=== PATIENT | female | born 2000 | race Caucasian/White ===

== ENCOUNTER 2023-03-25 15:29 | Emergency (ER) | payer OTHER, SELFPAY ==
[2023-03-25 15:32] VITALS: BP 140/92; PULSE 129; RESP 18; TEMP 37; O2SAT 98; BMI 37.8
--- NOTE | 2023-03-25 15:38 | US_ITS ---
[address] [address] Patient Name: DANIEL ARMENDARIZ MRN: [id number] date: 2000 Sex: F Assigned Patient Location: ER Current Patient Location: ER Accession/Order Number: [id number] Exam Date: 03/25/2023 15:45 Report Date: 03/25/2023 16:33 At the request of: VIOLETA SHARP Procedure: US OB transvaginal PROCEDURE: US OB transvaginal, 03/25/2023 3:45 PM EDT CLINICAL INDICATIONS: Encounter for first trimester , vaginal bleeding, passing clots for 2 hours 1 para 0 LMP 02/11/2023 Expected gestational age by LMP: 6 weeks 0 days Expected ANTONIO by LMP: 11/18/2023 COMPARISON: None TECHNIQUE: Transvaginal first trimester obstetric sonogram, grayscale and color assessment. FINDINGS: Uterus: A single intrauterine is identified of uncertain viability. Intrauterine gestational sac, normal yolk sac is evident. There is no sign of embryonic pole or cardiac activity. Mean gestational sac: 1.0 cm Sonographic gestational age: 5 weeks 0 days +/- 3 days Sonographic ANTONIO: 11/25/2023. No perigestational hemorrhage. Maternal right ovary: 3.2 x 2.9 x 2.0 cm, volume 10 mL. Normal sonographic morphology. Maternal left ovary: 3.8 x 2.5 x 2.3 cm. Volume 12 mL. 1.9 x 1.5 x 1.7 cm maternal left ovarian corpus luteal cyst is favored. Transvaginal cervical length, 4.5 cm. Closed. US/US OB transvaginal IMPRESSION: 1. Single intrauterine , uncertain viability. Intrauterine gestational sac with normal yolk sac is evident. Embryonic pole or cardiac activity could not be documented. 14 day follow-up sonography recommended. 2. Gestational sac size would be consistent with 5 week 0 day gestation +/- days 3. Sonographic ANTONIO 11/25/2023 4. No perigestational hemorrhage 5. Normal maternal right ovarian sonographic morphology 6. 1.9 cm maternal left ovarian corpus luteal cyst Electronically authenticated by: MADDISON BACK Date: 03/25/2023 16:33
--- NOTE | 2023-03-25 15:45 | ED.PREGNANC1 ---
HPI - General Chief complaint: OB/Uterine Contractions Stated complaint: MISCARRIAGE Time Seen by Provider: 03/25/23 15:32 Source: patient and family Mode of arrival: walk-in Limitations: no limitations History of Present Illness HPI Narrative: patient's here for vaginal bleeding and abdominal cramping. She believes she is approximately six weeks based on her last menstrual period. This is her 1st . She does not know her blood type or Rh. 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 She did not work last night but she still in that sleep pattern. She says around 2:30 this afternoon she woke up she had blood on her legs. Here in the Emergency Room she says she passed a clot that was approximately 3 cm in diameter but she flushed it did not seem of force. She has not seen Dr. Cha as of yet but is scheduled to do so. She has no other current medical problems. Related Data Home Medications Medication Instructions Recorded Confirmed No Known Home Medications 03/25/23 03/25/23 Allergies Allergy/AdvReac Type Severity Reaction Status Date / Time No Known Drug Allergies Allergy Verified 03/25/23 15:32 Exam Narrative Exam Narrative: awake alert somewhat apprehensive and anxious. Vital signs are stable. Color is good skin is warm and dry she's not appear to be dehydrated or ill. She's not had vomiting. No evidence of pallor or anemia on the clinical exam. She has no shortness of breath does not have any chest pain or abdominal pain at this time. She will be taken ultrasound for transvaginal ultrasonography. Constitutional Vital Signs, click to edit/add: Last Vital Signs Temp 98.6 F 03/25/23 15:32 Pulse 129 H 03/25/23 15:32 Resp 18 03/25/23 15:32 BP 140/92 H 03/25/23 15:32 Pulse Ox 98 03/25/23 15:32 O2 Del Method Room Air 03/25/23 15:32 Course Vital Signs Vital signs: Vital Signs Temperature 98.6 F 03/25/23 15:32 Pulse Rate 129 H 03/25/23 15:32 Respiratory Rate 18 03/25/23 15:32 Blood Pressure 140/92 H 03/25/23 15:32 Pulse Oximetry 98 03/25/23 15:32 Oxygen Delivery Method Room Air 03/25/23 15:32 Temperature 98.6 F 03/25/23 15:32 Pulse Rate 129 H 03/25/23 15:32 Respiratory Rate 18 03/25/23 15:32 Blood Pressure 140/92 H 03/25/23 15:32 Pulse Oximetry 98 03/25/23 15:32 Oxygen Delivery Method Room Air 03/25/23 15:32 MDM - OB/Uterine Contractions MDM Narrative Medical decision making narrative: transvaginal ultrasound does not show any evidence of an ectopic or tubal . There is evidence of gestational sac and embryonic pole but there is no cardiac activity. Her quantitative hCG is pending. This report was given to the patient and she was advised to follow up with her [employer]TER on Monday. She is Rh positive. 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 Lab Data Labs: Lab Results 03/25/23 Range/Units 15:48 WBC 11.4 H (4.0-11.0) 10^3/uL RBC 4.69 (4.20-5.40) 10^6/uL Hgb 13.9 (12.0-16.0) g/dL Hct 40.7 (36.0-48.0) % MCV 86.8 (81.0-99.0) fL MCH 29.6 (26.7-34.0) pg MCHC 34.2 (29.9-35.2) g/dL RDW 11.8 (11.0-15.0) % Plt Count 281 (150-450) 10^3/uL MPV 9.9 (9.5-13.5) fL Neut % (Auto) 68.2 (43.0-75.0) % Lymph % (Auto) 25.0 (20.5-60.0) % Pender % (Auto) 6.0 (1.7-12.0) % Eos % (Auto) 0.1 L (0.9-7.0) % Baso % (Auto) 0.4 (0.2-2.0) % Neut # (Auto) 7.8 H (1.4-6.5) 10^3/uL Lymph # (Auto) 2.9 (1.2-3.8) 10^3/uL Pender # (Auto) 0.7 (0.3-0.8) 10^3/uL Eos # (Auto) 0.0 (0.0-0.7) 10^3/uL Baso # (Auto) 0.0 (0.0-0.1) 10^3/uL Abs Immat Gran (auto) 0.03 (0.00-0.03) 10^3/uL Imm/Tot Granulo (auto) 0.3 (0.0-0.5) % Blood Type A Positive Discharge Plan Discharge Chief Complaint: OB/Uterine Contractions Clinical Impression: Miscarriage, threatened, early Patient Disposition: Home, Self-Care Time of Disposition Decision: 17:09 Prescriptions / Home Meds: No Action No Known Home Medications Additional Instructions: repeat hCG on Monday, then follow-up with Dr. Cha. Bedrest until then Stand Alone Forms: Portal Instructions Referrals: Physician,Non-Staff, [Primary Care Provider] - 1 week
[2023-03-25 15:58] LABS: Basophils Percent Auto 0.4 % (0.2-2.0); Eosinophils Percent Auto 0.1 % (0.9-7.0); Hematocrit 40.7 % (36.0-48.0); Hemoglobin 13.9 g/dL (12.0-16.0); Immature Granulocytes Abs Auto 0.03 10^3/uL (0.00-0.03); Immature Granulocytes Pct Auto 0.3 % (0.0-0.5); Lymphocytes Absolute Auto 2.9 10^3/uL (1.2-3.8); Mean Corpuscular HGB Conc 34.2 g/dL (29.9-35.2); Mean Corpuscular Hemoglobin 29.6 pg (26.7-34.0); Mean Corpuscular Volume 86.8 fL (81.0-99.0); Mean Platelet Volume 9.9 fL (9.5-13.5); Monocytes Absolute Auto 0.7 10^3/uL (0.3-0.8); Neutrophils Absolute Auto 7.8 10^3/uL (1.4-6.5); Neutrophils Percent Auto 68.2 % (43.0-75.0); Platelet Count 281 10^3/uL (150-450); Red Blood Count 4.69 10^6/uL (4.20-5.40); Red Cell Distribution Width 11.8 % (11.0-15.0); White Blood Count 11.4 10^3/uL (4.0-11.0)
[2023-03-25 17:31] LABS: HCG Quantitative 9864 mIU/mL
== END 2023-03-25 17:17 | disposition home or self-care (01) ==
PROVIDERS: Emergency Provider Emergency Medicine Emergency Medical Services
DX: O20.0 Threatened abortion (principal); Z3A.01 Less than 8 weeks gestation of pregnancy
CPT/HCPCS: 36415; 76817; 84702; 85025; 86900; 86901; 99284

== ENCOUNTER 2023-03-27 16:51 | Outpatient (OUT) | payer OTHER, SELFPAY ==
[2023-03-27 17:44] LABS: HCG Quantitative 17516 mIU/mL
== END 2023-03-27 16:52 | disposition home or self-care (01) ==
LOC: LAB 16:53
PROVIDERS: PCP Obstetrics & Gynecology; Visit Provider Emergency Medicine Emergency Medical Services
DX: O20.0 Threatened abortion (principal)
CPT/HCPCS: 36415; 84702

== ENCOUNTER 2023-03-30 10:55 | Outpatient (OUT) | payer OTHER, SELFPAY ==
--- NOTE | 2023-03-30 11:02 | US_ITS ---
[address] [address] Patient Name: DANIEL ARMENDARIZ MRN: [id number] date: 2000 Sex: F Assigned Patient Location: US Current Patient Location: Accession/Order Number: [id number] Exam Date: 03/30/2023 11:02 Report Date: 03/30/2023 15:20 At the request of: NAHED SALINAS Procedure: US OB transvaginal EXAMINATION: US OB transvaginal HISTORY: VIABILITY COMPARISON: Ultrasound OB transvaginal 03/25/2023 FINDINGS: GESTATIONAL SAC: Present and normal appearing. YOLK SAC: Present and normal appearing. POLE: Present and normal appearing. CARDIAC: Present. UTERUS: Normal size and appearance. OVARIES: Right: Normal. Left: Corpus lutein cyst. CERVIX: 4.2 cm in length and closed. CUL-DE-SAC: Normal. OTHER: None. AGE BY LMP: 6 weeks 5 days ANTONIO BY LMP: 11/18/2023 AGE BY US CRL: 5 weeks 5 days ANTONIO BY US CRL: 11/25/2023 US/US OB transvaginal IMPRESSION: 1. Single live intrauterine . Electronically authenticated by: RAMA BOWMAN Date: 03/30/2023 15:20
== END 2023-03-30 10:56 | disposition home or self-care (01) ==
LOC: US 10:56
PROVIDERS: PCP Obstetrics & Gynecology; Visit Provider Obstetrics & Gynecology
DX: Z34.91 Encounter for supervision of normal pregnancy, unspecified, first trimester (principal); N92.6 Irregular menstruation, unspecified
CPT/HCPCS: 76817

== ENCOUNTER 2023-05-02 08:04 | Outpatient (OUT) | payer OTHER, SELFPAY ==
[2023-05-02 08:29] LABS: Basophils Percent Auto 0.3 % (0.2-2.0); Eosinophils Percent Auto 0.1 % (0.9-7.0); Hemoglobin 12.6 g/dL (12.0-16.0); Immature Granulocytes Abs Auto 0.02 10^3/uL (0.00-0.03); Immature Granulocytes Pct Auto 0.2 % (0.0-0.5); Lymphocytes Absolute Auto 2.2 10^3/uL (1.2-3.8); Lymphocytes Percent Auto 24.1 % (20.5-60.0); Mean Corpuscular Hemoglobin 30.1 pg (26.7-34.0); Mean Corpuscular Volume 86.1 fL (81.0-99.0); Mean Platelet Volume 10.8 fL (9.5-13.5); Monocytes Absolute Auto 0.5 10^3/uL (0.3-0.8); Monocytes Percent Auto 5.2 % (1.7-12.0); Neutrophils Absolute Auto 6.3 10^3/uL (1.4-6.5); Neutrophils Percent Auto 70.1 % (43.0-75.0); Platelet Count 199 10^3/uL (150-450); Red Blood Count 4.18 10^6/uL (4.20-5.40); Red Cell Distribution Width 12.1 % (11.0-15.0)
[2023-05-02 08:50] LABS: Estimated Average Glucose 82 mg/dL; Glycohemoglobin A1C 4.5 % (4.5-6.2)
[2023-05-03 07:12] LABS: Rubella Antibodies, IgG 7.11 index (Immune >0.99)
[2023-05-03 08:12] LABS: HIV Ab/p24 Ag Screen Non Reactive (Non Reactive)
[2023-05-03 10:11] LABS: Rapid Plasma Reagin, Quant Non Reactive titer (NonRea<1:1)
[2023-05-03 11:11] LABS: HBsAg Screen Negative (Negative); HCV Ab Non Reactive (Non Reactive)
== END 2023-05-02 08:05 | disposition home or self-care (01) ==
PROVIDERS: Visit Provider Obstetrics & Gynecology
DX: N92.6 Irregular menstruation, unspecified (principal)
CPT/HCPCS: 36415; 83036; 84443; 85025; 86592; 86762; 86803; 86850; 86900; 86901; 87086; 87340; 87389

== ENCOUNTER 2023-06-14 21:46 | Outpatient (REF) | payer OTHER, SELFPAY ==
[2023-06-21 22:11] LABS: Age Gdln ACOG Testing Note (.); HPV Aptima Negative (Negative); IGP, rfx Aptima HPV ASCU Note (.)
== END 2023-06-14 21:47 | disposition home or self-care (01) ==
LOC: LAB 21:46
PROVIDERS: Visit Provider Obstetrics & Gynecology
DX: Z01.419 Encounter for gynecological examination (general) (routine) without abnormal findings (principal)
CPT/HCPCS: 87624; G0145

== ENCOUNTER 2023-06-20 16:20 | Outpatient (OUT) | payer OTHER, SELFPAY ==
[2023-06-20 17:15] LABS: Thyroid Stimulating Hormone 4.096 uIU/mL (0.358-3.740)
== END 2023-06-20 16:21 | disposition home or self-care (01) ==
LOC: LAB 16:22
PROVIDERS: Visit Provider Obstetrics & Gynecology
DX: R79.89 Other specified abnormal findings of blood chemistry (principal)
CPT/HCPCS: 36415; 84443

== ENCOUNTER 2023-07-12 07:54 | Outpatient (OUT) | payer BC, OTHER, SELFPAY ==
--- NOTE | 2023-07-12 07:55 | US_ITS ---
[address] [address] Patient Name: DANIEL ARMENDARIZ MRN: [id number] date: 2000 Sex: F Assigned Patient Location: US Current Patient Location: Accession/Order Number: [id number] Exam Date: 07/12/2023 07:55 Report Date: 07/12/2023 09:22 At the request of: NAHED SALINAS Procedure: US OB cervical length EXAMINATION: US OB anatomy, US OB cervical length HISTORY: ANATOMY COMPARISON: No relevant comparison available. TECHNIQUE: Transabdominal sonographic examination was performed for obstetrical and evaluation. FINDINGS: Number: 1 Heart Rate: 150.0 bpm H.B. /min Amniotic Fluid Volume: Subjectively normal position: Variable Placental Location: ANTERIOR, grade 1. Placental edge 5.1 cm from the cervical os Cervix Length: 4.3 cm , closed Normal anatomy: Lateral ventricles, cerebellum, posterior fossa, nose, lips, orbits, four-chamber heart, diaphragm, stomach, kidneys, abdominal cord insertion, bladder, umbilical arteries, three-vessel cord, spine, extremities Nonvisualized: RVOT, LVOT BIOMETRY: BPD: 5.1 cm 21 weeks 4 days , 84% HC: 18.5 cm 20 weeks 6 days, 56% AC: 16.2 cm 21 weeks 2 days, 67% FL: 3.7 cm 21 weeks 4 days , 76% EFW:418.5 grams; 15 ounces, 86% FL/AC: 22.6 FL/BPD: 71.3 HC/AC: 1.2 GESTATIONAL AGE: Age by EDC: 20 weeks 4 days Age by current US: 21 weeks 2 days ANTONIO by current US: 11/20/2023 ANTONIO by EDC: 11/25/2023 US/US OB cervical length IMPRESSION: Nonvisualization of the ventricular outflow tracts Otherwise normal anatomy scan Closed cervix measuring 4.3 cm in length *Reference: [facility] Practice Guideline for the performance of Obstetric Ultrasound Examinations, April 09, 2007. Electronically authenticated by: KENDALL KRISHNAN Date: 07/12/2023 09:22
--- NOTE | 2023-07-12 07:55 | US_ITS ---
[address] [address] Patient Name: DANIEL ARMENDARIZ MRN: [id number] date: 2000 Sex: F Assigned Patient Location: US Current Patient Location: Accession/Order Number: [id number] Exam Date: 07/12/2023 07:56 Report Date: 07/12/2023 09:22 At the request of: NAHED SALINAS Procedure: US OB anatomy EXAMINATION: US OB anatomy, US OB cervical length HISTORY: ANATOMY COMPARISON: No relevant comparison available. TECHNIQUE: Transabdominal sonographic examination was performed for obstetrical and evaluation. FINDINGS: Number: 1 Heart Rate: 150.0 bpm H.B. /min Amniotic Fluid Volume: Subjectively normal position: Variable Placental Location: ANTERIOR, grade 1. Placental edge 5.1 cm from the cervical os Cervix Length: 4.3 cm , closed Normal anatomy: Lateral ventricles, cerebellum, posterior fossa, nose, lips, orbits, four-chamber heart, diaphragm, stomach, kidneys, abdominal cord insertion, bladder, umbilical arteries, three-vessel cord, spine, extremities Nonvisualized: RVOT, LVOT BIOMETRY: BPD: 5.1 cm 21 weeks 4 days , 84% HC: 18.5 cm 20 weeks 6 days, 56% AC: 16.2 cm 21 weeks 2 days, 67% FL: 3.7 cm 21 weeks 4 days , 76% EFW:418.5 grams; 15 ounces, 86% FL/AC: 22.6 FL/BPD: 71.3 HC/AC: 1.2 GESTATIONAL AGE: Age by EDC: 20 weeks 4 days Age by current US: 21 weeks 2 days ANTONIO by current US: 11/20/2023 ANTONIO by EDC: 11/25/2023 US/US OB anatomy IMPRESSION: Nonvisualization of the ventricular outflow tracts Otherwise normal anatomy scan Closed cervix measuring 4.3 cm in length *Reference: [facility] Practice Guideline for the performance of Obstetric Ultrasound Examinations, April 09, 2007. Electronically authenticated by: KENDALL KRISHNAN Date: 07/12/2023 09:22
--- OUTSIDE RECORDS SUMMARY | 2023-07-12 07:55 | XMS_ITS | CCD ---
Author Name Unknown Address [address] [place] [address] Organization [facility] Care Team Providers Care Tenant Selector Name Role Phone 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 Primary Care Provider TERRENCE WOLF Attending Unavailable ARPIT PAREKH Primary Care Unavailable ARPIT PAREKH Primary Care Unavailable WILLIAM WHITAKER Attending Unavailable NAHED SALINAS Attending Unavailable Medications Current Medications Medication Drug Class(es) Dates Sig (Normalized) Sig (Original) omeprazole 20 mg delayed release oral capsule (1 source) Proton Pump Inhibitor Start: 12-13-2021 take 1 capsule by mouth once daily omeprazole (PRILOSEC) 20 MG delayed release capsule Take 1 capsule by mouth daily 30 capsule 0 12/13/2021 Active sertraline 25 mg oral tablet (2 sources) Serotonin Reuptake Inhibitor Start: 10-24-2018 take 1 tablet by mouth once daily sertraline (ZOLOFT) 25 MG tablet Take 1 tablet by mouth daily 30 tablet 2 10/24/2018 Active Problems Problem Classification Problem Date Documented Da te Episodic/Chronic Abdominal pain (1 source) Finding of sensation of abdomen; Translations: [Unspecified abdominal pain] Episodic Esophageal disorders (3 sources) Gastroesophageal reflux disease without esophagitis; Translations: [Gastro-esophageal reflux disease without esophagitis] Onset: 7 08-26-2016 Chronic Gastrointestinal hemorrhage (1 source) Blood-tinged feces; Translations: [Melena] Episodic Menstrual disorders (2 sources) Irregular periods; Translations: [Irregular menstruation, unspecified] 04-25-2016 Chronic Other complications of (1 source) Mild hyperemesis gravidarum; Translations: [Mild hyperemesis gravidarum] Onset: 3 Episodic Other complications of (1 source) Vomiting of , unspecified; Translations: [Vomiting of , unspecified] Onset: 3 Episodic Other gastrointestinal disorders (1 source) Diarrhea; Translations: [Diarrhea, unspecified] Episodic Residual codes; unclassified (1 source) Requires varicella vaccination; Translations: [Need for varicella vaccine] Episodic Results Test Name Value Interpretation Reference Range Facil ity CBC with Diffon 05-30-2023 Abs. Basophil 0.01 k/uL Normal 0.00-0.20 [facility] Comment on above: Performed By: #### C DP, CP #### [facility] [address] [place] [address] I O Psychologist: Mike Forde MD Abs.Imm.Granulocyte 0.01 k/uL Normal 0.00-0.30 [facility] Comment on above: Performed By: #### C DP, CP #### [facility] [address] [place] [address] I O Psychologist: Mike Forde MD Abs.Neutrophil (Seg) 6.24 k/uL Normal 2.5-7.0 [facility] Comment on above: Performed By: #### C DP, CP #### [facility] [address] [place] [address] I O Psychologist: Mike Forde MD Basophils/100 WBC (Bld) 0 % Normal 0-2 [facility] Comment on above: Performed By: #### C DP, CP #### [facility] [address] [place] [address] I O Psychologist: Mike Forde MD Eosinophils (Bld) [#/Vol] 0.00 10*3/uL Normal 0.00-0.40 [facility] Comment on above: Performed By: #### C DP, CP #### [facility] [address] [place] [address] I O Psychologist: Mike Forde MD Eosinophils/100 WBC (Bld) 0 % Normal 0-5 [facility] Comment on above: Performed By: #### C DP, CP #### [facility] [address] [place], [place] [id number] I O Psychologist: Mike Forde MD Erythrocyte distribution width (RBC) [Ratio] 11.9 % Low 12.1-15.2 [facility] Comment on above: Performed By: #### C DP, CP #### [facility] [address] [place], [place] [id number] I O Psychologist: Mike Forde MD Hematocrit (Bld) [Volume fraction] 41.1 % Normal 36.0-46.0 [facility] Comment on above: Performed By: #### C DP, CP #### [facility] [address] [place] [address] I O Psychologist: Mike Forde MD Hemoglobin (Bld) [Mass/Vol] 14.5 g/dL Normal 12.0-16.0 [facility] Comment on above: Performed By: #### C DP, CP #### [facility] [address] [place] [address] I O Psychologist: Mike Forde MD Immature granulocytes/100 WBC (Bld) 0 % Normal 0-5 [facility] Comment on above: Performed By: #### C DP, CP #### [facility] [address] [place] [address] I O Psychologist: Mike Forde MD Lymphocytes (Bld) [#/Vol] 1.74 10*3/uL Normal 1.00-4.80 [facility] Comment on above: Performed By: #### C DP, CP #### [facility] [address] [place] [address] I O Psychologist: Mike Forde MD Lymphocytes/100 WBC (Bld) 21 % Normal 15-40 [facility] Comment on above: Performed By: #### C DP, CP #### [facility] [address] [place] [id number] I O Psychologist: Mike Forde MD MCH (RBC) [Entitic mass] 29.2 pg Normal 26.0-34.0 [facility] Comment on above: Performed By: #### C DP, CP #### [facility] [address] [place] [address] I O Psychologist: Mike Forde MD MCHC (RBC) [Mass/Vol] 35.3 g/dL Normal 31.0-37.0 [facility] Comment on above: Performed By: #### C DP, CP #### [facility] [address] [place] [address] I O Psychologist: Mike Forde MD MCV (RBC) [Entitic vol] 82.9 fL Normal 80.0-100.0 [facility] Comment on above: Performed By: #### C DP, CP #### [facility] [address] [place] [address] I O Psychologist: Mike Forde MD Monocytes (Bld) [#/Vol] 0.50 10*3/uL Normal 0.00-1.00 [facility] Comment on above: Performed By: #### C DP, CP #### [facility] [address] [place] [address] I O Psychologist: Mike Forde MD Monocytes/100 WBC (Bld) 6 % Normal 4-8 [facility] Comment on above: Performed By: #### C DP, CP #### [facility] [address] [place] [address] I O Psychologist: Mike Forde MD Neutrophil (Seg) 73 % Normal 47-75 [facility] Comment on above: Performed By: #### C DP, CP #### [facility] [address] [place] [address] I O Psychologist: Mike Forde MD Platelet mean volume (Bld) [Entitic vol] 10.4 fL Normal 6.0-12.0 [facility] Comment on above: Performed By: #### C DP, CP #### [facility] [address] [place] [address] I O Psychologist: Mike Forde MD Platelets (Bld) [#/Vol] 227 10*3/uL Normal 140-450 [facility] Comment on above: Performed By: #### C DP, CP #### [facility] [address] [place] [address] I O Psychologist: Mike Forde MD RBC (Bld) [#/Vol] 4.96 10*6/uL Normal 4.00-5.20 [facility] Comment on above: Performed By: #### C DP, CP #### [facility] [address] [place] [address] I O Psychologist: Mike Forde MD WBC (Bld) [#/Vol] 8.5 10*3/uL Normal 3.5-11.0 [facility] Comment on above: Performed By: #### C DP, CP #### [facility] [address] [place] [address] I O Psychologist: Mike Forde MD Comp Metabolic Profon 2022 Albumin [Mass/Vol] 4.2 g/dL Normal 3.5-5.2 [facility] Comment on above: Performed By: #### C DP, CP #### [facility] [address] [place] [address] I O Psychologist: Mike Forde MD Alkaline Phos 48 U/L Normal 35-104 [facility] Comment on above: Performed By: #### C DP, CP #### [facility] [address] [place] [address] I O Psychologist: Mike Forde MD ALT [Catalytic activity/Vol] 12 U/L Normal 5-33 [facility] Comment on above: Performed By: #### C DP, CP #### [facility] [address] [place], [place] [id number] I O Psychologist: Mike Forde MD Anion gap [Moles/Vol] 15 mmol/L Normal 9-17 [facility] Comment on above: Performed By: #### C DP, CP #### [facility] [address] [place], [place] [id number] I O Psychologist: Mike Forde MD AST [Catalytic activity/Vol] 11 U/L Normal <32 [facility] Comment on above: Performed By: #### C DP, CP #### [facility] [address] [place], [place] [id number] I O Psychologist: Mike Forde MD Bilirubin [Mass/Vol] mg/dL Low 0.3-1.2 [facility] Comment on above: Performed By: #### C DP, CP #### [facility] [address] [place], [place] [id number] I O Psychologist: Mike Forde MD BUN/CRE Ratio 14 Normal 9-20 [facility] Comment on above: Performed By: #### C DP, CP #### [facility] [address] [place], [place] [id number] I O Psychologist: Mike Forde MD Calcium [Mass/Vol] 9.7 mg/dL Normal 8.6-10.4 [facility] Comment on above: Performed By: #### C DP, CP #### [facility] [address] [place], [place] [id number] I O Psychologist: Mike Forde MD Chloride [Moles/Vol] 101 mmol/L Normal 98-107 [facility] Comment on above: Performed By: #### C DP, CP #### [facility] [address] [place], [place] [id number] I O Psychologist: Mike Forde MD CO2 [Moles/Vol] 22 mmol/L Normal 20-31 [facility] Comment on above: Performed By: #### C DP, CP #### [facility] [address] [place], [place] [id number] I O Psychologist: Mike Forde MD Creatinine [Mass/Vol] 0.5 mg/dL Normal 0.5-0.9 [facility] Comment on above: Performed By: #### C DP, CP #### [facility] [address] [place], [place] [id number] I O Psychologist: Mike Forde MD GFR/1.73 sq M.predicted among non-blacks MDRD (S/P/Bld) [Vol rate/Area] mL/min/{1.73_m2} Normal >60 [facility] Comment on above: Result Comment: These results are not intended for use in patients <18 years of age. eGFR results are calculated without a race factor using the 2020 CKD-EPI equation. Careful clinical correlation is recommended, particularly when comparing to results calculated using previous equations. The CKD-EPI equation is less accurate in patients with extremes of muscle mass, extra-renal metabolism of creatine, excessive creatine ingestion, or following therapy that affects renal tubular secretion. Performed By: #### C DP, CP #### [facility] [address] [place] [address] I O Psychologist: Mike Forde MD Glucose [Mass/Vol] 90 mg/dL Normal 70-99 [facility] Comment on above: Performed By: #### C DP, CP #### [facility] [address] [place] [address] I O Psychologist: Mike Forde MD Potassium [Moles/Vol] 3.5 mmol/L Low 3.7-5.3 [facility] Comment on above: Performed By: #### C DP, CP #### [facility] [address] [place] [address] I O Psychologist: Mike Forde MD Protein [Mass/Vol] 7.5 g/dL Normal 6.4-8.3 [facility] Comment on above: Performed By: #### C DP, CP #### [facility] [address] [place], [place] [id number] I O Psychologist: Mike Forde MD Sodium [Moles/Vol] 138 mmol/L Normal 135-144 [facility] Comment on above: Performed By: #### C DP, CP #### [facility] [address] [place], [place] [id number] I O Psychologist: Mike Forde MD Urea nitrogen [Mass/Vol] 7 mg/dL Normal 6-20 [facility] Comment on above: Performed By: #### C DP, CP #### [facility] [address] [place], [place] [id number] I O Psychologist: Mike Forde MD Basic Metabolic Profon 04-16 Anion gap [Moles/Vol] 15 mmol/L Normal -17 [facility] Comment on above: Performed By: #### C DP, BMP #### [facility] [address] [place] [address] I O Psychologist: Mike Forde MD BUN/CRE Ratio 10 Normal - [facility] Comment on above: Performed By: #### C DP, BMP #### [facility] [address] [place], [place] [id number] I O Psychologist: Mike Forde MD Calcium [Mass/Vol] 10.2 mg/dL Normal 8.6-10.4 [facility] Comment on above: Performed By: #### C DP, BMP #### [facility] [address] [place] [address] I O Psychologist: Mike Forde MD Chloride [Moles/Vol] 98 mmol/L Normal 98-107 [facility] Comment on above: Performed By: #### C DP, BMP #### [facility] [address] [place], [place] [id number] I O Psychologist: Mike Forde MD CO2 [Moles/Vol] 22 mmol/L Normal 20-31 [facility] Comment on above: Performed By: #### C DP, BMP #### [facility] [address] [place], [place] [id number] I O Psychologist: Mike Forde MD Creatinine [Mass/Vol] 0.7 mg/dL Normal 0.5-0.9 [facility] Comment on above: Performed By: #### C DP, BMP #### [facility] [address] [place] [address] I O Psychologist: Mike Forde MD GFR/1.73 sq M.predicted among non-blacks MDRD (S/P/Bld) [Vol rate/Area] mL/min/{1.73_m2} Normal >60 [facility] Comment on above: Result Comment: These results are not intended for use in patients <18 years of age. eGFR results are calculated without a race factor using the 2020 CKD-EPI equation. Careful clinical correlation is recommended, particularly when comparing to results calculated using previous equations. The CKD-EPI equation is less accurate in patients with extremes of muscle mass, extra-renal metabolism of creatine, excessive creatine ingestion, or following therapy that affects renal tubular secretion. Performed By: #### C DP, BMP #### [facility] [address] [place] [address] I O Psychologist: Mike Forde MD Glucose [Mass/Vol] 113 mg/dL High 70-99 [facility] Comment on above: Performed By: #### C DP, BMP #### [facility] [address] [place] [address] I O Psychologist: Mike Forde MD Potassium [Moles/Vol] 3.4 mmol/L Low 3.7-5.3 [facility] Comment on above: Performed By: #### C DP, BMP #### [facility] [address] [place], [place] [id number] I O Psychologist: Mike Forde MD Sodium [Moles/Vol] 135 mmol/L Normal 135-144 [facility] Comment on above: Performed By: #### C DP, BMP #### [facility] [address] [place], [place] [id number] I O Psychologist: Mike Forde MD Urea nitrogen [Mass/Vol] 7 mg/dL Normal 6-20 [facility] Comment on above: Performed By: #### C DP, BMP #### [facility] [address] [place] [id number] I O Psychologist: Mike Forde MD CBC with Diffon 04-16-2023 Abs. Basophil 0.03 k/uL Normal 0.00-0.20 [facility] Comment on above: Performed By: #### C DP, BMP #### [facility] [address] [place] [id number] I O Psychologist: Mike Forde MD Abs.Imm.Granulocyte 0.02 k/uL Normal 0.00-0.30 [facility] Comment on above: Performed By: #### C DP, BMP #### [facility] [address] [place], [place] [id number] I O Psychologist: Mike Forde MD Abs.Neutrophil (Seg) 7.51 k/uL High 2.5-7.0 [facility] Comment on above: Performed By: #### C DP, BMP #### [facility] [address] [place], [place] [id number] I O Psychologist: Mike Forde MD Basophils/100 WBC (Bld) 0 % Normal 0-2 [facility] Comment on above: Performed By: #### C DP, BMP #### [facility] [address] [place], [place] [id number] I O Psychologist: Mike Forde MD Eosinophils (Bld) [#/Vol] 0.03 10*3/uL Normal 0.00-0.40 [facility] Comment on above: Performed By: #### C DP, BMP #### [facility] [address] [place] [address] I O Psychologist: Mike Forde MD Eosinophils/100 WBC (Bld) 0 % Normal 0-5 [facility] Comment on above: Performed By: #### C DP, BMP #### [facility] [address] [place] [address] I O Psychologist: Mike Forde MD Erythrocyte distribution width (RBC) [Ratio] 11.8 % Low 12.1-15.2 [facility] Comment on above: Performed By: #### C DP, BMP #### [facility] [address] [place] [address] I O Psychologist: Mike Forde MD Hematocrit (Bld) [Volume fraction] 43.4 % Normal 36.0-46.0 [facility] Comment on above: Performed By: #### C DP, BMP #### [facility] [address] [place] [address] I O Psychologist: Mike Forde MD Hemoglobin (Bld) [Mass/Vol] 15.5 g/dL Normal 12.0-16.0 [facility] Comment on above: Performed By: #### C DP, BMP #### [facility] [address] [place] [address] I O Psychologist: Mike Forde MD Immature granulocytes/100 WBC (Bld) 0 % Normal 0-5 [facility] Comment on above: Performed By: #### C DP, BMP #### [facility] [address] [place] [address] I O Psychologist: Mike Forde MD Lymphocytes (Bld) [#/Vol] 2.33 10*3/uL Normal 1.00-4.80 [facility] Comment on above: Performed By: #### C DP, BMP #### [facility] [address] [place] [id number] I O Psychologist: Mike Forde MD Lymphocytes/100 WBC (Bld) 22 % Normal 15-40 [facility] Comment on above: Performed By: #### C DP, BMP #### [facility] [address] [place] [id number] I O Psychologist: Mike Forde MD MCH (RBC) [Entitic mass] 28.9 pg Normal 26.0-34.0 [facility] Comment on above: Performed By: #### C DP, BMP #### [facility] [address] [place] [address] I O Psychologist: Mike Forde MD MCHC (RBC) [Mass/Vol] 35.7 g/dL Normal 31.0-37.0 [facility] Comment on above: Performed By: #### C DP, BMP #### [facility] [address] [place] [id number] I O Psychologist: Mike Forde MD MCV (RBC) [Entitic vol] 80.8 fL Normal 80.0-100.0 [facility] Comment on above: Performed By: #### C DP, BMP #### [facility] [address] [place] [address] I O Psychologist: Mike Forde MD Monocytes (Bld) [#/Vol] 0.88 10*3/uL Normal 0.00-1.00 [facility] Comment on above: Performed By: #### C DP, BMP #### [facility] [address] [place] [address] I O Psychologist: Mike Forde MD Monocytes/100 WBC (Bld) 8 % Normal 4-8 [facility] Comment on above: Performed By: #### C DP, BMP #### [facility] [address] [place] [address] I O Psychologist: Mike Forde MD Neutrophil (Seg) 70 % Normal 47-75 [facility] Comment on above: Performed By: #### C DP, BMP #### [facility] [address] [place] [address] I O Psychologist: Mike Forde MD Platelet mean volume (Bld) [Entitic vol] 10.5 fL Normal 6.0-12.0 [facility] Comment on above: Performed By: #### C DP, BMP #### [facility] [address] [place] [address] I O Psychologist: Mike Forde MD Platelets (Bld) [#/Vol] 279 10*3/uL Normal 140-450 [facility] Comment on above: Performed By: #### C DP, BMP #### [facility] [address] [place] [address] I O Psychologist: Mike Forde MD RBC (Bld) [#/Vol] 5.37 10*6/uL High 4.00-5.20 [facility] Comment on above: Performed By: #### C DP, BMP #### [facility] [address] [place] [address] I O Psychologist: Mike Forde MD WBC (Bld) [#/Vol] 10.8 10*3/uL Normal 3.5-11.0 [facility] Comment on above: Performed By: #### C DP, BMP #### [facility] [address] [place] [address] I O Psychologist: Mike Forde MD CBC with Auto Differentialon 12-13-2021 Absolute Eos # 0.00 [facility] Absolute Lymph # 1.90 [facility] Absolute Major # 0.50 [facility] Basophils (Bld) [#/Vol] 0.00 10*3/uL [facility] Basophils/100 WBC (Bld) 0 % 0 - 2 % [facility] Differential Type YES [facility] Eosinophils/100 WBC (Bld) 0 % 0 - 5 % [facility] Hematocrit (Bld) [Volume fraction] 43.5 % 36 - 46 % [facility] Hemoglobin (Bld) [Mass/Vol] 14.6 g/dL 12.0 - 16.0 g/dL [facility] Lymphocytes/100 WBC (Bld) 21 % 15 - 40 % [facility] MCH (RBC) [Entitic mass] 28.9 pg 26 - 34 pg [facility] MCHC (RBC) [Mass/Vol] 33.5 g/dL 31 - 37 g/dL [facility] MCV (RBC) [Entitic vol] 86.2 fL 80 - 100 fL [facility] Monocytes/100 WBC (Bld) 5 % 4 - 8 % [facility] Platelet distribution width (Bld) [Ratio] 12.3 % 12.1 - 15.2 % [facility] Platelets (Bld) [#/Vol] 265 10*3/uL [facility] RBC (Bld) [#/Vol] 5.05 10*6/uL 4.0 - 5.2 m/uL [facility] Segmented neutrophils/100 WBC (Bld) 74 % 47 - 75 % [facility] Segs Absolute 6.60 [facility] WBC (Bld) [#/Vol] 9.1 10*3/uL [facility] Comprehensive Metabolic Pane davi 12-13-2021 Albumin [Mass/Vol] 4.3 g/dL 3.5 - 5.2 g/dL [facility] ALP (Bld) [Catalytic activity/Vol] 77 U/L 35 - 104 U/L [facility] ALT [Catalytic activity/Vol] 23 U/L 5 - 33 U/L [facility] Anion gap [Moles/Vol] 11 mmol/L 9 - 17 mmol/L [facility] AST [Catalytic activity/Vol] 15 U/L <32 [facility] Bilirubin [Mass/Vol] 0.51 mg/dL 0.30 - 1.20 mg/dL [facility] Calcium [Mass/Vol] 9.6 mg/dL 8.6 - 10.4 mg/dL [facility] Chloride [Moles/Vol] 102 mmol/L 98 - 107 mmol/L [facility] CO2 [Moles/Vol] 25 mmol/L 20 - 31 mmol/L [facility] Creatinine [Mass/Vol] 0.77 mg/dL 0.50 - 0.90 mg/dL [facility] Free PSA/Total PSA [Mass fraction] 7.4 g/dL 6.4 - 8.3 g/dL [facility] GFR >60 >60 mL/min [facility] GFR Non- >60 >60 mL/min [facility] GFR/1.73 sq M.predicted MDRD (S/P/Bld) [Vol rate/Area] [facility] Comment on above: Average GFR for 20-2 9 years old: 116 mL/min/1.73sq m Chronic Kidney Disease: <60 mL/min/1.73sq m Kidney failure: <15 mL/min/1.73sq m eGFR calculated using average adult body mass. Additional eGFR calculator available at: http://www.[employer]/multiple_crcl_2012.htm Glucose [Mass/Vol] 93 mg/dL 70 - 99 mg/dL [facility] Potassium [Moles/Vol] 4.2 mmol/L 3.7 - 5.3 mmol /L [facility] Sodium [Moles/Vol] 138 mmol/L 135 - 144 mmol/L [facility] Urea nitrogen (BldV) [Mass/Vol] 9 mg/dL 6 - 20 mg/dL [facility] Urea nitrogen/Creatinine (Bld) [Mass ratio] 12 [facility] Encounters Encounter Date Encounter Type Care Provider Facility Start: 06-14-2023 End: 06-14-2023 ambulatory NAHED SALINAS Not Available Start: 05-30-2023 End: 05-31-2023 Emergency department patient visit TERRENCE WOLF [facility] Start: 04-16-2023 End: 04-17-2023 Emergency department patient visit ARPITESTELA BHAGATKIMINeelam [facility] Start: 12-13-2021 End: 12-13-2021 Subsequent hospital visit by physician Arpit Leblanc CNP Work Phone: [facility] Comment on above: Blood in stool, zeina k; Gastroesophageal reflux disease without esophagitis; Diarrhea, unspecified type; Abdominal cramping Start: 03-01-2019 End: 03-01-2019 Subsequent hospital visit by physician 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 [facility] Comment on above: Need for varicella v accine Procedures Date Procedure Procedure Detail Performing Clinician Start: 12-13-2021 Comprehensive metabo lic panel Arpit Leblanc CNP Work Phone: Plan of Treatment Date Care Activity Detail Author Start: 11-26-2029 DTaP/Tdap/Td vaccine (3 - Td or Tdap) DTaP/Tdap/Td vaccine (3 - Td or Tdap) [facility] Start: 12-13-2022 Depression Screen Depression Screen [facility] Start: 03-14-2022 COVID-19 Vaccine (3 - Booster for Pfizer series) COVID-19 Vaccine (3 - Booster for Pfizer series) [facility] Start: 03-10-2022 Influenza vaccination Flu vaccine (S angelo Ended) [facility] Start: 01-11-2022 End: 01-11-2022 Patient encounter procedure 01/11/2022 Office Visit Family Medicine 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 APRN - CNP [address] [place] [address] [facility] Start: 2019 Screening for malign ant neoplasm of cervix Pap smear [facility] Start: 03-10-2019 Influenza vaccination Flu vaccine (# 1) [place], [place] Start: 2017 DTaP/Tdap/Td vaccine (1 - Tdap) DTaP/Tdap/Td vaccine (1 - Tdap) [place], [place] Start: 2016 Hepatitis C screening Hepatitis C sc reen [facility] Start: 2014 Chlamydia screen Chlamydia screen [place], [place] Start: 2014 Screening for Chlamy nathalie trachomatis Chlamydia screen [facility] Start: 2013 HIV screen HIV screen [place], [place] Start: 2013 HIV screening HIV screen [facility] Start: 2013 HPV vaccine (1 - Fem dana 3-dose series) HPV vaccine (1 - Female 3-dose series) [place], [place] Start: 2011 Varicella Vaccine (1 of 2 - 13+ 2-dose series) Varicella Vaccine (1 of 2 - 13+ 2-dose series) [place], [place] Start: 2009 HPV vaccine (1 - 2-d ose series) HPV vaccine (1 - 2-dose series) [facility] Start: 1999 Varicella vaccine (1 of 2 - 2-dose childhood series) Varicella vaccine (1 of 2 - 2-dose childhood series) [facility] End: 12-13-2021 CBC W Auto Differential panel - Blood CBC with Auto Differential Lab Routine Diarrhea, unspecified type Blood in stool, gustavo 1 Occurrences starting 12/13/2021 until 12/13/2021 [facility] [employer] Phone: Comment on above: 1 Occurrences starti ng 12/13/2021 until 12/13/2021 End: 12-13-2021 Celiac Disease Panel Celiac Disease Panel Lab Routine Diarrhea, unspecified type Abdominal cramping 1 Occurrences starting 12/13/2021 until 12/13/2021 [facility]: Comment on above: 1 Occurrences starti ng 12/13/2021 until 12/13/2021 End: 12-13-2021 Celiac Plus [facility] [employer] Phone: Comment on above: Once for 1 Occurrenc es starting 12/13/2021 until 12/13/2021 End: 12-13-2021 Comprehensive metabolic 2000 panel - Serum or Plasma Comprehensive Metabolic Panel Lab Routine Blood in stool, gustavo Gastroesophageal reflux disease without esophagitis 1 Occurrences starting 12/13/2021 until 12/13/2021 [employer] Work Phone: Comment on above: 1 Occurrences starti ng 12/13/2021 until 12/13/2021 End: 03-01-2019 Varicella Zoster Antibody, IgG Varicella Zoster Antibody, IgG Lab Routine Need for varicella vaccine 1 Occurrences starting 03/01/2019 until 03/01/2019 [place], [place] Comment on above: 1 Occurrences starti ng 03/01/2019 until 03/01/2019 Varicella Zoster Antibody, IgG Varicella Zoster Antibody, IgG Lab Routine Need for varicella vaccine 03/01/2019 11:50 AM EDT [place], [place] Immunizations Immunization Date Immunization Notes Care Provider Rohit mcnally 09-18-2021 COVID-19, Pfizer Pur ple top, DILUTE for use, 12+ yrs, 30mcg/0.3mL dose 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 APRN - SOLAR PHOTOVOLTAIC CREW LEAD Work Phone: [employer] Work Phone: 11-27-2019 Hepatitis B vaccine (recombinant), CpG adjuvanted Arpitestela Parekh COUNTY LIBRARY DIRECTOR - SOLAR PHOTOVOLTAIC CREW LEAD Work Phone: [employer] Work Phone: 11-27-2019 tetanus toxoid, redu gordon diphtheria toxoid, and acellular pertussis vaccine, adsorbed Arpitestela Parekh COUNTY LIBRARY DIRECTOR - SOLAR PHOTOVOLTAIC CREW LEAD Work Phone: [employer] Work Phone: 03-27-2019 hepatitis B vaccine, adult dosage 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 APRN - SOLAR PHOTOVOLTAIC CREW LEAD Work Phone: [employer] Work Phone: 03-27-2019 measles, mumps and rubella virus vaccine 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 APRN - SOLAR PHOTOVOLTAIC CREW LEAD Work Phone: [facility] [employer] Work Phone: 03-03-2019 measles, mumps and rubella virus vaccine 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 COUNTY LIBRARY DIRECTOR [employer] SOLAR PHOTOVOLTAIC CREW LEAD Work Phone: [employer] Phone: 02-25-2019 hepatitis B vaccine, adult dosage 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 [facility] [employer] Payers Date Payer Category Payer Private Health Insurance [id number] 2018 Unknown BCBS [place] - [place] P PO xxxxxxxxxxxx 2018-Present [address] [place] [address] xxxxxxxxxxxx [id number] 2018 Unknown [id number] 1998 Unknown [id number] 1998 Unknown [id number] 1998 Unknown [id number] Social History Date Type Detail Facility Start: 04-25-2016 End: 11-26-2018 Tobacco smoking status NHIS Never smoker [place], [place] Start: 11-26-2018 [facility] [place] [place] Start: 2000 Sex Assigned At Not on file [place], [place] Start: 04-25-2016 Tobacco use and exposure Smokeless tobacco non-user [facility] [employer] Phone: Start: 12-13-2021 Alcohol intake Current non-dr fabric stretcher of alcohol (finding) [facility] [employer] Phone: Start: 12-13-2021 History SDOH Financial [employer] Phone: Start: 12-13-2021 History 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 [employer] Phone: Evaluation note Note Date & Type Note Facility Evaluation note Diagnosis Blood in stool, gustavo Blood in stool Gastroesophageal reflux disease without esophagitis Esophageal reflux Diarrhea, unspecified type Abdominal cramping Abdominal pain, unspecified site documented in this encounter 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 [employer] [facility] Work Phone: Assessments Diagnosis Need for varicella vaccine Need for prophylactic vaccination and inoculation against varicella Advance Directives No Advanced Directives Records FoundDocuments on File Type Date Recorded Patient Tobacco Feeder Catcher Expl anation Advance Directives and Living Will 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 Documents on File Type Date Recorded Patient Tobacco Feeder Catcher Expl anation ACP-Advance Directive ACP-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 Summary Purpose Family History No Family History Records FoundNo Family History Records Found Additional Source Comments Care Teams (unrecognized sec tion and content) Tenant Selector Relationship Specialty Start Date End Date 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, 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 This clinical summary was aggregated from multiple sources. Caution should be exercised in using it in the provision of clinical care. This summary normalizes information from multiple sources, and as a consequence, information in this document may materially change the coding, format and clinical context of patient data. In addition, data may be omitted in some cases. CLINICAL DECISIONS SHOULD BE BASED ON THE PRIMARY CLINICAL RECORDS. [employer] provides no warranty or guarantee of the accuracy or completeness of information in this document.
== END 2023-07-12 07:55 | disposition home or self-care (01) ==
PROVIDERS: Visit Provider Obstetrics & Gynecology
DX: Z34.92 Encounter for supervision of normal pregnancy, unspecified, second trimester (principal); Z3A.20 20 weeks gestation of pregnancy
CPT/HCPCS: 76805; 76817

== ENCOUNTER 2023-07-31 08:18 | Outpatient (OUT) | payer BC, OTHER, SELFPAY ==
--- OUTSIDE RECORDS SUMMARY | 2023-07-31 08:26 | XMS_ITS | CCD ---
Author Name Unknown Address [address] [place] [address] Organization [facility] Care Team Providers Care Crew Lead Name Role Phone 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 Primary Care Provider TERRENCE WOLF Attending Unavailable ARPIT PAREKH Primary Care Unavailable ARPIT PAREKH Primary Care Unavailable WILLIAM WHITAKER Attending Unavailable ALICIA CLANCY Attending Unavailable NAHED SALINAS Attending Unavailable Medications [...] unspecified; Translations: [Vomiting of , unspecified] Onset: Episodic Other gastrointestinal disorders (1 source) Diarrhea; Translations: [Diarrhea, unspecified] Episodic Residual codes; unclassified (1 source) Requires varicella vaccination; Translations: [Need for varicella vaccine] Episodic Results Test Name Value Interpretation Reference Range Facil ity CBC with Diffon 05-30-2023 Abs. Basophil 0.01 k/uL Normal 0.00-0.20 [facility] Comment on above: Performed By: #### C DP, CP #### [facility] [address] [place] [address] Sleep Lab Technologist: Mike Forde MD Abs.Imm.Granulocyte 0.01 k/uL Normal 0.00-0.30 [facility] Comment on above: Performed By: #### C DP, CP #### [facility] [address] [place] [address] Sleep Lab Technologist: Mike Forde MD Abs.Neutrophil (Seg) 6.24 k/uL Normal 2.5-7.0 [facility] Comment on above: Performed By: #### C DP, CP #### [facility] [address] [place] [address] Sleep Lab Technologist: Mike Forde MD Basophils/100 WBC (Bld) 0 % Normal 0-2 [facility] Comment on above: Performed By: #### C DP, CP #### [facility] [address] [place] [address] Sleep Lab Technologist: Mike Forde MD Eosinophils (Bld) [#/Vol] 0.00 10*3/uL Normal 0.00-0.40 [facility] Comment on above: Performed By: #### C DP, CP #### [facility] [address] [place] [address] Sleep Lab Technologist: Mike Forde MD Eosinophils/100 WBC (Bld) 0 % Normal 0-5 [facility] Comment on above: Performed By: #### C DP, CP #### [facility] [address] [place] [address] Sleep Lab Technologist: Mike Forde MD Erythrocyte distribution width (RBC) [Ratio] 11.9 % Low 12.1-15.2 [facility] Comment on above: Performed By: #### C DP, CP #### [facility] [address] [place] [id number] Sleep Lab Technologist: Mike Forde MD Hematocrit (Bld) [Volume fraction] 41.1 % Normal 36.0-46.0 [facility] Comment on above: Performed By: #### C DP, CP #### [facility] [address] [place] [address] Sleep Lab Technologist: Mike Forde MD Hemoglobin (Bld) [Mass/Vol] 14.5 g/dL Normal 12.0-16.0 [facility] Comment on above: Performed By: #### C DP, CP #### [facility] [address] [place] [address] Sleep Lab Technologist: Mike Forde MD Immature granulocytes/100 WBC (Bld) 0 % Normal 0-5 [facility] Comment on above: Performed By: #### C DP, CP #### [facility] [address] [place] [address] Sleep Lab Technologist: Mike Forde MD Lymphocytes (Bld) [#/Vol] 1.74 10*3/uL Normal 1.00-4.80 [facility] Comment on above: Performed By: #### C DP, CP #### [facility] [address] [place] [id number] Sleep Lab Technologist: Mike Forde MD Lymphocytes/100 WBC (Bld) 21 % Normal 15-40 [facility] Comment on above: Performed By: #### C DP, CP #### [facility] [address] [place] [address] Sleep Lab Technologist: Mike Forde MD MCH (RBC) [Entitic mass] 29.2 pg Normal 26.0-34.0 [facility] Comment on above: Performed By: #### C DP, CP #### [facility] [address] [place] [address] Sleep Lab Technologist: Mike Forde MD MCHC (RBC) [Mass/Vol] 35.3 g/dL Normal 31.0-37.0 [facility] Comment on above: Performed By: #### C DP, CP #### [facility] [address] [place] [address] Sleep Lab Technologist: Mike Forde MD MCV (RBC) [Entitic vol] 82.9 fL Normal 80.0-100.0 [facility] Comment on above: Performed By: #### C DP, CP #### [facility] [address] [place] [address] Sleep Lab Technologist: Mike Forde MD Monocytes (Bld) [#/Vol] 0.50 10*3/uL Normal 0.00-1.00 [facility] Comment on above: Performed By: #### C DP, CP #### [facility] [address] [place] [address] Sleep Lab Technologist: Mike Forde MD Monocytes/100 WBC (Bld) 6 % Normal 4-8 [facility] Comment on above: Performed By: #### C DP, CP #### [facility] [address] [place] [address] Sleep Lab Technologist: Mike Forde MD Neutrophil (Seg) 73 % Normal 47-75 [facility] Comment on above: Performed By: #### C DP, CP #### [facility] [address] [place] [address] Sleep Lab Technologist: Mike Forde MD Platelet mean volume (Bld) [Entitic vol] 10.4 fL Normal 6.0-12.0 [facility] Comment on above: Performed By: #### C DP, CP #### [facility] [address] [place] [address] (949) Sleep Lab Technologist: Mike Forde MD Platelets (Bld) [#/Vol] 227 10*3/uL Normal 140-450 [facility] Comment on above: Performed By: #### C DP, CP #### [facility] [address] [place] [address] (713) Sleep Lab Technologist: Mike Forde MD RBC (Bld) [#/Vol] 4.96 10*6/uL Normal 4.00-5.20 [facility] Comment on above: Performed By: #### C DP, CP #### [facility] [address] [place] [address] (909) Sleep Lab Technologist: Mike Forde MD WBC (Bld) [#/Vol] 8.5 10*3/uL Normal 3.5-11.0 [facility] Comment on above: Performed By: #### C DP, CP #### [facility] [address] [place] [address] (171) Sleep Lab Technologist: Mike Forde MD Comp Metabolic Profon 2022 Albumin [Mass/Vol] 4.2 g/dL Normal 3.5-5.2 [facility] Comment on above: Performed By: #### C DP, CP #### [facility] [address] [place] [address] (754) Sleep Lab Technologist: Mike Forde MD Alkaline Phos 48 U/L Normal 35-104 [facility] Comment on above: Performed By: #### C DP, CP #### [facility] [address] [place] [address] (642) Sleep Lab Technologist: Mike Forde MD ALT [Catalytic activity/Vol] 12 U/L Normal 5-33 [facility] Comment on above: Performed By: #### C DP, CP #### [facility] [address] [place], [place] [id number] Sleep Lab Technologist: Mike Forde MD Anion gap [Moles/Vol] 15 mmol/L Normal 9-17 [facility] Comment on above: Performed By: #### C DP, CP #### [facility] [address] [place], [place] [id number] Sleep Lab Technologist: Mike Forde MD AST [Catalytic activity/Vol] 11 U/L Normal <32 [facility] Comment on above: Performed By: #### C DP, CP #### [facility] [address] [place] [address] Sleep Lab Technologist: Mike Forde MD Bilirubin [Mass/Vol] mg/dL Low 0.3-1.2 [facility] Comment on above: Performed By: #### C DP, CP #### [facility] [address] [place], [place] [phone] Sleep Lab Technologist: Mike Forde MD BUN/CRE Ratio 14 Normal 9-20 [facility] Comment on above: Performed By: #### C DP, CP #### [facility] [address] [place] [address] Sleep Lab Technologist: Mike Forde MD Calcium [Mass/Vol] 9.7 mg/dL Normal 8.6-10.4 [facility] Comment on above: Performed By: #### C DP, CP #### [facility] [address] [place], [place] [id number] Sleep Lab Technologist: Mike Forde MD Chloride [Moles/Vol] 101 mmol/L Normal 98-107 [facility] Comment on above: Performed By: #### C DP, CP #### [facility] [address] [place], [place] [id number] Sleep Lab Technologist: Mike Forde MD CO2 [Moles/Vol] 22 mmol/L Normal 20-31 [facility] Comment on above: Performed By: #### C DP, CP #### [facility] [address] [place], [place] [id number] Sleep Lab Technologist: Mike Forde MD Creatinine [Mass/Vol] 0.5 mg/dL Normal 0.5-0.9 [facility] Comment on above: Performed By: #### C DP, CP #### [facility] [address] [place], [place] [id number] Sleep Lab Technologist: Mike oFrde MD GFR/1.73 sq M.predicted among non-blacks MDRD (S/P/Bld) [Vol rate/Area] mL/min/{1.73_m2} Normal >60 [facility] Comment on above: Result Comment: These results [...] Performed By: #### C DP, CP #### [facility] [address] [place], [place] [id number] Sleep Lab Technologist: Mike Forde MD Glucose [Mass/Vol] 90 mg/dL Normal 70-99 [facility] Comment on above: Performed By: #### C DP, CP #### [facility] [address] [place], [place] [id number] Sleep Lab Technologist: Mike Forde MD Potassium [Moles/Vol] 3.5 mmol/L Low 3.7-5.3 [facility] Comment on above: Performed By: #### C DP, CP #### [facility] [address] [place], [place] [id number] Sleep Lab Technologist: Mike Forde MD Protein [Mass/Vol] 7.5 g/dL Normal 6.4-8.3 [facility] Comment on above: Performed By: #### C DP, CP #### [facility] [address] [place], [place] [id number] Sleep Lab Technologist: Mike Forde MD Sodium [Moles/Vol] 138 mmol/L Normal 135-144 [facility] Comment on above: Performed By: #### C DP, CP #### [facility] [address] [place], [place] [phone] Sleep Lab Technologist: Mike Forde MD Urea nitrogen [Mass/Vol] 7 mg/dL Normal 6-20 [facility] Comment on above: Performed By: #### C DP, CP #### [facility] [address] [place], [place] [id number] Sleep Lab Technologist: Mike Forde MD Basic Metabolic Profon 04-16 Anion gap [Moles/Vol] 15 mmol/L Normal 9-17 [facility] Comment on above: Performed By: #### C DP, BMP #### [facility] [address] [place], [place] [id number] Sleep Lab Technologist: Mike Forde MD BUN/CRE Ratio 10 Normal 9-20 [facility] Comment on above: Performed By: #### C DP, BMP #### [facility] [address] [place], [place] [phone] Sleep Lab Technologist: Mike Forde MD Calcium [Mass/Vol] 10.2 mg/dL Normal 8.6-10.4 [facility] Comment on above: Performed By: #### C DP, BMP #### [facility] [address] [place], [place] [id number] Sleep Lab Technologist: Mike Forde MD Chloride [Moles/Vol] 98 mmol/L Normal 98-107 [facility] Comment on above: Performed By: #### C DP, BMP #### [facility] [address] [place], [place] [phone] Sleep Lab Technologist: Mike Forde MD CO2 [Moles/Vol] 22 mmol/L Normal 20-31 [facility] Comment on above: Performed By: #### C DP, BMP #### [facility] [address] [place], [place] 6[address] Sleep Lab Technologist: Mike Forde MD Creatinine [Mass/Vol] 0.7 mg/dL Normal 0.5-0.9 [facility] Comment on above: Performed By: #### C DP, BMP #### [facility] [address] [place] [address] Sleep Lab Technologist: Mike Forde MD GFR/1.73 sq M.predicted among non-blacks MDRD (S/P/Bld) [Vol rate/Area] mL/min/{1.73_m2} Normal >60 [facility] Comment on above: Result Comment: These results [...] Performed By: #### C DP, BMP #### [facility] [address] [place], [place] [phone] Sleep Lab Technologist: Mike Forde MD Glucose [Mass/Vol] 113 mg/dL High 70-99 [facility] Comment on above: Performed By: #### C DP, BMP #### [facility] [address] [place] [address] Sleep Lab Technologist: Mike Forde MD Potassium [Moles/Vol] 3.4 mmol/L Low 3.7-5.3 [facility] Comment on above: Performed By: #### C DP, BMP #### [facility] [address] [place], [place] [phone] Sleep Lab Technologist: Mike Forde MD Sodium [Moles/Vol] 135 mmol/L Normal 135-144 [facility] Comment on above: Performed By: #### C DP, BMP #### [facility] [address] [place], [place] [phone] Sleep Lab Technologist: Mike Forde MD Urea nitrogen [Mass/Vol] 7 mg/dL Normal 6-20 [facility] Comment on above: Performed By: #### C DP, BMP #### [facility] [address] [place], [place] [id number] Sleep Lab Technologist: Mike Forde MD CBC with Diffon 04-16-2023 Abs. Basophil 0.03 k/uL Normal 0.00-0.20 [facility] Comment on above: Performed By: #### C DP, BMP #### [facility] [address] [place], [place] [id number] Sleep Lab Technologist: Mike Forde MD Abs.Imm.Granulocyte 0.02 k/uL Normal 0.00-0.30 [facility] Comment on above: Performed By: #### C DP, BMP #### [facility] [address] [place], [place] [address] Sleep Lab Technologist: Mike Forde MD Abs.Neutrophil (Seg) 7.51 k/uL High 2.5-7.0 [facility] Comment on above: Performed By: #### C DP, BMP #### [facility] [address] [place], [place] [id number] Sleep Lab Technologist: Mike Forde MD Basophils/100 WBC (Bld) 0 % Normal 0-2 [facility] Comment on above: Performed By: #### C DP, BMP #### [facility] [address] [place], [place] [id number] Sleep Lab Technologist: Mike Forde MD Eosinophils (Bld) [#/Vol] 0.03 10*3/uL Normal 0.00-0.40 [facility] Comment on above: Performed By: #### C DP, BMP #### [facility] [address] [place], [place] [phone] Sleep Lab Technologist: Mike Forde MD Eosinophils/100 WBC (Bld) 0 % Normal 0-5 [facility] Comment on above: Performed By: #### C DP, BMP #### [facility] [address] [place] [id number] Sleep Lab Technologist: Mike Forde MD Erythrocyte distribution width (RBC) [Ratio] 11.8 % Low 12.1-15.2 [facility] Comment on above: Performed By: #### C DP, BMP #### [facility] [address] [place] [id number] Sleep Lab Technologist: Mike Forde MD Hematocrit (Bld) [Volume fraction] 43.4 % Normal 36.0-46.0 [facility] Comment on above: Performed By: #### C DP, BMP #### [facility] [address] [place] [id number] Sleep Lab Technologist: Mike Forde MD Hemoglobin (Bld) [Mass/Vol] 15.5 g/dL Normal 12.0-16.0 [facility] Comment on above: Performed By: #### C DP, BMP #### [facility] [address] [place], [place] [phone] Sleep Lab Technologist: Mike Forde MD Immature granulocytes/100 WBC (Bld) 0 % Normal 0-5 [facility] Comment on above: Performed By: #### C DP, BMP #### [facility] [address] [place], [place] [id number] Sleep Lab Technologist: Mike Forde MD Lymphocytes (Bld) [#/Vol] 2.33 10*3/uL Normal 1.00-4.80 [facility] Comment on above: Performed By: #### C DP, BMP #### [facility] [address] [place] [address] Sleep Lab Technologist: Mike Forde MD Lymphocytes/100 WBC (Bld) 22 % Normal 15-40 [facility] Comment on above: Performed By: #### C DP, BMP #### [facility] [address] [place] [id number] Sleep Lab Technologist: Mike Forde MD MCH (RBC) [Entitic mass] 28.9 pg Normal 26.0-34.0 [facility] Comment on above: Performed By: #### C DP, BMP #### [facility] [address] [place] [id number] Sleep Lab Technologist: Mike Forde MD MCHC (RBC) [Mass/Vol] 35.7 g/dL Normal 31.0-37.0 [facility] Comment on above: Performed By: #### C DP, BMP #### [facility] [address] [place] [address] Sleep Lab Technologist: Mike Forde MD MCV (RBC) [Entitic vol] 80.8 fL Normal 80.0-100.0 [facility] Comment on above: Performed By: #### C DP, BMP #### [facility] [address] [place] [id number] Sleep Lab Technologist: Mike Forde MD Monocytes (Bld) [#/Vol] 0.88 10*3/uL Normal 0.00-1.00 [facility] Comment on above: Performed By: #### C DP, BMP #### [facility] [address] [place] [address] Sleep Lab Technologist: Mike Forde MD Monocytes/100 WBC (Bld) 8 % Normal 4-8 [facility] Comment on above: Performed By: #### C DP, BMP #### [facility] [address] [place] [address] Sleep Lab Technologist: Mike Forde MD Neutrophil (Seg) 70 % Normal 47-75 [facility] Comment on above: Performed By: #### C DP, BMP #### [facility] [address] [place] [address] Sleep Lab Technologist: Mike Forde MD Platelet mean volume (Bld) [Entitic vol] 10.5 fL Normal 6.0-12.0 [facility] Comment on above: Performed By: #### C DP, BMP #### [facility] [address] [place] [id number] Sleep Lab Technologist: Mike Forde MD Platelets (Bld) [#/Vol] 279 10*3/uL Normal 140-450 [facility] Comment on above: Performed By: #### C DP, BMP #### [facility] [address] [place] [id number] Sleep Lab Technologist: Mike Forde MD RBC (Bld) [#/Vol] 5.37 10*6/uL High 4.00-5.20 [facility] Comment on above: Performed By: #### C DP, BMP #### [facility] [address] [place] [address] Sleep Lab Technologist: Mike Forde MD WBC (Bld) [#/Vol] 10.8 10*3/uL Normal 3.5-11.0 [facility] Comment on above: Performed By: #### C DP, BMP #### [facility] [address] [place] [address] Sleep Lab Technologist: Mike Forde MD CBC with Auto Differentialon 12-13-2021 Absolute Eos # 0.00 [facility] Absolute Lymph # 1.90 [facility] Absolute [place] # 0.50 [facility] Basophils (Bld) [#/Vol] 0.00 10*3/uL [facility] Basophils/100 WBC (Bld) 0 % 0 - 2 % [facility] Differential Type YES [facility] Eosinophils/100 WBC (Bld) 0 % 0 - 5 % [facility] Hematocrit (Bld) [Volume fraction] 43.5 % 36 - 46 % [facility] Hemoglobin (Bld) [Mass/Vol] 14.6 g/dL 12.0 - 16.0 g/dL [facility] Lymphocytes/100 WBC (Bld) 21 % 15 - 40 % [facility] MCH (RBC) [Entitic mass] 28.9 pg 26 - 34 pg [facility] MCHC (RBC) [Mass/Vol] 33.5 g/dL 31 - 37 g/dL [facility] MCV (RBC) [Entitic vol] 86.2 fL 80 - 100 fL [facility] Monocytes/100 WBC (Bld) 5 % 4 - 8 % [facility] Platelet distribution width (Bld) [Ratio] 12.3 % 12.1 - 15.2 % [facility] Platelets (Bld) [#/Vol] 265 10*3/uL [facility] RBC (Bld) [#/Vol] 5.05 10*6/uL 4.0 - 5.2 m/uL [facility] Segmented neutrophils/100 WBC (Bld) 74 % 47 - 75 % [facility] Segs Absolute 6.60 [facility] WBC (Bld) [#/Vol] 9.1 10*3/uL [facility] Comprehensive Metabolic Pane davi 12-13-2021 Albumin [Mass/Vol] 4.3 g/dL 3.5 - 5.2 g/dL [facility] ALP (Bld) [Catalytic activity/Vol] 77 U/L 35 - 104 U/L [facility] ALT [Catalytic activity/Vol] 23 U/L 5 - 33 U/L [facility] Anion gap [Moles/Vol] 11 mmol/L 9 - 17 mmol/L [facility] AST [Catalytic activity/Vol] 15 U/L <32 [facility] Bilirubin [Mass/Vol] 0.51 mg/dL 0.30 - 1.20 mg/dL [facility] Calcium [Mass/Vol] 9.6 mg/dL 8.6 - 10.4 mg/dL [facility] Chloride [Moles/Vol] 102 mmol/L 98 - 107 mmol/L [facility] CO2 [Moles/Vol] 25 mmol/L 20 - 31 mmol/L [facility] Creatinine [Mass/Vol] 0.77 mg/dL 0.50 - 0.90 mg/dL [facility] Free PSA/Total PSA [Mass fraction] 7.4 g/dL 6.4 - 8.3 g/dL [facility] GFR >60 >60 mL/min [facility] GFR Non- >60 >60 mL/min [facility] GFR/1.73 sq M.predicted MDRD (S/P/Bld) [Vol rate/Area] [facility] Comment on above: Average GFR for 20-2 9 years old: 116 mL/min/1.73sq m Chronic Kidney Disease: <60 mL/min/1.73sq m Kidney failure: <15 mL/min/1.73sq m eGFR calculated using average adult body mass. Additional eGFR calculator available at: http://www.[employer]/multiple_crcl_2012.htm Glucose [Mass/Vol] 93 mg/dL 70 - 99 mg/dL [facility] Potassium [Moles/Vol] 4.2 mmol/L 3.7 - 5.3 mmol /L [facility] Sodium [Moles/Vol] 138 mmol/L 135 - 144 mmol/L [facility] Urea nitrogen (BldV) [Mass/Vol] 9 mg/dL 6 - 20 mg/dL [facility] Urea nitrogen/Creatinine (Bld) [Mass ratio] 12 [facility] Encounters Encounter Date Encounter Type Care Provider Facility Start: 07-12-2023 End: 07-12-2023 ambulatory ALICIA CLANCY Not Available Start: 06-14-2023 End: 06-14-2023 ambulatory NAHED SALINAS Not Available Start: 05-30-2023 End: 05-31-2023 Emergency department patient visit TERRENCE WOLF [facility] Start: 04-16-2023 End: 04-17-2023 Emergency department patient visit ARPIT BHAGATKIMINeelam [facility] Start: 12-13-2021 End: 12-13-2021 Subsequent hospital visit by physician 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 APRN - [facility] Work Phone: [facility] Comment on above: [...] DTaP/Tdap/Td vaccine (3 - Td or Tdap) [facility] Start: 12-13-2022 Depression Screen Depression Screen [facility] Start: 03-14-2022 COVID-19 Vaccine (3 - Booster for Pfizer series) COVID-19 Vaccine (3 - Booster for Pfizer series) [facility] Start: 03-10-2022 Influenza vaccination Flu vaccine (S angelo Ended) [facility] Start: 01-11-2022 End: 01-11-2022 Patient encounter procedure 01/11/2022 Office Visit Family Medicine 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, DO - [employer] [address] [place] [address] [facility] Start: 2019 Screening for malign ant neoplasm of cervix Pap smear [facility] Start: 03-10-2019 Influenza vaccination Flu vaccine (# 1) [facility] [place], [place] Start: 2017 DTaP/Tdap/Td vaccine (1 - Tdap) DTaP/Tdap/Td vaccine (1 - Tdap) [place], [place] Start: 2016 Hepatitis C screening Hepatitis C sc reen [facility] Start: 2014 Chlamydia screen Chlamydia screen [place], [place] Start: 2014 Screening for Chlamy nathalie trachomatis Chlamydia screen [facility] Start: 2013 HIV screen HIV screen [place], [place] Start: 2013 HIV screening HIV screen [facility] Start: 2013 HPV vaccine (1 - Fem dana 3-dose series) HPV vaccine (1 - Female 3-dose series) [place], [place] Start: 2011 Varicella Vaccine (1 of 2 - 13+ 2-dose series) Varicella Vaccine (1 of 2 - 13+ 2-dose series) [place], [place] Start: 2009 HPV vaccine (1 - 2-d ose series) HPV vaccine (1 - 2-dose series) [facility] Start: 1999 Varicella vaccine (1 of 2 - 2-dose childhood series) Varicella vaccine (1 of 2 - 2-dose childhood series) [facility] End: 12-13-2021 CBC W Auto Differential panel - Blood CBC with Auto Differential Lab Routine Diarrhea, unspecified type Blood in stool, gustavo 1 Occurrences starting 12/13/2021 until 12/13/2021 [facility] Phone: Comment on above: 1 Occurrences starti ng 12/13/2021 until 12/13/2021 End: 12-13-2021 Celiac Disease Panel Celiac Disease Panel Lab Routine Diarrhea, unspecified type Abdominal cramping 1 Occurrences starting 12/13/2021 until 12/13/2021 [facility] [employer] Phone: Comment on above: 1 Occurrences starti ng 12/13/2021 until 12/13/2021 End: 12-13-2021 Celiac Plus [facility] [employer] Phone: Comment on above: Once for 1 Occurrenc es starting 12/13/2021 until 12/13/2021 End: 12-13-2021 Comprehensive metabolic 2000 panel - Serum or Plasma Comprehensive Metabolic Panel Lab Routine Blood in stool, gustavo Gastroesophageal reflux disease without esophagitis 1 Occurrences starting 12/13/2021 until 12/13/2021 [employer] Work Phone: Comment on above: 1 Occurrences starti ng 12/13/2021 until 12/13/2021 End: 03-01-2019 Varicella Zoster Antibody, IgG Varicella Zoster Antibody, IgG Lab Routine Need for varicella vaccine 1 Occurrences starting 03/01/2019 until 03/01/2019 [place], [place] Comment on above: 1 Occurrences starti ng 03/01/2019 until 03/01/2019 Varicella Zoster Antibody, IgG Varicella Zoster Antibody, IgG Lab Routine Need for varicella vaccine 03/01/2019 11:50 AM EDT [place], [place] Immunizations Immunization Date Immunization Notes Care Provider Rohit mcnally 09-18-2021 COVID-19, Pfizer Pur ple top, DILUTE for use, 12+ yrs, 30mcg/0.3mL dose 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 APRN [employer] Work Phone: [employer] Work Phone: 11-27-2019 Hepatitis B vaccine (recombinant), CpG adjuvanted 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 APRN [employer] Work Phone: [employer] Work Phone: 11-27-2019 tetanus toxoid, redu gordon diphtheria toxoid, and acellular pertussis vaccine, adsorbed 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 APRN [employer] Work Phone: [employer] Work Phone: 03-27-2019 hepatitis B vaccine, adult dosage 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 APRN - [employer] Work Phone: [employer] Work Phone: 03-27-2019 measles, mumps and rubella virus vaccine 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 [employer] KEEPER - [employer]SPORT ENGINEER Work Phone: [employer] Work Phone: 03-03-2019 measles, mumps and rubella virus vaccine 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 FI[employer] TOWER KEEPER - TRANSPORT ENGINEER [facility] Work Phone: 02-25-2019 hepatitis B vaccine, adult dosage 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 [facility] Payers Date Payer Category Payer Unknown [id number] 2022 Private Health Insurance [id number] 2018 Unknown BCBS [place] - [place] P PO xxxxxxxxxxxx 2018-Present [address] [place] [address] xxxxxxxxxxxx [id number] 2018 Unknown [id number] 1998 Unknown [id number] 1998 Unknown [id number] 1998 Unknown [id number] 1998 Unknown [id number] Social History Date Type Detail Facility Start: 04-25-2016 End: 11-26-2018 Tobacco smoking status NHIS Never smoker [place], [place] Start: 11-26-2018 [facility] [place] [place] Start: 2000 Sex Assigned At Not on file [place], [place] Start: 04-25-2016 Tobacco use and exposure Smokeless tobacco non-user [facility] Phone: Start: 12-13-2021 Alcohol intake Current non-dr traffic lieutenant of alcohol (finding) [facility] Phone: Start: 12-13-2021 History [employer] Work Phone: Start: 12-13-2021 History 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 1 [facility] [employer] Phone: Evaluation note Note Date & Type Note Facility Evaluation note Diagnosis Blood in stool, gustavo Blood in stool Gastroesophageal reflux disease without esophagitis Esophageal reflux Diarrhea, unspecified type Abdominal cramping Abdominal pain, unspecified site documented in this encounter [facility] [employer] Phone: Assessments Diagnosis Need for varicella vaccine Need for prophylactic vaccination and inoculation against varicella Advance Directives No Advanced Directives Records FoundDocuments on File Type Date Recorded Patient It Communications Manager Expl anation Advance Directives and Living Will Power of Underwriting Specialist Documents on File Type Date Recorded Patient It Communications Manager Expl anation ACP-Advance Directive ACP-Power of Underwriting Specialist Summary Purpose Family History No Family History Records FoundNo Family History Records Found Additional Source Comments Care Teams (unrecognized sec tion and content) Crew Lead Relationship Specialty Start Date End Date 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, FIRE TOWER KEEPER - TRANSPORT ENGINEER [address] [phone] PCP - General Nurse Practitioner 11/23/16 INFORMATION SOURCE (unrecogn ized section and content) DATE CREATED AUTHOR 06/02/2023 Rachel allen DATE CREATED AUTHOR AUTHOR'S CHARLIE ATJUDD 07/13/2023 [facility]OR[facility] PERTAINING TO PATIENTS WHO ARE [...] BE BASED ON THE PRIMARY CLINICAL RECORDS. [employer] provides no warranty or guarantee of the accuracy or completeness of information in this document.
[2023-07-31 09:01] LABS: Thyroid Stimulating Hormone 5.826 uIU/mL (0.358-3.740)
[2023-08-03 00:06] LABS: AFP Value 165.1 ng/mL (.); Gest. Age on Collection Date 23.3 weeks (.); Gestat. Age Based On As provided (.); Insulin Dep Diabetes No (.); Maternal Age At EDD 25.4 yr (.); OSBR Risk 1 IN 557 (.); Results Report (.)
== END 2023-07-31 08:19 | disposition home or self-care (01) ==
LOC: LAB 08:19
PROVIDERS: Visit Provider Obstetrics & Gynecology
DX: Z34.92 Encounter for supervision of normal pregnancy, unspecified, second trimester (principal); R79.89 Other specified abnormal findings of blood chemistry
CPT/HCPCS: 36415; 82105; 84443

== ENCOUNTER 2023-08-15 08:23 | Outpatient (OUT) | payer BC, OTHER, SELFPAY ==
--- NOTE | 2023-08-15 08:26 | US_ITS ---
[address] [address] Patient Name: DANIEL ARMENDARIZ MRN: [id number] date: 2000 Sex: F Assigned Patient Location: [facility] Current Patient Location: [facility] Accession/Order Number: [id number] Exam Date: 08/15/2023 08:26 Report Date: 08/15/2023 10:00 At the request of: NAHED SALINAS Procedure: US OB incomplete anatomy EXAM: US OB incomplete anatomy HISTORY: INCOMPLETE ANATOMY COMPARISON: Ultrasound OB anatomy 07/12/2023 TECHNIQUE: Transabdominal ultrasound FINDINGS: Presentation: Cephalic Heart rate: 160 beats minute Anatomy: Four-chamber heart, LVOT, RVOT GA: 25 weeks 3 days US/US OB incomplete anatomy IMPRESSION: 1. Single live intrauterine . 2. Adequate visualization of the four-chamber heart and cardiac outflow tracts; no appreciable abnormality. Electronically authenticated by: RAMA BOWMAN Date: 08/15/2023 10:00
--- OUTSIDE RECORDS SUMMARY | 2023-08-15 08:26 | XMS_ITS | CCD ---
Author Name Unknown Address [address] [place] [address] Organization [facility] Care Team Providers Care Shirt Folder Name Role Phone 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 Primary Care Provider TERRENCE WOLF Attending Unavailable ARPIT PAREKH Primary Care Unavailable ARPIT PAREKH Primary Care Unavailable WILLIAM WHITAKER Attending Unavailable ALICIA CLANCY Attending Unavailable NAHED SALINAS Attending Unavailable NAHED SALINAS Attending Unavailable Medications [...] 05-30-2023 Abs. Basophil 0.01 k/uL Normal 0.00-0.20 [facility] Comment on above: Performed By: #### C DP, CP #### [facility] [address] [place] [address] Investment Advisor: Mike Forde MD Abs.Imm.Granulocyte 0.01 k/uL Normal 0.00-0.[address] [facility] Comment on above: Performed By: #### C DP, CP #### [facility] [address] [place] [address] Investment Advisor: Mike Forde MD Abs.Neutrophil (Seg) 6.24 k/uL Normal 2.5-7.0 [facility] Comment on above: Performed By: #### C DP, CP #### [facility] [address] [place] [address] Investment Advisor: Mike Forde MD Basophils/100 WBC (Bld) 0 % Normal 0-[address] [facility] Comment on above: Performed By: #### C DP, CP #### [facility] [address] [place] [address] Investment Advisor: Mike Forde MD Eosinophils (Bld) [#/Vol] 0.00 10*3/uL Normal 0.00-0.[address] [facility] Comment on above: Performed By: #### C DP, CP #### [facility] [address] [place] [address] Investment Advisor: Mike Forde MD Eosinophils/100 WBC (Bld) 0 % Normal 0-[address] [facility] Comment on above: Performed By: #### C DP, CP #### [facility] [address] [place] [address] Investment Advisor: Mike Forde MD Erythrocyte distribution width (RBC) [Ratio] 11.9 % Low 12.1-15.[address] [facility] Comment on above: Performed By: #### C DP, CP #### [facility] [address] [place] [phone] Investment Advisor: Mike Forde MD Hematocrit (Bld) [Volume fraction] 41.1 % Normal 36.0-46.[address] [facility] Comment on above: Performed By: #### C DP, CP #### [facility] [address] [place] [phone] Investment Advisor: Mike Forde MD Hemoglobin (Bld) [Mass/Vol] 14.5 g/dL Normal 12.0-16.[address] [facility] Comment on above: Performed By: #### C DP, CP #### [facility] [address] [place] [address] Investment Advisor: Mike Forde MD Immature granulocytes/100 WBC (Bld) 0 % Normal 0-[address] [facility] Comment on above: Performed By: #### C DP, CP #### [facility] [address] [place] [phone] Investment Advisor: Mike Forde MD Lymphocytes (Bld) [#/Vol] 1.74 10*3/uL Normal 1.00-4.[address] [facility] Comment on above: Performed By: #### C DP, CP #### [facility] [address] [place] [address] Investment Advisor: Mike Forde MD Lymphocytes/100 WBC (Bld) 21 % Normal 15-[address] [facility] Comment on above: Performed By: #### C DP, CP #### [facility] [address] [place] [address] Investment Advisor: Mike Forde MD MCH (RBC) [Entitic mass] 29.2 pg Normal 26.0-34.[address] [facility] Comment on above: Performed By: #### C DP, CP #### [facility] [address] [place] [address] Investment Advisor: Mike Forde MD MCHC (RBC) [Mass/Vol] 35.3 g/dL Normal 31.0-37.0 [facility] Comment on above: Performed By: #### C DP, CP #### [facility] [address] [place] [address] Investment Advisor: Mike Forde MD MCV (RBC) [Entitic vol] 82.9 fL Normal 80.0-100.[address] [facility] Comment on above: Performed By: #### C DP, CP #### [facility] [address] [place] [phone] Investment Advisor: Mike Forde MD Monocytes (Bld) [#/Vol] 0.50 10*3/uL Normal 0.00-1.[address] [facility] Comment on above: Performed By: #### C DP, CP #### [facility] [address] [place] [address] Investment Advisor: Mike Forde MD Monocytes/100 WBC (Bld) 6 % Normal 4-[address] [facility] Comment on above: Performed By: #### C DP, CP #### [facility] [address] [place] [address] Investment Advisor: Mike Forde MD Neutrophil (Seg) 73 % Normal 47-75 [facility] Comment on above: Performed By: #### C DP, CP #### [facility] [address] [place] [address] Investment Advisor: Mike Forde MD Platelet mean volume (Bld) [Entitic vol] 10.4 fL Normal 6.0-12.0 [facility] Comment on above: Performed By: #### C DP, CP #### [facility] [address] [place], [place] [phone] Investment Advisor: Mike Forde MD Platelets (Bld) [#/Vol] 227 10*3/uL Normal 140-[address] [facility] Comment on above: Performed By: #### C DP, CP #### [facility] [address] [place], [place] [phone] Investment Advisor: Mike Forde MD RBC (Bld) [#/Vol] 4.96 10*6/uL Normal 4.00-5.[address] [facility] Comment on above: Performed By: #### C DP, CP #### [facility] [address] [place], [place] [phone] Investment Advisor: Mike Forde MD WBC (Bld) [#/Vol] 8.5 10*3/uL Normal 3.5-11.[address] [facility] Comment on above: Performed By: #### C DP, CP #### [facility] [address] [place], [place] [phone] Investment Advisor: Mike Forde MD Comp Metabolic Profon 2022 Albumin [Mass/Vol] 4.2 g/dL Normal 3.5-5.[address] [facility] Comment on above: Performed By: #### C DP, CP #### [facility] [address] [place], [place] [phone] Investment Advisor: Mike Forde MD Alkaline Phos 48 U/L Normal 35-104 [facility] Comment on above: Performed By: #### C DP, CP #### [facility] [address] [place], [place] [phone] Investment Advisor: Mike Forde MD ALT [Catalytic activity/Vol] 12 U/L Normal 5-[address] [facility] Comment on above: Performed By: #### C DP, CP #### [facility] [address] [place], [place] [phone] Investment Advisor: Mike Forde MD Anion gap [Moles/Vol] 15 mmol/L Normal 9-17 [facility] Comment on above: Performed By: #### C DP, CP #### [facility] [address] [place], [place] [phone] Investment Advisor: Mike Forde MD AST [Catalytic activity/Vol] 11 U/L Normal <[address] [facility] Comment on above: Performed By: #### C DP, CP #### [facility] [address] [place], [place] [phone] Investment Advisor: Mike Forde MD Bilirubin [Mass/Vol] mg/dL Low 0.3-1.2 [facility] Comment on above: Performed By: #### C DP, CP #### [facility] [address] [place], [place] [phone] Investment Advisor: Mike Forde MD BUN/CRE Ratio 14 Normal 9-20 [facility] Comment on above: Performed By: #### C DP, CP #### [facility] [address] [place], [place] [phone] Investment Advisor: Mike Forde MD Calcium [Mass/Vol] 9.7 mg/dL Normal 8.6-10.[address] [facility] Comment on above: Performed By: #### C DP, CP #### [facility] [address] [place], [place] [phone] Investment Advisor: Mike Forde MD Chloride [Moles/Vol] 101 mmol/L Normal 98-107 [facility] Comment on above: Performed By: #### C DP, CP #### [facility] [address] [place] [address] Investment Advisor: Mike Forde MD CO2 [Moles/Vol] 22 mmol/L Normal 20-31 [facility] Comment on above: Performed By: #### C DP, CP #### [facility] [address] [place], [place] [phone] Investment Advisor: Mike Forde MD Creatinine [Mass/Vol] 0.5 mg/dL Normal 0.5-0.9 [facility] Comment on above: Performed By: #### C DP, CP #### [facility] [address] [place] [address] Investment Advisor: Mike Forde MD GFR/1.73 sq M.predicted among non-blacks MDRD (S/P/Bld) [Vol rate/Area] mL/min/{1.73_m2} Normal >[address] [facility] Comment on above: Result Comment: These results [...] Performed By: #### C DP, CP #### [facility] [address] [place] [address] Investment Advisor: Mike Forde MD Glucose [Mass/Vol] 90 mg/dL Normal 70-[address] [facility] Comment on above: Performed By: #### C DP, CP #### [facility] [address] [place] [address] Investment Advisor: Mike Forde MD Potassium [Moles/Vol] 3.5 mmol/L Low 3.7-5.3 [facility] Comment on above: Performed By: #### C DP, CP #### [facility] [address] [place] [address] Investment Advisor: Mike Forde MD Protein [Mass/Vol] 7.5 g/dL Normal 6.4-8.[address] [facility] Comment on above: Performed By: #### C DP, CP #### [facility] [address] [place], [place] [phone] Investment Advisor: Mike Forde MD Sodium [Moles/Vol] 138 mmol/L Normal 135-[address] [facility] Comment on above: Performed By: #### C DP, CP #### [facility] [address] [place] [address] Investment Advisor: Mike Forde MD Urea nitrogen [Mass/Vol] 7 mg/dL Normal 6-[address] [facility] Comment on above: Performed By: #### C DP, CP #### [facility] [address] [place], [place] [phone] Investment Advisor: Mike Forde MD Basic Metabolic Profon 04-16 Anion gap [Moles/Vol] 15 mmol/L Normal 9-17 [facility] Comment on above: Performed By: #### C DP, BMP #### [facility] [address] [place], [place] [phone] Investment Advisor: Mike Forde MD BUN/CRE Ratio 10 Normal 9-20 [facility] Comment on above: Performed By: #### C DP, BMP #### [facility] [address] [place], [place] [phone] Investment Advisor: Mike Forde MD Calcium [Mass/Vol] 10.2 mg/dL Normal 8.6-10.[address] [facility] Comment on above: Performed By: #### C DP, BMP #### [facility] [address] [place], [place] [phone] Investment Advisor: Mike Forde MD Chloride [Moles/Vol] 98 mmol/L Normal 98-107 [facility] Comment on above: Performed By: #### C DP, BMP #### [facility] [address] [place], [place] [phone] Investment Advisor: Mike Forde MD CO2 [Moles/Vol] 22 mmol/L Normal 20-31 [facility] Comment on above: Performed By: #### C DP, BMP #### [facility] [address] [place] [address] Investment Advisor: Mike Forde MD Creatinine [Mass/Vol] 0.7 mg/dL Normal 0.5-0.9 [facility] Comment on above: Performed By: #### C DP, BMP #### [facility] [address] [place] [address] Investment Advisor: Mike Forde MD GFR/1.73 sq M.predicted among non-blacks MDRD (S/P/Bld) [Vol rate/Area] mL/min/{1.73_m2} Normal >[address] [facility] Comment on above: Result Comment: These results [...] Performed By: #### C DP, BMP #### [facility] [address] [place] [address] Investment Advisor: Mike Forde MD Glucose [Mass/Vol] 113 mg/dL High 70-[address] [facility] Comment on above: Performed By: #### C DP, BMP #### [facility] [address] [place] [address] Investment Advisor: Mike Forde MD Potassium [Moles/Vol] 3.4 mmol/L Low 3.7-5.3 [facility] Comment on above: Performed By: #### C DP, BMP #### [facility] [address] [place], [place] [phone] Investment Advisor: Mike Forde MD Sodium [Moles/Vol] 135 mmol/L Normal 135-[address] [facility] Comment on above: Performed By: #### C DP, BMP #### [facility] [address] [place], [place] [phone] Investment Advisor: Mike Forde MD Urea nitrogen [Mass/Vol] 7 mg/dL Normal 6-[address] [facility] Comment on above: Performed By: #### C DP, BMP #### [facility] [address] [place] [address] Investment Advisor: Mike Forde MD CBC with Diffon 04-16-2023 Abs. Basophil 0.03 k/uL Normal 0.00-0.20 [facility] Comment on above: Performed By: #### C DP, BMP #### [facility] [address] [place] [address] Investment Advisor: Mike Forde MD Abs.Imm.Granulocyte 0.02 k/uL Normal 0.00-0.[address] [facility] Comment on above: Performed By: #### C DP, BMP #### [facility] [address] [place], [place] [phone] Investment Advisor: Mike Forde MD Abs.Neutrophil (Seg) 7.51 k/uL High 2.5-7.0 [facility] Comment on above: Performed By: #### C DP, BMP #### [facility] [address] [place], [place] [phone] Investment Advisor: Mike Forde MD Basophils/100 WBC (Bld) 0 % Normal 0-[address] [facility] Comment on above: Performed By: #### C DP, BMP #### [facility] [address] [place] [address] Investment Advisor: Mike Forde MD Eosinophils (Bld) [#/Vol] 0.03 10*3/uL Normal 0.00-0.[address] [facility] Comment on above: Performed By: #### C DP, BMP #### [facility] [address] [place], [place] [phone] Investment Advisor: Mike Forde MD Eosinophils/100 WBC (Bld) 0 % Normal 0-[address] [facility] Comment on above: Performed By: #### C DP, BMP #### [facility] [address] [place], [place] [phone] Investment Advisor: Mike Forde MD Erythrocyte distribution width (RBC) [Ratio] 11.8 % Low 12.1-15.[address] [facility] Comment on above: Performed By: #### C DP, BMP #### [facility] [address] [place] [phone] Investment Advisor: Mike Forde MD Hematocrit (Bld) [Volume fraction] 43.4 % Normal 36.0-46.[address] [facility] Comment on above: Performed By: #### C DP, BMP #### [facility] [address] [place] [address] Investment Advisor: Mike Forde MD Hemoglobin (Bld) [Mass/Vol] 15.5 g/dL Normal 12.0-16.[address] [facility] Comment on above: Performed By: #### C DP, BMP #### [facility] [address] [place], [place] [phone] Investment Advisor: Mike Forde MD Immature granulocytes/100 WBC (Bld) 0 % Normal 0-[address] [facility] Comment on above: Performed By: #### C DP, BMP #### [facility] [address] [place] [address] Investment Advisor: Mike Forde MD Lymphocytes (Bld) [#/Vol] 2.33 10*3/uL Normal 1.00-4.[address] [facility] Comment on above: Performed By: #### C DP, BMP #### [facility] [address] [place] [phone] Investment Advisor: Mike Forde MD Lymphocytes/100 WBC (Bld) 22 % Normal 15-[address] [facility] Comment on above: Performed By: #### C DP, BMP #### [facility] [address] [place] [address] Investment Advisor: Mike Forde MD MCH (RBC) [Entitic mass] 28.9 pg Normal 26.0-34.[address] [facility] Comment on above: Performed By: #### C DP, BMP #### [facility] [address] [place] [address] Investment Advisor: Mike Forde MD MCHC (RBC) [Mass/Vol] 35.7 g/dL Normal 31.0-37.0 [facility] Comment on above: Performed By: #### C DP, BMP #### [facility] [address] [place] [address] Investment Advisor: Mike Forde MD MCV (RBC) [Entitic vol] 80.8 fL Normal 80.0-100.[address] [facility] Comment on above: Performed By: #### C DP, BMP #### [facility] [address] [place] [address] Investment Advisor: Mike Forde MD Monocytes (Bld) [#/Vol] 0.88 10*3/uL Normal 0.00-1.[address] [facility] Comment on above: Performed By: #### C DP, BMP #### [facility] [address] [place] [address] Investment Advisor: Mike Forde MD Monocytes/100 WBC (Bld) 8 % Normal 4-[address] [facility] Comment on above: Performed By: #### C DP, BMP #### [facility] [address] [place] [phone] Investment Advisor: Mike Forde MD Neutrophil (Seg) 70 % Normal 47-75 [facility] Comment on above: Performed By: #### C DP, BMP #### [facility] [address] [place] [address] [phone] Investment Advisor: Mike Forde MD Platelet mean volume (Bld) [Entitic vol] 10.5 fL Normal 6.0-12.0 [facility] Comment on above: Performed By: #### C DP, BMP #### [facility] [address] [place] [phone] Investment Advisor: Mike Forde MD Platelets (Bld) [#/Vol] 279 10*3/uL Normal 140-[address] [facility] Comment on above: Performed By: #### C DP, BMP #### [facility] [address] [place] [address] [phone] Investment Advisor: Mike Forde MD RBC (Bld) [#/Vol] 5.37 10*6/uL High 4.00-5.[address] [facility] Comment on above: Performed By: #### C DP, BMP #### [facility] [address] [place] [address] [phone]) Investment Advisor: Mike Forde MD WBC (Bld) [#/Vol] 10.8 10*3/uL Normal 3.5-11.[address] [facility] Comment on above: Performed By: #### C DP, BMP #### [facility] [address] [place] [phone] Investment Advisor: Mike Forde MD CBC with Auto Differentialon 12-13-2021 Absolute Eos # 0.00 [facility] Absolute Lymph # 1.90 [facility] Absolute Calhoun # 0.50 [facility] Basophils (Bld) [#/Vol] 0.00 10*3/uL [facility] Basophils/100 WBC (Bld) 0 % 0 - 2 % [facility] Differential Type YES [facility] Eosinophils/100 WBC (Bld) 0 % 0 - 5 % [facility] Hematocrit (Bld) [Volume fraction] 43.5 % 36 - 46 % [facility] Hemoglobin (Bld) [Mass/Vol] 14.6 g/dL 12.0 - 16.0 g/dL [facility] Lymphocytes/100 WBC (Bld) 21 % 15 - 40 % [facility] MCH (RBC) [Entitic mass] 28.9 pg 26 - 34 pg [facility] MCHC (RBC) [Mass/Vol] 33.5 g/dL 31 - 37 g/dL [facility] MCV (RBC) [Entitic vol] 86.2 fL 80 - 100 fL [facility] Monocytes/100 WBC (Bld) 5 % 4 - 8 % [facility] Platelet distribution width (Bld) [Ratio] 12.3 % 12.1 - 15.2 % [facility] Platelets (Bld) [#/Vol] 265 10*3/uL [facility] RBC (Bld) [#/Vol] 5.05 10*6/uL 4.0 - 5.2 m/uL B [facility] Segmented neutrophils/100 WBC (Bld) 74 % 47 - 75 % [facility] Segs Absolute 6.60 [facility] WBC (Bld) [#/Vol] 9.1 10*3/uL [facility] Comprehensive Metabolic Pane davi 12-13-2021 Albumin [Mass/Vol] 4.3 g/dL 3.5 - 5.2 g/dL [facility] ALP (Bld) [Catalytic activity/Vol] 77 U/L 35 - 104 U/L [facility] ALT [Catalytic activity/Vol] 23 U/L 5 - 33 U/L [facility] Anion gap [Moles/Vol] 11 mmol/L 9 - 17 mmol/L [facility] AST [Catalytic activity/Vol] 15 U/L <32 [facility] Bilirubin [Mass/Vol] 0.51 mg/dL 0.30 - 1.20 mg/dL [facility] Calcium [Mass/Vol] 9.6 mg/dL 8.6 - 10.4 mg/dL [facility] Chloride [Moles/Vol] 102 mmol/L 98 - 107 mmol/L [facility] CO2 [Moles/Vol] 25 mmol/L 20 - 31 mmol/L [facility] Creatinine [Mass/Vol] 0.77 mg/dL 0.50 - 0.90 mg/dL [facility] Free PSA/Total PSA [Mass fraction] 7.4 g/dL 6.4 - 8.3 g/dL [facility] GFR >60 >60 mL/min [facility] GFR Non- >60 >60 mL/min [facility] GFR/1.73 sq M.predicted MDRD (S/P/Bld) [Vol rate/Area] [facility] Comment on above: Average GFR for 20-2 9 years old: 116 mL/min/1.73sq m Chronic Kidney Disease: <60 mL/min/1.73sq m Kidney failure: <15 mL/min/1.73sq m eGFR calculated using average adult body mass. Additional eGFR calculator available at: http://www.[employer]multiple_crcl_2012.htm Glucose [Mass/Vol] 93 mg/dL 70 - 99 mg/dL [facility] Potassium [Moles/Vol] 4.2 mmol/L 3.7 - 5.3 mmol /L [facility] Sodium [Moles/Vol] 138 mmol/L 135 - 144 mmol/L [facility] Urea nitrogen (BldV) [Mass/Vol] 9 mg/dL 6 - 20 mg/dL [facility] Urea nitrogen/Creatinine (Bld) [Mass ratio] 12 [facility] Encounters Encounter Date Encounter Type Care Provider Facility Start: 08-09-2023 End: 08-09-2023 ambulatory NAHED SALINAS Not Available Start: 07-12-2023 End: 07-12-2023 ambulatory ALICIA CLANCY Not Available Start: 06-14-2023 End: 06-14-2023 ambulatory NAHED SALINAS Not Available Start: 05-30-2023 End: 05-31-2023 Emergency department patient visit TERRENCE WOLF [facility] Start: 04-16-2023 End: 04-17-2023 Emergency department patient visit ARPIT PAREKH [facility] Start: 12-13-2021 End: 12-13-2021 Subsequent hospital visit [...] DTaP/Tdap/Td vaccine (3 - Td or Tdap) [facility] Start: 12-13-2022 Depression Screen Depression Screen [facility] Start: 03-14-2022 COVID-19 Vaccine (3 - Booster for Pfizer series) COVID-19 Vaccine (3 - Booster for Pfizer series) [facility] Start: 03-10-2022 Influenza vaccination Flu vaccine (S aneglo Ended) [facility] Start: 01-11-2022 End: 01-11-2022 Patient encounter procedure 01/11/2022 Office Visit Family Medicine 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 APRN - CNP [address] [place] [address] [facility] Start: 2019 Screening for malign ant neoplasm of cervix Pap smear [facility] Start: 03-10-2019 Influenza vaccination Flu vaccine (# 1) [place], [place] Start: 2017 DTaP/Tdap/Td vaccine (1 - Tdap) DTaP/Tdap/Td vaccine (1 - Tdap) [place], [place] Start: 2016 Hepatitis C screening Hepatitis C sc reen [facility] Start: 2014 Chlamydia screen Chlamydia screen [place], [place] Start: 2014 Screening for Chlamy nathalie trachomatis Chlamydia screen [facility] Start: 2013 HIV screen HIV screen [place], [place] Start: 2013 HIV screening HIV screen [facility] Start: 2013 HPV vaccine (1 - Fem dana 3-dose series) HPV vaccine (1 - Female 3-dose series) [place], [place] Start: 2011 Varicella Vaccine (1 of 2 - 13+ 2-dose series) Varicella Vaccine (1 of 2 - 13+ 2-dose series) [place], [place] Start: 2009 HPV vaccine (1 - 2-d ose series) HPV vaccine (1 - 2-dose series) [facility] Start: 1999 Varicella vaccine (1 of 2 - 2-dose childhood series) Varicella vaccine (1 of 2 - 2-dose childhood series) [facility] End: 12-13-2021 CBC W Auto Differential panel - Blood CBC with Auto Differential Lab Routine Diarrhea, unspecified type Blood in stool, gustavo 1 Occurrences starting 12/13/2021 until 12/13/2021 [facility] [employer] Phone: Comment on above: 1 Occurrences starti ng 12/13/2021 until 12/13/2021 End: 12-13-2021 Celiac Disease Panel Celiac Disease Panel Lab Routine Diarrhea, unspecified type Abdominal cramping 1 Occurrences starting 12/13/2021 until 12/13/2021 [facility] [employer] Phone: Comment on above: 1 Occurrences starti ng 12/13/2021 until 12/13/2021 End: 12-13-2021 Celiac Plus [facility] [employer] Phone: Comment on above: Once for 1 Occurrenc es starting 12/13/2021 until 12/13/2021 End: 12-13-2021 Comprehensive metabolic 2000 panel - Serum or Plasma Comprehensive Metabolic Panel Lab Routine Blood in stool, gustavo Gastroesophageal reflux disease without esophagitis 1 Occurrences starting 12/13/2021 until 12/13/2021 [email or web address] Work Phone: Comment on above: 1 Occurrences starti ng 12/13/2021 until 12/13/2021 End: 03-01-2019 Varicella Zoster Antibody, IgG Varicella Zoster Antibody, IgG Lab Routine Need for varicella vaccine 1 Occurrences starting 03/01/2019 until 03/01/2019 [place], [place] Comment on above: 1 Occurrences starti ng 03/01/2019 until 03/01/2019 Varicella Zoster Antibody, IgG Varicella Zoster Antibody, IgG Lab Routine Need for varicella vaccine 03/01/2019 11:50 AM EDT [place], [place] Immunizations Immunization Date Immunization Notes Care Provider Rohit mcnally 09-18-2021 COVID-19, Pfizer Pur ple top, DILUTE for use, 12+ yrs, 30mcg/0.3mL dose 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 CHILD PSYCHOLOGIST - FICTION AND NONFICTION PROSE WRITER Work Phone: [email or web address] Work Phone: 11-27-2019 Hepatitis B vaccine (recombinant), CpG adjuvanted 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 CHILD PSYCHOLOGIST - FICTION AND NONFICTION PROSE WRITER Work Phone: [email or web address] Work Phone: 11-27-2019 tetanus toxoid, redu gordon diphtheria toxoid, and acellular pertussis vaccine, adsorbed 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 CHILD PSYCHOLOGIST - FICTION AND NONFICTION PROSE WRITER Work Phone: [email or web address] Work Phone: 03-27-2019 hepatitis B vaccine, adult dosage 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 CHILD PSYCHOLOGIST - FICTION AND NONFICTION PROSE WRITER Work Phone: [email or web address] Work Phone: 03-27-2019 measles, mumps and rubella virus vaccine 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 CHILD PSYCHOLOGIST - FICTION AND NONFICTION PROSE WRITER Work Phone: [facility] [employer] Work Phone: 03-03-2019 measles, mumps and rubella virus vaccine 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 CHILD PSYCHOLOGIST - [facility] Work Phone: [facility] [employer] Work Phone: 02-25-2019 hepatitis B vaccine, adult dosage 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 [facility] [employer] Payers Date Payer Category Payer Unknown [id number] 2022 Private Health Insurance [id number] 2018 Unknown BCBS [place] P PO xxxxxxxxxxxx 2018-Present [address] [place] [address] xxxxxxxxxxxx [id number] 2018 Unknown [id number] 1998 Unknown [id number] 1998 Unknown [id number] 1998 Unknown [id number] 1998 Unknown [id number] 1998 Unknown [id number] Social History Date Type Detail Facility Start: 04-25-2016 End: 11-26-2018 Tobacco smoking status NHIS Never smoker [place], [place] Start: 11-26-2018 Alcohol intake No Rachel [place], [place] Start: 1998 Sex Assigned At Not on file [address], [place] Start: 04-25-2016 Tobacco use and exposure Smokeless tobacco non-user [employer] Phone: Start: 12-13-2021 Alcohol intake Current non-dr manager document control of alcohol (finding) [employer] Phone: Start: 12-13-2021 History SDOH Financial 5 [employer] Phone: Start: 12-13-2021 History 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 1 [employer] Phone: Evaluation note Note Date & Type Note Facility Evaluation note Diagnosis Blood in stool, gustavo Blood in stool Gastroesophageal reflux disease without esophagitis Esophageal reflux Diarrhea, unspecified type Abdominal cramping Abdominal pain, unspecified site documented in this encounter [employer] Phone: Assessments Diagnosis Need for varicella vaccine Need for prophylactic vaccination and inoculation against varicella Advance Directives No Advanced Directives Records FoundDocuments on File Type Date Recorded Patient Chief Steward/Stewardess Expl anation Advance Directives and Living Will Power of [place] Diver Documents on File Type Date Recorded Patient Chief Steward/Stewardess Expl anation ACP-Advance Directive ACP-Power of [place] Diver Summary Purpose Family History No Family History Records FoundNo Family History Records Found Additional Source Comments Care Teams (unrecognized sec tion and content) Shirt Folder Relationship Specialty Start Date End Date 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, CHILD PSYCHOLOGIST - FICTION AND NONFICTION PROSE WRITER [address] [place] [id number] PCP - General Nurse Practitioner 11/23/16 INFORMATION SOURCE (unrecogn ized section and content) DATE CREATED AUTHOR 06/02/2023 Rachel allen DATE CREATED AUTHOR AUTHOR'S ORGANIZ ATION 08/10/2023 [facility] FOR RECORDS PERTAINING TO PATIENTS WHO [...] BE BASED ON THE PRIMARY CLINICAL RECORDS. [email or web address] provides no warranty or guarantee of the accuracy or completeness of information in this document.
== END 2023-08-15 08:24 | disposition home or self-care (01) ==
LOC: NOMS 08:23
PROVIDERS: Visit Provider Obstetrics & Gynecology
DX: Z34.92 Encounter for supervision of normal pregnancy, unspecified, second trimester (principal); Z3A.25 25 weeks gestation of pregnancy
CPT/HCPCS: 76815

== ENCOUNTER 2023-08-28 08:21 | Outpatient (OUT) | payer BC, OTHER, SELFPAY ==
--- OUTSIDE RECORDS SUMMARY | 2023-08-28 08:26 | XMS_ITS | CCD ---
Author Name Unknown Address [address] [place] [address] Organization [facility] Care Team Providers Care Humid System Operator Name Role Phone 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 Primary [facility] [...] 05-30-2023 Abs. Basophil 0.01 k/uL Normal 0.00-0.20 [facility] Comment on above: Performed By: #### C DP, CP #### [facility] [address] [place] [address] Linux Programmer: Mike Forde MD Abs.Imm.Granulocyte 0.01 k/uL Normal 0.00-0.30 [facility] Comment on above: Performed By: #### C DP, CP #### [facility] [address] [place] [address] Linux Programmer: Mike Forde MD Abs.Neutrophil (Seg) 6.24 k/uL Normal 2.5-7.0 [facility] Comment on above: Performed By: #### C DP, CP #### [facility] [address] [place] [address] Linux Programmer: Mike Forde MD Basophils/100 WBC (Bld) 0 % Normal 0-2 [facility] Comment on above: Performed By: #### C DP, CP #### [facility] [address] [place] [address] Linux Programmer: Mike Forde MD Eosinophils (Bld) [#/Vol] 0.00 10*3/uL Normal 0.00-0.40 [facility] Comment on above: Performed By: #### C DP, CP #### [facility] [address] [place] [address] Linux Programmer: Mike Forde MD Eosinophils/100 WBC (Bld) 0 % Normal 0-5 [facility] Comment on above: Performed By: #### C DP, CP #### [facility] [address] [place] [address] Linux Programmer: Mike Forde MD Erythrocyte distribution width (RBC) [Ratio] 11.9 % Low 12.1-15.2 [facility] Comment on above: Performed By: #### C DP, CP #### [facility] [address] [place] [id number] Linux Programmer: Mike Forde MD Hematocrit (Bld) [Volume fraction] 41.1 % Normal 36.0-46.0 [facility] Comment on above: Performed By: #### C DP, CP #### [facility] [address] [place] [id number] Linux Programmer: Mike Forde MD Hemoglobin (Bld) [Mass/Vol] 14.5 g/dL Normal 12.0-16.0 [facility] Comment on above: Performed By: #### C DP, CP #### [facility] [address] [place] [address] Linux Programmer: Mike Forde MD Immature granulocytes/100 WBC (Bld) 0 % Normal 0-5 [facility] Comment on above: Performed By: #### C DP, CP #### [facility] [address] [place] [id number] Linux Programmer: Mike Forde MD Lymphocytes (Bld) [#/Vol] 1.74 10*3/uL Normal 1.00-4.80 [facility] Comment on above: Performed By: #### C DP, CP #### [facility] [address] [place] [address] Linux Programmer: Mike Forde MD Lymphocytes/100 WBC (Bld) 21 % Normal 15-40 [facility] Comment on above: Performed By: #### C DP, CP #### [facility] [address] [place] [address] Linux Programmer: Mike Forde MD MCH (RBC) [Entitic mass] 29.2 pg Normal 26.0-34.0 [facility] Comment on above: Performed By: #### C DP, CP #### [facility] [address] [place] [address] Linux Programmer: Mike Forde MD MCHC (RBC) [Mass/Vol] 35.3 g/dL Normal 31.0-37.0 [facility] Comment on above: Performed By: #### C DP, CP #### [facility] [address] [place] [address] Linux Programmer: Mike Forde MD MCV (RBC) [Entitic vol] 82.9 fL Normal 80.0-100.0 [facility] Comment on above: Performed By: #### C DP, CP #### [facility] [address] [place] [id number] Linux Programmer: Mike Forde MD Monocytes (Bld) [#/Vol] 0.50 10*3/uL Normal 0.00-1.00 [facility] Comment on above: Performed By: #### C DP, CP #### [facility] [address] [place] [address] Linux Programmer: Mike Forde MD Monocytes/100 WBC (Bld) 6 % Normal 4-8 [facility] Comment on above: Performed By: #### C DP, CP #### [facility] [address] [place] [address] Linux Programmer: Mike Forde MD Neutrophil (Seg) 73 % Normal 47-75 [facility] Comment on above: Performed By: #### C DP, CP #### [facility] [address] [place] [address] Linux Programmer: Mike Forde MD Platelet mean volume (Bld) [Entitic vol] 10.4 fL Normal 6.0-12.0 [facility] Comment on above: Performed By: #### C DP, CP #### [facility] [address] [place], [place] [phone] Linux Programmer: Mike Forde MD Platelets (Bld) [#/Vol] 227 10*3/uL Normal 140-450 [facility] Comment on above: Performed By: #### C DP, CP #### [facility] [address] [place], [place] [phone] ([phone]) Linux Programmer: Mike Forde MD RBC (Bld) [#/Vol] 4.96 10*6/uL Normal 4.00-5.20 [facility] Comment on above: Performed By: #### C DP, CP #### [facility] [address] [place], [place] [phone] Linux Programmer: Mike Forde MD WBC (Bld) [#/Vol] 8.5 10*3/uL Normal 3.5-11.0 [facility] Comment on above: Performed By: #### C DP, CP #### [facility] [address] [place], [place] [phone] Linux Programmer: Mike Forde MD Comp Metabolic Profon 2022 Albumin [Mass/Vol] 4.2 g/dL Normal 3.5-5.2 [facility] Comment on above: Performed By: #### C DP, CP #### [facility] [address] [place], [place] [phone] [phone] Linux Programmer: Mike Forde MD Alkaline Phos 48 U/L Normal 35-104 [facility] Comment on above: Performed By: #### C DP, CP #### [facility] [address] [place], [place] [phone] Linux Programmer: Mike Forde MD ALT [Catalytic activity/Vol] 12 U/L Normal 5-33 [facility] Comment on above: Performed By: #### C DP, CP #### [facility] [address] [place], [place] [phone] Linux Programmer: Mike Forde MD Anion gap [Moles/Vol] 15 mmol/L Normal 9-17 [facility] Comment on above: Performed By: #### C DP, CP #### [facility] [address] [place], [place] [phone] Linux Programmer: Mike Forde MD AST [Catalytic activity/Vol] 11 U/L Normal <32 [facility] Comment on above: Performed By: #### C DP, CP #### [facility] [address] [place], [place] [id number] Linux Programmer: Mike Forde MD Bilirubin [Mass/Vol] mg/dL Low 0.3-1.2 [facility] Comment on above: Performed By: #### C DP, CP #### [facility] [address] [place], [place] [phone] Linux Programmer: Mike Forde MD BUN/CRE Ratio 14 Normal 9-20 [facility] Comment on above: Performed By: #### C DP, CP #### [facility] [address] [place], [place] [phone] Linux Programmer: Mike Forde MD Calcium [Mass/Vol] 9.7 mg/dL Normal 8.6-10.4 [facility] Comment on above: Performed By: #### C DP, CP #### [facility] [address] [place], [place] [phone] Linux Programmer: Mike Forde MD Chloride [Moles/Vol] 101 mmol/L Normal 98-107 [facility] Comment on above: Performed By: #### C DP, CP #### [facility] [address] [place] [address] Linux Programmer: Mike Forde MD CO2 [Moles/Vol] 22 mmol/L Normal 20-31 [facility] Comment on above: Performed By: #### C DP, CP #### [facility] [address] [place], [place] [phone] Linux Programmer: Mike Forde MD Creatinine [Mass/Vol] 0.5 mg/dL Normal 0.5-0.9 [facility] Comment on above: Performed By: #### C DP, CP #### [facility] [address] [place] [address] Linux Programmer: Mike Forde MD GFR/1.73 sq M.predicted among non-blacks MDRD (S/P/Bld) [Vol rate/Area] mL/min/{1.73_m2} Normal >60 [facility] Comment on above: Result Comment: These [...] Performed By: #### C DP, CP #### [facility] [address] [place] [address] Linux Programmer: Mike Forde MD Glucose [Mass/Vol] 90 mg/dL Normal 70-99 [facility] Comment on above: Performed By: #### C DP, CP #### [facility] [address] [place] [address] Linux Programmer: Mike Forde MD Potassium [Moles/Vol] 3.5 mmol/L Low 3.7-5.3 [facility] Comment on above: Performed By: #### C DP, CP #### [facility] [address] [place] [address] Linux Programmer: Mike Forde MD Protein [Mass/Vol] 7.5 g/dL Normal 6.4-8.3 [facility] Comment on above: Performed By: #### C DP, CP #### [facility] [address] [place], [place] [phone] Linux Programmer: Mike Forde MD Sodium [Moles/Vol] 138 mmol/L Normal 135-144 [facility] Comment on above: Performed By: #### C DP, CP #### [facility] [address] [place] [address] Linux Programmer: Mike Forde MD Urea nitrogen [Mass/Vol] 7 mg/dL Normal 6-20 [facility] Comment on above: Performed By: #### C DP, CP #### [facility] [address] [place], [place] [phone] Linux Programmer: Mike Forde MD Basic Metabolic Profon 04-16 Anion gap [Moles/Vol] 15 mmol/L Normal 9-17 [facility] Comment on above: Performed By: #### C DP, BMP #### [facility] [address] [place], [place] [phone] Linux Programmer: Mike Forde MD BUN/CRE Ratio 10 Normal 9-20 [facility] Comment on above: Performed By: #### C DP, BMP #### [facility] [address] [place], [place] [phone] Linux Programmer: Mike Forde MD Calcium [Mass/Vol] 10.2 mg/dL Normal 8.6-10.4 [facility] Comment on above: Performed By: #### C DP, BMP #### [facility] [address] [place], [place] [phone] Linux Programmer: Mike Forde MD Chloride [Moles/Vol] 98 mmol/L Normal 98-107 [facility] Comment on above: Performed By: #### C DP, BMP #### [facility] [address] [place], [place] [phone] Linux Programmer: Mike Forde MD CO2 [Moles/Vol] 22 mmol/L Normal 20-31 [facility] Comment on above: Performed By: #### C DP, BMP #### [facility] [address] [place] [address] Linux Programmer: Mike Forde MD Creatinine [Mass/Vol] 0.7 mg/dL Normal 0.5-0.9 [facility] Comment on above: Performed By: #### C DP, BMP #### [facility] [address] [place] [address] Linux Programmer: Mike Forde MD GFR/1.73 sq M.predicted among non-blacks MDRD (S/P/Bld) [Vol rate/Area] mL/min/{1.73_m2} Normal >60 [facility] Comment on above: Result Comment: These [...] Performed By: #### C DP, BMP #### [facility] [address] [place] [address] Linux Programmer: Mike Forde MD Glucose [Mass/Vol] 113 mg/dL High 70-99 [facility] Comment on above: Performed By: #### C DP, BMP #### [facility] [address] [place] [address] Linux Programmer: Mike Forde MD Potassium [Moles/Vol] 3.4 mmol/L Low 3.7-5.3 [facility] Comment on above: Performed By: #### C DP, BMP #### [facility] [address] [place], [place] [phone] Linux Programmer: Mike Forde MD Sodium [Moles/Vol] 135 mmol/L Normal 135-144 [facility] Comment on above: Performed By: #### C DP, BMP #### [facility] [address] [place], [place] [phone] Linux Programmer: Mike Forde MD Urea nitrogen [Mass/Vol] 7 mg/dL Normal 6-20 [facility] Comment on above: Performed By: #### C DP, BMP #### [facility] [address] [place] [address] Linux Programmer: Mike Forde MD CBC with Diffon 04-16-2023 Abs. Basophil 0.03 k/uL Normal 0.00-0.20 [facility] Comment on above: Performed By: #### C DP, BMP #### [facility] [address] [place] [address] Linux Programmer: Mike Forde MD Abs.Imm.Granulocyte 0.02 k/uL Normal 0.00-0.30 [facility] Comment on above: Performed By: #### C DP, BMP #### [facility] [address] [place], [place] [phone] Linux Programmer: Mike Forde MD Abs.Neutrophil (Seg) 7.51 k/uL High 2.5-7.0 [facility] Comment on above: Performed By: #### C DP, BMP #### [facility] [address] [place], [place] [phone] Linux Programmer: Mike Forde MD Basophils/100 WBC (Bld) 0 % Normal 0-2 [facility] Comment on above: Performed By: #### C DP, BMP #### [facility] [address] [place] [address] Linux Programmer: Mkie Forde MD Eosinophils (Bld) [#/Vol] 0.03 10*3/uL Normal 0.00-0.40 [facility] Comment on above: Performed By: #### C DP, BMP #### [facility] [address] [place], [place] [phone] Linux Programmer: Mike Forde MD Eosinophils/100 WBC (Bld) 0 % Normal 0-5 [facility] Comment on above: Performed By: #### C DP, BMP #### [facility] [address] [place], [place] [phone] Linux Programmer: Mike Forde MD Erythrocyte distribution width (RBC) [Ratio] 11.8 % Low 12.1-15.2 [facility] Comment on above: Performed By: #### C DP, BMP #### [facility] [address] [place] [phone] Linux Programmer: Mike Forde MD Hematocrit (Bld) [Volume fraction] 43.4 % Normal 36.0-46.0 [facility] Comment on above: Performed By: #### C DP, BMP #### [facility] [address] [place] [address] Linux Programmer: Mike Forde MD Hemoglobin (Bld) [Mass/Vol] 15.5 g/dL Normal 12.0-16.0 [facility] Comment on above: Performed By: #### C DP, BMP #### [facility] [address] [place], [place] [phone] Linux Programmer: Mike Forde MD Immature granulocytes/100 WBC (Bld) 0 % Normal 0-5 [facility] Comment on above: Performed By: #### C DP, BMP #### [facility] [address] [place] [address] Linux Programmer: Mike Forde MD Lymphocytes (Bld) [#/Vol] 2.33 10*3/uL Normal 1.00-4.80 [facility] Comment on above: Performed By: #### C DP, BMP #### [facility] [address] [place] [phone] Linux Programmer: Mike Forde MD Lymphocytes/100 WBC (Bld) 22 % Normal 15-40 [facility] Comment on above: Performed By: #### C DP, BMP #### [facility] [address] [place] [address] Linux Programmer: Mike Forde MD MCH (RBC) [Entitic mass] 28.9 pg Normal 26.0-34.0 [facility] Comment on above: Performed By: #### C DP, BMP #### [facility] [address] [place] [address] Linux Programmer: Mike Forde MD MCHC (RBC) [Mass/Vol] 35.7 g/dL Normal 31.0-37.0 [facility] Comment on above: Performed By: #### C DP, BMP #### [facility] [address] [place] [address] Linux Programmer: Mike Forde MD MCV (RBC) [Entitic vol] 80.8 fL Normal 80.0-100.0 [facility] Comment on above: Performed By: #### C DP, BMP #### [facility] [address] [place] [address] Linux Programmer: Mike Forde MD Monocytes (Bld) [#/Vol] 0.88 10*3/uL Normal 0.00-1.00 [facility] Comment on above: Performed By: #### C DP, BMP #### [facility] [address] [place] [address] Linux Programmer: Mike Forde MD Monocytes/100 WBC (Bld) 8 % Normal 4-8 [facility] Comment on above: Performed By: #### C DP, BMP #### [facility] [address] [place] [phone] Linux Programmer: Mike Forde MD Neutrophil (Seg) 70 % Normal 47-75 [facility] Comment on above: Performed By: #### C DP, BMP #### [facility] [address] [place] [address] (222) Linux Programmer: Mike Forde MD Platelet mean volume (Bld) [Entitic vol] 10.5 fL Normal 6.0-12.0 [facility] Comment on above: Performed By: #### C DP, BMP #### [facility] [address] [place] [address] (311) Linux Programmer: Mike Forde MD Platelets (Bld) [#/Vol] 279 10*3/uL Normal 140-450 [facility] Comment on above: Performed By: #### C DP, BMP #### [facility] [address] [place] [address] (304) Linux Programmer: Mike Forde MD RBC (Bld) [#/Vol] 5.37 10*6/uL High 4.00-5.20 [facility] Comment on above: Performed By: #### C DP, BMP #### [facility] [address] [place] [address] (956) Linux Programmer: Mike Forde MD WBC (Bld) [#/Vol] 10.8 10*3/uL Normal 3.5-11.0 [facility] Comment on above: Performed By: #### C DP, BMP #### [facility] [address] [place] [address] [phone] Linux Programmer: Mike Forde MD CBC with Auto Differentialon 12-13-2021 Absolute Eos # 0.00 [facility] Absolute Lymph # 1.90 [facility] Absolute Barbour # 0.50 [facility] Basophils (Bld) [#/Vol] 0.00 10*3/uL [facility] Basophils/100 WBC (Bld) 0 % 0 - 2 % [facility] Differential Type YES [facility] Eosinophils/100 WBC (Bld) 0 % 0 - 5 % [facility] Hematocrit (Bld) [Volume fraction] 43.5 % 36 - 46 % [facility] Hemoglobin (Bld) [Mass/Vol] 14.6 g/dL 12.0 - 16.0 g/dL [facility] Lymphocytes/100 WBC (Bld) 21 % 15 - 40 % [facility] MCH (RBC) [Entitic mass] 28.9 pg 26 - 34 pg [facility] MCHC (RBC) [Mass/Vol] 33.5 g/dL 31 - 37 g/dL [facility] MCV (RBC) [Entitic vol] 86.2 fL 80 - 100 fL [facility] Monocytes/100 WBC (Bld) 5 % 4 - 8 % [facility] Platelet distribution width (Bld) [Ratio] 12.3 % 12.1 - 15.2 % [facility] Platelets (Bld) [#/Vol] 265 10*3/uL [facility] RBC (Bld) [#/Vol] 5.05 10*6/uL 4.0 - 5.2 m/uL [facility] Segmented neutrophils/100 WBC (Bld) 74 % 47 - 75 % [facility] Segs Absolute 6.60 [facility] WBC (Bld) [#/Vol] 9.1 10*3/uL [facility] Comprehensive Metabolic Pane davi 12-13-2021 Albumin [Mass/Vol] 4.3 g/dL 3.5 - 5.2 g/dL [facility] ALP (Bld) [Catalytic activity/Vol] 77 U/L 35 - 104 U/L [facility] ALT [Catalytic activity/Vol] 23 U/L 5 - 33 U/L [facility] Anion gap [Moles/Vol] 11 mmol/L 9 - 17 mmol/L [facility] AST [Catalytic activity/Vol] 15 U/L <32 [facility] Bilirubin [Mass/Vol] 0.51 mg/dL 0.30 - 1.20 mg/dL [facility] Calcium [Mass/Vol] 9.6 mg/dL 8.6 - 10.4 mg/dL [facility] Chloride [Moles/Vol] 102 mmol/L 98 - 107 mmol/L [facility] CO2 [Moles/Vol] 25 mmol/L 20 - 31 mmol/L [facility] Creatinine [Mass/Vol] 0.77 mg/dL 0.50 - 0.90 mg/dL [facility] Free PSA/Total PSA [Mass fraction] 7.4 g/dL 6.4 - 8.3 g/dL [facility] GFR >60 >60 mL/min [facility] GFR Non- >60 >60 mL/min [facility] GFR/1.73 sq M.predicted MDRD (S/P/Bld) [Vol rate/Area] [facility] Comment on above: Average GFR for 20-2 9 years old: 116 mL/min/1.73sq m Chronic Kidney Disease: <60 mL/min/1.73sq m Kidney failure: <15 mL/min/1.73sq m eGFR calculated using average adult body mass. Additional eGFR calculator available at: http://www.[employer].PeopLease/multiple_crcl_2012.htm Glucose [Mass/Vol] 93 mg/dL 70 - 99 mg/dL [facility] Potassium [Moles/Vol] 4.2 mmol/L 3.7 - 5.3 mmol /L [facility] Sodium [Moles/Vol] 138 mmol/L 135 - 144 mmol/L [facility] Urea nitrogen (BldV) [Mass/Vol] 9 mg/dL 6 - 20 mg/dL [facility] Urea nitrogen/Creatinine (Bld) [Mass ratio] 12 [facility] Encounters Encounter Date Encounter Type Care Provider Facility Start: 08-09-2023 End: 08-09-2023 ambulatory NAHED SALINAS Not Available Start: 07-12-2023 End: 07-12-2023 ambulatory ALICIA CLANCY Not Available Start: 06-14-2023 End: 06-14-2023 ambulatory NAHED SALINAS Not Available Start: 05-30-2023 End: 05-31-2023 Emergency department patient visit TERRENCE WOLF [facility] Start: 04-16-2023 End: 04-17-2023 Emergency department patient visit ARPIT PAREKH [facility] Start: 12-13-2021 End: 12-13-2021 Subsequent hospital [...] DTaP/Tdap/Td vaccine (3 - Td or Tdap) [facility] Start: 12-13-2022 Depression Screen Depression Screen [facility] Start: 03-14-2022 COVID-19 Vaccine (3 - Booster for Pfizer series) COVID-19 Vaccine (3 - Booster for Pfizer series) [facility] Start: 03-10-2022 Influenza vaccination Flu vaccine (S angelo Ended) [facility] Start: 01-11-2022 End: 01-11-2022 Patient encounter procedure 01/11/2022 Office Visit Family Medicine 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 APRN - CNP [address] [place] [address] [facility] Start: 2019 Screening for malign ant neoplasm of cervix Pap smear [facility] Start: 03-10-2019 Influenza vaccination Flu vaccine (# 1) [place], [place] Start: 2017 DTaP/Tdap/Td vaccine (1 - Tdap) DTaP/Tdap/Td vaccine (1 - Tdap) [place], [place] Start: 2016 Hepatitis C screening Hepatitis C sc reen [facility] Start: 2014 Chlamydia screen Chlamydia screen [place], [place] Start: 2014 Screening for Chlamy nathalie trachomatis Chlamydia screen [facility] Start: 2013 HIV screen HIV screen [place], [place] Start: 2013 HIV screening HIV screen [facility] Start: 2013 HPV vaccine (1 - Fem dana 3-dose series) HPV vaccine (1 - Female 3-dose series) [place], [place] Start: 2011 Varicella Vaccine (1 of 2 - 13+ 2-dose series) Varicella Vaccine (1 of 2 - 13+ 2-dose series) [place], [place] Start: 2009 HPV vaccine (1 - 2-d ose series) HPV vaccine (1 - 2-dose series) [facility] Start: 1999 Varicella vaccine (1 of 2 - 2-dose childhood series) Varicella vaccine (1 of 2 - 2-dose childhood series) [facility] End: 12-13-2021 CBC W Auto Differential panel - Blood CBC with Auto Differential Lab Routine Diarrhea, unspecified type Blood in stool, gustavo 1 Occurrences starting 12/13/2021 until 12/13/2021 [facility] [employer] Phone: Comment on above: 1 Occurrences starti ng 12/13/2021 until 12/13/2021 End: 12-13-2021 Celiac Disease Panel Celiac Disease Panel Lab Routine Diarrhea, unspecified type Abdominal cramping 1 Occurrences starting 12/13/2021 until 12/13/2021 [facility] [employer] Phone: Comment on above: 1 Occurrences starti ng 12/13/2021 until 12/13/2021 End: 12-13-2021 Celiac Plus [facility] [employer] Phone: Comment on above: Once for 1 Occurrenc es starting 12/13/2021 until 12/13/2021 End: 12-13-2021 Comprehensive metabolic 2000 panel - Serum or Plasma Comprehensive Metabolic Panel Lab Routine Blood in stool, gustavo Gastroesophageal reflux disease without esophagitis 1 Occurrences starting 12/13/2021 until 12/13/2021 [employer] Work Phone: Comment on above: 1 Occurrences starti ng 12/13/2021 until 12/13/2021 End: 03-01-2019 Varicella Zoster Antibody, IgG Varicella Zoster Antibody, IgG Lab Routine Need for varicella vaccine 1 Occurrences starting 03/01/2019 until 03/01/2019 [place], [place] Comment on above: 1 Occurrences starti ng 03/01/2019 until 03/01/2019 Varicella Zoster Antibody, IgG Varicella Zoster Antibody, IgG Lab Routine Need for varicella vaccine 03/01/2019 11:50 AM EDT [place], [place] Immunizations Immunization Date Immunization Notes Care Provider Rohit mcnally 09-18-2021 COVID-19, Pfizer Pur ple top, DILUTE for use, 12+ yrs, 30mcg/0.3mL dose 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 LEAD SECTION SUPERVISOR - PRODUCTION SUPPORT ANALYST Work Phone: [employer] Work Phone: 11-27-2019 Hepatitis B vaccine (recombinant), CpG adjuvanted 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 LEAD SECTION SUPERVISOR - PRODUCTION SUPPORT ANALYST Work Phone: [employer] Work Phone: 11-27-2019 tetanus toxoid, redu gordon diphtheria toxoid, and acellular pertussis vaccine, adsorbed 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 LEAD SECTION SUPERVISOR - PRODUCTION SUPPORT ANALYST Work Phone: [employer] Work Phone: 03-27-2019 hepatitis B vaccine, adult dosage 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 LEAD SECTION SUPERVISOR - PRODUCTION SUPPORT ANALYST Work Phone: [employer] Work Phone: 03-27-2019 measles, mumps and rubella virus vaccine 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 LEAD SECTION SUPERVISOR - PRODUCTION SUPPORT ANALYST Work Phone: [facility] [employer] Work Phone: 03-03-2019 measles, mumps and rubella virus vaccine 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 LEAD SECTION SUPERVISOR - [facility] Work Phone: [facility] [employer] Work Phone: 02-25-2019 hepatitis B vaccine, adult dosage 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 [facility] [employer] Payers Date Payer Category Payer Unknown [id number] 2022 Private Health Insurance [id number] 2018 Unknown BCBS [place] P PO xxxxxxxxxxxx 2018-Present [address] [place] [address] xxxxxxxxxxxx [id number] 2018 Unknown [id number] 1998 Unknown [id number] 1998 Unknown [id number] 1998 Unknown [id number] 1998 Unknown [id number] 1998 Unknown [id number] Social History Date Type Detail Facility Start: 04-25-2016 End: 11-26-2018 Tobacco smoking status NHIS Never smoker [place], [place] Start: 11-26-2018 Alcohol intake No Rachel [place], [place] Start: 1998 Sex Assigned At Not on file M [place], [place] Start: 04-25-2016 Tobacco use and exposure Smokeless tobacco non-user [facility] Phone: Start: 12-13-2021 Alcohol intake Current non-dr inventory clerk of alcohol (finding) [facility] Phone: Start: 12-13-2021 History SDOH Financial 5 [facility] Phone: Start: 12-13-2021 History 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 1 [facility] Phone: Evaluation note Note Date & Type Note Facility Evaluation note Diagnosis Blood in stool, gustavo Blood in stool Gastroesophageal reflux disease without esophagitis Esophageal reflux Diarrhea, unspecified type Abdominal cramping Abdominal pain, unspecified site documented in this encounter [facility] Phone: Assessments Diagnosis Need for varicella vaccine Need for prophylactic vaccination and inoculation against varicella Advance Directives No Advanced Directives Records FoundDocuments on File Type Date Recorded Patient Bill Cutter Expl anation Advance Directives and Living Will Power of Global [employer] Documents on File Type Date Recorded Patient Bill Cutter Expl anation ACP-Advance Directive ACP-Power of [employer] Summary Purpose Family History No Family History Records FoundNo Family History Records Found Additional Source Comments Care Teams (unrecognized sec tion and content) Humid System Operator Relationship Specialty Start Date End Date 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, LEAD SECTION SUPERVISOR - PRODUCTION SUPPORT ANALYST [address] [place] [address] PCP - General Nurse Practitioner 11/23/16 INFORMATION SOURCE (unrecogn ized section and content) DATE CREATED AUTHOR 06/02/2023 Rachel allen DATE CREATED AUTHOR AUTHOR'S ORGANIZ ATION 08/15/2023 [facility] FOR RECORDS PERTAINING TO PATIENTS WHO [...] BE BASED ON THE PRIMARY CLINICAL RECORDS. [email or web address] provides no warranty or guarantee of the accuracy or completeness of information in this document.
[2023-08-28 09:57] LABS: Basophils Percent Auto 0.3 % (0.2-2.0); Hematocrit 32.9 % (36.0-48.0); Immature Granulocytes Abs Auto 0.08 10^3/uL (0.00-0.03); Immature Granulocytes Pct Auto 0.7 % (0.0-0.5); Lymphocytes Percent Auto 17.2 % (20.5-60.0); Mean Corpuscular HGB Conc 33.4 g/dL (29.9-35.2); Mean Corpuscular Hemoglobin 30.1 pg (26.7-34.0); Mean Corpuscular Volume 90.1 fL (81.0-99.0); Mean Platelet Volume 10.5 fL (9.5-13.5); Monocytes Absolute Auto 0.6 10^3/uL (0.3-0.8); Monocytes Percent Auto 4.8 % (1.7-12.0); Neutrophils Absolute Auto 8.8 10^3/uL (1.4-6.5); Platelet Count 230 10^3/uL (150-450); Red Blood Count 3.65 10^6/uL (4.20-5.40); Red Cell Distribution Width 12.5 % (11.0-15.0); White Blood Count 11.4 10^3/uL (4.0-11.0)
[2023-08-28 10:09] LABS: Glucose 1 Hour 141 mg/dL (<130)
== END 2023-08-28 08:22 | disposition home or self-care (01) ==
LOC: LAB 08:24
PROVIDERS: Visit Provider Physician Assistant
DX: Z13.1 Encounter for screening for diabetes mellitus (principal)
CPT/HCPCS: 36415; 82950; 85025

== ENCOUNTER 2023-09-08 07:05 | Outpatient (OUT) | payer BC, OTHER, SELFPAY ==
--- OUTSIDE RECORDS SUMMARY | 2023-09-08 07:09 | XMS_ITS | CCD ---
Author Name Unknown Address [address] [place] [address] Organization [facility] Care Team Providers Care Insurance Collector Name Role Phone 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 Primary [facility] [...] 05-30-2023 Abs. Basophil 0.01 k/uL Normal 0.00-0.20 [facility] Comment on above: Performed By: #### C DP, CP #### [facility] [address] [place] [address] [employer] Classifier: Mike Forde MD Abs.Imm.Granulocyte 0.01 k/uL Normal 0.00-0.30 [facility] Comment on above: Performed By: #### C DP, CP #### [facility] [address] [place] [address] [employer] Classifier: Mike Forde MD Abs.Neutrophil (Seg) 6.24 k/uL Normal 2.5-7.0 [facility] Comment on above: Performed By: #### C DP, CP #### [facility] [address] [place] [address] [employer] Classifier: Mike Forde MD Basophils/100 WBC (Bld) 0 % Normal 0-2 [facility] Comment on above: Performed By: #### C DP, CP #### [facility] [address] [place] [address] [employer] Classifier: Mike Forde MD Eosinophils (Bld) [#/Vol] 0.00 10*3/uL Normal 0.00-0.40 [facility] Comment on above: Performed By: #### C DP, CP #### [facility] [address] [place] [address] [employer] Classifier: Mike Forde MD Eosinophils/100 WBC (Bld) 0 % Normal 0-5 [facility] Comment on above: Performed By: #### C DP, CP #### [facility] [address] [place] [address] [employer] Classifier: Mike Forde MD Erythrocyte distribution width (RBC) [Ratio] 11.9 % Low 12.1-15.2 [facility] Comment on above: Performed By: #### C DP, CP #### [facility] [address] [place] [id number] [employer] Classifier: Mike Forde MD Hematocrit (Bld) [Volume fraction] 41.1 % Normal 36.0-46.0 [facility] Comment on above: Performed By: #### C DP, CP #### [facility] [address] [place] [id number] [employer] Classifier: Mike Forde MD Hemoglobin (Bld) [Mass/Vol] 14.5 g/dL Normal 12.0-16.0 [facility] Comment on above: Performed By: #### C DP, CP #### [facility] [address] [place] [address] [employer] Classifier: Mike Forde MD Immature granulocytes/100 WBC (Bld) 0 % Normal 0-5 [facility] Comment on above: Performed By: #### C DP, CP #### [facility] [address] [place] [id number] [employer] Classifier: Mike Forde MD Lymphocytes (Bld) [#/Vol] 1.74 10*3/uL Normal 1.00-4.80 [facility] Comment on above: Performed By: #### C DP, CP #### [facility] [address] [place] [address] [employer] Classifier: Mike Forde MD Lymphocytes/100 WBC (Bld) 21 % Normal 15-40 [facility] Comment on above: Performed By: #### C DP, CP #### [facility] [address] [place] [address] [employer] Classifier: Mike Forde MD MCH (RBC) [Entitic mass] 29.2 pg Normal 26.0-34.0 [facility] Comment on above: Performed By: #### C DP, CP #### [facility] [address] [place] [address] [employer] Classifier: Mike Forde MD MCHC (RBC) [Mass/Vol] 35.3 g/dL Normal 31.0-37.0 [facility] Comment on above: Performed By: #### C DP, CP #### [facility] [address] [place] [address] [employer] Classifier: Mike Forde MD MCV (RBC) [Entitic vol] 82.9 fL Normal 80.0-100.0 [facility] Comment on above: Performed By: #### C DP, CP #### [facility] [address] [place] [phone] [employer] Classifier: Mike Forde MD Monocytes (Bld) [#/Vol] 0.50 10*3/uL Normal 0.00-1.00 [facility] Comment on above: Performed By: #### C DP, CP #### [facility] [address] [place] [address] [employer] Classifier: Mike Forde MD Monocytes/100 WBC (Bld) 6 % Normal 4-8 [facility] Comment on above: Performed By: #### C DP, CP #### [facility] [address] [place] [address] [employer] Classifier: Mike Forde MD Neutrophil (Seg) 73 % Normal 47-75 [facility] Comment on above: Performed By: #### C DP, CP #### [facility] [address] [place] [address] [employer] Classifier: Mike Forde MD Platelet mean volume (Bld) [Entitic vol] 10.4 fL Normal 6.0-12.0 [facility] Comment on above: Performed By: #### C DP, CP #### [facility] [address] [place], [place] [phone] [employer] Classifier: Mike Forde MD Platelets (Bld) [#/Vol] 227 10*3/uL Normal 140-450 [facility] Comment on above: Performed By: #### C DP, CP #### [facility] [address] [place], [place] [phone] [employer] Classifier: Mike Forde MD RBC (Bld) [#/Vol] 4.96 10*6/uL Normal 4.00-5.20 [facility] Comment on above: Performed By: #### C DP, CP #### [facility] [address] [place], [place] [phone] [employer] Classifier: Mike Forde MD WBC (Bld) [#/Vol] 8.5 10*3/uL Normal 3.5-11.0 [facility] Comment on above: Performed By: #### C DP, CP #### [facility] [address] [place], [place] [phone] [employer] Classifier: Mike Forde MD Comp Metabolic Profon 2022 Albumin [Mass/Vol] 4.2 g/dL Normal 3.5-5.2 [facility] Comment on above: Performed By: #### C DP, CP #### [facility] [address] [place], [place] [phone] [employer] Classifier: Mike Forde MD Alkaline Phos 48 U/L Normal 35-104 [facility] Comment on above: Performed By: #### C DP, CP #### [facility] [address] [place], [place] [phone] [employer] Classifier: Mike Forde MD ALT [Catalytic activity/Vol] 12 U/L Normal 5-33 [facility] Comment on above: Performed By: #### C DP, CP #### [facility] [address] [place], [place] [phone] [employer] Classifier: Mike Forde MD Anion gap [Moles/Vol] 15 mmol/L Normal 9-17 [facility] Comment on above: Performed By: #### C DP, CP #### [facility] [address] [place], [place] [phone] [employer] Classifier: Mike Forde MD AST [Catalytic activity/Vol] 11 U/L Normal <32 [facility] Comment on above: Performed By: #### C DP, CP #### [facility] [address] [place], [place] [phone] [employer] Classifier: Mike Forde MD Bilirubin [Mass/Vol] mg/dL Low 0.3-1.2 [facility] Comment on above: Performed By: #### C DP, CP #### [facility] [address] [place], [place] [phone] [employer] Classifier: Mike Forde MD BUN/CRE Ratio 14 Normal 9-20 [facility] Comment on above: Performed By: #### C DP, CP #### [facility] [address] [place], [place] [phone] [employer] Classifier: Mike Forde MD Calcium [Mass/Vol] 9.7 mg/dL Normal 8.6-10.4 [facility] Comment on above: Performed By: #### C DP, CP #### [facility] [address] [place], [place] [phone] [employer] Classifier: Mike Forde MD Chloride [Moles/Vol] 101 mmol/L Normal 98-107 [facility] Comment on above: Performed By: #### C DP, CP #### [facility] [address] [place] [address] [employer] Classifier: Mike Forde MD CO2 [Moles/Vol] 22 mmol/L Normal 20-31 [facility] Comment on above: Performed By: #### C DP, CP #### [facility] [address] [place], [place] [phone] [employer] Classifier: Mike Forde MD Creatinine [Mass/Vol] 0.5 mg/dL Normal 0.5-0.9 [facility] Comment on above: Performed By: #### C DP, CP #### [facility] [address] [place] [address] [employer] Classifier: Mike Forde MD GFR/1.73 sq M.predicted among non-blacks MDRD (S/P/Bld) [Vol rate/Area] mL/min/{1.73_m2} Normal >60 [facility] Comment on above: Result Comment: These results [...] Performed By: #### C DP, CP #### [facility] [address] [place] [address] [employer] Classifier: Mike Forde MD Glucose [Mass/Vol] 90 mg/dL Normal 70-99 [facility] Comment on above: Performed By: #### C DP, CP #### [facility] [address] [place] [address] [employer] Classifier: Mike Forde MD Potassium [Moles/Vol] 3.5 mmol/L Low 3.7-5.3 [facility] Comment on above: Performed By: #### C DP, CP #### [facility] [address] [place] [address] [employer] Classifier: Mike Forde MD Protein [Mass/Vol] 7.5 g/dL Normal 6.4-8.3 [facility] Comment on above: Performed By: #### C DP, CP #### [facility] [address] [place], [place] [phone] [employer] Classifier: Mike Forde MD Sodium [Moles/Vol] 138 mmol/L Normal 135-144 [facility] Comment on above: Performed By: #### C DP, CP #### [facility] [address] [place] [address] [employer] Classifier: Mike Forde MD Urea nitrogen [Mass/Vol] 7 mg/dL Normal 6-20 [facility] Comment on above: Performed By: #### C DP, CP #### [facility] [address] [place], [place] [phone] [employer] Classifier: Mike Forde MD Basic Metabolic Profon 04-16 Anion gap [Moles/Vol] 15 mmol/L Normal 9-17 [facility] Comment on above: Performed By: #### C DP, BMP #### [facility] [address] [place], [place] [phone] [employer] Classifier: Mike Forde MD BUN/CRE Ratio 10 Normal 9-20 [facility] Comment on above: Performed By: #### C DP, BMP #### [facility] [address] [place], [place] [phone] [employer] Classifier: Mike Forde MD Calcium [Mass/Vol] 10.2 mg/dL Normal 8.6-10.4 [facility] Comment on above: Performed By: #### C DP, BMP #### [facility] [address] [place], [place] [phone] [employer] Classifier: Mike Forde MD Chloride [Moles/Vol] 98 mmol/L Normal 98-107 [facility] Comment on above: Performed By: #### C DP, BMP #### [facility] [address] [place], [place] [phone] [employer] Classifier: Mike Forde MD CO2 [Moles/Vol] 22 mmol/L Normal 20-31 [facility] Comment on above: Performed By: #### C DP, BMP #### [facility] [address] [place] [address] [employer] Classifier: Mike Forde MD Creatinine [Mass/Vol] 0.7 mg/dL Normal 0.5-0.9 [facility] Comment on above: Performed By: #### C DP, BMP #### [facility] [address] [place] [address] [employer] Classifier: Mike Forde MD GFR/1.73 sq M.predicted among non-blacks MDRD (S/P/Bld) [Vol rate/Area] mL/min/{1.73_m2} Normal >60 [facility] Comment on above: Result Comment: These results [...] Performed By: #### C DP, BMP #### [facility] [address] [place] [address] [employer] Classifier: Mike Forde MD Glucose [Mass/Vol] 113 mg/dL High 70-99 [facility] Comment on above: Performed By: #### C DP, BMP #### [facility] [address] [place] [address] [employer] Classifier: Mike Forde MD Potassium [Moles/Vol] 3.4 mmol/L Low 3.7-5.3 [facility] Comment on above: Performed By: #### C DP, BMP #### [facility] [address] [place], [place] [phone] [employer] Classifier: Mike Forde MD Sodium [Moles/Vol] 135 mmol/L Normal 135-144 [facility] Comment on above: Performed By: #### C DP, BMP #### [facility] [address] [place], [place] [phone] [employer] Classifier: Mike Forde MD Urea nitrogen [Mass/Vol] 7 mg/dL Normal 6-20 [facility] Comment on above: Performed By: #### C DP, BMP #### [facility] [address] [place] [address] [employer] Classifier: Mike Forde MD CBC with Diffon 04-16-2023 Abs. Basophil 0.03 k/uL Normal 0.00-0.20 [facility] Comment on above: Performed By: #### C DP, BMP #### [facility] [address] [place] [address] [employer] Classifier: Mike Forde MD Abs.Imm.Granulocyte 0.02 k/uL Normal 0.00-0.30 [facility] Comment on above: Performed By: #### C DP, BMP #### [facility] [address] [place], [place] [phone] [employer] Classifier: Mike Forde MD Abs.Neutrophil (Seg) 7.51 k/uL High 2.5-7.0 [facility] Comment on above: Performed By: #### C DP, BMP #### [facility] [address] [place], [place] [phone] [employer] Classifier: Mike Forde MD Basophils/100 WBC (Bld) 0 % Normal 0-2 [facility] Comment on above: Performed By: #### C DP, BMP #### [facility] [address] [place] [address] [employer] Classifier: Mike Forde MD Eosinophils (Bld) [#/Vol] 0.03 10*3/uL Normal 0.00-0.40 [facility] Comment on above: Performed By: #### C DP, BMP #### [facility] [address] [place], [place] [phone] [employer] Classifier: Mike Forde MD Eosinophils/100 WBC (Bld) 0 % Normal 0-5 [facility] Comment on above: Performed By: #### C DP, BMP #### [facility] [address] [place], [place] [phone] [employer] Classifier: Mike Forde MD Erythrocyte distribution width (RBC) [Ratio] 11.8 % Low 12.1-15.2 [facility] Comment on above: Performed By: #### C DP, BMP #### [facility] [address] [place] [phone] [employer] Classifier: Mike Forde MD Hematocrit (Bld) [Volume fraction] 43.4 % Normal 36.0-46.0 [facility] Comment on above: Performed By: #### C DP, BMP #### [facility] [address] [place] [address] [employer] Classifier: Mike Forde MD Hemoglobin (Bld) [Mass/Vol] 15.5 g/dL Normal 12.0-16.0 [facility] Comment on above: Performed By: #### C DP, BMP #### [facility] [address] [place], [place] [phone] [employer] Classifier: Mike Forde MD Immature granulocytes/100 WBC (Bld) 0 % Normal 0-5 [facility] Comment on above: Performed By: #### C DP, BMP #### [facility] [address] [place] [address] [employer] Classifier: Mike Forde MD Lymphocytes (Bld) [#/Vol] 2.33 10*3/uL Normal 1.00-4.80 [facility] Comment on above: Performed By: #### C DP, BMP #### [facility] [address] [place] [phone] [employer] Classifier: Mike Forde MD Lymphocytes/100 WBC (Bld) 22 % Normal 15-40 [facility] Comment on above: Performed By: #### C DP, BMP #### [facility] [address] [place] [address] [employer] Classifier: Mike Forde MD MCH (RBC) [Entitic mass] 28.9 pg Normal 26.0-34.0 [facility] Comment on above: Performed By: #### C DP, BMP #### [facility] [address] [place] [address] [employer] Classifier: Mike Forde MD MCHC (RBC) [Mass/Vol] 35.7 g/dL Normal 31.0-37.0 [facility] Comment on above: Performed By: #### C DP, BMP #### [facility] [address] [place] [address] [employer] Classifier: Mike Forde MD MCV (RBC) [Entitic vol] 80.8 fL Normal 80.0-100.0 [facility] Comment on above: Performed By: #### C DP, BMP #### [facility] [address] [place] [address] [employer] Classifier: Mike Forde MD Monocytes (Bld) [#/Vol] 0.88 10*3/uL Normal 0.00-1.00 [facility] Comment on above: Performed By: #### C DP, BMP #### [facility] [address] [place] [address] [employer] Classifier: Mike Forde MD Monocytes/100 WBC (Bld) 8 % Normal 4-8 [facility] Comment on above: Performed By: #### C DP, BMP #### [facility] [address] [place] [address] [phone]) [employer] Classifier: Mike Forde MD Neutrophil (Seg) 70 % Normal 47-75 [facility] Comment on above: Performed By: #### C DP, BMP #### [facility] [address] [place] [phone] ([phone]) [employer] Classifier: iMke Forde MD Platelet mean volume (Bld) [Entitic vol] 10.5 fL Normal 6.0-12.0 [facility] Comment on above: Performed By: #### C DP, BMP #### [facility] [address] [place] [address] ([phone]) [employer] Classifier: Mike Forde MD Platelets (Bld) [#/Vol] 279 10*3/uL Normal 140-450 [facility] Comment on above: Performed By: #### C DP, BMP #### [facility] [address] [place] [address] [phone] [employer] Classifier: Mike Forde MD RBC (Bld) [#/Vol] 5.37 10*6/uL High 4.00-5.20 [facility] Comment on above: Performed By: #### C DP, BMP #### [facility] [address] [place] [address] [phone] [employer] Classifier: Mike Forde MD WBC (Bld) [#/Vol] 10.8 10*3/uL Normal 3.5-11.0 [facility] Comment on above: Performed By: #### C DP, BMP #### [facility] [address] [place] [address] [phone] [employer] Classifier: Mike Forde MD CBC with Auto Differentialon 12-13-2021 Absolute Eos # 0.00 [facility] Absolute Lymph # 1.90 [facility] Absolute [place] # 0.50 [facility] Basophils (Bld) [#/Vol] 0.00 10*3/uL [facility] Basophils/100 WBC (Bld) 0 % 0 - 2 % [facility] Differential Type YES [facility] Eosinophils/100 WBC (Bld) 0 % 0 - 5 % [facility] Hematocrit (Bld) [Volume fraction] 43.5 % 36 - 46 % [facility] Hemoglobin (Bld) [Mass/Vol] 14.6 g/dL 12.0 - 16.0 g/dL [facility] Lymphocytes/100 WBC (Bld) 21 % 15 - 40 % [facility] MCH (RBC) [Entitic mass] 28.9 pg 26 - 34 pg [facility] MCHC (RBC) [Mass/Vol] 33.5 g/dL 31 - 37 g/dL [facility] MCV (RBC) [Entitic vol] 86.2 fL 80 - 100 fL [facility] Monocytes/100 WBC (Bld) 5 % 4 - 8 % [facility] Platelet distribution width (Bld) [Ratio] 12.3 % 12.1 - 15.2 % [facility] Platelets (Bld) [#/Vol] 265 10*3/uL [facility] RBC (Bld) [#/Vol] 5.05 10*6/uL 4.0 - 5.2 m/uL [facility] Segmented neutrophils/100 WBC (Bld) 74 % 47 - 75 % [facility] Segs Absolute 6.60 [facility] WBC (Bld) [#/Vol] 9.1 10*3/uL [facility] Comprehensive Metabolic Pane davi 12-13-2021 Albumin [Mass/Vol] 4.3 g/dL 3.5 - 5.2 g/dL [facility] ALP (Bld) [Catalytic activity/Vol] 77 U/L 35 - 104 U/L [facility] ALT [Catalytic activity/Vol] 23 U/L 5 - 33 U/L [facility] Anion gap [Moles/Vol] 11 mmol/L 9 - 17 mmol/L [facility] AST [Catalytic activity/Vol] 15 U/L <32 [facility] Bilirubin [Mass/Vol] 0.51 mg/dL 0.30 - 1.20 mg/dL [facility] Calcium [Mass/Vol] 9.6 mg/dL 8.6 - 10.4 mg/dL [facility] Chloride [Moles/Vol] 102 mmol/L 98 - 107 mmol/L [facility] CO2 [Moles/Vol] 25 mmol/L 20 - 31 mmol/L [facility] Creatinine [Mass/Vol] 0.77 mg/dL 0.50 - 0.90 mg/dL [facility] Free PSA/Total PSA [Mass fraction] 7.4 g/dL 6.4 - 8.3 g/dL [facility] GFR >60 >60 mL/min [facility] GFR Non- >60 >60 mL/min [facility] GFR/1.73 sq M.predicted MDRD (S/P/Bld) [Vol rate/Area] [facility] Comment on above: Average GFR for 20-2 9 years old: 116 mL/min/1.73sq m Chronic Kidney Disease: <60 mL/min/1.73sq m Kidney failure: <15 mL/min/1.73sq m eGFR calculated using average adult body mass. Additional eGFR calculator available at: http://www.[employer]/multiple_crcl_2012.htm Glucose [Mass/Vol] 93 mg/dL 70 - 99 mg/dL [facility] Potassium [Moles/Vol] 4.2 mmol/L 3.7 - 5.3 mmol /L [facility] Sodium [Moles/Vol] 138 mmol/L 135 - 144 mmol/L [facility] Urea nitrogen (BldV) [Mass/Vol] 9 mg/dL 6 - 20 mg/dL [facility] Urea nitrogen/Creatinine (Bld) [Mass ratio] 12 [facility] Encounters Encounter Date Encounter Type Care Provider Facility Start: 08-09-2023 End: 08-09-2023 ambulatory NAHED SALINAS Not Available Start: 07-12-2023 End: 07-12-2023 ambulatory ALICIA CLANCY Not Available Start: 06-14-2023 End: 06-14-2023 ambulatory NAHED SALINAS Not Available Start: 05-30-2023 End: 05-31-2023 Emergency department patient visit TERRENCE WOLF [facility] Start: 04-16-2023 End: 04-17-2023 Emergency department patient visit ARPIT PAREKH [facility] Start: 12-13-2021 End: 12-13-2021 Subsequent hospital visit [...] DTaP/Tdap/Td vaccine (3 - Td or Tdap) [facility] Start: 12-13-2022 Depression Screen Depression Screen [facility] Start: 03-14-2022 COVID-19 Vaccine (3 - Booster for Pfizer series) COVID-19 Vaccine (3 - Booster for Pfizer series) [facility] Start: 03-10-2022 Influenza vaccination Flu vaccine (S angelo Ended) [facility] Start: 01-11-2022 End: 01-11-2022 Patient encounter procedure 01/11/2022 Office Visit Family Medicine 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 APRN - CNP [address] [place] [address] [facility] Start: 2019 Screening for malign ant neoplasm of cervix Pap smear [facility] Start: 03-10-2019 Influenza vaccination Flu vaccine (# 1) [place], [place] Start: 2017 DTaP/Tdap/Td vaccine (1 - Tdap) DTaP/Tdap/Td vaccine (1 - Tdap) [place], [place] Start: 2016 Hepatitis C screening Hepatitis C sc reen [facility] Start: 2014 Chlamydia screen Chlamydia screen [place], [place] Start: 2014 Screening for Chlamy nathalie trachomatis Chlamydia screen [facility] Start: 2013 HIV screen HIV screen [place], [place] Start: 2013 HIV screening HIV screen [facility] Start: 2013 HPV vaccine (1 - Fem dana 3-dose series) HPV vaccine (1 - Female 3-dose series) [place], [place] Start: 2011 Varicella Vaccine (1 of 2 - 13+ 2-dose series) Varicella Vaccine (1 of 2 - 13+ 2-dose series) [place], [place] Start: 2009 HPV vaccine (1 - 2-d ose series) HPV vaccine (1 - 2-dose series) [facility] Start: 1999 Varicella vaccine (1 of 2 - 2-dose childhood series) Varicella vaccine (1 of 2 - 2-dose childhood series) [facility] End: 12-13-2021 CBC W Auto Differential panel - Blood CBC with Auto Differential Lab Routine Diarrhea, unspecified type Blood in stool, gustavo 1 Occurrences starting 12/13/2021 until 12/13/2021 [facility] [employer] Phone: Comment on above: 1 Occurrences starti ng 12/13/2021 until 12/13/2021 End: 12-13-2021 Celiac Disease Panel Celiac Disease Panel Lab Routine Diarrhea, unspecified type Abdominal cramping 1 Occurrences starting 12/13/2021 until 12/13/2021 [facility] [employer] Phone: Comment on above: 1 Occurrences starti ng 12/13/2021 until 12/13/2021 End: 12-13-2021 Celiac Plus [facility] [employer] Phone: Comment on above: Once for 1 Occurrenc es starting 12/13/2021 until 12/13/2021 End: 12-13-2021 Comprehensive metabolic 2000 panel - Serum or Plasma Comprehensive Metabolic Panel Lab Routine Blood in stool, gustavo Gastroesophageal reflux disease without esophagitis 1 Occurrences starting 12/13/2021 until 12/13/2021 [facility] Work Phone: Comment on above: 1 Occurrences starti ng 12/13/2021 until 12/13/2021 End: 03-01-2019 Varicella Zoster Antibody, IgG Varicella Zoster Antibody, IgG Lab Routine Need for varicella vaccine 1 Occurrences starting 03/01/2019 until 03/01/2019 [place], [place] Comment on above: 1 Occurrences starti ng 03/01/2019 until 03/01/2019 Varicella Zoster Antibody, IgG Varicella Zoster Antibody, IgG Lab Routine Need for varicella vaccine 03/01/2019 11:50 AM EDT [place], [place] Immunizations Immunization Date Immunization Notes Care Provider Rohit mcnally 09-18-2021 COVID-19, Pfizer Pur ple top, DILUTE for use, 12+ yrs, 30mcg/0.3mL dose 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 LEAD NET SOFTWARE DEVELOPER - PROCESS CONTROL TECH Work Phone: [facility] Work Phone: 11-27-2019 Hepatitis B vaccine (recombinant), CpG adjuvanted 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 LEAD NET SOFTWARE DEVELOPER - PROCESS CONTROL TECH Work Phone: [facility] Work Phone: 11-27-2019 tetanus toxoid, redu gordon diphtheria toxoid, and acellular pertussis vaccine, adsorbed 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 LEAD NET SOFTWARE DEVELOPER - PROCESS CONTROL TECH Work Phone: [facility] Work Phone: 03-27-2019 hepatitis B vaccine, adult dosage 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 LEAD NET SOFTWARE DEVELOPER - PROCESS CONTROL TECH Work Phone: [facility] Work Phone: 03-27-2019 measles, mumps and rubella virus vaccine 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 LEAD NET SOFTWARE DEVELOPER - PROCESS CONTROL TECH Work Phone: [facility] [employer] Work Phone: 03-03-2019 measles, mumps and rubella virus vaccine 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 LEAD NET SOFTWARE DEVELOPER - [facility] Work Phone: [facility] [employer] Work Phone: 02-25-2019 hepatitis B vaccine, adult dosage 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 [facility] [email or web address] Payers Date Payer Category Payer Unknown [id number] 2022 Private Health Insurance [id number] 2018 Unknown BCBS [place] P PO xxxxxxxxxxxx 2018-Present [address] [place] [address] xxxxxxxxxxxx [id number] 2018 Unknown [id number] 1998 Unknown [id number] 1998 Unknown [id number] 1998 Unknown [id number] 1998 Unknown [id number] 1998 Unknown [id number] Social History Date Type Detail Facility Start: 04-25-2016 End: 11-26-2018 Tobacco smoking status NHIS Never smoker [place], [place] Start: 11-26-2018 Alcohol intake No [place], [place] Start: 2000 Sex Assigned At Not on file [place], [place] Start: 04-25-2016 Tobacco use and exposure Smokeless tobacco non-user [facility] Phone: Start: 12-13-2021 Alcohol intake Current non-dr paver installer of alcohol (finding) [facility] Phone: Start: 12-13-2021 History SDOH Financial 5 [facility] Phone: Start: 12-13-2021 History 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 1 [facility] Phone: Evaluation note Note Date & Type Note Facility Evaluation note Diagnosis Blood in stool, gustavo Blood in stool Gastroesophageal reflux disease without esophagitis Esophageal reflux Diarrhea, unspecified type Abdominal cramping Abdominal pain, unspecified site documented in this encounter [facility] Phone: Assessments Diagnosis Need for varicella vaccine Need for prophylactic vaccination and inoculation against varicella Advance Directives No Advanced Directives Records FoundDocuments on File Type Date Recorded Patient Supervisor Network Control Operators Expl anation Advance Directives and Living Will Power of Pump Servicer Documents on File Type Date Recorded Patient Supervisor Network Control Operators Expl anation ACP-Advance Directive ACP-Power of Pump Servicer Summary Purpose Family History No Family History Records FoundNo Family History Records Found Additional Source Comments Care Teams (unrecognized sec tion and content) Insurance Collector Relationship Specialty Start Date End Date 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, LEAD NET SOFTWARE DEVELOPER - PROCESS CONTROL TECH [address] [place] [address] PCP - General Nurse Practitioner 11/23/16 INFORMATION SOURCE (unrecogn ized section and content) DATE CREATED AUTHOR 06/02/2023 Rachel allen DATE CREATED AUTHOR AUTHOR'S ORGANIZ ATION 08/15/2023 [facility] FOR RECORDS PERTAINING TO PATIENTS [...] BE BASED ON THE PRIMARY CLINICAL RECORDS. [email or web address] provides no warranty or guarantee of the accuracy or completeness of information in this document.
[2023-09-08 07:58] LABS: Glucose Fasting 81 mg/dL (<95)
[2023-09-08 08:37] LABS: Glucose 1 Hour 101 mg/dL (<180)
[2023-09-08 10:46] LABS: Glucose 2 Hour 116 mg/dL (<155)
[2023-09-08 11:03] LABS: Glucose 3 Hour 121 mg/dL (<140)
== END 2023-09-08 07:06 | disposition home or self-care (01) ==
LOC: LAB 07:06
PROVIDERS: Visit Provider Obstetrics & Gynecology
DX: R73.09 Other abnormal glucose (principal)
CPT/HCPCS: 36415; 82951; 82952

== ENCOUNTER 2023-09-21 16:25 | Outpatient (OUT) | payer BC, OTHER, SELFPAY ==
[2023-09-21 17:11] LABS: Thyroid Stimulating Hormone 2.143 uIU/mL (0.358-3.740)
== END 2023-09-21 16:26 | disposition home or self-care (01) ==
LOC: LAB 16:26
PROVIDERS: Visit Provider Obstetrics & Gynecology
DX: E03.8 Other specified hypothyroidism (principal)
CPT/HCPCS: 36415; 84443

== ENCOUNTER 2023-09-23 07:25 | Outpatient (OUT) | payer BC, OTHER, SELFPAY ==
--- NOTE | 2023-09-23 | US_ITS ---
[address] [address] Patient Name: DANIEL ARMENDARIZ MRN: [id number] date: 2000 Sex: F Assigned Patient Location: [facility] Current Patient Location: Accession/Order Number: [id number] Exam Date: 09/23/2023 11:07 Report Date: 09/24/2023 03:38 At the request of: NAHED SALINAS Procedure: US OB BPP w non-stress EXAMINATION: US OB BPP w non-stress HISTORY: HYPERTHYROIDISM AFFECTING O99.280 COMPARISON: Ultrasound OB anatomy 08/15/2023 TECHNIQUE: Ultrasound biophysical profile was performed in the radiology department. BREATHING MOVEMENTS: 2.0 GROSS BODY MOVEMENTS: 2.0 TONE: 2.0 QUALITATIVE AMNIOTIC FLUID VOLUME: 2.0 PRESENTATION: CEPHALIC HEART RATE: 137.8 bpm bpm. AMNIOTIC FLUID VOLUME: 15.8 cm GESTATIONAL AGE: 31 weeks 0 days CONCLUSION: Total biophysical profile score 8.0. Electronically authenticated by: RAMA BOWMAN Date: 09/24/2023 03:38
--- OUTSIDE RECORDS SUMMARY | 2023-09-23 07:28 | XMS_ITS | CCD ---
Author Name Unknown Address [address] [place] [address] Organization [facility] Care Team Providers Care Clearance Diver Name Role Phone 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 Primary Care Provider TERRENCE WOLF Attending Unavailable ARPIT PAREKH Primary Care Unavailable ARPIT PAREKH Primary Care Unavailable WILLIAM WHITAKER Attending Unavailable ALICIA CLANCY Attending Unavailable NAHED SALINAS Attending Unavailable NAHED SALINAS Attending Unavailable ALICIA CLANCY Attending Unavailable NAHED [...] 05-30-2023 Abs. Basophil 0.01 k/uL Normal 0.00-0.20 [facility] Comment on above: Performed By: #### C DP, CP #### [facility] [address] [place] [address] Economics Faculty Member: Mike Forde MD Abs.Imm.Granulocyte 0.01 k/uL Normal 0.00-0.30 [facility] Comment on above: Performed By: #### C DP, CP #### [facility] [address] [place] [address] Economics Faculty Member: Mike Forde MD Abs.Neutrophil (Seg) 6.24 k/uL Normal 2.5-7.0 [facility] Comment on above: Performed By: #### C DP, CP #### [facility] [address] [place] [address] Economics Faculty Member: Mike Forde MD Basophils/100 WBC (Bld) 0 % Normal 0-2 [facility] Comment on above: Performed By: #### C DP, CP #### [facility] [address] [place] [address] Economics Faculty Member: Mike Forde MD Eosinophils (Bld) [#/Vol] 0.00 10*3/uL Normal 0.00-0.40 [facility] Comment on above: Performed By: #### C DP, CP #### [facility] [address] [place] [phone] [employer] Faculty Member: Mike Forde MD Eosinophils/100 WBC (Bld) 0 % Normal 0-5 [facility] Comment on above: Performed By: #### C DP, CP #### [facility] [address] [place] [phone] Economics Faculty Member: Mike Forde MD Erythrocyte distribution width (RBC) [Ratio] 11.9 % Low 12.1-15.2 [facility] Comment on above: Performed By: #### C DP, CP #### [facility] [address] [place] [phone] [employer] Faculty Member: Mike Forde MD Hematocrit (Bld) [Volume fraction] 41.1 % Normal 36.0-46.0 [facility] Comment on above: Performed By: #### C DP, CP #### [facility] [address] [place] [address] Economics Faculty Member: Mike Forde MD Hemoglobin (Bld) [Mass/Vol] 14.5 g/dL Normal 12.0-16.0 [facility] Comment on above: Performed By: #### C DP, CP #### [facility] [address] [place] [phone] Economics Faculty Member: Mike Forde MD Immature granulocytes/100 WBC (Bld) 0 % Normal 0-5 [facility] Comment on above: Performed By: #### C DP, CP #### [facility] [address] [place] [phone] Economics Faculty Member: Mike Forde MD Lymphocytes (Bld) [#/Vol] 1.74 10*3/uL Normal 1.00-4.80 [facility] Comment on above: Performed By: #### C DP, CP #### [facility] [address] [place] [phone] Economics Faculty Member: Mike Forde MD Lymphocytes/100 WBC (Bld) 21 % Normal 15-40 [facility] Comment on above: Performed By: #### C DP, CP #### [facility] [address] [place] [address] Economics Faculty Member: Mike Forde MD MCH (RBC) [Entitic mass] 29.2 pg Normal 26.0-34.0 [facility] Comment on above: Performed By: #### C DP, CP #### [facility] [address] [place] [phone] Economics Faculty Member: Mike Forde MD MCHC (RBC) [Mass/Vol] 35.3 g/dL Normal 31.0-37.0 [facility] Comment on above: Performed By: #### C DP, CP #### [facility] [address] [place] [address] Economics Faculty Member: Mike Forde MD MCV (RBC) [Entitic vol] 82.9 fL Normal 80.0-100.0 [facility] Comment on above: Performed By: #### C DP, CP #### [facility] [address] [place] [address] Economics Faculty Member: Mike Forde MD Monocytes (Bld) [#/Vol] 0.50 10*3/uL Normal 0.00-1.00 [facility] Comment on above: Performed By: #### C DP, CP #### [facility] [address] [place] [address] Economics Faculty Member: Mike Forde MD Monocytes/100 WBC (Bld) 6 % Normal 4-8 [facility] Comment on above: Performed By: #### C DP, CP #### [facility] [address] [place] [address] Economics Faculty Member: Mike Forde MD Neutrophil (Seg) 73 % Normal 47-75 [facility] Comment on above: Performed By: #### C DP, CP #### [facility] [address] [place] [phone] Economics Faculty Member: Mike Forde MD Platelet mean volume (Bld) [Entitic vol] 10.4 fL Normal 6.0-12.0 [facility] Comment on above: Performed By: #### C DP, CP #### [facility] [address] [place], [place] [phone] Economics Faculty Member: Mike Forde MD Platelets (Bld) [#/Vol] 227 10*3/uL Normal 140-450 [facility] Comment on above: Performed By: #### C DP, CP #### [facility] [address] [place], [place] [phone] Economics Faculty Member: Mike Forde MD RBC (Bld) [#/Vol] 4.96 10*6/uL Normal 4.00-5.20 [facility] Comment on above: Performed By: #### C DP, CP #### [facility] [address] [place], [place] [phone] Economics Faculty Member: Mike Forde MD WBC (Bld) [#/Vol] 8.5 10*3/uL Normal 3.5-11.0 [facility] Comment on above: Performed By: #### C DP, CP #### [facility] [address] [place], [place] [phone] Economics Faculty Member: Mike Forde MD Comp Metabolic Profon 2022 Albumin [Mass/Vol] 4.2 g/dL Normal 3.5-5.2 [facility] Comment on above: Performed By: #### C DP, CP #### [facility] [address] [place], [place] [phone] Economics Faculty Member: Mike Forde MD Alkaline Phos 48 U/L Normal 35-104 [facility] Comment on above: Performed By: #### C DP, CP #### [facility] [address] [place], [place] [phone] Economics Faculty Member: Mike Forde MD ALT [Catalytic activity/Vol] 12 U/L Normal 5-33 [facility] Comment on above: Performed By: #### C DP, CP #### [facility] [address] [place], [place] [phone] Economics Faculty Member: Mike Forde MD Anion gap [Moles/Vol] 15 mmol/L Normal 9-17 [facility] Comment on above: Performed By: #### C DP, CP #### [facility] [address] [place], [place] [phone] Economics Faculty Member: Mike Forde MD AST [Catalytic activity/Vol] 11 U/L Normal <32 [facility] Comment on above: Performed By: #### C DP, CP #### [facility] [address] [place], [place] [phone] Economics Faculty Member: Mike Forde MD Bilirubin [Mass/Vol] mg/dL Low 0.3-1.2 [facility] Comment on above: Performed By: #### C DP, CP #### [facility] [address] [place], [place] [phone] Economics Faculty Member: Mike Forde MD BUN/CRE Ratio 14 Normal 9-20 [facility] Comment on above: Performed By: #### C DP, CP #### [facility] [address] [place], [place] [phone] Economics Faculty Member: Mike Forde MD Calcium [Mass/Vol] 9.7 mg/dL Normal 8.6-10.4 [facility] Comment on above: Performed By: #### C DP, CP #### [facility] [address] [place], [place] [phone] Economics Faculty Member: Mike Forde MD Chloride [Moles/Vol] 101 mmol/L Normal 98-107 [facility] Comment on above: Performed By: #### C DP, CP #### [facility] [address] [place], [place] [phone] Economics Faculty Member: Mike Forde MD CO2 [Moles/Vol] 22 mmol/L Normal 20-31 [facility] Comment on above: Performed By: #### C DP, CP #### [facility] [address] [place], [place] [phone] Economics Faculty Member: Mike Forde MD Creatinine [Mass/Vol] 0.5 mg/dL Normal 0.5-0.9 [facility] Comment on above: Performed By: #### C DP, CP #### [facility] [address] [place] [address] Economics Faculty Member: Mike Forde MD GFR/1.73 sq M.predicted among non-blacks MDRD (S/P/Bld) [Vol rate/Area] mL/min/{1.73_m2} Normal >60 [facility] Comment on above: Result Comment: These [...] Performed By: #### C DP, CP #### [facility] [address] [place], [place] [phone] Economics Faculty Member: Mike Forde MD Glucose [Mass/Vol] 90 mg/dL Normal 70-99 [facility] Comment on above: Performed By: #### C DP, CP #### [facility] [address] [place] [address] Economics Faculty Member: Mike Forde MD Potassium [Moles/Vol] 3.5 mmol/L Low 3.7-5.3 [facility] Comment on above: Performed By: #### C DP, CP #### [facility] [address] [place] [address] Economics Faculty Member: Mike Forde MD Protein [Mass/Vol] 7.5 g/dL Normal 6.4-8.3 [facility] Comment on above: Performed By: #### C DP, CP #### [facility] [address] [place], [place] [phone] Economics Faculty Member: Mike Forde MD Sodium [Moles/Vol] 138 mmol/L Normal 135-144 [facility] Comment on above: Performed By: #### C DP, CP #### [facility] [address] [place], [place] [phone] Economics Faculty Member: Mike Forde MD Urea nitrogen [Mass/Vol] 7 mg/dL Normal 6-20 [facility] Comment on above: Performed By: #### C DP, CP #### [facility] [address] [place], [place] [phone] Economics Faculty Member: Mike Forde MD Basic Metabolic Profon 04-16 Anion gap [Moles/Vol] 15 mmol/L Normal 9-17 [facility] Comment on above: Performed By: #### C DP, BMP #### [facility] [address] [place], [place] [phone] Economics Faculty Member: Mike Forde MD BUN/CRE Ratio 10 Normal 9-20 [facility] Comment on above: Performed By: #### C DP, BMP #### [facility] [address] [place], [place] [phone] Economics Faculty Member: Mike Forde MD Calcium [Mass/Vol] 10.2 mg/dL Normal 8.6-10.4 [facility] Comment on above: Performed By: #### C DP, BMP #### [facility] [address] [place], [place] [phone] Economics Faculty Member: Mike Forde MD Chloride [Moles/Vol] 98 mmol/L Normal 98-107 [facility] Comment on above: Performed By: #### C DP, BMP #### [facility] [address] [place], [place] [phone] Economics Faculty Member: Mike Forde MD CO2 [Moles/Vol] 22 mmol/L Normal 20-31 [facility] Comment on above: Performed By: #### C DP, BMP #### [facility] [address] [place], [place] [phone] Economics Faculty Member: Mike Forde MD Creatinine [Mass/Vol] 0.7 mg/dL Normal 0.5-0.9 [facility] Comment on above: Performed By: #### C DP, BMP #### [facility] [address] [place] [address] Economics Faculty Member: Mike Forde MD GFR/1.73 sq M.predicted among non-blacks MDRD (S/P/Bld) [Vol rate/Area] mL/min/{1.73_m2} Normal >60 [facility] Comment on above: Result Comment: These [...] Performed By: #### C DP, BMP #### [facility] [address] [place] [address] Economics Faculty Member: Mike Forde MD Glucose [Mass/Vol] 113 mg/dL High 70-99 [facility] Comment on above: Performed By: #### C DP, BMP #### [facility] [address] [place], [place] [phone] Economics Faculty Member: Mike Forde MD Potassium [Moles/Vol] 3.4 mmol/L Low 3.7-5.3 [facility] Comment on above: Performed By: #### C DP, BMP #### [facility] [address] [place] [address] Economics Faculty Member: Mike Forde MD Sodium [Moles/Vol] 135 mmol/L Normal 135-144 [facility] Comment on above: Performed By: #### C DP, BMP #### [facility] [address] [place] [address] Economics Faculty Member: Mike Forde MD Urea nitrogen [Mass/Vol] 7 mg/dL Normal 6-20 [facility] Comment on above: Performed By: #### C DP, BMP #### [facility] [address] [place] [address] Economics Faculty Member: Mike Forde MD CBC with Diffon 04-16-2023 Abs. Basophil 0.03 k/uL Normal 0.00-0.20 [facility] Comment on above: Performed By: #### C DP, BMP #### [facility] [address] [place] [address] Economics Faculty Member: Mike Forde MD Abs.Imm.Granulocyte 0.02 k/uL Normal 0.00-0.30 [facility] Comment on above: Performed By: #### C DP, BMP #### [facility] [address] [place] [address] Economics Faculty Member: Mike Forde MD Abs.Neutrophil (Seg) 7.51 k/uL High 2.5-7.0 [facility] Comment on above: Performed By: #### C DP, BMP #### [facility] [address] [place] [address] Economics Faculty Member: Mike Forde MD Basophils/100 WBC (Bld) 0 % Normal 0-2 [facility] Comment on above: Performed By: #### C DP, BMP #### [facility] [address] [place] [address] Economics Faculty Member: Mike Forde MD Eosinophils (Bld) [#/Vol] 0.03 10*3/uL Normal 0.00-0.40 [facility] Comment on above: Performed By: #### C DP, BMP #### [facility] [address] [place], [place] [phone] Economics Faculty Member: Mike Forde MD Eosinophils/100 WBC (Bld) 0 % Normal 0-5 [facility] Comment on above: Performed By: #### C DP, BMP #### [facility] [address] [place] [phone] Economics Faculty Member: Mike Forde MD Erythrocyte distribution width (RBC) [Ratio] 11.8 % Low 12.1-15.2 [facility] Comment on above: Performed By: #### C DP, BMP #### [facility] [address] [place] [phone] Economics Faculty Member: Mike Forde MD Hematocrit (Bld) [Volume fraction] 43.4 % Normal 36.0-46.0 [facility] Comment on above: Performed By: #### C DP, BMP #### [facility] [address] [place] [phone] Economics Faculty Member: Mike Forde MD Hemoglobin (Bld) [Mass/Vol] 15.5 g/dL Normal 12.0-16.0 [facility] Comment on above: Performed By: #### C DP, BMP #### [facility] [address] [place], [place] [phone] Economics Faculty Member: Mike Forde MD Immature granulocytes/100 WBC (Bld) 0 % Normal 0-5 [facility] Comment on above: Performed By: #### C DP, BMP #### [facility] [address] [place] [address] Economics Faculty Member: Mike Forde MD Lymphocytes (Bld) [#/Vol] 2.33 10*3/uL Normal 1.00-4.80 [facility] Comment on above: Performed By: #### C DP, BMP #### [facility] [address] [place] [address] Economics Faculty Member: Mike Forde MD Lymphocytes/100 WBC (Bld) 22 % Normal 15-40 [facility] Comment on above: Performed By: #### C DP, BMP #### [facility] [address] [place] [address] Economics Faculty Member: Mike Forde MD MCH (RBC) [Entitic mass] 28.9 pg Normal 26.0-34.0 [facility] Comment on above: Performed By: #### C DP, BMP #### [facility] [address] [place] [address] Economics Faculty Member: Mike Forde MD MCHC (RBC) [Mass/Vol] 35.7 g/dL Normal 31.0-37.0 [facility] Comment on above: Performed By: #### C DP, BMP #### [facility] [address] [place] [phone] Economics Faculty Member: Mike Forde MD MCV (RBC) [Entitic vol] 80.8 fL Normal 80.0-100.0 [facility] Comment on above: Performed By: #### C DP, BMP #### [facility] [address] [place] [address] Economics Faculty Member: Mike Forde MD Monocytes (Bld) [#/Vol] 0.88 10*3/uL Normal 0.00-1.00 [facility] Comment on above: Performed By: #### C DP, BMP #### [facility] [address] [place] [address] Economics Faculty Member: Mike Forde MD Monocytes/100 WBC (Bld) 8 % Normal 4-8 [facility] Comment on above: Performed By: #### C DP, BMP #### [facility] [address] [place] [address] Economics Faculty Member: Mike Forde MD Neutrophil (Seg) 70 % Normal 47-75 [facility] Comment on above: Performed By: #### C DP, BMP #### [facility] [address] [place] [phone] Economics Faculty Member: Mike Forde MD Platelet mean volume (Bld) [Entitic vol] 10.5 fL Normal 6.0-12.0 [facility] Comment on above: Performed By: #### C DP, BMP #### [facility] [address] [place] [phone] [phone] Economics Faculty Member: Mike Forde MD Platelets (Bld) [#/Vol] 279 10*3/uL Normal 140-450 [facility] Comment on above: Performed By: #### C DP, BMP #### [facility] [address] [place] [phone] ([phone] Economics Faculty Member: Mike Forde MD RBC (Bld) [#/Vol] 5.37 10*6/uL High 4.00-5.20 [facility] Comment on above: Performed By: #### C DP, BMP #### [facility] [address] [place] [phone] ([phone] Economics Faculty Member: Mike Forde MD WBC (Bld) [#/Vol] 10.8 10*3/uL Normal 3.5-11.0 [facility] Comment on above: Performed By: #### C DP, BMP #### [facility] [address] [place] [phone] Economics Faculty Member: Mike Forde MD CBC with Auto Differentialon 12-13-2021 Absolute Eos # 0.00 [facility] Absolute Lymph # 1.90 [facility] Absolute Hinds # 0.50 [facility] Basophils (Bld) [#/Vol] 0.00 10*3/uL [facility] Basophils/100 WBC (Bld) 0 % 0 - 2 % [facility] Differential Type YES [facility] Eosinophils/100 WBC (Bld) 0 % 0 - 5 % [facility] Hematocrit (Bld) [Volume fraction] 43.5 % 36 - 46 % [facility] Hemoglobin (Bld) [Mass/Vol] 14.6 g/dL 12.0 - 16.0 g/dL [facility] Lymphocytes/100 WBC (Bld) 21 % 15 - 40 % [facility] MCH (RBC) [Entitic mass] 28.9 pg 26 - 34 pg [facility] MCHC (RBC) [Mass/Vol] 33.5 g/dL 31 - 37 g/dL [facility] MCV (RBC) [Entitic vol] 86.2 fL 80 - 100 fL [facility] Monocytes/100 WBC (Bld) 5 % 4 - 8 % [facility] Platelet distribution width (Bld) [Ratio] 12.3 % 12.1 - 15.2 % [facility] Platelets (Bld) [#/Vol] 265 10*3/uL [facility] RBC (Bld) [#/Vol] 5.05 10*6/uL 4.0 - 5.2 m/uL [facility] Segmented neutrophils/100 WBC (Bld) 74 % 47 - 75 % [facility] Segs Absolute 6.60 [facility] WBC (Bld) [#/Vol] 9.1 10*3/uL [facility] Comprehensive Metabolic Pane davi 12-13-2021 Albumin [Mass/Vol] 4.3 g/dL 3.5 - 5.2 g/dL [facility] ALP (Bld) [Catalytic activity/Vol] 77 U/L 35 - 104 U/L [facility] ALT [Catalytic activity/Vol] 23 U/L 5 - 33 U/L [facility] Anion gap [Moles/Vol] 11 mmol/L 9 - 17 mmol/L [facility] AST [Catalytic activity/Vol] 15 U/L <32 [facility] Bilirubin [Mass/Vol] 0.51 mg/dL 0.30 - 1.20 mg/dL [facility] Calcium [Mass/Vol] 9.6 mg/dL 8.6 - 10.4 mg/dL [facility] Chloride [Moles/Vol] 102 mmol/L 98 - 107 mmol/L [facility] CO2 [Moles/Vol] 25 mmol/L 20 - 31 mmol/L [facility] Creatinine [Mass/Vol] 0.77 mg/dL 0.50 - 0.90 mg/dL [facility] Free PSA/Total PSA [Mass fraction] 7.4 g/dL 6.4 - 8.3 g/dL [facility] GFR >60 >60 mL/min [facility] GFR Non- >60 >60 mL/min [facility] GFR/1.73 sq M.predicted MDRD (S/P/Bld) [Vol rate/Area] [facility] Comment on above: Average GFR for 20-2 9 years old: 116 mL/min/1.73sq m Chronic Kidney Disease: <60 mL/min/1.73sq m Kidney failure: <15 mL/min/1.73sq m eGFR calculated using average adult body mass. Additional eGFR calculator available at: http://www.DooBop.BriefMe/multiple_crcl_2012.htm Glucose [Mass/Vol] 93 mg/dL 70 - 99 mg/dL [facility] Potassium [Moles/Vol] 4.2 mmol/L 3.7 - 5.3 mmol /L [facility] Sodium [Moles/Vol] 138 mmol/L 135 - 144 mmol/L [facility] Urea nitrogen (BldV) [Mass/Vol] 9 mg/dL 6 - 20 mg/dL [facility] Urea nitrogen/Creatinine (Bld) [Mass ratio] 12 [facility] Encounters Encounter Date Encounter Type Care Provider Facility Start: 09-21-2023 End: 09-21-2023 ambulatory NAHED RITA Not Available Start: 09-07-2023 End: 09-07-2023 ambulatory ALICIA CLANCY Not Available Start: 08-09-2023 End: 08-09-2023 ambulatory NAHED RITA Not Available Start: 07-12-2023 End: 07-12-2023 ambulatory ALICIA CLANCY Not Available Start: 06-14-2023 End: 06-14-2023 ambulatory NAHED RITA Not Available Start: 05-30-2023 End: 05-31-2023 Emergency department patient visit ASHLEYEZIO Lozano MARYANN [facility] Start: 04-16-2023 End: 04-17-2023 Emergency department patient visit ARPIT PAREKH [facility] Start: 12-13-2021 End: 12-13-2021 Subsequent hospital visit by physician Arpit Leblanc CNP Work Phone: [email or web address] Comment on above: Blood in stool, [...] DTaP/Tdap/Td vaccine (3 - Td or Tdap) [facility] Start: 12-13-2022 Depression Screen Depression Screen [facility] Start: 03-14-2022 COVID-19 Vaccine (3 - Booster for Pfizer series) COVID-19 Vaccine (3 - Booster for Pfizer series) [facility] Start: 03-10-2022 Influenza vaccination Flu vaccine (S angelo Ended) [facility] Start: 01-11-2022 End: 01-11-2022 Patient encounter procedure 01/11/2022 Office Visit Family Medicine 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 APRN - CNP [address] [place] [phone] [facility] Start: 2019 Screening for malign ant neoplasm of cervix Pap smear [facility] Start: 03-10-2019 Influenza vaccination Flu vaccine (# 1) [place], [place] Start: 2017 DTaP/Tdap/Td vaccine (1 - Tdap) DTaP/Tdap/Td vaccine (1 - Tdap) [place], [place] Start: 2016 Hepatitis C screening Hepatitis C sc reen [facility] Start: 2014 Chlamydia screen Chlamydia screen [place], [place] Start: 2014 Screening for Chlamy nathalie trachomatis Chlamydia screen [facility] Start: 2013 HIV screen HIV screen [place], [place] Start: 2013 HIV screening HIV screen [facility] Start: 2013 HPV vaccine (1 - Fem dana 3-dose series) HPV vaccine (1 - Female 3-dose series) [place], [place] Start: 2011 Varicella Vaccine (1 of 2 - 13+ 2-dose series) Varicella Vaccine (1 of 2 - 13+ 2-dose series) [place], [place] Start: 2009 HPV vaccine (1 - 2-d ose series) HPV vaccine (1 - 2-dose series) [facility] Start: 1999 Varicella vaccine (1 of 2 - 2-dose childhood series) Varicella vaccine (1 of 2 - 2-dose childhood series) [facility] End: 12-13-2021 CBC W Auto Differential panel - Blood CBC with Auto Differential Lab Routine Diarrhea, unspecified type Blood in stool, gustavo 1 Occurrences starting 12/13/2021 until 12/13/2021 [facility] Work Phone: Comment on above: 1 Occurrences starti ng 12/13/2021 until 12/13/2021 End: 12-13-2021 Celiac Disease Panel Celiac Disease Panel Lab Routine Diarrhea, unspecified type Abdominal cramping 1 Occurrences starting 12/13/2021 until 12/13/2021 [facility] Work Phone: Comment on above: 1 Occurrences starti ng 12/13/2021 until 12/13/2021 End: 12-13-2021 [facility] Work Phone: Comment on above: Once for 1 Occurrenc es starting 12/13/2021 until 12/13/2021 End: 12-13-2021 Comprehensive metabolic 2000 panel - Serum or Plasma Comprehensive Metabolic Panel Lab Routine Blood in stool, gustavo Gastroesophageal reflux disease without esophagitis 1 Occurrences starting 12/13/2021 until 12/13/2021 [facility] Work Phone: Comment on above: 1 Occurrences starti ng 12/13/2021 until 12/13/2021 End: 03-01-2019 Varicella Zoster Antibody, IgG Varicella Zoster Antibody, IgG Lab Routine Need for varicella vaccine 1 Occurrences starting 03/01/2019 until 03/01/2019 [place], [place] Comment on above: 1 Occurrences starti ng 03/01/2019 until 03/01/2019 Varicella Zoster Antibody, IgG Varicella Zoster Antibody, IgG Lab Routine Need for varicella vaccine 03/01/2019 11:50 AM EDT [place], [place] Immunizations Immunization Date Immunization Notes Care Provider Rohit [email or web address] 09-18-2021 COVID-19, Pfizer Pur ple top, DILUTE for use, 12+ yrs, 30mcg/0.3mL dose 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 APRN - [facility] [employer] Work Phone: [facility] [email or web address] Work Phone: 11-27-2019 Hepatitis B vaccine (recombinant), CpG adjuvanted 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 CHOCOLATIER - [employer] Work Phone: [facility] [email or web address] Work Phone: 11-27-2019 tetanus toxoid, redu gordon diphtheria toxoid, and acellular pertussis vaccine, adsorbed 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 CHOCOLATIER - [employer] Work Phone: [facility] [email or web address] Work Phone: 03-27-2019 hepatitis B vaccine, adult dosage 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 CHOCOLATIER - [employer] Work Phone: [facility] [email or web address] Work Phone: 03-27-2019 measles, mumps and rubella virus vaccine 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 [facility] Work Phone: [facility] [email or web address] Work Phone: 03-03-2019 measles, mumps and rubella virus vaccine 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 [facility] Work Phone: [facility] [email or web address] Work Phone: 02-25-2019 hepatitis B vaccine, adult dosage 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 [facility] CBIT A/S [facility] Payers Date Payer Category Payer Unknown [id number] 2022 Private Health Insurance [id number] 2018 Unknown BCBS [place] - [place] P PO xxxxxxxxxxxx 2018-Present [address] [place] [address] xxxxxxxxxxxx [id number] 2018 Unknown [id number] 1998 Unknown [id number] 1998 Unknown [id number] 1998 Unknown [id number] 1998 Unknown [id number] 1998 Unknown [id number] 1998 Unknown [id number] .[id number] 1998 Unknown [id number] Social History Date Type Detail Facility Start: 04-25-2016 End: 11-26-2018 Tobacco smoking status NHIS [facility] Start: 11-26-2018 Alcohol intake No Rachel [place], [place] Start: 1998 Sex Assigned At Not on file M [place], [place] Start: 04-25-2016 Tobacco use and exposure Smokeless tobacco non-user [employer] Phone: Start: 12-13-2021 Alcohol intake Current non-dr tester vibrator equipment of alcohol (finding) [employer] Phone: Start: 12-13-2021 History SDOH Financial 5 [employer] Phone: Start: 12-13-2021 History 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 1 [employer] Phone: Evaluation note Note Date & Type Note Facility Evaluation note Diagnosis Blood in stool, gustavo Blood in stool Gastroesophageal reflux disease without esophagitis Esophageal reflux Diarrhea, unspecified type Abdominal cramping Abdominal pain, unspecified site documented in this encounter [employer] Phone: Assessments Diagnosis Need for varicella vaccine Need for prophylactic vaccination and inoculation against varicella Advance Directives No Advanced Directives Records FoundDocuments on File Type Date Recorded Patient Vp Integration Expl anation Advance Directives and Living Will Power of Cosmetic Chemist Documents on File Type Date Recorded Patient Vp Integration Expl anation ACP-Advance Directive ACP-Power of Cosmetic Chemist Summary Purpose Family History No Family History Records FoundNo Family History Records Found Additional Source Comments Care Teams (unrecognized sec tion and content) Clearance Diver Relationship Specialty Start Date End Date 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, CHOCOLATIER - [employer] [address] [place] [address] PCP - General Nurse Practitioner 11/23/16 INFORMATION SOURCE (unrecogn ized section and content) DATE CREATED AUTHOR 06/02/2023 [facility] DATE CREATED AUTHOR AUTHOR'S ORGANIZ ATION 09/22/2023 [facility] EPIC FOR RECORDS PERTAINING TO PATIENTS WHO ARE [...] BE BASED ON THE PRIMARY CLINICAL RECORDS. [facility]. provides no warranty or guarantee of the accuracy or completeness of information in this document.
[2023-09-23 11:31] VITALS: BP 127/71; PULSE 115
== END 2023-09-23 12:00 | disposition home or self-care (01) ==
LOC: US 07:25 → FBC 10:56
PROVIDERS: Visit Provider Obstetrics & Gynecology
DX: O99.280 Endocrine, nutritional and metabolic diseases complicating pregnancy, unspecified trimester (principal); Z3A.31 31 weeks gestation of pregnancy; E05.90 Thyrotoxicosis, unspecified without thyrotoxic crisis or storm
CPT/HCPCS: 76818

== ENCOUNTER 2023-09-27 08:10 | Outpatient (OUT) | payer BC, OTHER, SELFPAY ==
[2023-09-27 11:09] VITALS: BP 112/71; PULSE 96
[2023-09-27 11:49] VITALS: BP 115/71; PULSE 97
== END 2023-09-27 11:51 | disposition home or self-care (01) ==
LOC: FBCO 08:31 → FBC 11:00
PROVIDERS: Visit Provider Obstetrics & Gynecology
DX: O26.893 Other specified pregnancy related conditions, third trimester (principal)
CPT/HCPCS: 59025

== ENCOUNTER 2023-09-30 00:16 | Outpatient (OUT) | payer BC, OTHER, SELFPAY ==
--- OUTSIDE RECORDS SUMMARY | 2023-09-30 00:18 | XMS_ITS | CCD ---
Author Organization [facility] Care Team Providers Care Hspt Tutor Name Role Phone 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 Primary Care Provider TERRENCE WOLF Attending Unavailable ARPIT PARKEH Primary Care Unavailable ARPIT PAREKH Primary Care [...] 05-30-2023 Abs. Basophil 0.01 k/uL Normal 0.00-0.20 [facility] Comment on above: Performed By: #### C DP, CP #### [facility] [address] [place] [address] Folding Machine Operator: Mike Forde MD Abs.Imm.Granulocyte 0.01 k/uL Normal 0.00-0.30 [facility] Comment on above: Performed By: #### C DP, CP #### [facility] [address] [place] [address] Folding Machine Operator: Mike Forde MD Abs.Neutrophil (Seg) 6.24 k/uL Normal 2.5-7.0 [facility] Comment on above: Performed By: #### C DP, CP #### [facility] [address] [place] [address] Folding Machine Operator: Mike Forde MD Basophils/100 WBC (Bld) 0 % Normal 0-2 [facility] Comment on above: Performed By: #### C DP, CP #### [facility] [address] [place] [address] Folding Machine Operator: Mike Forde MD Eosinophils (Bld) [#/Vol] 0.00 10*3/uL Normal 0.00-0.40 [facility] Comment on above: Performed By: #### C DP, CP #### [facility] [address] [place] [address] Folding Machine Operator: Mike Forde MD Eosinophils/100 WBC (Bld) 0 % Normal 0-5 [facility] Comment on above: Performed By: #### C DP, CP #### [facility] [address] [place], [place] [phone] Folding Machine Operator: Mike Forde MD Erythrocyte distribution width (RBC) [Ratio] 11.9 % Low 12.1-15.2 [facility] Comment on above: Performed By: #### C DP, CP #### [facility] [address] [place] [id number] Folding Machine Operator: Mike Forde MD Hematocrit (Bld) [Volume fraction] 41.1 % Normal 36.0-46.0 [facility] Comment on above: Performed By: #### C DP, CP #### [facility] [address] [place] [address] Folding Machine Operator: Mike Forde MD Hemoglobin (Bld) [Mass/Vol] 14.5 g/dL Normal 12.0-16.0 [facility] Comment on above: Performed By: #### C DP, CP #### [facility] [address] [place], [place] [phone] Folding Machine Operator: Mike Forde MD Immature granulocytes/100 WBC (Bld) 0 % Normal 0-5 [facility] Comment on above: Performed By: #### C DP, CP #### [facility] [address] [place] [id number] Folding Machine Operator: Mike Forde MD Lymphocytes (Bld) [#/Vol] 1.74 10*3/uL Normal 1.00-4.80 [facility] Comment on above: Performed By: #### C DP, CP #### [facility] [address] [place] [address] Folding Machine Operator: Mike Forde MD Lymphocytes/100 WBC (Bld) 21 % Normal 15-40 [facility] Comment on above: Performed By: #### C DP, CP #### [facility] [address] [place] [id number] [phone] Folding Machine Operator: Mike Forde MD MCH (RBC) [Entitic mass] 29.2 pg Normal 26.0-34.0 [facility] Comment on above: Performed By: #### C DP, CP #### [facility] [address] [place] [address] Folding Machine Operator: Mike Forde MD MCHC (RBC) [Mass/Vol] 35.3 g/dL Normal 31.0-37.0 [facility] Comment on above: Performed By: #### C DP, CP #### [facility] [address] [place] [address] Folding Machine Operator: Mike Forde MD MCV (RBC) [Entitic vol] 82.9 fL Normal 80.0-100.0 [facility] Comment on above: Performed By: #### C DP, CP #### [facility] [address] [place] [address] Folding Machine Operator: Mike Forde MD Monocytes (Bld) [#/Vol] 0.50 10*3/uL Normal 0.00-1.00 [facility] Comment on above: Performed By: #### C DP, CP #### [facility] [address] [place] [address] Folding Machine Operator: Mike Forde MD Monocytes/100 WBC (Bld) 6 % Normal 4-8 [facility] Comment on above: Performed By: #### C DP, CP #### [facility] [address] [place] [address] Folding Machine Operator: Mike Forde MD Neutrophil (Seg) 73 % Normal 47-75 [facility] Comment on above: Performed By: #### C DP, CP #### [facility] [address] [place] [address] Folding Machine Operator: Mike Forde MD Platelet mean volume (Bld) [Entitic vol] 10.4 fL Normal 6.0-12.0 [facility] Comment on above: Performed By: #### C DP, CP #### [facility] [address] [place] [address] Folding Machine Operator: Mike Forde MD Platelets (Bld) [#/Vol] 227 10*3/uL Normal 140-450 [facility] Comment on above: Performed By: #### C DP, CP #### [facility] [address] [place] [address] Folding Machine Operator: Mike Forde MD RBC (Bld) [#/Vol] 4.96 10*6/uL Normal 4.00-5.20 [facility] Comment on above: Performed By: #### C DP, CP #### [facility] [address] [place] [address] Folding Machine Operator: Mike Forde MD WBC (Bld) [#/Vol] 8.5 10*3/uL Normal 3.5-11.0 [facility] Comment on above: Performed By: #### C DP, CP #### [facility] [address] [place] [address] Folding Machine Operator: Mike Forde MD Comp Metabolic Profon 2022 Albumin [Mass/Vol] 4.2 g/dL Normal 3.5-5.2 [facility] Comment on above: Performed By: #### C DP, CP #### [facility] [address] [place] [address] Folding Machine Operator: Mike Forde MD Alkaline Phos 48 U/L Normal 35-104 [facility] Comment on above: Performed By: #### C DP, CP #### [facility] [address] [place] [address] Folding Machine Operator: Mike Forde MD ALT [Catalytic activity/Vol] 12 U/L Normal 5-33 [facility] Comment on above: Performed By: #### C DP, CP #### [facility] [address] [place] [address] Folding Machine Operator: Mike Forde MD Anion gap [Moles/Vol] 15 mmol/L Normal 9-17 [facility] Comment on above: Performed By: #### C DP, CP #### [facility] [address] [place] [address] Folding Machine Operator: Mike Forde MD AST [Catalytic activity/Vol] 11 U/L Normal <32 [facility] Comment on above: Performed By: #### C DP, CP #### [facility] [address] [place] [address] Folding Machine Operator: Mike Forde MD Bilirubin [Mass/Vol] mg/dL Low 0.3-1.2 [facility] Comment on above: Performed By: #### C DP, CP #### [facility] [address] [place] [address] Folding Machine Operator: Mike Forde MD BUN/CRE Ratio 14 Normal 9-20 [facility] Comment on above: Performed By: #### C DP, CP #### [facility] [address] [place] [address] Folding Machine Operator: Mike Forde MD Calcium [Mass/Vol] 9.7 mg/dL Normal 8.6-10.4 [facility] Comment on above: Performed By: #### C DP, CP #### [facility] [address] [place] [address] Folding Machine Operator: Mike Forde MD Chloride [Moles/Vol] 101 mmol/L Normal 98-107 [facility] Comment on above: Performed By: #### C DP, CP #### [facility] [address] [place], [place] [phone] Folding Machine Operator: Mike Forde MD CO2 [Moles/Vol] 22 mmol/L Normal 20-31 [facility] Comment on above: Performed By: #### C DP, CP #### [facility] [address] [place], [place] [phone] Folding Machine Operator: Mike Forde MD Creatinine [Mass/Vol] 0.5 mg/dL Normal 0.5-0.9 [facility] Comment on above: Performed By: #### C DP, CP #### [facility] [address] [place], [place] [phone] Folding Machine Operator: Mike Forde MD GFR/1.73 sq M.predicted among non-blacks MDRD (S/P/Bld) [Vol rate/Area] mL/min/{1.73_m2} Normal >60 [facility] Comment on above: Result Comment: These results [...] Performed By: #### C DP, CP #### [facility] [address] [place], [place] [phone] Folding Machine Operator: Mike Forde MD Glucose [Mass/Vol] 90 mg/dL Normal 70-99 [facility] Comment on above: Performed By: #### C DP, CP #### [facility] [address] [place], [place] [phone] Folding Machine Operator: Mike Forde MD Potassium [Moles/Vol] 3.5 mmol/L Low 3.7-5.3 [facility] Comment on above: Performed By: #### C DP, CP #### [facility] [address] [place], [place] [id number] Folding Machine Operator: Mike Forde MD Protein [Mass/Vol] 7.5 g/dL Normal 6.4-8.3 [facility] Comment on above: Performed By: #### C DP, CP #### [facility] [address] [place], [place] [id number] Folding Machine Operator: Mike Forde MD Sodium [Moles/Vol] 138 mmol/L Normal 135-144 [facility] Comment on above: Performed By: #### C DP, CP #### [facility] [address] [place], [place] [phone] Folding Machine Operator: Mike Forde MD Urea nitrogen [Mass/Vol] 7 mg/dL Normal 6-20 [facility] Comment on above: Performed By: #### C DP, CP #### [facility] [address] [place], [place] [id number] Folding Machine Operator: Mike Forde MD Basic Metabolic Profon 04-16 Anion gap [Moles/Vol] 15 mmol/L Normal -17 [facility] Comment on above: Performed By: #### C DP, BMP #### [facility] [address] [place], [place] [phone] Folding Machine Operator: Mike Forde MD BUN/CRE Ratio 10 Normal -20 [facility] Comment on above: Performed By: #### C DP, BMP #### [facility] [address] [place], [place] [phone] Folding Machine Operator: Mike Forde MD Calcium [Mass/Vol] 10.2 mg/dL Normal 8.6-10.4 [facility] Comment on above: Performed By: #### C DP, BMP #### [facility] [address] [place], [place] [phone] Folding Machine Operator: Mike Forde MD Chloride [Moles/Vol] 98 mmol/L Normal 98-107 [facility] Comment on above: Performed By: #### C DP, BMP #### [facility] [address] [place], [place] [phone] Folding Machine Operator: Mike Forde MD CO2 [Moles/Vol] 22 mmol/L Normal 20-31 [facility] Comment on above: Performed By: #### C DP, BMP #### [facility] [address] [place], [place] [phone] Folding Machine Operator: Mike Forde MD Creatinine [Mass/Vol] 0.7 mg/dL Normal 0.5-0.9 [facility] Comment on above: Performed By: #### C DP, BMP #### [facility] [address] [place] [address] Folding Machine Operator: Mike Forde MD GFR/1.73 sq M.predicted among non-blacks MDRD (S/P/Bld) [Vol rate/Area] mL/min/{1.73_m2} Normal >60 [facility] Comment on above: Result Comment: These results [...] Performed By: #### C DP, BMP #### [facility] [address] [place], [place] [phone] Folding Machine Operator: Mike Forde MD Glucose [Mass/Vol] 113 mg/dL High 70-99 [facility] Comment on above: Performed By: #### C DP, BMP #### [facility] [address] [place], [place] [id number] Folding Machine Operator: Mike Forde MD Potassium [Moles/Vol] 3.4 mmol/L Low 3.7-5.3 [facility] Comment on above: Performed By: #### C DP, BMP #### [facility] [address] [place], [place] [id number] Folding Machine Operator: Mike Forde MD Sodium [Moles/Vol] 135 mmol/L Normal 135-144 [facility] Comment on above: Performed By: #### C DP, BMP #### [facility] [address] [place], [place] [phone] Folding Machine Operator: Mike Forde MD Urea nitrogen [Mass/Vol] 7 mg/dL Normal 6-20 [facility] Comment on above: Performed By: #### C DP, BMP #### [facility] [address] [place], [place] [phone] Folding Machine Operator: Mike Forde MD CBC with Diffon 04-16-2023 Abs. Basophil 0.03 k/uL Normal 0.00-0.20 [facility] Comment on above: Performed By: #### C DP, BMP #### [facility] [address] [place] [phone] Folding Machine Operator: Mike Forde MD Abs.Imm.Granulocyte 0.02 k/uL Normal 0.00-0.30 [facility] Comment on above: Performed By: #### C DP, BMP #### [facility] [address] [place], [place] [phone] Folding Machine Operator: Mike Forde MD Abs.Neutrophil (Seg) 7.51 k/uL High 2.5-7.0 [facility] Comment on above: Performed By: #### C DP, BMP #### [facility] [address] [place], [place] [id number] Folding Machine Operator: Mike Forde MD Basophils/100 WBC (Bld) 0 % Normal 0-2 [facility] Comment on above: Performed By: #### C DP, BMP #### [facility] [address] [place], [place] [phone] Folding Machine Operator: Mike Forde MD Eosinophils (Bld) [#/Vol] 0.03 10*3/uL Normal 0.00-0.40 [facility] Comment on above: Performed By: #### C DP, BMP #### [facility] [address] [place], [place] [phone] Folding Machine Operator: Mike Forde MD Eosinophils/100 WBC (Bld) 0 % Normal 0-5 [facility] Comment on above: Performed By: #### C DP, BMP #### [facility] [address] [place] [address] Folding Machine Operator: Mike Forde MD Erythrocyte distribution width (RBC) [Ratio] 11.8 % Low 12.1-15.2 [facility] Comment on above: Performed By: #### C DP, BMP #### [facility] [address] [place] [phone] Folding Machine Operator: Mike Forde MD Hematocrit (Bld) [Volume fraction] 43.4 % Normal 36.0-46.0 [facility] Comment on above: Performed By: #### C DP, BMP #### [facility] [address] [place] [id number] Folding Machine Operator: Mike Forde MD Hemoglobin (Bld) [Mass/Vol] 15.5 g/dL Normal 12.0-16.0 [facility] Comment on above: Performed By: #### C DP, BMP #### [facility] [address] [place] [id number] Folding Machine Operator: Mike Forde MD Immature granulocytes/100 WBC (Bld) 0 % Normal 0-5 [facility] Comment on above: Performed By: #### C DP, BMP #### [facility] [address] [place] [id number] Folding Machine Operator: Mike Forde MD Lymphocytes (Bld) [#/Vol] 2.33 10*3/uL Normal 1.00-4.80 [facility] Comment on above: Performed By: #### C DP, BMP #### [facility] [address] [place] [address] Folding Machine Operator: Mike Forde MD Lymphocytes/100 WBC (Bld) 22 % Normal 15-40 [facility] Comment on above: Performed By: #### C DP, BMP #### [facility] [address] [place] [id number] Folding Machine Operator: Mike Forde MD MCH (RBC) [Entitic mass] 28.9 pg Normal 26.0-34.0 [facility] Comment on above: Performed By: #### C DP, BMP #### [facility] [address] [place] [phone] Folding Machine Operator: Mike Forde MD MCHC (RBC) [Mass/Vol] 35.7 g/dL Normal 31.0-37.0 [facility] Comment on above: Performed By: #### C DP, BMP #### [facility] [address] [place] [address] Folding Machine Operator: Mike Forde MD MCV (RBC) [Entitic vol] 80.8 fL Normal 80.0-100.0 [facility] Comment on above: Performed By: #### C DP, BMP #### [facility] [address] [place] [id number] Folding Machine Operator: Mike Forde MD Monocytes (Bld) [#/Vol] 0.88 10*3/uL Normal 0.00-1.00 [facility] Comment on above: Performed By: #### C DP, BMP #### [facility] [address] [place] [address] Folding Machine Operator: Mike Forde MD Monocytes/100 WBC (Bld) 8 % Normal 4-8 [facility] Comment on above: Performed By: #### C DP, BMP #### [facility] [address] [place] [address] Folding Machine Operator: Mike Forde MD Neutrophil (Seg) 70 % Normal 47-75 [facility] Comment on above: Performed By: #### C DP, BMP #### [facility] [address] [place] [address] Folding Machine Operator: Mike Forde MD Platelet mean volume (Bld) [Entitic vol] 10.5 fL Normal 6.0-12.0 [facility] Comment on above: Performed By: #### C DP, BMP #### [facility] [address] [place] [id number] Folding Machine Operator: Mike Forde MD Platelets (Bld) [#/Vol] 279 10*3/uL Normal 140-450 [facility] Comment on above: Performed By: #### C DP, BMP #### [facility] [address] [place] [id number] Folding Machine Operator: Mike Forde MD RBC (Bld) [#/Vol] 5.37 10*6/uL High 4.00-5.20 [facility] Comment on above: Performed By: #### C DP, BMP #### [facility] [address] [place] [id number] Folding Machine Operator: Mike Forde MD WBC (Bld) [#/Vol] 10.8 10*3/uL Normal 3.5-11.0 [facility] Comment on above: Performed By: #### C DP, BMP #### [facility] [address] [place] [address] Folding Machine Operator: Mike Forde MD CBC with Auto Differentialon 12-13-2021 Absolute Eos # 0.00 [facility] Absolute Lymph # 1.90 [facility] Absolute [place] # 0.50 [facility] Basophils (Bld) [#/Vol] 0.00 10*3/uL [facility] Basophils/100 WBC (Bld) 0 % 0 - 2 % [facility] Differential Type YES [facility] Eosinophils/100 WBC (Bld) 0 % 0 [...] g/dL 31 - 37 g/dL B ON [facility] MCV (RBC) [Entitic vol] 86.2 fL [...] [facility] WBC (Bld) [#/Vol] 9.1 10*3/uL [facility] Comprehensive Metabolic Pane davi 12-13-2021 Albumin [Mass/Vol] 4.3 g/dL 3.5 - 5.2 g/dL [facility] ALP (Bld) [Catalytic activity/Vol] 77 U/L [...] [Moles/Vol] 25 mmol/L 20 - 31 mmol/L [facility] Creatinine [Mass/Vol] 0.77 mg/dL 0.50 - 0.90 [...] body mass. Additional eGFR calculator available at: http://www.[employer]/multiple_crcl_2012.htm Glucose [Mass/Vol] 93 mg/dL 70 - 99 mg/dL [facility] Potassium [Moles/Vol] 4.2 mmol/L 3.7 - 5.3 mmol /L [facility] Sodium [Moles/Vol] 138 mmol/L 135 - 144 mmol/L [facility] Urea nitrogen (BldV) [Mass/Vol] 9 mg/dL 6 - 20 mg/dL [facility] Urea nitrogen/Creatinine (Bld) [Mass ratio] 12 [facility] Encounters Encounter Date Encounter Type Care Provider Facility Start: 09-21-2023 End: 09-21-2023 ambulatory NAHED SALINAS Not Available Start: 09-07-2023 End: 09-07-2023 ambulatory ALICIA CLANCY Not Available Start: 08-09-2023 End: 08-09-2023 ambulatory NAHED MICHAELO Not Available Start: 07-12-2023 End: 07-12-2023 ambulatory ALICIA CLANCY Not Available Start: 06-14-2023 End: 06-14-2023 ambulatory NAHED MICHAELO Not Available Start: 05-30-2023 End: 05-31-2023 Emergency department patient visit TERRENCE WOLF [facility] Start: 04-16-2023 End: 04-17-2023 Emergency department patient visit ARPIT PAREKH [facility] Start: 12-13-2021 End: 12-13-2021 Subsequent hospital visit by physician Arpit Leblanc CNP Work Phone: [email or web address] Comment on above: Blood in stool, zeina pardo; Gastroesophageal reflux disease without esophagitis; Diarrhea, unspecified type; Abdominal cramping Start: 03-01-2019 End: 03-01-2019 Subsequent hospital visit by physician 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 [facility] Comment on above: Need for varicella [...] Office Visit Family Medicine 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, DO Leblanc CNP [address] [place] [id number] [facility] Start: 2019 Screening for malign ant neoplasm of cervix Pap smear [facility] Start: 03-10-2019 Influenza vaccination Flu vaccine (# 1) [place], [place] Start: 2017 DTaP/Tdap/Td vaccine (1 - Tdap) DTaP/Tdap/Td vaccine (1 - Tdap) [place] Start: 2016 Hepatitis C screening Hepatitis C sc reen [facility] Start: 2014 Chlamydia screen Chlamydia screen [place], [place] Start: 2014 Screening for Chlamy nathalie trachomatis Chlamydia screen [facility] Start: 2013 HIV screen HIV screen [place], [place] Start: 2013 HIV screening HIV screen [facility] Start: 2013 HPV vaccine (1 - Fem dana 3-dose series) HPV vaccine (1 - Female 3-dose series) [place], [place] Start: 2011 Varicella Vaccine (1 of 2 - 13+ 2-dose series) Varicella Vaccine (1 of 2 - 13+ 2-dose series) [place] Start: 2009 HPV vaccine (1 - [...] gustavo 1 Occurrences starting 12/13/2021 until 12/13/2021 [facility] Work Phone: Comment on above: 1 Occurrences starti ng 12/13/2021 until 12/13/2021 End: 12-13-2021 Celiac Disease Panel Celiac Disease Panel Lab Routine Diarrhea, unspecified type Abdominal cramping 1 Occurrences starting 12/13/2021 until 12/13/2021 [facility] [employer] Phone: Comment on above: 1 Occurrences starti ng 12/13/2021 until 12/13/2021 End: 12-13-2021 C[employer] [employer] Phone: Comment on above: Once for 1 Occurrenc es starting 12/13/2021 until 12/13/2021 End: 12-13-2021 Comprehensive metabolic 2000 panel - Serum or Plasma Comprehensive Metabolic Panel Lab Routine Blood in stool, gustavo Gastroesophageal reflux disease without esophagitis 1 Occurrences starting 12/13/2021 until 12/13/2021 [employer] Work Phone: Comment on above: 1 Occurrences starti ng 12/13/2021 until 12/13/2021 End: 03-01-2019 Varicella Zoster Antibody, IgG Varicella Zoster Antibody, IgG Lab Routine Need for varicella vaccine 1 Occurrences starting 03/01/2019 until 03/01/2019 [place] Comment on above: 1 Occurrences starti ng 03/01/2019 until 03/01/2019 Varicella Zoster Antibody, IgG Varicella Zoster Antibody, IgG Lab Routine Need for varicella vaccine 03/01/2019 11:50 AM EDT [place] Immunizations Immunization Date Immunization Notes Care Provider Fa uli 09-18-2021 COVID-19, Pfizer Pur ple top, DILUTE for use, 12+ yrs, 30mcg/0.3mL dose 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 APRN - [employer] Work Phone: [facility] [employer] [facility] Phone: 11-27-2019 Hepatitis B vaccine (recombinant), CpG adjuvanted 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 APRN [employer] Work Phone: [facility] [employer] Work Phone: 11-27-2019 tetanus toxoid, redu gordon diphtheria toxoid, and acellular pertussis vaccine, adsorbed 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 APRN [employer] Work Phone: [facility] [employer] Phone: 03-27-2019 hepatitis B vaccine, adult dosage 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 APRN - [employer] Work Phone: [employer] [employer] Work Phone: 03-27-2019 measles, mumps and rubella virus vaccine 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 OR DAMAGE 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 SPECIALIST - [facility] Work Phone: [employer] Work Phone: 03-03-2019 measles, mumps and rubella virus vaccine 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 DISASTER OR DAMAGE CONTROL SPECIALIST - [facility] Work Phone: [employer] Work Phone: 02-25-2019 hepatitis B vaccine, adult dosage 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 [employer] Payers Date Payer Category Payer Unknown [id number] 2022 Private Health Insurance [id number] 2018 Unknown BCBS [place] - [place] P PO xxxxxxxxxxxx 2018-Present [address] [place] [address] xxxxxxxxxxxx [id number] 2018 Unknown [id number] 1998 Unknown [id number] 1998 Unknown [id number] 1998 Unknown [id number] 1998 Unknown [id number] 1998 Unknown [id number] 1998 Unknown [id number] 1998 Unknown [id number] Social History Date Type Detail Facility Start: 04-25-2016 End: 11-26-2018 Tobacco smoking status NHIS Never smoker [place] Start: 11-26-2018 Alcohol intake No Rachel [place], [place] Start: 1998 [facility] [place] [place] Start: 04-25-2016 Tobacco use and exposure Smokeless tobacco non-user [employer] Phone: Start: 12-13-2021 Alcohol intake 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) [employer] Phone: Start: 12-13-2021 History SDOH Financial 5 [employer] Phone: Start: 12-13-2021 History 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 1 [employer] Phone: Evaluation note Note Date & Type Note Facility Evaluation note Diagnosis Blood in stool, gustavo Blood in stool Gastroesophageal reflux disease without esophagitis Esophageal reflux Diarrhea, unspecified type Abdominal cramping Abdominal pain, unspecified site documented in this [employer] Phone: Assessments Diagnosis Need for varicella vaccine Need for prophylactic vaccination and inoculation against varicella Advance Directives No Advanced Directives Records FoundDocuments on File Type Date Recorded Patient Shield Operator Expl anation Advance Directives and Living Will Power of Livestock Nutritionist Documents on File Type Date Recorded Patient Shield Operator Expl anation ACP-Advance Directive ACP-Power of Livestock Nutritionist Summary Purpose Family History No Family History Records FoundNo Family History Records Found Additional Source Comments Care Teams (unrecognized sec tion and content) Hspt Tutor Relationship Specialty Start Date End Date 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, DISASTER OR DAMAGE CONTROL SPECIALIST - [employer] [address] [place] [address] PCP - General Nurse Practitioner 11/23/16 INFORMATION SOURCE (unrecogn ized section and content) DATE CREATED AUTHOR 06/02/2023 [facility] DATE CREATED AUTHOR AUTHOR'S ORGANIZ ATION 09/22/2023 [facility] FOR RECORDS PERTAINING TO PATIENTS WHO [...] PRIMARY CLINICAL RECORDS. [facility]. provides no warranty or guarantee of the accuracy or completeness of information in this document.
--- NOTE | 2023-09-30 08:52 | US_ITS ---
[address] [address] Patient Name: DANIEL ARMENDARIZ MRN: [id number] date: 2000 Sex: F Assigned Patient Location: US Current Patient Location: Accession/Order Number: [id number] Exam Date: 09/30/2023 08:58 Report Date: 10/02/2023 07:26 At the request of: NAHED SALINAS Procedure: US OB BPP w non-stress EXAMINATION: US OB BPP w non-stress HISTORY: Hyperthyroidism affecting COMPARISON: No relevant comparison available. TECHNIQUE: Ultrasound biophysical profile was performed in the radiology department. FINDINGS: BREATHING MOVEMENTS: 2.0 GROSS BODY MOVEMENTS: 2.0 TONE: 2.0 QUALITATIVE AMNIOTIC FLUID VOLUME: 2.0 PRESENTATION: CEPHALIC HEART RATE: 126.2 bpm H.B./min AMNIOTIC FLUID VOLUME: 13.7 cm cm GESTATIONAL AGE: 32 weeks 0 days CONCLUSION: Total biophysical profile score: 8.0 Electronically authenticated by: KENDALL KRISHNAN Date: 10/02/2023 07:26
[2023-09-30 09:19] VITALS: BP 132/62; PULSE 85
== END 2023-09-30 09:49 | disposition home or self-care (01) ==
LOC: US 00:17 → FBC 08:56
PROVIDERS: Visit Provider Obstetrics & Gynecology
DX: O99.280 Endocrine, nutritional and metabolic diseases complicating pregnancy, unspecified trimester (principal); E05.90 Thyrotoxicosis, unspecified without thyrotoxic crisis or storm; Z3A.32 32 weeks gestation of pregnancy
CPT/HCPCS: 76818

== ENCOUNTER 2023-10-04 07:12 | Outpatient (OUT) | payer BC, OTHER, SELFPAY ==
--- OUTSIDE RECORDS SUMMARY | 2023-10-04 07:17 | XMS_ITS | CCD ---
Author Organization [facility] Care Team Providers Care [employer] Driver Name Role Phone 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 [facility] [...] 05-30-2023 Abs. Basophil 0.01 k/uL Normal 0.00-0.20 [facility] Comment on above: Performed By: #### C DP, CP #### [facility] [address] [place] [address] [employer]ber Framer: Mike Forde MD Abs.Imm.Granulocyte 0.01 k/uL Normal 0.00-0.30 [facility] Comment on above: Performed By: #### C DP, CP #### [facility] [address] [place] [address] [employer]ber Framer: Mike Forde MD Abs.Neutrophil (Seg) 6.24 k/uL Normal 2.5-7.0 [facility] Comment on above: Performed By: #### C DP, CP #### [facility] [address] [place] [address] [employer] Framer: Mike Forde MD Basophils/100 WBC (Bld) 0 % Normal 0-2 [facility] Comment on above: Performed By: #### C DP, CP #### [facility] [address] [place] [address] [employer] Framer: Mike Forde MD Eosinophils (Bld) [#/Vol] 0.00 10*3/uL Normal 0.00-0.40 [facility] Comment on above: Performed By: #### C DP, CP #### [facility] [address] [place] [address] [employer]amer: Mike Forde MD Eosinophils/100 WBC (Bld) 0 % Normal 0-5 [facility] Comment on above: Performed By: #### C DP, CP #### [facility] [address] [place], [place] [id number] [employer]amer: Mike Forde MD Erythrocyte distribution width (RBC) [Ratio] 11.9 % Low 12.1-15.2 [facility] Comment on above: Performed By: #### C DP, CP #### [facility] [address] [place] [id number] [employer] Framer: Mike Forde MD Hematocrit (Bld) [Volume fraction] 41.1 % Normal 36.0-46.0 [facility] Comment on above: Performed By: #### C DP, CP #### [facility] [address] [place] [address] [employer] Framer: Mike Forde MD Hemoglobin (Bld) [Mass/Vol] 14.5 g/dL Normal 12.0-16.0 [facility] Comment on above: Performed By: #### C DP, CP #### [facility] [address] [place], [place] [id number] [employer] Framer: Mike Forde MD Immature granulocytes/100 WBC (Bld) 0 % Normal 0-5 [facility] Comment on above: Performed By: #### C DP, CP #### [facility] [address] [place] [id number] Timber Framer: Mike Forde MD Lymphocytes (Bld) [#/Vol] 1.74 10*3/uL Normal 1.00-4.80 [facility] Comment on above: Performed By: #### C DP, CP #### [facility] [address] [place] [address] Timber Framer: Mike Forde MD Lymphocytes/100 WBC (Bld) 21 % Normal 15-40 [facility] Comment on above: Performed By: #### C DP, CP #### [facility] [address] [place] [phone] (721 Tim[employer]amer: Mike Forde MD MCH (RBC) [Entitic mass] 29.2 pg Normal 26.0-34.0 [facility] Comment on above: Performed By: #### C DP, CP #### [facility] [address] [place] [address] Timber Framer: Mike Forde MD MCHC (RBC) [Mass/Vol] 35.3 g/dL Normal 31.0-37.0 [facility] Comment on above: Performed By: #### C DP, CP #### [facility] [address] [place] [address] [employer]ber Framer: Mike Forde MD MCV (RBC) [Entitic vol] 82.9 fL Normal 80.0-100.0 [facility] Comment on above: Performed By: #### C DP, CP #### [facility] [address] [place] [address] Timber Framer: Mike Forde MD Monocytes (Bld) [#/Vol] 0.50 10*3/uL Normal 0.00-1.00 [facility] Comment on above: Performed By: #### C DP, CP #### [facility] [address] [place] [address] Timber Framer: Mike Forde MD Monocytes/100 WBC (Bld) 6 % Normal 4-8 [facility] Comment on above: Performed By: #### C DP, CP #### [facility] [address] [place] [address] Timber Framer: Mike Forde MD Neutrophil (Seg) 73 % Normal 47-75 [facility] Comment on above: Performed By: #### C DP, CP #### [facility] [address] [place] [address] Timber Framer: Mike Forde MD Platelet mean volume (Bld) [Entitic vol] 10.4 fL Normal 6.0-12.0 [facility] Comment on above: Performed By: #### C DP, CP #### [facility] [address] [place] [address] Timber Framer: Mike Forde MD Platelets (Bld) [#/Vol] 227 10*3/uL Normal 140-450 [facility] Comment on above: Performed By: #### C DP, CP #### [facility] [address] [place] [address] Timber Framer: Mike Forde MD RBC (Bld) [#/Vol] 4.96 10*6/uL Normal 4.00-5.20 [facility] Comment on above: Performed By: #### C DP, CP #### [facility] [address] [place] [address] Timber Framer: Mike Forde MD WBC (Bld) [#/Vol] 8.5 10*3/uL Normal 3.5-11.0 [facility] Comment on above: Performed By: #### C DP, CP #### [facility] [address] [place] [address] Timber Framer: Mike Forde MD Comp Metabolic Profon 2022 Albumin [Mass/Vol] 4.2 g/dL Normal 3.5-5.2 [facility] Comment on above: Performed By: #### C DP, CP #### [facility] [address] [place] [address] Timber Framer: Mike Forde MD Alkaline Phos 48 U/L Normal 35-104 [facility] Comment on above: Performed By: #### C DP, CP #### [facility] [address] [place] [address] Timber Framer: Mike Forde MD ALT [Catalytic activity/Vol] 12 U/L Normal 5-33 [facility] Comment on above: Performed By: #### C DP, CP #### [facility] [address] [place] [address] Timber Framer: Mike Forde MD Anion gap [Moles/Vol] 15 mmol/L Normal 9-17 [facility] Comment on above: Performed By: #### C DP, CP #### [facility] [address] [place] [address] Timber Framer: Mike Forde MD AST [Catalytic activity/Vol] 11 U/L Normal <32 [facility] Comment on above: Performed By: #### C DP, CP #### [facility] [address] [place] [address] Timber Framer: Mike Forde MD Bilirubin [Mass/Vol] mg/dL Low 0.3-1.2 [facility] Comment on above: Performed By: #### C DP, CP #### [facility] [address] [place] [address] Timber Framer: Mike Forde MD BUN/CRE Ratio 14 Normal 9-20 [facility] Comment on above: Performed By: #### C DP, CP #### [facility] [address] [place] [address] Timber Framer: Mike Forde MD Calcium [Mass/Vol] 9.7 mg/dL Normal 8.6-10.4 [facility] Comment on above: Performed By: #### C DP, CP #### [facility] [address] [place] [address] [employer]ber Framer: Mike Forde MD Chloride [Moles/Vol] 101 mmol/L Normal 98-107 [facility] Comment on above: Performed By: #### C DP, CP #### [facility] [address] [place], [place] [phone] Tim[employer] Framer: Mike Forde MD CO2 [Moles/Vol] 22 mmol/L Normal 20-31 [facility] Comment on above: Performed By: #### C DP, CP #### [facility] [address] [place], [place] [phone] Tim[employer] Framer: Mike Forde MD Creatinine [Mass/Vol] 0.5 mg/dL Normal 0.5-0.9 [facility] Comment on above: Performed By: #### C DP, CP #### [facility] [address] [place], [place] [phone] [employer] Framer: Mike Forde MD GFR/1.73 sq M.predicted among non-blacks MDRD (S/P/Bld) [Vol rate/Area] mL/min/{1.73_m2} Normal >60 [facility] Comment on above: Result Comment: These [...] Performed By: #### C DP, CP #### [facility] [address] [place], [place] [phone] Timber Framer: Mike Forde MD Glucose [Mass/Vol] 90 mg/dL Normal 70-99 [facility] Comment on above: Performed By: #### C DP, CP #### [facility] [address] [place], [place] [phone] Timber Framer: Mike Forde MD Potassium [Moles/Vol] 3.5 mmol/L Low 3.7-5.3 [facility] Comment on above: Performed By: #### C DP, CP #### [facility] [address] [place], [place] [phone] Tim[employer]amer: Mike Forde MD Protein [Mass/Vol] 7.5 g/dL Normal 6.4-8.3 [facility] Comment on above: Performed By: #### C DP, CP #### [facility] [address] [place], [place] [phone] [employer] Framer: Mike Forde MD Sodium [Moles/Vol] 138 mmol/L Normal 135-144 [facility] Comment on above: Performed By: #### C DP, CP #### [facility] [address] [place], [place] [phone] [employer] Framer: Mike Forde MD Urea nitrogen [Mass/Vol] 7 mg/dL Normal 6-20 [facility] Comment on above: Performed By: #### C DP, CP #### [facility] [address] [place], [place] [phone] Tim[employer] Framer: Mike Forde MD Basic Metabolic Profon 04-16 Anion gap [Moles/Vol] 15 mmol/L Normal -17 [facility] Comment on above: Performed By: #### C DP, BMP #### [facility] [address] [place], [place] [phone] Tim[employer] Framer: Mike Forde MD BUN/CRE Ratio 10 Normal -20 [facility] Comment on above: Performed By: #### C DP, BMP #### [facility] [address] [place], [place] [phone] [employer]amer: Mike Forde MD Calcium [Mass/Vol] 10.2 mg/dL Normal 8.6-10.4 [facility] Comment on above: Performed By: #### C DP, BMP #### [facility] [address] [place], [place] [phone] [employer] Framer: Mike Fodre MD Chloride [Moles/Vol] 98 mmol/L Normal 98-107 [facility] Comment on above: Performed By: #### C DP, BMP #### [facility] [address] [place] [address] [place], [place] [phone] Timber Framer: Mike Forde MD CO2 [Moles/Vol] 22 mmol/L Normal 20-31 [facility] Comment on above: Performed By: #### C DP, BMP #### [facility] [address] [place], [place] [phone] [employer]amer: Mike Forde MD Creatinine [Mass/Vol] 0.7 mg/dL Normal 0.5-0.9 [facility] Comment on above: Performed By: #### C DP, BMP #### [facility] [address] [place] [address] [employer] Framer: Mike Forde MD GFR/1.73 sq M.predicted among non-blacks MDRD (S/P/Bld) [Vol rate/Area] mL/min/{1.73_m2} Normal >60 [facility] Comment on above: Result Comment: These [...] Performed By: #### C DP, BMP #### [facility] [address] [place], [place] [phone] Tim[employer]amer: Mike Forde MD Glucose [Mass/Vol] 113 mg/dL High 70-99 [facility] Comment on above: Performed By: #### C DP, BMP #### [facility] [address] [place], [place] [phone] [employer] Framer: Mike Forde MD Potassium [Moles/Vol] 3.4 mmol/L Low 3.7-5.3 [facility] Comment on above: Performed By: #### C DP, BMP #### [facility] [address] [place], [place] [address] Timber Framer: Mike Forde MD Sodium [Moles/Vol] 135 mmol/L Normal 135-144 [facility] Comment on above: Performed By: #### C DP, BMP #### [facility] [address] [place], [place] [phone] [employer]amer: Mike Forde MD Urea nitrogen [Mass/Vol] 7 mg/dL Normal 6-20 [facility] Comment on above: Performed By: #### C DP, BMP #### [facility] [address] [place], [place] [phone] Timber Framer: Mike Forde MD CBC with Diffon 04-16-2023 Abs. Basophil 0.03 k/uL Normal 0.00-0.20 [facility] Comment on above: Performed By: #### C DP, BMP #### [facility] [address] [place] [phone] Timber Framer: Mike Forde MD Abs.Imm.Granulocyte 0.02 k/uL Normal 0.00-0.30 [facility] Comment on above: Performed By: #### C DP, BMP #### [facility] [address] [place], [place] [phone] Tim[employer] Framer: Mike Forde MD Abs.Neutrophil (Seg) 7.51 k/uL High 2.5-7.0 [facility] Comment on above: Performed By: #### C DP, BMP #### [facility] [address] [place], [place] [phone] Timber Framer: Mike Forde MD Basophils/100 WBC (Bld) 0 % Normal 0-2 [facility] Comment on above: Performed By: #### C DP, BMP #### [facility] [address] [place], [place] [phone] Timber Framer: Mike Forde MD Eosinophils (Bld) [#/Vol] 0.03 10*3/uL Normal 0.00-0.40 [facility] Comment on above: Performed By: #### C DP, BMP #### [facility] [address] [place], [place] [phone] Timber Framer: Mike Forde MD Eosinophils/100 WBC (Bld) 0 % Normal 0-5 [facility] Comment on above: Performed By: #### C DP, BMP #### [facility] [address] [place] [address] Timber Framer: Mike Forde MD Erythrocyte distribution width (RBC) [Ratio] 11.8 % Low 12.1-15.2 [facility] Comment on above: Performed By: #### C DP, BMP #### [facility] [address] [place] [phone] Timber Framer: Mike Forde MD Hematocrit (Bld) [Volume fraction] 43.4 % Normal 36.0-46.0 [facility] Comment on above: Performed By: #### C DP, BMP #### [facility] [address] [place] [phone] Tim[employer] Framer: Mike Forde MD Hemoglobin (Bld) [Mass/Vol] 15.5 g/dL Normal 12.0-16.0 [facility] Comment on above: Performed By: #### C DP, BMP #### [facility] [address] [place] [phone] Timber Framer: Mike Forde MD Immature granulocytes/100 WBC (Bld) 0 % Normal 0-5 [facility] Comment on above: Performed By: #### C DP, BMP #### [facility] [address] [place] [phone] Timber Framer: Mike Forde MD Lymphocytes (Bld) [#/Vol] 2.33 10*3/uL Normal 1.00-4.80 [facility] Comment on above: Performed By: #### C DP, BMP #### [facility] [address] [place] [address] Timber Framer: Mike Frode MD Lymphocytes/100 WBC (Bld) 22 % Normal 15-40 [facility] Comment on above: Performed By: #### C DP, BMP #### [facility] [address] [place] [phone] Timber Framer: Mike Forde MD MCH (RBC) [Entitic mass] 28.9 pg Normal 26.0-34.0 [facility] Comment on above: Performed By: #### C DP, BMP #### [facility] [address] [place] [phone] Timber Framer: Mike Forde MD MCHC (RBC) [Mass/Vol] 35.7 g/dL Normal 31.0-37.0 [facility] Comment on above: Performed By: #### C DP, BMP #### [facility] [address] [place] [address] Timber Framer: Mike Forde MD MCV (RBC) [Entitic vol] 80.8 fL Normal 80.0-100.0 [facility] Comment on above: Performed By: #### C DP, BMP #### [facility] [address] [place] [phone] Timber Framer: Mike Forde MD Monocytes (Bld) [#/Vol] 0.88 10*3/uL Normal 0.00-1.00 [facility] Comment on above: Performed By: #### C DP, BMP #### [facility] [address] [place] [address] Timber Framer: Mike Forde MD Monocytes/100 WBC (Bld) 8 % Normal 4-8 [facility] Comment on above: Performed By: #### C DP, BMP #### [facility] [address] [place] [address] Timber Framer: Mike Forde MD Neutrophil (Seg) 70 % Normal 47-75 [facility] Comment on above: Performed By: #### C DP, BMP #### [facility] [address] [place] [address] Timber Framer: Mike Forde MD Platelet mean volume (Bld) [Entitic vol] 10.5 fL Normal 6.0-12.0 [facility] Comment on above: Performed By: #### C DP, BMP #### [facility] [address] [place] [phone] Timber Framer: Mike Forde MD Platelets (Bld) [#/Vol] 279 10*3/uL Normal 140-450 [facility] Comment on above: Performed By: #### C DP, BMP #### [facility] [address] [place] [phone] Timber Framer: Mike Forde MD RBC (Bld) [#/Vol] 5.37 10*6/uL High 4.00-5.20 [facility] Comment on above: Performed By: #### C DP, BMP #### [facility] [address] [place] [phone] Timber Framer: Mike Forde MD WBC (Bld) [#/Vol] 10.8 10*3/uL Normal 3.5-11.0 [facility] Comment on above: Performed By: #### C DP, BMP #### [facility] [address] [place] [address] Timber Framer: Mike Forde MD CBC with Auto Differentialon 12-13-2021 Absolute Eos # 0.00 [facility] Absolute Lymph # 1.90 [facility] Absolute [place] # 0.50 [facility] Basophils (Bld) [#/Vol] 0.00 10*3/uL [facility] Basophils/100 WBC (Bld) 0 % 0 - 2 % [facility] Differential Type YES [facility] Eosinophils/100 WBC (Bld) 0 % 0 - 5 % [facility] Hematocrit (Bld) [Volume fraction] 43.5 % 36 - 46 % [facility] Hemoglobin (Bld) [Mass/Vol] 14.6 g/dL 12.0 - 16.0 g/dL [facility] Lymphocytes/100 WBC (Bld) 21 % 15 - 40 % [facility] MCH (RBC) [Entitic mass] 28.9 pg 26 - 34 pg [facility] MCHC (RBC) [Mass/Vol] 33.5 g/dL 31 - 37 g/dL B ON [facility] MCV (RBC) [Entitic vol] 86.2 fL 80 - 100 fL [facility] Monocytes/100 WBC (Bld) 5 % 4 - 8 % [facility] Platelet distribution width (Bld) [Ratio] 12.3 % 12.1 - 15.2 % [facility] Platelets (Bld) [#/Vol] 265 10*3/uL [facility] RBC (Bld) [#/Vol] 5.05 10*6/uL 4.0 - 5.2 m/uL B [facility] Segmented neutrophils/100 WBC (Bld) 74 % 47 - 75 % [facility] Segs Absolute 6.60 [facility] WBC (Bld) [#/Vol] 9.1 10*3/uL [facility] Comprehensive Metabolic Pane davi 12-13-2021 Albumin [Mass/Vol] 4.3 g/dL 3.5 - 5.2 g/dL [facility] ALP (Bld) [Catalytic activity/Vol] 77 U/L 35 - 104 U/L [facility] ALT [Catalytic activity/Vol] 23 U/L 5 - 33 U/L [facility] Anion gap [Moles/Vol] 11 mmol/L 9 - 17 mmol/L [facility] AST [Catalytic activity/Vol] 15 U/L <32 [facility] Bilirubin [Mass/Vol] 0.51 mg/dL 0.30 - 1.20 mg/dL [facility] Calcium [Mass/Vol] 9.6 mg/dL 8.6 - 10.4 mg/dL [facility] Chloride [Moles/Vol] 102 mmol/L 98 - 107 mmol/L [facility] CO2 [Moles/Vol] 25 mmol/L 20 - 31 mmol/L [facility] Creatinine [Mass/Vol] 0.77 mg/dL 0.50 - 0.90 mg/dL [facility] Free PSA/Total PSA [Mass fraction] 7.4 g/dL 6.4 - 8.3 g/dL [facility] GFR >60 >60 mL/min [facility] GFR Non- >60 >60 mL/min [facility] GFR/1.73 sq M.predicted MDRD (S/P/Bld) [Vol rate/Area] [facility] Comment on above: Average GFR for 20-2 9 years old: 116 mL/min/1.73sq m Chronic Kidney Disease: <60 mL/min/1.73sq m Kidney failure: <15 mL/min/1.73sq m eGFR calculated using average adult body mass. Additional eGFR calculator available at: http://www.[employer]/multiple_crcl_2012.htm Glucose [Mass/Vol] 93 mg/dL 70 - 99 mg/dL [facility] Potassium [Moles/Vol] 4.2 mmol/L 3.7 - 5.3 mmol /L [facility] Sodium [Moles/Vol] 138 mmol/L 135 - 144 mmol/L [facility] Urea nitrogen (BldV) [Mass/Vol] 9 mg/dL 6 - 20 mg/dL [facility] Urea nitrogen/Creatinine (Bld) [Mass ratio] 12 [facility] Encounters Encounter Date Encounter Type Care [...] Emergency department patient visit TERRENCE WOLF [facility] Start: 04-16-2023 End: 04-17-2023 Emergency department patient visit ARPIT PAREKH [facility] Start: 12-13-2021 End: 12-13-2021 Subsequent hospital visit by physician Arpit Leblanc CNP Work Phone: [email or web address] Comment on above: Blood in stool, zeina pardo; Gastroesophageal reflux disease without esophagitis; Diarrhea, unspecified type; Abdominal cramping Start: 03-01-2019 End: 03-01-2019 Subsequent hospital visit by physician 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 [facility] Comment on above: Need for varicella v accine Procedures Date Procedure Procedure Detail Performing Clinician Start: 12-13-2021 Comprehensive metabo lic panel Arpit Leblanc CNP Work Phone: Plan of Treatment Date Care Activity Detail Author Start: 11-26-2029 DTaP/Tdap/Td vaccine (3 - Td or Tdap) DTaP/Tdap/Td vaccine (3 - Td or Tdap) [facility] Start: 12-13-2022 Depression Screen Depression Screen [facility] Start: 03-14-2022 COVID-19 Vaccine (3 - Booster for Pfizer series) COVID-19 Vaccine (3 - Booster for Pfizer series) [facility] Start: 03-10-2022 Influenza vaccination Flu vaccine (S angelo Ended) [facility] Start: 01-11-2022 End: 01-11-2022 Patient encounter procedure 01/11/2022 Office Visit Family Medicine 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, DO Leblanc CNP [address] [place] [phone] [facility] [place] Start: 2019 Screening for malign ant neoplasm of cervix Pap smear [facility] Start: 03-10-2019 Influenza vaccination Flu vaccine (# 1) [place], [place] Start: 2017 DTaP/Tdap/Td vaccine (1 - Tdap) DTaP/Tdap/Td vaccine (1 - Tdap) [place], [place] Start: 2016 Hepatitis C screening Hepatitis C sc reen [facility] Start: 2014 Chlamydia screen Chlamydia screen [place], [place] Start: 2014 Screening for Chlamy nathalie trachomatis Chlamydia screen [facility] Start: 2013 HIV screen HIV screen [place], [place] Start: 2013 HIV screening HIV screen [facility] Start: 2013 HPV vaccine (1 - Fem dana 3-dose series) HPV vaccine (1 - Female 3-dose series) [place], [place] Start: 2011 Varicella Vaccine (1 of 2 - 13+ 2-dose series) Varicella Vaccine (1 of 2 - 13+ 2-dose series) [place], [place] Start: 2009 HPV vaccine (1 - 2-d ose series) HPV vaccine (1 - 2-dose series) [facility] Start: 1999 Varicella vaccine (1 of 2 - 2-dose childhood series) Varicella vaccine (1 of 2 - 2-dose childhood series) [facility] End: 12-13-2021 CBC W Auto Differential panel - Blood CBC with Auto Differential Lab Routine Diarrhea, unspecified type Blood in stool, gustavo 1 Occurrences starting 12/13/2021 until 12/13/2021 [facility] Work Phone: Comment on above: 1 Occurrences starti ng 12/13/2021 until 12/13/2021 End: 12-13-2021 Celiac Disease Panel Celiac Disease Panel Lab Routine Diarrhea, unspecified type Abdominal cramping 1 Occurrences starting 12/13/2021 until 12/13/2021 [facility] [employer] Phone: Comment on above: 1 Occurrences starti ng 12/13/2021 until 12/13/2021 End: 12-13-2021 [facility] [employer] Phone: Comment on above: Once for 1 Occurrenc es starting 12/13/2021 until 12/13/2021 End: 12-13-2021 Comprehensive metabolic 2000 panel - Serum or Plasma Comprehensive Metabolic Panel Lab Routine Blood in stool, gustavo Gastroesophageal reflux disease without esophagitis 1 Occurrences starting 12/13/2021 until 12/13/2021 [facility] [employer] Work Phone: Comment on above: 1 Occurrences starti ng 12/13/2021 until 12/13/2021 End: 03-01-2019 Varicella Zoster Antibody, IgG Varicella Zoster Antibody, IgG Lab Routine Need for varicella vaccine 1 Occurrences starting 03/01/2019 until 03/01/2019 [place], [place] Comment on above: 1 Occurrences starti ng 03/01/2019 until 03/01/2019 Varicella Zoster Antibody, IgG Varicella Zoster Antibody, IgG Lab Routine Need for varicella vaccine 03/01/2019 11:50 AM EDT [place], [place] Immunizations Immunization Date Immunization Notes Care Provider Fa uli 09-18-2021 COVID-19, Pfizer Pur ple top, DILUTE for use, 12+ yrs, 30mcg/0.3mL dose 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 APRN - CHIMNEY REPA[employer] Work Phone: [facility] [employer] [facility] Phone: 11-27-2019 Hepatitis B vaccine (recombinant), CpG adjuvanted 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 APRN [employer] Work Phone: [facility] [employer] Work Phone: 11-27-2019 tetanus toxoid, redu gordon diphtheria toxoid, and acellular pertussis vaccine, adsorbed 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 APRN [employer] Work Phone: [facility] [employer] Phone: 03-27-2019 hepatitis B vaccine, adult dosage 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 APRN - CHIMNEY REPAIRER Work Phone: [facility] [employer] Work Phone: 03-27-2019 measles, mumps and rubella virus vaccine 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 CARPET TECHNICIAN - [facility] Work Phone: [employer] Work Phone: 03-03-2019 measles, mumps and rubella virus vaccine 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 CARPET TECHNICIAN - [facility] Work Phone: [employer] Work Phone: 02-25-2019 hepatitis B vaccine, adult dosage 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 [facility] [employer] Payers Date Payer Category Payer Unknown [id number] 2022 Private Health Insurance [id number] 2018 Unknown BCBS [place] - [place] P PO xxxxxxxxxxxx 2018-Present [address] [place] [address] xxxxxxxxxxxx [id number] 2018 Unknown [id number] 1998 Unknown [id number] 1998 Unknown [id number] 1998 Unknown [id number] .[id number] 1998 Unknown [id number] .[id number] 1998 Unknown [id number] .1259 1998 Unknown [id number] .1259 1998 Unknown [id number] .[id number] Social History Date Type Detail Facility Start: 04-25-2016 End: 11-26-2018 Tobacco smoking status NHIS [place]oker [place] Start: 11-26-2018 Alcohol intake No Rachel [place], [place] Start: 1998 [facility] [place] Start: 04-25-2016 Tobacco use and exposure Smokeless tobacco non-user [employer] Phone: Start: 12-13-2021 Alcohol intake Current non-dr facing grinder of alcohol (finding) [employer] Phone: Start: 12-13-2021 History SDOH Financial 5 [employer] Phone: Start: 12-13-2021 History 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 1 [employer] Phone: Evaluation note Note Date & Type Note Facility Evaluation note Diagnosis Blood in stool, gustavo Blood in stool Gastroesophageal reflux disease without esophagitis Esophageal reflux Diarrhea, unspecified type Abdominal cramping Abdominal pain, unspecified site documented in this encounter [employer] Phone: Assessments Diagnosis Need for varicella vaccine Need for prophylactic vaccination and inoculation against varicella Advance Directives No Advanced Directives Records FoundDocuments on File Type Date Recorded 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 Advance Directives and Living Will Power of Subsystems Engineer Documents on File Type Date Recorded 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 ACP-Advance Directive ACP-Power of Subsystems Engineer Summary Purpose Family History No Family History Records FoundNo Family History Records Found Additional Source Comments Care Teams (unrecognized sec tion and content) Refrigerated Company Driver Relationship Specialty Start Date End Date 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, CARPET TECHNICIAN - CHIMNEY REPAIRER [address] [place] [address] PCP - General Nurse Practitioner 11/23/16 INFORMATION SOURCE (unrecogn ized section and content) DATE CREATED AUTHOR 06/02/2023 [facility] DATE CREATED AUTHOR AUTHOR'S ORGANIZ ATION 09/22/2023 [facility] FOR RECORDS PERTAINING TO PATIENTS [...] BE BASED ON THE PRIMARY CLINICAL RECORDS. [facility] [employer] [facility]. provides no warranty or guarantee of the accuracy or completeness of information in this document.
[2023-10-04 11:00] VITALS: BP 120/60; PULSE 94
== END 2023-10-04 11:40 | disposition home or self-care (01) ==
LOC: FBCO 07:24 → FBC 10:54
PROVIDERS: Visit Provider Obstetrics & Gynecology
DX: O99.283 Endocrine, nutritional and metabolic diseases complicating pregnancy, third trimester (principal)
CPT/HCPCS: 59025

== ENCOUNTER 2023-10-07 01:43 | Outpatient (OUT) | payer BC, OTHER, SELFPAY ==
--- OUTSIDE RECORDS SUMMARY | 2023-10-07 01:46 | XMS_ITS | CCD ---
Author Organization [facility] Care Team Providers Care Manager Of Training Name Role Phone 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 Primary Care Provider TERRENCE WOLF Attending Unavailable ARPIT PAREKH Primary Care Unavailable ARPIT PAREKH Primary Care Unavailable WILLIAM WHITAKER Attending Unavailable ALICIA CLANCY Attending Unavailable NAHED SALINAS Attending Unavailable NAHED SALINAS Attending Unavailable ALICIA CLANCY Attending Unavailable NAHED SALINAS Attending Unavailable ALICIA CLANCY Attending Unavailable Medications Current Medications Medication Drug [...] 05-30-2023 Abs. Basophil 0.01 k/uL Normal 0.00-0.20 [facility] Comment on above: Performed By: #### C DP, CP #### [facility] [address] [place] [address] Credit Resolution Representative: Mike Forde MD Abs.Imm.Granulocyte 0.01 k/uL Normal 0.00-0.30 [facility] Comment on above: Performed By: #### C DP, CP #### [facility] [address] [place] [address] Credit Resolution Representative: Mike Forde MD Abs.Neutrophil (Seg) 6.24 k/uL Normal 2.5-7.0 [facility] Comment on above: Performed By: #### C DP, CP #### [facility] [address] [place] [address] Credit Resolution Representative: Mike Forde MD Basophils/100 WBC (Bld) 0 % Normal 0-2 [facility] Comment on above: Performed By: #### C DP, CP #### [facility] [address] [place] [address] Credit Resolution Representative: Mike Forde MD Eosinophils (Bld) [#/Vol] 0.00 10*3/uL Normal 0.00-0.40 [facility] Comment on above: Performed By: #### C DP, CP #### [facility] [address] [place] [address] Credit Resolution Representative: Mike Forde MD Eosinophils/100 WBC (Bld) 0 % Normal 0-5 [facility] Comment on above: Performed By: #### C DP, CP #### [facility] [address] [place] [address] Credit Resolution Representative: Mike Forde MD Erythrocyte distribution width (RBC) [Ratio] 11.9 % Low 12.1-15.2 [facility] Comment on above: Performed By: #### C DP, CP #### [facility] [address] [place] [address] Credit Resolution Representative: Mike Forde MD Hematocrit (Bld) [Volume fraction] 41.1 % Normal 36.0-46.0 [facility] Comment on above: Performed By: #### C DP, CP #### [facility] [address] [place] [id number] Credit Resolution Representative: Mike Forde MD Hemoglobin (Bld) [Mass/Vol] 14.5 g/dL Normal 12.0-16.0 [facility] Comment on above: Performed By: #### C DP, CP #### [facility] [address] [place] [address] Credit Resolution Representative: Mike Forde MD Immature granulocytes/100 WBC (Bld) 0 % Normal 0-5 [facility] Comment on above: Performed By: #### C DP, CP #### [facility] [address] [place] [phone] Credit Resolution Representative: Mike Forde MD Lymphocytes (Bld) [#/Vol] 1.74 10*3/uL Normal 1.00-4.80 [facility] Comment on above: Performed By: #### C DP, CP #### [facility] [address] [place] [address] Credit Resolution Representative: Mike Forde MD Lymphocytes/100 WBC (Bld) 21 % Normal 15-40 [facility] Comment on above: Performed By: #### C DP, CP #### [facility] [address] [place] [address] Credit Resolution Representative: Mike Forde MD MCH (RBC) [Entitic mass] 29.2 pg Normal 26.0-34.0 [facility] Comment on above: Performed By: #### C DP, CP #### [facility] [address] [place] [address] Credit Resolution Representative: Mike Forde MD MCHC (RBC) [Mass/Vol] 35.3 g/dL Normal 31.0-37.0 [facility] Comment on above: Performed By: #### C DP, CP #### [facility] [address] [place] [address] Credit Resolution Representative: Mike Forde MD MCV (RBC) [Entitic vol] 82.9 fL Normal 80.0-100.0 [facility] Comment on above: Performed By: #### C DP, CP #### [facility] [address] [place] [phone] Credit Resolution Representative: Mike Forde MD Monocytes (Bld) [#/Vol] 0.50 10*3/uL Normal 0.00-1.00 [facility] Comment on above: Performed By: #### C DP, CP #### [facility] [address] [place] [address] Credit Resolution Representative: Mike Forde MD Monocytes/100 WBC (Bld) 6 % Normal 4-8 [facility] Comment on above: Performed By: #### C DP, CP #### [facility] [address] [place] [address] Credit Resolution Representative: Mike Forde MD Neutrophil (Seg) 73 % Normal 47-75 [facility] Comment on above: Performed By: #### C DP, CP #### [facility] [address] [place] [address] Credit Resolution Representative: Mike Forde MD Platelet mean volume (Bld) [Entitic vol] 10.4 fL Normal 6.0-12.0 [facility] Comment on above: Performed By: #### C DP, CP #### [facility] [address] [place] [address] (157) Credit Resolution Representative: Mike Forde MD Platelets (Bld) [#/Vol] 227 10*3/uL Normal 140-450 [facility] Comment on above: Performed By: #### C DP, CP #### [facility] [address] [place], [place] [phone] ([phone] Credit Resolution Representative: Mike Forde MD RBC (Bld) [#/Vol] 4.96 10*6/uL Normal 4.00-5.20 [facility] Comment on above: Performed By: #### C DP, CP #### [facility] [address] [place] [address] Credit Resolution Representative: Mike Forde MD WBC (Bld) [#/Vol] 8.5 10*3/uL Normal 3.5-11.0 [facility] Comment on above: Performed By: #### C DP, CP #### [facility] [address] [place] [address] Credit Resolution Representative: Mike Forde MD Comp Metabolic Profon 2022 Albumin [Mass/Vol] 4.2 g/dL Normal 3.5-5.2 [facility] Comment on above: Performed By: #### C DP, CP #### [facility] [address] [place] [address] Credit Resolution Representative: Mike Forde MD Alkaline Phos 48 U/L Normal 35-104 [facility] Comment on above: Performed By: #### C DP, CP #### [facility] [address] [place] [address] Credit Resolution Representative: Mike Forde MD ALT [Catalytic activity/Vol] 12 U/L Normal 5-33 [facility] Comment on above: Performed By: #### C DP, CP #### [facility] [address] [place] [address] Credit Resolution Representative: Mike Forde MD Anion gap [Moles/Vol] 15 mmol/L Normal 9-17 [facility] Comment on above: Performed By: #### C DP, CP #### [facility] [address] [place] [address] Credit Resolution Representative: Mike Forde MD AST [Catalytic activity/Vol] 11 U/L Normal <32 [facility] Comment on above: Performed By: #### C DP, CP #### [facility] [address] [place] [address] Credit Resolution Representative: Mike Forde MD Bilirubin [Mass/Vol] mg/dL Low 0.3-1.2 [facility] Comment on above: Performed By: #### C DP, CP #### [facility] [address] [place] [address] Credit Resolution Representative: Miek Forde MD BUN/CRE Ratio 14 Normal 9-20 [facility] Comment on above: Performed By: #### C DP, CP #### [facility] [address] [place] [address] Credit Resolution Representative: Mike Forde MD Calcium [Mass/Vol] 9.7 mg/dL Normal 8.6-10.4 [facility] Comment on above: Performed By: #### C DP, CP #### [facility] [address] [place] [address] Credit Resolution Representative: Mike Forde MD Chloride [Moles/Vol] 101 mmol/L Normal 98-107 [facility] Comment on above: Performed By: #### C DP, CP #### [facility] [address] [place], [place] [id number] Credit Resolution Representative: Mike Forde MD CO2 [Moles/Vol] 22 mmol/L Normal 20-31 [facility] Comment on above: Performed By: #### C DP, CP #### [facility] [address] [place], [place] [id number] Credit Resolution Representative: Mike Forde MD Creatinine [Mass/Vol] 0.5 mg/dL Normal 0.5-0.9 [facility] Comment on above: Performed By: #### C DP, CP #### [facility] [address] [place], [place] [phone] Credit Resolution Representative: Mike Forde MD GFR/1.73 sq M.predicted among non-blacks MDRD (S/P/Bld) [Vol rate/Area] mL/min/{1.73_m2} Normal >60 [facility] Comment on above: Result Comment: These [...] Performed By: #### C DP, CP #### [facility] [address] [place] [address] Credit Resolution Representative: Mike Forde MD Glucose [Mass/Vol] 90 mg/dL Normal 70-99 [facility] Comment on above: Performed By: #### C DP, CP #### [facility] [address] [place], [place] [id number] Credit Resolution Representative: Mike Forde MD Potassium [Moles/Vol] 3.5 mmol/L Low 3.7-5.3 [facility] Comment on above: Performed By: #### C DP, CP #### [facility] [address] [place], [place] [id number] Credit Resolution Representative: Mike Forde MD Protein [Mass/Vol] 7.5 g/dL Normal 6.4-8.3 [facility] Comment on above: Performed By: #### C DP, CP #### [facility] [address] [place], [place] [id number] Credit Resolution Representative: Mike Forde MD Sodium [Moles/Vol] 138 mmol/L Normal 135-144 [facility] Comment on above: Performed By: #### C DP, CP #### [facility] [address] [place], [place] [id number] Credit Resolution Representative: Mike Forde MD Urea nitrogen [Mass/Vol] 7 mg/dL Normal 6-20 [facility] Comment on above: Performed By: #### C DP, CP #### [facility] [address] [place], [place] [id number] Credit Resolution Representative: Mike Forde MD Basic Metabolic Profon 04-16 Anion gap [Moles/Vol] 15 mmol/L Normal 9-17 [facility] Comment on above: Performed By: #### C DP, BMP #### [facility] [address] [place], [place] [id number] Credit Resolution Representative: Mike Forde MD BUN/CRE Ratio 10 Normal 9-20 [facility] Comment on above: Performed By: #### C DP, BMP #### [facility] [address] [place], [place] [id number] Credit Resolution Representative: Mike Forde MD Calcium [Mass/Vol] 10.2 mg/dL Normal 8.6-10.4 [facility] Comment on above: Performed By: #### C DP, BMP #### [facility] [address] [place], [place] [id number] Credit Resolution Representative: Mike Forde MD Chloride [Moles/Vol] 98 mmol/L Normal 98-107 [facility] Comment on above: Performed By: #### C DP, BMP #### [facility] [address] [place] [address] Credit Resolution Representative: Mike Forde MD CO2 [Moles/Vol] 22 mmol/L Normal 20-31 [facility] Comment on above: Performed By: #### C DP, BMP #### [facility] [address] [place] [address] Credit Resolution Representative: Mike Forde MD Creatinine [Mass/Vol] 0.7 mg/dL Normal 0.5-0.9 [facility] Comment on above: Performed By: #### C DP, BMP #### [facility] [address] [place] [address] Credit Resolution Representative: Mike Forde MD GFR/1.73 sq M.predicted among non-blacks MDRD (S/P/Bld) [Vol rate/Area] mL/min/{1.73_m2} Normal >60 [facility] Comment on above: Result Comment: These [...] Performed By: #### C DP, BMP #### [facility] [address] [place] [address] Credit Resolution Representative: Mike Forde MD Glucose [Mass/Vol] 113 mg/dL High 70-99 [facility] Comment on above: Performed By: #### C DP, BMP #### [facility] [address] [place] [address] Credit Resolution Representative: Mike Forde MD Potassium [Moles/Vol] 3.4 mmol/L Low 3.7-5.3 [facility] Comment on above: Performed By: #### C DP, BMP #### [facility] [address] [place], [place] [phone] Credit Resolution Representative: Mike Forde MD Sodium [Moles/Vol] 135 mmol/L Normal 135-144 [facility] Comment on above: Performed By: #### C DP, BMP #### [facility] [address] [place], [place] [id number] Credit Resolution Representative: Mike Forde MD Urea nitrogen [Mass/Vol] 7 mg/dL Normal 6-20 [facility] Comment on above: Performed By: #### C DP, BMP #### [facility] [address] [place] [address] Credit Resolution Representative: Mike Forde MD CBC with Diffon 04-16-2023 Abs. Basophil 0.03 k/uL Normal 0.00-0.20 [facility] Comment on above: Performed By: #### C DP, BMP #### [facility] [address] [place] [phone] Credit Resolution Representative: Mike Forde MD Abs.Imm.Granulocyte 0.02 k/uL Normal 0.00-0.30 [facility] Comment on above: Performed By: #### C DP, BMP #### [facility] [address] [place], [place] [id number] Credit Resolution Representative: Mike Forde MD Abs.Neutrophil (Seg) 7.51 k/uL High 2.5-7.0 [facility] Comment on above: Performed By: #### C DP, BMP #### [facility] [address] [place], [place] [id number] Credit Resolution Representative: Mike Forde MD Basophils/100 WBC (Bld) 0 % Normal 0-2 [facility] Comment on above: Performed By: #### C DP, BMP #### [facility] [address] [place], [place] [phone] Credit Resolution Representative: Mike Forde MD Eosinophils (Bld) [#/Vol] 0.03 10*3/uL Normal 0.00-0.40 [facility] Comment on above: Performed By: #### C DP, BMP #### [facility] [address] [place], [place] [id number] Credit Resolution Representative: Mike Forde MD Eosinophils/100 WBC (Bld) 0 % Normal 0-5 [facility] Comment on above: Performed By: #### C DP, BMP #### [facility] [address] [place] [phone] Credit Resolution Representative: Mike Forde MD Erythrocyte distribution width (RBC) [Ratio] 11.8 % Low 12.1-15.2 [facility] Comment on above: Performed By: #### C DP, BMP #### [facility] [address] [place] [phone] Credit Resolution Representative: Mike Forde MD Hematocrit (Bld) [Volume fraction] 43.4 % Normal 36.0-46.0 [facility] Comment on above: Performed By: #### C DP, BMP #### [facility] [address] [place] [phone] Credit Resolution Representative: Mike Forde MD Hemoglobin (Bld) [Mass/Vol] 15.5 g/dL Normal 12.0-16.0 [facility] Comment on above: Performed By: #### C DP, BMP #### [facility] [address] [place], [place] [id number] Credit Resolution Representative: Mike Forde MD Immature granulocytes/100 WBC (Bld) 0 % Normal 0-5 [facility] Comment on above: Performed By: #### C DP, BMP #### [facility] [address] [place], [place] [phone] Credit Resolution Representative: Mike Forde MD Lymphocytes (Bld) [#/Vol] 2.33 10*3/uL Normal 1.00-4.80 [facility] Comment on above: Performed By: #### C DP, BMP #### [facility] [address] [place] [phone] Credit Resolution Representative: Mike Forde MD Lymphocytes/100 WBC (Bld) 22 % Normal 15-40 [facility] Comment on above: Performed By: #### C DP, BMP #### [facility] [address] [place] [phone] Credit Resolution Representative: Mike Forde MD MCH (RBC) [Entitic mass] 28.9 pg Normal 26.0-34.0 [facility] Comment on above: Performed By: #### C DP, BMP #### [facility] [address] [place] [address] Credit Resolution Representative: Mike Forde MD MCHC (RBC) [Mass/Vol] 35.7 g/dL Normal 31.0-37.0 [facility] Comment on above: Performed By: #### C DP, BMP #### [facility] [address] [place] [id number] Credit Resolution Representative: Mike Forde MD MCV (RBC) [Entitic vol] 80.8 fL Normal 80.0-100.0 [facility] Comment on above: Performed By: #### C DP, BMP #### [facility] [address] [place] [address] Credit Resolution Representative: Mike Forde MD Monocytes (Bld) [#/Vol] 0.88 10*3/uL Normal 0.00-1.00 [facility] Comment on above: Performed By: #### C DP, BMP #### [facility] [address] [place] [phone] Credit Resolution Representative: Mike Forde MD Monocytes/100 WBC (Bld) 8 % Normal 4-8 [facility] Comment on above: Performed By: #### C DP, BMP #### [facility] [address] [place], [place] [phone] ([phone] Credit Resolution Representative: Mike Forde MD Neutrophil (Seg) 70 % Normal 47-75 [facility] Comment on above: Performed By: #### C DP, BMP #### [facility] [address] [place], [place] [phone] ([phone] Credit Resolution Representative: Mike Forde MD Platelet mean volume (Bld) [Entitic vol] 10.5 fL Normal 6.0-12.0 [facility] Comment on above: Performed By: #### C DP, BMP #### [facility] [address] [place] [address] Credit Resolution Representative: Mike Forde MD Platelets (Bld) [#/Vol] 279 10*3/uL Normal 140-450 [facility] Comment on above: Performed By: #### C DP, BMP #### [facility] [address] [place] [phone] ([phone] Credit Resolution Representative: Mike Forde MD RBC (Bld) [#/Vol] 5.37 10*6/uL High 4.00-5.20 [facility] Comment on above: Performed By: #### C DP, BMP #### [facility] [address] [place] [phone] ([phone] Credit Resolution Representative: Mike Forde MD WBC (Bld) [#/Vol] 10.8 10*3/uL Normal 3.5-11.0 [facility] Comment on above: Performed By: #### C DP, BMP #### [facility] [address] [place] [address] ([phone] Credit Resolution Representative: Mike Forde MD CBC with Auto Differentialon 12-13-2021 Absolute Eos # 0.00 [facility] Absolute Lymph # 1.90 [facility] Absolute [place] # 0.50 [facility] Basophils (Bld) [#/Vol] 0.00 10*3/uL [facility] Basophils/100 WBC (Bld) 0 % 0 - 2 % [facility] Differential Type YES [facility] Eosinophils/100 WBC (Bld) 0 % 0 - 5 % [facility] Hematocrit (Bld) [Volume fraction] 43.5 % 36 - 46 % [facility] Hemoglobin (Bld) [Mass/Vol] 14.6 g/dL 12.0 - 16.0 g/dL [facility] Lymphocytes/100 WBC (Bld) 21 % 15 - 40 % [facility] MCH (RBC) [Entitic mass] 28.9 pg 26 - 34 pg [facility] MCHC (RBC) [Mass/Vol] 33.5 g/dL 31 - 37 g/dL B ON [facility] MCV (RBC) [Entitic vol] 86.2 fL 80 - 100 fL [facility] Monocytes/100 WBC (Bld) 5 % 4 - 8 % [facility] Platelet distribution width (Bld) [Ratio] 12.3 % 12.1 - 15.2 % [facility] Platelets (Bld) [#/Vol] 265 10*3/uL [facility] RBC (Bld) [#/Vol] 5.05 10*6/uL 4.0 - 5.2 m/uL [facility] Segmented neutrophils/100 WBC (Bld) 74 % 47 - 75 % [facility] Segs Absolute 6.60 [facility] WBC (Bld) [#/Vol] 9.1 10*3/uL [facility] Comprehensive Metabolic Pane davi 12-13-2021 Albumin [Mass/Vol] 4.3 g/dL 3.5 - 5.2 g/dL YASMIN N [facility] ALP (Bld) [Catalytic activity/Vol] 77 U/L 35 - 104 U/L [facility] ALT [Catalytic activity/Vol] 23 U/L 5 - 33 U/L [facility] Anion gap [Moles/Vol] 11 mmol/L 9 - 17 mmol/L [facility] AST [Catalytic activity/Vol] 15 U/L <32 [facility] Bilirubin [Mass/Vol] 0.51 mg/dL 0.30 - 1.20 mg/dL [facility] Calcium [Mass/Vol] 9.6 mg/dL 8.6 - 10.4 mg/dL [facility] Chloride [Moles/Vol] 102 mmol/L 98 - 107 mmol/L [facility] CO2 [Moles/Vol] 25 mmol/L 20 - 31 mmol/L [facility] Creatinine [Mass/Vol] 0.77 mg/dL 0.50 - 0.90 mg/dL [facility] Free PSA/Total PSA [Mass fraction] 7.4 g/dL 6.4 - 8.3 g/dL [facility] GFR >60 >60 mL/min [facility] GFR Non- >60 >60 mL/min [facility] GFR/1.73 sq M.predicted MDRD (S/P/Bld) [Vol rate/Area] [facility] Comment on above: Average GFR for 20-2 9 years old: 116 mL/min/1.73sq m Chronic Kidney Disease: <60 mL/min/1.73sq m Kidney failure: <15 mL/min/1.73sq m eGFR calculated using average adult body mass. Additional eGFR calculator available at: http://www.[employer] Index/multiple_crcl_2012.htm Glucose [Mass/Vol] 93 mg/dL 70 - 99 mg/dL [facility] Potassium [Moles/Vol] 4.2 mmol/L 3.7 - 5.3 mmol /L [facility] Sodium [Moles/Vol] 138 mmol/L 135 - 144 mmol/L [facility] Urea nitrogen (BldV) [Mass/Vol] 9 mg/dL 6 - 20 mg/dL [facility] Urea nitrogen/Creatinine (Bld) [Mass ratio] 12 [facility] Encounters Encounter Date Encounter Type Care Provider Facility Start: 10-05-2023 End: 10-05-2023 ambulatory ALICIA CLANCY Not Available Start: 09-21-2023 End: 09-21-2023 ambulatory NAHED RITA Not Available Start: 09-07-2023 End: 09-07-2023 ambulatory ALICIA CLANCY Not Available Start: 08-09-2023 End: 08-09-2023 ambulatory NAHED RITA Not Available Start: 07-12-2023 End: 07-12-2023 ambulatory ALICIA CLANCY Not Available Start: 06-14-2023 End: 06-14-2023 ambulatory NAHED RITA Not Available Start: 05-30-2023 End: 05-31-2023 Emergency department patient visit ASHLEYEZIO Lozano MARYANN [facility] Start: 04-16-2023 End: 04-17-2023 Emergency department patient visit ARPIT PAREKH [facility] Start: 12-13-2021 End: 12-13-2021 Subsequent hospital visit by physician Arpit Leblanc CNP Work Phone: [email or web address] Comment on above: Blood in stool, zeina k; Gastroesophageal reflux disease without esophagitis; Diarrhea, unspecified type; Abdominal cramping Start: 03-01-2019 End: 03-01-2019 Subsequent hospital visit by physician 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 [facility] Comment on above: Need for varicella v accine Procedures Date Procedure Procedure Detail Performing Clinician Start: 12-13-2021 Comprehensive metabo lic panel Arpit Leblanc CNP Work Phone: Plan of Treatment Date Care Activity Detail Author Start: 11-26-2029 DTaP/Tdap/Td vaccine (3 - Td or Tdap) DTaP/Tdap/Td vaccine (3 - Td or Tdap) [facility] Start: 12-13-2022 Depression Screen Depression Screen [facility] Start: 03-14-2022 COVID-19 Vaccine (3 - Booster for Pfizer series) COVID-19 Vaccine (3 - Booster for Pfizer series) [facility] Start: 03-10-2022 Influenza vaccination Flu vaccine (S angelo Ended) [facility] Start: 01-11-2022 End: 01-11-2022 Patient encounter procedure 01/11/2022 Office Visit Family Medicine 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 APRN - CNP [address] [place] [phone] [facility] Start: 2019 Screening for malign ant neoplasm of cervix Pap smear [facility] Start: 03-10-2019 Influenza vaccination Flu vaccine (# 1) [place], [place] Start: 2017 DTaP/Tdap/Td vaccine (1 - Tdap) DTaP/Tdap/Td vaccine (1 - Tdap) [place] Start: 2016 Hepatitis C screening Hepatitis C sc reen [facility] Start: 2014 Chlamydia screen Chlamydia screen [place], [place] Start: 2014 Screening for Chlamy nathalie trachomatis Chlamydia screen [facility] Start: 2013 HIV screen HIV screen [place], [place] Start: 2013 HIV screening HIV screen [facility] Start: 2013 HPV vaccine (1 - Fem dana 3-dose series) HPV vaccine (1 - Female 3-dose series) [place], [place] Start: 2011 Varicella Vaccine (1 of 2 - 13+ 2-dose series) Varicella Vaccine (1 of 2 - 13+ 2-dose series) [place], [place] Start: 2009 HPV vaccine (1 - 2-d ose series) HPV vaccine (1 - 2-dose series) [facility] Start: 1999 Varicella vaccine (1 of 2 - 2-dose childhood series) Varicella vaccine (1 of 2 - 2-dose childhood series) [facility] End: 12-13-2021 CBC W Auto Differential panel - Blood CBC with Auto Differential Lab Routine Diarrhea, unspecified type Blood in stool, gustavo 1 Occurrences starting 12/13/2021 until 12/13/2021 [facility] Work Phone: Comment on above: 1 Occurrences starti ng 12/13/2021 until 12/13/2021 End: 12-13-2021 Celiac Disease Panel Celiac Disease Panel Lab Routine Diarrhea, unspecified type Abdominal cramping 1 Occurrences starting 12/13/2021 until 12/13/2021 [facility] Work Phone: Comment on above: 1 Occurrences starti ng 12/13/2021 until 12/13/2021 End: 12-13-2021 Celiac Plus [employer] Work Phone: Comment on above: Once for 1 Occurrenc es starting 12/13/2021 until 12/13/2021 End: 12-13-2021 Comprehensive metabolic 2000 panel - Serum or Plasma Comprehensive Metabolic Panel Lab Routine Blood in stool, gustavo Gastroesophageal reflux disease without esophagitis 1 Occurrences starting 12/13/2021 until 12/13/2021 [facility] [employer] Phone: Comment on above: 1 Occurrences starti ng 12/13/2021 until 12/13/2021 End: 03-01-2019 Varicella Zoster Antibody, IgG Varicella Zoster Antibody, IgG Lab Routine Need for varicella vaccine 1 Occurrences starting 03/01/2019 until 03/01/2019 [place], [place] Comment on above: 1 Occurrences starti ng 03/01/2019 until 03/01/2019 Varicella Zoster Antibody, IgG Varicella Zoster Antibody, IgG Lab Routine Need for varicella vaccine 03/01/2019 11:50 AM EDT [place], [place] Immunizations Immunization Date Immunization Notes Care Provider Rohit mcnally 09-18-2021 COVID-19, Pfizer Pur ple top, DILUTE for use, 12+ yrs, 30mcg/0.3mL dose 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 PACKAGE DYE STAND LOADER - ULTRASOUND TECHNOL Work Phone: [facility] [employer] Work Phone: 11-27-2019 Hepatitis B vaccine (recombinant), CpG adjuvanted 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 PACKAGE DYE STAND LOADER - ULTRASOUND TECHNOL Work Phone: [facility] [employer] Work Phone: 11-27-2019 tetanus toxoid, redu gordon diphtheria toxoid, and acellular pertussis vaccine, adsorbed 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 PACKAGE DYE STAND LOADER - ULTRASOUND TECHNOL Work Phone: [facility] [employer] Work Phone: 03-27-2019 hepatitis B vaccine, adult dosage 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 PACKAGE DYE STAND LOADER - ULTRASOUND TECHNOL Work Phone: [facility] [employer] Work Phone: 03-27-2019 measles, mumps and rubella virus vaccine 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 APRN - [facility] Work Phone: [facility] [employer] Work Phone: 03-03-2019 measles, mumps and rubella virus vaccine 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 PACKAGE DYE STAND LOADER - [facility] Work Phone: [facility] [employer] Work Phone: 02-25-2019 hepatitis B vaccine, adult dosage 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 [facility] [employer] [facility] Payers Date Payer Category Payer Unknown [id number] 2022 Private Health Insurance [id number] 2018 Unknown BCBS [place] - [place] P PO xxxxxxxxxxxx 2018-Present [address] [place] [address] xxxxxxxxxxxx [id number] 2018 Unknown [id number] 1998 Unknown [id number] 1998 Unknown [id number] 1998 Unknown [id number] 1998 Unknown [id number] 1998 Unknown [id number] 1998 Unknown [id number] 1998 Unknown [id number] 1998 Unknown [id number] Social History Date Type Detail Facility Start: 04-25-2016 End: 11-26-2018 Tobacco smoking status NHIS Never smoker [place], [place] Start: 11-26-2018 Alcohol intake No Rachel [place] Start: 2000 Sex Assigned At Not on file [place] Start: 04-25-2016 Tobacco use and exposure Smokeless tobacco non-user [employer] Phone: Start: 12-13-2021 Alcohol intake 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) [employer] Phone: Start: 12-13-2021 History SDOH Financial 5 [employer] Phone: Start: 12-13-2021 History 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 1 [employer] Phone: Evaluation note Note Date & Type Note Facility Evaluation note Diagnosis Blood in stool, gustavo Blood in stool Gastroesophageal reflux disease without esophagitis Esophageal reflux Diarrhea, unspecified type Abdominal cramping Abdominal pain, unspecified site documented in this encounter [employer] Phone: Assessments Diagnosis Need for varicella vaccine Need for prophylactic vaccination and inoculation against varicella Advance Directives No Advanced Directives Records FoundDocuments on File Type Date Recorded Patient Cancer Registry Manager Expl anation Advance Directives and Living Will Power of [employer] Documents on File Type Date Recorded Patient Cancer Registry Manager Expl anation ACP-Advance Directive ACP-Power of [employer] Summary Purpose Family History No Family History Records FoundNo Family History Records Found Additional Source Comments Care Teams (unrecognized sec tion and content) Manager Of Training Relationship Specialty Start Date End Date 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, DO - ULTRASOUND TECHNOL [address] [place] [phone] PCP - General Nurse Practitioner 11/23/16 INFORMATION SOURCE (unrecogn ized section and content) DATE CREATED AUTHOR 06/02/2023 Rachel allen DATE CREATED AUTHOR AUTHORSera GAGNON 10/06/[address] [facility] FOR RECORDS PERTAINING TO PATIENTS WHO ARE [...] BE BASED ON THE PRIMARY CLINICAL RECORDS. [employer] provides no warranty or guarantee of the accuracy or completeness of information in this document.
[2023-10-07 09:01] VITALS: BP 111/64; PULSE 102
--- NOTE | 2023-10-07 09:25 | US_ITS ---
[address] [address] Patient Name: DANIEL ARMENDARIZ MRN: [id number] date: 2000 Sex: F Assigned Patient Location: [facility] Current Patient Location: [facility] Accession/Order Number: [id number] Exam Date: 10/07/2023 09:30 Report Date: 10/09/2023 11:17 At the request of: NAHED SALINAS Procedure: US OB BPP w non-stress EXAMINATION: US OB BPP w non-stress HISTORY: HYPERTHYROIDISM AFFECTING O99.280,E05.90 COMPARISON: Ultrasound OB biophysical 09/30/2023 TECHNIQUE: Ultrasound biophysical profile was performed in the radiology department. BREATHING MOVEMENTS: 2.0 GROSS BODY MOVEMENTS: 2.0 TONE: 2.0 QUALITATIVE AMNIOTIC FLUID VOLUME: 2.0 PRESENTATION: CEPHALIC HEART RATE: 175.3 bpm bpm. AMNIOTIC FLUID VOLUME: 15.3 cm GESTATIONAL AGE: 33 weeks 0 days CONCLUSION: Total biophysical profile score 8.0. Electronically authenticated by: RAMA BOWMAN Date: 10/09/2023 11:17
== END 2023-10-07 09:42 | disposition home or self-care (01) ==
LOC: US 01:43 → FBC 08:56
PROVIDERS: Visit Provider Obstetrics & Gynecology
DX: O99.280 Endocrine, nutritional and metabolic diseases complicating pregnancy, unspecified trimester (principal); E05.90 Thyrotoxicosis, unspecified without thyrotoxic crisis or storm; Z3A.33 33 weeks gestation of pregnancy
CPT/HCPCS: 76818

== ENCOUNTER 2023-10-09 07:58 | Outpatient (OUT) | payer BC, OTHER, SELFPAY ==
--- NOTE | 2023-10-09 08:00 | US_ITS ---
[address] [address] Patient Name: DANIEL ARMENDARIZ MRN: [id number] date: 2000 Sex: F Assigned Patient Location: [facility] Current Patient Location: [facility] Accession/Order Number: [id number] Exam Date: 10/09/2023 08:02 Report Date: 10/09/2023 08:41 At the request of: ALICIA CLANCY Procedure: US OB growth EXAMINATION: US OB growth HISTORY: Excessive growth O36.63X0 COMPARISON: Ultrasound OB anatomy 07/12/2023 FINDINGS: Heart Rate: 165.0 bpm Number: 1.0 Position: Blank Amniotic Fluid Volume: 15.3 cm Maximum Vertical Pocket: 4.1 cm BIOMETRY: BPD: 8.5 cm cm; 34 weeks 1 days; 68% HC: 31.9 cmcm; 36 weeks 0 days; 81% AC: 30.4 cm cm; 34 weeks 3 days; 81% FL: 6.5 cm cm; 33 weeks 2 days; 39% EFW: 2374.2 grams; 70% FL/AC: 21.2 FL/BPD: 76.2 HC/AC: 1.1 GESTATIONAL AGE: Age by EDC: 33 weeks 2 days ANTONIO by EDC: 11/25/2023 Age by US: 34 weeks 3 days ANTONIO by US: 11/17/2023 US/US OB growth IMPRESSION: 1. Single live intrauterine with growth detailed above. Electronically authenticated by: RAMA BOWMAN Date: 10/09/2023 08:41
--- OUTSIDE RECORDS SUMMARY | 2023-10-09 08:11 | XMS_ITS | CCD ---
Author Organization [facility] Care Team Providers Care Windows Mobile Developer Name Role Phone 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 [facility] [...] 05-30-2023 Abs. Basophil 0.01 k/uL Normal 0.00-0.20 [facility] Comment on above: Performed By: #### C DP, CP #### [facility] [address] [place] [address] Traffic Engineer: Mike Forde MD Abs.Imm.Granulocyte 0.01 k/uL Normal 0.00-0.30 [facility] Comment on above: Performed By: #### C DP, CP #### [facility] [address] [place] [address] Traffic Engineer: Mike Forde MD Abs.Neutrophil (Seg) 6.24 k/uL Normal 2.5-7.0 [facility] Comment on above: Performed By: #### C DP, CP #### [facility] [address] [place] [address] Traffic Engineer: Mike Forde MD Basophils/100 WBC (Bld) 0 % Normal 0-2 [facility] Comment on above: Performed By: #### C DP, CP #### [facility] [address] [place] [address] Traffic Engineer: Mike Forde MD Eosinophils (Bld) [#/Vol] 0.00 10*3/uL Normal 0.00-0.40 [facility] Comment on above: Performed By: #### C DP, CP #### [facility] [address] [place] [address] Traffic Engineer: iMke Forde MD Eosinophils/100 WBC (Bld) 0 % Normal 0-5 [facility] Comment on above: Performed By: #### C DP, CP #### [facility] [address] [place] [address] Traffic Engineer: Mike Forde MD Erythrocyte distribution width (RBC) [Ratio] 11.9 % Low 12.1-15.2 [facility] Comment on above: Performed By: #### C DP, CP #### [facility] [address] [place] [address] Traffic Engineer: Mike Forde MD Hematocrit (Bld) [Volume fraction] 41.1 % Normal 36.0-46.0 [facility] Comment on above: Performed By: #### C DP, CP #### [facility] [address] [place] [phone] Traffic Engineer: Mike Forde MD Hemoglobin (Bld) [Mass/Vol] 14.5 g/dL Normal 12.0-16.0 [facility] Comment on above: Performed By: #### C DP, CP #### [facility] [address] [place] [address] Traffic Engineer: Mike Forde MD Immature granulocytes/100 WBC (Bld) 0 % Normal 0-5 [facility] Comment on above: Performed By: #### C DP, CP #### [facility] [address] [place] [phone] Traffic Engineer: Mike Forde MD Lymphocytes (Bld) [#/Vol] 1.74 10*3/uL Normal 1.00-4.80 [facility] Comment on above: Performed By: #### C DP, CP #### [facility] [address] [place] [address] Traffic Engineer: Mike Forde MD Lymphocytes/100 WBC (Bld) 21 % Normal 15-40 [facility] Comment on above: Performed By: #### C DP, CP #### [facility] [address] [place] [address] Traffic Engineer: Mike Forde MD MCH (RBC) [Entitic mass] 29.2 pg Normal 26.0-34.0 [facility] Comment on above: Performed By: #### C DP, CP #### [facility] [address] [place] [address] Traffic Engineer: Mike Forde MD MCHC (RBC) [Mass/Vol] 35.3 g/dL Normal 31.0-37.0 [facility] Comment on above: Performed By: #### C DP, CP #### [facility] [address] [place] [address] Traffic Engineer: Mike Forde MD MCV (RBC) [Entitic vol] 82.9 fL Normal 80.0-100.0 [facility] Comment on above: Performed By: #### C DP, CP #### [facility] [address] [place] [phone] Traffic Engineer: Mike Forde MD Monocytes (Bld) [#/Vol] 0.50 10*3/uL Normal 0.00-1.00 [facility] Comment on above: Performed By: #### C DP, CP #### [facility] [address] [place] [address] Traffic Engineer: Mike Forde MD Monocytes/100 WBC (Bld) 6 % Normal 4-8 [facility] Comment on above: Performed By: #### C DP, CP #### [facility] [address] [place] [address] Traffic Engineer: Mike Forde MD Neutrophil (Seg) 73 % Normal 47-75 [facility] Comment on above: Performed By: #### C DP, CP #### [facility] [address] [place] [address] Traffic Engineer: Mike Forde MD Platelet mean volume (Bld) [Entitic vol] 10.4 fL Normal 6.0-12.0 [facility] Comment on above: Performed By: #### C DP, CP #### [facility] [address] [place] [address] [phone] Traffic Engineer: Mike Forde MD Platelets (Bld) [#/Vol] 227 10*3/uL Normal 140-450 [facility] Comment on above: Performed By: #### C DP, CP #### [facility] [address] [place], [place] [phone] Traffic Engineer: Mike Forde MD RBC (Bld) [#/Vol] 4.96 10*6/uL Normal 4.00-5.20 [facility] Comment on above: Performed By: #### C DP, CP #### [facility] [address] [place] [address] Traffic Engineer: Mike Forde MD WBC (Bld) [#/Vol] 8.5 10*3/uL Normal 3.5-11.0 [facility] Comment on above: Performed By: #### C DP, CP #### [facility] [address] [place] [address] Traffic Engineer: Mike Forde MD Comp Metabolic Profon 2022 Albumin [Mass/Vol] 4.2 g/dL Normal 3.5-5.2 [facility] Comment on above: Performed By: #### C DP, CP #### [facility] [address] [place] [address] Traffic Engineer: Mike Forde MD Alkaline Phos 48 U/L Normal 35-104 [facility] Comment on above: Performed By: #### C DP, CP #### [facility] [address] [place] [address] Traffic Engineer: Mike Forde MD ALT [Catalytic activity/Vol] 12 U/L Normal 5-33 [facility] Comment on above: Performed By: #### C DP, CP #### [facility] [address] [place] [address] Traffic Engineer: Mike Forde MD Anion gap [Moles/Vol] 15 mmol/L Normal 9-17 [facility] Comment on above: Performed By: #### C DP, CP #### [facility] [address] [place] [address] Traffic Engineer: Mike Forde MD AST [Catalytic activity/Vol] 11 U/L Normal <32 [facility] Comment on above: Performed By: #### C DP, CP #### [facility] [address] [place] [address] Traffic Engineer: Mike Forde MD Bilirubin [Mass/Vol] mg/dL Low 0.3-1.2 [facility] Comment on above: Performed By: #### C DP, CP #### [facility] [address] [place] [address] Traffic Engineer: Mike Forde MD BUN/CRE Ratio 14 Normal 9-20 [facility] Comment on above: Performed By: #### C DP, CP #### [facility] [address] [place] [address] Traffic Engineer: Mike Forde MD Calcium [Mass/Vol] 9.7 mg/dL Normal 8.6-10.4 [facility] Comment on above: Performed By: #### C DP, CP #### [facility] [address] [place] [address] Traffic Engineer: Mike Forde MD Chloride [Moles/Vol] 101 mmol/L Normal 98-107 [facility] Comment on above: Performed By: #### C DP, CP #### [facility] [address] [place], [place] [phone] Traffic Engineer: Mike Forde MD CO2 [Moles/Vol] 22 mmol/L Normal 20-31 [facility] Comment on above: Performed By: #### C DP, CP #### [facility] [address] [place], [place] [phone] Traffic Engineer: Mike Forde MD Creatinine [Mass/Vol] 0.5 mg/dL Normal 0.5-0.9 [facility] Comment on above: Performed By: #### C DP, CP #### [facility] [address] [place], [place] [phone] Traffic Engineer: Mike Forde MD GFR/1.73 sq M.predicted among non-blacks MDRD (S/P/Bld) [Vol rate/Area] mL/min/{1.73_m2} Normal >60 [facility] Comment on above: Result Comment: These results [...] Performed By: #### C DP, CP #### [facility] [address] [place] [address] Traffic Engineer: Mike Forde MD Glucose [Mass/Vol] 90 mg/dL Normal 70-99 [facility] Comment on above: Performed By: #### C DP, CP #### [facility] [address] [place], [place] [phone] Traffic Engineer: Mike Forde MD Potassium [Moles/Vol] 3.5 mmol/L Low 3.7-5.3 [facility] Comment on above: Performed By: #### C DP, CP #### [facility] [address] [place], [place] [phone] Traffic Engineer: Mike Forde MD Protein [Mass/Vol] 7.5 g/dL Normal 6.4-8.3 [facility] Comment on above: Performed By: #### C DP, CP #### [facility] [address] [place], [place] [phone] Traffic Engineer: Mike Forde MD Sodium [Moles/Vol] 138 mmol/L Normal 135-144 [facility] Comment on above: Performed By: #### C DP, CP #### [facility] [address] [place], [place] [phone] Traffic Engineer: Mike Forde MD Urea nitrogen [Mass/Vol] 7 mg/dL Normal 6-20 [facility] Comment on above: Performed By: #### C DP, CP #### [facility] [address] [place], [place] [phone] Traffic Engineer: Mike Fodre MD Basic Metabolic Profon 04-16 Anion gap [Moles/Vol] 15 mmol/L Normal 9-17 [facility] Comment on above: Performed By: #### C DP, BMP #### [facility] [address] [place], [place] [phone] Traffic Engineer: Mike Forde MD BUN/CRE Ratio 10 Normal 9-20 [facility] Comment on above: Performed By: #### C DP, BMP #### [facility] [address] [place], [place] [phone] Traffic Engineer: Mike Forde MD Calcium [Mass/Vol] 10.2 mg/dL Normal 8.6-10.4 [facility] Comment on above: Performed By: #### C DP, BMP #### [facility] [address] [place], [place] [phone] Traffic Engineer: Mike Forde MD Chloride [Moles/Vol] 98 mmol/L Normal 98-107 [facility] Comment on above: Performed By: #### C DP, BMP #### [facility] [address] [place] [address] Traffic Engineer: Mike Forde MD CO2 [Moles/Vol] 22 mmol/L Normal 20-31 [facility] Comment on above: Performed By: #### C DP, BMP #### [facility] [address] [place] [address] Traffic Engineer: Mike Forde MD Creatinine [Mass/Vol] 0.7 mg/dL Normal 0.5-0.9 [facility] Comment on above: Performed By: #### C DP, BMP #### [facility] [address] [place] [address] Traffic Engineer: Mike Forde MD GFR/1.73 sq M.predicted among non-blacks MDRD (S/P/Bld) [Vol rate/Area] mL/min/{1.73_m2} Normal >60 [facility] Comment on above: Result Comment: These results [...] Performed By: #### C DP, BMP #### [facility] [address] [place] [address] Traffic Engineer: Mike Forde MD Glucose [Mass/Vol] 113 mg/dL High 70-99 [facility] Comment on above: Performed By: #### C DP, BMP #### [facility] [address] [place] [address] Traffic Engineer: Mike Forde MD Potassium [Moles/Vol] 3.4 mmol/L Low 3.7-5.3 [facility] Comment on above: Performed By: #### C DP, BMP #### [facility] [address] [place], [place] [phone] Traffic Engineer: Mike Forde MD Sodium [Moles/Vol] 135 mmol/L Normal 135-144 [facility] Comment on above: Performed By: #### C DP, BMP #### [facility] [address] [place], [place] [phone] Traffic Engineer: Mike Forde MD Urea nitrogen [Mass/Vol] 7 mg/dL Normal 6-20 [facility] Comment on above: Performed By: #### C DP, BMP #### [facility] [address] [place] [address] Traffic Engineer: Mike Forde MD CBC with Diffon 04-16-2023 Abs. Basophil 0.03 k/uL Normal 0.00-0.20 [facility] Comment on above: Performed By: #### C DP, BMP #### [facility] [address] [place] [phone] Traffic Engineer: Mike Forde MD Abs.Imm.Granulocyte 0.02 k/uL Normal 0.00-0.30 [facility] Comment on above: Performed By: #### C DP, BMP #### [facility] [address] [place], [place] [phone] Traffic Engineer: Mike Forde MD Abs.Neutrophil (Seg) 7.51 k/uL High 2.5-7.0 [facility] Comment on above: Performed By: #### C DP, BMP #### [facility] [address] [place], [place] [phone] Traffic Engineer: Mike Forde MD Basophils/100 WBC (Bld) 0 % Normal 0-2 [facility] Comment on above: Performed By: #### C DP, BMP #### [facility] [address] [place], [place] [phone] Traffic Engineer: Mike Forde MD Eosinophils (Bld) [#/Vol] 0.03 10*3/uL Normal 0.00-0.40 [facility] Comment on above: Performed By: #### C DP, BMP #### [facility] [address] [place], [place] [phone] Traffic Engineer: Mike Forde MD Eosinophils/100 WBC (Bld) 0 % Normal 0-5 [facility] Comment on above: Performed By: #### C DP, BMP #### [facility] [address] [place] [phone] Traffic Engineer: Mike Forde MD Erythrocyte distribution width (RBC) [Ratio] 11.8 % Low 12.1-15.2 [facility] Comment on above: Performed By: #### C DP, BMP #### [facility] [address] [place] [phone] Traffic Engineer: Mike Forde MD Hematocrit (Bld) [Volume fraction] 43.4 % Normal 36.0-46.0 [facility] Comment on above: Performed By: #### C DP, BMP #### [facility] [address] [place] [phone] Traffic Engineer: Mike Forde MD Hemoglobin (Bld) [Mass/Vol] 15.5 g/dL Normal 12.0-16.0 [facility] Comment on above: Performed By: #### C DP, BMP #### [facility] [address] [place], [place] [phone] Traffic Engineer: Mike Forde MD Immature granulocytes/100 WBC (Bld) 0 % Normal 0-5 [facility] Comment on above: Performed By: #### C DP, BMP #### [facility] [address] [place], [place] [phone] Traffic Engineer: Mike Forde MD Lymphocytes (Bld) [#/Vol] 2.33 10*3/uL Normal 1.00-4.80 [facility] Comment on above: Performed By: #### C DP, BMP #### [facility] [address] [place] [phone] Traffic Engineer: Mike Forde MD Lymphocytes/100 WBC (Bld) 22 % Normal 15-40 [facility] Comment on above: Performed By: #### C DP, BMP #### [facility] [address] [place] [phone] Traffic Engineer: Mike Forde MD MCH (RBC) [Entitic mass] 28.9 pg Normal 26.0-34.0 [facility] Comment on above: Performed By: #### C DP, BMP #### [facility] [address] [place] [address] Traffic Engineer: Mike Forde MD MCHC (RBC) [Mass/Vol] 35.7 g/dL Normal 31.0-37.0 [facility] Comment on above: Performed By: #### C DP, BMP #### [facility] [address] [place] [phone] Traffic Engineer: Mike Forde MD MCV (RBC) [Entitic vol] 80.8 fL Normal 80.0-100.0 [facility] Comment on above: Performed By: #### C DP, BMP #### [facility] [address] [place] [address] Traffic Engineer: Mike Forde MD Monocytes (Bld) [#/Vol] 0.88 10*3/uL Normal 0.00-1.00 [facility] Comment on above: Performed By: #### C DP, BMP #### [facility] [address] [place] [phone] Traffic Engineer: Mike Forde MD Monocytes/100 WBC (Bld) 8 % Normal 4-8 [facility] Comment on above: Performed By: #### C DP, BMP #### [facility] [address] [place], [place] [phone] ([phone] Traffic Engineer: Mike Forde MD Neutrophil (Seg) 70 % Normal 47-75 [facility] Comment on above: Performed By: #### C DP, BMP #### [facility] [address] [place], [place] [phone] ([phone] Traffic Engineer: Mike Forde MD Platelet mean volume (Bld) [Entitic vol] 10.5 fL Normal 6.0-12.0 [facility] Comment on above: Performed By: #### C DP, BMP #### [facility] [address] [place] [address] Traffic Engineer: Mike Forde MD Platelets (Bld) [#/Vol] 279 10*3/uL Normal 140-450 [facility] Comment on above: Performed By: #### C DP, BMP #### [facility] [address] [place] [phone] ([phone] Traffic Engineer: Mike Forde MD RBC (Bld) [#/Vol] 5.37 10*6/uL High 4.00-5.20 [facility] Comment on above: Performed By: #### C DP, BMP #### [facility] [address] [place] [phone] ([phone] Traffic Engineer: Mike Forde MD WBC (Bld) [#/Vol] 10.8 10*3/uL Normal 3.5-11.0 [facility] Comment on above: Performed By: #### C DP, BMP #### [facility] [address] [place] [address] (547) Traffic Engineer: Mike Forde MD CBC with Auto Differentialon 12-13-2021 Absolute Eos # 0.00 [facility] Absolute Lymph # 1.90 [facility] Absolute [place] # 0.50 [facility] Basophils (Bld) [#/Vol] 0.00 10*3/uL [facility] Basophils/100 WBC (Bld) 0 % 0 - 2 % [facility] Differential Type YES [facility] Eosinophils/100 WBC (Bld) 0 % 0 - 5 % [facility] Hematocrit (Bld) [Volume fraction] 43.5 % 36 - 46 % [facility] Hemoglobin (Bld) [Mass/Vol] 14.6 g/dL 12.0 - 16.0 g/dL [facility] Lymphocytes/100 WBC (Bld) 21 % 15 - 40 % [facility] MCH (RBC) [Entitic mass] 28.9 pg 26 - 34 pg [facility] MCHC (RBC) [Mass/Vol] 33.5 g/dL 31 - 37 g/dL [facility] MCV (RBC) [Entitic vol] 86.2 fL 80 - 100 fL [facility] Monocytes/100 WBC (Bld) 5 % 4 - 8 % [facility] Platelet distribution width (Bld) [Ratio] 12.3 % 12.1 - 15.2 % [facility] Platelets (Bld) [#/Vol] 265 10*3/uL [facility] RBC (Bld) [#/Vol] 5.05 10*6/uL 4.0 - 5.2 m/uL [facility] Segmented neutrophils/100 WBC (Bld) 74 % 47 - 75 % [facility] Segs Absolute 6.60 [facility] WBC (Bld) [#/Vol] 9.1 10*3/uL [facility] Comprehensive Metabolic Pane davi 12-13-2021 Albumin [Mass/Vol] 4.3 g/dL 3.5 - 5.2 g/dL [facility] ALP (Bld) [Catalytic activity/Vol] 77 U/L 35 - 104 U/L [facility] ALT [Catalytic activity/Vol] 23 U/L 5 - 33 U/L [facility] Anion gap [Moles/Vol] 11 mmol/L 9 - 17 mmol/L [facility] AST [Catalytic activity/Vol] 15 U/L <32 [facility] Bilirubin [Mass/Vol] 0.51 mg/dL 0.30 - 1.20 mg/dL [facility] Calcium [Mass/Vol] 9.6 mg/dL 8.6 - 10.4 mg/dL [facility] Chloride [Moles/Vol] 102 mmol/L 98 - 107 mmol/L [facility] CO2 [Moles/Vol] 25 mmol/L 20 - 31 mmol/L [facility] Creatinine [Mass/Vol] 0.77 mg/dL 0.50 - 0.90 mg/dL [facility] Free PSA/Total PSA [Mass fraction] 7.4 g/dL 6.4 - 8.3 g/dL [facility] GFR >60 >60 mL/min [facility] GFR Non- >60 >60 mL/min [facility] GFR/1.73 sq M.predicted MDRD (S/P/Bld) [Vol rate/Area] [facility] Comment on above: Average GFR for 20-2 9 years old: 116 mL/min/1.73sq m Chronic Kidney Disease: <60 mL/min/1.73sq m Kidney failure: <15 mL/min/1.73sq m eGFR calculated using average adult body mass. Additional eGFR calculator available at: http://www.[employer]/multiple_crcl_2012.htm Glucose [Mass/Vol] 93 mg/dL 70 - 99 mg/dL [facility] Potassium [Moles/Vol] 4.2 mmol/L 3.7 - 5.3 mmol /L [facility] Sodium [Moles/Vol] 138 mmol/L 135 - 144 mmol/L [facility] Urea nitrogen (BldV) [Mass/Vol] 9 mg/dL 6 - 20 mg/dL [facility] Urea nitrogen/Creatinine (Bld) [Mass ratio] 12 [facility] Encounters Encounter Date Encounter Type [...] Emergency department patient visit ASHLEYEZIO Lozano MARYANN [facility] Start: 04-16-2023 End: 04-17-2023 Emergency department patient visit ARPIT PAREKH [facility] Start: 12-13-2021 End: 12-13-2021 Subsequent hospital visit [...] DTaP/Tdap/Td vaccine (3 - Td or Tdap) [facility] Start: 12-13-2022 Depression Screen Depression Screen [facility] Start: 03-14-2022 COVID-19 Vaccine (3 - Booster for Pfizer series) COVID-19 Vaccine (3 - Booster for Pfizer series) [facility] Start: 03-10-2022 Influenza vaccination Flu vaccine (S angelo Ended) [facility] Start: 01-11-2022 End: 01-11-2022 Patient encounter procedure 01/11/2022 Office Visit Family Medicine 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 APRN - CNP [address] [place] [phone] [facility] Start: 2019 Screening for malign ant neoplasm of cervix Pap smear [facility] Start: 03-10-2019 Influenza vaccination Flu vaccine (# 1) [place], [place] Start: 2017 DTaP/Tdap/Td vaccine (1 - Tdap) DTaP/Tdap/Td vaccine (1 - Tdap) [place], [place] Start: 2016 Hepatitis C screening Hepatitis C sc reen [facility] Start: 2014 Chlamydia screen Chlamydia screen [place], [place] Start: 2014 Screening for Chlamy nathalie trachomatis Chlamydia screen [facility] Start: 2013 HIV screen HIV screen [place], [place] Start: 2013 HIV screening HIV screen [facility] Start: 2013 HPV vaccine (1 - Fem dana 3-dose series) HPV vaccine (1 - Female 3-dose series) [place], [place] Start: 2011 Varicella Vaccine (1 of 2 - 13+ 2-dose series) Varicella Vaccine (1 of 2 - 13+ 2-dose series) [place], [place] Start: 2009 HPV vaccine (1 - 2-d ose series) HPV vaccine (1 - 2-dose series) [facility] Start: 1999 Varicella vaccine (1 of 2 - 2-dose childhood series) Varicella vaccine (1 of 2 - 2-dose childhood series) [facility] End: 12-13-2021 CBC W Auto Differential panel - Blood CBC with Auto Differential Lab Routine Diarrhea, unspecified type Blood in stool, gustavo 1 Occurrences starting 12/13/2021 until 12/13/2021 [facility] Work Phone: Comment on above: 1 Occurrences starti ng 12/13/2021 until 12/13/2021 End: 12-13-2021 Celiac Disease Panel Celiac Disease Panel Lab Routine Diarrhea, unspecified type Abdominal cramping 1 Occurrences starting 12/13/2021 until 12/13/2021 [facility] Work Phone: Comment on above: 1 Occurrences starti ng 12/13/2021 until 12/13/2021 End: 12-13-2021 [facility] [employer] Work Phone: Comment on above: Once for 1 Occurrenc es starting 12/13/2021 until 12/13/2021 End: 12-13-2021 Comprehensive metabolic 2000 panel - Serum or Plasma Comprehensive Metabolic Panel Lab Routine Blood in stool, gustavo Gastroesophageal reflux disease without esophagitis 1 Occurrences starting 12/13/2021 until 12/13/2021 [facility] [employer] - how to [place] Phone: Comment on above: 1 Occurrences starti ng 12/13/2021 until 12/13/2021 End: 03-01-2019 Varicella Zoster Antibody, IgG Varicella Zoster Antibody, IgG Lab Routine Need for varicella vaccine 1 Occurrences starting 03/01/2019 until 03/01/2019 [place], [place] Comment on above: 1 Occurrences starti ng 03/01/2019 until 03/01/2019 Varicella Zoster Antibody, IgG Varicella Zoster Antibody, IgG Lab Routine Need for varicella vaccine 03/01/2019 11:50 AM EDT [place], [place] Immunizations Immunization Date Immunization Notes Care Provider Rohit mcnally 09-18-2021 COVID-19, Pfizer Pur ple top, DILUTE for use, 12+ yrs, 30mcg/0.3mL dose 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 Work Phone: [facility] [employer] Work Phone: 11-27-2019 Hepatitis B vaccine (recombinant), CpG adjuvanted 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 Work Phone: [facility] [employer] Work Phone: 11-27-2019 tetanus toxoid, redu gordon diphtheria toxoid, and acellular pertussis vaccine, adsorbed 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[employer] - [employer] Work Phone: [facility] [employer] Work Phone: 03-27-2019 hepatitis B vaccine, adult dosage 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[employer] - [employer] Work Phone: [facility] [employer] Work Phone: 03-27-2019 measles, mumps and rubella virus vaccine 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 APRN - [facility] Work Phone: [facility] [employer] Work Phone: 03-03-2019 measles, mumps and rubella virus vaccine 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[employer] - [facility] Work Phone: [facility] [employer] Work Phone: 02-25-2019 hepatitis B vaccine, adult dosage 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 [facility] [employer] [facility] Payers Date Payer Category Payer Unknown [id number] 2022 Private Health Insurance [id number] 2018 Unknown BCBS [place] - [place] P PO xxxxxxxxxxxx 2018-Present [address] [place] [address] xxxxxxxxxxxx [id number] 2018 Unknown [id number] 1998 Unknown [id number] 1998 Unknown [id number] .174 1998 Unknown [id number] .1259 1998 Unknown [id number] .1259 1998 Unknown [id number] .1259 1998 Unknown [id number] .1259 1998 Unknown [id number] .1259 1998 Unknown [id number] .1259 Social History Date Type Detail Facility Start: 04-25-2016 End: 11-26-2018 Tobacco smoking status NHIS Never smoker [place], [place] Start: 11-26-2018 Alcohol intake No Rachel [place], [place] Start: 2000 Sex Assigned At Not on file M [place], [place] Start: 04-25-2016 Tobacco use and exposure Smokeless tobacco non-user [employer] Phone: Start: 12-13-2021 Alcohol intake Current non-dr repairer general of alcohol (finding) [employer] Phone: Start: 12-13-2021 History SDOH Financial 5 [employer] Phone: Start: 12-13-2021 History 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 1 [employer] Phone: Evaluation note Note Date & Type Note Facility Evaluation note Diagnosis Blood in stool, gustavo Blood in stool Gastroesophageal reflux disease without esophagitis Esophageal reflux Diarrhea, unspecified type Abdominal cramping Abdominal pain, unspecified site documented in this encounter [employer] Phone: Assessments Diagnosis Need for varicella vaccine Need for prophylactic vaccination and inoculation against varicella Advance Directives No Advanced Directives Records FoundDocuments on File Type Date Recorded 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 Paving Inspector Expl anation Advance Directives and Living Will Power of Smoke Control Supervisor Documents on File Type Date Recorded Patient Paving Inspector Expl anation ACP-Advance Directive ACP-Power of Smoke Control Supervisor Summary Purpose Family History No Family History Records FoundNo Family History Records Found Additional Source Comments Care Teams (unrecognized sec tion and content) [employer] Developer Relationship Specialty Start Date End Date 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, DO - [employer] [address] [place] [address] PCP - General Nurse Practitioner 11/23/16 INFORMATION SOURCE (unrecogn ized section and content) DATE CREATED AUTHOR 06/02/2023 Rachel allen DATE CREATED AUTHOR AUTHORSera GAGNON 10/06/2023 [facility] FOR RECORDS PERTAINING TO PATIENTS WHO [...] BE BASED ON THE PRIMARY CLINICAL RECORDS. [employer] provides no warranty or guarantee of the accuracy or completeness of information in this document.
== END 2023-10-09 07:59 | disposition home or self-care (01) ==
LOC: NOMS 07:59
PROVIDERS: Visit Provider Physician Assistant
DX: O36.63X0 Maternal care for excessive fetal growth, third trimester, not applicable or unspecified (principal); Z3A.34 34 weeks gestation of pregnancy
CPT/HCPCS: 76816

== ENCOUNTER 2023-10-11 07:20 | Outpatient (OUT) | payer BC, OTHER, SELFPAY ==
--- OUTSIDE RECORDS SUMMARY | 2023-10-11 07:43 | XMS_ITS | CCD ---
Author Organization [facility] Care Team Providers Care Construction Driver Name Role Phone 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 Primary [...] 05-30-2023 Abs. Basophil 0.01 k/uL Normal 0.00-0.20 [facility] Comment on above: Performed By: #### C DP, CP #### [facility] [address] [place] [address] Software Publisher: Mike Forde MD Abs.Imm.Granulocyte 0.01 k/uL Normal 0.00-0.30 [facility] Comment on above: Performed By: #### C DP, CP #### [facility] [address] [place] [address] Software Publisher: Mike Forde MD Abs.Neutrophil (Seg) 6.24 k/uL Normal 2.5-7.0 [facility] Comment on above: Performed By: #### C DP, CP #### [facility] [address] [place] [address] Software Publisher: Mike Forde MD Basophils/100 WBC (Bld) 0 % Normal 0-2 [facility] Comment on above: Performed By: #### C DP, CP #### [facility] [address] [place] [address] Software Publisher: Mike Forde MD Eosinophils (Bld) [#/Vol] 0.00 10*3/uL Normal 0.00-0.40 [facility] Comment on above: Performed By: #### C DP, CP #### [facility] [address] [place] [address] Software Publisher: Mike Forde MD Eosinophils/100 WBC (Bld) 0 % Normal 0-5 [facility] Comment on above: Performed By: #### C DP, CP #### [facility] [address] [place] [address] Software Publisher: Mike Forde MD Erythrocyte distribution width (RBC) [Ratio] 11.9 % Low 12.1-15.2 [facility] Comment on above: Performed By: #### C DP, CP #### [facility] [address] [place] [address] Software Publisher: Mike Forde MD Hematocrit (Bld) [Volume fraction] 41.1 % Normal 36.0-46.0 [facility] Comment on above: Performed By: #### C DP, CP #### [facility] [address] [place] [id number] Software Publisher: Mike Forde MD Hemoglobin (Bld) [Mass/Vol] 14.5 g/dL Normal 12.0-16.0 [facility] Comment on above: Performed By: #### C DP, CP #### [facility] [address] [place] [address] Software Publisher: Mike Forde MD Immature granulocytes/100 WBC (Bld) 0 % Normal 0-5 [facility] Comment on above: Performed By: #### C DP, CP #### [facility] [address] [place] [id number] Software Publisher: Mike Forde MD Lymphocytes (Bld) [#/Vol] 1.74 10*3/uL Normal 1.00-4.80 [facility] Comment on above: Performed By: #### C DP, CP #### [facility] [address] [place] [address] Software Publisher: Mike Forde MD Lymphocytes/100 WBC (Bld) 21 % Normal 15-40 [facility] Comment on above: Performed By: #### C DP, CP #### [facility] [address] [place] [address] Software Publisher: Mike Forde MD MCH (RBC) [Entitic mass] 29.2 pg Normal 26.0-34.0 [facility] Comment on above: Performed By: #### C DP, CP #### [facility] [address] [place] [address] Software Publisher: Mike Forde MD MCHC (RBC) [Mass/Vol] 35.3 g/dL Normal 31.0-37.0 [facility] Comment on above: Performed By: #### C DP, CP #### [facility] [address] [place] [address] Software Publisher: Mike Forde MD MCV (RBC) [Entitic vol] 82.9 fL Normal 80.0-100.0 [facility] Comment on above: Performed By: #### C DP, CP #### [facility] [address] [place] [id number] Software Publisher: Mike Forde MD Monocytes (Bld) [#/Vol] 0.50 10*3/uL Normal 0.00-1.00 [facility] Comment on above: Performed By: #### C DP, CP #### [facility] [address] [place] [address] Software Publisher: Mike Forde MD Monocytes/100 WBC (Bld) 6 % Normal 4-8 [facility] Comment on above: Performed By: #### C DP, CP #### [facility] [address] [place] [address] Software Publisher: Mike Forde MD Neutrophil (Seg) 73 % Normal 47-75 [facility] Comment on above: Performed By: #### C DP, CP #### [facility] [address] [place] [address] Software Publisher: Mike Forde MD Platelet mean volume (Bld) [Entitic vol] 10.4 fL Normal 6.0-12.0 [facility] Comment on above: Performed By: #### C DP, CP #### [facility] [address] [place] [address] (809) Software Publisher: Mike Forde MD Platelets (Bld) [#/Vol] 227 10*3/uL Normal 140-450 [facility] Comment on above: Performed By: #### C DP, CP #### [facility] [address] [place], [place] [phone] (702) Software Publisher: Mike Forde MD RBC (Bld) [#/Vol] 4.96 10*6/uL Normal 4.00-5.20 [facility] Comment on above: Performed By: #### C DP, CP #### [facility] [address] [place] [address] Software Publisher: Mike Forde MD WBC (Bld) [#/Vol] 8.5 10*3/uL Normal 3.5-11.0 [facility] Comment on above: Performed By: #### C DP, CP #### [facility] [address] [place] [address] Software Publisher: Mike Forde MD Comp Metabolic Profon 2022 Albumin [Mass/Vol] 4.2 g/dL Normal 3.5-5.2 [facility] Comment on above: Performed By: #### C DP, CP #### [facility] [address] [place] [address] Software Publisher: Mike Forde MD Alkaline Phos 48 U/L Normal 35-104 [facility] Comment on above: Performed By: #### C DP, CP #### [facility] [address] [place] [address] Software Publisher: Mike Forde MD ALT [Catalytic activity/Vol] 12 U/L Normal 5-33 [facility] Comment on above: Performed By: #### C DP, CP #### [facility] [address] [place] [address] Software Publisher: Mike Forde MD Anion gap [Moles/Vol] 15 mmol/L Normal 9-17 [facility] Comment on above: Performed By: #### C DP, CP #### [facility] [address] [place] [address] Software Publisher: Mike Forde MD AST [Catalytic activity/Vol] 11 U/L Normal <32 [facility] Comment on above: Performed By: #### C DP, CP #### [facility] [address] [place] [address] Software Publisher: Mike Forde MD Bilirubin [Mass/Vol] mg/dL Low 0.3-1.2 [facility] Comment on above: Performed By: #### C DP, CP #### [facility] [address] [place] [address] Software Publisher: Mike Forde MD BUN/CRE Ratio 14 Normal 9-20 [facility] Comment on above: Performed By: #### C DP, CP #### [facility] [address] [place] [address] Software Publisher: Mike Forde MD Calcium [Mass/Vol] 9.7 mg/dL Normal 8.6-10.4 [facility] Comment on above: Performed By: #### C DP, CP #### [facility] [address] [place] [address] Software Publisher: Mike Forde MD Chloride [Moles/Vol] 101 mmol/L Normal 98-107 [facility] Comment on above: Performed By: #### C DP, CP #### [facility] [address] [place], [place] [id number] Software Publisher: Mike Forde MD CO2 [Moles/Vol] 22 mmol/L Normal 20-31 [facility] Comment on above: Performed By: #### C DP, CP #### [facility] [address] [place], [place] [id number] Software Publisher: Mike Forde MD Creatinine [Mass/Vol] 0.5 mg/dL Normal 0.5-0.9 [facility] Comment on above: Performed By: #### C DP, CP #### [facility] [address] [place], [place] [id number] Software Publisher: Mike Forde MD GFR/1.73 sq M.predicted among non-blacks MDRD (S/P/Bld) [Vol rate/Area] mL/min/{1.73_m2} Normal >60 [facility] Comment on above: Result Comment: These [...] Performed By: #### C DP, CP #### [facility] [address] [place] [address] Software Publisher: Mike Forde MD Glucose [Mass/Vol] 90 mg/dL Normal 70-99 [facility] Comment on above: Performed By: #### C DP, CP #### [facility] [address] [place], [place] [phone] Software Publisher: Mike Forde MD Potassium [Moles/Vol] 3.5 mmol/L Low 3.7-5.3 [facility] Comment on above: Performed By: #### C DP, CP #### [facility] [address] [place], [place] [id number] Software Publisher: Mike Forde MD Protein [Mass/Vol] 7.5 g/dL Normal 6.4-8.3 [facility] Comment on above: Performed By: #### C DP, CP #### [facility] [address] [place], [place] [id number] Software Publisher: Mike Forde MD Sodium [Moles/Vol] 138 mmol/L Normal 135-144 [facility] Comment on above: Performed By: #### C DP, CP #### [facility] [address] [place], [place] [phone] Software Publisher: Mike Forde MD Urea nitrogen [Mass/Vol] 7 mg/dL Normal 6-20 [facility] Comment on above: Performed By: #### C DP, CP #### [facility] [address] [place], [place] [id number] Software Publisher: Mike Forde MD Basic Metabolic Profon 04-16 Anion gap [Moles/Vol] 15 mmol/L Normal 9-17 [facility] Comment on above: Performed By: #### C DP, BMP #### [facility] [address] [place], [place] [id number] Software Publisher: Mike Forde MD BUN/CRE Ratio 10 Normal 9-20 [facility] Comment on above: Performed By: #### C DP, BMP #### [facility] [address] [place], [place] [phone] Software Publisher: Mike Forde MD Calcium [Mass/Vol] 10.2 mg/dL Normal 8.6-10.4 [facility] Comment on above: Performed By: #### C DP, BMP #### [facility] [address] [place], [place] [id number] Software Publisher: Mike Forde MD Chloride [Moles/Vol] 98 mmol/L Normal 98-107 [facility] Comment on above: Performed By: #### C DP, BMP #### [facility] [address] [place] [address] Software Publisher: Mike Forde MD CO2 [Moles/Vol] 22 mmol/L Normal 20-31 [facility] Comment on above: Performed By: #### C DP, BMP #### [facility] [address] [place] [address] Software Publisher: Mike Forde MD Creatinine [Mass/Vol] 0.7 mg/dL Normal 0.5-0.9 [facility] Comment on above: Performed By: #### C DP, BMP #### [facility] [address] [place] [address] Software Publisher: Mike Forde MD GFR/1.73 sq M.predicted among non-blacks MDRD (S/P/Bld) [Vol rate/Area] mL/min/{1.73_m2} Normal >60 [facility] Comment on above: Result Comment: These [...] Performed By: #### C DP, BMP #### [facility] [address] [place] [address] Software Publisher: Mike Forde MD Glucose [Mass/Vol] 113 mg/dL High 70-99 [facility] Comment on above: Performed By: #### C DP, BMP #### [facility] [address] [place] [address] Software Publisher: Mike Forde MD Potassium [Moles/Vol] 3.4 mmol/L Low 3.7-5.3 [facility] Comment on above: Performed By: #### C DP, BMP #### [facility] [address] [place], [place] [id number] Software Publisher: Mike Forde MD Sodium [Moles/Vol] 135 mmol/L Normal 135-144 [facility] Comment on above: Performed By: #### C DP, BMP #### [facility] [address] [place], [place] [id number] Software Publisher: Mike Forde MD Urea nitrogen [Mass/Vol] 7 mg/dL Normal 6-20 [facility] Comment on above: Performed By: #### C DP, BMP #### [facility] [address] [place] [address] Software Publisher: Mike Forde MD CBC with Diffon 04-16-2023 Abs. Basophil 0.03 k/uL Normal 0.00-0.20 [facility] Comment on above: Performed By: #### C DP, BMP #### [facility] [address] [place] [id number] Software Publisher: Mike Forde MD Abs.Imm.Granulocyte 0.02 k/uL Normal 0.00-0.30 [facility] Comment on above: Performed By: #### C DP, BMP #### [facility] [address] [place], [place] [phone] Software Publisher: Mike Forde MD Abs.Neutrophil (Seg) 7.51 k/uL High 2.5-7.0 [facility] Comment on above: Performed By: #### C DP, BMP #### [facility] [address] [place], [place] [phone] Software Publisher: Mike Forde MD Basophils/100 WBC (Bld) 0 % Normal 0-2 [facility] Comment on above: Performed By: #### C DP, BMP #### [facility] [address] [place], [place] [id number] Software Publisher: Mike Forde MD Eosinophils (Bld) [#/Vol] 0.03 10*3/uL Normal 0.00-0.40 [facility] Comment on above: Performed By: #### C DP, BMP #### [facility] [address] [place], [place] [phone] Software Publisher: Mike Forde MD Eosinophils/100 WBC (Bld) 0 % Normal 0-5 [facility] Comment on above: Performed By: #### C DP, BMP #### [facility] [address] [place] [id number] Software Publisher: Mike Forde MD Erythrocyte distribution width (RBC) [Ratio] 11.8 % Low 12.1-15.2 [facility] Comment on above: Performed By: #### C DP, BMP #### [facility] [address] [place] [id number] Software Publisher: Mike Forde MD Hematocrit (Bld) [Volume fraction] 43.4 % Normal 36.0-46.0 [facility] Comment on above: Performed By: #### C DP, BMP #### [facility] [address] [place] [id number] Software Publisher: Mike Forde MD Hemoglobin (Bld) [Mass/Vol] 15.5 g/dL Normal 12.0-16.0 [facility] Comment on above: Performed By: #### C DP, BMP #### [facility] [address] [place], [place] [id number] Software Publisher: Mike Forde MD Immature granulocytes/100 WBC (Bld) 0 % Normal 0-5 [facility] Comment on above: Performed By: #### C DP, BMP #### [facility] [address] [place], [place] [id number] Software Publisher: Mike Forde MD Lymphocytes (Bld) [#/Vol] 2.33 10*3/uL Normal 1.00-4.80 [facility] Comment on above: Performed By: #### C DP, BMP #### [facility] [address] [place] [id number] Software Publisher: Mike Forde MD Lymphocytes/100 WBC (Bld) 22 % Normal 15-40 [facility] Comment on above: Performed By: #### C DP, BMP #### [facility] [address] [place] [id number] Software Publisher: Mike Forde MD MCH (RBC) [Entitic mass] 28.9 pg Normal 26.0-34.0 [facility] Comment on above: Performed By: #### C DP, BMP #### [facility] [address] [place] [address] Software Publisher: Mike Forde MD MCHC (RBC) [Mass/Vol] 35.7 g/dL Normal 31.0-37.0 [facility] Comment on above: Performed By: #### C DP, BMP #### [facility] [address] [place] [id number] Software Publisher: Mike Forde MD MCV (RBC) [Entitic vol] 80.8 fL Normal 80.0-100.0 [facility] Comment on above: Performed By: #### C DP, BMP #### [facility] [address] [place] [address] Software Publisher: Mike Forde MD Monocytes (Bld) [#/Vol] 0.88 10*3/uL Normal 0.00-1.00 [facility] Comment on above: Performed By: #### C DP, BMP #### [facility] [address] [place] [id number] Software Publisher: Mike Forde MD Monocytes/100 WBC (Bld) 8 % Normal 4-8 [facility] Comment on above: Performed By: #### C DP, BMP #### [facility] [address] [place], [place] [phone] (145) Software Publisher: Mike Forde MD Neutrophil (Seg) 70 % Normal 47-75 [facility] Comment on above: Performed By: #### C DP, BMP #### [facility] [address] [place], [place] [phone] (050) Software Publisher: Mike Forde MD Platelet mean volume (Bld) [Entitic vol] 10.5 fL Normal 6.0-12.0 [facility] Comment on above: Performed By: #### C DP, BMP #### [facility] [address] [place] [address] Software Publisher: Mike Forde MD Platelets (Bld) [#/Vol] 279 10*3/uL Normal 140-450 [facility] Comment on above: Performed By: #### C DP, BMP #### [facility] [address] [place] [address] (079) Software Publisher: Mike Forde MD RBC (Bld) [#/Vol] 5.37 10*6/uL High 4.00-5.20 [facility] Comment on above: Performed By: #### C DP, BMP #### [facility] [address] [place] [address] (987) Software Publisher: Mike Forde MD WBC (Bld) [#/Vol] 10.8 10*3/uL Normal 3.5-11.0 [facility] Comment on above: Performed By: #### C DP, BMP #### [facility] [address] [place] [address] (864) Software Publisher: Mike Forde MD CBC with Auto Differentialon 12-13-2021 Absolute Eos # 0.00 [facility] Absolute Lymph # 1.90 [facility] Absolute Gove # 0.50 [facility] Basophils (Bld) [#/Vol] 0.00 10*3/uL [facility] Basophils/100 WBC (Bld) 0 % 0 - 2 % [facility] Differential Type YES [facility] Eosinophils/100 WBC (Bld) 0 % 0 - 5 % [facility] Hematocrit (Bld) [Volume fraction] 43.5 % 36 - 46 % [facility] Hemoglobin (Bld) [Mass/Vol] 14.6 g/dL 12.0 - 16.0 g/dL [facility] Lymphocytes/100 WBC (Bld) 21 % 15 - 40 % [facility] MCH (RBC) [Entitic mass] 28.9 pg 26 - [address] [facility] MCHC (RBC) [Mass/Vol] 33.5 g/dL 31 - 37 g/dL [facility] MCV (RBC) [Entitic vol] 86.2 fL 80 - [address] [facility] Monocytes/100 WBC (Bld) 5 % 4 - 8 % [facility] Platelet distribution width (Bld) [Ratio] 12.3 % 12.1 - 15.2 % [facility] Platelets (Bld) [#/Vol] 265 10*3/uL [facility] RBC (Bld) [#/Vol] 5.05 10*6/uL 4.0 - 5.2 m/uL [facility] Segmented neutrophils/100 WBC (Bld) 74 % 47 - 75 % [facility] Segs Absolute 6.[address] [facility] WBC (Bld) [#/Vol] 9.1 10*3/uL [facility] Comprehensive Metabolic Pane davi 12-13-2021 Albumin [Mass/Vol] 4.3 g/dL 3.5 - 5.2 g/dL [facility] ALP (Bld) [Catalytic activity/Vol] 77 U/L 35 - 104 U/L [facility] ALT [Catalytic activity/Vol] 23 U/L 5 - 33 U/L [facility] Anion gap [Moles/Vol] 11 mmol/L 9 - 17 mmol/L [facility] AST [Catalytic activity/Vol] 15 U/L <[address] [facility] Bilirubin [Mass/Vol] 0.51 mg/dL 0.30 - 1.20 mg/dL [facility] Calcium [Mass/Vol] 9.6 mg/dL 8.6 - 10.4 mg/dL [facility] Chloride [Moles/Vol] 102 mmol/L 98 - 107 mmol/L [facility] CO2 [Moles/Vol] 25 mmol/L 20 - 31 mmol/L [facility] Creatinine [Mass/Vol] 0.77 mg/dL 0.50 - 0.90 mg/dL [facility] Free PSA/Total PSA [Mass fraction] 7.4 g/dL 6.4 - 8.3 g/dL [facility] GFR >60 >60 mL/min [facility] GFR Non- >60 >60 mL/min [facility] GFR/1.73 sq M.predicted MDRD (S/P/Bld) [Vol rate/Area] [facility] Comment on above: Average GFR for 20-2 9 years old: 116 mL/min/1.73sq m Chronic Kidney Disease: <60 mL/min/1.73sq m Kidney failure: <15 mL/min/1.73sq m eGFR calculated using average adult body mass. Additional eGFR calculator available at: http://www.[employer]multiple_crcl_2012.htm Glucose [Mass/Vol] 93 mg/dL 70 - 99 mg/dL [facility] Potassium [Moles/Vol] 4.2 mmol/L 3.7 - 5.3 mmol /L [facility] Sodium [Moles/Vol] 138 mmol/L 135 - 144 mmol/L [facility] Urea nitrogen (BldV) [Mass/Vol] 9 mg/dL 6 - 20 mg/dL [facility] Urea nitrogen/Creatinine (Bld) [Mass ratio] 12 [facility] Encounters Encounter Date Encounter Type [...] patient visit ASHLEYEZIO Lozano MARYANN [facility] Start: 04-16-2023 End: 04-17-2023 Emergency department patient visit ARPIT PAREKH [facility] Start: 12-13-2021 End: 12-13-2021 Subsequent hospital [...] DTaP/Tdap/Td vaccine (3 - Td or Tdap) [facility] Start: 12-13-2022 Depression Screen Depression Screen [facility] Start: 03-14-2022 COVID-19 Vaccine (3 - Booster for Pfizer series) COVID-19 Vaccine (3 - Booster for Pfizer series) [facility] Start: 03-10-2022 Influenza vaccination Flu vaccine (S angelo Ended) [facility] Start: 01-11-2022 End: 01-11-2022 Patient encounter procedure 01/11/2022 Office Visit Family Medicine 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 APRN - CNP [address] [place] [phone] [facility] Start: 2019 Screening for malign ant neoplasm of cervix Pap smear [facility] Start: 03-10-2019 Influenza vaccination Flu vaccine (# 1) [place], [place] Start: 2017 DTaP/Tdap/Td vaccine (1 - Tdap) DTaP/Tdap/Td vaccine (1 - Tdap) [place], [place] Start: 2016 Hepatitis C screening Hepatitis C sc reen [facility] Start: 2014 Chlamydia screen Chlamydia screen [place], [place] Start: 2014 Screening for Chlamy nathalie trachomatis Chlamydia screen [facility] Start: 2013 HIV screen HIV screen [place], [place] Start: 2013 HIV screening HIV screen [facility] Start: 2013 HPV vaccine (1 - Fem dana 3-dose series) HPV vaccine (1 - Female 3-dose series) [place], [place] Start: 2011 Varicella Vaccine (1 of 2 - 13+ 2-dose series) Varicella Vaccine (1 of 2 - 13+ 2-dose series) [place], [place] Start: 2009 HPV vaccine (1 - 2-d ose series) HPV vaccine (1 - 2-dose series) [facility] Start: 1999 Varicella vaccine (1 of 2 - 2-dose childhood series) Varicella vaccine (1 of 2 - 2-dose childhood series) [facility] End: 12-13-2021 CBC W Auto Differential panel - Blood CBC with Auto Differential Lab Routine Diarrhea, unspecified type Blood in stool, gustavo 1 Occurrences starting 12/13/2021 until 12/13/[address] [facility] Work Phone: Comment on above: 1 Occurrences starti ng 12/13/2021 until 12/13/2021 End: 12-13-2021 Celiac Disease Panel Celiac Disease Panel Lab Routine Diarrhea, unspecified type Abdominal cramping 1 Occurrences starting 12/13/2021 until 12/13/[address] [facility] Work Phone: Comment on above: 1 Occurrences starti ng 12/13/2021 until 12/13/2021 End: 12-13-2021 Celiac [facility] [employer] Work Phone: Comment on above: Once for 1 Occurrenc es starting 12/13/2021 until 12/13/2021 End: 12-13-2021 Comprehensive metabolic 2000 panel - Serum or Plasma Comprehensive Metabolic Panel Lab Routine Blood in stool, gustavo Gastroesophageal reflux disease without esophagitis 1 Occurrences starting 12/13/2021 until 12/13/2021 [facility] [employer] Phone: Comment on above: 1 Occurrences starti ng 12/13/2021 until 12/13/2021 End: 03-01-2019 Varicella Zoster Antibody, IgG Varicella Zoster Antibody, IgG Lab Routine Need for varicella vaccine 1 Occurrences starting 03/01/2019 until 03/01/2019 [place], [place] Comment on above: 1 Occurrences starti ng 03/01/2019 until 03/01/2019 Varicella Zoster Antibody, IgG Varicella Zoster Antibody, IgG Lab Routine Need for varicella vaccine 03/01/2019 11:50 AM EDT [place], [place] Immunizations Immunization Date Immunization Notes Care Provider Rohit mcnally 09-18-2021 COVID-19, Pfizer Pur ple top, DILUTE for use, 12+ yrs, 30mcg/0.3mL dose 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 [employer] PREPARATOR - [employer] Work Phone: [facility] [employer] Work Phone: 11-27-2019 Hepatitis B vaccine (recombinant), CpG adjuvanted 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 [employer] PREPARATOR - [employer] Work Phone: [facility] [employer] Work Phone: 11-27-2019 tetanus toxoid, redu gordon diphtheria toxoid, and acellular pertussis vaccine, adsorbed 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 ART PREPARATOR - INS[employer] Work Phone: [facility] [employer] Work Phone: 03-27-2019 hepatitis B vaccine, adult dosage 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 ART PREPARATOR - [employer] Work Phone: [facility] [employer] Work Phone: 03-27-2019 measles, mumps and rubella virus vaccine 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 APRN - [facility] Work Phone: [facility] [employer] Work Phone: 03-03-2019 measles, mumps and rubella virus vaccine 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 ART PREPARATOR - [facility] Work Phone: [facility] [employer] Work Phone: 02-25-2019 hepatitis B vaccine, adult dosage 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 [facility] [employer] [facility] Payers Date Payer Category Payer Unknown [id number] 2022 Private Health Insurance [id number] 2018 Unknown BCBS [place] - [place] P PO xxxxxxxxxxxx 2018-Present [address] [place] [address] xxxxxxxxxxxx [id number] 2018 Unknown [id number] 1998 Unknown [id number] 1998 Unknown [id number] 1998 Unknown [id number] .1259 1998 Unknown [id number] .1259 1998 Unknown [id number] .1259 1998 Unknown [id number] .1259 1998 Unknown [id number] .1259 1998 Unknown [id number] .1259 Social History Date Type Detail Facility Start: 04-25-2016 End: 11-26-2018 Tobacco smoking status NHIS Never smoker [place], [place] Start: 11-26-2018 Alcohol intake No Rachel [place], [place] Start: 1998 Sex Assigned At Not on file M [place], [place] Start: 04-25-2016 Tobacco use and exposure Smokeless tobacco non-user [employer] Phone: Start: 12-13-2021 Alcohol intake Current non-dr grease monkey of alcohol (finding) [employer] Phone: Start: 12-13-2021 History SDOH Financial 5 [employer] Phone: Start: 12-13-2021 History 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 1 [employer] Phone: Evaluation note Note Date & Type Note Facility Evaluation note Diagnosis Blood in stool, gustavo Blood in stool Gastroesophageal reflux disease without esophagitis Esophageal reflux Diarrhea, unspecified type Abdominal cramping Abdominal pain, unspecified site documented in this encounter [employer] Phone: Assessments Diagnosis Need for varicella vaccine Need for prophylactic vaccination and inoculation against varicella Advance Directives No Advanced Directives Records FoundDocuments on File Type Date Recorded Patient Putter In Expl anation Advance Directives and Living Will Power of Reinsurance Analyst Documents on File Type Date Recorded Patient Putter In Expl anation ACP-Advance Directive ACP-Power of Reinsurance Analyst Summary Purpose Family History No Family History Records FoundNo Family History Records Found Additional Source Comments Care Teams (unrecognized sec tion and content) Construction Driver Relationship Specialty Start Date End Date 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, DO - INS[employer]OR [employer] [address] [place] [address] PCP - General Nurse Practitioner 11/23/16 INFORMATION SOURCE (unrecogn ized section and content) DATE CREATED AUTHOR 06/02/2023 Rachel allen DATE CREATED AUTHOR AUTHORSera GAGNON 10/09/2023 [facility] FOR RECORDS PERTAINING TO PATIENTS WHO [...] BE BASED ON THE PRIMARY CLINICAL RECORDS. [employer] provides no warranty or guarantee of the accuracy or completeness of information in this document.
[2023-10-11 11:08] VITALS: BP 114/66; PULSE 86
== END 2023-10-11 11:32 | disposition home or self-care (01) ==
LOC: FBCO 07:41 → FBC 11:04
PROVIDERS: Visit Provider Obstetrics & Gynecology
DX: O26.893 Other specified pregnancy related conditions, third trimester (principal)
CPT/HCPCS: 59025

== ENCOUNTER 2023-10-14 04:31 | Outpatient (OUT) | payer BC, OTHER, SELFPAY ==
--- OUTSIDE RECORDS SUMMARY | 2023-10-14 04:34 | XMS_ITS | CCD ---
Author Organization [facility] Care Team Providers [facility] Sales Trainer Name Role Phone 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 Primary Care Provider TERRNECE WOLF Attending Unavailable ARPIT PAREKH Primary Care [...] 05-30-2023 Abs. Basophil 0.01 k/uL Normal 0.00-0.20 [facility] Comment on above: Performed By: #### C DP, CP #### [facility] [address] [place] [address] Critical Systems Technician: Mike Forde MD Abs.Imm.Granulocyte 0.01 k/uL Normal 0.00-0.30 [facility] Comment on above: Performed By: #### C DP, CP #### [facility] [address] [place] [address] Critical Systems Technician: Mike Forde MD Abs.Neutrophil (Seg) 6.24 k/uL Normal 2.5-7.0 [facility] Comment on above: Performed By: #### C DP, CP #### [facility] [address] [place] [address] Critical Systems Technician: Mike Forde MD Basophils/100 WBC (Bld) 0 % Normal 0-2 [facility] Comment on above: Performed By: #### C DP, CP #### [facility] [address] [place] [address] Critical Systems Technician: Mike Forde MD Eosinophils (Bld) [#/Vol] 0.00 10*3/uL Normal 0.00-0.40 [facility] Comment on above: Performed By: #### C DP, CP #### [facility] [address] [place] [address] Critical Systems Technician: Mike Forde MD Eosinophils/100 WBC (Bld) 0 % Normal 0-5 [facility] Comment on above: Performed By: #### C DP, CP #### [facility] [address] [place] [address] Critical Systems Technician: Mike Forde MD Erythrocyte distribution width (RBC) [Ratio] 11.9 % Low 12.1-15.2 [facility] Comment on above: Performed By: #### C DP, CP #### [facility] [address] [place] [address] Critical Systems Technician: Mike Forde MD Hematocrit (Bld) [Volume fraction] 41.1 % Normal 36.0-46.0 [facility] Comment on above: Performed By: #### C DP, CP #### [facility] [address] [place] [id number] Critical Systems Technician: Mike Forde MD Hemoglobin (Bld) [Mass/Vol] 14.5 g/dL Normal 12.0-16.0 [facility] Comment on above: Performed By: #### C DP, CP #### [facility] [address] [place] [address] Critical Systems Technician: Mike Forde MD Immature granulocytes/100 WBC (Bld) 0 % Normal 0-5 [facility] Comment on above: Performed By: #### C DP, CP #### [facility] [address] [place] [id number] Critical Systems Technician: Mike Forde MD Lymphocytes (Bld) [#/Vol] 1.74 10*3/uL Normal 1.00-4.80 [facility] Comment on above: Performed By: #### C DP, CP #### [facility] [address] [place] [address] Critical Systems Technician: Mike Forde MD Lymphocytes/100 WBC (Bld) 21 % Normal 15-40 [facility] Comment on above: Performed By: #### C DP, CP #### [facility] [address] [place] [address] Critical Systems Technician: Mike Forde MD MCH (RBC) [Entitic mass] 29.2 pg Normal 26.0-34.0 [facility] Comment on above: Performed By: #### C DP, CP #### [facility] [address] [place] [address] Critical Systems Technician: Mike Forde MD MCHC (RBC) [Mass/Vol] 35.3 g/dL Normal 31.0-37.0 [facility] Comment on above: Performed By: #### C DP, CP #### [facility] [address] [place] [address] Critical Systems Technician: Mike Forde MD MCV (RBC) [Entitic vol] 82.9 fL Normal 80.0-100.0 [facility] Comment on above: Performed By: #### C DP, CP #### [facility] [address] [place] [id number] Critical Systems Technician: Mike Forde MD Monocytes (Bld) [#/Vol] 0.50 10*3/uL Normal 0.00-1.00 [facility] Comment on above: Performed By: #### C DP, CP #### [facility] [address] [place] [address] Critical Systems Technician: Mike Forde MD Monocytes/100 WBC (Bld) 6 % Normal 4-8 [facility] Comment on above: Performed By: #### C DP, CP #### [facility] [address] [place] [address] Critical Systems Technician: Mike Forde MD Neutrophil (Seg) 73 % Normal 47-75 [facility] Comment on above: Performed By: #### C DP, CP #### [facility] [address] [place] [address] Critical Systems Technician: Mike Forde MD Platelet mean volume (Bld) [Entitic vol] 10.4 fL Normal 6.0-12.0 [facility] Comment on above: Performed By: #### C DP, CP #### [facility] [address] [place] [address] (480) Critical Systems Technician: Mike Forde MD Platelets (Bld) [#/Vol] 227 10*3/uL Normal 140-450 [facility] Comment on above: Performed By: #### C DP, CP #### [facility] [address] [place], [place] [id number] ([phone] Critical Systems Technician: Mike Forde MD RBC (Bld) [#/Vol] 4.96 10*6/uL Normal 4.00-5.20 [facility] Comment on above: Performed By: #### C DP, CP #### [facility] [address] [place] [address] Critical Systems Technician: Mike Forde MD WBC (Bld) [#/Vol] 8.5 10*3/uL Normal 3.5-11.0 [facility] Comment on above: Performed By: #### C DP, CP #### [facility] [address] [place] [address] Critical Systems Technician: Mike Forde MD Comp Metabolic Profon 2022 Albumin [Mass/Vol] 4.2 g/dL Normal 3.5-5.2 [facility] Comment on above: Performed By: #### C DP, CP #### [facility] [address] [place] [address] Critical Systems Technician: Mike Forde MD Alkaline Phos 48 U/L Normal 35-104 [facility] Comment on above: Performed By: #### C DP, CP #### [facility] [address] [place] [address] Critical Systems Technician: Mike Forde MD ALT [Catalytic activity/Vol] 12 U/L Normal 5-33 [facility] Comment on above: Performed By: #### C DP, CP #### [facility] [address] [place] [address] Critical Systems Technician: Mike Forde MD Anion gap [Moles/Vol] 15 mmol/L Normal 9-17 [facility] Comment on above: Performed By: #### C DP, CP #### [facility] [address] [place] [address] Critical Systems Technician: Mike Forde MD AST [Catalytic activity/Vol] 11 U/L Normal <32 [facility] Comment on above: Performed By: #### C DP, CP #### [facility] [address] [place] [address] Critical Systems Technician: Mike Forde MD Bilirubin [Mass/Vol] mg/dL Low 0.3-1.2 [facility] Comment on above: Performed By: #### C DP, CP #### [facility] [address] [place] [address] Critical Systems Technician: Mike Forde MD BUN/CRE Ratio 14 Normal 9-20 [facility] Comment on above: Performed By: #### C DP, CP #### [facility] [address] [place] [address] Critical Systems Technician: Mike Forde MD Calcium [Mass/Vol] 9.7 mg/dL Normal 8.6-10.4 [facility] Comment on above: Performed By: #### C DP, CP #### [facility] [address] [place] [address] Critical Systems Technician: Mike Forde MD Chloride [Moles/Vol] 101 mmol/L Normal 98-107 [facility] Comment on above: Performed By: #### C DP, CP #### [facility] [address] [place], [place] [id number] Critical Systems Technician: Mike Forde MD CO2 [Moles/Vol] 22 mmol/L Normal 20-31 [facility] Comment on above: Performed By: #### C DP, CP #### [facility] [address] [place], [place] [id number] Critical Systems Technician: Mike Forde MD Creatinine [Mass/Vol] 0.5 mg/dL Normal 0.5-0.9 [facility] Comment on above: Performed By: #### C DP, CP #### [facility] [address] [place], [place] [id number] Critical Systems Technician: Mike Forde MD GFR/1.73 sq M.predicted among non-blacks MDRD (S/P/Bld) [Vol rate/Area] mL/min/{1.73_m2} Normal >60 [facility] Comment on above: Result [...] DP, CP #### [facility] [address] [place] [address] Critical Systems Technician: Mike Forde MD Glucose [Mass/Vol] 90 mg/dL Normal 70-99 [facility] Comment on above: Performed By: #### C DP, CP #### [facility] [address] [place], [place] [address] Critical Systems Technician: Mike Forde MD Potassium [Moles/Vol] 3.5 mmol/L Low 3.7-5.3 [facility] Comment on above: Performed By: #### C DP, CP #### [facility] [address] [place], [place] [id number] Critical Systems Technician: Mike Forde MD Protein [Mass/Vol] 7.5 g/dL Normal 6.4-8.3 [facility] Comment on above: Performed By: #### C DP, CP #### [facility] [address] [place], [place] 1597190 Critical Systems Technician: Mike Forde MD Sodium [Moles/Vol] 138 mmol/L Normal 135-144 [facility] Comment on above: Performed By: #### C DP, CP #### [facility] [address] [place], [place] [id number] Critical Systems Technician: Mike Forde MD Urea nitrogen [Mass/Vol] 7 mg/dL Normal 6-20 [facility] Comment on above: Performed By: #### C DP, CP #### [facility] [address] [place], [place] [id number] Critical Systems Technician: Mike Forde MD Basic Metabolic Profon 04-16 Anion gap [Moles/Vol] 15 mmol/L Normal 9-17 [facility] Comment on above: Performed By: #### C DP, BMP #### [facility] [address] [place], [place] [id number] Critical Systems Technician: Mike Forde MD BUN/CRE Ratio 10 Normal 9-20 [facility] Comment on above: Performed By: #### C DP, BMP #### [facility] [address] [place], [place] [id number] Critical Systems Technician: Mike Forde MD Calcium [Mass/Vol] 10.2 mg/dL Normal 8.6-10.4 [facility] Comment on above: Performed By: #### C DP, BMP #### [facility] [address] [place], [place] [id number] Critical Systems Technician: Mike Forde MD Chloride [Moles/Vol] 98 mmol/L Normal 98-107 [facility] Comment on above: Performed By: #### C DP, BMP #### [facility] [address] [place] [address] Critical Systems Technician: Mike Forde MD CO2 [Moles/Vol] 22 mmol/L Normal 20-31 [facility] Comment on above: Performed By: #### C DP, BMP #### [facility] [address] [place] [address] Critical Systems Technician: Mike Forde MD Creatinine [Mass/Vol] 0.7 mg/dL Normal 0.5-0.9 [facility] Comment on above: Performed By: #### C DP, BMP #### [facility] [address] [place] [address] Critical Systems Technician: Mike Forde MD GFR/1.73 sq M.predicted among non-blacks MDRD (S/P/Bld) [Vol rate/Area] mL/min/{1.73_m2} Normal >60 [facility] Comment on above: Result [...] DP, BMP #### [facility] [address] [place] [address] Critical Systems Technician: Mike Forde MD Glucose [Mass/Vol] 113 mg/dL High 70-99 [facility] Comment on above: Performed By: #### C DP, BMP #### [facility] [address] [place] [address] Critical Systems Technician: Mike Forde MD Potassium [Moles/Vol] 3.4 mmol/L Low 3.7-5.3 [facility] Comment on above: Performed By: #### C DP, BMP #### [facility] [address] [place], [place] [id number] Critical Systems Technician: Mike Forde MD Sodium [Moles/Vol] 135 mmol/L Normal 135-144 [facility] Comment on above: Performed By: #### C DP, BMP #### [facility] [address] [place], [place] [id number] Critical Systems Technician: Mike Forde MD Urea nitrogen [Mass/Vol] 7 mg/dL Normal 6-20 [facility] Comment on above: Performed By: #### C DP, BMP #### [facility] [address] [place] [address] Critical Systems Technician: Mike Forde MD CBC with Diffon 04-16-2023 Abs. Basophil 0.03 k/uL Normal 0.00-0.20 [facility] Comment on above: Performed By: #### C DP, BMP #### [facility] [address] [place] [id number] Critical Systems Technician: Mike Forde MD Abs.Imm.Granulocyte 0.02 k/uL Normal 0.00-0.30 [facility] Comment on above: Performed By: #### C DP, BMP #### [facility] [address] [place], [place] [id number] Critical Systems Technician: Mike Forde MD Abs.Neutrophil (Seg) 7.51 k/uL High 2.5-7.0 [facility] Comment on above: Performed By: #### C DP, BMP #### [facility] [address] [place], [place] [id number] Critical Systems Technician: Mike Forde MD Basophils/100 WBC (Bld) 0 % Normal 0-2 [facility] Comment on above: Performed By: #### C DP, BMP #### [facility] [address] [place], [place] [id number] Critical Systems Technician: Mike Forde MD Eosinophils (Bld) [#/Vol] 0.03 10*3/uL Normal 0.00-0.40 [facility] Comment on above: Performed By: #### C DP, BMP #### [facility] [address] [place], [place] [id number] Critical Systems Technician: Mike Forde MD Eosinophils/100 WBC (Bld) 0 % Normal 0-5 [facility] Comment on above: Performed By: #### C DP, BMP #### [facility] [address] [place] [id number] Critical Systems Technician: Mike Forde MD Erythrocyte distribution width (RBC) [Ratio] 11.8 % Low 12.1-15.2 [facility] Comment on above: Performed By: #### C DP, BMP #### [facility] [address] [place] [id number] Critical Systems Technician: Mike Forde MD Hematocrit (Bld) [Volume fraction] 43.4 % Normal 36.0-46.0 [facility] Comment on above: Performed By: #### C DP, BMP #### [facility] [address] [place] [id number] Critical Systems Technician: Mike Forde MD Hemoglobin (Bld) [Mass/Vol] 15.5 g/dL Normal 12.0-16.0 [facility] Comment on above: Performed By: #### C DP, BMP #### [facility] [address] [place], [place] [id number] Critical Systems Technician: Mike Forde MD Immature granulocytes/100 WBC (Bld) 0 % Normal 0-5 [facility] Comment on above: Performed By: #### C DP, BMP #### [facility] [address] [place], [place] [id number] Critical Systems Technician: Mike Forde MD Lymphocytes (Bld) [#/Vol] 2.33 10*3/uL Normal 1.00-4.80 [facility] Comment on above: Performed By: #### C DP, BMP #### [facility] [address] [place] [id number] Critical Systems Technician: Mike Forde MD Lymphocytes/100 WBC (Bld) 22 % Normal 15-40 [facility] Comment on above: Performed By: #### C DP, BMP #### [facility] [address] [place] [id number] Critical Systems Technician: Mike Forde MD MCH (RBC) [Entitic mass] 28.9 pg Normal 26.0-34.0 [facility] Comment on above: Performed By: #### C DP, BMP #### [facility] [address] [place] [address] Critical Systems Technician: Mike Forde MD MCHC (RBC) [Mass/Vol] 35.7 g/dL Normal 31.0-37.0 [facility] Comment on above: Performed By: #### C DP, BMP #### [facility] [address] [place] [id number] Critical Systems Technician: Mike Forde MD MCV (RBC) [Entitic vol] 80.8 fL Normal 80.0-100.0 [facility] Comment on above: Performed By: #### C DP, BMP #### [facility] [address] [place] [address] Critical Systems Technician: Mike Forde MD Monocytes (Bld) [#/Vol] 0.88 10*3/uL Normal 0.00-1.00 [facility] Comment on above: Performed By: #### C DP, BMP #### [facility] [address] [place] [id number] Critical Systems Technician: Mike Forde MD Monocytes/100 WBC (Bld) 8 % Normal 4-8 [facility] Comment on above: Performed By: #### C DP, BMP #### [facility] [address] [place], [place] [id number] ([phone] Critical Systems Technician: Mike Forde MD Neutrophil (Seg) 70 % Normal 47-75 [facility] Comment on above: Performed By: #### C DP, BMP #### [facility] [address] [place], [place] [id number] (330) Critical Systems Technician: Mike Forde MD Platelet mean volume (Bld) [Entitic vol] 10.5 fL Normal 6.0-12.0 [facility] Comment on above: Performed By: #### C DP, BMP #### [facility] [address] [place] [address] Critical Systems Technician: Mike Forde MD Platelets (Bld) [#/Vol] 279 10*3/uL Normal 140-450 [facility] Comment on above: Performed By: #### C DP, BMP #### [facility] [address] [place] [id number] (695) Critical Systems Technician: Mike Forde MD RBC (Bld) [#/Vol] 5.37 10*6/uL High 4.00-5.20 [facility] Comment on above: Performed By: #### C DP, BMP #### [facility] [address] [place] [id number] (314) Critical Systems Technician: Mike Forde MD WBC (Bld) [#/Vol] 10.8 10*3/uL Normal 3.5-11.0 [facility] Comment on above: Performed By: #### C DP, BMP #### [facility] [address] [place] [address] (206) Critical Systems Technician: Mike Forde MD CBC with Auto Differentialon 12-13-2021 Absolute Eos # 0.00 [facility] Absolute Lymph # 1.90 [facility] Absolute Pickett # 0.50 [facility] Basophils (Bld) [#/Vol] 0.00 10*3/uL [facility] Basophils/100 WBC (Bld) 0 % 0 - 2 % [facility] Differential Type YES [facility] Eosinophils/100 WBC (Bld) 0 % 0 - 5 % [facility] Hematocrit (Bld) [Volume fraction] 43.5 % 36 - 46 % [facility] Hemoglobin (Bld) [Mass/Vol] 14.6 g/dL 12.0 - 16.0 g/dL [facility] Lymphocytes/100 WBC (Bld) 21 % 15 - 40 % [facility] MCH (RBC) [Entitic mass] 28.9 pg 26 - 34 pg [facility] MCHC (RBC) [Mass/Vol] 33.5 g/dL 31 - 37 g/dL [facility] MCV (RBC) [Entitic vol] 86.2 fL 80 - 100 fL [facility] Monocytes/100 WBC (Bld) 5 % 4 - 8 % [facility] Platelet distribution width (Bld) [Ratio] 12.3 % 12.1 - 15.2 % [facility] Platelets (Bld) [#/Vol] 265 10*3/uL [facility] RBC (Bld) [#/Vol] 5.05 10*6/uL 4.0 - 5.2 m/uL [facility] Segmented neutrophils/100 WBC (Bld) 74 % 47 - 75 % [facility] Segs Absolute 6.60 [facility] WBC (Bld) [#/Vol] 9.1 10*3/uL [facility] Comprehensive Metabolic Pane davi 12-13-2021 Albumin [Mass/Vol] 4.3 g/dL 3.5 - 5.2 g/dL [facility] ALP (Bld) [Catalytic activity/Vol] 77 U/L 35 - 104 U/L [facility] ALT [Catalytic activity/Vol] 23 U/L 5 - 33 U/L [facility] Anion gap [Moles/Vol] 11 mmol/L 9 - 17 mmol/L [facility] AST [Catalytic activity/Vol] 15 U/L <32 [facility] Bilirubin [Mass/Vol] 0.51 mg/dL 0.30 - 1.20 mg/dL [facility] Calcium [Mass/Vol] 9.6 mg/dL 8.6 - 10.4 mg/dL [facility] Chloride [Moles/Vol] 102 mmol/L 98 - 107 mmol/L [facility] CO2 [Moles/Vol] 25 mmol/L 20 - 31 mmol/L [facility] Creatinine [Mass/Vol] 0.77 mg/dL 0.50 - 0.90 mg/dL [facility] Free PSA/Total PSA [Mass fraction] 7.4 g/dL 6.4 - 8.3 g/dL [facility] GFR >60 >60 mL/min [facility] GFR Non- >60 >60 mL/min [facility] GFR/1.73 sq M.predicted MDRD (S/P/Bld) [Vol rate/Area] [facility] Comment on above: Average GFR for 20-2 9 years old: 116 mL/min/1.73sq m Chronic Kidney Disease: <60 mL/min/1.73sq m Kidney failure: <15 mL/min/1.73sq m eGFR calculated using average adult body mass. Additional eGFR calculator available at: http://www.Wickr.seedtag/multiple_crcl_2012.htm Glucose [Mass/Vol] 93 mg/dL 70 - 99 mg/dL [facility] Potassium [Moles/Vol] 4.2 mmol/L 3.7 - 5.3 mmol /L [facility] Sodium [Moles/Vol] 138 mmol/L 135 - 144 mmol/L [facility] Urea nitrogen (BldV) [Mass/Vol] 9 mg/dL 6 - 20 mg/dL [facility] Urea nitrogen/Creatinine (Bld) [Mass ratio] [...] Emergency department patient visit ASHLEYEZIO Lozano MARYANN [facility] Start: 04-16-2023 End: 04-17-2023 Emergency department patient visit ARPIT PAREKH [facility] Start: 12-13-2021 End: 12-13-2021 [...] vaccine (3 - Td or Tdap) [facility] Start: 12-13-2022 Depression Screen Depression Screen [facility] Start: 03-14-2022 COVID-19 Vaccine (3 - Booster for Pfizer series) COVID-19 Vaccine (3 - Booster for Pfizer series) [facility] Start: 03-10-2022 Influenza vaccination Flu vaccine (S angelo Ended) [facility] Start: 01-11-2022 End: 01-11-2022 Patient encounter procedure 01/11/2022 Office Visit Family Medicine 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 APRN - CNP [address] [place] [phone] [facility] Start: 2019 Screening for malign ant neoplasm of cervix Pap smear [facility] Start: 03-10-2019 Influenza vaccination Flu vaccine (# 1) [place], [place] Start: 2017 DTaP/Tdap/Td vaccine (1 - Tdap) DTaP/Tdap/Td vaccine (1 - Tdap) [place] Start: 2016 Hepatitis C screening Hepatitis C sc reen [facility] Start: 2014 Chlamydia screen Chlamydia screen [place], [place] Start: 2014 Screening for Chlamy nathalie trachomatis Chlamydia screen [facility] Start: 2013 HIV screen HIV screen [place], [place] Start: 2013 HIV screening HIV screen [facility] Start: 2013 HPV vaccine (1 - Fem dana 3-dose series) HPV vaccine (1 - Female 3-dose series) [place], [place] Start: 2011 Varicella Vaccine (1 of 2 - 13+ 2-dose series) Varicella Vaccine (1 of 2 - 13+ 2-dose series) [place], [place] Start: 2009 HPV vaccine (1 - 2-d ose series) HPV vaccine (1 - 2-dose series) [facility] Start: 1999 Varicella vaccine (1 of 2 - 2-dose childhood series) Varicella vaccine (1 of 2 - 2-dose childhood series) [facility] End: 12-13-2021 CBC W Auto Differential panel - Blood CBC with Auto Differential Lab Routine Diarrhea, unspecified type Blood in stool, gustavo 1 Occurrences starting 12/13/2021 until 12/13/2021 [facility] Work Phone: Comment on above: 1 Occurrences starti ng 12/13/2021 until 12/13/2021 End: 12-13-2021 Celiac Disease Panel Celiac Disease Panel Lab Routine Diarrhea, unspecified type Abdominal cramping 1 Occurrences starting 12/13/2021 until 12/13/2021 [facility] Work Phone: Comment on above: 1 Occurrences starti ng 12/13/2021 until 12/13/2021 End: 12-13-2021 Celiac Plus [employer] Work Phone: Comment on above: Once for 1 Occurrenc es starting 12/13/2021 until 12/13/2021 End: 12-13-2021 Comprehensive metabolic 2000 panel - Serum or Plasma Comprehensive Metabolic Panel Lab Routine Blood in stool, gustavo Gastroesophageal reflux disease without esophagitis 1 Occurrences starting 12/13/2021 until 12/13/2021 [facility] [employer]over Phone: Comment on above: 1 Occurrences starti ng 12/13/2021 until 12/13/2021 End: 03-01-2019 Varicella Zoster Antibody, IgG Varicella Zoster Antibody, IgG Lab Routine Need for varicella vaccine 1 Occurrences starting 03/01/2019 until 03/01/2019 [place], [place] Comment on above: 1 Occurrences starti ng 03/01/2019 until 03/01/2019 Varicella Zoster Antibody, IgG Varicella Zoster Antibody, IgG Lab Routine Need for varicella vaccine 03/01/2019 11:50 AM EDT [place], [place] Immunizations Immunization Date Immunization Notes Care Provider Rohit mcnally 09-18-2021 COVID-19, Pfizer Pur ple top, DILUTE for use, 12+ yrs, 30mcg/0.3mL dose 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 FINANCE ADVISOR - CARPET TECHNICIAN Work Phone: [facility] Work Phone: 11-27-2019 Hepatitis B vaccine (recombinant), CpG adjuvanted 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 FINANCE ADVISOR - CARPET TECHNICIAN Work Phone: [facility] Work Phone: 11-27-2019 tetanus toxoid, redu gordon diphtheria toxoid, and acellular pertussis vaccine, adsorbed 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 FINANCE ADVISOR - CARPET TECHNICIAN Work Phone: [facility] Work Phone: 03-27-2019 hepatitis B vaccine, adult dosage 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 FINANCE ADVISOR - CARPET TECHNICIAN Work Phone: [facility] Work Phone: 03-27-2019 measles, mumps and rubella virus vaccine 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 APRN - [facility] Work Phone: [facility] Work Phone: 03-03-2019 measles, mumps and rubella virus vaccine 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 FINANCE ADVISOR - [facility] Work Phone: [facility] [facility] Work Phone: 02-25-2019 hepatitis B vaccine, adult dosage 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 [facility] [employer] [facility] Payers Date Payer Category Payer Unknown [id number] 2022 Private Health Insurance [id number] 2018 Unknown BCBS [place] P PO xxxxxxxxxxxx 2018-Present [address] [place] [address] xxxxxxxxxxxx [id number] 2018 Unknown [id number] 1998 Unknown [id number] .174 1998 Unknown [id number] .174 1998 Unknown [id number] [id number] .1259 1998 Unknown [id number] [id number] .1259 1998 Unknown [id number] [id number] .1259 1998 Unknown [id number] [id number] .1259 1998 Unknown [id number] [id number] .1259 1998 Unknown [id number] .1259 Social History Date Type Detail Facility Start: 04-25-2016 End: 11-26-2018 Tobacco smoking status NHIS Never smoker [place], [place] Start: 11-26-2018 Alcohol intake No Rachel [place] Start: 2000 Sex Assigned At Not on file M [place], [place] Start: 04-25-2016 Tobacco use and exposure Smokeless tobacco non-user [employer] [employer] Phone: Start: 12-13-2021 Alcohol intake Current non-dr cut file clerk of alcohol (finding) [facility] Phone: Start: 12-13-2021 History SDOH Financial 5 [facility] Phone: Start: 12-13-2021 History 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 1 [facility]: Evaluation note Note Date & Type Note Facility Evaluation note Diagnosis Blood in stool, gustavo Blood in stool Gastroesophageal reflux disease without esophagitis Esophageal reflux Diarrhea, unspecified type Abdominal cramping Abdominal pain, unspecified site documented in this encounter [facility]: Assessments Diagnosis Need for varicella vaccine Need for prophylactic vaccination and inoculation against varicella Advance Directives No Advanced Directives Records FoundDocuments on File Type Date Recorded Patient Web Operations Manager Expl anation Advance Directives and Living Will Power of Engineering Technician Parking Documents on File Type Date Recorded Patient Web Operations Manager Expl anation ACP-Advance Directive ACP-Power of Engineering Technician Parking Summary Purpose Family History No Family History Records FoundNo Family History Records Found Additional Source Comments Care Teams (unrecognized sec tion and content) Regional Sales Trainer Relationship Specialty Start Date End Date 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, DO - CARPET TECHNICIAN [address] [place] [address] PCP - General Nurse Practitioner 11/23/16 INFORMATION SOURCE (unrecogn ized section and content) DATE CREATED AUTHOR 06/02/2023 Rachel allen DATE CREATED AUTHOR AUTHORSera GAGNON 10/09/[address] [facility] FOR RECORDS PERTAINING TO PATIENTS WHO ARE [...] BE BASED ON THE PRIMARY CLINICAL RECORDS. [employer] provides no warranty or guarantee of the accuracy or completeness of information in this document.
[2023-10-14 08:59] VITALS: BP 130/68; PULSE 95
--- NOTE | 2023-10-14 10:25 | US_ITS ---
[address] [address] Patient Name: DANIEL ARMENDARIZ MRN: [id number] date: 2000 Sex: F Assigned Patient Location: [facility] Current Patient Location: [facility] [place] Accession/Order Number: [id number] Exam Date: 10/14/2023 10:20 Report Date: 10/14/2023 11:44 At the request of: NAHED SALINAS Procedure: US OB BPP w non-stress EXAMINATION: US OB BPP w non-stress HISTORY: hypothyroid COMPARISON: Ultrasound OB biophysical 10/07/2023, ultrasound OB growth 10/09/2023 TECHNIQUE: Ultrasound biophysical profile was performed in the radiology department. BREATHING MOVEMENTS: 2.0 GROSS BODY MOVEMENTS: 2.0 TONE: 2.0 QUALITATIVE AMNIOTIC FLUID VOLUME: 2.0 PRESENTATION: CEPHALIC HEART RATE: 133.0 bpm bpm. AMNIOTIC FLUID VOLUME: 14.4 cm GESTATIONAL AGE: 34 weeks 0 days CONCLUSION: Total biophysical profile score 8.0. Electronically authenticated by: RAMA BOWMAN Date: 10/14/2023 11:44
== END 2023-10-14 11:00 | disposition home or self-care (01) ==
LOC: US 04:31 → FBC 08:56
PROVIDERS: Visit Provider Obstetrics & Gynecology
DX: O99.280 Endocrine, nutritional and metabolic diseases complicating pregnancy, unspecified trimester (principal); E03.9 Hypothyroidism, unspecified; Z3A.34 34 weeks gestation of pregnancy
CPT/HCPCS: 76818

== ENCOUNTER 2023-10-18 04:26 | Outpatient (OUT) | payer BC, OTHER, SELFPAY ==
--- OUTSIDE RECORDS SUMMARY | 2023-10-18 04:28 | XMS_ITS | CCD ---
Author Organization [facility] Care Team Providers Care Backup Engineer Name Role Phone 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 Primary Care Provider TERRENCE WOLF Attending Unavailable ARPIT PAREKH Primary Care Unavailable ARPIT PAREKH Primary Care Unavailable WILLIAM WHITAKER Attending Unavailable ALICIA CLANCY Attending Unavailable NAHED SALINAS Attending Unavailable ALICIA CLANCY Attending Unavailable NAHED SALINAS Attending Unavailable ALICIA CLANCY Attending Unavailable NAHED ASLINAS Attending Unavailable Medications Current Medications Medication Drug [...] 05-30-2023 Abs. Basophil 0.01 k/uL Normal 0.00-0.20 [facility] Comment on above: Performed By: #### C DP, CP #### [facility] [address] [place] [address] Powder Compounder: Mike Forde MD Abs.Imm.Granulocyte 0.01 k/uL Normal 0.00-0.30 [facility] Comment on above: Performed By: #### C DP, CP #### [facility] [address] [place] [address] Powder Compounder: Mike Forde MD Abs.Neutrophil (Seg) 6.24 k/uL Normal 2.5-7.0 [facility] Comment on above: Performed By: #### C DP, CP #### [facility] [address] [place] [address] Powder Compounder: Mike Forde MD Basophils/100 WBC (Bld) 0 % Normal 0-2 [facility] Comment on above: Performed By: #### C DP, CP #### [facility] [address] [place] [address] Powder Compounder: Mike Forde MD Eosinophils (Bld) [#/Vol] 0.00 10*3/uL Normal 0.00-0.40 [facility] Comment on above: Performed By: #### C DP, CP #### [facility] [address] [place] [address] Powder Compounder: Mike Forde MD Eosinophils/100 WBC (Bld) 0 % Normal 0-5 [facility] Comment on above: Performed By: #### C DP, CP #### [facility] [address] [place] [address] Powder Compounder: Mike Forde MD Erythrocyte distribution width (RBC) [Ratio] 11.9 % Low 12.1-15.2 [facility] Comment on above: Performed By: #### C DP, CP #### [facility] [address] [place] [address] Powder Compounder: Mike Forde MD Hematocrit (Bld) [Volume fraction] 41.1 % Normal 36.0-46.0 [facility] Comment on above: Performed By: #### C DP, CP #### [facility] [address] [place] [phone] Powder Compounder: Mike Forde MD Hemoglobin (Bld) [Mass/Vol] 14.5 g/dL Normal 12.0-16.0 [facility] Comment on above: Performed By: #### C DP, CP #### [facility] [address] [place] [address] Powder Compounder: Mike Forde MD Immature granulocytes/100 WBC (Bld) 0 % Normal 0-5 [facility] Comment on above: Performed By: #### C DP, CP #### [facility] [address] [place] [phone] Powder Compounder: Mike Forde MD Lymphocytes (Bld) [#/Vol] 1.74 10*3/uL Normal 1.00-4.80 [facility] Comment on above: Performed By: #### C DP, CP #### [facility] [address] [place] [address] Powder Compounder: Mike Forde MD Lymphocytes/100 WBC (Bld) 21 % Normal 15-40 [facility] Comment on above: Performed By: #### C DP, CP #### [facility] [address] [place] [address] Powder Compounder: Mike Forde MD MCH (RBC) [Entitic mass] 29.2 pg Normal 26.0-34.0 [facility] Comment on above: Performed By: #### C DP, CP #### [facility] [address] [place] [address] Powder Compounder: Mike Forde MD MCHC (RBC) [Mass/Vol] 35.3 g/dL Normal 31.0-37.0 [facility] Comment on above: Performed By: #### C DP, CP #### [facility] [address] [place] [address] Powder Compounder: Mike Forde MD MCV (RBC) [Entitic vol] 82.9 fL Normal 80.0-100.0 [facility] Comment on above: Performed By: #### C DP, CP #### [facility] [address] [place] [phone] Powder Compounder: Mike Forde MD Monocytes (Bld) [#/Vol] 0.50 10*3/uL Normal 0.00-1.00 [facility] Comment on above: Performed By: #### C DP, CP #### [facility] [address] [place] [address] Powder Compounder: Mike Forde MD Monocytes/100 WBC (Bld) 6 % Normal 4-8 [facility] Comment on above: Performed By: #### C DP, CP #### [facility] [address] [place] [address] Powder Compounder: Mike Forde MD Neutrophil (Seg) 73 % Normal 47-[address] [facility] Comment on above: Performed By: #### C DP, CP #### [facility] [address] [place] [address] Powder Compounder: Mike Forde MD Platelet mean volume (Bld) [Entitic vol] 10.4 fL Normal 6.0-12.0 [facility] Comment on above: Performed By: #### C DP, CP #### [facility] [address] [place] [address] ([phone] Powder Compounder: Mike Forde MD Platelets (Bld) [#/Vol] 227 10*3/uL Normal 140-450 [facility] Comment on above: Performed By: #### C DP, CP #### [facility] [address] [place], [place] [phone] Powder Compounder: Mike Forde MD RBC (Bld) [#/Vol] 4.96 10*6/uL Normal 4.00-5.20 [facility] Comment on above: Performed By: #### C DP, CP #### [facility] [address] [place] [address] Powder Compounder: Miek Forde MD WBC (Bld) [#/Vol] 8.5 10*3/uL Normal 3.5-11.0 [facility] Comment on above: Performed By: #### C DP, CP #### [facility] [address] [place] [address] Powder Compounder: Mike Forde MD Comp Metabolic Profon 2022 Albumin [Mass/Vol] 4.2 g/dL Normal 3.5-5.2 [facility] Comment on above: Performed By: #### C DP, CP #### [facility] [address] [place] [address] Powder Compounder: Mike Forde MD Alkaline Phos 48 U/L Normal 35-104 [facility] Comment on above: Performed By: #### C DP, CP #### [facility] [address] [place] [address] Powder Compounder: Mike Forde MD ALT [Catalytic activity/Vol] 12 U/L Normal 5-33 [facility] Comment on above: Performed By: #### C DP, CP #### [facility] [address] [place] [address] Powder Compounder: Mike Forde MD Anion gap [Moles/Vol] 15 mmol/L Normal 9-17 [facility] Comment on above: Performed By: #### C DP, CP #### [facility] [address] [place] [address] Powder Compounder: Mike Forde MD AST [Catalytic activity/Vol] 11 U/L Normal <32 [facility] Comment on above: Performed By: #### C DP, CP #### [facility] [address] [place] [address] Powder Compounder: Mike Forde MD Bilirubin [Mass/Vol] mg/dL Low 0.3-1.2 [facility] Comment on above: Performed By: #### C DP, CP #### [facility] [address] [place] [address] Powder Compounder: Mike Forde MD BUN/CRE Ratio 14 Normal 9-20 [facility] Comment on above: Performed By: #### C DP, CP #### [facility] [address] [place] [address] Powder Compounder: Mike Forde MD Calcium [Mass/Vol] 9.7 mg/dL Normal 8.6-10.4 [facility] Comment on above: Performed By: #### C DP, CP #### [facility] [address] [place] [address] Powder Compounder: Mike Forde MD Chloride [Moles/Vol] 101 mmol/L Normal 98-107 [facility] Comment on above: Performed By: #### C DP, CP #### [facility] [address] [place], [place] [phone] Powder Compounder: Mike Forde MD CO2 [Moles/Vol] 22 mmol/L Normal 20-31 [facility] Comment on above: Performed By: #### C DP, CP #### [facility] [address] [place], [place] [phone] Powder Compounder: Mike Forde MD Creatinine [Mass/Vol] 0.5 mg/dL Normal 0.5-0.9 [facility] Comment on above: Performed By: #### C DP, CP #### [facility] [address] [place], [place] [phone] Powder Compounder: Mike Forde MD GFR/1.73 sq M.predicted among non-blacks MDRD (S/P/Bld) [Vol rate/Area] mL/min/{1.73_m2} Normal >60 [facility] Comment on above: Result Comment: [...] #### C DP, CP #### [facility] [address] [place] [address] Powder Compounder: Mike Forde MD Glucose [Mass/Vol] 90 mg/dL Normal 70-99 [facility] Comment on above: Performed By: #### C DP, CP #### [facility] [address] [place], [place] [phone] Powder Compounder: Mike Forde MD Potassium [Moles/Vol] 3.5 mmol/L Low 3.7-5.3 [facility] Comment on above: Performed By: #### C DP, CP #### [facility] [address] [place], [place] [phone] Powder Compounder: Mike Forde MD Protein [Mass/Vol] 7.5 g/dL Normal 6.4-8.3 [facility] Comment on above: Performed By: #### C DP, CP #### [facility] [address] [place], [place] [phone] Powder Compounder: Mike Forde MD Sodium [Moles/Vol] 138 mmol/L Normal 135-144 [facility] Comment on above: Performed By: #### C DP, CP #### [facility] [address] [place], [place] [phone] Powder Compounder: Mike Forde MD Urea nitrogen [Mass/Vol] 7 mg/dL Normal 6-20 [facility] Comment on above: Performed By: #### C DP, CP #### [facility] [address] [place], [place] [phone] Powder Compounder: Mike Forde MD Basic Metabolic Profon 04-16 Anion gap [Moles/Vol] 15 mmol/L Normal 9-17 [facility] Comment on above: Performed By: #### C DP, BMP #### [facility] [address] [place], [place] [phone] Powder Compounder: Mike Forde MD BUN/CRE Ratio 10 Normal 9-20 [facility] Comment on above: Performed By: #### C DP, BMP #### [facility] [address] [place], [place] [phone] Powder Compounder: Mike Forde MD Calcium [Mass/Vol] 10.2 mg/dL Normal 8.6-10.4 [facility] Comment on above: Performed By: #### C DP, BMP #### [facility] [address] [place], [place] [phone] Powder Compounder: Mike Forde MD Chloride [Moles/Vol] 98 mmol/L Normal 98-107 [facility] Comment on above: Performed By: #### C DP, BMP #### [facility] [address] [place] [address] Powder Compounder: Mike Forde MD CO2 [Moles/Vol] 22 mmol/L Normal 20-31 [facility] Comment on above: Performed By: #### C DP, BMP #### [facility] [address] [place] [address] Powder Compounder: Mike Forde MD Creatinine [Mass/Vol] 0.7 mg/dL Normal 0.5-0.9 [facility] Comment on above: Performed By: #### C DP, BMP #### [facility] [address] [place] [address] Powder Compounder: Mike Forde MD GFR/1.73 sq M.predicted among non-blacks MDRD (S/P/Bld) [Vol rate/Area] mL/min/{1.73_m2} Normal >60 [facility] Comment on above: Result Comment: [...] #### C DP, BMP #### [facility] [address] [place] [address] Powder Compounder: Mike Forde MD Glucose [Mass/Vol] 113 mg/dL High 70-99 [facility] Comment on above: Performed By: #### C DP, BMP #### [facility] [address] [place] [address] Powder Compounder: Mike Forde MD Potassium [Moles/Vol] 3.4 mmol/L Low 3.7-5.3 [facility] Comment on above: Performed By: #### C DP, BMP #### [facility] [address] [place], [place] [phone] Powder Compounder: Mike Forde MD Sodium [Moles/Vol] 135 mmol/L Normal 135-144 [facility] Comment on above: Performed By: #### C DP, BMP #### [facility] [address] [place], [place] [phone] Powder Compounder: Mike Forde MD Urea nitrogen [Mass/Vol] 7 mg/dL Normal 6-20 [facility] Comment on above: Performed By: #### C DP, BMP #### [facility] [address] [place] [address] Powder Compounder: Mike Forde MD CBC with Diffon 04-16-2023 Abs. Basophil 0.03 k/uL Normal 0.00-0.20 [facility] Comment on above: Performed By: #### C DP, BMP #### [facility] [address] [place] [phone] Powder Compounder: Mike Forde MD Abs.Imm.Granulocyte 0.02 k/uL Normal 0.00-0.30 [facility] Comment on above: Performed By: #### C DP, BMP #### [facility] [address] [place], [place] [phone] Powder Compounder: Mike Forde MD Abs.Neutrophil (Seg) 7.51 k/uL High 2.5-7.0 [facility] Comment on above: Performed By: #### C DP, BMP #### [facility] [address] [place], [place] [phone] Powder Compounder: Mike Forde MD Basophils/100 WBC (Bld) 0 % Normal 0-2 [facility] Comment on above: Performed By: #### C DP, BMP #### [facility] [address] [place], [place] [phone] Powder Compounder: Mike Forde MD Eosinophils (Bld) [#/Vol] 0.03 10*3/uL Normal 0.00-0.40 [facility] Comment on above: Performed By: #### C DP, BMP #### [facility] [address] [place], [place] [phone] Powder Compounder: Mike Forde MD Eosinophils/100 WBC (Bld) 0 % Normal 0-5 [facility] Comment on above: Performed By: #### C DP, BMP #### [facility] [address] [place] [phone] Powder Compounder: Mike Forde MD Erythrocyte distribution width (RBC) [Ratio] 11.8 % Low 12.1-15.2 [facility] Comment on above: Performed By: #### C DP, BMP #### [facility] [address] [place] [phone] Powder Compounder: Mike Forde MD Hematocrit (Bld) [Volume fraction] 43.4 % Normal 36.0-46.0 [facility] Comment on above: Performed By: #### C DP, BMP #### [facility] [address] [place] [phone] Powder Compounder: Mike Forde MD Hemoglobin (Bld) [Mass/Vol] 15.5 g/dL Normal 12.0-16.0 [facility] Comment on above: Performed By: #### C DP, BMP #### [facility] [address] [place], [place] [phone] Powder Compounder: Mike Forde MD Immature granulocytes/100 WBC (Bld) 0 % Normal 0-5 [facility] Comment on above: Performed By: #### C DP, BMP #### [facility] [address] [place], [place] [phone] Powder Compounder: Mike Forde MD Lymphocytes (Bld) [#/Vol] 2.33 10*3/uL Normal 1.00-4.80 [facility] Comment on above: Performed By: #### C DP, BMP #### [facility] [address] [place] [phone] Powder Compounder: Mike Forde MD Lymphocytes/100 WBC (Bld) 22 % Normal 15-40 [facility] Comment on above: Performed By: #### C DP, BMP #### [facility] [address] [place] [phone] Powder Compounder: Mike Forde MD MCH (RBC) [Entitic mass] 28.9 pg Normal 26.0-34.0 [facility] Comment on above: Performed By: #### C DP, BMP #### [facility] [address] [place] [address] Powder Compounder: Mike Forde MD MCHC (RBC) [Mass/Vol] 35.7 g/dL Normal 31.0-37.0 [facility] Comment on above: Performed By: #### C DP, BMP #### [facility] [address] [place] [phone] Powder Compounder: Mike Forde MD MCV (RBC) [Entitic vol] 80.8 fL Normal 80.0-100.0 [facility] Comment on above: Performed By: #### C DP, BMP #### [facility] [address] [place] [address] Powder Compounder: Mike Forde MD Monocytes (Bld) [#/Vol] 0.88 10*3/uL Normal 0.00-1.00 [facility] Comment on above: Performed By: #### C DP, BMP #### [facility] [address] [place] [phone] Powder Compounder: Mike Forde MD Monocytes/100 WBC (Bld) 8 % Normal 4-8 [facility] Comment on above: Performed By: #### C DP, BMP #### [facility] [address] [place], [place] [phone] ([phone] Powder Compounder: Mike Forde MD Neutrophil (Seg) 70 % Normal 47-[address] [facility] Comment on above: Performed By: #### C DP, BMP #### [facility] [address] [place], [place] [phone] Powder Compounder: Mike Forde MD Platelet mean volume (Bld) [Entitic vol] 10.5 fL Normal 6.0-12.0 [facility] Comment on above: Performed By: #### C DP, BMP #### [facility] [address] [place] [address] Powder Compounder: Mike Forde MD Platelets (Bld) [#/Vol] 279 10*3/uL Normal 140-450 [facility] Comment on above: Performed By: #### C DP, BMP #### [facility] [address] [place] [phone] Powder Compounder: Mike Forde MD RBC (Bld) [#/Vol] 5.37 10*6/uL High 4.00-5.20 [facility] Comment on above: Performed By: #### C DP, BMP #### [facility] [address] [place] [phone] Powder Compounder: Mike Forde MD WBC (Bld) [#/Vol] 10.8 10*3/uL Normal 3.5-11.0 [facility] Comment on above: Performed By: #### C DP, BMP #### [facility] [address] [place] [address] [phone] Powder Compounder: Mike Forde MD CBC with Auto Differentialon 12-13-2021 Absolute Eos # 0.[address] [facility] Absolute Lymph # 1.[address] [facility] Absolute Spencer # 0.[address] [facility] Basophils (Bld) [#/Vol] 0.00 10*3/uL [facility] Basophils/100 WBC (Bld) 0 % 0 - 2 % [facility] Differential Type YES [facility] Eosinophils/100 WBC (Bld) 0 % 0 - 5 % [facility] Hematocrit (Bld) [Volume fraction] 43.5 % 36 - 46 % [facility] Hemoglobin (Bld) [Mass/Vol] 14.6 g/dL 12.0 - 16.0 g/dL [facility] Lymphocytes/100 WBC (Bld) 21 % 15 - 40 % [facility] MCH (RBC) [Entitic mass] 28.9 pg 26 - 34 pg [facility] MCHC (RBC) [Mass/Vol] 33.5 g/dL 31 - 37 g/dL [facility] MCV (RBC) [Entitic vol] 86.2 fL 80 - 100 fL [facility] Monocytes/100 WBC (Bld) 5 % 4 - 8 % [facility] Platelet distribution width (Bld) [Ratio] 12.3 % 12.1 - 15.2 % [facility] Platelets (Bld) [#/Vol] 265 10*3/uL [facility] RBC (Bld) [#/Vol] 5.05 10*6/uL 4.0 - 5.2 m/uL [facility] Segmented neutrophils/100 WBC (Bld) 74 % 47 - 75 % [facility] Segs Absolute 6.60 [facility] WBC (Bld) [#/Vol] 9.1 10*3/uL [facility] Comprehensive Metabolic Pane davi 12-13-2021 Albumin [Mass/Vol] 4.3 g/dL 3.5 - 5.2 g/dL [facility] ALP (Bld) [Catalytic activity/Vol] 77 U/L 35 - 104 U/L [facility] ALT [Catalytic activity/Vol] 23 U/L 5 - 33 U/L [facility] Anion gap [Moles/Vol] 11 mmol/L 9 - 17 mmol/L [facility] AST [Catalytic activity/Vol] 15 U/L <32 [facility] Bilirubin [Mass/Vol] 0.51 mg/dL 0.30 - 1.20 mg/dL [facility] Calcium [Mass/Vol] 9.6 mg/dL 8.6 - 10.4 mg/dL [facility] Chloride [Moles/Vol] 102 mmol/L 98 - 107 mmol/L [facility] CO2 [Moles/Vol] 25 mmol/L 20 - 31 mmol/L [facility] Creatinine [Mass/Vol] 0.77 mg/dL 0.50 - 0.90 mg/dL [facility] Free PSA/Total PSA [Mass fraction] 7.4 g/dL 6.4 - 8.3 g/dL [facility] GFR >60 >60 mL/min [facility] GFR Non- >60 >60 mL/min [facility] GFR/1.73 sq M.predicted MDRD (S/P/Bld) [Vol rate/Area] [facility] Comment on above: Average GFR for 20-2 9 years old: 116 mL/min/1.73sq m Chronic Kidney Disease: <60 mL/min/1.73sq m Kidney failure: <15 mL/min/1.73sq m eGFR calculated using average adult body mass. Additional eGFR calculator available at: http://www.[employer] Notion/multiple_crcl_2012.htm Glucose [Mass/Vol] 93 mg/dL 70 - 99 mg/dL [facility] Potassium [Moles/Vol] 4.2 mmol/L 3.7 - 5.3 mmol /L [facility] Sodium [Moles/Vol] 138 mmol/L 135 - 144 mmol/L [facility] Urea nitrogen (BldV) [Mass/Vol] 9 mg/dL 6 - 20 mg/dL [facility] Urea nitrogen/Creatinine (Bld) [Mass ratio] 12 [...] Emergency department patient visit ASHLEYEZIO Lozano MARYANN [facility] Start: 04-16-2023 End: 04-17-2023 Emergency department patient visit ARPIT PAREKH [facility] Start: 12-13-2021 End: 12-13-2021 Subsequent [...] vaccine (3 - Td or Tdap) [facility] Start: 12-13-2022 Depression Screen Depression Screen [facility] Start: 03-14-2022 COVID-19 Vaccine (3 - Booster for Pfizer series) COVID-19 Vaccine (3 - Booster for Pfizer series) [facility] Start: 03-10-2022 Influenza vaccination Flu vaccine (S angelo Ended) [facility] Start: 01-11-2022 End: 01-11-2022 Patient encounter procedure 01/11/2022 Office Visit Family Medicine 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 APRN - CNP [address] [place] [phone] [facility] Start: 2019 Screening for malign ant neoplasm of cervix Pap smear [facility] Start: 03-10-2019 Influenza vaccination Flu vaccine (# 1) [place], [place] Start: 2017 DTaP/Tdap/Td vaccine (1 - Tdap) DTaP/Tdap/Td vaccine (1 - Tdap) [place], [place] Start: 2016 Hepatitis C screening Hepatitis C sc reen [facility] Start: 2014 Chlamydia screen Chlamydia screen [place], [place] Start: 2014 Screening for Chlamy nathalie trachomatis Chlamydia screen [facility] Start: 2013 HIV screen HIV screen [place], [place] Start: 2013 HIV screening HIV screen [facility] Start: 2013 HPV vaccine (1 - Fem dana 3-dose series) HPV vaccine (1 - Female 3-dose series) [place], [place] Start: 2011 Varicella Vaccine (1 of 2 - 13+ 2-dose series) Varicella Vaccine (1 of 2 - 13+ 2-dose series) [place], [place] Start: 2009 HPV vaccine (1 - 2-d ose series) HPV vaccine (1 - 2-dose series) [facility] Start: 1999 Varicella vaccine (1 of 2 - 2-dose childhood series) Varicella vaccine (1 of 2 - 2-dose childhood series) [facility] End: 12-13-2021 CBC W Auto Differential panel - Blood CBC with Auto Differential Lab Routine Diarrhea, unspecified type Blood in stool, gustavo 1 Occurrences starting 12/13/2021 until 12/13/2021 [facility] Work Phone: Comment on above: 1 Occurrences starti ng 12/13/2021 until 12/13/2021 End: 12-13-2021 Celiac Disease Panel Celiac Disease Panel Lab Routine Diarrhea, unspecified type Abdominal cramping 1 Occurrences starting 12/13/2021 until 12/13/2021 [facility] Work Phone: Comment on above: 1 Occurrences starti ng 12/13/2021 until 12/13/2021 End: 12-13-2021 [facility] Work Phone: Comment on above: Once for 1 Occurrenc es starting 12/13/2021 until 12/13/2021 End: 12-13-2021 Comprehensive metabolic 2000 panel - Serum or Plasma Comprehensive Metabolic Panel Lab Routine Blood in stool, gustavo Gastroesophageal reflux disease without esophagitis 1 Occurrences starting 12/13/2021 until 12/13/2021 [facility] [employer] Phone: Comment on above: 1 Occurrences starti ng 12/13/2021 until 12/13/2021 End: 03-01-2019 Varicella Zoster Antibody, IgG Varicella Zoster Antibody, IgG Lab Routine Need for varicella vaccine 1 Occurrences starting 03/01/2019 until 03/01/2019 [place], [place] Comment on above: 1 Occurrences starti ng 03/01/2019 until 03/01/2019 Varicella Zoster Antibody, IgG Varicella Zoster Antibody, IgG Lab Routine Need for varicella vaccine 03/01/2019 11:50 AM EDT [place], [place] Immunizations Immunization Date Immunization Notes Care Provider Rohit mcnally 09-18-2021 COVID-19, Pfizer Pur ple top, DILUTE for use, 12+ yrs, 30mcg/0.3mL dose 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 [employer] SUPPORT CONTROL OFFICER - PODIATRY PROFESSOR Work Phone: [facility] [employer] Work Phone: 11-27-2019 Hepatitis B vaccine (recombinant), CpG adjuvanted 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 [employer] SUPPORT CONTROL OFFICER - PODIATRY PROFESSOR Work Phone: [facility] [employer] Work Phone: 11-27-2019 tetanus toxoid, redu gordon diphtheria toxoid, and acellular pertussis vaccine, adsorbed 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 AIR SUPPORT CONTROL OFFICER - PODIATRY PROFESSOR Work Phone: [facility] [employer] Work Phone: 03-27-2019 hepatitis B vaccine, adult dosage 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 AIR SUPPORT CONTROL OFFICER - PODIATRY PROFESSOR Work Phone: [facility] [employer] Work Phone: 03-27-2019 measles, mumps and rubella virus vaccine 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 APRN - [facility] Work Phone: [facility] [employer] Work Phone: 03-03-2019 measles, mumps and rubella virus vaccine 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 AIR SUPPORT CONTROL OFFICER - [facility] Work Phone: [facility] [employer] Work Phone: 02-25-2019 hepatitis B vaccine, adult dosage 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 [facility] [employer] [facility] Payers Date Payer Category Payer Unknown [id number] 2022 Private Health Insurance [id number] 2018 Unknown BCBS [place] - [place] P PO xxxxxxxxxxxx 2018-Present [address] [place] [address] xxxxxxxxxxxx [id number] 2018 Unknown [id number] 1998 Unknown [id number] 1998 Unknown [id number] 1998 Unknown [id number] .[id number] 1998 Unknown [id number] .[id number] 1998 Unknown [id number] .[id number] 1998 Unknown [id number] .[id number] 1998 Unknown [id number] .[id number] 1998 Unknown [id number] .[id number] Social History Date Type Detail Facility Start: 04-25-2016 End: 11-26-2018 Tobacco smoking status NHIS Never smoker [place], [place] Start: 11-26-2018 Alcohol intake No Rachel [place], [place] Start: 1998 Sex Assigned At Not on file M [place], [place] Start: 04-25-2016 Tobacco use and exposure Smokeless tobacco non-user [email or web address] Phone: Start: 12-13-2021 Alcohol intake Current non-dr roustabout of alcohol (finding) [email or web address] Phone: Start: 12-13-2021 History SDOH Financial 5 [email or web address] Phone: Start: 12-13-2021 History 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 1 [email or web address] Phone: Evaluation note Note Date & Type Note Facility Evaluation note Diagnosis Blood in stool, gustavo Blood in stool Gastroesophageal reflux disease without esophagitis Esophageal reflux Diarrhea, unspecified type Abdominal cramping Abdominal pain, unspecified site documented in this encounter [email or web address] Phone: Assessments Diagnosis Need for varicella vaccine Need for prophylactic vaccination and inoculation against varicella Advance Directives No Advanced Directives Records FoundDocuments on File Type Date Recorded 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 Expl 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 Advance Directives and Living Will Power of Marketing Programs Specialist Documents on File Type Date Recorded 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 Expl anation ACP-Advance Directive ACP-Power of Marketing Programs Specialist Summary Purpose Family History No Family History Records FoundNo Family History Records Found Additional Source Comments Care Teams (unrecognized sec tion and content) Backup Engineer Relationship Specialty Start Date End Date 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, DO - PODIATRY PROFESSOR [address] [place] [address] PCP - General Nurse Practitioner 11/23/16 INFORMATION SOURCE (unrecogn ized section and content) DATE CREATED AUTHOR 06/02/2023 Rachel allen DATE CREATED AUTHOR AUTHORSera GAGNON 10/09/2023 [facility] FOR RECORDS PERTAINING TO PATIENTS [...] BE BASED ON THE PRIMARY CLINICAL RECORDS. [employer] provides no warranty or guarantee of the accuracy or completeness of information in this document.
[2023-10-18 11:04] VITALS: BP 122/76; PULSE 112
== END 2023-10-18 11:30 | disposition home or self-care (01) ==
LOC: FBCO 04:27 → FBC 10:57
PROVIDERS: Visit Provider Obstetrics & Gynecology
DX: O99.283 Endocrine, nutritional and metabolic diseases complicating pregnancy, third trimester (principal); E05.90 Thyrotoxicosis, unspecified without thyrotoxic crisis or storm; Z3A.34 34 weeks gestation of pregnancy
CPT/HCPCS: 59025

== ENCOUNTER 2023-10-21 00:21 | Outpatient (OUT) | payer BC, OTHER, SELFPAY ==
--- OUTSIDE RECORDS SUMMARY | 2023-10-21 00:24 | XMS_ITS | CCD ---
Author Organization [facility] Care Team Providers Care Occupational Therapy Teacher Name Role Phone 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 [facility] [...] 05-30-2023 Abs. Basophil 0.01 k/uL Normal 0.00-0.20 [facility] Comment on above: Performed By: #### C DP, CP #### [facility] [address] [place] [address] Instructional Consultant: Mike Forde MD Abs.Imm.Granulocyte 0.01 k/uL Normal 0.00-0.30 [facility] Comment on above: Performed By: #### C DP, CP #### [facility] [address] [place] [address] Instructional Consultant: Mike Forde MD Abs.Neutrophil (Seg) 6.24 k/uL Normal 2.5-7.0 [facility] Comment on above: Performed By: #### C DP, CP #### [facility] [address] [place] [address] Instructional Consultant: Mike Forde MD Basophils/100 WBC (Bld) 0 % Normal 0-2 [facility] Comment on above: Performed By: #### C DP, CP #### [facility] [address] [place] [address] Instructional Consultant: Mike Forde MD Eosinophils (Bld) [#/Vol] 0.00 10*3/uL Normal 0.00-0.40 [facility] Comment on above: Performed By: #### C DP, CP #### [facility] [address] [place] [address] Instructional Consultant: Mike Forde MD Eosinophils/100 WBC (Bld) 0 % Normal 0-5 [facility] Comment on above: Performed By: #### C DP, CP #### [facility] [address] [place] [address] Instructional Consultant: Mike Forde MD Erythrocyte distribution width (RBC) [Ratio] 11.9 % Low 12.1-15.2 [facility] Comment on above: Performed By: #### C DP, CP #### [facility] [address] [place] [address] Instructional Consultant: Mike Forde MD Hematocrit (Bld) [Volume fraction] 41.1 % Normal 36.0-46.0 [facility] Comment on above: Performed By: #### C DP, CP #### [facility] [address] [place] [phone] Instructional Consultant: Mike Forde MD Hemoglobin (Bld) [Mass/Vol] 14.5 g/dL Normal 12.0-16.0 [facility] Comment on above: Performed By: #### C DP, CP #### [facility] [address] [place] [address] Instructional Consultant: Mike Forde MD Immature granulocytes/100 WBC (Bld) 0 % Normal 0-5 [facility] Comment on above: Performed By: #### C DP, CP #### [facility] [address] [place] [phone] Instructional Consultant: Mike Forde MD Lymphocytes (Bld) [#/Vol] 1.74 10*3/uL Normal 1.00-4.80 [facility] Comment on above: Performed By: #### C DP, CP #### [facility] [address] [place] [address] Instructional Consultant: Mike Forde MD Lymphocytes/100 WBC (Bld) 21 % Normal 15-40 [facility] Comment on above: Performed By: #### C DP, CP #### [facility] [address] [place] [address] Instructional Consultant: Mike Forde MD MCH (RBC) [Entitic mass] 29.2 pg Normal 26.0-34.0 [facility] Comment on above: Performed By: #### C DP, CP #### [facility] [address] [place] [address] Instructional Consultant: Mike Forde MD MCHC (RBC) [Mass/Vol] 35.3 g/dL Normal 31.0-37.0 [facility] Comment on above: Performed By: #### C DP, CP #### [facility] [address] [place] [address] Instructional Consultant: Mike Forde MD MCV (RBC) [Entitic vol] 82.9 fL Normal 80.0-100.0 [facility] Comment on above: Performed By: #### C DP, CP #### [facility] [address] [place] [phone] Instructional Consultant: Mike Forde MD Monocytes (Bld) [#/Vol] 0.50 10*3/uL Normal 0.00-1.00 [facility] Comment on above: Performed By: #### C DP, CP #### [facility] [address] [place] [address] Instructional Consultant: Mike Forde MD Monocytes/100 WBC (Bld) 6 % Normal 4-8 [facility] Comment on above: Performed By: #### C DP, CP #### [facility] [address] [place] [address] Instructional Consultant: Mike Forde MD Neutrophil (Seg) 73 % Normal 47-75 [facility] Comment on above: Performed By: #### C DP, CP #### [facility] [address] [place] [address] Instructional Consultant: Mike Forde MD Platelet mean volume (Bld) [Entitic vol] 10.4 fL Normal 6.0-12.0 [facility] Comment on above: Performed By: #### C DP, CP #### [facility] [address] [place] [phone] Instructional Consultant: Mike Forde MD Platelets (Bld) [#/Vol] 227 10*3/uL Normal 140-450 [facility] Comment on above: Performed By: #### C DP, CP #### [facility] [address] [place], [place] [phone] Instructional Consultant: Mike Forde MD RBC (Bld) [#/Vol] 4.96 10*6/uL Normal 4.00-5.20 [facility] Comment on above: Performed By: #### C DP, CP #### [facility] [address] [place] [address] Instructional Consultant: Mike Forde MD WBC (Bld) [#/Vol] 8.5 10*3/uL Normal 3.5-11.0 [facility] Comment on above: Performed By: #### C DP, CP #### [facility] [address] [place] [address] Instructional Consultant: Mike Forde MD Comp Metabolic Profon 2022 Albumin [Mass/Vol] 4.2 g/dL Normal 3.5-5.2 [facility] Comment on above: Performed By: #### C DP, CP #### [facility] [address] [place] [address] Instructional Consultant: Mike Forde MD Alkaline Phos 48 U/L Normal 35-104 [facility] Comment on above: Performed By: #### C DP, CP #### [facility] [address] [place] [address] Instructional Consultant: Mike Forde MD ALT [Catalytic activity/Vol] 12 U/L Normal 5-33 [facility] Comment on above: Performed By: #### C DP, CP #### [facility] [address] [place] [address] Instructional Consultant: Mike Forde MD Anion gap [Moles/Vol] 15 mmol/L Normal 9-17 [facility] Comment on above: Performed By: #### C DP, CP #### [facility] [address] [place] [address] Instructional Consultant: Mike Forde MD AST [Catalytic activity/Vol] 11 U/L Normal <32 [facility] Comment on above: Performed By: #### C DP, CP #### [facility] [address] [place] [address] Instructional Consultant: Mike Forde MD Bilirubin [Mass/Vol] mg/dL Low 0.3-1.2 [facility] Comment on above: Performed By: #### C DP, CP #### [facility] [address] [place] [address] Instructional Consultant: Mike Forde MD BUN/CRE Ratio 14 Normal 9-20 [facility] Comment on above: Performed By: #### C DP, CP #### [facility] [address] [place] [address] Instructional Consultant: Mike Forde MD Calcium [Mass/Vol] 9.7 mg/dL Normal 8.6-10.4 [facility] Comment on above: Performed By: #### C DP, CP #### [facility] [address] [place] [address] Instructional Consultant: Mike Forde MD Chloride [Moles/Vol] 101 mmol/L Normal 98-107 [facility] Comment on above: Performed By: #### C DP, CP #### [facility] [address] [place], [place] [phone] Instructional Consultant: Mike Forde MD CO2 [Moles/Vol] 22 mmol/L Normal 20-31 [facility] Comment on above: Performed By: #### C DP, CP #### [facility] [address] [place], [place] [phone] Instructional Consultant: Mike Forde MD Creatinine [Mass/Vol] 0.5 mg/dL Normal 0.5-0.9 [facility] Comment on above: Performed By: #### C DP, CP #### [facility] [address] [place], [place] [phone] Instructional Consultant: Mike Forde MD GFR/1.73 sq M.predicted among non-blacks MDRD (S/P/Bld) [Vol rate/Area] mL/min/{1.73_m2} Normal >60 [facility] Comment on above: Result Comment: [...] #### C DP, CP #### [facility] [address] [place] [address] Instructional Consultant: Mike Forde MD Glucose [Mass/Vol] 90 mg/dL Normal 70-99 [facility] Comment on above: Performed By: #### C DP, CP #### [facility] [address] [place], [place] [phone] Instructional Consultant: Mike Forde MD Potassium [Moles/Vol] 3.5 mmol/L Low 3.7-5.3 [facility] Comment on above: Performed By: #### C DP, CP #### [facility] [address] [place], [place] [phone] Instructional Consultant: Mike Forde MD Protein [Mass/Vol] 7.5 g/dL Normal 6.4-8.3 [facility] Comment on above: Performed By: #### C DP, CP #### [facility] [address] [place], [place] [phone] Instructional Consultant: Mike Forde MD Sodium [Moles/Vol] 138 mmol/L Normal 135-144 [facility] Comment on above: Performed By: #### C DP, CP #### [facility] [address] [place], [place] [phone] Instructional Consultant: Mike Forde MD Urea nitrogen [Mass/Vol] 7 mg/dL Normal 6-20 [facility] Comment on above: Performed By: #### C DP, CP #### [facility] [address] [place], [place] [phone] Instructional Consultant: Mike Forde MD Basic Metabolic Profon 04-16 Anion gap [Moles/Vol] 15 mmol/L Normal 9-17 [facility] Comment on above: Performed By: #### C DP, BMP #### [facility] [address] [place], [place] [phone] Instructional Consultant: Mike Forde MD BUN/CRE Ratio 10 Normal 9-20 [facility] Comment on above: Performed By: #### C DP, BMP #### [facility] [address] [place], [place] [phone] Instructional Consultant: Mike Forde MD Calcium [Mass/Vol] 10.2 mg/dL Normal 8.6-10.4 [facility] Comment on above: Performed By: #### C DP, BMP #### [facility] [address] [place], [place] [phone] Instructional Consultant: Mike Forde MD Chloride [Moles/Vol] 98 mmol/L Normal 98-107 [facility] Comment on above: Performed By: #### C DP, BMP #### [facility] [address] [place] [address] Instructional Consultant: Mike Forde MD CO2 [Moles/Vol] 22 mmol/L Normal 20-31 [facility] Comment on above: Performed By: #### C DP, BMP #### [facility] [address] [place] [address] Instructional Consultant: Mike Forde MD Creatinine [Mass/Vol] 0.7 mg/dL Normal 0.5-0.9 [facility] Comment on above: Performed By: #### C DP, BMP #### [facility] [address] [place] [address] Instructional Consultant: Mike Forde MD GFR/1.73 sq M.predicted among non-blacks MDRD (S/P/Bld) [Vol rate/Area] mL/min/{1.73_m2} Normal >60 [facility] Comment on above: Result Comment: [...] #### C DP, BMP #### [facility] [address] [place] [address] Instructional Consultant: Mike Forde MD Glucose [Mass/Vol] 113 mg/dL High 70-99 [facility] Comment on above: Performed By: #### C DP, BMP #### [facility] [address] [place] [address] Instructional Consultant: Mike Forde MD Potassium [Moles/Vol] 3.4 mmol/L Low 3.7-5.3 [facility] Comment on above: Performed By: #### C DP, BMP #### [facility] [address] [place], [place] [phone] Instructional Consultant: Mike Forde MD Sodium [Moles/Vol] 135 mmol/L Normal 135-144 [facility] Comment on above: Performed By: #### C DP, BMP #### [facility] [address] [place], [place] [phone] Instructional Consultant: Mike Forde MD Urea nitrogen [Mass/Vol] 7 mg/dL Normal 6-20 [facility] Comment on above: Performed By: #### C DP, BMP #### [facility] [address] [place] [address] Instructional Consultant: Mike Forde MD CBC with Diffon 04-16-2023 Abs. Basophil 0.03 k/uL Normal 0.00-0.20 [facility] Comment on above: Performed By: #### C DP, BMP #### [facility] [address] [place] [phone] Instructional Consultant: Mike Forde MD Abs.Imm.Granulocyte 0.02 k/uL Normal 0.00-0.30 [facility] Comment on above: Performed By: #### C DP, BMP #### [facility] [address] [place], [place] [phone] Instructional Consultant: Mike Forde MD Abs.Neutrophil (Seg) 7.51 k/uL High 2.5-7.0 [facility] Comment on above: Performed By: #### C DP, BMP #### [facility] [address] [place], [place] [phone] Instructional Consultant: Mike Forde MD Basophils/100 WBC (Bld) 0 % Normal 0-2 [facility] Comment on above: Performed By: #### C DP, BMP #### [facility] [address] [place], [place] [phone] Instructional Consultant: Mike Forde MD Eosinophils (Bld) [#/Vol] 0.03 10*3/uL Normal 0.00-0.40 [facility] Comment on above: Performed By: #### C DP, BMP #### [facility] [address] [place], [place] [phone] Instructional Consultant: Mike Forde MD Eosinophils/100 WBC (Bld) 0 % Normal 0-5 [facility] Comment on above: Performed By: #### C DP, BMP #### [facility] [address] [place] [phone] Instructional Consultant: Mike Forde MD Erythrocyte distribution width (RBC) [Ratio] 11.8 % Low 12.1-15.2 [facility] Comment on above: Performed By: #### C DP, BMP #### [facility] [address] [place] [phone] Instructional Consultant: Mike Forde MD Hematocrit (Bld) [Volume fraction] 43.4 % Normal 36.0-46.0 [facility] Comment on above: Performed By: #### C DP, BMP #### [facility] [address] [place] [phone] Instructional Consultant: Miek Forde MD Hemoglobin (Bld) [Mass/Vol] 15.5 g/dL Normal 12.0-16.0 [facility] Comment on above: Performed By: #### C DP, BMP #### [facility] [address] [place], [place] [phone] Instructional Consultant: Mike Forde MD Immature granulocytes/100 WBC (Bld) 0 % Normal 0-5 [facility] Comment on above: Performed By: #### C DP, BMP #### [facility] [address] [place], [place] [phone] Instructional Consultant: Mike Forde MD Lymphocytes (Bld) [#/Vol] 2.33 10*3/uL Normal 1.00-4.80 [facility] Comment on above: Performed By: #### C DP, BMP #### [facility] [address] [place] [phone] Instructional Consultant: Mike Forde MD Lymphocytes/100 WBC (Bld) 22 % Normal 15-40 [facility] Comment on above: Performed By: #### C DP, BMP #### [facility] [address] [place] [phone] Instructional Consultant: Mike Forde MD MCH (RBC) [Entitic mass] 28.9 pg Normal 26.0-34.0 [facility] Comment on above: Performed By: #### C DP, BMP #### [facility] [address] [place] [address] Instructional Consultant: Mike Forde MD MCHC (RBC) [Mass/Vol] 35.7 g/dL Normal 31.0-37.0 [facility] Comment on above: Performed By: #### C DP, BMP #### [facility] [address] [place] [phone] Instructional Consultant: Mike Forde MD MCV (RBC) [Entitic vol] 80.8 fL Normal 80.0-100.0 [facility] Comment on above: Performed By: #### C DP, BMP #### [facility] [address] [place] [address] Instructional Consultant: Mike Forde MD Monocytes (Bld) [#/Vol] 0.88 10*3/uL Normal 0.00-1.00 [facility] Comment on above: Performed By: #### C DP, BMP #### [facility] [address] [place] [phone] Instructional Consultant: Mike Forde MD Monocytes/100 WBC (Bld) 8 % Normal 4-8 [facility] Comment on above: Performed By: #### C DP, BMP #### [facility] [address] [place], [place] [phone] ([phone] Instructional Consultant: Mike Forde MD Neutrophil (Seg) 70 % Normal 47-75 [facility] Comment on above: Performed By: #### C DP, BMP #### [facility] [address] [place], [place] [phone] ([phone] Instructional Consultant: Mike Forde MD Platelet mean volume (Bld) [Entitic vol] 10.5 fL Normal 6.0-12.0 [facility] Comment on above: Performed By: #### C DP, BMP #### [facility] [address] [place] [address] Instructional Consultant: Mike Forde MD Platelets (Bld) [#/Vol] 279 10*3/uL Normal 140-450 [facility] Comment on above: Performed By: #### C DP, BMP #### [facility] [address] [place] [phone] ([phone] Instructional Consultant: Mike Forde MD RBC (Bld) [#/Vol] 5.37 10*6/uL High 4.00-5.20 [facility] Comment on above: Performed By: #### C DP, BMP #### [facility] [address] [place] [phone] Instructional Consultant: Mike Forde MD WBC (Bld) [#/Vol] 10.8 10*3/uL Normal 3.5-11.0 [facility] Comment on above: Performed By: #### C DP, BMP #### [facility] [address] [place] [address] ([phone] Instructional Consultant: Mike Forde MD CBC with Auto Differentialon 12-13-2021 Absolute Eos # 0.00 [facility] Absolute Lymph # 1.90 [facility] Absolute [place] # 0.50 [facility] Basophils (Bld) [#/Vol] 0.00 10*3/uL [facility] Basophils/100 WBC (Bld) 0 % 0 - 2 % [facility] Differential Type YES [facility] Eosinophils/100 WBC (Bld) 0 % 0 - 5 % [facility] Hematocrit (Bld) [Volume fraction] 43.5 % 36 - 46 % [facility] Hemoglobin (Bld) [Mass/Vol] 14.6 g/dL 12.0 - 16.0 g/dL [facility] Lymphocytes/100 WBC (Bld) 21 % 15 - 40 % [facility] MCH (RBC) [Entitic mass] 28.9 pg 26 - 34 pg [facility] MCHC (RBC) [Mass/Vol] 33.5 g/dL 31 - 37 g/dL [facility] MCV (RBC) [Entitic vol] 86.2 fL 80 - 100 fL [facility] Monocytes/100 WBC (Bld) 5 % 4 - 8 % [facility] Platelet distribution width (Bld) [Ratio] 12.3 % 12.1 - 15.2 % [facility] Platelets (Bld) [#/Vol] 265 10*3/uL [facility] RBC (Bld) [#/Vol] 5.05 10*6/uL 4.0 - 5.2 m/uL [facility] Segmented neutrophils/100 WBC (Bld) 74 % 47 - 75 % [facility] Segs Absolute 6.60 [facility] WBC (Bld) [#/Vol] 9.1 10*3/uL [facility] Comprehensive Metabolic Pane davi 12-13-2021 Albumin [Mass/Vol] 4.3 g/dL 3.5 - 5.2 g/dL [facility] ALP (Bld) [Catalytic activity/Vol] 77 U/L 35 - 104 U/L [facility] ALT [Catalytic activity/Vol] 23 U/L 5 - 33 U/L [facility] Anion gap [Moles/Vol] 11 mmol/L 9 - 17 mmol/L [facility] AST [Catalytic activity/Vol] 15 U/L <32 [facility] Bilirubin [Mass/Vol] 0.51 mg/dL 0.30 - 1.20 mg/dL [facility] Calcium [Mass/Vol] 9.6 mg/dL 8.6 - 10.4 mg/dL [facility] Chloride [Moles/Vol] 102 mmol/L 98 - 107 mmol/L [facility] CO2 [Moles/Vol] 25 mmol/L 20 - 31 mmol/L [facility] Creatinine [Mass/Vol] 0.77 mg/dL 0.50 - 0.90 mg/dL [facility] Free PSA/Total PSA [Mass fraction] 7.4 g/dL 6.4 - 8.3 g/dL [facility] GFR >60 >60 mL/min [facility] GFR Non- >60 >60 mL/min [facility] GFR/1.73 sq M.predicted MDRD (S/P/Bld) [Vol rate/Area] [facility] Comment on above: Average GFR for 20-2 9 years old: 116 mL/min/1.73sq m Chronic Kidney Disease: <60 mL/min/1.73sq m Kidney failure: <15 mL/min/1.73sq m eGFR calculated using average adult body mass. Additional eGFR calculator available at: http://www.[employer]/multiple_crcl_2012.htm Glucose [Mass/Vol] 93 mg/dL 70 - 99 mg/dL [facility] Potassium [Moles/Vol] 4.2 mmol/L 3.7 - 5.3 mmol /L [facility] Sodium [Moles/Vol] 138 mmol/L 135 - 144 mmol/L [facility] Urea nitrogen (BldV) [Mass/Vol] 9 mg/dL 6 - 20 mg/dL [facility] Urea nitrogen/Creatinine (Bld) [Mass ratio] 12 [facility] Encounters Encounter Date Encounter Type Care Provider [...] Emergency department patient visit ASHLEYEZIO Lozano MARYANN [facility] Start: 04-16-2023 End: 04-17-2023 Emergency department patient visit ARPIT PAREKH [facility] Start: 12-13-2021 End: 12-13-2021 Subsequent [...] DTaP/Tdap/Td vaccine (3 - Td or Tdap) [facility] Start: 12-13-2022 Depression Screen Depression Screen [facility] Start: 03-14-2022 COVID-19 Vaccine (3 - Booster for Pfizer series) COVID-19 Vaccine (3 - Booster for Pfizer series) [facility] Start: 03-10-2022 Influenza vaccination Flu vaccine (S angelo Ended) [facility] Start: 01-11-2022 End: 01-11-2022 Patient encounter procedure 01/11/2022 Office Visit Family Medicine 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 APRN - CNP [address] [place] [phone] [facility] Start: 2019 Screening for malign ant neoplasm of cervix Pap smear [facility] Start: 03-10-2019 Influenza vaccination Flu vaccine (# 1) [place], [place] Start: 2017 DTaP/Tdap/Td vaccine (1 - Tdap) DTaP/Tdap/Td vaccine (1 - Tdap) [place] Start: 2016 Hepatitis C screening Hepatitis C sc reen [facility] Start: 2014 Chlamydia screen Chlamydia screen [place], [place] Start: 2014 Screening for Chlamy nathalie trachomatis Chlamydia screen [facility] Start: 2013 HIV screen HIV screen [place], [place] Start: 2013 HIV screening HIV screen [facility] Start: 2013 HPV vaccine (1 - Fem dana 3-dose series) HPV vaccine (1 - Female 3-dose series) [place], [place] Start: 2011 Varicella Vaccine (1 of 2 - 13+ 2-dose series) Varicella Vaccine (1 of 2 - 13+ 2-dose series) [place], [place] Start: 2009 HPV vaccine (1 - 2-d ose series) HPV vaccine (1 - 2-dose series) [facility] Start: 1999 Varicella vaccine (1 of 2 - 2-dose childhood series) Varicella vaccine (1 of 2 - 2-dose childhood series) [facility] End: 12-13-2021 CBC W Auto Differential panel - Blood CBC with Auto Differential Lab Routine Diarrhea, unspecified type Blood in stool, gustavo 1 Occurrences starting 12/13/2021 until 12/13/2021 [facility] Work Phone: Comment on above: 1 Occurrences starti ng 12/13/2021 until 12/13/2021 End: 12-13-2021 Celiac Disease Panel Celiac Disease Panel Lab Routine Diarrhea, unspecified type Abdominal cramping 1 Occurrences starting 12/13/2021 until 12/13/2021 [facility] Work Phone: Comment on above: 1 Occurrences starti ng 12/13/2021 until 12/13/2021 End: 12-13-2021 Celiac Plus [email or web address] Work Phone: Comment on above: Once for 1 Occurrenc es starting 12/13/2021 until 12/13/2021 End: 12-13-2021 Comprehensive metabolic 2000 panel - Serum or Plasma Comprehensive Metabolic Panel Lab Routine Blood in stool, gustavo Gastroesophageal reflux disease without esophagitis 1 Occurrences starting 12/13/2021 until 12/13/2021 [facility]in[facility] Phone: Comment on above: 1 Occurrences starti ng 12/13/2021 until 12/13/2021 End: 03-01-2019 Varicella Zoster Antibody, IgG Varicella Zoster Antibody, IgG Lab Routine Need for varicella vaccine 1 Occurrences starting 03/01/2019 until 03/01/2019 [place], [place] Comment on above: 1 Occurrences starti ng 03/01/2019 until 03/01/2019 Varicella Zoster Antibody, IgG Varicella Zoster Antibody, IgG Lab Routine Need for varicella vaccine 03/01/2019 11:50 AM EDT [place], [place] Immunizations Immunization Date Immunization Notes Care Provider Rohit mcnally 09-18-2021 COVID-19, Pfizer Pur ple top, DILUTE for use, 12+ yrs, 30mcg/0.3mL dose 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 WHEEL FILLER - MEASUREMENT SUPERINTENDENT Work Phone: [facility] [employer] Work Phone: 11-27-2019 Hepatitis B vaccine (recombinant), CpG adjuvanted 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 WHEEL FILLER - MEASUREMENT SUPERINTENDENT Work Phone: [facility] [employer] Work Phone: 11-27-2019 tetanus toxoid, redu gordon diphtheria toxoid, and acellular pertussis vaccine, adsorbed 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 WHEEL FILLER - MEASUREMENT SUPERINTENDENT Work Phone: [facility] [employer] Work Phone: 03-27-2019 hepatitis B vaccine, adult dosage 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 WHEEL FILLER - MEASUREMENT SUPERINTENDENT Work Phone: [facility] [employer] Work Phone: 03-27-2019 measles, mumps and rubella virus vaccine 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 APRN - [facility] Work Phone: [facility] [employer] Work Phone: 03-03-2019 measles, mumps and rubella virus vaccine 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 WHEEL FILLER - [facility] Work Phone: [facility] [employer] Work Phone: 02-25-2019 hepatitis B vaccine, adult dosage 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 [facility] [employer] [facility] Payers Date Payer Category Payer Unknown [id number] 2022 Private Health Insurance [id number] 2018 Unknown BCBS [place] P PO xxxxxxxxxxxx 2018-Present [address] [place] [address] xxxxxxxxxxxx [id number] 2018 Unknown [id number] 1998 Unknown [id number] 1998 Unknown [id number] 1998 Unknown [id number] .[id number] 1998 Unknown [id number] .[id number] 1998 Unknown [id number] .1259 1998 Unknown [id number] .1259 1998 Unknown [id number] .1259 1998 Unknown [id number] .1259 Social History Date Type Detail Facility Start: 04-25-2016 End: 11-26-2018 Tobacco smoking status NHIS Never smoker [place], [place] Start: 11-26-2018 Alcohol intake No Rachel [place], [place] Start: 2000 Sex Assigned At Not on file M [place], [place] Start: 04-25-2016 Tobacco use and exposure Smokeless tobacco non-user [employer] Phone: Start: 12-13-2021 Alcohol intake Current non-dr qi specialist of alcohol (finding) [employer] Phone: Start: 12-13-2021 History SDOH Financial 5 [employer] Phone: Start: 12-13-2021 History 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 1 [employer] Phone: Evaluation note Note Date & Type Note Facility Evaluation note Diagnosis Blood in stool, gustavo Blood in stool Gastroesophageal reflux disease without esophagitis Esophageal reflux Diarrhea, unspecified type Abdominal cramping Abdominal pain, unspecified site documented in this encounter [employer] Phone: Assessments Diagnosis Need for varicella vaccine Need for prophylactic vaccination and inoculation against varicella Advance Directives No Advanced Directives Records FoundDocuments on File Type Date Recorded 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 Bulk Clerk Expl anation Advance Directives and Living Will Power of Framing Mill Operator Documents on File Type Date Recorded Patient Bulk Clerk Expl anation ACP-Advance Directive ACP-Power of Framing Mill Operator Summary Purpose Family History No Family History Records FoundNo Family History Records Found Additional Source Comments Care Teams (unrecognized sec tion and content) Occupational Therapy Teacher Relationship Specialty Start Date End Date 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, DO - MEASUREMENT SUPERINTENDENT [address] [place] [address] PCP - General Nurse Practitioner 11/23/16 INFORMATION SOURCE (unrecogn ized section and content) DATE CREATED AUTHOR 06/02/2023 Rachel allen DATE CREATED AUTHOR AUTHORSera GAGNON 10/09/2023 [facility] FOR RECORDS PERTAINING TO PATIENTS WHO [...] BE BASED ON THE PRIMARY CLINICAL RECORDS. [employer] provides no warranty or guarantee of the accuracy or completeness of information in this document.
--- NOTE | 2023-10-21 09:01 | US_ITS ---
[address] [address] Patient Name: DANIEL ARMENDARIZ MRN: [id number] date: 2000 Sex: F Assigned Patient Location: [facility] Current Patient Location: Accession/Order Number: [id number] Exam Date: 10/21/2023 09:02 Report Date: 10/23/2023 07:06 At the request of: NAHED SALINAS Procedure: US OB BPP w non-stress EXAMINATION: US OB BPP w non-stress HISTORY: Hyperthyroidism O99.280 COMPARISON: No relevant comparison available. TECHNIQUE: Ultrasound biophysical profile was performed in the radiology department. FINDINGS: BREATHING MOVEMENTS: 2.0 GROSS BODY MOVEMENTS: 2.0 TONE: 2.0 QUALITATIVE AMNIOTIC FLUID VOLUME: 2.0 PRESENTATION: CEPHALIC HEART RATE: 150.0 bpm H.B./min AMNIOTIC FLUID VOLUME: 18.3 cm cm GESTATIONAL AGE: 35 weeks 0 days CONCLUSION: Total biophysical profile score: 8.0 Electronically authenticated by: KENDALL KRISHNAN Date: 10/23/2023 07:06
[2023-10-21 09:42] VITALS: BP 114/77; PULSE 110
== END 2023-10-21 10:45 | disposition home or self-care (01) ==
LOC: US 00:22 → FBC 09:00
PROVIDERS: Visit Provider Obstetrics & Gynecology
DX: O99.280 Endocrine, nutritional and metabolic diseases complicating pregnancy, unspecified trimester (principal); Z3A.35 35 weeks gestation of pregnancy; E05.90 Thyrotoxicosis, unspecified without thyrotoxic crisis or storm
CPT/HCPCS: 76818

== ENCOUNTER 2023-10-25 07:28 | Outpatient (OUT) | payer BC, OTHER, SELFPAY ==
--- OUTSIDE RECORDS SUMMARY | 2023-10-25 07:30 | XMS_ITS | CCD ---
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 Basophil 0.01 k/uL Normal 0.00-0.20 [facility] Comment on above: Performed By: #### C DP, CP #### [facility] [address] [place] [address] Business Operations Specialist: Mike Forde MD Abs.Imm.Granulocyte 0.01 k/uL Normal 0.00-0.30 [facility] Comment on above: Performed By: #### C DP, CP #### [facility] [address] [place] [address] Business Operations Specialist: Mike Forde MD Abs.Neutrophil (Seg) 6.24 k/uL Normal 2.5-7.0 [facility] Comment on above: Performed By: #### C DP, CP #### [facility] [address] [place] [address] Business Operations Specialist: Mike Forde MD Basophils/100 WBC (Bld) 0 % Normal 0-2 [facility] Comment on above: Performed By: #### C DP, CP #### [facility] [address] [place] [address] Business Operations Specialist: Mike Forde MD Eosinophils (Bld) [#/Vol] 0.00 10*3/uL Normal 0.00-0.40 [facility] Comment on above: Performed By: #### C DP, CP #### [facility] [address] [place] [address] Business Operations Specialist: Mike Forde MD Eosinophils/100 WBC (Bld) 0 % Normal 0-5 [facility] Comment on above: Performed By: #### C DP, CP #### [facility] [address] [place] [address] Business Operations Specialist: Mike Forde MD Erythrocyte distribution width (RBC) [Ratio] 11.9 % Low 12.1-15.2 [facility] Comment on above: Performed By: #### C DP, CP #### [facility] [address] [place] [address] Business Operations Specialist: Mike Forde MD Hematocrit (Bld) [Volume fraction] 41.1 % Normal 36.0-46.0 [facility] Comment on above: Performed By: #### C DP, CP #### [facility] [address] [place] [address] Business Operations Specialist: Mike Forde MD Hemoglobin (Bld) [Mass/Vol] 14.5 g/dL Normal 12.0-16.0 [facility] Comment on above: Performed By: #### C DP, CP #### [facility] [address] [place] [address] Business Operations Specialist: Mike Forde MD Immature granulocytes/100 WBC (Bld) 0 % Normal 0-5 [facility] Comment on above: Performed By: #### C DP, CP #### [facility] [address] [place] [phone] Business Operations Specialist: Mike Forde MD Lymphocytes (Bld) [#/Vol] 1.74 10*3/uL Normal 1.00-4.80 [facility] Comment on above: Performed By: #### C DP, CP #### [facility] [address] [place] [address] Business Operations Specialist: Mike Forde MD Lymphocytes/100 WBC (Bld) 21 % Normal 15-40 [facility] Comment on above: Performed By: #### C DP, CP #### [facility] [address] [place] [address] Business Operations Specialist: Mike Forde MD MCH (RBC) [Entitic mass] 29.2 pg Normal 26.0-34.0 [facility] Comment on above: Performed By: #### C DP, CP #### [facility] [address] [place] [address] Business Operations Specialist: Mike Forde MD MCHC (RBC) [Mass/Vol] 35.3 g/dL Normal 31.0-37.0 [facility] Comment on above: Performed By: #### C DP, CP #### [facility] [address] [place] [address] Business Operations Specialist: Mike Forde MD MCV (RBC) [Entitic vol] 82.9 fL Normal 80.0-100.0 [facility] Comment on above: Performed By: #### C DP, CP #### [facility] [address] [place] [address] Business Operations Specialist: Mike Forde MD Monocytes (Bld) [#/Vol] 0.50 10*3/uL Normal 0.00-1.00 [facility] Comment on above: Performed By: #### C DP, CP #### [facility] [address] [place] [address] Business Operations Specialist: Mike Forde MD Monocytes/100 WBC (Bld) 6 % Normal 4-8 [facility] Comment on above: Performed By: #### C DP, CP #### [facility] [address] [place] [address] Business Operations Specialist: Mike Forde MD Neutrophil (Seg) 73 % Normal 47-75 [facility] Comment on above: Performed By: #### C DP, CP #### [facility] [address] [place] [address] Business Operations Specialist: Mike Forde MD Platelet mean volume (Bld) [Entitic vol] 10.4 fL Normal 6.0-12.0 [facility] Comment on above: Performed By: #### C DP, CP #### [facility] [address] [place], [place] [phone] Business Operations Specialist: Mike Forde MD Platelets (Bld) [#/Vol] 227 10*3/uL Normal 140-450 [facility] Comment on above: Performed By: #### C DP, CP #### [facility] [address] [place], [place] [phone] Business Operations Specialist: Mike Forde MD RBC (Bld) [#/Vol] 4.96 10*6/uL Normal 4.00-5.20 [facility] Comment on above: Performed By: #### C DP, CP #### [facility] [address] [place], [place] [phone] Business Operations Specialist: Mike Forde MD WBC (Bld) [#/Vol] 8.5 10*3/uL Normal 3.5-11.0 [facility] Comment on above: Performed By: #### C DP, CP #### [facility] [address] [place], [place] [phone] Business Operations Specialist: Mike Forde MD Comp Metabolic Profon 2022 Albumin [Mass/Vol] 4.2 g/dL Normal 3.5-5.2 [facility] Comment on above: Performed By: #### C DP, CP #### [facility] [address] [place], [place] [phone] Business Operations Specialist: Mike Forde MD Alkaline Phos 48 U/L Normal 35-104 [facility] Comment on above: Performed By: #### C DP, CP #### [facility] [address] [place], [place] [phone] Business Operations Specialist: Mike Forde MD ALT [Catalytic activity/Vol] 12 U/L Normal 5-33 [facility] Comment on above: Performed By: #### C DP, CP #### [facility] [address] [place] [address] Business Operations Specialist: Mike Forde MD Anion gap [Moles/Vol] 15 mmol/L Normal 9-17 [facility] Comment on above: Performed By: #### C DP, CP #### [facility] [address] [place] [address] Business Operations Specialist: Mike Forde MD AST [Catalytic activity/Vol] 11 U/L Normal <32 [facility] Comment on above: Performed By: #### C DP, CP #### [facility] [address] [place] [address] Business Operations Specialist: Mike Forde MD Bilirubin [Mass/Vol] mg/dL Low 0.3-1.2 [facility] Comment on above: Performed By: #### C DP, CP #### [facility] [address] [place] [address] Business Operations Specialist: Mike Forde MD BUN/CRE Ratio 14 Normal 9-20 [facility] Comment on above: Performed By: #### C DP, CP #### [facility] [address] [place] [address] Business Operations Specialist: Mike Forde MD Calcium [Mass/Vol] 9.7 mg/dL Normal 8.6-10.4 [facility] Comment on above: Performed By: #### C DP, CP #### [facility] [address] [place] [address] Business Operations Specialist: Mike oFrde MD Chloride [Moles/Vol] 101 mmol/L Normal 98-107 [facility] Comment on above: Performed By: #### C DP, CP #### [facility] [address] [place], [place] [phone] Business Operations Specialist: Mike Forde MD CO2 [Moles/Vol] 22 mmol/L Normal 20-31 [facility] Comment on above: Performed By: #### C DP, CP #### [facility] [address] [place], [place] [phone] Business Operations Specialist: Mike Forde MD Creatinine [Mass/Vol] 0.5 mg/dL Normal 0.5-0.9 [facility] Comment on above: Performed By: #### C DP, CP #### [facility] [address] [place], [place] [phone] Business Operations Specialist: Mike Forde MD GFR/1.73 sq M.predicted among non-blacks MDRD (S/P/Bld) [Vol rate/Area] mL/min/{1.73_m2} Normal >60 [facility] Comment on above: Result Comment: These [...] Performed By: #### C DP, CP #### [facility] [address], [place] [phone] Business Operations Specialist: Mike Forde MD Glucose [Mass/Vol] 90 mg/dL Normal 70-99 [facility] Comment on above: Performed By: #### C DP, CP #### [facility] [address] [place] [address] Business Operations Specialist: Mike Forde MD Potassium [Moles/Vol] 3.5 mmol/L Low 3.7-5.3 [facility] Comment on above: Performed By: #### C DP, CP #### [facility] [address] [place] [address] Business Operations Specialist: Mike Forde MD Protein [Mass/Vol] 7.5 g/dL Normal 6.4-8.3 [facility] Comment on above: Performed By: #### C DP, CP #### [facility] [address] [place], [place] [phone] Business Operations Specialist: Mike Forde MD Sodium [Moles/Vol] 138 mmol/L Normal 135-144 [facility] Comment on above: Performed By: #### C DP, CP #### [facility] [address] [place], [place] [phone] Business Operations Specialist: Mike Forde MD Urea nitrogen [Mass/Vol] 7 mg/dL Normal 6-20 [facility] Comment on above: Performed By: #### C DP, CP #### [facility] [address] [place], [place] [phone] Business Operations Specialist: Mike Forde MD Basic Metabolic Profon 04-16 Anion gap [Moles/Vol] 15 mmol/L Normal 9-17 [facility] Comment on above: Performed By: #### C DP, BMP #### [facility] [address] [place], [place] [phone] Business Operations Specialist: Mike Forde MD BUN/CRE Ratio 10 Normal 9-20 [facility] Comment on above: Performed By: #### C DP, BMP #### [facility] [address] [place], [place] [phone] Business Operations Specialist: Mike Forde MD Calcium [Mass/Vol] 10.2 mg/dL Normal 8.6-10.4 [facility] Comment on above: Performed By: #### C DP, BMP #### [facility] [address] [place], [place] [phone] Business Operations Specialist: Mike Forde MD Chloride [Moles/Vol] 98 mmol/L Normal 98-107 [facility] Comment on above: Performed By: #### C DP, BMP #### [facility] [address] [place], [place] [phone] Business Operations Specialist: Mike Forde MD CO2 [Moles/Vol] 22 mmol/L Normal 20-31 [facility] Comment on above: Performed By: #### C DP, BMP #### [facility] [address] [place] [address] Business Operations Specialist: Mike Forde MD Creatinine [Mass/Vol] 0.7 mg/dL Normal 0.5-0.9 [facility] Comment on above: Performed By: #### C DP, BMP #### [facility] [address] [place] [address] Business Operations Specialist: Mike Forde MD GFR/1.73 sq M.predicted among non-blacks MDRD (S/P/Bld) [Vol rate/Area] mL/min/{1.73_m2} Normal >60 [facility] Comment on above: Result Comment: These [...] Performed By: #### C DP, BMP #### [facility] [address] [place] [address] Business Operations Specialist: Mike Fodre MD Glucose [Mass/Vol] 113 mg/dL High 70-99 [facility] Comment on above: Performed By: #### C DP, BMP #### [facility] [address] [place], [place] [phone] Business Operations Specialist: Mike Forde MD Potassium [Moles/Vol] 3.4 mmol/L Low 3.7-5.3 [facility] Comment on above: Performed By: #### C DP, BMP #### [facility] [address] [place], [place] [phone] Business Operations Specialist: Mike Forde MD Sodium [Moles/Vol] 135 mmol/L Normal 135-144 [facility] Comment on above: Performed By: #### C DP, BMP #### [facility] [address] [place], [place] [phone] Business Operations Specialist: Mike Forde MD Urea nitrogen [Mass/Vol] 7 mg/dL Normal 6-20 [facility] Comment on above: Performed By: #### C DP, BMP #### [facility] [address] [place] [address] Business Operations Specialist: Mike Forde MD CBC with Diffon 04-16-2023 Abs. Basophil 0.03 k/uL Normal 0.00-0.20 [facility] Comment on above: Performed By: #### C DP, BMP #### [facility] [address] [place], [place] [phone] Business Operations Specialist: Mike Forde MD Abs.Imm.Granulocyte 0.02 k/uL Normal 0.00-0.30 [facility] Comment on above: Performed By: #### C DP, BMP #### [facility] [address] [place], [place] [phone] Business Operations Specialist: Mike Forde MD Abs.Neutrophil (Seg) 7.51 k/uL High 2.5-7.0 [facility] Comment on above: Performed By: #### C DP, BMP #### [facility] [address] [place] [address] Business Operations Specialist: Mike Forde MD Basophils/100 WBC (Bld) 0 % Normal 0-2 [facility] Comment on above: Performed By: #### C DP, BMP #### [facility] [address] [place] [phone] Business Operations Specialist: Mike Forde MD Eosinophils (Bld) [#/Vol] 0.03 10*3/uL Normal 0.00-0.40 [facility] Comment on above: Performed By: #### C DP, BMP #### [facility] [address] [place], [place] [phone] Business Operations Specialist: Mike Forde MD Eosinophils/100 WBC (Bld) 0 % Normal 0-5 [facility] Comment on above: Performed By: #### C DP, BMP #### [facility] [address] [place] [address] Business Operations Specialist: Mike Forde MD Erythrocyte distribution width (RBC) [Ratio] 11.8 % Low 12.1-15.2 [facility] Comment on above: Performed By: #### C DP, BMP #### [facility] [address] [place], [place] [phone] Business Operations Specialist: Mike Forde MD Hematocrit (Bld) [Volume fraction] 43.4 % Normal 36.0-46.0 [facility] Comment on above: Performed By: #### C DP, BMP #### [facility] [address] [place], [place] [phone] Business Operations Specialist: Mike Forde MD Hemoglobin (Bld) [Mass/Vol] 15.5 g/dL Normal 12.0-16.0 [facility] Comment on above: Performed By: #### C DP, BMP #### [facility] [address] [place] [address] Business Operations Specialist: Mike Forde MD Immature granulocytes/100 WBC (Bld) 0 % Normal 0-5 [facility] Comment on above: Performed By: #### C DP, BMP #### [facility] [address] [place], [place] [phone] Business Operations Specialist: Mike Forde MD Lymphocytes (Bld) [#/Vol] 2.33 10*3/uL Normal 1.00-4.80 [facility] Comment on above: Performed By: #### C DP, BMP #### [facility] [address] [place] [address] Business Operations Specialist: Mike Forde MD Lymphocytes/100 WBC (Bld) 22 % Normal 15-40 [facility] Comment on above: Performed By: #### C DP, BMP #### [facility] [address] [place] [address] Business Operations Specialist: Mike Forde MD MCH (RBC) [Entitic mass] 28.9 pg Normal 26.0-34.0 [facility] Comment on above: Performed By: #### C DP, BMP #### [facility] [address] [place] [address] Business Operations Specialist: Mike Forde MD MCHC (RBC) [Mass/Vol] 35.7 g/dL Normal 31.0-37.0 [facility] Comment on above: Performed By: #### C DP, BMP #### [facility] [address] [place] [address] Business Operations Specialist: Mike Forde MD MCV (RBC) [Entitic vol] 80.8 fL Normal 80.0-100.0 [facility] Comment on above: Performed By: #### C DP, BMP #### [facility] [address] [place] [address] Business Operations Specialist: Mike Forde MD Monocytes (Bld) [#/Vol] 0.88 10*3/uL Normal 0.00-1.00 [facility] Comment on above: Performed By: #### C DP, BMP #### [facility] [address] [place] [address] Business Operations Specialist: Mike Forde MD Monocytes/100 WBC (Bld) 8 % Normal 4-8 [facility] Comment on above: Performed By: #### C DP, BMP #### [facility] [address] [place], [place] [phone] Business Operations Specialist: Mike Forde MD Neutrophil (Seg) 70 % Normal 47-75 [facility] Comment on above: Performed By: #### C DP, BMP #### [facility] [address] [place] [address] [phone] Business Operations Specialist: Mike Forde MD Platelet mean volume (Bld) [Entitic vol] 10.5 fL Normal 6.0-12.0 [facility] Comment on above: Performed By: #### C DP, BMP #### [facility] [address] [place] [address] [phone] Business Operations Specialist: Mike Forde MD Platelets (Bld) [#/Vol] 279 10*3/uL Normal 140-450 [facility] Comment on above: Performed By: #### C DP, BMP #### [facility] [address] [place] [address] [phone] Business Operations Specialist: Mike Forde MD RBC (Bld) [#/Vol] 5.37 10*6/uL High 4.00-5.20 [facility] Comment on above: Performed By: #### C DP, BMP #### [facility] [address] [place] [address] [phone] Business Operations Specialist: Mike Forde MD WBC (Bld) [#/Vol] 10.8 10*3/uL Normal 3.5-11.0 [facility] Comment on above: Performed By: #### C DP, BMP #### [facility] [address] [place] [address] [phone] Business Operations Specialist: Mike Forde MD CBC with Auto Differentialon 12-13-2021 Absolute Eos # 0.00 [facility] Absolute Lymph # 1.90 [facility] Absolute [place] # 0.50 [facility] Basophils (Bld) [#/Vol] 0.00 10*3/uL [facility] Basophils/100 WBC (Bld) 0 % 0 - 2 % [facility] Differential Type YES [facility] Eosinophils/100 WBC (Bld) 0 % [...] 31 - 37 g/dL [facility] MCV (RBC) [Entitic vol] 86.2 fL 80 - 100 fL [facility] Monocytes/100 WBC (Bld) 5 % 4 - 8 % [facility] Platelet distribution width (Bld) [Ratio] 12.3 % 12.1 - 15.2 % [facility] Platelets (Bld) [#/Vol] 265 10*3/uL [facility] RBC (Bld) [#/Vol] 5.05 10*6/uL 4.0 - 5.2 m/uL [facility] Segmented neutrophils/100 WBC (Bld) 74 % 47 - 75 % [facility] Segs Absolute 6.60 [facility] WBC (Bld) [#/Vol] 9.1 10*3/uL [facility] Comprehensive Metabolic Pane davi 12-13-2021 Albumin [Mass/Vol] 4.3 g/dL 3.5 - 5.2 g/dL [facility] ALP (Bld) [Catalytic activity/Vol] 77 U/L [...] [Moles/Vol] 25 mmol/L 20 - 31 mmol/L [facility] Creatinine [Mass/Vol] 0.77 mg/dL 0.50 [...] body mass. Additional eGFR calculator available at: [email or web address] Glucose [Mass/Vol] 93 mg/dL 70 - 99 mg/dL [facility] Potassium [Moles/Vol] 4.2 mmol/L 3.7 - 5.3 mmol /L [facility] Sodium [Moles/Vol] 138 mmol/L 135 - 144 mmol/L [facility] Urea nitrogen (BldV) [Mass/Vol] 9 mg/dL 6 - 20 mg/dL [facility] Urea nitrogen/Creatinine (Bld) [Mass ratio] 12 [facility] Encounters Encounter Date Encounter Type Care Provider Facility Start: 10-23-2023 End: 10-23-2023 ambulatory NAHED SALINAS Not Available Start: 10-05-2023 End: 10-05-2023 ambulatory ALICIA CLANCY [...] 05-31-2023 Emergency department patient visit TERRENCE WOLF [facility] Start: 04-16-2023 End: 04-17-2023 [facility] Start: 12-13-2021 End: 12-13-2021 Subsequent hospital visit by physician Arpit Leblanc CNP Work Phone: [facility] Comment on above: Blood in stool, zeina k; Gastroesophageal reflux disease without esophagitis; Diarrhea, unspecified type; Abdominal cramping Start: 03-01-2019 End: 03-01-2019 Subsequent hospital visit by physician 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 [facility] Comment on above: Need for varicella v accine Procedures Date Procedure Procedure Detail Performing Clinician Start: 12-13-2021 Comprehensive metabo lic panel Arpit Leblanc CNP Work Phone: Plan of Treatment Date Care Activity Detail Author Start: 11-26-2029 DTaP/Tdap/Td vaccine (3 - Td or Tdap) DTaP/Tdap/Td vaccine (3 - Td or Tdap) [facility] Start: 12-13-2022 Depression Screen Depression Screen [facility] Start: 03-14-2022 COVID-19 Vaccine (3 - Booster for Pfizer series) COVID-19 Vaccine (3 - Booster for Pfizer series) [facility] [employer] [facility] Start: 03-10-2022 Influenza vaccination Flu vaccine (S angelo Ended) [facility] Start: 01-11-2022 End: 01-11-2022 Patient encounter procedure 01/11/2022 Office Visit Family Medicine 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, CREDIT CHARGE AUTHORIZER - [employer] [address] [place] [address] [facility] [employer] Start: 2019 Screening for malign ant neoplasm of cervix Pap smear [facility] Start: 03-10-2019 Influenza vaccination Flu vaccine (# 1) [place], [place] Start: 2017 DTaP/Tdap/Td vaccine (1 - Tdap) DTaP/Tdap/Td vaccine (1 - Tdap) [place] Start: 2016 Hepatitis C screening Hepatitis C sc reen [facility] Start: 2014 Chlamydia screen Chlamydia screen [place], [place] Start: 2014 Screening for Chlamy nathalie trachomatis Chlamydia screen [facility] Start: 2013 HIV screen HIV screen [place], [place] Start: 2013 HIV screening HIV screen [facility] Start: 2013 HPV vaccine (1 - Fem dana 3-dose series) HPV vaccine (1 - Female 3-dose series) [place], [place] Start: 2011 Varicella Vaccine (1 of 2 - 13+ 2-dose series) Varicella Vaccine (1 of 2 - 13+ 2-dose series) [place], [place] Start: 2009 HPV vaccine (1 - [...] 12/13/2021 until 12/13/2021 [facility] Work Phone: Comment on above: 1 Occurrences starti ng 12/13/2021 until 12/13/2021 End: 12-13-2021 Celiac Disease Panel Celiac Disease Panel Lab Routine Diarrhea, unspecified type Abdominal cramping 1 Occurrences starting 12/13/2021 until 12/13/2021 [employer] Phone: Comment on above: 1 Occurrences starti ng 12/13/2021 until 12/13/2021 End: 12-13-2021 C[facility] [employer] Phone: Comment on above: Once for 1 Occurrenc es starting 12/13/2021 until 12/13/2021 End: 12-13-2021 Comprehensive metabolic 2000 panel - Serum or Plasma Comprehensive Metabolic Panel Lab Routine Blood in stool, gustavo Gastroesophageal reflux disease without esophagitis 1 Occurrences starting 12/13/2021 until 12/13/2021 [employer] Phone: Comment on above: 1 Occurrences starti ng 12/13/2021 until 12/13/2021 End: 03-01-2019 Varicella Zoster Antibody, IgG Varicella Zoster Antibody, IgG Lab Routine Need for varicella vaccine 1 Occurrences starting 03/01/2019 until 03/01/2019 [place], [place] Comment on above: 1 Occurrences starti ng 03/01/2019 until 03/01/2019 Varicella Zoster Antibody, IgG Varicella Zoster Antibody, IgG Lab Routine Need for varicella vaccine 03/01/2019 11:50 AM EDT [place], [place] Immunizations Immunization Date Immunization Notes Care Provider Rohit mcnally 09-18-2021 COVID-19, Pfizer Pur ple top, DILUTE for use, 12+ yrs, 30mcg/0.3mL dose 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 APRN - [employer] Work Phone: [facility] [employer] Work Phone: 11-27-2019 Hepatitis B vaccine (recombinant), CpG adjuvanted 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 APRN - [employer] Work Phone: [facility] [employer] Work Phone: 11-27-2019 tetanus toxoid, redu gordon diphtheria toxoid, and acellular pertussis vaccine, adsorbed 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 CREDIT CHARGE AUTHORIZER - [employer] Work Phone: [employer] Work Phone: 03-27-2019 hepatitis B vaccine, adult dosage 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 APRN - [facility] Work Phone: [facility] [employer] Work Phone: 03-27-2019 measles, mumps and rubella virus vaccine 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 CREDIT CHARGE AUTHORIZER - [facility] Work Phone: [employer] Work Phone: 03-03-2019 measles, mumps and rubella virus vaccine 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 CREDIT CHARGE AUTHORIZER - [employer] Work Phone: [employer] Work Phone: 02-25-2019 hepatitis B vaccine, adult dosage 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 [facility] [employer] Payers Date Payer Category Payer Unknown [id number] 2022 Private Health Insurance [id number] 2018 Unknown BCBS [place] - [place] P PO xxxxxxxxxxxx 2018-Present [address] [place] [address] xxxxxxxxxxxx [id number] 2018 Unknown [id number] 1998 Unknown [id number] [id number] .174 1998 Unknown [id number] [id number] .174 1998 Unknown [id number] [id number] .1259 1998 Unknown [id number] [id number] .1259 1998 Unknown [id number] [id number] .1259 1998 Unknown [id number] 2.16.840.1.027801.3.579.2 .1259 1998 Unknown [id number] [id number] .1259 1998 Unknown [id number] [id number] .1259 1998 Unknown [id number] .1259 Social History Date Type Detail Facility Start: 04-25-2016 End: 11-26-2018 Tobacco smoking status NHIS Never smoker [place], [place] Start: 11-26-2018 [facility] [place] [place] Start: 1998 Sex Assigned At Not on file [place], [place] Start: 04-25-2016 Tobacco use and exposure Smokeless tobacco non-user [employer] Phone: Start: 12-13-2021 Alcohol intake 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) [employer] Phone: Start: 12-13-2021 History SDOH Financial 5 [employer] Phone: Start: 12-13-2021 History 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 1 [employer] Phone: Evaluation note Note Date & Type Note Facility Evaluation note Diagnosis Blood in stool, gustavo Blood in stool Gastroesophageal reflux disease without esophagitis Esophageal reflux Diarrhea, unspecified type Abdominal cramping Abdominal pain, unspecified site documented in this encounter [employer] Phone: Assessments Diagnosis Need for varicella vaccine Need for prophylactic vaccination and inoculation against varicella Advance Directives No Advanced Directives Records FoundDocuments on File Type Date Recorded 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 Expl anation Advance Directives and Living Will Power of Sandwich Counter Attendant Documents on File Type Date Recorded 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 Grower Expl anation ACP-Advance Directive ACP-Power of Sandwich Counter Attendant Summary Purpose Family History No Family History Records FoundNo Family History Records Found Additional Source Comments Care Teams (unrecognized sec tion and content) 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 [employer] provides no warranty or guarantee of the accuracy or completeness of information in this document.
[2023-10-25 11:08] VITALS: BP 116/76; PULSE 98
== END 2023-10-25 11:35 | disposition home or self-care (01) ==
LOC: FBCO 07:28 → FBC 10:55
PROVIDERS: Visit Provider Obstetrics & Gynecology
DX: O99.283 Endocrine, nutritional and metabolic diseases complicating pregnancy, third trimester (principal); E05.90 Thyrotoxicosis, unspecified without thyrotoxic crisis or storm; Z3A.35 35 weeks gestation of pregnancy
CPT/HCPCS: 59025

== ENCOUNTER 2023-10-28 07:25 | Outpatient (OUT) | payer BC, OTHER, SELFPAY ==
--- OUTSIDE RECORDS SUMMARY | 2023-10-27 23:50 | XMS_ITS | CCD ---
Author Organization [facility] Care Team Providers Care Tool Liaison Name Role Phone 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 [facility] [...] 05-30-2023 Abs. Basophil 0.01 k/uL Normal 0.00-0.20 [facility] Comment on above: Performed By: #### C DP, CP #### [facility] [address] [place] [address] Licensed Nuclear Control Room Operator: Mike Forde MD Abs.Imm.Granulocyte 0.01 k/uL Normal 0.00-0.30 [facility] Comment on above: Performed By: #### C DP, CP #### [facility] [address] [place] [address] Licensed Nuclear Control Room Operator: Mike Forde MD Abs.Neutrophil (Seg) 6.24 k/uL Normal 2.5-7.0 [facility] Comment on above: Performed By: #### C DP, CP #### [facility] [address] [place] [address] Licensed Nuclear Control Room Operator: Mike Forde MD Basophils/100 WBC (Bld) 0 % Normal 0-2 [facility] Comment on above: Performed By: #### C DP, CP #### [facility] [address] [place] [address] Licensed Nuclear Control Room Operator: Mike Forde MD Eosinophils (Bld) [#/Vol] 0.00 10*3/uL Normal 0.00-0.40 [facility] Comment on above: Performed By: #### C DP, CP #### [facility] [address] [place] [address] Licensed Nuclear Control Room Operator: Mike Forde MD Eosinophils/100 WBC (Bld) 0 % Normal 0-5 [facility] Comment on above: Performed By: #### C DP, CP #### [facility] [address] [place] [address] Licensed Nuclear Control Room Operator: Mike Forde MD Erythrocyte distribution width (RBC) [Ratio] 11.9 % Low 12.1-15.2 [facility] Comment on above: Performed By: #### C DP, CP #### [facility] [address] [place] [address] Licensed Nuclear Control Room Operator: Mike Forde MD Hematocrit (Bld) [Volume fraction] 41.1 % Normal 36.0-46.0 [facility] Comment on above: Performed By: #### C DP, CP #### [facility] [address] [place] [address] Licensed Nuclear Control Room Operator: Mike Forde MD Hemoglobin (Bld) [Mass/Vol] 14.5 g/dL Normal 12.0-16.0 [facility] Comment on above: Performed By: #### C DP, CP #### [facility] [address] [place] [address] Licensed Nuclear Control Room Operator: Mike Forde MD Immature granulocytes/100 WBC (Bld) 0 % Normal 0-5 [facility] Comment on above: Performed By: #### C DP, CP #### [facility] [address] [place] [id number] Licensed Nuclear Control Room Operator: Mike Forde MD Lymphocytes (Bld) [#/Vol] 1.74 10*3/uL Normal 1.00-4.80 [facility] Comment on above: Performed By: #### C DP, CP #### [facility] [address] [place] [address] Licensed Nuclear Control Room Operator: Mike Forde MD Lymphocytes/100 WBC (Bld) 21 % Normal 15-40 [facility] Comment on above: Performed By: #### C DP, CP #### [facility] [address] [place] [address] Licensed Nuclear Control Room Operator: Mike Forde MD MCH (RBC) [Entitic mass] 29.2 pg Normal 26.0-34.0 [facility] Comment on above: Performed By: #### C DP, CP #### [facility] [address] [place] [address] Licensed Nuclear Control Room Operator: Mike Forde MD MCHC (RBC) [Mass/Vol] 35.3 g/dL Normal 31.0-37.0 [facility] Comment on above: Performed By: #### C DP, CP #### [facility] [address] [place] [address] Licensed Nuclear Control Room Operator: Mike Forde MD MCV (RBC) [Entitic vol] 82.9 fL Normal 80.0-100.0 [facility] Comment on above: Performed By: #### C DP, CP #### [facility] [address] [place] [address] Licensed Nuclear Control Room Operator: Mike Forde MD Monocytes (Bld) [#/Vol] 0.50 10*3/uL Normal 0.00-1.00 [facility] Comment on above: Performed By: #### C DP, CP #### [facility] [address] [place] [address] Licensed Nuclear Control Room Operator: Mike Forde MD Monocytes/100 WBC (Bld) 6 % Normal 4-8 [facility] Comment on above: Performed By: #### C DP, CP #### [facility] [address] [place] [address] Licensed Nuclear Control Room Operator: Mike Forde MD Neutrophil (Seg) 73 % Normal 47-75 [facility] Comment on above: Performed By: #### C DP, CP #### [facility] [address] [place] [address] Licensed Nuclear Control Room Operator: Mike Forde MD Platelet mean volume (Bld) [Entitic vol] 10.4 fL Normal 6.0-12.0 [facility] Comment on above: Performed By: #### C DP, CP #### [facility] [address] [place], [place] [phone] Licensed Nuclear Control Room Operator: Mike Forde MD Platelets (Bld) [#/Vol] 227 10*3/uL Normal 140-450 [facility] Comment on above: Performed By: #### C DP, CP #### [facility] [address] [place], [place] [phone] Licensed Nuclear Control Room Operator: Mike Forde MD RBC (Bld) [#/Vol] 4.96 10*6/uL Normal 4.00-5.20 [facility] Comment on above: Performed By: #### C DP, CP #### [facility] [address] [place], [place] [phone] Licensed Nuclear Control Room Operator: Mike Forde MD WBC (Bld) [#/Vol] 8.5 10*3/uL Normal 3.5-11.0 [facility] Comment on above: Performed By: #### C DP, CP #### [facility] [address] [place], [place] [phone] Licensed Nuclear Control Room Operator: Mike Forde MD Comp Metabolic Profon 2022 Albumin [Mass/Vol] 4.2 g/dL Normal 3.5-5.2 [facility] Comment on above: Performed By: #### C DP, CP #### [facility] [address] [place], [place] [phone] Licensed Nuclear Control Room Operator: Mike Forde MD Alkaline Phos 48 U/L Normal 35-104 [facility] Comment on above: Performed By: #### C DP, CP #### [facility] [address] [place], [place] [phone] Licensed Nuclear Control Room Operator: Mike Forde MD ALT [Catalytic activity/Vol] 12 U/L Normal 5-33 [facility] Comment on above: Performed By: #### C DP, CP #### [facility] [address] [place] [address] Licensed Nuclear Control Room Operator: Mike Forde MD Anion gap [Moles/Vol] 15 mmol/L Normal 9-17 [facility] Comment on above: Performed By: #### C DP, CP #### [facility] [address] [place] [address] Licensed Nuclear Control Room Operator: Mike Forde MD AST [Catalytic activity/Vol] 11 U/L Normal <32 [facility] Comment on above: Performed By: #### C DP, CP #### [facility] [address] [place] [address] Licensed Nuclear Control Room Operator: Mike Forde MD Bilirubin [Mass/Vol] mg/dL Low 0.3-1.2 [facility] Comment on above: Performed By: #### C DP, CP #### [facility] [address] [place] [address] Licensed Nuclear Control Room Operator: Mike Forde MD BUN/CRE Ratio 14 Normal 9-20 [facility] Comment on above: Performed By: #### C DP, CP #### [facility] [address] [place] [address] Licensed Nuclear Control Room Operator: Mike Forde MD Calcium [Mass/Vol] 9.7 mg/dL Normal 8.6-10.4 [facility] Comment on above: Performed By: #### C DP, CP #### [facility] [address] [place] [address] Licensed Nuclear Control Room Operator: Mike Forde MD Chloride [Moles/Vol] 101 mmol/L Normal 98-107 [facility] Comment on above: Performed By: #### C DP, CP #### [facility] [address] [place], [place] [id number] Licensed Nuclear Control Room Operator: Mike Forde MD CO2 [Moles/Vol] 22 mmol/L Normal 20-31 [facility] Comment on above: Performed By: #### C DP, CP #### [facility] [address] [place], [place] [phone] Licensed Nuclear Control Room Operator: Mike Forde MD Creatinine [Mass/Vol] 0.5 mg/dL Normal 0.5-0.9 [facility] Comment on above: Performed By: #### C DP, CP #### [facility] [address] [place], [place] [phone] Licensed Nuclear Control Room Operator: Mike Forde MD GFR/1.73 sq M.predicted among non-blacks MDRD (S/P/Bld) [Vol rate/Area] mL/min/{1.73_m2} Normal >60 [facility] Comment on above: Result Comment: [...] #### C DP, CP #### [facility] [address] [place] [place], [place] [phone] Licensed Nuclear Control Room Operator: Mike Forde MD Glucose [Mass/Vol] 90 mg/dL Normal 70-99 [facility] Comment on above: Performed By: #### C DP, CP #### [facility] [address] [place] [address] Licensed Nuclear Control Room Operator: Mike Forde MD Potassium [Moles/Vol] 3.5 mmol/L Low 3.7-5.3 [facility] Comment on above: Performed By: #### C DP, CP #### [facility] [address] [facility] [place] [address] Licensed Nuclear Control Room Operator: Mike Forde MD Protein [Mass/Vol] 7.5 g/dL Normal 6.4-8.3 [facility] Comment on above: Performed By: #### C DP, CP #### [facility] [address] [place], [place] [phone] Licensed Nuclear Control Room Operator: Mike Forde MD Sodium [Moles/Vol] 138 mmol/L Normal 135-144 [facility] Comment on above: Performed By: #### C DP, CP #### [facility] [address] [place], [place] [phone] Licensed Nuclear Control Room Operator: Mike Forde MD Urea nitrogen [Mass/Vol] 7 mg/dL Normal 6-20 [facility] Comment on above: Performed By: #### C DP, CP #### [facility] [address] [place], [place] [phone] Licensed Nuclear Control Room Operator: Mike Forde MD Basic Metabolic Profon 04-16 Anion gap [Moles/Vol] 15 mmol/L Normal 9-17 [facility] Comment on above: Performed By: #### C DP, BMP #### [facility] [address] [place], [place] [phone] Licensed Nuclear Control Room Operator: Mike Forde MD BUN/CRE Ratio 10 Normal 9-20 [facility] Comment on above: Performed By: #### C DP, BMP #### [facility] [address] [place], [place] [phone] Licensed Nuclear Control Room Operator: Mike Forde MD Calcium [Mass/Vol] 10.2 mg/dL Normal 8.6-10.4 [facility] Comment on above: Performed By: #### C DP, BMP #### [facility] [address] [place], [place] [phone] Licensed Nuclear Control Room Operator: Mike Forde MD Chloride [Moles/Vol] 98 mmol/L Normal 98-107 [facility] Comment on above: Performed By: #### C DP, BMP #### [facility] [address] [place], [place] [phone] Licensed Nuclear Control Room Operator: Mike Forde MD CO2 [Moles/Vol] 22 mmol/L Normal 20-31 [facility] Comment on above: Performed By: #### C DP, BMP #### [facility] [address] [place] [address] Licensed Nuclear Control Room Operator: Mike Forde MD Creatinine [Mass/Vol] 0.7 mg/dL Normal 0.5-0.9 [facility] Comment on above: Performed By: #### C DP, BMP #### [facility] [address] [place] [address] Licensed Nuclear Control Room Operator: Mike Forde MD GFR/1.73 sq M.predicted among non-blacks MDRD (S/P/Bld) [Vol rate/Area] mL/min/{1.73_m2} Normal >60 [facility] Comment on above: Result Comment: [...] #### C DP, BMP #### [facility] [address] [place] [address] Licensed Nuclear Control Room Operator: Mike Forde MD Glucose [Mass/Vol] 113 mg/dL High 70-99 [facility] Comment on above: Performed By: #### C DP, BMP #### [facility] [address] [place], [place] [phone] Licensed Nuclear Control Room Operator: Mike Forde MD Potassium [Moles/Vol] 3.4 mmol/L Low 3.7-5.3 [facility] Comment on above: Performed By: #### C DP, BMP #### [facility] [address] [place], [place] [phone] Licensed Nuclear Control Room Operator: Mike Forde MD Sodium [Moles/Vol] 135 mmol/L Normal 135-144 [facility] Comment on above: Performed By: #### C DP, BMP #### [facility] [address] [place], [place] [phone] Licensed Nuclear Control Room Operator: Mike Forde MD Urea nitrogen [Mass/Vol] 7 mg/dL Normal 6-20 [facility] Comment on above: Performed By: #### C DP, BMP #### [facility] [address] [place] [address] Licensed Nuclear Control Room Operator: Mike Forde MD CBC with Diffon 04-16-2023 Abs. Basophil 0.03 k/uL Normal 0.00-0.20 [facility] Comment on above: Performed By: #### C DP, BMP #### [facility] [address] [place], [place] [phone] Licensed Nuclear Control Room Operator: Mike Forde MD Abs.Imm.Granulocyte 0.02 k/uL Normal 0.00-0.30 [facility] Comment on above: Performed By: #### C DP, BMP #### [facility] [address] [place], [place] [phone] Licensed Nuclear Control Room Operator: Mike Forde MD Abs.Neutrophil (Seg) 7.51 k/uL High 2.5-7.0 [facility] Comment on above: Performed By: #### C DP, BMP #### [facility] [address] [place] [address] Licensed Nuclear Control Room Operator: Mike Forde MD Basophils/100 WBC (Bld) 0 % Normal 0-2 [facility] Comment on above: Performed By: #### C DP, BMP #### [facility] [address] [place] [phone] Licensed Nuclear Control Room Operator: Mike Forde MD Eosinophils (Bld) [#/Vol] 0.03 10*3/uL Normal 0.00-0.40 [facility] Comment on above: Performed By: #### C DP, BMP #### [facility] [address] [place], [place] [phone] Licensed Nuclear Control Room Operator: Mike Forde MD Eosinophils/100 WBC (Bld) 0 % Normal 0-5 [facility] Comment on above: Performed By: #### C DP, BMP #### [facility] [address] [place] [address] Licensed Nuclear Control Room Operator: Mike Forde MD Erythrocyte distribution width (RBC) [Ratio] 11.8 % Low 12.1-15.2 [facility] Comment on above: Performed By: #### C DP, BMP #### [facility] [address] [place], [place] [phone] Licensed Nuclear Control Room Operator: Mike Forde MD Hematocrit (Bld) [Volume fraction] 43.4 % Normal 36.0-46.0 [facility] Comment on above: Performed By: #### C DP, BMP #### [facility] [address] [place], [place] [phone] Licensed Nuclear Control Room Operator: Mike Forde MD Hemoglobin (Bld) [Mass/Vol] 15.5 g/dL Normal 12.0-16.0 [facility] Comment on above: Performed By: #### C DP, BMP #### [facility] [address] [place] [address] Licensed Nuclear Control Room Operator: Mike Forde MD Immature granulocytes/100 WBC (Bld) 0 % Normal 0-5 [facility] Comment on above: Performed By: #### C DP, BMP #### [facility] [address] [place], [place] [phone] Licensed Nuclear Control Room Operator: Mike Forde MD Lymphocytes (Bld) [#/Vol] 2.33 10*3/uL Normal 1.00-4.80 [facility] Comment on above: Performed By: #### C DP, BMP #### [facility] [address] [place] [address] Licensed Nuclear Control Room Operator: Mike Forde MD Lymphocytes/100 WBC (Bld) 22 % Normal 15-40 [facility] Comment on above: Performed By: #### C DP, BMP #### [facility] [address] [place] [address] Licensed Nuclear Control Room Operator: Mike Forde MD MCH (RBC) [Entitic mass] 28.9 pg Normal 26.0-34.0 [facility] Comment on above: Performed By: #### C DP, BMP #### [facility] [address] [place] [address] Licensed Nuclear Control Room Operator: Mike Forde MD MCHC (RBC) [Mass/Vol] 35.7 g/dL Normal 31.0-37.0 [facility] Comment on above: Performed By: #### C DP, BMP #### [facility] [address] [place] [address] Licensed Nuclear Control Room Operator: Mike Forde MD MCV (RBC) [Entitic vol] 80.8 fL Normal 80.0-100.0 [facility] Comment on above: Performed By: #### C DP, BMP #### [facility] [address] [place] [address] Licensed Nuclear Control Room Operator: Mike Forde MD Monocytes (Bld) [#/Vol] 0.88 10*3/uL Normal 0.00-1.00 [facility] Comment on above: Performed By: #### C DP, BMP #### [facility] [address] [place] [address] Licensed Nuclear Control Room Operator: Mike Forde MD Monocytes/100 WBC (Bld) 8 % Normal 4-8 [facility] Comment on above: Performed By: #### C DP, BMP #### [facility] [address] [place], [place] [phone] ([phone] Licensed Nuclear Control Room Operator: Mike Forde MD Neutrophil (Seg) 70 % Normal 47-75 [facility] Comment on above: Performed By: #### C DP, BMP #### [facility] [address] [place] [address] ([phone]) Licensed Nuclear Control Room Operator: Mike Forde MD Platelet mean volume (Bld) [Entitic vol] 10.5 fL Normal 6.0-12.0 [facility] Comment on above: Performed By: #### C DP, BMP #### [facility] [address] [place] [address] ([phone]) Licensed Nuclear Control Room Operator: Mike Forde MD Platelets (Bld) [#/Vol] 279 10*3/uL Normal 140-450 [facility] Comment on above: Performed By: #### C DP, BMP #### [facility] [address] [place] [address] ([phone]) Licensed Nuclear Control Room Operator: Mike Forde MD RBC (Bld) [#/Vol] 5.37 10*6/uL High 4.00-5.20 [facility] Comment on above: Performed By: #### C DP, BMP #### [facility] [address] [place] [address] ([phone]) Licensed Nuclear Control Room Operator: Mike Forde MD WBC (Bld) [#/Vol] 10.8 10*3/uL Normal 3.5-11.0 [facility] Comment on above: Performed By: #### C DP, BMP #### [facility] [address] [place] [address] ([phone]) Licensed Nuclear Control Room Operator: Mike Forde MD CBC with Auto Differentialon 12-13-2021 Absolute Eos # 0.00 [facility] Absolute Lymph # 1.90 [facility] Absolute Dauphin # 0.50 [facility] Basophils (Bld) [#/Vol] 0.00 10*3/uL [facility] Basophils/100 WBC (Bld) 0 % 0 - 2 % [facility] Differential Type YES [facility] Eosinophils/100 WBC (Bld) 0 % 0 - [...] g/dL 31 - 37 g/dL [facility] MCV (RBC) [Entitic vol] 86.2 fL 80 - 100 fL [facility] Monocytes/100 WBC (Bld) 5 % 4 - 8 % [facility] Platelet distribution width (Bld) [Ratio] 12.3 % 12.1 - 15.2 % [facility] Platelets (Bld) [#/Vol] 265 10*3/uL [facility] RBC (Bld) [#/Vol] 5.05 10*6/uL 4.0 - 5.2 m/uL [facility] Segmented neutrophils/100 WBC (Bld) 74 % 47 - 75 % [facility] Segs Absolute 6.60 [facility] WBC (Bld) [#/Vol] 9.1 10*3/uL [facility] Comprehensive Metabolic Pane davi 12-13-2021 Albumin [Mass/Vol] 4.3 g/dL 3.5 - 5.2 g/dL [facility] ALP (Bld) [Catalytic activity/Vol] 77 U/L [...] [Moles/Vol] 25 mmol/L 20 - 31 mmol/L [facility] Creatinine [Mass/Vol] 0.77 mg/dL 0.50 - 0.90 [...] body mass. Additional eGFR calculator available at: http://www.[employer]/multiple_crcl_2012.htm Glucose [Mass/Vol] 93 mg/dL 70 - 99 mg/dL [facility] Potassium [Moles/Vol] 4.2 mmol/L 3.7 - 5.3 mmol /L [facility] Sodium [Moles/Vol] 138 mmol/L 135 - 144 mmol/L [facility] Urea nitrogen (BldV) [Mass/Vol] 9 mg/dL 6 - 20 mg/dL [facility] Urea nitrogen/Creatinine (Bld) [Mass ratio] 12 [facility] Encounters Encounter Date Encounter Type Care [...] department patient visit TERRENCE WOLF [facility] Start: 04-16-2023 End: 04-17-2023 [facility] Start: 12-13-2021 End: 12-13-2021 Subsequent hospital visit by physician Arpit Leblanc CNP Work Phone: [facility] Comment on above: Blood in stool, zeina k; Gastroesophageal reflux disease without esophagitis; Diarrhea, unspecified type; Abdominal cramping Start: 03-01-2019 End: 03-01-2019 Subsequent hospital visit by physician 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 [facility] Laboratory Comment on above: Need for varicella v accine Procedures Date Procedure Procedure Detail Performing Clinician Start: 12-13-2021 Comprehensive metabo lic panel Arpit Leblanc CNP Work Phone: Plan of Treatment Date Care Activity Detail Author Start: 11-26-2029 DTaP/Tdap/Td vaccine (3 - Td or Tdap) DTaP/Tdap/Td vaccine (3 - Td or Tdap) [facility] Start: 12-13-2022 Depression Screen Depression Screen [facility] Start: 03-14-2022 COVID-19 Vaccine (3 - Booster for Pfizer series) COVID-19 Vaccine (3 - Booster for Pfizer series) [facility] [employer] [facility] Start: 03-10-2022 Influenza vaccination Flu vaccine (S angelo Ended) [facility] Start: 01-11-2022 End: 01-11-2022 Patient encounter procedure 01/11/2022 Office Visit Family Medicine 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, [facility] [employer] - [employer]ULT[employer] [address] [place] [address] [facility] Start: 2019 Screening for malign ant neoplasm of cervix Pap smear [facility] Start: 03-10-2019 Influenza vaccination Flu vaccine (# 1) [place], [place] Start: 2017 DTaP/Tdap/Td vaccine (1 - Tdap) DTaP/Tdap/Td vaccine (1 - Tdap) [place], [place] Start: 2016 Hepatitis C screening Hepatitis C sc reen [facility] Start: 2014 Chlamydia screen Chlamydia screen [place], [place] Start: 2014 Screening for Chlamy nathalie trachomatis Chlamydia screen [facility] Start: 2013 HIV screen HIV screen [place], [place] Start: 2013 HIV screening HIV screen [facility] Start: 2013 HPV vaccine (1 - Fem dana 3-dose series) HPV vaccine (1 - Female 3-dose series) [place], [place] Start: 2011 Varicella Vaccine (1 of 2 - 13+ 2-dose series) Varicella Vaccine (1 of 2 - 13+ 2-dose series) [place], [place] Start: 2009 HPV vaccine (1 - [...] cramping 1 Occurrences starting 12/13/2021 until 12/13/2021 [facility] Phone: Comment on above: 1 Occurrences starti ng 12/13/2021 until 12/13/2021 End: 12-13-2021 Celiac Plus [facility] Phone: Comment on above: Once for 1 Occurrenc es starting 12/13/2021 until 12/13/2021 End: 12-13-2021 Comprehensive metabolic 2000 panel - Serum or Plasma Comprehensive Metabolic Panel Lab Routine Blood in stool, gustavo Gastroesophageal reflux disease without esophagitis 1 Occurrences starting 12/13/2021 until 12/13/2021 [employer] Phone: Comment on above: 1 Occurrences starti ng 12/13/2021 until 12/13/2021 End: 03-01-2019 Varicella Zoster Antibody, IgG Varicella Zoster Antibody, IgG Lab Routine Need for varicella vaccine 1 Occurrences starting 03/01/2019 until 03/01/2019 [place], [place] Comment on above: 1 Occurrences starti ng 03/01/2019 until 03/01/2019 Varicella Zoster Antibody, IgG Varicella Zoster Antibody, IgG Lab Routine Need for varicella vaccine 03/01/2019 11:50 AM EDT [place], [place] Immunizations Immunization Date Immunization Notes Care Provider Rohit mcnally 09-18-2021 COVID-19, Pfizer Pur ple top, DILUTE for use, 12+ yrs, 30mcg/0.3mL dose 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 APRN - EXCELLENCE CONSULTANT Work Phone: [facility] [employer] Work Phone: 11-27-2019 Hepatitis B vaccine (recombinant), CpG adjuvanted 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 APRN - EXCELLENCE CONSULTANT Work Phone: [facility] [employer] Work Phone: 11-27-2019 tetanus toxoid, redu gordon diphtheria toxoid, and acellular pertussis vaccine, adsorbed 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 FAITH DOCTOR - EXCELLENCE CONSULTANT Work Phone: [employer] Work Phone: 03-27-2019 hepatitis B vaccine, adult dosage 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 APRN - [facility] Work Phone: [facility] [employer] Work Phone: 03-27-2019 measles, mumps and rubella virus vaccine 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 FAITH DOCTOR - [facility] Work Phone: [employer] Work Phone: 03-03-2019 measles, mumps and rubella virus vaccine 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 FAITH DOCTOR - EXCELLENCE CONSULTANT Work Phone: [employer] Work Phone: 02-25-2019 hepatitis B vaccine, adult dosage 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 [facility] [employer] Payers Date Payer Category Payer Unknown [id number] 2022 Private Health Insurance [id number] 2018 Unknown BCBS [place] - [place] P PO xxxxxxxxxxxx 2018-Present [address] [place] [address] xxxxxxxxxxxx [id number] 2018 Unknown [id number] 1998 Unknown [id number] .174 1998 Unknown [id number] .174 1998 Unknown [id number] [id number] .1259 1998 Unknown [id number] [id number] .1259 1998 Unknown [id number] [id number] .1259 1998 Unknown [id number] [id number] .1259 1998 Unknown [id number] [id number] .1259 1998 Unknown [id number] [id number] .1259 1998 Unknown [id number] .1259 Social History Date Type Detail Facility Start: 04-25-2016 End: 11-26-2018 Tobacco smoking status NHIS Never smoker [place], [place] Start: 11-26-2018 [facility] [place] [place] Start: 1998 Sex Assigned At Not on file [place], [place] Start: 04-25-2016 Tobacco use and exposure Smokeless tobacco non-user [employer] Phone: Start: 12-13-2021 Alcohol intake 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) [employer] Phone: Start: 12-13-2021 History SDOH Financial 5 [employer] Phone: Start: 12-13-2021 History 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 1 [employer] Phone: Evaluation note Note Date & Type Note Facility Evaluation note Diagnosis Blood in stool, gustavo Blood in stool Gastroesophageal reflux disease without esophagitis Esophageal reflux Diarrhea, unspecified type Abdominal cramping Abdominal pain, unspecified site documented in this encounter [employer] Phone: Assessments Diagnosis Need for varicella vaccine Need for prophylactic vaccination and inoculation against varicella Advance Directives No Advanced Directives Records FoundDocuments on File Type Date Recorded Patient Tax Examiner Expl anation Advance Directives and Living Will Power of Counter Cutter Documents on File Type Date Recorded Patient Tax Examiner Expl anation ACP-Advance Directive ACP-Power of Counter Cutter Summary Purpose Family History No Family History Records FoundNo Family History Records Found Additional Source Comments Care Teams (unrecognized sec tion and content) Tool Liaison Relationship Specialty Start Date End Date 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, FAITH DOCTOR - EXCELLENCE CONSULTANT [address] [place] [address] PCP - General Nurse Practitioner 11/23/16 INFORMATION SOURCE (unrecogn ized section and content) DATE CREATED AUTHOR 06/02/2023 [facility] DATE CREATED AUTHOR AUTHOR'S CHARLIE ATJUDD 10/23/2023 [facility] FOR RECORDS PERTAINING TO PATIENTS [...] BE BASED ON THE PRIMARY CLINICAL RECORDS. [employer] provides no warranty or guarantee of the accuracy or completeness of information in this document.
--- OUTSIDE RECORDS SUMMARY | 2023-10-28 07:50 | XMS_ITS | CCD ---
Author Organization [facility] Care Team Providers Care Deodorizer Operator Name Role Phone 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 Primary [...] 05-30-2023 Abs. Basophil 0.01 k/uL Normal 0.00-0.20 [facility] Comment on above: Performed By: #### C DP, CP #### [facility] [address] [place] [address] Deck Engineer: Mike Forde MD Abs.Imm.Granulocyte 0.01 k/uL Normal 0.00-0.30 [facility] Comment on above: Performed By: #### C DP, CP #### [facility] [address] [place] [address] Deck Engineer: Mike Forde MD Abs.Neutrophil (Seg) 6.24 k/uL Normal 2.5-7.0 [facility] Comment on above: Performed By: #### C DP, CP #### [facility] [address] [place] [address] Deck Engineer: Mike Forde MD Basophils/100 WBC (Bld) 0 % Normal 0-2 [facility] Comment on above: Performed By: #### C DP, CP #### [facility] [address] [place] [address] Deck Engineer: Mike Forde MD Eosinophils (Bld) [#/Vol] 0.00 10*3/uL Normal 0.00-0.40 [facility] Comment on above: Performed By: #### C DP, CP #### [facility] [address] [place] [address] Deck Engineer: Mike Forde MD Eosinophils/100 WBC (Bld) 0 % Normal 0-5 [facility] Comment on above: Performed By: #### C DP, CP #### [facility] [address] [place] [address] Deck Engineer: Mike Forde MD Erythrocyte distribution width (RBC) [Ratio] 11.9 % Low 12.1-15.2 [facility] Comment on above: Performed By: #### C DP, CP #### [facility] [address] [place] [address] Deck Engineer: Mike Forde MD Hematocrit (Bld) [Volume fraction] 41.1 % Normal 36.0-46.0 [facility] Comment on above: Performed By: #### C DP, CP #### [facility] [address] [place] [address] Deck Engineer: Mike Forde MD Hemoglobin (Bld) [Mass/Vol] 14.5 g/dL Normal 12.0-16.0 [facility] Comment on above: Performed By: #### C DP, CP #### [facility] [address] [place] [address] Deck Engineer: Mike Forde MD Immature granulocytes/100 WBC (Bld) 0 % Normal 0-5 [facility] Comment on above: Performed By: #### C DP, CP #### [facility] [address] [place] [id number] Deck Engineer: Mike Forde MD Lymphocytes (Bld) [#/Vol] 1.74 10*3/uL Normal 1.00-4.80 [facility] Comment on above: Performed By: #### C DP, CP #### [facility] [address] [place] [address] Deck Engineer: Mike Forde MD Lymphocytes/100 WBC (Bld) 21 % Normal 15-40 [facility] Comment on above: Performed By: #### C DP, CP #### [facility] [address] [place] [address] Deck Engineer: Mike Forde MD MCH (RBC) [Entitic mass] 29.2 pg Normal 26.0-34.0 [facility] Comment on above: Performed By: #### C DP, CP #### [facility] [address] [place] [address] Deck Engineer: Mike Forde MD MCHC (RBC) [Mass/Vol] 35.3 g/dL Normal 31.0-37.0 [facility] Comment on above: Performed By: #### C DP, CP #### [facility] [address] [place] [address] Deck Engineer: Mike Forde MD MCV (RBC) [Entitic vol] 82.9 fL Normal 80.0-100.0 [facility] Comment on above: Performed By: #### C DP, CP #### [facility] [address] [place] [address] Deck Engineer: Mike Forde MD Monocytes (Bld) [#/Vol] 0.50 10*3/uL Normal 0.00-1.00 [facility] Comment on above: Performed By: #### C DP, CP #### [facility] [address] [place] [address] Deck Engineer: Mike Forde MD Monocytes/100 WBC (Bld) 6 % Normal 4-8 [facility] Comment on above: Performed By: #### C DP, CP #### [facility] [address] [place] [address] Deck Engineer: Mike Forde MD Neutrophil (Seg) 73 % Normal 47-75 [facility] Comment on above: Performed By: #### C DP, CP #### [facility] [address] [place] [address] Deck Engineer: Mike Forde MD Platelet mean volume (Bld) [Entitic vol] 10.4 fL Normal 6.0-12.0 [facility] Comment on above: Performed By: #### C DP, CP #### [facility] [address] [place], [place] [id number] Deck Engineer: Mike Forde MD Platelets (Bld) [#/Vol] 227 10*3/uL Normal 140-450 [facility] Comment on above: Performed By: #### C DP, CP #### [facility] [address] [place], [place] [id number] Deck Engineer: Mike Forde MD RBC (Bld) [#/Vol] 4.96 10*6/uL Normal 4.00-5.20 [facility] Comment on above: Performed By: #### C DP, CP #### [facility] [address] [place], [place] [phone] Deck Engineer: Mike Forde MD WBC (Bld) [#/Vol] 8.5 10*3/uL Normal 3.5-11.0 [facility] Comment on above: Performed By: #### C DP, CP #### [facility] [address] [place], [place] [id number] Deck Engineer: Mike Forde MD Comp Metabolic Profon 2022 Albumin [Mass/Vol] 4.2 g/dL Normal 3.5-5.2 [facility] Comment on above: Performed By: #### C DP, CP #### [facility] [address] [place], [place] [id number] Deck Engineer: Mike Forde MD Alkaline Phos 48 U/L Normal 35-104 [facility] Comment on above: Performed By: #### C DP, CP #### [facility] [address] [place], [place] [id number] Deck Engineer: Mike Forde MD ALT [Catalytic activity/Vol] 12 U/L Normal 5-33 [facility] Comment on above: Performed By: #### C DP, CP #### [facility] [address] [place] [address] Deck Engineer: Mike Forde MD Anion gap [Moles/Vol] 15 mmol/L Normal 9-17 [facility] Comment on above: Performed By: #### C DP, CP #### [facility] [address] [place] [address] Deck Engineer: Mike Forde MD AST [Catalytic activity/Vol] 11 U/L Normal <32 [facility] Comment on above: Performed By: #### C DP, CP #### [facility] [address] [place] [address] Deck Engineer: Mike Forde MD Bilirubin [Mass/Vol] mg/dL Low 0.3-1.2 [facility] Comment on above: Performed By: #### C DP, CP #### [facility] [address] [place] [address] Deck Engineer: Mike Forde MD BUN/CRE Ratio 14 Normal 9-20 [facility] Comment on above: Performed By: #### C DP, CP #### [facility] [address] [place] [address] Deck Engineer: Mike Forde MD Calcium [Mass/Vol] 9.7 mg/dL Normal 8.6-10.4 [facility] Comment on above: Performed By: #### C DP, CP #### [facility] [address] [place] [address] Deck Engineer: Mike Forde MD Chloride [Moles/Vol] 101 mmol/L Normal 98-107 [facility] Comment on above: Performed By: #### C DP, CP #### [facility] [address] [place], [place] [id number] Deck Engineer: Mike Forde MD CO2 [Moles/Vol] 22 mmol/L Normal 20-31 [facility] Comment on above: Performed By: #### C DP, CP #### [facility] [address] [place], [place] [id number] Deck Engineer: Mike Forde MD Creatinine [Mass/Vol] 0.5 mg/dL Normal 0.5-0.9 [facility] Comment on above: Performed By: #### C DP, CP #### [facility] [address] [place], [place] [id number] Deck Engineer: Mike Forde MD GFR/1.73 sq M.predicted among non-blacks MDRD (S/P/Bld) [Vol rate/Area] mL/min/{1.73_m2} Normal >60 [facility] Comment on above: Result Comment: These [...] Performed By: #### C DP, CP #### [facility] [address] [place], [place] [id number] Deck Engineer: Mike Forde MD Glucose [Mass/Vol] 90 mg/dL Normal 70-99 [facility] Comment on above: Performed By: #### C DP, CP #### [facility] [address] [place] [address] Deck Engineer: Mike Forde MD Potassium [Moles/Vol] 3.5 mmol/L Low 3.7-5.3 [facility] Comment on above: Performed By: #### C DP, CP #### [facility] [address] [facility] [place] [address] Deck Engineer: Mike Forde MD Protein [Mass/Vol] 7.5 g/dL Normal 6.4-8.3 [facility] Comment on above: Performed By: #### C DP, CP #### [facility] [address] [place], [place] [id number] Deck Engineer: Mike Forde MD Sodium [Moles/Vol] 138 mmol/L Normal 135-144 [facility] Comment on above: Performed By: #### C DP, CP #### [facility] [address] [place], [place] [id number] Deck Engineer: Mike Forde MD Urea nitrogen [Mass/Vol] 7 mg/dL Normal 6-20 [facility] Comment on above: Performed By: #### C DP, CP #### [facility] [address] [place], [place] 9[address] Deck Engineer: Mike Forde MD Basic Metabolic Profon 04-16 Anion gap [Moles/Vol] 15 mmol/L Normal 9-17 [facility] Comment on above: Performed By: #### C DP, BMP #### [facility] [address] [place], [place] [id number] Deck Engineer: Mike Forde MD BUN/CRE Ratio 10 Normal 9-20 [facility] Comment on above: Performed By: #### C DP, BMP #### [facility] [address] [place], [place] [id number] Deck Engineer: Mike Forde MD Calcium [Mass/Vol] 10.2 mg/dL Normal 8.6-10.4 [facility] Comment on above: Performed By: #### C DP, BMP #### [facility] [address] [place], [place] [id number] Deck Engineer: Mike Forde MD Chloride [Moles/Vol] 98 mmol/L Normal 98-107 [facility] Comment on above: Performed By: #### C DP, BMP #### [facility] [address] [place], [place] [phone] Deck Engineer: Mike Forde MD CO2 [Moles/Vol] 22 mmol/L Normal 20-31 [facility] Comment on above: Performed By: #### C DP, BMP #### [facility] [address] [place] [address] Deck Engineer: Mike Forde MD Creatinine [Mass/Vol] 0.7 mg/dL Normal 0.5-0.9 [facility] Comment on above: Performed By: #### C DP, BMP #### [facility] [address] [place] [address] Deck Engineer: Mike Forde MD GFR/1.73 sq M.predicted among non-blacks MDRD (S/P/Bld) [Vol rate/Area] mL/min/{1.73_m2} Normal >60 [facility] Comment on above: Result Comment: These [...] Performed By: #### C DP, BMP #### [facility] [address] [place] [address] Deck Engineer: Mike Forde MD Glucose [Mass/Vol] 113 mg/dL High 70-99 [facility] Comment on above: Performed By: #### C DP, BMP #### [facility] [address] [place], [place] [id number] Deck Engineer: Mike Forde MD Potassium [Moles/Vol] 3.4 mmol/L Low 3.7-5.3 [facility] Comment on above: Performed By: #### C DP, BMP #### [facility] [address] [place], [place] [id number] Deck Engineer: Mike Forde MD Sodium [Moles/Vol] 135 mmol/L Normal 135-144 [facility] Comment on above: Performed By: #### C DP, BMP #### [facility] [address] [place], [place] [phone] Deck Engineer: Mike Forde MD Urea nitrogen [Mass/Vol] 7 mg/dL Normal 6-20 [facility] Comment on above: Performed By: #### C DP, BMP #### [facility] [address] [place] [address] Deck Engineer: Mike Forde MD CBC with Diffon 04-16-2023 Abs. Basophil 0.03 k/uL Normal 0.00-0.20 [facility] Comment on above: Performed By: #### C DP, BMP #### [facility] [address] [place], [place] [phone] Deck Engineer: Mike Forde MD Abs.Imm.Granulocyte 0.02 k/uL Normal 0.00-0.30 [facility] Comment on above: Performed By: #### C DP, BMP #### [facility] [address] [place], [place] [id number] Deck Engineer: Mike Forde MD Abs.Neutrophil (Seg) 7.51 k/uL High 2.5-7.0 [facility] Comment on above: Performed By: #### C DP, BMP #### [facility] [address] [place] [address] Deck Engineer: Mike Forde MD Basophils/100 WBC (Bld) 0 % Normal 0-2 [facility] Comment on above: Performed By: #### C DP, BMP #### [facility] [address] [place] [id number] Deck Engineer: Mike Forde MD Eosinophils (Bld) [#/Vol] 0.03 10*3/uL Normal 0.00-0.40 [facility] Comment on above: Performed By: #### C DP, BMP #### [facility] [address] [place], [place] [id number] Deck Engineer: Mike Forde MD Eosinophils/100 WBC (Bld) 0 % Normal 0-5 [facility] Comment on above: Performed By: #### C DP, BMP #### [facility] [address] [place] [address] Deck Engineer: Mike Forde MD Erythrocyte distribution width (RBC) [Ratio] 11.8 % Low 12.1-15.2 [facility] Comment on above: Performed By: #### C DP, BMP #### [facility] [address] [place], [place] [phone] Deck Engineer: Mike Forde MD Hematocrit (Bld) [Volume fraction] 43.4 % Normal 36.0-46.0 [facility] Comment on above: Performed By: #### C DP, BMP #### [facility] [address] [place], [place] [phone] Deck Engineer: Mike Forde MD Hemoglobin (Bld) [Mass/Vol] 15.5 g/dL Normal 12.0-16.0 [facility] Comment on above: Performed By: #### C DP, BMP #### [facility] [address] [place] [address] Deck Engineer: Mike Forde MD Immature granulocytes/100 WBC (Bld) 0 % Normal 0-5 [facility] Comment on above: Performed By: #### C DP, BMP #### [facility] [address] [place], [place] [phone] Deck Engineer: Mike Forde MD Lymphocytes (Bld) [#/Vol] 2.33 10*3/uL Normal 1.00-4.80 [facility] Comment on above: Performed By: #### C DP, BMP #### [facility] [address] [place] [address] Deck Engineer: Mike Forde MD Lymphocytes/100 WBC (Bld) 22 % Normal 15-40 [facility] Comment on above: Performed By: #### C DP, BMP #### [facility] [address] [place] [address] Deck Engineer: Mike Forde MD MCH (RBC) [Entitic mass] 28.9 pg Normal 26.0-34.0 [facility] Comment on above: Performed By: #### C DP, BMP #### [facility] [address] [place] [address] Deck Engineer: Mike Forde MD MCHC (RBC) [Mass/Vol] 35.7 g/dL Normal 31.0-37.0 [facility] Comment on above: Performed By: #### C DP, BMP #### [facility] [address] [place] [address] Deck Engineer: Mike Forde MD MCV (RBC) [Entitic vol] 80.8 fL Normal 80.0-100.0 [facility] Comment on above: Performed By: #### C DP, BMP #### [facility] [address] [place] [address] Deck Engineer: Mike Forde MD Monocytes (Bld) [#/Vol] 0.88 10*3/uL Normal 0.00-1.00 [facility] Comment on above: Performed By: #### C DP, BMP #### [facility] [address] [place] [address] Deck Engineer: Mike Forde MD Monocytes/100 WBC (Bld) 8 % Normal 4-8 [facility] Comment on above: Performed By: #### C DP, BMP #### [facility] [address] [place], [place] [phone] (779) Deck Engineer: Mike Forde MD Neutrophil (Seg) 70 % Normal 47-75 [facility] Comment on above: Performed By: #### C DP, BMP #### [facility] [address] [place] [address] (179) Deck Engineer: Mike Forde MD Platelet mean volume (Bld) [Entitic vol] 10.5 fL Normal 6.0-12.0 [facility] Comment on above: Performed By: #### C DP, BMP #### [facility] [address] [place] [address] (324) Deck Engineer: Mike Forde MD Platelets (Bld) [#/Vol] 279 10*3/uL Normal 140-450 [facility] Comment on above: Performed By: #### C DP, BMP #### [facility] [address] [place] [address] (047) Deck Engineer: Mike Forde MD RBC (Bld) [#/Vol] 5.37 10*6/uL High 4.00-5.20 [facility] Comment on above: Performed By: #### C DP, BMP #### [facility] [address] [place] [address] (604) Deck Engineer: Mike Forde MD WBC (Bld) [#/Vol] 10.8 10*3/uL Normal 3.5-11.0 [facility] Comment on above: Performed By: #### C DP, BMP #### [facility] [address] [place] [address] (522) Deck Engineer: Mike Forde MD CBC with Auto Differentialon 12-13-2021 Absolute Eos # 0.00 [facility] Absolute Lymph # 1.90 [facility] Absolute [place] # 0.50 [facility] Basophils (Bld) [#/Vol] 0.00 10*3/uL [facility] Basophils/100 WBC (Bld) 0 % 0 - 2 % [facility] Differential Type YES [facility] Eosinophils/100 [...] g/dL 31 - 37 g/dL [facility] MCV (RBC) [Entitic vol] 86.2 fL [...] 10*6/uL 4.0 - 5.2 m/uL [facility] Segmented neutrophils/100 WBC (Bld) 74 % 47 - 75 % [facility] Segs Absolute 6.60 [facility] WBC (Bld) [#/Vol] 9.1 10*3/uL [facility] Comprehensive Metabolic Pane davi 12-13-2021 Albumin [Mass/Vol] 4.3 g/dL 3.5 - 5.2 g/dL [facility] ALP (Bld) [Catalytic activity/Vol] 77 [...] 25 mmol/L 20 - 31 mmol/L [facility] Creatinine [Mass/Vol] 0.77 mg/dL 0.50 [...] body mass. Additional eGFR calculator available at: http://www.[employer].AquaMost/multiple_crcl_2012.htm Glucose [Mass/Vol] 93 mg/dL 70 - 99 mg/dL [facility] Potassium [Moles/Vol] 4.2 mmol/L 3.7 - 5.3 mmol /L [facility] Sodium [Moles/Vol] 138 mmol/L 135 - 144 mmol/L [facility] Urea nitrogen (BldV) [Mass/Vol] 9 mg/dL 6 - 20 mg/dL [facility] Urea nitrogen/Creatinine (Bld) [Mass ratio] 12 [facility] Encounters Encounter Date Encounter Type [...] 05-31-2023 Emergency department patient visit TERR[facility] WOLF [facility] Start: 04-16-2023 End: 04-17-2023 [facility] Start: 12-13-2021 End: 12-13-2021 Subsequent hospital visit by physician Arpit Leblanc CNP Work Phone: [facility] Comment on above: Blood in stool, zeina k; Gastroesophageal reflux disease without esophagitis; Diarrhea, unspecified type; Abdominal cramping Start: 03-01-2019 End: 03-01-2019 Subsequent hospital visit by physician 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 [facility] Comment on above: Need for varicella v accine Procedures Date Procedure Procedure Detail Performing Clinician Start: 12-13-2021 Comprehensive metabo lic panel Arpit Leblanc CNP Work Phone: Plan of Treatment Date Care Activity Detail Author Start: 11-26-2029 DTaP/Tdap/Td vaccine (3 - Td or Tdap) DTaP/Tdap/Td vaccine (3 - Td or Tdap) [facility] Start: 12-13-2022 Depression Screen Depression Screen [facility] Start: 03-14-2022 COVID-19 Vaccine (3 - Booster for Pfizer series) COVID-19 Vaccine (3 - Booster for Pfizer series) [facility] [employer] [facility] Start: 03-10-2022 Influenza vaccination Flu vaccine (S angelo Ended) [facility] Start: 01-11-2022 End: 01-11-2022 Patient encounter procedure 01/11/2022 Office Visit Family Medicine 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, HOSE FINISHER - HEALTH OUTCOMES LIAISON [address] [place] [address] [facility] Start: 2019 Screening for malign ant neoplasm of cervix Pap smear [facility] Start: 03-10-2019 Influenza vaccination Flu vaccine (# 1) [place], [place] Start: 2017 DTaP/Tdap/Td vaccine (1 - Tdap) DTaP/Tdap/Td vaccine (1 - Tdap) [place] Start: 2016 Hepatitis C screening Hepatitis C sc reen [facility] Start: 2014 Chlamydia screen Chlamydia screen [place], [place] Start: 2014 Screening for Chlamy nathalie trachomatis Chlamydia screen [facility] Start: 2013 HIV screen HIV screen [place], [place] Start: 2013 HIV screening HIV screen [facility] Start: 2013 HPV vaccine (1 - Fem dana 3-dose series) HPV vaccine (1 - Female 3-dose series) [place], [place] Start: 2011 Varicella Vaccine (1 of 2 - 13+ 2-dose series) Varicella Vaccine (1 of 2 - 13+ 2-dose series) [place], [place] Start: 2009 HPV vaccine (1 - [...] cramping 1 Occurrences starting 12/13/2021 until 12/13/2021 [employer] Phone: Comment on above: 1 Occurrences starti ng 12/13/2021 until 12/13/2021 End: 12-13-2021 Celiac Plus [employer] Phone: Comment on above: Once for 1 Occurrenc es starting 12/13/2021 until 12/13/2021 End: 12-13-2021 Comprehensive metabolic 2000 panel - Serum or Plasma Comprehensive Metabolic Panel Lab Routine Blood in stool, gustavo Gastroesophageal reflux disease without esophagitis 1 Occurrences starting 12/13/2021 until 12/13/2021 [employer] Phone: Comment on above: 1 Occurrences starti ng 12/13/2021 until 12/13/2021 End: 03-01-2019 Varicella Zoster Antibody, IgG Varicella Zoster Antibody, IgG Lab Routine Need for varicella vaccine 1 Occurrences starting 03/01/2019 until 03/01/2019 [place], [place] Comment on above: 1 Occurrences starti ng 03/01/2019 until 03/01/2019 Varicella Zoster Antibody, IgG Varicella Zoster Antibody, IgG Lab Routine Need for varicella vaccine 03/01/2019 11:50 AM EDT [place], [place] Immunizations Immunization Date Immunization Notes Care Provider Rohit mcnally 09-18-2021 COVID-19, Pfizer Pur ple top, DILUTE for use, 12+ yrs, 30mcg/0.3mL dose 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 APRN - HEALTH OUTCOMES LIAISON Work Phone: [facility] [employer] Work Phone: 11-27-2019 Hepatitis B vaccine (recombinant), CpG adjuvanted 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 APRN - HEALTH OUTCOMES LIAISON Work Phone: [facility] Work Phone: 11-27-2019 tetanus toxoid, redu gordon diphtheria toxoid, and acellular pertussis vaccine, adsorbed 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 HOSE FINISHER - HEALTH OUTCOMES LIAISON Work Phone: [employer] Work Phone: 03-27-2019 hepatitis B vaccine, adult dosage 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 APRN - [facility] Work Phone: [facility] [place] Work Phone: 03-27-2019 measles, mumps and rubella virus vaccine 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 HOSE FINISHER - [facility] Work Phone: [employer] Work Phone: 03-03-2019 measles, mumps and rubella virus vaccine 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 HOSE FINISHER - HEALTH OUTCOMES LIAISON Work Phone: [employer] Work Phone: 02-25-2019 hepatitis B vaccine, adult dosage 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 [facility] [place] Payers Date Payer Category Payer Unknown [id number] 2022 Private Health Insurance [id number] 2018 Unknown BC[place] P PO xxxxxxxxxxxx 2018-Present [address] [place] [address] xxxxxxxxxxxx [id number] 2018 Unknown [id number] 1998 Unknown [id number] 1998 Unknown [id number] 1998 Unknown [id number] .[id number] 1998 Unknown [id number] .[id number] 1998 Unknown [id number] .[id number] 1998 Unknown [id number] .[id number] 1998 Unknown [id number] .[id number] 1998 Unknown [id number] .[id number] 1998 Unknown [id number] Social History Date Type Detail Facility Start: 04-25-2016 End: 11-26-2018 Tobacco smoking status NHIS Never smoker [place], [place] Start: 11-26-2018 [facility] [place] [place] Start: 1998 Sex Assigned At Not on file [place], [place] Start: 04-25-2016 Tobacco use and exposure Smokeless tobacco non-user [employer] Phone: Start: 12-13-2021 Alcohol intake Current non-dr stand grinder of alcohol (finding) [facility]: Start: 12-13-2021 History SDOH Financial 5 [facility]: Start: 12-13-2021 History 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 1 [facility]: Evaluation note Note Date & Type Note Facility Evaluation note Diagnosis Blood in stool, gustavo Blood in stool Gastroesophageal reflux disease without esophagitis Esophageal reflux Diarrhea, unspecified type Abdominal cramping Abdominal pain, unspecified site documented in this encounter [facility]: Assessments Diagnosis Need for varicella vaccine Need for prophylactic vaccination and inoculation against varicella Advance Directives No Advanced Directives Records FoundDocuments on File Type Date Recorded Patient Telemetry Registered Nurse Expl anation Advance Directives and Living Will Power of Brick Catcher Documents on File Type Date Recorded Patient Telemetry Registered Nurse Expl anation ACP-Advance Directive ACP-Power of Brick Catcher Summary Purpose Family History No Family History Records FoundNo Family History Records Found Additional Source Comments Care Teams (unrecognized sec tion and content) Deodorizer Operator Relationship Specialty Start Date End Date 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, [employer] - [employer] LIAISON [address] [place] [address] PCP - General Nurse Practitioner 11/23/16 INFORMATION SOURCE (unrecogn ized section and content) DATE CREATED AUTHOR 06/02/2023 [facility] DATE CREATED AUTHOR AUTHOR'S CHARLIE ATJUDD 10/23/2023 [facility] FOR RECORDS PERTAINING TO PATIENTS [...] BE BASED ON THE PRIMARY CLINICAL RECORDS. [employer] provides no warranty or guarantee of the accuracy or completeness of information in this document.
--- NOTE | 2023-10-28 08:54 | US_ITS ---
[address] [address] Patient Name: DANIEL ARMENDARIZ MRN: [id number] date: 2000 Sex: F Assigned Patient Location: US Current Patient Location: Accession/Order Number: [id number] Exam Date: 10/28/2023 08:56 Report Date: 10/28/2023 09:43 At the request of: NAHED SALINAS Procedure: US OB BPP w non-stress EXAMINATION: US OB BPP w non-stress HISTORY: Hyperthyroidism COMPARISON: Ultrasound OB biophysical 10/21/2023 TECHNIQUE: Ultrasound biophysical profile was performed in the radiology department. BREATHING MOVEMENTS: 2.0 GROSS BODY MOVEMENTS: 2.0 TONE: 2.0 QUALITATIVE AMNIOTIC FLUID VOLUME: 2.0 PRESENTATION: CEPHALIC HEART RATE: 132.4 bpm bpm. AMNIOTIC FLUID VOLUME: 14.8 cm GESTATIONAL AGE: 36 weeks 0 days CONCLUSION: Total biophysical profile score 8.0. Electronically authenticated by: RAMA BOWMAN Date: 10/28/2023 09:43
[2023-10-28 09:10] VITALS: BP 127/67; PULSE 89
== END 2023-10-28 09:35 | disposition home or self-care (01) ==
LOC: US 07:49 → FBC 08:55
PROVIDERS: Visit Provider Obstetrics & Gynecology
DX: O99.283 Endocrine, nutritional and metabolic diseases complicating pregnancy, third trimester (principal); E05.90 Thyrotoxicosis, unspecified without thyrotoxic crisis or storm; Z3A.36 36 weeks gestation of pregnancy
CPT/HCPCS: 76818

== ENCOUNTER 2023-10-31 21:54 | Outpatient (REF) | payer BC, OTHER, SELFPAY | END 2023-10-31 21:55 | disposition home or self-care (01) | LOC: LAB 21:54 | PROVIDERS: Visit Provider Obstetrics & Gynecology | DX: Z34.93 Encounter for supervision of normal pregnancy, unspecified, third trimester (principal) | CPT/HCPCS: 87081 ==

== ENCOUNTER 2023-11-01 07:05 | Outpatient (OUT) | payer BC, OTHER, SELFPAY ==
--- OUTSIDE RECORDS SUMMARY | 2023-11-01 07:07 | XMS_ITS | CCD ---
Author Organization [facility] Care Team Providers Care Corner Cutter Name Role Phone Arpti Parekh Primary Care Provider TERRENCE WOLF Attending Unavailable ARPIT PAREKH Primary Care Unavailable ARPIT PAREKH Primary Care Unavailable WILLIAM WHITAKER Attending Unavailable ALICIA CLANCY Attending Unavailable RITA, NAHED Attending Unavailable ALICIA CLANCY Attending Unavailable RITA, NAHED Attending Unavailable ALICIA CLANCY Attending Unavailable RITA, NAHED Attending Unavailable RITA, NAHED Attending Unavailable RITA, [...] 05-30-2023 Abs. Basophil 0.01 k/uL Normal 0.00-0.20 [facility] Comment on above: Performed By: #### C DP, CP #### [facility] [address] [place] [address] Product Marketing Manager: Mike Forde MD Abs.Imm.Granulocyte 0.01 k/uL Normal 0.00-0.30 [facility] Comment on above: Performed By: #### C DP, CP #### [facility] [address] [place] [address] Product Marketing Manager: Mike Forde MD Abs.Neutrophil (Seg) 6.24 k/uL Normal 2.5-7.0 [facility] Comment on above: Performed By: #### C DP, CP #### [facility] [address] [place] [address] Product Marketing Manager: Mike Forde MD Basophils/100 WBC (Bld) 0 % Normal 0-2 [facility] Comment on above: Performed By: #### C DP, CP #### [facility] [address] [place] [address] Product Marketing Manager: Mike Forde MD Eosinophils (Bld) [#/Vol] 0.00 10*3/uL Normal 0.00-0.40 [facility] Comment on above: Performed By: #### C DP, CP #### [facility] [address] [place] [phone] Product Marketing Manager: Mike Forde MD Eosinophils/100 WBC (Bld) 0 % Normal 0-5 [facility] Comment on above: Performed By: #### C DP, CP #### [facility] [address] [place], [place] [phone] Product Marketing Manager: Mike Forde MD Erythrocyte distribution width (RBC) [Ratio] 11.9 % Low 12.1-15.2 [facility] Comment on above: Performed By: #### C DP, CP #### [facility] [address] [place] [phone] Product Marketing Manager: Mike Forde MD Hematocrit (Bld) [Volume fraction] 41.1 % Normal 36.0-46.0 [facility] Comment on above: Performed By: #### C DP, CP #### [facility] [address] [place] [address] Product Marketing Manager: Mike Forde MD Hemoglobin (Bld) [Mass/Vol] 14.5 g/dL Normal 12.0-16.0 [facility] Comment on above: Performed By: #### C DP, CP #### [facility] [address] [place] [phone] Product Marketing Manager: Mike Forde MD Immature granulocytes/100 WBC (Bld) 0 % Normal 0-5 [facility] Comment on above: Performed By: #### C DP, CP #### [facility] [address] [place] [phone] Product Marketing Manager: Mike Forde MD Lymphocytes (Bld) [#/Vol] 1.74 10*3/uL Normal 1.00-4.80 [facility] Comment on above: Performed By: #### C DP, CP #### [facility] [address] [place], [place] [phone] Product Marketing Manager: Mike Forde MD Lymphocytes/100 WBC (Bld) 21 % Normal 15-40 [facility] Comment on above: Performed By: #### C DP, CP #### [facility] [address] [place] [address] Product Marketing Manager: Mike Forde MD MCH (RBC) [Entitic mass] 29.2 pg Normal 26.0-34.0 [facility] Comment on above: Performed By: #### C DP, CP #### [facility] [address] [place] [address] Product Marketing Manager: Mike Forde MD MCHC (RBC) [Mass/Vol] 35.3 g/dL Normal 31.0-37.0 [facility] Comment on above: Performed By: #### C DP, CP #### [facility] [address] [place] [address] Product Marketing Manager: Mike Forde MD MCV (RBC) [Entitic vol] 82.9 fL Normal 80.0-100.0 [facility] Comment on above: Performed By: #### C DP, CP #### [facility] [address] [place] [address] Product Marketing Manager: Mike Forde MD Monocytes (Bld) [#/Vol] 0.50 10*3/uL Normal 0.00-1.00 [facility] Comment on above: Performed By: #### C DP, CP #### [facility] [address] [place] [address] Product Marketing Manager: Mike Forde MD Monocytes/100 WBC (Bld) 6 % Normal 4-8 [facility] Comment on above: Performed By: #### C DP, CP #### [facility] [address] [place] [address] Product Marketing Manager: Mike Forde MD Neutrophil (Seg) 73 % Normal 47-75 [facility] Comment on above: Performed By: #### C DP, CP #### [facility] [address] [place] [address] Product Marketing Manager: Mike Forde MD Platelet mean volume (Bld) [Entitic vol] 10.4 fL Normal 6.0-12.0 [facility] Comment on above: Performed By: #### C DP, CP #### [facility] [address] [place], [place] [phone] Product Marketing Manager: Mike Forde MD Platelets (Bld) [#/Vol] 227 10*3/uL Normal 140-450 [facility] Comment on above: Performed By: #### C DP, CP #### [facility] [address] [place], [place] [phone] Product Marketing Manager: Mike Forde MD RBC (Bld) [#/Vol] 4.96 10*6/uL Normal 4.00-5.20 [facility] Comment on above: Performed By: #### C DP, CP #### [facility] [address] [place], [place] [phone] Product Marketing Manager: Mike Forde MD WBC (Bld) [#/Vol] 8.5 10*3/uL Normal 3.5-11.0 [facility] Comment on above: Performed By: #### C DP, CP #### [facility] [address] [place], [place] [phone] Product Marketing Manager: Mike Forde MD Comp Metabolic Profon 2022 Albumin [Mass/Vol] 4.2 g/dL Normal 3.5-5.2 [facility] Comment on above: Performed By: #### C DP, CP #### [facility] [address] [place] [address] Product Marketing Manager: Mike Forde MD Alkaline Phos 48 U/L Normal 35-104 [facility] Comment on above: Performed By: #### C DP, CP #### [facility] [address] [place], [place] [phone] Product Marketing Manager: Mike Forde MD ALT [Catalytic activity/Vol] 12 U/L Normal 5-33 [facility] Comment on above: Performed By: #### C DP, CP #### [facility] [address] [place], [place] [phone] Product Marketing Manager: Mike Forde MD Anion gap [Moles/Vol] 15 mmol/L Normal 9-17 [facility] Comment on above: Performed By: #### C DP, CP #### [facility] [address] [place], [place] [phone] Product Marketing Manager: Mike Forde MD AST [Catalytic activity/Vol] 11 U/L Normal <32 [facility] Comment on above: Performed By: #### C DP, CP #### [facility] [address] [place], [place] [phone] Product Marketing Manager: Mike Forde MD Bilirubin [Mass/Vol] mg/dL Low 0.3-1.2 [facility] Comment on above: Performed By: #### C DP, CP #### [facility] [address] [place], [place] [phone] Product Marketing Manager: Mike Forde MD BUN/CRE Ratio 14 Normal 9-20 [facility] Comment on above: Performed By: #### C DP, CP #### [facility] [address] [place], [place] [phone] Product Marketing Manager: Mike Forde MD Calcium [Mass/Vol] 9.7 mg/dL Normal 8.6-10.4 [facility] Comment on above: Performed By: #### C DP, CP #### [facility] [address] [place], [place] [phone] Product Marketing Manager: Mike Forde MD Chloride [Moles/Vol] 101 mmol/L Normal 98-107 [facility] Comment on above: Performed By: #### C DP, CP #### [facility] [address] [place], [place] [phone] Product Marketing Manager: Mike Forde MD CO2 [Moles/Vol] 22 mmol/L Normal 20-31 [facility] Comment on above: Performed By: #### C DP, CP #### [facility] [address] [place] [address] Product Marketing Manager: Mike Forde MD Creatinine [Mass/Vol] 0.5 mg/dL Normal 0.5-0.9 [facility] Comment on above: Performed By: #### C DP, CP #### [facility] [address] [place] [address] Product Marketing Manager: Mike Forde MD GFR/1.73 sq M.predicted among non-blacks MDRD (S/P/Bld) [Vol rate/Area] mL/min/{1.73_m2} Normal >60 [facility] Comment on above: Result Comment: These results [...] Performed By: #### C DP, CP #### [facility] [address] [place] [address] Product Marketing Manager: Mike Forde MD Glucose [Mass/Vol] 90 mg/dL Normal 70-99 [facility] Comment on above: Performed By: #### C DP, CP #### [facility] [address] [place] [phone] Product Marketing Manager: Mike Forde MD Potassium [Moles/Vol] 3.5 mmol/L Low 3.7-5.3 [facility] Comment on above: Performed By: #### C DP, CP #### [facility] [address] [place], [place] [phone] Product Marketing Manager: Mike Forde MD Protein [Mass/Vol] 7.5 g/dL Normal 6.4-8.3 [facility] Comment on above: Performed By: #### C DP, CP #### [facility] [address] [place], [place] [phone] Product Marketing Manager: Mike Forde MD Sodium [Moles/Vol] 138 mmol/L Normal 135-144 [facility] Comment on above: Performed By: #### C DP, CP #### [facility] [address] [place], [place] [phone] Product Marketing Manager: Mike Forde MD Urea nitrogen [Mass/Vol] 7 mg/dL Normal 6-20 [facility] Comment on above: Performed By: #### C DP, CP #### [facility] [address] [place] [address] Product Marketing Manager: Mike Forde MD Basic Metabolic Profon 04-16 Anion gap [Moles/Vol] 15 mmol/L Normal 9-17 [facility] Comment on above: Performed By: #### C DP, BMP #### [facility] [address] [place], [place] [phone] Product Marketing Manager: Mike Forde MD BUN/CRE Ratio 10 Normal 9-20 [facility] Comment on above: Performed By: #### C DP, BMP #### [facility] [address] [place], [place] [phone] Product Marketing Manager: Mike Forde MD Calcium [Mass/Vol] 10.2 mg/dL Normal 8.6-10.4 [facility] Comment on above: Performed By: #### C DP, BMP #### [facility] [address] [place], [place] [phone] Product Marketing Manager: Mike Forde MD Chloride [Moles/Vol] 98 mmol/L Normal 98-107 [facility] Comment on above: Performed By: #### C DP, BMP #### [facility] [address] [place], [place] [phone] Product Marketing Manager: Mike Forde MD CO2 [Moles/Vol] 22 mmol/L Normal 20-31 [facility] Comment on above: Performed By: #### C DP, BMP #### [facility] [address] [place], [place] [phone] Product Marketing Manager: Mike Forde MD Creatinine [Mass/Vol] 0.7 mg/dL Normal 0.5-0.9 [facility] Comment on above: Performed By: #### C DP, BMP #### [facility] [address] [place] [address] Product Marketing Manager: Mike Forde MD GFR/1.73 sq M.predicted among non-blacks MDRD (S/P/Bld) [Vol rate/Area] mL/min/{1.73_m2} Normal >60 [facility] Comment on above: Result Comment: These results [...] Performed By: #### C DP, BMP #### [facility] [address] [place] [address] Product Marketing Manager: Mike Forde MD Glucose [Mass/Vol] 113 mg/dL High 70-99 [facility] Comment on above: Performed By: #### C DP, BMP #### [facility] [address] [place], [place] [phone] Product Marketing Manager: Mike Forde MD Potassium [Moles/Vol] 3.4 mmol/L Low 3.7-5.3 [facility] Comment on above: Performed By: #### C DP, BMP #### [facility] [address] [place] [address] Product Marketing Manager: Mike Forde MD Sodium [Moles/Vol] 135 mmol/L Normal 135-144 [facility] Comment on above: Performed By: #### C DP, BMP #### [facility] [address] [place] [phone] Product Marketing Manager: Mike Forde MD Urea nitrogen [Mass/Vol] 7 mg/dL Normal 6-20 [facility] Comment on above: Performed By: #### C DP, BMP #### [facility] [address] [place] [address] Product Marketing Manager: Mike Forde MD CBC with Diffon 04-16-2023 Abs. Basophil 0.03 k/uL Normal 0.00-0.20 [facility] Comment on above: Performed By: #### C DP, BMP #### [facility] [address] [place] [phone] Product Marketing Manager: Mike Forde MD Abs.Imm.Granulocyte 0.02 k/uL Normal 0.00-0.30 [facility] Comment on above: Performed By: #### C DP, BMP #### [facility] [address] [place] [phone] Product Marketing Manager: Mike Forde MD Abs.Neutrophil (Seg) 7.51 k/uL High 2.5-7.0 [facility] Comment on above: Performed By: #### C DP, BMP #### [facility] [address] [place] [address] Product Marketing Manager: Mike Forde MD Basophils/100 WBC (Bld) 0 % Normal 0-2 [facility] Comment on above: Performed By: #### C DP, BMP #### [facility] [address] [place] [phone] Product Marketing Manager: Mike Forde MD Eosinophils (Bld) [#/Vol] 0.03 10*3/uL Normal 0.00-0.40 [facility] Comment on above: Performed By: #### C DP, BMP #### [facility] [address] [place], [place] [phone] Product Marketing Manager: Mike Forde MD Eosinophils/100 WBC (Bld) 0 % Normal 0-5 [facility] Comment on above: Performed By: #### C DP, BMP #### [facility] [address] [place] [phone] Product Marketing Manager: Mike Forde MD Erythrocyte distribution width (RBC) [Ratio] 11.8 % Low 12.1-15.2 [facility] Comment on above: Performed By: #### C DP, BMP #### [facility] [address] [place] [phone] Product Marketing Manager: Mike Forde MD Hematocrit (Bld) [Volume fraction] 43.4 % Normal 36.0-46.0 [facility] Comment on above: Performed By: #### C DP, BMP #### [facility] [address] [place] [phone] Product Marketing Manager: Mike Forde MD Hemoglobin (Bld) [Mass/Vol] 15.5 g/dL Normal 12.0-16.0 [facility] Comment on above: Performed By: #### C DP, BMP #### [facility] [address] [place] [address] Product Marketing Manager: Mike Forde MD Immature granulocytes/100 WBC (Bld) 0 % Normal 0-5 [facility] Comment on above: Performed By: #### C DP, BMP #### [facility] [address] [place], [place] [phone] Product Marketing Manager: Mike Forde MD Lymphocytes (Bld) [#/Vol] 2.33 10*3/uL Normal 1.00-4.80 [facility] Comment on above: Performed By: #### C DP, BMP #### [facility] [address] [place] [address] Product Marketing Manager: Mike Forde MD Lymphocytes/100 WBC (Bld) 22 % Normal 15-40 [facility] Comment on above: Performed By: #### C DP, BMP #### [facility] [address] [place] [address] Product Marketing Manager: Mike Forde MD MCH (RBC) [Entitic mass] 28.9 pg Normal 26.0-34.0 [facility] Comment on above: Performed By: #### C DP, BMP #### [facility] [address] [place] [address] Product Marketing Manager: Mike Forde MD MCHC (RBC) [Mass/Vol] 35.7 g/dL Normal 31.0-37.0 [facility] Comment on above: Performed By: #### C DP, BMP #### [facility] [address] [place] [address] Product Marketing Manager: Mike Forde MD MCV (RBC) [Entitic vol] 80.8 fL Normal 80.0-100.0 [facility] Comment on above: Performed By: #### C DP, BMP #### [facility] [address] [place] [phone] Product Marketing Manager: Mike Forde MD Monocytes (Bld) [#/Vol] 0.88 10*3/uL Normal 0.00-1.00 [facility] Comment on above: Performed By: #### C DP, BMP #### [facility] [address] [place] [address] Product Marketing Manager: Mike Forde MD Monocytes/100 WBC (Bld) 8 % Normal 4-8 [facility] Comment on above: Performed By: #### C DP, BMP #### [facility] [address] [place] [phone] Product Marketing Manager: Mike Forde MD Neutrophil (Seg) 70 % Normal 47-75 [facility] Comment on above: Performed By: #### C DP, BMP #### [facility] [address] [place] [phone] Product Marketing Manager: Mike Forde MD Platelet mean volume (Bld) [Entitic vol] 10.5 fL Normal 6.0-12.0 [facility] Comment on above: Performed By: #### C DP, BMP #### [facility] [address] [place] [phone] Product Marketing Manager: Mike Forde MD Platelets (Bld) [#/Vol] 279 10*3/uL Normal 140-450 [facility] Comment on above: Performed By: #### C DP, BMP #### [facility] [address] [place] [address] [phone] Product Marketing Manager: Mike Forde MD RBC (Bld) [#/Vol] 5.37 10*6/uL High 4.00-5.20 [facility] Comment on above: Performed By: #### C DP, BMP #### [facility] [address] [place] [phone] Product Marketing Manager: Mike Forde MD WBC (Bld) [#/Vol] 10.8 10*3/uL Normal 3.5-11.0 [facility] Comment on above: Performed By: #### C DP, BMP #### [facility] [address] [place] [address] [phone] Product Marketing Manager: Mike Forde MD CBC with Auto Differentialon 12-13-2021 Absolute Eos # 0.00 [facility] Absolute Lymph # 1.90 [facility] Absolute [place] # 0.50 [facility] Basophils (Bld) [#/Vol] 0.00 10*3/uL [facility] Basophils/100 WBC (Bld) 0 % 0 - 2 % [facility] Differential Type YES [facility] Eosinophils/100 WBC (Bld) 0 % [...] g/dL 31 - 37 g/dL [facility] MCV (RBC) [Entitic vol] 86.2 fL 80 - 100 fL [facility] Monocytes/100 WBC (Bld) 5 % 4 - 8 % [facility] Platelet distribution width (Bld) [Ratio] 12.3 % 12.1 - 15.2 % [facility] Platelets (Bld) [#/Vol] 265 10*3/uL [facility] RBC (Bld) [#/Vol] 5.05 10*6/uL 4.0 - 5.2 m/uL [facility] Segmented neutrophils/100 WBC (Bld) 74 % 47 - 75 % [facility] Segs Absolute 6.60 [facility] WBC (Bld) [#/Vol] 9.1 10*3/uL [facility] Comprehensive Metabolic Pane davi 12-13-2021 Albumin [Mass/Vol] 4.3 g/dL 3.5 - 5.2 g/dL [facility] ALP (Bld) [Catalytic activity/Vol] 77 [...] [Moles/Vol] 25 mmol/L 20 - 31 mmol/L [facility] Creatinine [Mass/Vol] 0.77 mg/dL 0.50 - 0.90 [...] body mass. Additional eGFR calculator available at: http://[email or web address]/multiple_crcl_2012.htm Glucose [Mass/Vol] 93 mg/dL 70 - 99 mg/dL [facility] Potassium [Moles/Vol] 4.2 mmol/L 3.7 - 5.3 mmol /L [facility] Sodium [Moles/Vol] 138 mmol/L 135 - 144 mmol/L [facility] Urea nitrogen (BldV) [Mass/Vol] 9 mg/dL 6 - 20 mg/dL [facility] Urea nitrogen/Creatinine (Bld) [Mass ratio] 12 [facility] Encounters Encounter Date Encounter Type Care Provider Facility Start: 10-31-2023 End: 10-31-2023 ambulatory NAHED RITA Not Available Start: 10-23-2023 End: 10-23-2023 ambulatory NAHED RITA Not Available Start: 10-05-2023 End: 10-05-2023 ambulatory ALICIA ASTON Not Available Start: 09-21-2023 End: 09-21-2023 ambulatory NAHED RITA Not Available Start: 09-07-2023 End: 09-07-2023 ambulatory ALICIA ASTON Not Available Start: 08-09-2023 End: 08-09-2023 ambulatory NAHED RITA Not Available Start: 07-12-2023 End: 07-12-2023 ambulatory ALICIA ASTON Not Available Start: 06-14-2023 End: 06-14-2023 ambulatory NAHED RITA Not Available Start: 05-30-2023 End: 05-31-2023 [facility] Start: 04-16-2023 End: 04-17-2023 [facility] Start: 12-13-2021 End: 12-13-2021 Subsequent hospital visit by physician Arpit Leblanc CNP Work Phone: [facility] Comment on above: Blood in stool, zeina k; Gastroesophageal reflux disease without esophagitis; Diarrhea, unspecified type; Abdominal cramping Start: 03-01-2019 End: 03-01-2019 Subsequent hospital visit by physician 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 [facility] Comment on above: Need for [...] 01/11/2022 Office Visit Family Medicine 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, SQL REPORT WRITER - GRAVITY MANAGER [address] [place] [address] [facility] Start: 2019 Screening for malign ant neoplasm of cervix Pap smear [facility] Start: 03-10-2019 Influenza vaccination Flu vaccine (# 1) [place], [place] Start: 2017 DTaP/Tdap/Td vaccine (1 - Tdap) DTaP/Tdap/Td vaccine (1 - Tdap) [place] Start: 2016 Hepatitis C screening Hepatitis C sc reen [facility] Start: 2014 Chlamydia screen Chlamydia screen [place], [place] Start: 2014 Screening for Chlamy nathalie trachomatis Chlamydia screen [facility] Start: 2013 HIV screen HIV screen [place], [place] Start: 2013 HIV screening HIV screen [facility] Start: 2013 HPV vaccine (1 - Fem dana 3-dose series) HPV vaccine (1 - Female 3-dose series) [place], [place] Start: 2011 Varicella Vaccine (1 of 2 - 13+ 2-dose series) Varicella Vaccine (1 of 2 - 13+ 2-dose series) [place] Start: 2009 HPV vaccine (1 - [...] gustavo 1 Occurrences starting 12/13/2021 until 12/13/2021 [facility] Work Phone: Comment on above: 1 Occurrences starti ng 12/13/2021 until 12/13/2021 End: 12-13-2021 Celiac Disease Panel Celiac Disease Panel Lab Routine Diarrhea, unspecified type Abdominal cramping 1 Occurrences starting 12/13/2021 until 12/13/2021 [employer] Phone: Comment on above: 1 Occurrences starti ng 12/13/2021 until 12/13/2021 End: 12-13-2021 [facility]ac [facility] [employer] Phone: Comment on above: Once for 1 Occurrenc es starting 12/13/2021 until 12/13/2021 End: 12-13-2021 Comprehensive metabolic 2000 panel - Serum or Plasma Comprehensive Metabolic Panel Lab Routine Blood in stool, gustavo Gastroesophageal reflux disease without esophagitis 1 Occurrences starting 12/13/2021 until 12/13/2021 [employer] Phone: Comment on above: 1 Occurrences starti ng 12/13/2021 until 12/13/2021 End: 03-01-2019 Varicella Zoster Antibody, IgG Varicella Zoster Antibody, IgG Lab Routine Need for varicella vaccine 1 Occurrences starting 03/01/2019 until 03/01/2019 [place] Comment on above: 1 Occurrences starti ng 03/01/2019 until 03/01/2019 Varicella Zoster Antibody, IgG Varicella Zoster Antibody, IgG Lab Routine Need for varicella vaccine 03/01/2019 11:50 AM EDT [place], [place] Immunizations Immunization Date Immunization Notes Care Provider Rohit mcnally 09-18-2021 COVID-19, Pfizer Pur ple top, DILUTE for use, 12+ yrs, 30mcg/0.3mL dose 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 SQL REPORT WRITER - GRAVITY MANAGER Work Phone: [employer] Phone: 11-27-2019 Hepatitis B vaccine (recombinant), CpG adjuvanted 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 SQL REPORT WRITER - GRAVITY MANAGER Work Phone: [employer] Work Phone: 11-27-2019 tetanus toxoid, redu gordon diphtheria toxoid, and acellular pertussis vaccine, adsorbed 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 SQL REPORT WRITER - [facility] Work Phone: [employer] [facility] [facility] [employer] Work Phone: 03-27-2019 hepatitis B vaccine, adult dosage 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 Work Phone: [employer] [facility] [employer] Work Phone: 03-27-2019 measles, mumps and rubella virus vaccine 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 [facility] Work Phone: [employer] [facility] [employer] Work Phone: 03-03-2019 measles, mumps and rubella virus vaccine 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 [facility] Work Phone: [facility] [employer] Work Phone: 02-25-2019 hepatitis B vaccine, adult dosage 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 [employer] [facility] Payers Date Payer Category Payer Unknown [id number] 2022 Private Health Insurance [id number] 2018 Unknown BCBS [place] P PO xxxxxxxxxxxx 2018-Present [address] [place] [address] xxxxxxxxxxxx [id number] 2018 Unknown [id number] 1998 Unknown [id number] 2.16.840.1.194362.3.579.2 .174 1998 Unknown [id number] 2.16.840.1.540389.3.579.2 .174 1998 Unknown [id number] 2.16.840.1.801142.3.579.2 .1259 1998 Unknown [id number] 2.16.840.1.234192.3.579.2 .1259 1998 Unknown [id number] 2.16.840.1.225460.3.579.2 .9 1998 Unknown [id number] 2.16.840.1.433102.3.579.2 .9 1998 Unknown [id number] 2.16.840.1.480571.3.579.2 .9 1998 Unknown [id number] 2.16.840.1.055032.3.579.2 .9 1998 Unknown [id number] 2.16.840.1.751114.3.579.2 .9 1998 Unknown [id number] 2.16.840.1.928409.3.579.2 .9 Social History Date Type Detail Facility Start: 04-25-2016 End: 11-26-2018 Tobacco smoking status NHIS Never smoker [place], [place] Start: 11-26-2018 [facility] [place] [place] Start: 1998 Sex Assigned At Not on file [place], [place] Start: 04-25-2016 Tobacco use and exposure Smokeless tobacco non-user [employer] Phone: Start: 12-13-2021 Alcohol intake Current non-dr dispensing optician of alcohol (finding) [employer] Phone: Start: 12-13-2021 History SDOH Financial 5 [employer] Phone: Start: 12-13-2021 History 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 1 [employer] Phone: Evaluation note Note Date & Type Note Facility Evaluation note Diagnosis Blood in stool, gustavo Blood in stool Gastroesophageal reflux disease without esophagitis Esophageal reflux Diarrhea, unspecified type Abdominal cramping Abdominal pain, unspecified site documented in this encounter [employer] Phone: Assessments Diagnosis Need for varicella vaccine Need for prophylactic vaccination and inoculation against varicella Advance Directives No Advanced Directives Records FoundDocuments on File Type Date Recorded Patient [employer] Technology Department Chair Expl anation Advance Directives and Living Will Power of Supervisor [employer] Documents on File Type Date Recorded Patient Electronics Technology Department Chair Expl anation ACP-Advance Directive ACP-Power of Supervisor [employer] Summary Purpose Family History No Family History Records FoundNo Family History Records Found Additional Source Comments Care Teams (unrecognized sec tion and content) Corner Cutter Relationship Specialty Start Date End Date 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, SQL REPORT WRITER - GRAVITY MANAGER [address] [place] [address] PCP - General Nurse Practitioner 11/23/16 INFORMATION SOURCE (unrecogn ized section and content) DATE CREATED AUTHOR 06/02/2023 Rachel allen DATE CREATED AUTHOR AUTHOR'S CHARLIE GAGNON 11/01/2023 [facility] EPIC FOR RECORDS PERTAINING TO PATIENTS [...] BE BASED ON THE PRIMARY CLINICAL RECORDS. [employer] provides no warranty or guarantee of the accuracy or completeness of information in this document.
[2023-11-01 11:10] VITALS: BP 123/58; PULSE 85
== END 2023-11-01 11:47 | disposition home or self-care (01) ==
LOC: FBCO 07:05 → FBC 11:04
PROVIDERS: Visit Provider Obstetrics & Gynecology
DX: O99.283 Endocrine, nutritional and metabolic diseases complicating pregnancy, third trimester (principal)
CPT/HCPCS: 59025

== ENCOUNTER 2023-11-04 01:42 | Outpatient (OUT) | payer BC, OTHER, SELFPAY ==
--- OUTSIDE RECORDS SUMMARY | 2023-11-04 01:44 | XMS_ITS | CCD ---
Author Organization [facility] Care Team Providers Care Busher Helper Name Role Phone 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 [facility] [...] 05-30-2023 Abs. Basophil 0.01 k/uL Normal 0.00-0.20 [facility] Comment on above: Performed By: #### C DP, CP #### [facility] [address] [place] [address] Surgical Aides Teacher: Mike Forde MD Abs.Imm.Granulocyte 0.01 k/uL Normal 0.00-0.30 [facility] Comment on above: Performed By: #### C DP, CP #### [facility] [address] [place] [address] Surgical Aides Teacher: Mike Forde MD Abs.Neutrophil (Seg) 6.24 k/uL Normal 2.5-7.0 [facility] Comment on above: Performed By: #### C DP, CP #### [facility] [address] [place] [address] Surgical Aides Teacher: Mike Forde MD Basophils/100 WBC (Bld) 0 % Normal 0-2 [facility] Comment on above: Performed By: #### C DP, CP #### [facility] [address] [place] [address] Surgical Aides Teacher: Mike Forde MD Eosinophils (Bld) [#/Vol] 0.00 10*3/uL Normal 0.00-0.40 [facility] Comment on above: Performed By: #### C DP, CP #### [facility] [address] [place] [id number] Surgical Aides Teacher: Mike Forde MD Eosinophils/100 WBC (Bld) 0 % Normal 0-5 [facility] Comment on above: Performed By: #### C DP, CP #### [facility] [address] [place], [place] [id number] Surgical Aides Teacher: Mike Forde MD Erythrocyte distribution width (RBC) [Ratio] 11.9 % Low 12.1-15.2 [facility] Comment on above: Performed By: #### C DP, CP #### [facility] [address] [place] [id number] Surgical Aides Teacher: Mike Forde MD Hematocrit (Bld) [Volume fraction] 41.1 % Normal 36.0-46.0 [facility] Comment on above: Performed By: #### C DP, CP #### [facility] [address] [place] [address] Surgical Aides Teacher: Mike Forde MD Hemoglobin (Bld) [Mass/Vol] 14.5 g/dL Normal 12.0-16.0 [facility] Comment on above: Performed By: #### C DP, CP #### [facility] [address] [place] [id number] Surgical Aides Teacher: Mike Forde MD Immature granulocytes/100 WBC (Bld) 0 % Normal 0-5 [facility] Comment on above: Performed By: #### C DP, CP #### [facility] [address] [place] [id number] Surgical Aides Teacher: Mike Forde MD Lymphocytes (Bld) [#/Vol] 1.74 10*3/uL Normal 1.00-4.80 [facility] Comment on above: Performed By: #### C DP, CP #### [facility] [address] [place], [place] [id number] Surgical Aides Teacher: Mike Forde MD Lymphocytes/100 WBC (Bld) 21 % Normal 15-40 [facility] Comment on above: Performed By: #### C DP, CP #### [facility] [address] [place] [address] Surgical Aides Teacher: Mike Forde MD MCH (RBC) [Entitic mass] 29.2 pg Normal 26.0-34.0 [facility] Comment on above: Performed By: #### C DP, CP #### [facility] [address] [place] [address] Surgical Aides Teacher: Mike Forde MD MCHC (RBC) [Mass/Vol] 35.3 g/dL Normal 31.0-37.0 [facility] Comment on above: Performed By: #### C DP, CP #### [facility] [address] [place] [address] Surgical Aides Teacher: Mike Forde MD MCV (RBC) [Entitic vol] 82.9 fL Normal 80.0-100.0 [facility] Comment on above: Performed By: #### C DP, CP #### [facility] [address] [place] [address] Surgical Aides Teacher: Mike Forde MD Monocytes (Bld) [#/Vol] 0.50 10*3/uL Normal 0.00-1.00 [facility] Comment on above: Performed By: #### C DP, CP #### [facility] [address] [place] [address] Surgical Aides Teacher: Mike Forde MD Monocytes/100 WBC (Bld) 6 % Normal 4-8 [facility] Comment on above: Performed By: #### C DP, CP #### [facility] [address] [place] [address] Surgical Aides Teacher: Mike Forde MD Neutrophil (Seg) 73 % Normal 47-75 [facility] Comment on above: Performed By: #### C DP, CP #### [facility] [address] [place] [address] Surgical Aides Teacher: Mike Forde MD Platelet mean volume (Bld) [Entitic vol] 10.4 fL Normal 6.0-12.0 [facility] Comment on above: Performed By: #### C DP, CP #### [facility] [address] [place], [place] [id number] Surgical Aides Teacher: Mike Forde MD Platelets (Bld) [#/Vol] 227 10*3/uL Normal 140-450 [facility] Comment on above: Performed By: #### C DP, CP #### [facility] [address] [place], [place] [id number] Surgical Aides Teacher: Mike Forde MD RBC (Bld) [#/Vol] 4.96 10*6/uL Normal 4.00-5.20 [facility] Comment on above: Performed By: #### C DP, CP #### [facility] [address] [place], [place] [id number] Surgical Aides Teacher: Mike Forde MD WBC (Bld) [#/Vol] 8.5 10*3/uL Normal 3.5-11.0 [facility] Comment on above: Performed By: #### C DP, CP #### [facility] [address] [place], [place] [id number] Surgical Aides Teacher: Mike Forde MD Comp Metabolic Profon 2022 Albumin [Mass/Vol] 4.2 g/dL Normal 3.5-5.2 [facility] Comment on above: Performed By: #### C DP, CP #### [facility] [address] [place] [address] Surgical Aides Teacher: Mike Forde MD Alkaline Phos 48 U/L Normal 35-104 [facility] Comment on above: Performed By: #### C DP, CP #### [facility] [address] [place], [place] [id number] Surgical Aides Teacher: Mike Forde MD ALT [Catalytic activity/Vol] 12 U/L Normal 5-33 [facility] Comment on above: Performed By: #### C DP, CP #### [facility] [address] [place], [place] [id number] Surgical Aides Teacher: Mike Forde MD Anion gap [Moles/Vol] 15 mmol/L Normal 9-17 [facility] Comment on above: Performed By: #### C DP, CP #### [facility] [address] [place], [place] [id number] Surgical Aides Teacher: Mike Forde MD AST [Catalytic activity/Vol] 11 U/L Normal <32 [facility] Comment on above: Performed By: #### C DP, CP #### [facility] [address] [place], [place] [id number] Surgical Aides Teacher: Mike Forde MD Bilirubin [Mass/Vol] mg/dL Low 0.3-1.2 [facility] Comment on above: Performed By: #### C DP, CP #### [facility] [address] [place], [place] [id number] Surgical Aides Teacher: Mike Forde MD BUN/CRE Ratio 14 Normal 9-20 [facility] Comment on above: Performed By: #### C DP, CP #### [facility] [address] [place], [place] [id number] Surgical Aides Teacher: Mike Forde MD Calcium [Mass/Vol] 9.7 mg/dL Normal 8.6-10.4 [facility] Comment on above: Performed By: #### C DP, CP #### [facility] [address] [place], [place] [id number] Surgical Aides Teacher: Mike Forde MD Chloride [Moles/Vol] 101 mmol/L Normal 98-107 [facility] Comment on above: Performed By: #### C DP, CP #### [facility] [address] [place], [place] [id number] Surgical Aides Teacher: Mike Forde MD CO2 [Moles/Vol] 22 mmol/L Normal 20-31 [facility] Comment on above: Performed By: #### C DP, CP #### [facility] [address] [place] [address] Surgical Aides Teacher: Mike Forde MD Creatinine [Mass/Vol] 0.5 mg/dL Normal 0.5-0.9 [facility] Comment on above: Performed By: #### C DP, CP #### [facility] [address] [place] [address] Surgical Aides Teacher: Mike Forde MD GFR/1.73 sq M.predicted among non-blacks MDRD (S/P/Bld) [Vol rate/Area] mL/min/{1.73_m2} Normal >60 [facility] Comment on above: Result Comment: [...] Performed By: #### C DP, CP #### [facility] [address] [place] [address] Surgical Aides Teacher: Mike Forde MD Glucose [Mass/Vol] 90 mg/dL Normal 70-99 [facility] Comment on above: Performed By: #### C DP, CP #### [facility] [address] [place] [id number] Surgical Aides Teacher: Mike Forde MD Potassium [Moles/Vol] 3.5 mmol/L Low 3.7-5.3 [facility] Comment on above: Performed By: #### C DP, CP #### [facility] [address] [place], [place] [id number] Surgical Aides Teacher: Mike Forde MD Protein [Mass/Vol] 7.5 g/dL Normal 6.4-8.3 [facility] Comment on above: Performed By: #### C DP, CP #### [facility] [address] [place], [place] [id number] Surgical Aides Teacher: Mike Forde MD Sodium [Moles/Vol] 138 mmol/L Normal 135-144 [facility] Comment on above: Performed By: #### C DP, CP #### [facility] [address] [place], [place] [id number] Surgical Aides Teacher: Mike Forde MD Urea nitrogen [Mass/Vol] 7 mg/dL Normal 6-20 [facility] Comment on above: Performed By: #### C DP, CP #### [facility] [address] [place] [address] Surgical Aides Teacher: Mike Forde MD Basic Metabolic Profon 04-16 Anion gap [Moles/Vol] 15 mmol/L Normal 9-17 [facility] Comment on above: Performed By: #### C DP, BMP #### [facility] [address] [place], [place] [id number] Surgical Aides Teacher: Mike Forde MD BUN/CRE Ratio 10 Normal 9-20 [facility] Comment on above: Performed By: #### C DP, BMP #### [facility] [address] [place], [place] [id number] Surgical Aides Teacher: Mike Forde MD Calcium [Mass/Vol] 10.2 mg/dL Normal 8.6-10.4 [facility] Comment on above: Performed By: #### C DP, BMP #### [facility] [address] [place], [place] [id number] Surgical Aides Teacher: Mike Forde MD Chloride [Moles/Vol] 98 mmol/L Normal 98-107 [facility] Comment on above: Performed By: #### C DP, BMP #### [facility] [address] [place], [place] [id number] Surgical Aides Teacher: Mike Frode MD CO2 [Moles/Vol] 22 mmol/L Normal 20-31 [facility] Comment on above: Performed By: #### C DP, BMP #### [facility] [address] [place], [place] [id number] Surgical Aides Teacher: Mike Forde MD Creatinine [Mass/Vol] 0.7 mg/dL Normal 0.5-0.9 [facility] Comment on above: Performed By: #### C DP, BMP #### [facility] [address] [place] [address] Surgical Aides Teacher: Mike Forde MD GFR/1.73 sq M.predicted among non-blacks MDRD (S/P/Bld) [Vol rate/Area] mL/min/{1.73_m2} Normal >60 [facility] Comment on above: Result Comment: [...] Performed By: #### C DP, BMP #### [facility] [address] [place] [address] Surgical Aides Teacher: Mike Forde MD Glucose [Mass/Vol] 113 mg/dL High 70-99 [facility] Comment on above: Performed By: #### C DP, BMP #### [facility] [address] [place], [place] [id number] Surgical Aides Teacher: Mike Forde MD Potassium [Moles/Vol] 3.4 mmol/L Low 3.7-5.3 [facility] Comment on above: Performed By: #### C DP, BMP #### [facility] [address] [place] [address] Surgical Aides Teacher: Mike Forde MD Sodium [Moles/Vol] 135 mmol/L Normal 135-144 [facility] Comment on above: Performed By: #### C DP, BMP #### [facility] [address] [place] [phone] Surgical Aides Teacher: Mike Forde MD Urea nitrogen [Mass/Vol] 7 mg/dL Normal 6-20 [facility] Comment on above: Performed By: #### C DP, BMP #### [facility] [address] [place] [address] Surgical Aides Teacher: Mike Forde MD CBC with Diffon 04-16-2023 Abs. Basophil 0.03 k/uL Normal 0.00-0.20 [facility] Comment on above: Performed By: #### C DP, BMP #### [facility] [address] [place] [phone] Surgical Aides Teacher: Mike Forde MD Abs.Imm.Granulocyte 0.02 k/uL Normal 0.00-0.30 [facility] Comment on above: Performed By: #### C DP, BMP #### [facility] [address] [place] [phone] Surgical Aides Teacher: Mike Forde MD Abs.Neutrophil (Seg) 7.51 k/uL High 2.5-7.0 [facility] Comment on above: Performed By: #### C DP, BMP #### [facility] [address] [place] [address] Surgical Aides Teacher: Mike Forde MD Basophils/100 WBC (Bld) 0 % Normal 0-2 [facility] Comment on above: Performed By: #### C DP, BMP #### [facility] [address] [place] [id number] Surgical Aides Teacher: Mike Forde MD Eosinophils (Bld) [#/Vol] 0.03 10*3/uL Normal 0.00-0.40 [facility] Comment on above: Performed By: #### C DP, BMP #### [facility] [address] [place], [place] [id number] Surgical Aides Teacher: Mike Forde MD Eosinophils/100 WBC (Bld) 0 % Normal 0-5 [facility] Comment on above: Performed By: #### C DP, BMP #### [facility] [address] [place] [id number] Surgical Aides Teacher: Mike Forde MD Erythrocyte distribution width (RBC) [Ratio] 11.8 % Low 12.1-15.2 [facility] Comment on above: Performed By: #### C DP, BMP #### [facility] [address] [place] [phone] Surgical Aides Teacher: Mike Forde MD Hematocrit (Bld) [Volume fraction] 43.4 % Normal 36.0-46.0 [facility] Comment on above: Performed By: #### C DP, BMP #### [facility] [address] [place] [id number] Surgical Aides Teacher: Mike Forde MD Hemoglobin (Bld) [Mass/Vol] 15.5 g/dL Normal 12.0-16.0 [facility] Comment on above: Performed By: #### C DP, BMP #### [facility] [address] [place] [address] Surgical Aides Teacher: Mike Forde MD Immature granulocytes/100 WBC (Bld) 0 % Normal 0-5 [facility] Comment on above: Performed By: #### C DP, BMP #### [facility] [address] [place], [place] [id number] Surgical Aides Teacher: Mike Forde MD Lymphocytes (Bld) [#/Vol] 2.33 10*3/uL Normal 1.00-4.80 [facility] Comment on above: Performed By: #### C DP, BMP #### [facility] [address] [place] [address] Surgical Aides Teacher: Mike Forde MD Lymphocytes/100 WBC (Bld) 22 % Normal 15-40 [facility] Comment on above: Performed By: #### C DP, BMP #### [facility] [address] [place] [address] Surgical Aides Teacher: Mike Forde MD MCH (RBC) [Entitic mass] 28.9 pg Normal 26.0-34.0 [facility] Comment on above: Performed By: #### C DP, BMP #### [facility] [address] [place] [address] Surgical Aides Teacher: Mike Forde MD MCHC (RBC) [Mass/Vol] 35.7 g/dL Normal 31.0-37.0 [facility] Comment on above: Performed By: #### C DP, BMP #### [facility] [address] [place] [address] Surgical Aides Teacher: Mike Forde MD MCV (RBC) [Entitic vol] 80.8 fL Normal 80.0-100.0 [facility] Comment on above: Performed By: #### C DP, BMP #### [facility] [address] [place] [id number] Surgical Aides Teacher: Mike Fodre MD Monocytes (Bld) [#/Vol] 0.88 10*3/uL Normal 0.00-1.00 [facility] Comment on above: Performed By: #### C DP, BMP #### [facility] [address] [place] [address] Surgical Aides Teacher: Mike Forde MD Monocytes/100 WBC (Bld) 8 % Normal 4-8 [facility] Comment on above: Performed By: #### C DP, BMP #### [facility] [address] [place] [address] (460) Surgical Aides Teacher: Mike Forde MD Neutrophil (Seg) 70 % Normal 47-75 [facility] Comment on above: Performed By: #### C DP, BMP #### [facility] [address] [place] [address] (985) Surgical Aides Teacher: Mike Forde MD Platelet mean volume (Bld) [Entitic vol] 10.5 fL Normal 6.0-12.0 [facility] Comment on above: Performed By: #### C DP, BMP #### [facility] [address] [place] [address] (385) Surgical Aides Teacher: Mike Forde MD Platelets (Bld) [#/Vol] 279 10*3/uL Normal 140-450 [facility] Comment on above: Performed By: #### C DP, BMP #### [facility] [address] [place] [address] (204) Surgical Aides Teacher: Mike Forde MD RBC (Bld) [#/Vol] 5.37 10*6/uL High 4.00-5.20 [facility] Comment on above: Performed By: #### C DP, BMP #### [facility] [address] [place] [phone] (127) Surgical Aides Teacher: Mike Forde MD WBC (Bld) [#/Vol] 10.8 10*3/uL Normal 3.5-11.0 [facility] Comment on above: Performed By: #### C DP, BMP #### [facility] [address] [place] [address] ([phone]) Surgical Aides Teacher: Mike Forde MD CBC with Auto Differentialon 12-13-2021 Absolute Eos # 0.[address] [facility] Absolute Lymph # 1.[address] [facility] Absolute [place] # 0.[address] [facility] [facility] Basophils (Bld) [#/Vol] 0.00 10*3/uL [facility] Basophils/100 WBC (Bld) 0 % 0 - 2 % [facility] Differential Type YES [facility] Eosinophils/100 WBC (Bld) 0 % 0 - 5 % [facility] Hematocrit (Bld) [Volume fraction] 43.5 % 36 - 46 % [facility] Hemoglobin (Bld) [Mass/Vol] 14.6 g/dL 12.0 - 16.0 g/dL [facility] Lymphocytes/100 WBC (Bld) 21 % 15 - 40 % [facility] MCH (RBC) [Entitic mass] 28.9 pg 26 - 34 pg [facility] MCHC (RBC) [Mass/Vol] 33.5 g/dL 31 - 37 g/dL [facility] MCV (RBC) [Entitic vol] 86.2 fL 80 - 100 fL [facility] Monocytes/100 WBC (Bld) 5 % 4 - 8 % [facility] Platelet distribution width (Bld) [Ratio] 12.3 % 12.1 - 15.2 % [facility] Platelets (Bld) [#/Vol] 265 10*3/uL [facility] RBC (Bld) [#/Vol] 5.05 10*6/uL 4.0 - 5.2 m/uL [facility] Segmented neutrophils/100 WBC (Bld) 74 % 47 - 75 % [facility] Segs Absolute 6.60 [facility] WBC (Bld) [#/Vol] 9.1 10*3/uL [facility] Comprehensive Metabolic Pane davi 12-13-2021 Albumin [Mass/Vol] 4.3 g/dL 3.5 - 5.2 g/dL [facility] ALP (Bld) [Catalytic activity/Vol] 77 U/L 35 - 104 U/L [facility] ALT [Catalytic activity/Vol] 23 U/L 5 - 33 U/L [facility] Anion gap [Moles/Vol] 11 mmol/L 9 - 17 mmol/L [facility] AST [Catalytic activity/Vol] 15 U/L <32 [facility] Bilirubin [Mass/Vol] 0.51 mg/dL 0.30 - 1.20 mg/dL [facility] Calcium [Mass/Vol] 9.6 mg/dL 8.6 - 10.4 mg/dL [facility] Chloride [Moles/Vol] 102 mmol/L 98 - 107 mmol/L [facility] CO2 [Moles/Vol] 25 mmol/L 20 - 31 mmol/L [facility] Creatinine [Mass/Vol] 0.77 mg/dL 0.50 - 0.90 mg/dL [facility] Free PSA/Total PSA [Mass fraction] 7.4 g/dL 6.4 - 8.3 g/dL [facility] GFR >60 >60 mL/min [facility] GFR Non- >60 >60 mL/min [facility] GFR/1.73 sq M.predicted MDRD (S/P/Bld) [Vol rate/Area] [facility] Comment on above: Average GFR for 20-2 9 years old: 116 mL/min/1.73sq m Chronic Kidney Disease: <60 mL/min/1.73sq m Kidney failure: <15 mL/min/1.73sq m eGFR calculated using average adult body mass. Additional eGFR calculator available at: http://www.[employer]/multiple_crcl_2012.htm Glucose [Mass/Vol] 93 mg/dL 70 - 99 mg/dL [facility] Potassium [Moles/Vol] 4.2 mmol/L 3.7 - 5.3 mmol /L [facility] Sodium [Moles/Vol] 138 mmol/L 135 - 144 mmol/L [facility] Urea nitrogen (BldV) [Mass/Vol] 9 mg/dL 6 - 20 mg/dL [facility] Urea nitrogen/Creatinine (Bld) [Mass ratio] 12 [facility] Encounters Encounter Date Encounter Type [...] 05-30-2023 End: 05-31-2023 [facility] Start: 04-16-2023 End: 04-17-2023 [facility] Start: 12-13-2021 End: 12-13-2021 Subsequent hospital visit by physician Arpit Leblanc CNP Work Phone: [employer] [facility] Comment on above: Blood in stool, zeina k; Gastroesophageal reflux disease without esophagitis; Diarrhea, unspecified type; Abdominal cramping Start: 03-01-2019 End: 03-01-2019 Subsequent hospital visit by physician 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 [facility] Comment on above: Need for varicella v accine Procedures Date Procedure Procedure Detail Performing Clinician Start: 12-13-2021 Comprehensive metabo lic panel Arpit Leblanc CNP Work Phone: Plan of Treatment Date Care Activity Detail Author Start: 11-26-2029 DTaP/Tdap/Td vaccine (3 - Td or Tdap) DTaP/Tdap/Td vaccine (3 - Td or Tdap) [facility] Start: 12-13-2022 Depression Screen Depression Screen [facility] Start: 03-14-2022 COVID-19 Vaccine (3 - Booster for Pfizer series) COVID-19 Vaccine (3 - Booster for Pfizer series) [facility] Start: 03-10-2022 Influenza vaccination Flu vaccine (S angelo Ended) [facility] Start: 01-11-2022 End: 01-11-2022 Patient encounter procedure 01/11/2022 Office Visit Family Medicine 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, ORTHODONTIST - [facility] [address] [place] [address] [facility] Start: 2019 Screening for malign ant neoplasm of cervix Pap smear [facility] Start: 03-10-2019 Influenza vaccination Flu vaccine (# 1) [place], [place] Start: 2017 DTaP/Tdap/Td vaccine (1 - Tdap) DTaP/Tdap/Td vaccine (1 - Tdap) [place] Start: 2016 Hepatitis C screening Hepatitis C sc reen [facility] Start: 2014 Chlamydia screen Chlamydia screen [place], [place] Start: 2014 Screening for Chlamy nathalie trachomatis Chlamydia screen [facility] Start: 2013 HIV screen HIV screen [place], [place] Start: 2013 HIV screening HIV screen [facility] Start: 2013 HPV vaccine (1 - Fem dana 3-dose series) HPV vaccine (1 - Female 3-dose series) [place], [place] Start: 2011 Varicella Vaccine (1 of 2 - 13+ 2-dose series) Varicella Vaccine (1 of 2 - 13+ 2-dose series) [place] Start: 2009 HPV vaccine (1 - 2-d ose series) HPV vaccine (1 - 2-dose series) [facility] Start: 1999 Varicella vaccine (1 of 2 - 2-dose childhood series) Varicella vaccine (1 of 2 - 2-dose childhood series) [facility] End: 12-13-2021 CBC W Auto Differential panel - Blood CBC with Auto Differential Lab Routine Diarrhea, unspecified type Blood in stool, gustavo 1 Occurrences starting 12/13/2021 until 12/13/2021 [facility] Work Phone: Comment on above: 1 Occurrences starti ng 12/13/2021 until 12/13/2021 End: 12-13-2021 Celiac Disease Panel Celiac Disease Panel Lab Routine Diarrhea, unspecified type Abdominal cramping 1 Occurrences starting 12/13/2021 until 12/13/2021 [employer] Phone: Comment on above: 1 Occurrences starti ng 12/13/2021 until 12/13/2021 End: 12-13-2021 Celiac Plus [employer] Phone: Comment on above: Once for 1 Occurrenc es starting 12/13/2021 until 12/13/2021 End: 12-13-2021 Comprehensive metabolic 2000 panel - Serum or Plasma Comprehensive Metabolic Panel Lab Routine Blood in stool, gustavo Gastroesophageal reflux disease without esophagitis 1 Occurrences starting 12/13/2021 until 12/13/2021 [employer] Phone: Comment on above: 1 Occurrences starti ng 12/13/2021 until 12/13/2021 End: 03-01-2019 Varicella Zoster Antibody, IgG Varicella Zoster Antibody, IgG Lab Routine Need for varicella vaccine 1 Occurrences starting 03/01/2019 until 03/01/2019 [place], [place] Comment on above: 1 Occurrences starti ng 03/01/2019 until 03/01/2019 Varicella Zoster Antibody, IgG Varicella Zoster Antibody, IgG Lab Routine Need for varicella vaccine 03/01/2019 11:50 AM EDT [place], [place] Immunizations Immunization Date Immunization Notes Care Provider Rohit mcnally 09-18-2021 COVID-19, Pfizer Pur ple top, DILUTE for use, 12+ yrs, 30mcg/0.3mL dose 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 ORTHODONTIST - [facility] Work Phone: [employer] Phone: 11-27-2019 Hepatitis B vaccine (recombinant), CpG adjuvanted 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 ORTHODONTIST - [facility] Work Phone: [employer] Work Phone: 11-27-2019 tetanus toxoid, redu gordon diphtheria toxoid, and acellular pertussis vaccine, adsorbed 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 OR[facility]ODONTIST - [facility] Work Phone: [facility] [employer] Work Phone: 03-27-2019 hepatitis B vaccine, adult dosage 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 Work Phone: [facility] [employer] Work Phone: 03-27-2019 measles, mumps and rubella virus vaccine 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 [facility] Work Phone: [facility] [employer] Work Phone: 03-03-2019 measles, mumps and rubella virus vaccine 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 [facility] Work Phone: [facility] [employer] Work Phone: 02-25-2019 hepatitis B vaccine, adult dosage 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 [facility] Payers Date Payer Category Payer Unknown [id number] 2022 Private Health Insurance [id number] 2018 Unknown BCBS [place] - [place] P PO xxxxxxxxxxxx 2018-Present [address] [place] [address] xxxxxxxxxxxx [id number] 2018 Unknown [id number] 1998 Unknown [id number] [id number] .174 1998 Unknown [id number] [id number] .174 1998 Unknown [id number] 2.16.840.1.839566.3.579.2 .1259 1998 Unknown [id number] 2.16.840.1.224586.3.579.2 .1259 1998 Unknown [id number] 2.16.840.1.237734.3.579.2 .9 1998 Unknown [id number] 2.16.840.1.915374.3.579.2 .9 1998 Unknown [id number] 2.16.840.1.557776.3.579.2 .9 1998 Unknown [id number] 2.16.840.1.295176.3.579.2 .9 1998 Unknown [id number] 2.16.840.1.376348.3.579.2 .9 1998 Unknown [id number] 2.16.840.1.047378.3.579.2 .9 Social History Date Type Detail Facility Start: 04-25-2016 End: 11-26-2018 Tobacco smoking status NHIS Never smoker [place], [place] Start: 11-26-2018 [facility] [place] [place] Start: 2000 Sex Assigned At Not on file [place] Start: 04-25-2016 Tobacco use and exposure Smokeless tobacco non-user [employer] Phone: Start: 12-13-2021 Alcohol intake 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) [employer] Phone: Start: 12-13-2021 History SDOH Financial 5 [employer] Phone: Start: 12-13-2021 History 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 1 [employer] Phone: Evaluation note Note Date & Type Note Facility Evaluation note Diagnosis Blood in stool, gustavo Blood in stool Gastroesophageal reflux disease without esophagitis Esophageal reflux Diarrhea, unspecified type Abdominal cramping Abdominal pain, unspecified site documented in this encounter [employer] Phone: Assessments Diagnosis Need for varicella vaccine Need for prophylactic vaccination and inoculation against varicella Advance Directives No Advanced Directives Records FoundDocuments on File Type Date Recorded 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 Advance Directives and Living Will 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 of 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 Rock 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 Documents on File Type Date Recorded 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 ACP-Advance Directive ACP-Power of [employer]er Summary Purpose Family History No Family History Records FoundNo Family History Records Found Additional Source Comments Care Teams (unrecognized sec tion and content) Busher Helper Relationship Specialty Start Date End Date 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, ORTHODONTIST - [facility] [address] [place] [address] PCP - General Nurse Practitioner 11/23/16 INFORMATION SOURCE (unrecogn ized section and content) DATE CREATED AUTHOR 06/02/2023 Rachel allen DATE CREATED AUTHOR AUTHOR'S CHARLIE GAGNON 11/01/2023 [facility] EPIC FOR RECORDS PERTAINING TO PATIENTS [...] BE BASED ON THE PRIMARY CLINICAL RECORDS. [employer] provides no warranty or guarantee of the accuracy or completeness of information in this document.
[2023-11-04 09:13] VITALS: BP 130/66; PULSE 92
--- NOTE | 2023-11-04 09:28 | US_ITS ---
[address] [address] Patient Name: DANIEL ARMENDARIZ MRN: [id number] date: 2000 Sex: F Assigned Patient Location: 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 BREATHING MOVEMENTS: 2.0 GROSS BODY MOVEMENTS: 2.0 TONE: 2.0 QUALITATIVE AMNIOTIC FLUID VOLUME: 2.0 PRESENTATION: CEPHALIC HEART RATE: 132.4 bpm bpm. AMNIOTIC FLUID VOLUME: 20.3 cm GESTATIONAL AGE: 37 weeks 0 days CONCLUSION: Total biophysical profile score 8.0. Electronically authenticated by: RAMA BOWMAN Date: 11/06/2023 08:03
== END 2023-11-04 10:10 | disposition home or self-care (01) ==
LOC: US 01:43 → FBC 09:02
PROVIDERS: Visit Provider Obstetrics & Gynecology
DX: O99.280 Endocrine, nutritional and metabolic diseases complicating pregnancy, unspecified trimester (principal); E05.90 Thyrotoxicosis, unspecified without thyrotoxic crisis or storm; Z3A.37 37 weeks gestation of pregnancy
CPT/HCPCS: 76818

== ENCOUNTER 2023-11-06 08:23 | Outpatient (OUT) | payer BC, OTHER, SELFPAY ==
--- NOTE | 2023-11-06 08:26 | US_ITS ---
[address] [address] Patient Name: DANIEL ARMENDARIZ MRN: [id number] date: 2000 Sex: F Assigned Patient Location: [facility] Current Patient Location: [facility] Accession/Order Number: [id number] Exam Date: 11/06/2023 08:26 Report Date: 11/06/2023 10:28 At the request of: NAHED SALINAS Procedure: US OB growth EXAMINATION: US OB growth HISTORY: LGA ; large for gestational age COMPARISON: ULTRASOUND OB GROWTH 10/09/2023 FINDINGS: Heart Rate: 150.0 bpm Number: 1.0 Position: CEPHALIC Amniotic Fluid Volume: 19.6 cm Maximum Vertical Pocket: 6.4 cm BIOMETRY: BPD: 9.0 cm cm; 36 weeks 3 days; 44% HC: 33.7 cmcm; 38 weeks 4 days ; 58% AC: 32.8 cm cm; 36 weeks 5 days; 48% FL: 7.2 cm cm; 36 weeks 5 days; 34% % EFW: 3056.4 grams; 47% FL/AC: 21.8 FL/BPD: 79.6 HC/AC: 1.0 GESTATIONAL AGE: Age by EDC: 37 weeks 2 days ANTONIO by EDC: 11/25/2023 Age by US: 36 weeks 6 days ANTONIO by US: 11/28/2023 US/US OB growth IMPRESSION: 1. Single live intrauterine with growth detailed above. Electronically authenticated by: RAMA BOWMAN Date: 11/06/2023 10:28
--- OUTSIDE RECORDS SUMMARY | 2023-11-06 08:37 | XMS_ITS | CCD ---
Author Organization [facility] Care Team Providers Care Fitter Machinist Name Role Phone 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 Primary Care [...] Abs. Basophil 0.01 k/uL Normal 0.00-0.20 [facility] Comment on above: Performed By: #### C DP, CP #### [facility] [address] [place] [address] Director Of Purchasing: Mike Forde MD Abs.Imm.Granulocyte 0.01 k/uL Normal 0.00-0.30 [facility] Comment on above: Performed By: #### C DP, CP #### [facility] [address] [place] [address] Director Of Purchasing: Mike Forde MD Abs.Neutrophil (Seg) 6.24 k/uL Normal 2.5-7.0 [facility] Comment on above: Performed By: #### C DP, CP #### [facility] [address] [place] [address] Director Of Purchasing: Mike Forde MD Basophils/100 WBC (Bld) 0 % Normal 0-2 [facility] Comment on above: Performed By: #### C DP, CP #### [facility] [address] [place] [address] Director Of Purchasing: Mike Forde MD Eosinophils (Bld) [#/Vol] 0.00 10*3/uL Normal 0.00-0.40 [facility] Comment on above: Performed By: #### C DP, CP #### [facility] [address] [place] [id number] Director Of Purchasing: Mike Forde MD Eosinophils/100 WBC (Bld) 0 % Normal 0-5 [facility] Comment on above: Performed By: #### C DP, CP #### [facility] [address] [place], [place] [phone] Director Of Purchasing: Mike Forde MD Erythrocyte distribution width (RBC) [Ratio] 11.9 % Low 12.1-15.2 [facility] Comment on above: Performed By: #### C DP, CP #### [facility] [address] [place] [phone] Director Of Purchasing: Mike Forde MD Hematocrit (Bld) [Volume fraction] 41.1 % Normal 36.0-46.0 [facility] Comment on above: Performed By: #### C DP, CP #### [facility] [address] [place] [address] Director Of Purchasing: Mike Forde MD Hemoglobin (Bld) [Mass/Vol] 14.5 g/dL Normal 12.0-16.0 [facility] Comment on above: Performed By: #### C DP, CP #### [facility] [address] [place] [phone] Director Of Purchasing: Mike Forde MD Immature granulocytes/100 WBC (Bld) 0 % Normal 0-5 [facility] Comment on above: Performed By: #### C DP, CP #### [facility] [address] [place] [phone] Director Of Purchasing: Mike Forde MD Lymphocytes (Bld) [#/Vol] 1.74 10*3/uL Normal 1.00-4.80 [facility] Comment on above: Performed By: #### C DP, CP #### [facility] [address] [place], [place] [id number] Director Of Purchasing: Mike Forde MD Lymphocytes/100 WBC (Bld) 21 % Normal 15-40 [facility] Comment on above: Performed By: #### C DP, CP #### [facility] [address] [place] [address] Director Of Purchasing: Mike Forde MD MCH (RBC) [Entitic mass] 29.2 pg Normal 26.0-34.0 [facility] Comment on above: Performed By: #### C DP, CP #### [facility] [address] [place] [address] Director Of Purchasing: Mike Forde MD MCHC (RBC) [Mass/Vol] 35.3 g/dL Normal 31.0-37.0 [facility] Comment on above: Performed By: #### C DP, CP #### [facility] [address] [place] [address] Director Of Purchasing: Mike Forde MD MCV (RBC) [Entitic vol] 82.9 fL Normal 80.0-100.0 [facility] Comment on above: Performed By: #### C DP, CP #### [facility] [address] [place] [address] Director Of Purchasing: Mike Forde MD Monocytes (Bld) [#/Vol] 0.50 10*3/uL Normal 0.00-1.00 [facility] Comment on above: Performed By: #### C DP, CP #### [facility] [address] [place] [address] Director Of Purchasing: Mike Forde MD Monocytes/100 WBC (Bld) 6 % Normal 4-8 [facility] Comment on above: Performed By: #### C DP, CP #### [facility] [address] [place] [address] Director Of Purchasing: Mike Forde MD Neutrophil (Seg) 73 % Normal 47-75 [facility] Comment on above: Performed By: #### C DP, CP #### [facility] [address] [place] [address] Director Of Purchasing: Mike Forde MD Platelet mean volume (Bld) [Entitic vol] 10.4 fL Normal 6.0-12.0 [facility] Comment on above: Performed By: #### C DP, CP #### [facility] [address] [place], [place] [phone] Director Of Purchasing: Mike Forde MD Platelets (Bld) [#/Vol] 227 10*3/uL Normal 140-450 [facility] Comment on above: Performed By: #### C DP, CP #### [facility] [address] [place], [place] [phone] Director Of Purchasing: Mike Forde MD RBC (Bld) [#/Vol] 4.96 10*6/uL Normal 4.00-5.20 [facility] Comment on above: Performed By: #### C DP, CP #### [facility] [address] [place], [place] [phone] Director Of Purchasing: Mike Forde MD WBC (Bld) [#/Vol] 8.5 10*3/uL Normal 3.5-11.0 [facility] Comment on above: Performed By: #### C DP, CP #### [facility] [address] [place], [place] [phone] Director Of Purchasing: Mike Forde MD Comp Metabolic Profon 2022 Albumin [Mass/Vol] 4.2 g/dL Normal 3.5-5.2 [facility] Comment on above: Performed By: #### C DP, CP #### [facility] [address] [place] [address] Director Of Purchasing: Mike Forde MD Alkaline Phos 48 U/L Normal 35-104 [facility] Comment on above: Performed By: #### C DP, CP #### [facility] [address] [place], [place] [phone] Director Of Purchasing: Mike Forde MD ALT [Catalytic activity/Vol] 12 U/L Normal 5-33 [facility] Comment on above: Performed By: #### C DP, CP #### [facility] [address] [place], [place] [id number] Director Of Purchasing: Mike Forde MD Anion gap [Moles/Vol] 15 mmol/L Normal 9-17 [facility] Comment on above: Performed By: #### C DP, CP #### [facility] [address] [place], [place] [phone] Director Of Purchasing: Mike Forde MD AST [Catalytic activity/Vol] 11 U/L Normal <32 [facility] Comment on above: Performed By: #### C DP, CP #### [facility] [address] [place], [place] [phone] Director Of Purchasing: Mike Forde MD Bilirubin [Mass/Vol] mg/dL Low 0.3-1.2 [facility] Comment on above: Performed By: #### C DP, CP #### [facility] [address] [place], [place] [phone] Director Of Purchasing: Mike Forde MD BUN/CRE Ratio 14 Normal 9-20 [facility] Comment on above: Performed By: #### C DP, CP #### [facility] [address] [place], [place] [id number] Director Of Purchasing: Mike Forde MD Calcium [Mass/Vol] 9.7 mg/dL Normal 8.6-10.4 [facility] Comment on above: Performed By: #### C DP, CP #### [facility] [address] [place], [place] [phone] Director Of Purchasing: Mike Forde MD Chloride [Moles/Vol] 101 mmol/L Normal 98-107 [facility] Comment on above: Performed By: #### C DP, CP #### [facility] [address] [place], [place] [phone] Director Of Purchasing: Mike Forde MD CO2 [Moles/Vol] 22 mmol/L Normal 20-31 [facility] Comment on above: Performed By: #### C DP, CP #### [facility] [address] [place] [address] Director Of Purchasing: Mike Forde MD Creatinine [Mass/Vol] 0.5 mg/dL Normal 0.5-0.9 [facility] Comment on above: Performed By: #### C DP, CP #### [facility] [address] [place] [address] Director Of Purchasing: Mike Forde MD GFR/1.73 sq M.predicted among non-blacks MDRD (S/P/Bld) [Vol rate/Area] mL/min/{1.73_m2} Normal >60 [facility] Comment on above: Result Comment: [...] Performed By: #### C DP, CP #### [facility] [address] [place] [address] Director Of Purchasing: Mike Forde MD Glucose [Mass/Vol] 90 mg/dL Normal 70-99 [facility] Comment on above: Performed By: #### C DP, CP #### [facility] [address] [place] [phone] Director Of Purchasing: Mike Forde MD Potassium [Moles/Vol] 3.5 mmol/L Low 3.7-5.3 [facility] Comment on above: Performed By: #### C DP, CP #### [facility] [address] [place], [place] [phone] Director Of Purchasing: Mike Forde MD Protein [Mass/Vol] 7.5 g/dL Normal 6.4-8.3 [facility] Comment on above: Performed By: #### C DP, CP #### [facility] [address] [place], [place] [phone] Director Of Purchasing: iMke Forde MD Sodium [Moles/Vol] 138 mmol/L Normal 135-144 [facility] Comment on above: Performed By: #### C DP, CP #### [facility] [address] [place], [place] [phone] Director Of Purchasing: Mike Forde MD Urea nitrogen [Mass/Vol] 7 mg/dL Normal 6-20 [facility] Comment on above: Performed By: #### C DP, CP #### [facility] [address] [place] [address] Director Of Purchasing: Mike Forde MD Basic Metabolic Profon 04-16 Anion gap [Moles/Vol] 15 mmol/L Normal 9-17 [facility] Comment on above: Performed By: #### C DP, BMP #### [facility] [address] [place], [place] [phone] Director Of Purchasing: Mike Forde MD BUN/CRE Ratio 10 Normal 9-20 [facility] Comment on above: Performed By: #### C DP, BMP #### [facility] [address] [place], [place] [phone] Director Of Purchasing: Mike Forde MD Calcium [Mass/Vol] 10.2 mg/dL Normal 8.6-10.4 [facility] Comment on above: Performed By: #### C DP, BMP #### [facility] [address] [place], [place] [phone] Director Of Purchasing: Mike Forde MD Chloride [Moles/Vol] 98 mmol/L Normal 98-107 [facility] Comment on above: Performed By: #### C DP, BMP #### [facility] [address] [place], [place] [phone] Director Of Purchasing: Mike Forde MD CO2 [Moles/Vol] 22 mmol/L Normal 20-31 [facility] Comment on above: Performed By: #### C DP, BMP #### [facility] [address] [place], [place] [phone] Director Of Purchasing: Mike Forde MD Creatinine [Mass/Vol] 0.7 mg/dL Normal 0.5-0.9 [facility] Comment on above: Performed By: #### C DP, BMP #### [facility] [address] [place] [address] Director Of Purchasing: Mike Forde MD GFR/1.73 sq M.predicted among non-blacks MDRD (S/P/Bld) [Vol rate/Area] mL/min/{1.73_m2} Normal >60 [facility] Comment on above: Result Comment: [...] Performed By: #### C DP, BMP #### [facility] [address] [place] [address] Director Of Purchasing: Mike Forde MD Glucose [Mass/Vol] 113 mg/dL High 70-99 [facility] Comment on above: Performed By: #### C DP, BMP #### [facility] [address] [place], [place] [phone] Director Of Purchasing: Mike Forde MD Potassium [Moles/Vol] 3.4 mmol/L Low 3.7-5.3 [facility] Comment on above: Performed By: #### C DP, BMP #### [facility] [address] [place] [address] Director Of Purchasing: Mike Forde MD Sodium [Moles/Vol] 135 mmol/L Normal 135-144 [facility] Comment on above: Performed By: #### C DP, BMP #### [facility] [address] [place] [phone] Director Of Purchasing: Mike Forde MD Urea nitrogen [Mass/Vol] 7 mg/dL Normal 6-20 [facility] Comment on above: Performed By: #### C DP, BMP #### [facility] [address] [place] [address] Director Of Purchasing: Mike Forde MD CBC with Diffon 04-16-2023 Abs. Basophil 0.03 k/uL Normal 0.00-0.20 [facility] Comment on above: Performed By: #### C DP, BMP #### [facility] [address] [place] [phone] Director Of Purchasing: Mike Forde MD Abs.Imm.Granulocyte 0.02 k/uL Normal 0.00-0.30 [facility] Comment on above: Performed By: #### C DP, BMP #### [facility] [address] [place] [phone] Director Of Purchasing: Miek Forde MD Abs.Neutrophil (Seg) 7.51 k/uL High 2.5-7.0 [facility] Comment on above: Performed By: #### C DP, BMP #### [facility] [address] [place] [address] Director Of Purchasing: Mike Forde MD Basophils/100 WBC (Bld) 0 % Normal 0-2 [facility] Comment on above: Performed By: #### C DP, BMP #### [facility] [address] [place] [phone] Director Of Purchasing: Mike Forde MD Eosinophils (Bld) [#/Vol] 0.03 10*3/uL Normal 0.00-0.40 [facility] Comment on above: Performed By: #### C DP, BMP #### [facility] [address] [place], [place] [phone] Director Of Purchasing: Mike Forde MD Eosinophils/100 WBC (Bld) 0 % Normal 0-5 [facility] Comment on above: Performed By: #### C DP, BMP #### [facility] [address] [place] [phone] Director Of Purchasing: Mike Forde MD Erythrocyte distribution width (RBC) [Ratio] 11.8 % Low 12.1-15.2 [facility] Comment on above: Performed By: #### C DP, BMP #### [facility] [address] [place] [phone] Director Of Purchasing: Mike Forde MD Hematocrit (Bld) [Volume fraction] 43.4 % Normal 36.0-46.0 [facility] Comment on above: Performed By: #### C DP, BMP #### [facility] [address] [place] [phone] Director Of Purchasing: Mike Forde MD Hemoglobin (Bld) [Mass/Vol] 15.5 g/dL Normal 12.0-16.0 [facility] Comment on above: Performed By: #### C DP, BMP #### [facility] [address] [place] [address] Director Of Purchasing: Mike Forde MD Immature granulocytes/100 WBC (Bld) 0 % Normal 0-5 [facility] Comment on above: Performed By: #### C DP, BMP #### [facility] [address] [place], [place] [phone] Director Of Purchasing: Mike Forde MD Lymphocytes (Bld) [#/Vol] 2.33 10*3/uL Normal 1.00-4.80 [facility] Comment on above: Performed By: #### C DP, BMP #### [facility] [address] [place] [address] Director Of Purchasing: Mike Forde MD Lymphocytes/100 WBC (Bld) 22 % Normal 15-40 [facility] Comment on above: Performed By: #### C DP, BMP #### [facility] [address] [place] [address] Director Of Purchasing: Mike Forde MD MCH (RBC) [Entitic mass] 28.9 pg Normal 26.0-34.0 [facility] Comment on above: Performed By: #### C DP, BMP #### [facility] [address] [place] [address] Director Of Purchasing: Mike Forde MD MCHC (RBC) [Mass/Vol] 35.7 g/dL Normal 31.0-37.0 [facility] Comment on above: Performed By: #### C DP, BMP #### [facility] [address] [place] [address] Director Of Purchasing: Mike Forde MD MCV (RBC) [Entitic vol] 80.8 fL Normal 80.0-100.0 [facility] Comment on above: Performed By: #### C DP, BMP #### [facility] [address] [place] [phone] Director Of Purchasing: Mike Forde MD Monocytes (Bld) [#/Vol] 0.88 10*3/uL Normal 0.00-1.00 [facility] Comment on above: Performed By: #### C DP, BMP #### [facility] [address] [place] [address] Director Of Purchasing: Mike Forde MD Monocytes/100 WBC (Bld) 8 % Normal 4-8 [facility] Comment on above: Performed By: #### C DP, BMP #### [facility] [address] [place] [address] [phone] Director Of Purchasing: Mike Forde MD Neutrophil (Seg) 70 % Normal 47-75 [facility] Comment on above: Performed By: #### C DP, BMP #### [facility] [address] [place] [address] ([phone] Director Of Purchasing: Mike Forde MD Platelet mean volume (Bld) [Entitic vol] 10.5 fL Normal 6.0-12.0 [facility] Comment on above: Performed By: #### C DP, BMP #### [facility] [address] [place] [address] ([phone] Director Of Purchasing: Mike Forde MD Platelets (Bld) [#/Vol] 279 10*3/uL Normal 140-450 [facility] Comment on above: Performed By: #### C DP, BMP #### [facility] [address] [place] [address] ([phone] Director Of Purchasing: Mike Forde MD RBC (Bld) [#/Vol] 5.37 10*6/uL High 4.00-5.20 [facility] Comment on above: Performed By: #### C DP, BMP #### [facility] [address] [place] [phone] ([phone] Director Of Purchasing: Mike Forde MD WBC (Bld) [#/Vol] 10.8 10*3/uL Normal 3.5-11.0 [facility] Comment on above: Performed By: #### C DP, BMP #### [facility] [address] [place] [address] ([phone] Director Of Purchasing: Mike Forde MD CBC with Auto Differentialon 12-13-2021 Absolute Eos # 0.00 [facility] Absolute Lymph # 1.90 [facility] Absolute [place] # 0.50 [facility] Basophils (Bld) [#/Vol] 0.00 10*3/uL [facility] Basophils/100 WBC (Bld) 0 % 0 - 2 % [facility] Differential Type YES [facility] Eosinophils/100 WBC (Bld) 0 % 0 - 5 % [facility] Hematocrit (Bld) [Volume fraction] 43.5 % 36 - 46 % [facility] Hemoglobin (Bld) [Mass/Vol] 14.6 g/dL 12.0 - 16.0 g/dL [facility] Lymphocytes/100 WBC (Bld) 21 % 15 - 40 % [facility] MCH (RBC) [Entitic mass] 28.9 pg 26 - 34 pg [facility] MCHC (RBC) [Mass/Vol] 33.5 g/dL 31 - 37 g/dL [facility] MCV (RBC) [Entitic vol] 86.2 fL 80 - 100 fL [facility] Monocytes/100 WBC (Bld) 5 % 4 - 8 % [facility] Platelet distribution width (Bld) [Ratio] 12.3 % 12.1 - 15.2 % [facility] Platelets (Bld) [#/Vol] 265 10*3/uL [facility] RBC (Bld) [#/Vol] 5.05 10*6/uL 4.0 - 5.2 m/uL [facility] Segmented neutrophils/100 WBC (Bld) 74 % 47 - 75 % [facility] Segs Absolute 6.60 [facility] WBC (Bld) [#/Vol] 9.1 10*3/uL [facility] Comprehensive Metabolic Pane davi 12-13-2021 Albumin [Mass/Vol] 4.3 g/dL 3.5 - 5.2 g/dL [facility] ALP (Bld) [Catalytic activity/Vol] 77 U/L 35 - 104 U/L [facility] ALT [Catalytic activity/Vol] 23 U/L 5 - 33 U/L [facility] Anion gap [Moles/Vol] 11 mmol/L 9 - 17 mmol/L [facility] AST [Catalytic activity/Vol] 15 U/L <32 [facility] Bilirubin [Mass/Vol] 0.51 mg/dL 0.30 - 1.20 mg/dL [facility] Calcium [Mass/Vol] 9.6 mg/dL 8.6 - 10.4 mg/dL [facility] Chloride [Moles/Vol] 102 mmol/L 98 - 107 mmol/L [facility] CO2 [Moles/Vol] 25 mmol/L 20 - 31 mmol/L [facility] Creatinine [Mass/Vol] 0.77 mg/dL 0.50 - 0.90 mg/dL [facility] Free PSA/Total PSA [Mass fraction] 7.4 g/dL 6.4 - 8.3 g/dL [facility] GFR >60 >60 mL/min [facility] GFR Non- >60 >60 mL/min [facility] GFR/1.73 sq M.predicted MDRD (S/P/Bld) [Vol rate/Area] [facility] Comment on above: Average GFR for 20-2 9 years old: 116 mL/min/1.73sq m Chronic Kidney Disease: <60 mL/min/1.73sq m Kidney failure: <15 mL/min/1.73sq m eGFR calculated using average adult body mass. Additional eGFR calculator available at: http://www.[employer]/multiple_crcl_2012.htm Glucose [Mass/Vol] 93 mg/dL 70 - 99 mg/dL [facility] Potassium [Moles/Vol] 4.2 mmol/L 3.7 - 5.3 mmol /L [facility] Sodium [Moles/Vol] 138 mmol/L 135 - 144 mmol/L [facility] Urea nitrogen (BldV) [Mass/Vol] 9 mg/dL 6 - 20 mg/dL [facility] Urea nitrogen/Creatinine (Bld) [Mass ratio] 12 CENTRA [...] 05-30-2023 End: 05-31-2023 [facility] Start: 04-16-2023 End: 04-17-2023 [facility] Start: 12-13-2021 End: 12-13-2021 Subsequent hospital visit by physician Arpit Leblanc CNP Work Phone: [facility] Comment on above: Blood in stool, zeina k; Gastroesophageal reflux disease without esophagitis; Diarrhea, unspecified type; Abdominal cramping Start: 03-01-2019 End: 03-01-2019 Subsequent hospital visit by physician 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 [facility] Comment on above: Need for varicella v accine Procedures Date Procedure Procedure Detail Performing Clinician Start: 12-13-2021 Comprehensive metabo lic panel Arpit Leblanc CNP Work Phone: Plan of Treatment Date Care Activity Detail Author Start: 11-26-2029 DTaP/Tdap/Td vaccine (3 - Td or Tdap) DTaP/Tdap/Td vaccine (3 - Td or Tdap) [facility] Start: 12-13-2022 Depression Screen Depression Screen [facility] Start: 03-14-2022 COVID-19 Vaccine (3 - Booster for Pfizer series) COVID-19 Vaccine (3 - Booster for Pfizer series) [facility] Start: 03-10-2022 Influenza vaccination Flu vaccine (S angelo Ended) [facility] Start: 01-11-2022 End: 01-11-2022 Patient encounter procedure 01/11/2022 Office Visit Family Medicine 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, [employer] [facility] [address] [place] [address] [facility] Start: 2019 Screening for malign ant neoplasm of cervix Pap smear [facility] Start: 03-10-2019 Influenza vaccination Flu vaccine (# 1) [place], [place] Start: 2017 DTaP/Tdap/Td vaccine (1 - Tdap) DTaP/Tdap/Td vaccine (1 - Tdap) [place] Start: 2016 Hepatitis C screening Hepatitis C sc reen [facility] Start: 2014 Chlamydia screen Chlamydia screen [place], [place] Start: 2014 Screening for Chlamy nathalie trachomatis Chlamydia screen [facility] Start: 2013 HIV screen HIV screen [place], [place] Start: 2013 HIV screening HIV screen [facility] Start: 2013 HPV vaccine (1 - Fem dana 3-dose series) HPV vaccine (1 - Female 3-dose series) [place], [place] Start: 2011 Varicella Vaccine (1 of 2 - 13+ 2-dose series) Varicella Vaccine (1 of 2 - 13+ 2-dose series) [place] Start: 2009 HPV vaccine (1 - 2-d ose series) HPV vaccine (1 - 2-dose series) [facility] Start: 1999 Varicella vaccine (1 of 2 - 2-dose childhood series) Varicella vaccine (1 of 2 - 2-dose childhood series) [facility] End: 12-13-2021 CBC W Auto Differential panel - Blood CBC with Auto Differential Lab Routine Diarrhea, unspecified type Blood in stool, gustavo 1 Occurrences starting 12/13/2021 until 12/13/2021 [facility] Work Phone: Comment on above: 1 Occurrences starti ng 12/13/2021 until 12/13/2021 End: 12-13-2021 Celiac Disease Panel Celiac Disease Panel Lab Routine Diarrhea, unspecified type Abdominal cramping 1 Occurrences starting 12/13/2021 until 12/13/2021 [facility] Phone: Comment on above: 1 Occurrences starti ng 12/13/2021 until 12/13/2021 End: 12-13-2021 Celiac Plus [facility] Phone: Comment on above: Once for 1 Occurrenc es starting 12/13/2021 until 12/13/2021 End: 12-13-2021 Comprehensive metabolic 2000 panel - Serum or Plasma Comprehensive Metabolic Panel Lab Routine Blood in stool, gustavo Gastroesophageal reflux disease without esophagitis 1 Occurrences starting 12/13/2021 until 12/13/2021 [employer]: Comment on above: 1 Occurrences starti ng 12/13/2021 until 12/13/2021 End: 03-01-2019 Varicella Zoster Antibody, IgG Varicella Zoster Antibody, IgG Lab Routine Need for varicella vaccine 1 Occurrences starting 03/01/2019 until 03/01/2019 [place], [place] Comment on above: 1 Occurrences starti ng 03/01/2019 until 03/01/2019 Varicella Zoster Antibody, IgG Varicella Zoster Antibody, IgG Lab Routine Need for varicella vaccine 03/01/2019 11:50 AM EDT [place] Immunizations Immunization Date Immunization Notes Care Provider Rohit mcnally 09-18-2021 COVID-19, Pfizer Pur ple top, DILUTE for use, 12+ yrs, 30mcg/0.3mL dose Aript Parekh [employer] OPERATOR - [employer] Work Phone: [facility] Phone: 11-27-2019 Hepatitis B vaccine (recombinant), CpG adjuvanted Arpit Parekh [employer]ITYPE OPERATOR - [employer] Work Phone: [employer] Work Phone: 11-27-2019 tetanus toxoid, redu gordon diphtheria toxoid, and acellular pertussis vaccine, adsorbed Arpit Parekh VARITYPE OPERATOR - [facility] Work Phone: [facility] [employer] Work Phone: 03-27-2019 hepatitis B vaccine, adult dosage [facility] Work Phone: [facility] [employer] Work Phone: 03-27-2019 measles, mumps and rubella virus vaccine Arpit Parekh [facility] Work Phone: [facility] [employer] Work Phone: 03-03-2019 measles, mumps and rubella virus vaccine Arpit Parekh [facility] - [facility] Work Phone: [facility] [employer] Work Phone: 02-25-2019 hepatitis B vaccine, adult dosage Arpit Parekh [facility] Payers Date Payer Category Payer Unknown [id number] 2022 Private Health Insurance [id number] 2018 Unknown BCBS [place] - [place] P PO xxxxxxxxxxxx 2018-Present [address] [place] [address] xxxxxxxxxxxx [id number] 2018 Unknown [id number] 1998 Unknown [id number] [id number] .174 1998 Unknown [id number] [id number] .174 1998 Unknown [id number] [id number] .1259 1998 Unknown [id number] [id number] .1259 1998 Unknown [id number] 2.16.840.1.996273.3.579.2 .9 1998 Unknown [id number] [id number] .9 1998 Unknown [id number] 2.16.840.1.403934.3.579.2 .9 1998 Unknown [id number] 2.16.840.1.479894.3.579.2 .9 1998 Unknown [id number] [id number] .9 1998 Unknown [id number] [id number] .9 Social History Date Type Detail Facility Start: 04-25-2016 End: 11-26-2018 Tobacco smoking status NHIS Never smoker [place] Start: 11-26-2018 [facility] [place] [place] Start: 2000 Sex Assigned At Not on file [facility] [place] Start: 04-25-2016 Tobacco use and exposure Smokeless tobacco non-user [employer] Phone: Start: 12-13-2021 Alcohol intake 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) [employer] Phone: Start: 12-13-2021 History SDOH Financial 5 [employer] Phone: Start: 12-13-2021 History 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 1 [facility] Phone: Evaluation note Note Date & Type Note Facility Evaluation note Diagnosis Blood in stool, gustavo Blood in stool Gastroesophageal reflux disease without esophagitis Esophageal reflux Diarrhea, unspecified type Abdominal cramping Abdominal pain, unspecified site documented in this encounter [facility] Phone: Assessments Diagnosis Need for varicella vaccine Need for prophylactic vaccination and inoculation against varicella Advance Directives No Advanced Directives Records FoundDocuments on File Type Date Recorded Patient Welfare Adviser Expl anation Advance Directives and Living Will Power of Bottom Bleacher Documents on File Type Date Recorded Patient Welfare Adviser Expl anation ACP-Advance Directive ACP-Power of Bottom Bleacher Summary Purpose Family History No Family History Records FoundNo Family History Records Found Additional Source Comments Care Teams (unrecognized sec tion and content) Fitter Machinist Relationship Specialty Start Date End Date Arpit Parekh, VARITYPE OPERATOR - [employer] [address] [place] [id number] PCP - General Nurse Practitioner 11/23/16 INFORMATION SOURCE (unrecogn ized section and content) DATE CREATED AUTHOR 06/02/2023 Rachel allen DATE CREATED AUTHOR AUTHOR'S CHARLIE GAGNON 11/01/2023 [facility] EPIC FOR RECORDS PERTAINING TO PATIENTS [...] BE BASED ON THE PRIMARY CLINICAL RECORDS. [employer] provides no warranty or guarantee of the accuracy or completeness of information in this document.
== END 2023-11-06 08:24 | disposition home or self-care (01) ==
LOC: NOMS 08:24
PROVIDERS: Visit Provider Obstetrics & Gynecology
DX: O36.63X0 Maternal care for excessive fetal growth, third trimester, not applicable or unspecified (principal); Z3A.36 36 weeks gestation of pregnancy
CPT/HCPCS: 76816

== ENCOUNTER 2023-11-08 07:14 | Outpatient (OUT) | payer BC, OTHER, SELFPAY ==
--- OUTSIDE RECORDS SUMMARY | 2023-11-08 07:18 | XMS_ITS | CCD ---
Author Organization [facility] Care Team Providers Care Varying Exceptionalities Teacher Name Role Phone Arpit Parekh Primary Care Provider TERRENCE WOLF Attending Unavailable ARPIT PAREKH Primary Care Unavailable ARPIT PAREKH Primary Care Unavailable WILLIAM WHITAKER Attending Unavailable ASTON, ALICIA Attending Unavailable RITA, NAHED Attending Unavailable ALICIA [...] 05-30-2023 Abs. Basophil 0.01 k/uL Normal 0.00-0.20 [facility] Comment on above: Performed By: #### C DP, CP #### [facility] [address] [place] [address] Phd Intern: Mike Forde MD Abs.Imm.Granulocyte 0.01 k/uL Normal 0.00-0.30 [facility] Comment on above: Performed By: #### C DP, CP #### [facility] [address] [place] [address] Phd Intern: Mike Forde MD Abs.Neutrophil (Seg) 6.24 k/uL Normal 2.5-7.0 [facility] Comment on above: Performed By: #### C DP, CP #### [facility] [address] [place] [address] Phd Intern: Mike Forde MD Basophils/100 WBC (Bld) 0 % Normal 0-2 [facility] Comment on above: Performed By: #### C DP, CP #### [facility] [address] [place] [address] Phd Intern: Mike Forde MD Eosinophils (Bld) [#/Vol] 0.00 10*3/uL Normal 0.00-0.40 [facility] Comment on above: Performed By: #### C DP, CP #### [facility] [address] [place] [address] Phd Intern: Mike Forde MD Eosinophils/100 WBC (Bld) 0 % Normal 0-5 [facility] Comment on above: Performed By: #### C DP, CP #### [facility] [address] [place], [place] [id number] Phd Intern: Mike Forde MD Erythrocyte distribution width (RBC) [Ratio] 11.9 % Low 12.1-15.2 [facility] Comment on above: Performed By: #### C DP, CP #### [facility] [address] [place], [place] [id number] Phd Intern: Mike Forde MD Hematocrit (Bld) [Volume fraction] 41.1 % Normal 36.0-46.0 [facility] Comment on above: Performed By: #### C DP, CP #### [facility] [address] [place] [address] Phd Intern: Mike Forde MD Hemoglobin (Bld) [Mass/Vol] 14.5 g/dL Normal 12.0-16.0 [facility] Comment on above: Performed By: #### C DP, CP #### [facility] [address] [place] [address] Phd Intern: Mike Forde MD Immature granulocytes/100 WBC (Bld) 0 % Normal 0-5 [facility] Comment on above: Performed By: #### C DP, CP #### [facility] [address] [place], [place] [phone] Phd Intern: Mike Forde MD Lymphocytes (Bld) [#/Vol] 1.74 10*3/uL Normal 1.00-4.80 [facility] Comment on above: Performed By: #### C DP, CP #### [facility] [address] [place] [address] Phd Intern: Mike Forde MD Lymphocytes/100 WBC (Bld) 21 % Normal 15-40 [facility] Comment on above: Performed By: #### C DP, CP #### [facility] [address] [place] [address] Phd Intern: Mike Forde MD MCH (RBC) [Entitic mass] 29.2 pg Normal 26.0-34.0 [facility] Comment on above: Performed By: #### C DP, CP #### [facility] [address] [place] [address] Phd Intern: Mike Forde MD MCHC (RBC) [Mass/Vol] 35.3 g/dL Normal 31.0-37.0 [facility] Comment on above: Performed By: #### C DP, CP #### [facility] [address] [place] [address] Phd Intern: Mike Forde MD MCV (RBC) [Entitic vol] 82.9 fL Normal 80.0-100.0 [facility] Comment on above: Performed By: #### C DP, CP #### [facility] [address] [place] [address] Phd Intern: Mike Forde MD Monocytes (Bld) [#/Vol] 0.50 10*3/uL Normal 0.00-1.00 [facility] Comment on above: Performed By: #### C DP, CP #### [facility] [address] [place] [address] Phd Intern: Mike Forde MD Monocytes/100 WBC (Bld) 6 % Normal 4-8 [facility] Comment on above: Performed By: #### C DP, CP #### [facility] [address] [place] [address] Phd Intern: Mike Forde MD Neutrophil (Seg) 73 % Normal 47-75 [facility] Comment on above: Performed By: #### C DP, CP #### [facility] [address] [place], [place] [phone] Phd Intern: Mike Forde MD Platelet mean volume (Bld) [Entitic vol] 10.4 fL Normal 6.0-12.0 [facility] Comment on above: Performed By: #### C DP, CP #### [facility] [address] [place], [place] [phone] (528) Phd Intern: Mike Forde MD Platelets (Bld) [#/Vol] 227 10*3/uL Normal 140-450 [facility] Comment on above: Performed By: #### C DP, CP #### [facility] [address] [place], [place] [phone] (741) Phd Intern: Mike Forde MD RBC (Bld) [#/Vol] 4.96 10*6/uL Normal 4.00-5.20 [facility] Comment on above: Performed By: #### C DP, CP #### [facility] [address] [place], [place] [id number] Phd Intern: Mike Forde MD WBC (Bld) [#/Vol] 8.5 10*3/uL Normal 3.5-11.0 [facility] Comment on above: Performed By: #### C DP, CP #### [facility] [address] [place], [place] [phone] Phd Intern: Mike Forde MD Comp Metabolic Profon 2022 Albumin [Mass/Vol] 4.2 g/dL Normal 3.5-5.2 [facility] Comment on above: Performed By: #### C DP, CP #### [facility] [address] [place] [address] Phd Intern: Mike Forde MD Alkaline Phos 48 U/L Normal 35-104 [facility] Comment on above: Performed By: #### C DP, CP #### [facility] [address] [place] [address] Phd Intern: Mike Forde MD ALT [Catalytic activity/Vol] 12 U/L Normal 5-33 [facility] Comment on above: Performed By: #### C DP, CP #### [facility] [address] [place], [place] [id number] Phd Intern: Mike Forde MD Anion gap [Moles/Vol] 15 mmol/L Normal 9-17 [facility] Comment on above: Performed By: #### C DP, CP #### [facility] [address] [place], [place] [id number] Phd Intern: Mike Forde MD AST [Catalytic activity/Vol] 11 U/L Normal <32 [facility] Comment on above: Performed By: #### C DP, CP #### [facility] [address] [place] [address] Phd Intern: Mike Forde MD Bilirubin [Mass/Vol] mg/dL Low 0.3-1.2 [facility] Comment on above: Performed By: #### C DP, CP #### [facility] [address] [place] [address] Phd Intern: Mike Forde MD BUN/CRE Ratio 14 Normal 9-20 [facility] Comment on above: Performed By: #### C DP, CP #### [facility] [address] [place], [place] [id number] Phd Intern: Mike Forde MD Calcium [Mass/Vol] 9.7 mg/dL Normal 8.6-10.4 [facility] Comment on above: Performed By: #### C DP, CP #### [facility] [address] [place] [address] Phd Intern: Mike Forde MD Chloride [Moles/Vol] 101 mmol/L Normal 98-107 [facility] Comment on above: Performed By: #### C DP, CP #### [facility] [address] [place], [place] [phone] Phd Intern: Mike Forde MD CO2 [Moles/Vol] 22 mmol/L Normal 20-31 [facility] Comment on above: Performed By: #### C DP, CP #### [facility] [address] [place], [place] [phone] Phd Intern: Mike Forde MD Creatinine [Mass/Vol] 0.5 mg/dL Normal 0.5-0.9 [facility] Comment on above: Performed By: #### C DP, CP #### [facility] [address] [place] [address] Phd Intern: Mike Forde MD GFR/1.73 sq M.predicted among non-blacks MDRD (S/P/Bld) [Vol rate/Area] mL/min/{1.73_m2} Normal >60 [facility] Comment on above: Result Comment: These results [...] Performed By: #### C DP, CP #### [facility] [address] [place], [place] [phone] Phd Intern: Mike Forde MD Glucose [Mass/Vol] 90 mg/dL Normal 70-99 [facility] Comment on above: Performed By: #### C DP, CP #### [facility] [address] [place], [place] [phone] Phd Intern: Mike Forde MD Potassium [Moles/Vol] 3.5 mmol/L Low 3.7-5.3 [facility] Comment on above: Performed By: #### C DP, CP #### [facility] [address] [place], [place] [id number] Phd Intern: Mike Forde MD Protein [Mass/Vol] 7.5 g/dL Normal 6.4-8.3 [facility] Comment on above: Performed By: #### C DP, CP #### [facility] [address] [place], [place] [phone] Phd Intern: Mike Forde MD Sodium [Moles/Vol] 138 mmol/L Normal 135-144 [facility] Comment on above: Performed By: #### C DP, CP #### [facility] [address] [place], [place] [phone] Phd Intern: Mike Forde MD Urea nitrogen [Mass/Vol] 7 mg/dL Normal 6-20 [facility] Comment on above: Performed By: #### C DP, CP #### [facility] [address] [place], [place] [id number] Phd Intern: Mike Forde MD Basic Metabolic Profon 04-16 Anion gap [Moles/Vol] 15 mmol/L Normal 9-17 [facility] Comment on above: Performed By: #### C DP, BMP #### [facility] [address] [place], [place] [id number] Phd Intern: Mike Forde MD BUN/CRE Ratio 10 Normal 9-20 [facility] Comment on above: Performed By: #### C DP, BMP #### [facility] [address] [place], [place] [phone] Phd Intern: Mike Forde MD Calcium [Mass/Vol] 10.2 mg/dL Normal 8.6-10.4 [facility] Comment on above: Performed By: #### C DP, BMP #### [facility] [address] [place], [place] [phone] Phd Intern: Mike Forde MD Chloride [Moles/Vol] 98 mmol/L Normal 98-107 [facility] Comment on above: Performed By: #### C DP, BMP #### [facility] [address] [place], [place] [id number] Phd Intern: Mike Forde MD CO2 [Moles/Vol] 22 mmol/L Normal 20-31 [facility] Comment on above: Performed By: #### C DP, BMP #### [facility] [address] [place], [place] [phone] Phd Intern: Mike Forde MD Creatinine [Mass/Vol] 0.7 mg/dL Normal 0.5-0.9 [facility] Comment on above: Performed By: #### C DP, BMP #### [facility] [address] [place] [address] Phd Intern: Mike Forde MD GFR/1.73 sq M.predicted among non-blacks MDRD (S/P/Bld) [Vol rate/Area] mL/min/{1.73_m2} Normal >60 [facility] Comment on above: Result Comment: These results [...] Performed By: #### C DP, BMP #### [facility] [address] [place] [address] Phd Intern: Mike Forde MD Glucose [Mass/Vol] 113 mg/dL High 70-99 [facility] Comment on above: Performed By: #### C DP, BMP #### [facility] [address] [place], [place] [phone] Phd Intern: Mike Forde MD Potassium [Moles/Vol] 3.4 mmol/L Low 3.7-5.3 [facility] Comment on above: Performed By: #### C DP, BMP #### [facility] [address] [place] [address] Phd Intern: Mike Forde MD Sodium [Moles/Vol] 135 mmol/L Normal 135-144 [facility] Comment on above: Performed By: #### C DP, BMP #### [facility] [address] [place] [phone] Phd Intern: Mike Forde MD Urea nitrogen [Mass/Vol] 7 mg/dL Normal 6-20 [facility] Comment on above: Performed By: #### C DP, BMP #### [facility] [address] [place] [address] Phd Intern: Mike Forde MD CBC with Diffon 04-16-2023 Abs. Basophil 0.03 k/uL Normal 0.00-0.20 [facility] Comment on above: Performed By: #### C DP, BMP #### [facility] [address] [place] [phone] Phd Intern: Mike Forde MD Abs.Imm.Granulocyte 0.02 k/uL Normal 0.00-0.30 [facility] Comment on above: Performed By: #### C DP, BMP #### [facility] [address] [place] [address] Phd Intern: Mike Forde MD Abs.Neutrophil (Seg) 7.51 k/uL High 2.5-7.0 [facility] Comment on above: Performed By: #### C DP, BMP #### [facility] [address] [place] [address] Phd Intern: Mike Forde MD Basophils/100 WBC (Bld) 0 % Normal 0-2 [facility] Comment on above: Performed By: #### C DP, BMP #### [facility] [address] [place] [phone] Phd Intern: Mike Forde MD Eosinophils (Bld) [#/Vol] 0.03 10*3/uL Normal 0.00-0.40 [facility] Comment on above: Performed By: #### C DP, BMP #### [facility] [address] [place] [id number] Phd Intern: Mike Forde MD Eosinophils/100 WBC (Bld) 0 % Normal 0-5 [facility] Comment on above: Performed By: #### C DP, BMP #### [facility] [address] [place] [address] Phd Intern: Mike Forde MD Erythrocyte distribution width (RBC) [Ratio] 11.8 % Low 12.1-15.2 [facility] Comment on above: Performed By: #### C DP, BMP #### [facility] [address] [place] [address] Phd Intern: Mike Forde MD Hematocrit (Bld) [Volume fraction] 43.4 % Normal 36.0-46.0 [facility] Comment on above: Performed By: #### C DP, BMP #### [facility] [address] [place] [phone] Phd Intern: Mike Forde MD Hemoglobin (Bld) [Mass/Vol] 15.5 g/dL Normal 12.0-16.0 [facility] Comment on above: Performed By: #### C DP, BMP #### [facility] [address] [place] [phone] Phd Intern: Mike Forde MD Immature granulocytes/100 WBC (Bld) 0 % Normal 0-5 [facility] Comment on above: Performed By: #### C DP, BMP #### [facility] [address] [place] [phone] Phd Intern: Mike Forde MD Lymphocytes (Bld) [#/Vol] 2.33 10*3/uL Normal 1.00-4.80 [facility] Comment on above: Performed By: #### C DP, BMP #### [facility] [address] [place], [place] [phone] Phd Intern: Mike Forde MD Lymphocytes/100 WBC (Bld) 22 % Normal 15-40 [facility] Comment on above: Performed By: #### C DP, BMP #### [facility] [address] [place] [address] Phd Intern: Mike Forde MD MCH (RBC) [Entitic mass] 28.9 pg Normal 26.0-34.0 [facility] Comment on above: Performed By: #### C DP, BMP #### [facility] [address] [place] [address] Phd Intern: Mike Forde MD MCHC (RBC) [Mass/Vol] 35.7 g/dL Normal 31.0-37.0 [facility] Comment on above: Performed By: #### C DP, BMP #### [facility] [address] [place] [id number] Phd Intern: Mike Forde MD MCV (RBC) [Entitic vol] 80.8 fL Normal 80.0-100.0 [facility] Comment on above: Performed By: #### C DP, BMP #### [facility] [address] [place] [address] Phd Intern: Mike Forde MD Monocytes (Bld) [#/Vol] 0.88 10*3/uL Normal 0.00-1.00 [facility] Comment on above: Performed By: #### C DP, BMP #### [facility] [address] [place] [address] Phd Intern: Mike Forde MD Monocytes/100 WBC (Bld) 8 % Normal 4-8 [facility] Comment on above: Performed By: #### C DP, BMP #### [facility] [address] [place], [place] [phone] (926) Phd Intern: Mike Forde MD Neutrophil (Seg) 70 % Normal 47-75 [facility] Comment on above: Performed By: #### C DP, BMP #### [facility] [address] [place] [address] (052) Phd Intern: Mike Forde MD Platelet mean volume (Bld) [Entitic vol] 10.5 fL Normal 6.0-12.0 [facility] Comment on above: Performed By: #### C DP, BMP #### [facility] [address] [place], [place] [phone] (510) Phd Intern: Mike Forde MD Platelets (Bld) [#/Vol] 279 10*3/uL Normal 140-450 [facility] Comment on above: Performed By: #### C DP, BMP #### [facility] [address] [place] [address] (764) Phd Intern: Mike Forde MD RBC (Bld) [#/Vol] 5.37 10*6/uL High 4.00-5.20 [facility] Comment on above: Performed By: #### C DP, BMP #### [facility] [address] [place] [address] Phd Intern: Mike Forde MD WBC (Bld) [#/Vol] 10.8 10*3/uL Normal 3.5-11.0 [facility] Comment on above: Performed By: #### C DP, BMP #### [facility] [address] [place] [address] (260) Phd Intern: Mike Forde MD CBC with Auto Differentialon 12-13-2021 Absolute Eos # 0.00 [facility] Absolute Lymph # 1.90 [facility] Absolute [place] # 0.50 [facility] Basophils (Bld) [#/Vol] 0.00 10*3/uL [facility] Basophils/100 WBC (Bld) 0 % 0 - 2 % [facility] Differential Type YES [facility] Eosinophils/100 WBC (Bld) 0 % 0 - 5 % [facility] Hematocrit (Bld) [Volume fraction] 43.5 % 36 - 46 % [facility] Hemoglobin (Bld) [Mass/Vol] 14.6 g/dL 12.0 - 16.0 g/dL [facility] Lymphocytes/100 WBC (Bld) 21 % 15 - 40 % [facility] MCH (RBC) [Entitic mass] 28.9 pg 26 - 34 pg [facility] MCHC (RBC) [Mass/Vol] 33.5 g/dL 31 - 37 g/dL [facility] MCV (RBC) [Entitic vol] 86.2 fL 80 - 100 fL [facility] Monocytes/100 WBC (Bld) 5 % 4 - 8 % [facility] Platelet distribution width (Bld) [Ratio] 12.3 % 12.1 - 15.2 % [facility] Platelets (Bld) [#/Vol] 265 10*3/uL [facility] RBC (Bld) [#/Vol] 5.05 10*6/uL 4.0 - 5.2 m/uL [facility] Segmented neutrophils/100 WBC (Bld) 74 % 47 - 75 % [facility] Segs Absolute 6.60 [facility] WBC (Bld) [#/Vol] 9.1 10*3/uL [facility] Comprehensive Metabolic Pane davi 12-13-2021 Albumin [Mass/Vol] 4.3 g/dL 3.5 - 5.2 g/dL [facility] ALP (Bld) [Catalytic activity/Vol] 77 U/L 35 - 104 U/L [facility] ALT [Catalytic activity/Vol] 23 U/L 5 - 33 U/L [facility] Anion gap [Moles/Vol] 11 mmol/L 9 - 17 mmol/L [facility] AST [Catalytic activity/Vol] 15 U/L <32 [facility] Bilirubin [Mass/Vol] 0.51 mg/dL 0.30 - 1.20 mg/dL [facility] Calcium [Mass/Vol] 9.6 mg/dL 8.6 - 10.4 mg/dL [facility] Chloride [Moles/Vol] 102 mmol/L 98 - 107 mmol/L [facility] CO2 [Moles/Vol] 25 mmol/L 20 - 31 mmol/L [facility] Creatinine [Mass/Vol] 0.77 mg/dL 0.50 - 0.90 mg/dL [facility] Free PSA/Total PSA [Mass fraction] 7.4 g/dL 6.4 - 8.3 g/dL [facility] GFR >60 >60 mL/min [facility] GFR Non- >60 >60 mL/min [facility] GFR/1.73 sq M.predicted MDRD (S/P/Bld) [Vol rate/Area] [facility] Comment on above: Average GFR for 20-2 9 years old: 116 mL/min/1.73sq m Chronic Kidney Disease: <60 mL/min/1.73sq m Kidney failure: <15 mL/min/1.73sq m eGFR calculated using average adult body mass. Additional eGFR calculator available at: http://www.[employer]/multiple_crcl_2011.htm Glucose [Mass/Vol] 93 mg/dL 70 - 99 mg/dL [facility] Potassium [Moles/Vol] 4.2 mmol/L 3.7 - 5.3 mmol /L [facility] Sodium [Moles/Vol] 138 mmol/L 135 - 144 mmol/L [facility] Urea nitrogen (BldV) [Mass/Vol] 9 mg/dL 6 - 20 mg/dL [facility] Urea nitrogen/Creatinine (Bld) [Mass ratio] 12 [facility] Encounters Encounter Date Encounter Type Care Provider Facility Start: 11-06-2023 End: 11-06-2023 ambulatory NAHED RITA Not Available Start: 10-31-2023 End: 10-31-2023 ambulatory NAHED RITA [...] 05-31-2023 Emergency department patient visit TERRENCE WOLF [facility] Start: 04-16-2023 End: 04-17-2023 [facility] Start: 12-13-2021 End: 12-13-2021 Subsequent hospital visit by physician Arpit Leblanc CNP Work Phone: [facility] Comment on above: Blood in stool, zeina k; Gastroesophageal reflux disease without esophagitis; Diarrhea, unspecified type; Abdominal cramping Start: 03-01-2019 End: 03-01-2019 Subsequent hospital visit by physician Arpit Parekh [facility] Comment on above: Need for varicella v accine Procedures Date Procedure Procedure Detail Performing Clinician Start: 12-13-2021 Comprehensive metabo lic panel Arpit Leblanc [employer] Work Phone: Plan of Treatment Date Care Activity Detail Author Start: 11-26-2029 DTaP/Tdap/Td vaccine (3 - Td or Tdap) DTaP/Tdap/Td vaccine (3 - Td or Tdap) [facility] Start: 12-13-2022 Depression Screen Depression Screen [facility] Start: 03-14-2022 COVID-19 Vaccine (3 - Booster for Pfizer series) COVID-19 Vaccine (3 - Booster for Pfizer series) [facility] Start: 03-10-2022 Influenza vaccination Flu vaccine (S angelo Ended) [facility] Start: 01-11-2022 End: 01-11-2022 Patient encounter procedure 01/11/2022 Office Visit Family Medicine 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, 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 - [employer] [address] [place] [address] [facility] [place] Start: 2019 Screening for malign ant neoplasm of cervix Pap smear [facility] Start: 03-10-2019 Influenza vaccination Flu vaccine (# 1) [place], [place] Start: 2017 DTaP/Tdap/Td vaccine (1 - Tdap) DTaP/Tdap/Td vaccine (1 - Tdap) [place] Start: 2016 Hepatitis C screening Hepatitis C sc reen [facility] Start: 2014 Chlamydia screen Chlamydia screen [place], [place] Start: 2014 Screening for Chlamy nathalie trachomatis Chlamydia screen [facility] Start: 2013 HIV screen HIV screen [place], [place] Start: 2013 HIV screening HIV screen [facility] Start: 2013 HPV vaccine (1 - Fem dana 3-dose series) HPV vaccine (1 - Female 3-dose series) [place], [place] Start: 2011 Varicella Vaccine (1 of 2 - 13+ 2-dose series) Varicella Vaccine (1 of 2 - 13+ 2-dose series) [place] Start: 2009 HPV vaccine (1 - 2-d ose series) HPV vaccine (1 - 2-dose series) [facility] Start: 1999 Varicella vaccine (1 of 2 - 2-dose childhood series) Varicella vaccine (1 of 2 - 2-dose childhood series) [facility] End: 12-13-2021 CBC W Auto Differential panel - Blood CBC with Auto Differential Lab Routine Diarrhea, unspecified type Blood in stool, gustavo 1 Occurrences starting 12/13/2021 until 12/13/2021 [employer] Phone: Comment on above: 1 Occurrences starti ng 12/13/2021 until 12/13/2021 End: 12-13-2021 Celiac Disease Panel Celiac Disease Panel Lab Routine Diarrhea, unspecified type Abdominal cramping 1 Occurrences starting 12/13/2021 until 12/13/2021 [employer] Phone: Comment on above: 1 Occurrences starti ng 12/13/2021 until 12/13/2021 End: 12-13-2021 [facility] [employer] Phone: Comment on above: Once for 1 Occurrenc es starting 12/13/2021 until 12/13/2021 End: 12-13-2021 Comprehensive metabolic 2000 panel - Serum or Plasma Comprehensive Metabolic Panel Lab Routine Blood in stool, gustavo Gastroesophageal reflux disease without esophagitis 1 Occurrences starting 12/13/2021 until 12/13/2021 [employer] Phone: Comment on above: 1 Occurrences starti ng 12/13/2021 until 12/13/2021 End: 03-01-2019 Varicella Zoster Antibody, IgG Varicella Zoster Antibody, IgG Lab Routine Need for varicella vaccine 1 Occurrences starting 03/01/2019 until 03/01/2019 [place] Comment on above: 1 Occurrences starti ng 03/01/2019 until 03/01/2019 Varicella Zoster Antibody, IgG Varicella Zoster Antibody, IgG Lab Routine Need for varicella vaccine 03/01/2019 11:50 AM EDT [place], [place] Immunizations Immunization Date Immunization Notes Care Provider Fa cili 09-18-2021 COVID-19, Pfizer Pur ple top, DILUTE for use, 12+ yrs, 30mcg/0.3mL dose Arpit Parekh 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 [employer] Work Phone: [facility] [employer] Phone: 11-27-2019 Hepatitis B vaccine (recombinant), CpG adjuvanted Arpit Parekh 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 [employer] Work Phone: [facility] [employer] Work Phone: 11-27-2019 tetanus toxoid, redu gordon diphtheria toxoid, and acellular pertussis vaccine, adsorbed [facility]pit [facility]kh [facility] Work Phone: [facility] [employer] Work Phone: 03-27-2019 hepatitis B vaccine, adult dosage Arpit Parekh [facility] Work Phone: [facility] [employer] Work Phone: 03-27-2019 measles, mumps and rubella virus vaccine Arpit Parekh [facility] [employer] [facility] Work Phone: [facility] [address] Work Phone: 03-03-2019 measles, mumps and rubella virus vaccine Arpit Parekh [facility] Work Phone: [facility] [address] Work Phone: 02-25-2019 hepatitis B vaccine, adult dosage Arpit Parekh [facility] Payers Date Payer Category Payer Unknown [id number] 2022 Private Health Insurance [id number] 2018 Unknown BCBS [place] P PO xxxxxxxxxxxx 2018-Present [address] [place] [address] xxxxxxxxxxxx [id number] 2018 Unknown [id number] [id number] .[id number] 1998 Unknown [id number] 2.16.840.1.418699.3.579.2 .174 1998 Unknown [id number] 2.16.840.1.511098.3.579.2 .174 1998 Unknown [id number] 2.16.840.1.943537.3.579.2 .1259 1998 Unknown [id number] 2.16.840.1.593701.3.579.2 .9 1998 Unknown [id number] 2.16.840.1.096444.3.579.2 .9 1998 Unknown [id number] 2.16.840.1.149596.3.579.2 .9 1998 Unknown [id number] 2.16.840.1.755884.3.579.2 .1258 1998 Unknown [id number] 2.16.840.1.053541.3.579.2 .1258 1998 Unknown [id number] 2.16.840.1.514616.3.579.2 .9 1998 Unknown [id number] 2.16.840.1.059258.3.579.2 .1258 1998 Unknown [id number] 2.16.840.1.928600.3.579.2 .9 Social History Date Type Detail Facility Start: 04-25-2016 End: 11-26-2018 Tobacco smoking status NHIS Never smoker [place], [place] Start: 11-26-2018 [facility] [place] [place] Start: 2000 Sex Assigned At Not on file M [place], [place] Start: 04-25-2016 Tobacco use and exposure Smokeless tobacco non-user [facility] [employer] Phone: Start: 12-13-2021 Alcohol intake 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) [facility] Phone: Start: 12-13-2021 History SDOH Financial [employer] Phone: Start: 12-13-2021 History 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 1 [employer] Phone: Evaluation note Note Date & Type Note Facility Evaluation note Diagnosis Blood in stool, gustavo Blood in stool Gastroesophageal reflux disease without esophagitis Esophageal reflux Diarrhea, unspecified type Abdominal cramping Abdominal pain, unspecified site documented in this encounter 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 [facility] Work Phone: Assessments Diagnosis Need for varicella vaccine Need for prophylactic vaccination and inoculation against varicella Advance Directives No Advanced Directives Records FoundDocuments on File Type Date Recorded 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 Expl 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 Advance Directives and Living Will Power of Manager Travel Documents on File Type Date Recorded 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 Expl anation ACP-Advance Directive ACP-Power of Manager Travel Summary Purpose Family History No Family History Records FoundNo Family History Records Found Additional Source Comments Care Teams (unrecognized sec tion and content) Varying Exceptionalities Teacher Relationship Specialty Start Date End Date Arpit Parekh, 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 - INSPECTOR [employer] [address] [place] [address] PCP - General Nurse Practitioner 11/23/16 INFORMATION SOURCE (unrecogn ized section and content) DATE CREATED AUTHOR 06/02/2023 Rachel Mcnair spital DATE CREATED AUTHOR AUTHOR'S ORGANIZ ATION 11/06/2023 [facility] FOR RECORDS PERTAINING TO PATIENTS WHO ARE [...] BE BASED ON THE PRIMARY CLINICAL RECORDS. [employer] provides no warranty or guarantee of the accuracy or completeness of information in this document.
[2023-11-08 11:09] VITALS: BP 137/79; PULSE 123
[2023-11-08 11:38] VITALS: BP 126/75; PULSE 91; TEMP 36.4
== END 2023-11-08 12:05 | disposition home or self-care (01) ==
LOC: FBCO 07:14 → FBC 11:05
PROVIDERS: Visit Provider Obstetrics & Gynecology
DX: O26.893 Other specified pregnancy related conditions, third trimester (principal)
CPT/HCPCS: 59025

== ENCOUNTER 2023-11-11 08:40 | Outpatient (OUT) | payer BC, OTHER, SELFPAY ==
--- NOTE | 2023-11-11 | US_ITS ---
[address] [address] Patient Name: DANIEL ARMENDARIZ MRN: [id number] date: 2000 Sex: F Assigned Patient Location: [facility] Current Patient Location: Accession/Order Number: [id number] Exam Date: 11/11/2023 09:14 Report Date: 11/13/2023 07:37 At the request of: NAHED SALINAS Procedure: US OB BPP w non-stress EXAMINATION: US OB BPP w non-stress HISTORY: HYPERTHYROIDISM O99.280, E05.90 COMPARISON: 11/04/2023 TECHNIQUE: Ultrasound biophysical profile was performed in the radiology department FINDINGS: BREATHING MOVEMENTS: 2.0 GROSS BODY MOVEMENTS: 2.0 TONE: 2.0 QUALITATIVE AMNIOTIC FLUID VOLUME: 2.0 PRESENTATION: CEPHALIC HEART RATE: 124.4 bpm H.B./min AMNIOTIC FLUID VOLUME: 18.8 cm cm GESTATIONAL AGE: 38 weeks 0 days CONCLUSION: Total biophysical profile score: 8.0 Electronically authenticated by: KENDALL KRISHNAN Date: 11/13/2023 07:37
--- OUTSIDE RECORDS SUMMARY | 2023-11-11 09:03 | XMS_ITS | CCD ---
Author Organization [facility] Care Team Providers Care Inspector Final Assembly Conveyor Line Name Role Phone Arpit Parekh Primary Care Provider TERRENCE WOLF Attending Unavailable APRIT PAREKH Primary Care Unavailable ARPIT PAREKH Primary [...] 05-30-2023 Abs. Basophil 0.01 k/uL Normal 0.00-0.20 [facility] Comment on above: Performed By: #### C DP, CP #### [facility] [address] [place] [address] Documentation Analyst: Mike Forde MD Abs.Imm.Granulocyte 0.01 k/uL Normal 0.00-0.30 [facility] Comment on above: Performed By: #### C DP, CP #### [facility] [address] [place] [address] Documentation Analyst: Mike Forde MD Abs.Neutrophil (Seg) 6.24 k/uL Normal 2.5-7.0 [facility] Comment on above: Performed By: #### C DP, CP #### [facility] [address] [place] [address] Documentation Analyst: Mike Forde MD Basophils/100 WBC (Bld) 0 % Normal 0-2 [facility] Comment on above: Performed By: #### C DP, CP #### [facility] [address] [place] [address] Documentation Analyst: Mike Forde MD Eosinophils (Bld) [#/Vol] 0.00 10*3/uL Normal 0.00-0.40 [facility] Comment on above: Performed By: #### C DP, CP #### [facility] [address] [place] [address] Documentation Analyst: Mike Forde MD Eosinophils/100 WBC (Bld) 0 % Normal 0-5 [facility] Comment on above: Performed By: #### C DP, CP #### [facility] [address] [place], [place] [id number] Documentation Analyst: Mike Forde MD Erythrocyte distribution width (RBC) [Ratio] 11.9 % Low 12.1-15.2 [facility] Comment on above: Performed By: #### C DP, CP #### [facility] [address] [place], [place] [id number] Documentation Analyst: Mike Forde MD Hematocrit (Bld) [Volume fraction] 41.1 % Normal 36.0-46.0 [facility] Comment on above: Performed By: #### C DP, CP #### [facility] [address] [place] [address] Documentation Analyst: Mike Forde MD Hemoglobin (Bld) [Mass/Vol] 14.5 g/dL Normal 12.0-16.0 [facility] Comment on above: Performed By: #### C DP, CP #### [facility] [address] [place] [address] Documentation Analyst: Mike Forde MD Immature granulocytes/100 WBC (Bld) 0 % Normal 0-5 [facility] Comment on above: Performed By: #### C DP, CP #### [facility] [address] [place], [place] [id number] Documentation Analyst: Mike Forde MD Lymphocytes (Bld) [#/Vol] 1.74 10*3/uL Normal 1.00-4.80 [facility] Comment on above: Performed By: #### C DP, CP #### [facility] [address] [place] [address] Documentation Analyst: Mike Forde MD Lymphocytes/100 WBC (Bld) 21 % Normal 15-40 [facility] Comment on above: Performed By: #### C DP, CP #### [facility] [address] [place] [address] Documentation Analyst: Mike Forde MD MCH (RBC) [Entitic mass] 29.2 pg Normal 26.0-34.0 [facility] Comment on above: Performed By: #### C DP, CP #### [facility] [address] [place] [address] Documentation Analyst: Mike Forde MD MCHC (RBC) [Mass/Vol] 35.3 g/dL Normal 31.0-37.[address] [facility] Comment on above: Performed By: #### C DP, CP #### [facility] [address] [place] [address] Documentation Analyst: Mike Forde MD MCV (RBC) [Entitic vol] 82.9 fL Normal 80.0-100.0 [facility] Comment on above: Performed By: #### C DP, CP #### [facility] [address] [place] [address] Documentation Analyst: Mike Forde MD Monocytes (Bld) [#/Vol] 0.50 10*3/uL Normal 0.00-1.00 [facility] Comment on above: Performed By: #### C DP, CP #### [facility] [address] [place] [address] Documentation Analyst: Mike Forde MD Monocytes/100 WBC (Bld) 6 % Normal 4-8 [facility] Comment on above: Performed By: #### C DP, CP #### [facility] [address] [place] [address] Documentation Analyst: Mike Forde MD Neutrophil (Seg) 73 % Normal 47-75 [facility] Comment on above: Performed By: #### C DP, CP #### [facility] [address] [place], [place] [id number] Documentation Analyst: Mike Forde MD Platelet mean volume (Bld) [Entitic vol] 10.4 fL Normal 6.0-12.[address] [facility] Comment on above: Performed By: #### C DP, CP #### [facility] [address] [place], [place] [phone] ([phone]) Documentation Analyst: Mike Forde MD Platelets (Bld) [#/Vol] 227 10*3/uL Normal 140-450 [facility] Comment on above: Performed By: #### C DP, CP #### [facility] [address] [place], [place] [phone] ([phone]) Documentation Analyst: Mike Forde MD RBC (Bld) [#/Vol] 4.96 10*6/uL Normal 4.00-5.20 [facility] Comment on above: Performed By: #### C DP, CP #### [facility] [address] [place], [place] [phone] Documentation Analyst: Mike Forde MD WBC (Bld) [#/Vol] 8.5 10*3/uL Normal 3.5-11.0 [facility] Comment on above: Performed By: #### C DP, CP #### [facility] [address] [place], [place] [id number] Documentation Analyst: Mike Forde MD Comp Metabolic Profon 2022 Albumin [Mass/Vol] 4.2 g/dL Normal 3.5-5.2 [facility] Comment on above: Performed By: #### C DP, CP #### [facility] [address] [place] [address] Documentation Analyst: Mike Forde MD Alkaline Phos 48 U/L Normal 35-104 [facility] Comment on above: Performed By: #### C DP, CP #### [facility] [address] [place] [address] Documentation Analyst: Mike Forde MD ALT [Catalytic activity/Vol] 12 U/L Normal 5-33 [facility] Comment on above: Performed By: #### C DP, CP #### [facility] [address] [place], [place] [id number] Documentation Analyst: Mike Forde MD Anion gap [Moles/Vol] 15 mmol/L Normal 9-[address] [facility] Comment on above: Performed By: #### C DP, CP #### [facility] [address] [place], [place] [id number] Documentation Analyst: Mike Forde MD AST [Catalytic activity/Vol] 11 U/L Normal <32 [facility] Comment on above: Performed By: #### C DP, CP #### [facility] [address] [place] [address] Documentation Analyst: Mike Forde MD Bilirubin [Mass/Vol] mg/dL Low 0.3-1.2 [facility] Comment on above: Performed By: #### C DP, CP #### [facility] [address] [place] [address] Documentation Analyst: Mike Forde MD BUN/CRE Ratio 14 Normal 9-20 [facility] Comment on above: Performed By: #### C DP, CP #### [facility] [address] [place], [place] [phone] Documentation Analyst: Mike Forde MD Calcium [Mass/Vol] 9.7 mg/dL Normal 8.6-10.4 [facility] Comment on above: Performed By: #### C DP, CP #### [facility] [address] [place] [address] Documentation Analyst: Mike Forde MD Chloride [Moles/Vol] 101 mmol/L Normal 98-107 [facility] Comment on above: Performed By: #### C DP, CP #### [facility] [address] [place], [place] [id number] Documentation Analyst: Mike Forde MD CO2 [Moles/Vol] 22 mmol/L Normal 20-31 [facility] Comment on above: Performed By: #### C DP, CP #### [facility] [address] [place], [place] [id number] Documentation Analyst: Mike Forde MD Creatinine [Mass/Vol] 0.5 mg/dL Normal 0.5-0.[address] [facility] Comment on above: Performed By: #### C DP, CP #### [facility] [address] [place] [address] Documentation Analyst: Mike Forde MD GFR/1.73 sq M.predicted among non-blacks MDRD (S/P/Bld) [Vol rate/Area] mL/min/{1.73_m2} Normal >60 [facility] Comment on above: Result Comment: These results [...] By: #### C DP, CP #### [facility] [address] [place], [place] [phone] Documentation Analyst: Mike Forde MD Glucose [Mass/Vol] 90 mg/dL Normal 70-99 [facility] Comment on above: Performed By: #### C DP, CP #### [facility] [address] [place], [place] [phone] Documentation Analyst: Mike Forde MD Potassium [Moles/Vol] 3.5 mmol/L Low 3.7-5.[address] [facility] Comment on above: Performed By: #### C DP, CP #### [facility] [address] [place], [place] [phone] Documentation Analyst: Mike Forde MD Protein [Mass/Vol] 7.5 g/dL Normal 6.4-8.3 [facility] Comment on above: Performed By: #### C DP, CP #### [facility] [address] [place], [place] [id number] Documentation Analyst: Mike Forde MD Sodium [Moles/Vol] 138 mmol/L Normal 135-144 [facility] Comment on above: Performed By: #### C DP, CP #### [facility] [address] [place], [place] [id number] Documentation Analyst: Mike Forde MD Urea nitrogen [Mass/Vol] 7 mg/dL Normal 6-20 [facility] Comment on above: Performed By: #### C DP, CP #### [facility] [address] [place], [place] [phone] Documentation Analyst: Mike Forde MD Basic Metabolic Profon 04-16 Anion gap [Moles/Vol] 15 mmol/L Normal 9-[address] [facility] Comment on above: Performed By: #### C DP, BMP #### [facility] [address] [place], [place] [id number] Documentation Analyst: Mike Forde MD BUN/CRE Ratio 10 Normal 9-20 [facility] Comment on above: Performed By: #### C DP, BMP #### [facility] [address] [place], [place] [id number] Documentation Analyst: Mike Forde MD Calcium [Mass/Vol] 10.2 mg/dL Normal 8.6-10.4 [facility] Comment on above: Performed By: #### C DP, BMP #### [facility] [address] [place], [place] [id number] Documentation Analyst: Mike Forde MD Chloride [Moles/Vol] 98 mmol/L Normal 98-107 [facility] Comment on above: Performed By: #### C DP, BMP #### [facility] [address] [place], [place] [id number] Documentation Analyst: Mike Forde MD CO2 [Moles/Vol] 22 mmol/L Normal 20-31 [facility] Comment on above: Performed By: #### C DP, BMP #### [facility] [address] [place], [place] [id number] Documentation Analyst: Mike Forde MD Creatinine [Mass/Vol] 0.7 mg/dL Normal 0.5-0.[address] [facility] Comment on above: Performed By: #### C DP, BMP #### [facility] [address] [place] [address] Documentation Analyst: Mike Forde MD GFR/1.73 sq M.predicted among non-blacks MDRD (S/P/Bld) [Vol rate/Area] mL/min/{1.73_m2} Normal >60 [facility] Comment on above: Result Comment: These results [...] By: #### C DP, BMP #### [facility] [address] [place] [address] Documentation Analyst: Mike Forde MD Glucose [Mass/Vol] 113 mg/dL High 70-99 [facility] Comment on above: Performed By: #### C DP, BMP #### [facility] [address] [place], [place] [id number] Documentation Analyst: Mike Forde MD Potassium [Moles/Vol] 3.4 mmol/L Low 3.7-5.[address] [facility] Comment on above: Performed By: #### C DP, BMP #### [facility] [address] [place] [address] Documentation Analyst: Mike Forde MD Sodium [Moles/Vol] 135 mmol/L Normal 135-144 [facility] Comment on above: Performed By: #### C DP, BMP #### [facility] [address] [place] [id number] Documentation Analyst: Mike Forde MD Urea nitrogen [Mass/Vol] 7 mg/dL Normal 6-20 [facility] Comment on above: Performed By: #### C DP, BMP #### [facility] [address] [place] [address] Documentation Analyst: Mike Forde MD CBC with Diffon 04-16-2023 Abs. Basophil 0.03 k/uL Normal 0.00-0.20 [facility] Comment on above: Performed By: #### C DP, BMP #### [facility] [address] [place] [phone] Documentation Analyst: Mike Forde MD Abs.Imm.Granulocyte 0.02 k/uL Normal 0.00-0.30 [facility] Comment on above: Performed By: #### C DP, BMP #### [facility] [address] [place] [address] Documentation Analyst: Mike Forde MD Abs.Neutrophil (Seg) 7.51 k/uL High 2.5-7.0 [facility] Comment on above: Performed By: #### C DP, BMP #### [facility] [address] [place] [address] Documentation Analyst: Mike Forde MD Basophils/100 WBC (Bld) 0 % Normal 0-2 [facility] Comment on above: Performed By: #### C DP, BMP #### [facility] [address] [place] [id number] Documentation Analyst: Mike Forde MD Eosinophils (Bld) [#/Vol] 0.03 10*3/uL Normal 0.00-0.40 [facility] Comment on above: Performed By: #### C DP, BMP #### [facility] [address] [place] [id number] Documentation Analyst: Mike Forde MD Eosinophils/100 WBC (Bld) 0 % Normal 0-5 [facility] Comment on above: Performed By: #### C DP, BMP #### [facility] [address] [place] [address] Documentation Analyst: Mike Forde MD Erythrocyte distribution width (RBC) [Ratio] 11.8 % Low 12.1-15.2 [facility] Comment on above: Performed By: #### C DP, BMP #### [facility] [address] [place] [address] Documentation Analyst: Mike Forde MD Hematocrit (Bld) [Volume fraction] 43.4 % Normal 36.0-46.0 [facility] Comment on above: Performed By: #### C DP, BMP #### [facility] [address] [place] [id number] Documentation Analyst: Mike Forde MD Hemoglobin (Bld) [Mass/Vol] 15.5 g/dL Normal 12.0-16.0 [facility] Comment on above: Performed By: #### C DP, BMP #### [facility] [address] [place] [id number] Documentation Analyst: Mike Forde MD Immature granulocytes/100 WBC (Bld) 0 % Normal 0-5 [facility] Comment on above: Performed By: #### C DP, BMP #### [facility] [address] [place] [id number] Documentation Analyst: Mike Forde MD Lymphocytes (Bld) [#/Vol] 2.33 10*3/uL Normal 1.00-4.80 [facility] Comment on above: Performed By: #### C DP, BMP #### [facility] [address] [place], [place] [id number] Documentation Analyst: Mike Forde MD Lymphocytes/100 WBC (Bld) 22 % Normal 15-40 [facility] Comment on above: Performed By: #### C DP, BMP #### [facility] [address] [place] [address] Documentation Analyst: Mike Forde MD MCH (RBC) [Entitic mass] 28.9 pg Normal 26.0-34.0 [facility] Comment on above: Performed By: #### C DP, BMP #### [facility] [address] [place] [address] Documentation Analyst: Mike Forde MD MCHC (RBC) [Mass/Vol] 35.7 g/dL Normal 31.0-37.[address] [facility] Comment on above: Performed By: #### C DP, BMP #### [facility] [address] [place] [id number] Documentation Analyst: Mike Forde MD MCV (RBC) [Entitic vol] 80.8 fL Normal 80.0-100.0 [facility] Comment on above: Performed By: #### C DP, BMP #### [facility] [address] [place] [address] Documentation Analyst: Mike Forde MD Monocytes (Bld) [#/Vol] 0.88 10*3/uL Normal 0.00-1.00 [facility] Comment on above: Performed By: #### C DP, BMP #### [facility] [address] [place] [address] Documentation Analyst: Mike Forde MD Monocytes/100 WBC (Bld) 8 % Normal 4-8 [facility] Comment on above: Performed By: #### C DP, BMP #### [facility] [address] [place], [place] [phone] ([phone] Documentation Analyst: Mike Forde MD Neutrophil (Seg) 70 % Normal 47-75 [facility] Comment on above: Performed By: #### C DP, BMP #### [facility] [address] [place] [address] ([phone]) Documentation Analyst: Mike Forde MD Platelet mean volume (Bld) [Entitic vol] 10.5 fL Normal 6.0-12.[address] [facility] Comment on above: Performed By: #### C DP, BMP #### [facility] [address] [place], [place] [phone] (139) Documentation Analyst: Mike Forde MD Platelets (Bld) [#/Vol] 279 10*3/uL Normal 140-450 [facility] Comment on above: Performed By: #### C DP, BMP #### [facility] [address] [place] [address] (342) Documentation Analyst: Mike Forde MD RBC (Bld) [#/Vol] 5.37 10*6/uL High 4.00-5.20 [facility] Comment on above: Performed By: #### C DP, BMP #### [facility] [address] [place] [address] Documentation Analyst: Mike Forde MD WBC (Bld) [#/Vol] 10.8 10*3/uL Normal 3.5-11.0 [facility] Comment on above: Performed By: #### C DP, BMP #### [facility] [address] [place] [address] ([phone] Documentation Analyst: Mike Forde MD CBC with Auto Differentialon 12-13-2021 Absolute Eos # 0.00 [facility] Absolute Lymph # 1.90 [facility] Absolute [place] # 0.50 [facility] Basophils (Bld) [#/Vol] 0.00 10*3/uL [facility] Basophils/100 WBC (Bld) 0 % 0 - 2 % [facility] Differential Type YES [facility] Eosinophils/100 WBC (Bld) 0 % 0 - 5 % [facility] Hematocrit (Bld) [Volume fraction] 43.5 % 36 - 46 % [facility] Hemoglobin (Bld) [Mass/Vol] 14.6 g/dL 12.0 - 16.0 g/dL [facility] Lymphocytes/100 WBC (Bld) 21 % 15 - 40 % [facility] MCH (RBC) [Entitic mass] 28.9 pg 26 - 34 pg [facility] MCHC (RBC) [Mass/Vol] 33.5 g/dL 31 - 37 g/dL [facility] MCV (RBC) [Entitic vol] 86.2 fL 80 - 100 fL [facility] Monocytes/100 WBC (Bld) 5 % 4 - 8 % [facility] Platelet distribution width (Bld) [Ratio] 12.3 % 12.1 - 15.2 % [facility] Platelets (Bld) [#/Vol] 265 10*3/uL [facility] RBC (Bld) [#/Vol] 5.05 10*6/uL 4.0 - 5.2 m/uL [facility] Segmented neutrophils/100 WBC (Bld) 74 % 47 - 75 % [facility] Segs Absolute 6.60 [facility] WBC (Bld) [#/Vol] 9.1 10*3/uL [facility] Comprehensive Metabolic Pane davi 12-13-2021 Albumin [Mass/Vol] 4.3 g/dL 3.5 - 5.2 g/dL [facility] ALP (Bld) [Catalytic activity/Vol] 77 U/L 35 - 104 U/L [facility] ALT [Catalytic activity/Vol] 23 U/L 5 - 33 U/L [facility] Anion gap [Moles/Vol] 11 mmol/L 9 - 17 mmol/L [facility] AST [Catalytic activity/Vol] 15 U/L <32 [facility] Bilirubin [Mass/Vol] 0.51 mg/dL 0.30 - 1.20 mg/dL [facility] Calcium [Mass/Vol] 9.6 mg/dL 8.6 - 10.4 mg/dL [facility] Chloride [Moles/Vol] 102 mmol/L 98 - 107 mmol/L [facility] CO2 [Moles/Vol] 25 mmol/L 20 - 31 mmol/L [facility] Creatinine [Mass/Vol] 0.77 mg/dL 0.50 - 0.90 mg/dL [facility] Free PSA/Total PSA [Mass fraction] 7.4 g/dL 6.4 - 8.3 g/dL [facility] GFR >60 >60 mL/min [facility] GFR Non- >60 >60 mL/min [facility] GFR/1.73 sq M.predicted MDRD (S/P/Bld) [Vol rate/Area] [facility] Comment on above: Average GFR for 20-2 9 years old: 116 mL/min/1.73sq m Chronic Kidney Disease: <60 mL/min/1.73sq m Kidney failure: <15 mL/min/1.73sq m eGFR calculated using average adult body mass. Additional eGFR calculator available at: http://www.[employer]/multiple_crcl_2011.htm Glucose [Mass/Vol] 93 mg/dL 70 - 99 mg/dL [facility] Potassium [Moles/Vol] 4.2 mmol/L 3.7 - 5.3 mmol /L [facility] Sodium [Moles/Vol] 138 mmol/L 135 - 144 mmol/L [facility] Urea nitrogen (BldV) [Mass/Vol] 9 mg/dL 6 - 20 mg/dL [facility] Urea nitrogen/Creatinine (Bld) [Mass ratio] 12 CENTRA [...] 05-31-2023 Emergency department patient visit TERRENCE WOLF [facility] Start: 04-16-2023 End: 04-17-2023 [facility] Start: 12-13-2021 End: 12-13-2021 Subsequent hospital visit by physician Arpit Leblanc CNP Work Phone: [facility] Comment on above: Blood in stool, zeina k; Gastroesophageal reflux disease without esophagitis; Diarrhea, unspecified type; Abdominal cramping Start: 03-01-2019 End: 03-01-2019 Subsequent hospital visit by physician Arpit Parekh [facility] Comment on above: Need for varicella v accine Procedures Date Procedure Procedure Detail Performing Clinician Start: 12-13-2021 Comprehensive metabo lic panel Arpit Leblanc TELEPHONE DIRECTORY DISTRIBUTOR DRIVER Work Phone: Plan of Treatment Date Care Activity Detail Author Start: 11-26-2029 DTaP/Tdap/Td vaccine (3 - Td or Tdap) DTaP/Tdap/Td vaccine (3 - Td or Tdap) [facility] Start: 12-13-2022 Depression Screen Depression Screen [facility] Start: 03-14-2022 COVID-19 Vaccine (3 - Booster for Pfizer series) COVID-19 Vaccine (3 - Booster for Pfizer series) [facility] Start: 03-10-2022 Influenza vaccination Flu vaccine (S angelo Ended) [facility] Start: 01-11-2022 End: 01-11-2022 Patient encounter procedure 01/11/2022 Office Visit Family Medicine Arpit Parekh, ROLLER INSPECTOR - TELEPHONE DIRECTORY DISTRIBUTOR DRIVER [address] [place] [address] [facility] Start: 2019 Screening for malign ant neoplasm of cervix Pap smear [facility] Start: 03-10-2019 Influenza vaccination Flu vaccine (# 1) [place], [place] Start: 2017 DTaP/Tdap/Td vaccine (1 - Tdap) DTaP/Tdap/Td vaccine (1 - Tdap) [place], [place] Start: 2016 Hepatitis C screening Hepatitis C sc reen [facility] Start: 2014 Chlamydia screen Chlamydia screen [place], [place] Start: 2014 Screening for Chlamy nathalie trachomatis Chlamydia screen [facility] Start: 2013 HIV screen HIV screen [place], [place] Start: 2013 HIV screening HIV screen [facility] Start: 2013 HPV vaccine (1 - Fem dana 3-dose series) HPV vaccine (1 - Female 3-dose series) [place], [place] Start: 2011 Varicella Vaccine (1 of 2 - 13+ 2-dose series) Varicella Vaccine (1 of 2 - 13+ 2-dose series) [place], [place] Start: 2009 HPV vaccine (1 - 2-d ose series) HPV vaccine (1 - 2-dose series) [facility] Start: 1999 Varicella vaccine (1 of 2 - 2-dose childhood series) Varicella vaccine (1 of 2 - 2-dose childhood series) [facility] End: 12-13-2021 CBC W Auto Differential panel - Blood CBC with Auto Differential Lab Routine Diarrhea, unspecified type Blood in stool, gustavo 1 Occurrences starting 12/13/2021 until 12/13/2021 [employer] Phone: Comment on above: 1 Occurrences starti ng 12/13/2021 until 12/13/2021 End: 12-13-2021 Celiac Disease Panel Celiac Disease Panel Lab Routine Diarrhea, unspecified type Abdominal cramping 1 Occurrences starting 12/13/2021 until 12/13/2021 [employer] Phone: Comment on above: 1 Occurrences starti ng 12/13/2021 until 12/13/2021 End: 12-13-2021 Celiac Plus [employer] Phone: Comment on above: Once for 1 Occurrenc es starting 12/13/2021 until 12/13/2021 End: 12-13-2021 Comprehensive metabolic 2000 panel - Serum or Plasma Comprehensive Metabolic Panel Lab Routine Blood in stool, gustavo Gastroesophageal reflux disease without esophagitis 1 Occurrences starting 12/13/2021 until 12/13/2021 [employer] Phone: Comment on above: 1 Occurrences starti ng 12/13/2021 until 12/13/2021 End: 03-01-2019 Varicella Zoster Antibody, IgG Varicella Zoster Antibody, IgG Lab Routine Need for varicella vaccine 1 Occurrences starting 03/01/2019 until 03/01/2019 [place], [place] Comment on above: 1 Occurrences starti ng 03/01/2019 until 03/01/2019 Varicella Zoster Antibody, IgG Varicella Zoster Antibody, IgG Lab Routine Need for varicella vaccine 03/01/2019 11:50 AM EDT [place], [place] Immunizations Immunization Date Immunization Notes Care Provider Fa cili 09-18-2021 COVID-19, Pfizer Pur ple top, DILUTE for use, 12+ yrs, 30mcg/0.3mL dose Arpit Parekh ROLLER INSPECTOR - TELEPHONE DIRECTORY DISTRIBUTOR DRIVER Work Phone: [facility] [employer] Phone: 11-27-2019 Hepatitis B vaccine (recombinant), CpG adjuvanted Arpit Parekh ROLLER INSPECTOR - TELEPHONE DIRECTORY DISTRIBUTOR DRIVER Work Phone: [facility] [employer] Work Phone: 11-27-2019 tetanus toxoid, redu gordon diphtheria toxoid, and acellular pertussis vaccine, adsorbed Arpit Parekh [facility] Work Phone: [facility] [employer] Work Phone: 03-27-2019 hepatitis B vaccine, adult dosage Arpit Parekh [facility] Work Phone: [facility] [employer] Work Phone: 03-27-2019 measles, mumps and rubella virus vaccine Arpit Parekh [facility] [employer] [facility] Work Phone: [facility] [employer] Work Phone: 03-03-2019 measles, mumps and rubella virus vaccine Arpit Parekh [facility] Work Phone: [facility] [employer] Work Phone: 02-25-2019 hepatitis B vaccine, adult dosage Arpit Parekh [facility] [employer] [facility] Payers Date Payer Category Payer Unknown [id number] 2022 Private Health Insurance [id number] 2018 Unknown BCBS [place] - [place] P PO xxxxxxxxxxxx 2018-Present [address] [place] [address] xxxxxxxxxxxx [id number] 2018 Unknown [id number] 1998 Unknown [id number] [id number] .174 1998 Unknown [id number] [id number] .174 1998 Unknown [id number] 2.16.840.1.218128.3.579.2 .1259 1998 Unknown [id number] 2.16.840.1.046141.3.579.2 .9 1998 Unknown [id number] 2.16.840.1.710508.3.579.2 .9 1998 Unknown [id number] 2.16.840.1.736586.3.579.2 .9 1998 Unknown [id number] 2.16.840.1.276575.3.579.2 .1258 1998 Unknown [id number] 2.16.840.1.682872.3.579.2 .1258 1998 Unknown [id number] 2.16.840.1.415878.3.579.2 .9 1998 Unknown [id number] 2.16.840.1.644100.3.579.2 .1258 1998 Unknown [id number] 2.16.840.1.243644.3.579.2 .9 Social History Date Type Detail Facility Start: 04-25-2016 End: 11-26-2018 Tobacco smoking status NHIS Never smoker [place], [place] Start: 11-26-2018 [facility] [place] [place] Start: 1998 Sex Assigned At Not on file [place], [place] Start: 04-25-2016 Tobacco use and exposure Smokeless tobacco non-user [facility] [employer] Phone: Start: 12-13-2021 Alcohol intake Current non-dr kiln car repairer of alcohol (finding) [facility] Start: 12-13-2021 History SDOH Financial 5 [employer] Phone: Start: 12-13-2021 History 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 1 [employer] Phone: Evaluation note Note Date & Type Note Facility Evaluation note Diagnosis Blood in stool, gustavo Blood in stool Gastroesophageal reflux disease without esophagitis Esophageal reflux Diarrhea, unspecified type Abdominal cramping Abdominal pain, unspecified site documented in this encounter 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 M[facility] Work Phone: Assessments Diagnosis Need for varicella vaccine Need for prophylactic vaccination and inoculation against varicella Advance Directives No Advanced Directives Records FoundDocuments on File Type Date Recorded Patient Line Helper Expl anation Advance Directives and Living Will Power of Magnetic Healer Documents on File Type Date Recorded Patient Line Helper Expl anation ACP-Advance Directive ACP-Power of Magnetic Healer Summary Purpose Family History No Family History Records FoundNo Family History Records Found Additional Source Comments Care Teams (unrecognized sec tion and content) Inspector Final Assembly Conveyor Line Relationship Specialty Start Date End Date Arpit Parekh, 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 FOR RECORDS PERTAINING TO PATIENTS WHO ARE [...] BE BASED ON THE PRIMARY CLINICAL RECORDS. [employer] provides no warranty or guarantee of the accuracy or completeness of information in this document.
--- OUTSIDE RECORDS SUMMARY | 2023-11-11 09:05 | XMS_ITS | CCD ---
Author Organization [facility] Care Team Providers Care Surgical Scrub Technologist Name Role Phone Arpit Parekh Primary Care [...] 05-30-2023 Abs. Basophil 0.01 k/uL Normal 0.00-0.20 [facility] [place] Comment on above: Performed By: #### C DP, CP #### [facility] [address] [place] [address] Parts Salvager: Mike Forde MD Abs.Imm.Granulocyte 0.01 k/uL Normal 0.00-0.30 [facility] Comment on above: Performed By: #### C DP, CP #### [facility] [address] [place] [address] Parts Salvager: Mike Forde MD Abs.Neutrophil (Seg) 6.24 k/uL Normal 2.5-7.0 [facility] Comment on above: Performed By: #### C DP, CP #### [facility] [address] [place] [address] Parts Salvager: Mike Forde MD Basophils/100 WBC (Bld) 0 % Normal 0-2 [facility] Comment on above: Performed By: #### C DP, CP #### [facility] [address] [place] [address] Parts Salvager: Mike Forde MD Eosinophils (Bld) [#/Vol] 0.00 10*3/uL Normal 0.00-0.40 [facility] Comment on above: Performed By: #### C DP, CP #### [facility] [address] [place] [address] Parts Salvager: Mike Forde MD Eosinophils/100 WBC (Bld) 0 % Normal 0-5 [facility] Comment on above: Performed By: #### C DP, CP #### [facility] [address] [place], [place] [id number] Parts Salvager: Mike Forde MD Erythrocyte distribution width (RBC) [Ratio] 11.9 % Low 12.1-15.2 [facility] Comment on above: Performed By: #### C DP, CP #### [facility] [address] [place], [place] [id number] Parts Salvager: Mike Forde MD Hematocrit (Bld) [Volume fraction] 41.1 % Normal 36.0-46.0 [facility] Comment on above: Performed By: #### C DP, CP #### [facility] [address] [place] [address] Parts Salvager: Mike Forde MD Hemoglobin (Bld) [Mass/Vol] 14.5 g/dL Normal 12.0-16.0 [facility] Comment on above: Performed By: #### C DP, CP #### [facility] [address] [place] [address] Parts Salvager: Mike Forde MD Immature granulocytes/100 WBC (Bld) 0 % Normal 0-5 [facility] Comment on above: Performed By: #### C DP, CP #### [facility] [address] [place], [place] [id number] Parts Salvager: Mike Forde MD Lymphocytes (Bld) [#/Vol] 1.74 10*3/uL Normal 1.00-4.80 [facility] Comment on above: Performed By: #### C DP, CP #### [facility] [address] [place] [address] Parts Salvager: Mike Forde MD Lymphocytes/100 WBC (Bld) 21 % Normal 15-40 [facility] Comment on above: Performed By: #### C DP, CP #### [facility] [address] [place] [address] Parts Salvager: Mike Forde MD MCH (RBC) [Entitic mass] 29.2 pg Normal 26.0-34.0 [facility] Comment on above: Performed By: #### C DP, CP #### [facility] [address] [place] [address] Parts Salvager: Mike Forde MD MCHC (RBC) [Mass/Vol] 35.3 g/dL Normal 31.0-37.0 [facility] Comment on above: Performed By: #### C DP, CP #### [facility] [address] [place] [address] Parts Salvager: Mike Forde MD MCV (RBC) [Entitic vol] 82.9 fL Normal 80.0-100.0 [facility] Comment on above: Performed By: #### C DP, CP #### [facility] [address] [place] [address] Parts Salvager: Mike Forde MD Monocytes (Bld) [#/Vol] 0.50 10*3/uL Normal 0.00-1.00 [facility] Comment on above: Performed By: #### C DP, CP #### [facility] [address] [place] [address] Parts Salvager: Mike Forde MD Monocytes/100 WBC (Bld) 6 % Normal 4-8 [facility] Comment on above: Performed By: #### C DP, CP #### [facility] [address] [place] [address] Parts Salvager: Mike Forde MD Neutrophil (Seg) 73 % Normal 47-75 [facility] Comment on above: Performed By: #### C DP, CP #### [facility] [address] [place], [place] [id number] Parts Salvager: Mike Forde MD Platelet mean volume (Bld) [Entitic vol] 10.4 fL Normal 6.0-12.0 [facility] Comment on above: Performed By: #### C DP, CP #### [facility] [address] [place], [place] [phone] ([phone]) Parts Salvager: Mike Forde MD Platelets (Bld) [#/Vol] 227 10*3/uL Normal 140-450 [facility] Comment on above: Performed By: #### C DP, CP #### [facility] [address] [place], [place] [id number] (440) Parts Salvager: Mike Forde MD RBC (Bld) [#/Vol] 4.96 10*6/uL Normal 4.00-5.20 [facility] Comment on above: Performed By: #### C DP, CP #### [facility] [address] [place], [place] [id number] Parts Salvager: Mike Forde MD WBC (Bld) [#/Vol] 8.5 10*3/uL Normal 3.5-11.0 [facility] Comment on above: Performed By: #### C DP, CP #### [facility] [address] [place], [place] [id number] Parts Salvager: Mike Forde MD Comp Metabolic Profon 2022 Albumin [Mass/Vol] 4.2 g/dL Normal 3.5-5.2 [facility] Comment on above: Performed By: #### C DP, CP #### [facility] [address] [place] [address] Parts Salvager: Mike Forde MD Alkaline Phos 48 U/L Normal 35-104 [facility] [place] Comment on above: Performed By: #### C DP, CP #### [facility] [address] [place] [address] Parts Salvager: Mike Forde MD ALT [Catalytic activity/Vol] 12 U/L Normal 5-33 [facility] Comment on above: Performed By: #### C DP, CP #### [facility] [address] [place], [place] [id number] Parts Salvager: Mike Forde MD Anion gap [Moles/Vol] 15 mmol/L Normal 9-17 [facility] Comment on above: Performed By: #### C DP, CP #### [facility] [address] [place], [place] [id number] Parts Salvager: Mike Forde MD AST [Catalytic activity/Vol] 11 U/L Normal <32 [facility] Comment on above: Performed By: #### C DP, CP #### [facility] [address] [place] [address] Parts Salvager: Mike Forde MD Bilirubin [Mass/Vol] mg/dL Low 0.3-1.2 [facility] Comment on above: Performed By: #### C DP, CP #### [facility] [address] [place] [address] Parts Salvager: Mike Forde MD BUN/CRE Ratio 14 Normal 9-20 [facility] [place] Comment on above: Performed By: #### C DP, CP #### [facility] [address] [place], [place] [id number] Parts Salvager: Mike Forde MD Calcium [Mass/Vol] 9.7 mg/dL Normal 8.6-10.4 [facility] Comment on above: Performed By: #### C DP, CP #### [facility] [address] [place] [address] Parts Salvager: Mike Forde MD Chloride [Moles/Vol] 101 mmol/L Normal 98-107 [facility] Comment on above: Performed By: #### C DP, CP #### [facility] [address] [place], [place] [id number] Parts Salvager: Mike Forde MD CO2 [Moles/Vol] 22 mmol/L Normal 20-31 [facility] Comment on above: Performed By: #### C DP, CP #### [facility] [address] [place], [place] [id number] Parts Salvager: Mike Forde MD Creatinine [Mass/Vol] 0.5 mg/dL Normal 0.5-0.9 [facility] Comment on above: Performed By: #### C DP, CP #### [facility] [address] [place] [address] Parts Salvager: Mike Forde MD GFR/1.73 sq M.predicted among non-blacks MDRD (S/P/Bld) [Vol rate/Area] mL/min/{1.73_m2} Normal >60 [facility] Comment on above: Result Comment: [...] Performed By: #### C DP, CP #### [facility] [address] [place], [place] [phone] Parts Salvager: Mike Forde MD Glucose [Mass/Vol] 90 mg/dL Normal 70-99 [facility] Comment on above: Performed By: #### C DP, CP #### [facility] [address] [place], [place] [id number] Parts Salvager: Mike Forde MD Potassium [Moles/Vol] 3.5 mmol/L Low 3.7-5.3 [facility] Comment on above: Performed By: #### C DP, CP #### [facility] [address] [place], [place] [id number] Parts Salvager: Mike Forde MD Protein [Mass/Vol] 7.5 g/dL Normal 6.4-8.3 [facility] Comment on above: Performed By: #### C DP, CP #### [facility] [address] [place], [place] [id number] Parts Salvager: Mike Forde MD Sodium [Moles/Vol] 138 mmol/L Normal 135-144 [facility] Comment on above: Performed By: #### C DP, CP #### [facility] [address] [place], [place] [id number] Parts Salvager: Mike Forde MD Urea nitrogen [Mass/Vol] 7 mg/dL Normal 6-20 [facility] Comment on above: Performed By: #### C DP, CP #### [facility] [address] [place], [place] [id number] Parts Salvager: Mike Forde MD Basic Metabolic Profon 04-16 Anion gap [Moles/Vol] 15 mmol/L Normal 9-17 [facility] Comment on above: Performed By: #### C DP, BMP #### [facility] [address] [place], [place] [id number] Parts Salvager: Mike Forde MD BUN/CRE Ratio 10 Normal 9-20 [facility] [place] Comment on above: Performed By: #### C DP, BMP #### [facility] [address] [place], [place] [id number] Parts Salvager: Mike Forde MD Calcium [Mass/Vol] 10.2 mg/dL Normal 8.6-10.4 [facility] Comment on above: Performed By: #### C DP, BMP #### [facility] [address] [place], [place] [phone] Parts Salvager: Mike Forde MD Chloride [Moles/Vol] 98 mmol/L Normal 98-107 [facility] Comment on above: Performed By: #### C DP, BMP #### [facility] [address] [place], [place] 1600390 Parts Salvager: Mike Forde MD CO2 [Moles/Vol] 22 mmol/L Normal 20-31 [facility] Comment on above: Performed By: #### C DP, BMP #### [facility] [address] [place], [place] [id number] Parts Salvager: Mike Forde MD Creatinine [Mass/Vol] 0.7 mg/dL Normal 0.5-0.9 [facility] Comment on above: Performed By: #### C DP, BMP #### [facility] [address] [place] [address] Parts Salvager: Mike Forde MD GFR/1.73 sq M.predicted among non-blacks MDRD (S/P/Bld) [Vol rate/Area] mL/min/{1.73_m2} Normal >60 [facility] Comment on above: Result Comment: [...] Performed By: #### C DP, BMP #### [facility] [address] [place] [address] Parts Salvager: Mike Forde MD Glucose [Mass/Vol] 113 mg/dL High 70-99 [facility] Comment on above: Performed By: #### C DP, BMP #### [facility] [address] [place], [place] [id number] Parts Salvager: Mike Forde MD Potassium [Moles/Vol] 3.4 mmol/L Low 3.7-5.3 [facility] Comment on above: Performed By: #### C DP, BMP #### [facility] [address] [place] [address] Parts Salvager: Mike Forde MD Sodium [Moles/Vol] 135 mmol/L Normal 135-144 [facility] Comment on above: Performed By: #### C DP, BMP #### [facility] [address] [place] [id number] Parts Salvager: Mike Forde MD Urea nitrogen [Mass/Vol] 7 mg/dL Normal 6-20 [facility] Comment on above: Performed By: #### C DP, BMP #### [facility] [address] [place] [address] Parts Salvager: Mike Forde MD CBC with Diffon 04-16-2023 Abs. Basophil 0.03 k/uL Normal 0.00-0.20 [facility] [place] Comment on above: Performed By: #### C DP, BMP #### [facility] [address] [place] [id number] Parts Salvager: Mike Forde MD Abs.Imm.Granulocyte 0.02 k/uL Normal 0.00-0.30 [facility] Comment on above: Performed By: #### C DP, BMP #### [facility] [address] [place] [address] Parts Salvager: Mike Forde MD Abs.Neutrophil (Seg) 7.51 k/uL High 2.5-7.0 [facility] Comment on above: Performed By: #### C DP, BMP #### [facility] [address] [place] [address] Parts Salvager: Mike Forde MD Basophils/100 WBC (Bld) 0 % Normal 0-2 [facility] Comment on above: Performed By: #### C DP, BMP #### [facility] [address] [place] [id number] Parts Salvager: Mike Forde MD Eosinophils (Bld) [#/Vol] 0.03 10*3/uL Normal 0.00-0.40 [facility] Comment on above: Performed By: #### C DP, BMP #### [facility] [address] [place] [id number] Parts Salvager: Mike Forde MD Eosinophils/100 WBC (Bld) 0 % Normal 0-5 [facility] Comment on above: Performed By: #### C DP, BMP #### [facility] [address] [place] [address] Parts Salvager: Mike Forde MD Erythrocyte distribution width (RBC) [Ratio] 11.8 % Low 12.1-15.2 [facility] Comment on above: Performed By: #### C DP, BMP #### [facility] [address] [place] [address] Parts Salvager: Mike Forde MD Hematocrit (Bld) [Volume fraction] 43.4 % Normal 36.0-46.0 [facility] Comment on above: Performed By: #### C DP, BMP #### [facility] [address] [place] [id number] Parts Salvager: Mike Forde MD Hemoglobin (Bld) [Mass/Vol] 15.5 g/dL Normal 12.0-16.0 [facility] Comment on above: Performed By: #### C DP, BMP #### [facility] [address] [place] [id number] Parts Salvager: Mike Forde MD Immature granulocytes/100 WBC (Bld) 0 % Normal 0-5 [facility] Comment on above: Performed By: #### C DP, BMP #### [facility] [address] [place] [id number] Parts Salvager: Mike Forde MD Lymphocytes (Bld) [#/Vol] 2.33 10*3/uL Normal 1.00-4.80 [facility] Comment on above: Performed By: #### C DP, BMP #### [facility] [address] [place], [place] [phone] Parts Salvager: Mike Forde MD Lymphocytes/100 WBC (Bld) 22 % Normal 15-40 [facility] Comment on above: Performed By: #### C DP, BMP #### [facility] [address] [place] [address] Parts Salvager: Mike Forde MD MCH (RBC) [Entitic mass] 28.9 pg Normal 26.0-34.0 [facility] Comment on above: Performed By: #### C DP, BMP #### [facility] [address] [place] [address] Parts Salvager: Mike Forde MD MCHC (RBC) [Mass/Vol] 35.7 g/dL Normal 31.0-37.0 [facility] Comment on above: Performed By: #### C DP, BMP #### [facility] [address] [place] [id number] Parts Salvager: Mike Forde MD MCV (RBC) [Entitic vol] 80.8 fL Normal 80.0-100.0 [facility] Comment on above: Performed By: #### C DP, BMP #### [facility] [address] [place] [address] Parts Salvager: Mike Forde MD Monocytes (Bld) [#/Vol] 0.88 10*3/uL Normal 0.00-1.00 [facility] Comment on above: Performed By: #### C DP, BMP #### [facility] [address] [place] [address] Parts Salvager: Mike Forde MD Monocytes/100 WBC (Bld) 8 % Normal 4-8 [facility] Comment on above: Performed By: #### C DP, BMP #### [facility] [address] [place], [place] [phone] (468) Parts Salvager: Mike Forde MD Neutrophil (Seg) 70 % Normal 47-75 [facility] Comment on above: Performed By: #### C DP, BMP #### [facility] [address] [place] [address] (846) Parts Salvager: Mike Forde MD Platelet mean volume (Bld) [Entitic vol] 10.5 fL Normal 6.0-12.0 [facility] Comment on above: Performed By: #### C DP, BMP #### [facility] [address] [place], [place] [phone] (625) Parts Salvager: Mike Forde MD Platelets (Bld) [#/Vol] 279 10*3/uL Normal 140-450 [facility] Comment on above: Performed By: #### C DP, BMP #### [facility] [address] [place] [address] (818) Parts Salvager: Mike Forde MD RBC (Bld) [#/Vol] 5.37 10*6/uL High 4.00-5.20 [facility] Comment on above: Performed By: #### C DP, BMP #### [facility] [address] [place] [address] Parts Salvager: Mike Forde MD WBC (Bld) [#/Vol] 10.8 10*3/uL Normal 3.5-11.0 [facility] Comment on above: Performed By: #### C DP, BMP #### [facility] [address] [place] [address] (196) Parts Salvager: Mike Forde MD CBC with Auto Differentialon 12-13-2021 Absolute Eos # 0.00 [facility] Absolute Lymph # 1.90 [facility] Absolute Dixon # 0.50 [facility] Basophils (Bld) [#/Vol] 0.00 10*3/uL [facility] Basophils/100 WBC (Bld) 0 % 0 - 2 % [facility] Differential Type YES [facility] Eosinophils/100 WBC (Bld) 0 % 0 - 5 % [facility] Hematocrit (Bld) [Volume fraction] 43.5 % 36 - 46 % [facility] Hemoglobin (Bld) [Mass/Vol] 14.6 g/dL 12.0 - 16.0 g/dL [facility] Lymphocytes/100 WBC (Bld) 21 % 15 - 40 % [facility] MCH (RBC) [Entitic mass] 28.9 pg 26 - 34 pg [facility] MCHC (RBC) [Mass/Vol] 33.5 g/dL 31 - 37 g/dL [facility] MCV (RBC) [Entitic vol] 86.2 fL 80 - 100 fL [facility] Monocytes/100 WBC (Bld) 5 % 4 - 8 % [facility] Platelet distribution width (Bld) [Ratio] 12.3 % 12.1 - 15.2 % [facility] Platelets (Bld) [#/Vol] 265 10*3/uL [facility] RBC (Bld) [#/Vol] 5.05 10*6/uL 4.0 - 5.2 m/uL [facility] Segmented neutrophils/100 WBC (Bld) 74 % 47 - 75 % [facility] Segs Absolute 6.60 [facility] WBC (Bld) [#/Vol] 9.1 10*3/uL [facility] Comprehensive Metabolic Pane davi 12-13-2021 Albumin [Mass/Vol] 4.3 g/dL 3.5 - 5.2 g/dL [facility] ALP (Bld) [Catalytic activity/Vol] 77 U/L 35 - 104 U/L [facility] ALT [Catalytic activity/Vol] 23 U/L 5 - 33 U/L [facility] Anion gap [Moles/Vol] 11 mmol/L 9 - 17 mmol/L [facility] AST [Catalytic activity/Vol] 15 U/L <32 [facility] Bilirubin [Mass/Vol] 0.51 mg/dL 0.30 - 1.20 mg/dL [facility] Calcium [Mass/Vol] 9.6 mg/dL 8.6 - 10.4 mg/dL [facility] Chloride [Moles/Vol] 102 mmol/L 98 - 107 mmol/L [facility] CO2 [Moles/Vol] 25 mmol/L 20 - 31 mmol/L [facility] Creatinine [Mass/Vol] 0.77 mg/dL 0.50 - 0.90 mg/dL [facility] Free PSA/Total PSA [Mass fraction] 7.4 g/dL 6.4 - 8.3 g/dL [facility] GFR >60 >60 mL/min [facility] GFR Non- >60 >60 mL/min [facility] GFR/1.73 sq M.predicted MDRD (S/P/Bld) [Vol rate/Area] [facility] Comment on above: Average GFR for 20-2 9 years old: 116 mL/min/1.73sq m Chronic Kidney Disease: <60 mL/min/1.73sq m Kidney failure: <15 mL/min/1.73sq m eGFR calculated using average adult body mass. Additional eGFR calculator available at: http://www.Skedo.Jellyvision/multiple_crcl_2011.htm Glucose [Mass/Vol] 93 mg/dL 70 - 99 mg/dL [facility] Potassium [Moles/Vol] 4.2 mmol/L 3.7 - 5.3 mmol /L [facility] Sodium [Moles/Vol] 138 mmol/L 135 - 144 mmol/L [facility] Urea nitrogen (BldV) [Mass/Vol] 9 mg/dL 6 - 20 mg/dL [facility] Urea nitrogen/Creatinine (Bld) [Mass ratio] 12 [facility] Encounters Encounter Date Encounter Type [...] 05-31-2023 Emergency department patient visit TERRENCE WOLF [facility] Start: 04-16-2023 End: 04-17-2023 [facility] Start: 12-13-2021 End: 12-13-2021 Subsequent hospital visit by physician Arpit Leblanc CNP Work Phone: [employer] [facility] Comment on above: Blood in stool, zeina k; Gastroesophageal reflux disease without esophagitis; Diarrhea, unspecified type; Abdominal cramping Start: 03-01-2019 End: 03-01-2019 Subsequent hospital visit by physician Arpit Parekh [facility] Comment on above: Need for varicella v accine Procedures Date Procedure Procedure Detail Performing Clinician Start: 12-13-2021 Comprehensive metabo lic panel Arpit Leblanc [employer] Work Phone: Plan of Treatment Date Care Activity Detail Author Start: 11-26-2029 DTaP/Tdap/Td vaccine (3 - Td or Tdap) DTaP/Tdap/Td vaccine (3 - Td or Tdap) [facility] Start: 12-13-2022 Depression Screen Depression Screen [facility] Start: 03-14-2022 COVID-19 Vaccine (3 - Booster for Pfizer series) COVID-19 Vaccine (3 - Booster for Pfizer series) [facility] Start: 03-10-2022 Influenza vaccination Flu vaccine (S angelo Ended) [facility] Start: 01-11-2022 End: 01-11-2022 Patient encounter procedure 01/11/2022 Office Visit Family Medicine Arpit Parekh, [employer] - [employer] [address] [place] [address] [facility] Start: 2019 Screening for malign ant neoplasm of cervix Pap smear [facility] Start: 03-10-2019 Influenza vaccination Flu vaccine (# 1) [place], [place] Start: 2017 DTaP/Tdap/Td vaccine (1 - Tdap) DTaP/Tdap/Td vaccine (1 - Tdap) [place], [place] Start: 2016 Hepatitis C screening Hepatitis C sc reen [facility] Start: 2014 Chlamydia screen Chlamydia screen [place], [place] Start: 2014 Screening for Chlamy nathalie trachomatis Chlamydia screen [facility] Start: 2013 HIV screen HIV screen [place], [place] Start: 2013 HIV screening HIV screen [facility] Start: 2013 HPV vaccine (1 - Fem dana 3-dose series) HPV vaccine (1 - Female 3-dose series) [place], [place] Start: 2011 Varicella Vaccine (1 of 2 - 13+ 2-dose series) Varicella Vaccine (1 of 2 - 13+ 2-dose series) [place], [place] Start: 2009 HPV vaccine (1 - 2-d ose series) HPV vaccine (1 - 2-dose series) [facility] Start: 1999 Varicella vaccine (1 of 2 - 2-dose childhood series) Varicella vaccine (1 of 2 - 2-dose childhood series) [facility] End: 12-13-2021 CBC W Auto Differential panel - Blood CBC with Auto Differential Lab Routine Diarrhea, unspecified type Blood in stool, gustavo 1 Occurrences starting 12/13/2021 until 12/13/2021 [employer] Phone: Comment on above: 1 Occurrences starti ng 12/13/2021 until 12/13/2021 End: 12-13-2021 Celiac Disease Panel Celiac Disease Panel Lab Routine Diarrhea, unspecified type Abdominal cramping 1 Occurrences starting 12/13/2021 until 12/13/2021 [employer] Phone: Comment on above: 1 Occurrences starti ng 12/13/2021 until 12/13/2021 End: 12-13-2021 Celiac Plus [employer] Phone: Comment on above: Once for 1 Occurrenc es starting 12/13/2021 until 12/13/2021 End: 12-13-2021 Comprehensive metabolic 2000 panel - Serum or Plasma Comprehensive Metabolic Panel Lab Routine Blood in stool, gustavo Gastroesophageal reflux disease without esophagitis 1 Occurrences starting 12/13/2021 until 12/13/2021 [employer] Phone: Comment on above: 1 Occurrences starti ng 12/13/2021 until 12/13/2021 End: 03-01-2019 Varicella Zoster Antibody, IgG Varicella Zoster Antibody, IgG Lab Routine Need for varicella vaccine 1 Occurrences starting 03/01/2019 until 03/01/2019 [place], [place] Comment on above: 1 Occurrences starti ng 03/01/2019 until 03/01/2019 Varicella Zoster Antibody, IgG Varicella Zoster Antibody, IgG Lab Routine Need for varicella vaccine 03/01/2019 11:50 AM EDT [place], [place] Immunizations Immunization Date Immunization Notes Care Provider Fa cili 09-18-2021 COVID-19, Pfizer Pur ple top, DILUTE for use, 12+ yrs, 30mcg/0.3mL dose Arpit Parekh [employer]EARCH [employer]NAGER [employer] Work Phone: [facility] [employer] Phone: 11-27-2019 Hepatitis B vaccine (recombinant), CpG adjuvanted Arpit Parekh [employer] RESEARCH MANAGER [employer] Work Phone: [facility] [employer] Work Phone: 11-27-2019 tetanus toxoid, redu gordon diphtheria toxoid, and acellular pertussis vaccine, adsorbed [facility]pit Parekh [facility] Work Phone: [facility] [employer] Work Phone: 03-27-2019 hepatitis B vaccine, adult dosage Arpit Parekh [facility] Work Phone: [facility] [employer] Work Phone: 03-27-2019 measles, mumps and rubella virus vaccine Arpit Praekh [facility] [employer] [facility] Work Phone: [facility] [employer] Work Phone: 03-03-2019 measles, mumps and rubella virus vaccine Arpit Parekh [facility] Work Phone: [facility] [employer] Work Phone: 02-25-2019 hepatitis B vaccine, adult dosage Arpit Parekh [facility] [employer] [facility] Payers Date Payer Category Payer Unknown [id number] 2022 Private Health Insurance [id number] 2018 Unknown BCBS [place] - [place] P PO xxxxxxxxxxxx 2018-Present [address] [place] [address] xxxxxxxxxxxx [id number] 2018 Unknown [id number] 1998 Unknown [id number] [id number] .174 1998 Unknown [id number] 2.16.840.1.263808.3.579.2 .174 1998 Unknown [id number] 2.16.840.1.536242.3.579.2 .1259 1998 Unknown [id number] 2.16.840.1.049002.3.579.2 .9 1998 Unknown [id number] 2.16.840.1.093521.3.579.2 .9 1998 Unknown [id number] 2.16.840.1.864664.3.579.2 .9 1998 Unknown [id number] 2.16.840.1.508398.3.579.2 .1258 1998 Unknown [id number] 2.16.840.1.810142.3.579.2 .1258 1998 Unknown [id number] 2.16.840.1.943375.3.579.2 .9 1998 Unknown [id number] 2.16.840.1.523592.3.579.2 .1258 1998 Unknown [id number] 2.16.840.1.977832.3.579.2 .9 Social History Date Type Detail Facility Start: 04-25-2016 End: 11-26-2018 Tobacco smoking status NHIS Never smoker [place] Start: 11-26-2018 [facility] [place] [place] Start: 1998 Sex Assigned At Not on file [place], [place] Start: 04-25-2016 Tobacco use and exposure Smokeless tobacco non-user [facility] [employer] Phone: Start: 12-13-2021 Alcohol intake Current non-dr benefits specialist of alcohol (finding) [facility] Phone: Start: 12-13-2021 History SDOH Financial 5 [employer] Phone: Start: 12-13-2021 History 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 1 [employer] Phone: Evaluation note Note Date & Type Note Facility Evaluation note Diagnosis Blood in stool, gustavo Blood in stool Gastroesophageal reflux disease without esophagitis Esophageal reflux Diarrhea, unspecified type Abdominal cramping Abdominal pain, unspecified site documented in this encounter 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 [facility] Work Phone: Assessments Diagnosis Need for varicella vaccine Need for prophylactic vaccination and inoculation against varicella Advance Directives No Advanced Directives Records FoundDocuments on File Type Date Recorded Patient Snow Blower Expl anation Advance Directives and Living Will Power of Senior Systems Engineer Documents on File Type Date Recorded Patient Snow Blower Expl anation ACP-Advance Directive ACP-Power of Senior Systems Engineer Summary Purpose Family History No Family History Records FoundNo Family History Records Found Additional Source Comments Care Teams (unrecognized sec tion and content) Surgical Scrub Technologist Relationship Specialty Start Date End Date Arpit Parekh, MARKET RESEARCH MANAGER [employer] [address] [place] [address] PCP - General Nurse Practitioner 11/23/16 INFORMATION SOURCE (unrecogn ized section and content) DATE CREATED AUTHOR 06/02/2023 [facility] DATE CREATED AUTHOR AUTHOR'S ORGANIZ ATION 11/06/2023 [facility] FOR RECORDS PERTAINING TO PATIENTS WHO ARE [...] BE BASED ON THE PRIMARY CLINICAL RECORDS. [employer] provides no warranty or guarantee of the accuracy or completeness of information in this document.
--- OUTSIDE RECORDS SUMMARY | 2023-11-11 09:05 | XMS_ITS | CCD ---
Author Organization [facility] Care Team Providers Care Shark Biologist Name Role Phone Arpit Parekh [facility] [...] 05-30-2023 Abs. Basophil 0.01 k/uL Normal 0.00-0.20 [facility] Comment on above: Performed By: #### C DP, CP #### [facility] [address] [place] [address] Tag Machine Operator: Mike Forde MD Abs.Imm.Granulocyte 0.01 k/uL Normal 0.00-0.30 [facility] Comment on above: Performed By: #### C DP, CP #### [facility] [address] [place] [address] Tag Machine Operator: Mike Forde MD Abs.Neutrophil (Seg) 6.24 k/uL Normal 2.5-7.0 [facility] Comment on above: Performed By: #### C DP, CP #### [facility] [address] [place] [address] Tag Machine Operator: Mike Forde MD Basophils/100 WBC (Bld) 0 % Normal 0-2 [facility] Comment on above: Performed By: #### C DP, CP #### [facility] [address] [place] [address] Tag Machine Operator: Mike Forde MD Eosinophils (Bld) [#/Vol] 0.00 10*3/uL Normal 0.00-0.40 [facility] Comment on above: Performed By: #### C DP, CP #### [facility] [address] [place] [address] Tag Machine Operator: Mike Forde MD Eosinophils/100 WBC (Bld) 0 % Normal 0-5 [facility] Comment on above: Performed By: #### C DP, CP #### [facility] [address] [place], [place] [id number] Tag Machine Operator: Mike Forde MD Erythrocyte distribution width (RBC) [Ratio] 11.9 % Low 12.1-15.2 [facility] Comment on above: Performed By: #### C DP, CP #### [facility] [address] [place], [place] [id number] Tag Machine Operator: Mike Forde MD Hematocrit (Bld) [Volume fraction] 41.1 % Normal 36.0-46.0 [facility] Comment on above: Performed By: #### C DP, CP #### [facility] [address] [place] [address] Tag Machine Operator: Mike Forde MD Hemoglobin (Bld) [Mass/Vol] 14.5 g/dL Normal 12.0-16.0 [facility] Comment on above: Performed By: #### C DP, CP #### [facility] [address] [place] [address] Tag Machine Operator: Mike Forde MD Immature granulocytes/100 WBC (Bld) 0 % Normal 0-5 [facility] Comment on above: Performed By: #### C DP, CP #### [facility] [address] [place], [place] [id number] Tag Machine Operator: Mike Forde MD Lymphocytes (Bld) [#/Vol] 1.74 10*3/uL Normal 1.00-4.80 [facility] Comment on above: Performed By: #### C DP, CP #### [facility] [address] [place] [address] Tag Machine Operator: Mike Forde MD Lymphocytes/100 WBC (Bld) 21 % Normal 15-40 [facility] Comment on above: Performed By: #### C DP, CP #### [facility] [address] [place] [address] Tag Machine Operator: Mike Forde MD MCH (RBC) [Entitic mass] 29.2 pg Normal 26.0-34.0 [facility] Comment on above: Performed By: #### C DP, CP #### [facility] [address] [place] [address] Tag Machine Operator: Mike Forde MD MCHC (RBC) [Mass/Vol] 35.3 g/dL Normal 31.0-37.0 [facility] Comment on above: Performed By: #### C DP, CP #### [facility] [address] [place] [address] Tag Machine Operator: Mike Forde MD MCV (RBC) [Entitic vol] 82.9 fL Normal 80.0-100.0 [facility] Comment on above: Performed By: #### C DP, CP #### [facility] [address] [place] [address] Tag Machine Operator: Mike Forde MD Monocytes (Bld) [#/Vol] 0.50 10*3/uL Normal 0.00-1.00 [facility] Comment on above: Performed By: #### C DP, CP #### [facility] [address] [place] [address] Tag Machine Operator: Mike Forde MD Monocytes/100 WBC (Bld) 6 % Normal 4-8 [facility] Comment on above: Performed By: #### C DP, CP #### [facility] [address] [place] [address] Tag Machine Operator: Mike Forde MD Neutrophil (Seg) 73 % Normal 47-75 [facility] Comment on above: Performed By: #### C DP, CP #### [facility] [address] [place], [place] [id number] Tag Machine Operator: Mike Forde MD Platelet mean volume (Bld) [Entitic vol] 10.4 fL Normal 6.0-12.0 [facility] Comment on above: Performed By: #### C DP, CP #### [facility] [address] [place], [place] [id number] ([phone]) Tag Machine Operator: Mike Forde MD Platelets (Bld) [#/Vol] 227 10*3/uL Normal 140-450 [facility] Comment on above: Performed By: #### C DP, CP #### [facility] [address] [place], [place] [id number] (122) Tag Machine Operator: Mike Forde MD RBC (Bld) [#/Vol] 4.96 10*6/uL Normal 4.00-5.20 [facility] Comment on above: Performed By: #### C DP, CP #### [facility] [address] [place], [place] [id number] Tag Machine Operator: Mike Forde MD WBC (Bld) [#/Vol] 8.5 10*3/uL Normal 3.5-11.0 [facility] Comment on above: Performed By: #### C DP, CP #### [facility] [address] [place], [place] [id number] Tag Machine Operator: Mike Forde MD Comp Metabolic Profon 2022 Albumin [Mass/Vol] 4.2 g/dL Normal 3.5-5.2 [facility] Comment on above: Performed By: #### C DP, CP #### [facility] [address] [place] [address] Tag Machine Operator: Mike Forde MD Alkaline Phos 48 U/L Normal 35-104 [facility] Comment on above: Performed By: #### C DP, CP #### [facility] [address] [place] [address] Tag Machine Operator: Mike Forde MD ALT [Catalytic activity/Vol] 12 U/L Normal 5-33 [facility] Comment on above: Performed By: #### C DP, CP #### [facility] [address] [place], [place] [id number] Tag Machine Operator: Mike Forde MD Anion gap [Moles/Vol] 15 mmol/L Normal 9-17 [facility] Comment on above: Performed By: #### C DP, CP #### [facility] [address] [place], [place] [id number] Tag Machine Operator: Mike Forde MD AST [Catalytic activity/Vol] 11 U/L Normal <32 [facility] Comment on above: Performed By: #### C DP, CP #### [facility] [address] [place] [address] Tag Machine Operator: Mike Forde MD Bilirubin [Mass/Vol] mg/dL Low 0.3-1.2 [facility] Comment on above: Performed By: #### C DP, CP #### [facility] [address] [place] [address] Tag Machine Operator: Mike Forde MD BUN/CRE Ratio 14 Normal 9-20 [facility] Comment on above: Performed By: #### C DP, CP #### [facility] [address] [place], [place] [id number] Tag Machine Operator: Mike Forde MD Calcium [Mass/Vol] 9.7 mg/dL Normal 8.6-10.4 [facility] Comment on above: Performed By: #### C DP, CP #### [facility] [address] [place] [address] Tag Machine Operator: Mike Forde MD Chloride [Moles/Vol] 101 mmol/L Normal 98-107 [facility] Comment on above: Performed By: #### C DP, CP #### [facility] [address] [place], [place] [id number] Tag Machine Operator: Mike Forde MD CO2 [Moles/Vol] 22 mmol/L Normal 20-31 [facility] Comment on above: Performed By: #### C DP, CP #### [facility] [address] [place], [place] [id number] Tag Machine Operator: Mike Forde MD Creatinine [Mass/Vol] 0.5 mg/dL Normal 0.5-0.9 [facility] Comment on above: Performed By: #### C DP, CP #### [facility] [address] [place] [address] Tag Machine Operator: Mike Forde MD GFR/1.73 sq M.predicted among non-blacks MDRD (S/P/Bld) [Vol rate/Area] mL/min/{1.73_m2} Normal >60 [facility] Comment on above: Result Comment: These [facility] [address] [place], [place] [phone] Tag Machine Operator: Mike Forde MD Glucose [Mass/Vol] 90 mg/dL Normal 70-99 [facility] Comment on above: Performed By: #### C DP, CP #### [facility] [address] [place], [place] [id number] Tag Machine Operator: Mike Forde MD Potassium [Moles/Vol] 3.5 mmol/L Low 3.7-5.3 [facility] Comment on above: Performed By: #### C DP, CP #### [facility] [address] [place], [place] [id number] Tag Machine Operator: Mike Forde MD Protein [Mass/Vol] 7.5 g/dL Normal 6.4-8.3 [facility] Comment on above: Performed By: #### C DP, CP #### [facility] [address] [place], [place] [id number] Tag Machine Operator: Mike Forde MD Sodium [Moles/Vol] 138 mmol/L Normal 135-144 [facility] Comment on above: Performed By: #### C DP, CP #### [facility] [address] [place], [place] [id number] Tag Machine Operator: Mike Forde MD Urea nitrogen [Mass/Vol] 7 mg/dL Normal 6-20 [facility] Comment on above: Performed By: #### C DP, CP #### [facility] [address] [place], [place] [id number] Tag Machine Operator: Mike Forde MD Basic Metabolic Profon 04-16 Anion gap [Moles/Vol] 15 mmol/L Normal 9-17 [facility] Comment on above: Performed By: #### C DP, BMP #### [facility] [address] [place], [place] [id number] Tag Machine Operator: Mike Forde MD BUN/CRE Ratio 10 Normal 9-20 [facility] Comment on above: Performed By: #### C DP, BMP #### [facility] [address] [place], [place] [id number] Tag Machine Operator: Mike Forde MD Calcium [Mass/Vol] 10.2 mg/dL Normal 8.6-10.4 [facility] Comment on above: Performed By: #### C DP, BMP #### [facility] [address] [place], [place] [id number] Tag Machine Operator: Mike Forde MD Chloride [Moles/Vol] 98 mmol/L Normal 98-107 [facility] Comment on above: Performed By: #### C DP, BMP #### [facility] [address] [place], [place] [id number] Tag Machine Operator: Mike Forde MD CO2 [Moles/Vol] 22 mmol/L Normal 20-31 [facility] Comment on above: Performed By: #### C DP, BMP #### [facility] [address] [place], [place] [id number] Tag Machine Operator: Mike Forde MD Creatinine [Mass/Vol] 0.7 mg/dL Normal 0.5-0.9 [facility] Comment on above: Performed By: #### C DP, BMP #### [facility] [address] [place] [address] Tag Machine Operator: Mike Forde MD GFR/1.73 sq M.predicted among non-blacks MDRD (S/P/Bld) [Vol rate/Area] mL/min/{1.73_m2} Normal >60 [facility] Comment on above: Result Comment: These [...] [facility] [address] [place] [address] Tag Machine Operator: Mike Forde MD Glucose [Mass/Vol] 113 mg/dL High 70-99 [facility] Comment on above: Performed By: #### C DP, BMP #### [facility] [address] [place], [place] [id number] Tag Machine Operator: Mike Forde MD Potassium [Moles/Vol] 3.4 mmol/L Low 3.7-5.3 [facility] Comment on above: Performed By: #### C DP, BMP #### [facility] [address] [place] [address] Tag Machine Operator: Mike Forde MD Sodium [Moles/Vol] 135 mmol/L Normal 135-144 [facility] Comment on above: Performed By: #### C DP, BMP #### [facility] [address] [place] [id number] Tag Machine Operator: Mike Forde MD Urea nitrogen [Mass/Vol] 7 mg/dL Normal 6-20 [facility] Comment on above: Performed By: #### C DP, BMP #### [facility] [address] [place] [address] Tag Machine Operator: Mike Forde MD CBC with Diffon 04-16-2023 Abs. Basophil 0.03 k/uL Normal 0.00-0.20 [facility] Comment on above: Performed By: #### C DP, BMP #### [facility] [address] [place] [phone] Tag Machine Operator: Mike Forde MD Abs.Imm.Granulocyte 0.02 k/uL Normal 0.00-0.30 [facility] Comment on above: Performed By: #### C DP, BMP #### [facility] [address] [place] [address] Tag Machine Operator: Mike Forde MD Abs.Neutrophil (Seg) 7.51 k/uL High 2.5-7.0 [facility] Comment on above: Performed By: #### C DP, BMP #### [facility] [address] [place] [address] Tag Machine Operator: Mike Forde MD Basophils/100 WBC (Bld) 0 % Normal 0-2 [facility] Comment on above: Performed By: #### C DP, BMP #### [facility] [address] [place] [id number] Tag Machine Operator: Mike Forde MD Eosinophils (Bld) [#/Vol] 0.03 10*3/uL Normal 0.00-0.40 [facility] Comment on above: Performed By: #### C DP, BMP #### [facility] [address] [place] [id number] Tag Machine Operator: Mike Forde MD Eosinophils/100 WBC (Bld) 0 % Normal 0-5 [facility] Comment on above: Performed By: #### C DP, BMP #### [facility] [address] [place] [address] Tag Machine Operator: Mike Forde MD Erythrocyte distribution width (RBC) [Ratio] 11.8 % Low 12.1-15.2 [facility] Comment on above: Performed By: #### C DP, BMP #### [facility] [address] [place] [address] Tag Machine Operator: Mike Forde MD Hematocrit (Bld) [Volume fraction] 43.4 % Normal 36.0-46.0 [facility] Comment on above: Performed By: #### C DP, BMP #### [facility] [address] [place] [id number] Tag Machine Operator: Mike Forde MD Hemoglobin (Bld) [Mass/Vol] 15.5 g/dL Normal 12.0-16.0 [facility] Comment on above: Performed By: #### C DP, BMP #### [facility] [address] [place] [id number] Tag Machine Operator: Mike Forde MD Immature granulocytes/100 WBC (Bld) 0 % Normal 0-5 [facility] Comment on above: Performed By: #### C DP, BMP #### [facility] [address] [place] [id number] Tag Machine Operator: Mike Forde MD Lymphocytes (Bld) [#/Vol] 2.33 10*3/uL Normal 1.00-4.80 [facility] Comment on above: Performed By: #### C DP, BMP #### [facility] [address] [place], [place] [id number] Tag Machine Operator: Mike Forde MD Lymphocytes/100 WBC (Bld) 22 % Normal 15-40 [facility] Comment on above: Performed By: #### C DP, BMP #### [facility] [address] [place] [address] Tag Machine Operator: Mike Forde MD MCH (RBC) [Entitic mass] 28.9 pg Normal 26.0-34.0 [facility] Comment on above: Performed By: #### C DP, BMP #### [facility] [address] [place] [address] Tag Machine Operator: Mike Forde MD MCHC (RBC) [Mass/Vol] 35.7 g/dL Normal 31.0-37.0 [facility] Comment on above: Performed By: #### C DP, BMP #### [facility] [address] [place] [id number] Tag Machine Operator: Mike Forde MD MCV (RBC) [Entitic vol] 80.8 fL Normal 80.0-100.0 [facility] Comment on above: Performed By: #### C DP, BMP #### [facility] [address] [place] [address] Tag Machine Operator: Mike Forde MD Monocytes (Bld) [#/Vol] 0.88 10*3/uL Normal 0.00-1.00 [facility] Comment on above: Performed By: #### C DP, BMP #### [facility] [address] [place] [address] Tag Machine Operator: Mike Forde MD Monocytes/100 WBC (Bld) 8 % Normal 4-8 [facility] Comment on above: Performed By: #### C DP, BMP #### [facility] [address] [place], [place] [phone] Tag Machine Operator: Mike Forde MD Neutrophil (Seg) 70 % Normal 47-75 [facility] Comment on above: Performed By: #### C DP, BMP #### [facility] [address] [place] [address] ([phone] Tag Machine Operator: Mike Forde MD Platelet mean volume (Bld) [Entitic vol] 10.5 fL Normal 6.0-12.0 [facility] Comment on above: Performed By: #### C DP, BMP #### [facility] [address] [place], [place] [phone] Tag Machine Operator: Mike Forde MD Platelets (Bld) [#/Vol] 279 10*3/uL Normal 140-450 [facility] Comment on above: Performed By: #### C DP, BMP #### [facility] [address] [place] [address] ([phone] Tag Machine Operator: Mike Forde MD RBC (Bld) [#/Vol] 5.37 10*6/uL High 4.00-5.20 [facility] Comment on above: Performed By: #### C DP, BMP #### [facility] [address] [place] [address] Tag Machine Operator: Mike Forde MD WBC (Bld) [#/Vol] 10.8 10*3/uL Normal 3.5-11.0 [facility] Comment on above: Performed By: #### C DP, BMP #### [facility] [address] [place] [address] [phone] Tag Machine Operator: Mike Forde MD CBC with Auto Differentialon 12-13-2021 Absolute Eos # 0.00 [facility] Absolute Lymph # 1.90 [facility] Absolute Zavala # 0.50 [facility] Basophils (Bld) [#/Vol] 0.00 10*3/uL [facility] Basophils/100 WBC (Bld) 0 % 0 - 2 % [facility] Differential Type YES [facility] Eosinophils/100 WBC (Bld) 0 % 0 - 5 % [facility] Hematocrit (Bld) [Volume fraction] 43.5 % 36 - 46 % [facility] Hemoglobin (Bld) [Mass/Vol] 14.6 g/dL 12.0 - 16.0 g/dL [facility] Lymphocytes/100 WBC (Bld) 21 % 15 - 40 % [facility] MCH (RBC) [Entitic mass] 28.9 pg 26 - 34 pg [facility] MCHC (RBC) [Mass/Vol] 33.5 g/dL 31 - 37 g/dL [facility] MCV (RBC) [Entitic vol] 86.2 fL 80 - 100 fL [facility] Monocytes/100 WBC (Bld) 5 % 4 - 8 % [facility] Platelet distribution width (Bld) [Ratio] 12.3 % 12.1 - 15.2 % [facility] Platelets (Bld) [#/Vol] 265 10*3/uL [facility] RBC (Bld) [#/Vol] 5.05 10*6/uL 4.0 - 5.2 m/uL [facility] Segmented neutrophils/100 WBC (Bld) 74 % 47 - 75 % [facility] Segs Absolute 6.60 [facility] WBC (Bld) [#/Vol] 9.1 10*3/uL [facility] Comprehensive Metabolic Pane davi 12-13-2021 Albumin [Mass/Vol] 4.3 g/dL 3.5 - 5.2 g/dL [facility] ALP (Bld) [Catalytic activity/Vol] 77 U/L 35 - 104 U/L [facility] ALT [Catalytic activity/Vol] 23 U/L 5 - 33 U/L [facility] Anion gap [Moles/Vol] 11 mmol/L 9 - 17 mmol/L [facility] AST [Catalytic activity/Vol] 15 U/L <32 [facility] Bilirubin [Mass/Vol] 0.51 mg/dL 0.30 - 1.20 mg/dL [facility] Calcium [Mass/Vol] 9.6 mg/dL 8.6 - 10.4 mg/dL [facility] Chloride [Moles/Vol] 102 mmol/L 98 - 107 mmol/L [facility] CO2 [Moles/Vol] 25 mmol/L 20 - 31 mmol/L [facility] Creatinine [Mass/Vol] 0.77 mg/dL 0.50 - 0.90 mg/dL [facility] Free PSA/Total PSA [Mass fraction] 7.4 g/dL 6.4 - 8.3 g/dL [facility] GFR >60 >60 mL/min [facility] GFR Non- >60 >60 mL/min [facility] GFR/1.73 sq M.predicted MDRD (S/P/Bld) [Vol rate/Area] [facility] Comment on above: Average GFR for 20-2 9 years old: 116 mL/min/1.73sq m Chronic Kidney Disease: <60 mL/min/1.73sq m Kidney failure: <15 mL/min/1.73sq m eGFR calculated using average adult body mass. Additional eGFR calculator available at: http://www.[employer].Nursing Home Quality/multiple_crcl_2011.htm Glucose [Mass/Vol] 93 mg/dL 70 - 99 mg/dL [facility] Potassium [Moles/Vol] 4.2 mmol/L 3.7 - 5.3 mmol /L [facility] Sodium [Moles/Vol] 138 mmol/L 135 - 144 mmol/L [facility] Urea nitrogen (BldV) [Mass/Vol] 9 mg/dL 6 - 20 mg/dL [facility] Urea nitrogen/Creatinine (Bld) [Mass ratio] 12 [facility] Encounters Encounter Date Encounter Type [...] End: 05-31-2023 Emergency department patient visit TERRENCE OWLF [facility] Start: 04-16-2023 End: 04-17-2023 [facility] Start: 12-13-2021 End: 12-13-2021 Subsequent hospital visit by physician Arpit Leblanc CNP Work Phone: [facility] Comment on above: Blood in stool, zeina k; Gastroesophageal reflux disease without esophagitis; Diarrhea, unspecified type; Abdominal cramping Start: 03-01-2019 End: 03-01-2019 Subsequent hospital visit by physician Aprit Parekh [facility] Comment on above: Need for varicella v accine Procedures Date Procedure Procedure Detail Performing Clinician Start: 12-13-2021 Comprehensive metabo lic panel Arpit Leblanc BUSINESS TECHNOLOGY ARCHITECT Work Phone: Plan of Treatment Date Care Activity Detail Author Start: 11-26-2029 DTaP/Tdap/Td vaccine (3 - Td or Tdap) DTaP/Tdap/Td vaccine (3 - Td or Tdap) [facility] Start: 12-13-2022 Depression Screen Depression Screen [facility] Start: 03-14-2022 COVID-19 Vaccine (3 - Booster for Pfizer series) COVID-19 Vaccine (3 - Booster for Pfizer series) [facility] Start: 03-10-2022 Influenza vaccination Flu vaccine (S angelo Ended) [facility] Start: 01-11-2022 End: 01-11-2022 Patient encounter procedure 01/11/2022 Office Visit Family Medicine Arpit Parekh, MOTOR VEHICLE ASSEMBLY SUPERVISOR - BUSINESS TECHNOLOGY ARCHITECT [address] [place] [address] [facility] Start: 2019 Screening for malign ant neoplasm of cervix Pap smear [facility] Start: 03-10-2019 Influenza vaccination Flu vaccine (# 1) [place], [place] Start: 2017 DTaP/Tdap/Td vaccine (1 - Tdap) DTaP/Tdap/Td vaccine (1 - Tdap) [place], [place] Start: 2016 Hepatitis C screening Hepatitis C sc reen [facility] Start: 2014 Chlamydia screen Chlamydia screen [place], [place] Start: 2014 Screening for Chlamy nathalie trachomatis Chlamydia screen [facility] Start: 2013 HIV screen HIV screen [place], [place] Start: 2013 HIV screening HIV screen [facility] Start: 2013 HPV vaccine (1 - Fem dana 3-dose series) HPV vaccine (1 - Female 3-dose series) [place], [place] Start: 2011 Varicella Vaccine (1 of 2 - 13+ 2-dose series) Varicella Vaccine (1 of 2 - 13+ 2-dose series) [place], [place] Start: 2009 HPV vaccine (1 - 2-d ose series) HPV vaccine (1 - 2-dose series) [facility] Start: 1999 Varicella vaccine (1 of 2 - 2-dose childhood series) Varicella vaccine (1 of 2 - 2-dose childhood series) [facility] End: 12-13-2021 CBC W Auto Differential panel - Blood CBC with Auto Differential Lab Routine Diarrhea, unspecified type Blood in stool, gustavo 1 Occurrences starting 12/13/2021 until 12/13/2021 [employer] Phone: Comment on above: 1 Occurrences starti ng 12/13/2021 until 12/13/2021 End: 12-13-2021 Celiac Disease Panel Celiac Disease Panel Lab Routine Diarrhea, unspecified type Abdominal cramping 1 Occurrences starting 12/13/2021 until 12/13/2021 [employer] Phone: Comment on above: 1 Occurrences starti ng 12/13/2021 until 12/13/2021 End: 12-13-2021 Celiac Plus [employer] Phone: Comment on above: Once for 1 Occurrenc es starting 12/13/2021 until 12/13/2021 End: 12-13-2021 Comprehensive metabolic 2000 panel - Serum or Plasma Comprehensive Metabolic Panel Lab Routine Blood in stool, gustavo Gastroesophageal reflux disease without esophagitis 1 Occurrences starting 12/13/2021 until 12/13/2021 [employer] Phone: Comment on above: 1 Occurrences starti ng 12/13/2021 until 12/13/2021 End: 03-01-2019 Varicella Zoster Antibody, IgG Varicella Zoster Antibody, IgG Lab Routine Need for varicella vaccine 1 Occurrences starting 03/01/2019 until 03/01/2019 [place], [place] Comment on above: 1 Occurrences starti ng 03/01/2019 until 03/01/2019 Varicella Zoster Antibody, IgG Varicella Zoster Antibody, IgG Lab Routine Need for varicella vaccine 03/01/2019 11:50 AM EDT [place], [place] Immunizations Immunization Date Immunization Notes Care Provider Fa cili 09-18-2021 COVID-19, Pfizer Pur ple top, DILUTE for use, 12+ yrs, 30mcg/0.3mL dose Arpit Parekh MOTOR VEHICLE ASSEMBLY SUPERVISOR - BUSINESS TECHNOLOGY ARCHITECT Work Phone: [facility] [employer] Phone: 11-27-2019 Hepatitis B vaccine (recombinant), CpG adjuvanted Arpit Parekh MOTOR VEHICLE ASSEMBLY SUPERVISOR - BUSINESS TECHNOLOGY ARCHITECT Work Phone: [facility] [employer] Work Phone: 11-27-2019 tetanus toxoid, redu gordon diphtheria toxoid, and acellular pertussis vaccine, adsorbed [facility]pit [facility]kh [facility] Work Phone: [facility] [employer] Work Phone: 03-27-2019 hepatitis B vaccine, adult dosage Arpit Parekh [facility] Work Phone: [facility] [employer] Work Phone: 03-27-2019 measles, mumps and rubella virus vaccine Arpit Parekh [facility] [employer] [facility] Work Phone: [facility] [employer] Work Phone: 03-03-2019 measles, mumps and rubella virus vaccine Arpit Parekh [facility] Work Phone: [facility] [employer] Work Phone: 02-25-2019 hepatitis B vaccine, adult dosage Arpit Parekh [facility] Payers Date Payer Category Payer Unknown [id number] 2022 Private Health Insurance [id number] 2018 Unknown BCBS [place] - [place] P PO xxxxxxxxxxxx 2018-Present [address] [place] [address] xxxxxxxxxxxx [id number] 2018 Unknown [id number] 1998 Unknown [id number] [id number] .174 1998 Unknown [id number] [id number] .174 1998 Unknown [id number] [id number] .1259 1998 Unknown [id number] 2.16.840.1.225452.3.579.2 .9 1998 Unknown [id number] 2.16.840.1.230424.3.579.2 .9 1998 Unknown [id number] 2.16.840.1.656745.3.579.2 .9 1998 Unknown [id number] 2.16.840.1.703154.3.579.2 .1258 1998 Unknown [id number] 2.16.840.1.040418.3.579.2 .1258 1998 Unknown [id number] 2.16.840.1.954219.3.579.2 .9 1998 Unknown [id number] 2.16.840.1.122005.3.579.2 .1258 1998 Unknown [id number] 2.16.840.1.314483.3.579.2 .9 Social History Date Type Detail Facility Start: 04-25-2016 End: 11-26-2018 Tobacco smoking status NHIS Never smoker [place], [place] Start: 11-26-2018 [facility] [place] [place] Start: 2000 Sex Assigned At Not on file M [place], [place] Start: 04-25-2016 Tobacco use and exposure Smokeless tobacco non-user [facility] [employer] Phone: Start: 12-13-2021 Alcohol intake Current non-dr loan auditor of alcohol (finding) [facility] [employer] Phone: Start: 12-13-2021 History SDOH Financial 5 [employer] Phone: Start: 12-13-2021 History 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 1 [employer] Phone: Evaluation note Note Date & Type Note Facility Evaluation note Diagnosis Blood in stool, gustavo Blood in stool Gastroesophageal reflux disease without esophagitis Esophageal reflux Diarrhea, unspecified type Abdominal cramping Abdominal pain, unspecified site documented in this encounter 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 [facility] Work Phone: Assessments Diagnosis Need for varicella vaccine Need for prophylactic vaccination and inoculation against varicella Advance Directives No Advanced Directives Records FoundDocuments on File Type Date Recorded Patient Bumboater Expl anation Advance Directives and Living Will Power of Yard Laborer Documents on File Type Date Recorded Patient Bumboater Expl anation ACP-Advance Directive ACP-Power of Yard Laborer Summary Purpose Family History No Family History Records FoundNo Family History Records Found Additional Source Comments Care Teams (unrecognized sec tion and content) Shark Biologist Relationship Specialty Start Date End Date Arpit Parekh, MOTOR VEHICLE ASSEMBLY SUPERVISOR - BUSINESS TECHNOLOGY ARCHITECT [address] [place] [id number] PCP - General Nurse Practitioner 11/23/16 INFORMATION SOURCE (unrecogn ized section and content) DATE CREATED AUTHOR 06/02/2023 Rachel Mcnair spital DATE CREATED AUTHOR AUTHOR'S ORGANIZ ATION 11/06/2023 [facility] FOR RECORDS PERTAINING TO PATIENTS WHO [...] BE BASED ON THE PRIMARY CLINICAL RECORDS. [employer] provides no warranty or guarantee of the accuracy or completeness of information in this document.
[2023-11-11 09:30] VITALS: BP 120/83; PULSE 96
== END 2023-11-11 10:00 | disposition home or self-care (01) ==
LOC: US 09:03 → FBC 09:05
PROVIDERS: Visit Provider Obstetrics & Gynecology
DX: O99.280 Endocrine, nutritional and metabolic diseases complicating pregnancy, unspecified trimester (principal); E05.90 Thyrotoxicosis, unspecified without thyrotoxic crisis or storm; Z3A.38 38 weeks gestation of pregnancy
CPT/HCPCS: 76818

== ENCOUNTER 2023-11-14 16:39 | Outpatient (OUT) | payer BC, OTHER, SELFPAY ==
[2023-11-14 17:56] LABS: Thyroid Stimulating Hormone 2.125 uIU/mL (0.358-3.740)
== END 2023-11-14 16:40 | disposition home or self-care (01) ==
LOC: LAB 16:39
PROVIDERS: Visit Provider Obstetrics & Gynecology
DX: E03.8 Other specified hypothyroidism (principal)
CPT/HCPCS: 36415; 84443

== ENCOUNTER 2023-11-15 07:28 | Outpatient (OUT) | payer BC, OTHER, SELFPAY ==
--- OUTSIDE RECORDS SUMMARY | 2023-11-15 07:30 | XMS_ITS | CCD ---
Author Organization [facility] Care Team Providers Care Inspector Boiler Name Role Phone Arpit Parekh Primary Care Provider TERRENCE WOLF Attending Unavailable ARPIT PAREKH Primary Care Unavailable ARPIT PAREKH Primary Care Unavailable WILLIAM WHITAKER Attending Unavailable ASTON, ALICIA Attending Unavailable RITA, NAHED Attending Unavailable ASTON, ALICIA Attending Unavailable RITA, [...] 05-30-2023 Abs. Basophil 0.01 k/uL Normal 0.00-0.20 [facility] Comment on above: Performed By: #### C DP, CP #### [facility] [address] [place] [address] Side Piece Coverer: Mike Forde MD Abs.Imm.Granulocyte 0.01 k/uL Normal 0.00-0.30 [facility] Comment on above: Performed By: #### C DP, CP #### [facility] [address] [place] [phone] Side Piece Coverer: Mike Forde MD Abs.Neutrophil (Seg) 6.24 k/uL Normal 2.5-7.[address] [facility] Comment on above: Performed By: #### C DP, CP #### [facility] [address] [place] [address] Side Piece Coverer: Mike Forde MD Basophils/100 WBC (Bld) 0 % Normal 0-2 [facility] Comment on above: Performed By: #### C DP, CP #### [facility] [address] [phone] Side Piece Coverer: Mike Forde MD Eosinophils (Bld) [#/Vol] 0.00 10*3/uL Normal 0.00-0.40 [facility] Comment on above: Performed By: #### C DP, CP #### [facility] [address] [place] [address] Side Piece Coverer: Mike Forde MD Eosinophils/100 WBC (Bld) 0 % Normal 0-5 [facility] Comment on above: Performed By: #### C DP, CP #### [facility] [address] [place], [place] [phone] Side Piece Coverer: Mike Forde MD Erythrocyte distribution width (RBC) [Ratio] 11.9 % Low 12.1-15.2 [facility] Comment on above: Performed By: #### C DP, CP #### [facility] [address] [place], [place] [phone] Side Piece Coverer: Mike Forde MD Hematocrit (Bld) [Volume fraction] 41.1 % Normal 36.0-46.0 [facility] Comment on above: Performed By: #### C DP, CP #### [facility] [address] [place], [place] [phone] Side Piece Coverer: Mike Forde MD Hemoglobin (Bld) [Mass/Vol] 14.5 g/dL Normal 12.0-16.0 [facility] Comment on above: Performed By: #### C DP, CP #### [facility] [address] [place], [place] [id number] Side Piece Coverer: Mike Forde MD Immature granulocytes/100 WBC (Bld) 0 % Normal 0-5 [facility] Comment on above: Performed By: #### C DP, CP #### [facility] [address] [place] [address] Side Piece Coverer: Mike Forde MD Lymphocytes (Bld) [#/Vol] 1.74 10*3/uL Normal 1.00-4.80 [facility] Comment on above: Performed By: #### C DP, CP #### [facility] [address] [place], [place] [id number] Side Piece Coverer: Mike Forde MD Lymphocytes/100 WBC (Bld) 21 % Normal 15-40 [facility] Comment on above: Performed By: #### C DP, CP #### [facility] [address] [place] [address] Side Piece Coverer: Mike Forde MD MCH (RBC) [Entitic mass] 29.2 pg Normal 26.0-34.0 [facility] Comment on above: Performed By: #### C DP, CP #### [facility] [address] [place] [phone] Side Piece Coverer: Mike Forde MD MCHC (RBC) [Mass/Vol] 35.3 g/dL Normal 31.0-37.0 [facility] Comment on above: Performed By: #### C DP, CP #### [facility] [address] [place] [phone] Side Piece Coverer: Mike Forde MD MCV (RBC) [Entitic vol] 82.9 fL Normal 80.0-100.0 [facility] Comment on above: Performed By: #### C DP, CP #### [facility] [address] [place] [address] Side Piece Coverer: Mike Forde MD Monocytes (Bld) [#/Vol] 0.50 10*3/uL Normal 0.00-1.00 [facility] Comment on above: Performed By: #### C DP, CP #### [facility] [address] [phone] Side Piece Coverer: Mike Forde MD Monocytes/100 WBC (Bld) 6 % Normal 4-8 [facility] Comment on above: Performed By: #### C DP, CP #### [facility] [address] [place] [address] Side Piece Coverer: Mike Forde MD Neutrophil (Seg) 73 % Normal 47-75 [facility] Comment on above: Performed By: #### C DP, CP #### [facility] [address] [place], [place] [phone] Side Piece Coverer: Mike Forde MD Platelet mean volume (Bld) [Entitic vol] 10.4 fL Normal 6.0-12.0 [facility] Comment on above: Performed By: #### C DP, CP #### [facility] [address] [place] [address] Side Piece Coverer: Mike Forde MD Platelets (Bld) [#/Vol] 227 10*3/uL Normal 140-450 [facility] Comment on above: Performed By: #### C DP, CP #### [facility] [address] [phone] Side Piece Coverer: Mike Forde MD RBC (Bld) [#/Vol] 4.96 10*6/uL Normal 4.00-5.20 [facility] Comment on above: Performed By: #### C DP, CP #### [facility] [address] [place], [place] [phone] Side Piece Coverer: Mike Forde MD WBC (Bld) [#/Vol] 8.5 10*3/uL Normal 3.5-11.0 [facility] Comment on above: Performed By: #### C DP, CP #### [facility] [address] [place] [address] Side Piece Coverer: Mike Forde MD Comp Metabolic Profon 2022 Albumin [Mass/Vol] 4.2 g/dL Normal 3.5-5.2 [facility] Comment on above: Performed By: #### C DP, CP #### [facility] [address] [place] [address] Side Piece Coverer: Mike Forde MD Alkaline Phos 48 U/L Normal 35-104 [facility] Comment on above: Performed By: #### C DP, CP #### [facility] [address] [place], [place] [phone] Side Piece Coverer: Mike Forde MD ALT [Catalytic activity/Vol] 12 U/L Normal 5-33 [facility] Comment on above: Performed By: #### C DP, CP #### [facility] [address] [place], [place] [phone] Side Piece Coverer: Mike Forde MD Anion gap [Moles/Vol] 15 mmol/L Normal 9-17 [facility] Comment on above: Performed By: #### C DP, CP #### [facility] [address] [place], [place] [phone] Side Piece Coverer: Mike Forde MD AST [Catalytic activity/Vol] 11 U/L Normal <32 [facility] Comment on above: Performed By: #### C DP, CP #### [facility] [address] [place], [place] [phone] Side Piece Coverer: Mike Forde MD Bilirubin [Mass/Vol] mg/dL Low 0.3-1.[address] [facility] Comment on above: Performed By: #### C DP, CP #### [facility] [address] [place], [place] [phone] Side Piece Coverer: Mike Forde MD BUN/CRE Ratio 14 Normal 9-20 [facility] Comment on above: Performed By: #### C DP, CP #### [facility] [address] [place], [place] [phone] Side Piece Coverer: Mike Forde MD Calcium [Mass/Vol] 9.7 mg/dL Normal 8.6-10.4 [facility] Comment on above: Performed By: #### C DP, CP #### [facility] [address] [place], [place] [phone] Side Piece Coverer: Mike Forde MD Chloride [Moles/Vol] 101 mmol/L Normal 98-[address] [facility] Comment on above: Performed By: #### C DP, CP #### [facility] [address] [place], [place] [phone] Side Piece Coverer: Mike Forde MD CO2 [Moles/Vol] 22 mmol/L Normal 20-31 [facility] Comment on above: Performed By: #### C DP, CP #### [facility] [address] [place] [address] Side Piece Coverer: Mike Forde MD Creatinine [Mass/Vol] 0.5 mg/dL Normal 0.5-0.9 [facility] Comment on above: Performed By: #### C DP, CP #### [facility] [address] [place] [address] Side Piece Coverer: Mike Forde MD GFR/1.73 sq M.predicted among non-blacks MDRD (S/P/Bld) [Vol rate/Area] mL/min/{1.73_m2} Normal >60 [facility] Comment on above: Result Comment: These results [...] Performed By: #### C DP, CP #### [facility] [address] [place] [address] Side Piece Coverer: Mike Forde MD Glucose [Mass/Vol] 90 mg/dL Normal 70-99 [facility] Comment on above: Performed By: #### C DP, CP #### [facility] [address] [place], [place] [phone] Side Piece Coverer: Mike Forde MD Potassium [Moles/Vol] 3.5 mmol/L Low 3.7-5.3 [facility] Comment on above: Performed By: #### C DP, CP #### [facility] [address] [place] [address] Side Piece Coverer: Mike Forde MD Protein [Mass/Vol] 7.5 g/dL Normal 6.4-8.3 [facility] Comment on above: Performed By: #### C DP, CP #### [facility] [address] [place], [place] [phone] Side Piece Coverer: Mike Forde MD Sodium [Moles/Vol] 138 mmol/L Normal 135-144 [facility] Comment on above: Performed By: #### C DP, CP #### [facility] [address] [place] [address] Side Piece Coverer: Mike Forde MD Urea nitrogen [Mass/Vol] 7 mg/dL Normal 6-20 [facility] Comment on above: Performed By: #### C DP, CP #### [facility] [address] [place] [address] Side Piece Coverer: Mike Forde MD Basic Metabolic Profon 04-16 Anion gap [Moles/Vol] 15 mmol/L Normal - [facility] Comment on above: Performed By: #### C DP, BMP #### [facility] [address] [place] [address] Side Piece Coverer: Mike Forde MD BUN/CRE Ratio 10 Normal -20 [facility] Comment on above: Performed By: #### C DP, BMP #### [facility] [address] [place] [address] Side Piece Coverer: Mike Forde MD Calcium [Mass/Vol] 10.2 mg/dL Normal 8.6-10.4 [facility] Comment on above: Performed By: #### C DP, BMP #### [facility] [address] [place], [place] [phone] Side Piece Coverer: Mike Forde MD Chloride [Moles/Vol] 98 mmol/L Normal 98-[address] [facility] Comment on above: Performed By: #### C DP, BMP #### [facility] [address] [place] [address] Side Piece Coverer: Mike Forde MD CO2 [Moles/Vol] 22 mmol/L Normal 20-31 [facility] Comment on above: Performed By: #### C DP, BMP #### [facility] [address] [place] [address] Side Piece Coverer: Mike Forde MD Creatinine [Mass/Vol] 0.7 mg/dL Normal 0.5-0.9 [facility] Comment on above: Performed By: #### C DP, BMP #### [facility] [address] [place], [place] [phone] Side Piece Coverer: Mike Forde MD GFR/1.73 sq M.predicted among non-blacks MDRD (S/P/Bld) [Vol rate/Area] mL/min/{1.73_m2} Normal >60 [facility] Comment on above: Result Comment: These results [...] Performed By: #### C DP, BMP #### [facility] [address] [place], [place] [phone] Side Piece Coverer: Mike Forde MD Glucose [Mass/Vol] 113 mg/dL High 70-99 [facility] Comment on above: Performed By: #### C DP, BMP #### [facility] [address] [place] [address] Side Piece Coverer: Mike Forde MD Potassium [Moles/Vol] 3.4 mmol/L Low 3.7-5.3 [facility] Comment on above: Performed By: #### C DP, BMP #### [facility] [address] [place] [phone] Side Piece Coverer: Mike Forde MD Sodium [Moles/Vol] 135 mmol/L Normal 135-144 [facility] Comment on above: Performed By: #### C DP, BMP #### [facility] [address] [place] [phone] Side Piece Coverer: Mike Forde MD Urea nitrogen [Mass/Vol] 7 mg/dL Normal 6-20 [facility] Comment on above: Performed By: #### C DP, BMP #### [facility] [address] [place] [address] Side Piece Coverer: Mike Forde MD CBC with Diffon 04-16-2023 Abs. Basophil 0.03 k/uL Normal 0.00-0.20 [facility] Comment on above: Performed By: #### C DP, BMP #### [facility] [address] [place] [phone] Side Piece Coverer: Mike Forde MD Abs.Imm.Granulocyte 0.02 k/uL Normal 0.00-0.30 [facility] Comment on above: Performed By: #### C DP, BMP #### [facility] [address] [place] [address] Side Piece Coverer: Mike Forde MD Abs.Neutrophil (Seg) 7.51 k/uL High 2.5-7.[address] [facility] Comment on above: Performed By: #### C DP, BMP #### [facility] [address] [place] [phone] Side Piece Coverer: Mike Forde MD Basophils/100 WBC (Bld) 0 % Normal 0-2 [facility] Comment on above: Performed By: #### C DP, BMP #### [facility] [address] [place], [place] [phone] Side Piece Coverer: Mike Forde MD Eosinophils (Bld) [#/Vol] 0.03 10*3/uL Normal 0.00-0.40 [facility] Comment on above: Performed By: #### C DP, BMP #### [facility] [address] [place], [place] [phone] Side Piece Coverer: Mike Forde MD Eosinophils/100 WBC (Bld) 0 % Normal 0-5 [facility] Comment on above: Performed By: #### C DP, BMP #### [facility] [address] [place] [address] Side Piece Coverer: Mike Forde MD Erythrocyte distribution width (RBC) [Ratio] 11.8 % Low 12.1-15.2 [facility] Comment on above: Performed By: #### C DP, BMP #### [facility] [address] [place], [place] [phone] Side Piece Coverer: Mike Forde MD Hematocrit (Bld) [Volume fraction] 43.4 % Normal 36.0-46.0 [facility] Comment on above: Performed By: #### C DP, BMP #### [facility] [address] [place], [place] [phone] Side Piece Coverer: Mike Forde MD Hemoglobin (Bld) [Mass/Vol] 15.5 g/dL Normal 12.0-16.0 [facility] Comment on above: Performed By: #### C DP, BMP #### [facility] [address] [place], [place] [phone] Side Piece Coverer: Mike Forde MD Immature granulocytes/100 WBC (Bld) 0 % Normal 0-5 [facility] Comment on above: Performed By: #### C DP, BMP #### [facility] [address] [place], [place] [phone] Side Piece Coverer: Mike Forde MD Lymphocytes (Bld) [#/Vol] 2.33 10*3/uL Normal 1.00-4.80 [facility] Comment on above: Performed By: #### C DP, BMP #### [facility] [address] [place] [address] Side Piece Coverer: Mike Forde MD Lymphocytes/100 WBC (Bld) 22 % Normal 15-40 [facility] Comment on above: Performed By: #### C DP, BMP #### [facility] [address] [place] [phone] Side Piece Coverer: Mike Forde MD MCH (RBC) [Entitic mass] 28.9 pg Normal 26.0-34.0 [facility] Comment on above: Performed By: #### C DP, BMP #### [facility] [address] [place] [phone] Side Piece Coverer: Mike Forde MD MCHC (RBC) [Mass/Vol] 35.7 g/dL Normal 31.0-37.0 [facility] Comment on above: Performed By: #### C DP, BMP #### [facility] [address] [place] [address] Side Piece Coverer: Mike Forde MD MCV (RBC) [Entitic vol] 80.8 fL Normal 80.0-100.0 [facility] Comment on above: Performed By: #### C DP, BMP #### [facility] [address] [place] [address] Side Piece Coverer: Mike Forde MD Monocytes (Bld) [#/Vol] 0.88 10*3/uL Normal 0.00-1.00 [facility] Comment on above: Performed By: #### C DP, BMP #### [facility] [address] [place] [address] Side Piece Coverer: Mike Forde MD Monocytes/100 WBC (Bld) 8 % Normal 4-8 [facility] Comment on above: Performed By: #### C DP, BMP #### [facility] [address] [place], [place] [phone] (267) Side Piece Coverer: Mike Forde MD Neutrophil (Seg) 70 % Normal 47-75 [facility] Comment on above: Performed By: #### C DP, BMP #### [facility] [address] [place], [place] [phone] (238) Side Piece Coverer: Mike Forde MD Platelet mean volume (Bld) [Entitic vol] 10.5 fL Normal 6.0-12.0 [facility] Comment on above: Performed By: #### C DP, BMP #### [facility] [address] [place], [place] [phone] ([phone] Side Piece Coverer: Mike Forde MD Platelets (Bld) [#/Vol] 279 10*3/uL Normal 140-450 [facility] Comment on above: Performed By: #### C DP, BMP #### [facility] [address] [place], [place] [phone] (734) Side Piece Coverer: Mike Forde MD RBC (Bld) [#/Vol] 5.37 10*6/uL High 4.00-5.20 [facility] Comment on above: Performed By: #### C DP, BMP #### [facility] [address] [place], [place] [phone] (380) Side Piece Coverer: Mike Forde MD WBC (Bld) [#/Vol] 10.8 10*3/uL Normal 3.5-11.0 [facility] Comment on above: Performed By: #### C DP, BMP #### [facility] [address] [place], [place] [phone] ([phone] Side Piece Coverer: Mike Forde MD CBC with Auto Differentialon 12-13-2021 Absolute Eos # 0.00 [facility] Absolute Lymph # 1.90 [facility] Absolute [place] # 0.50 [facility] Basophils (Bld) [#/Vol] 0.00 10*3/uL [facility] Basophils/100 WBC (Bld) 0 % 0 - 2 % [facility] Differential Type YES [facility] Eosinophils/100 WBC (Bld) 0 % 0 - 5 % [facility] Hematocrit (Bld) [Volume fraction] 43.5 % 36 - 46 % [facility] Hemoglobin (Bld) [Mass/Vol] 14.6 g/dL 12.0 - 16.0 g/dL [facility] Lymphocytes/100 WBC (Bld) 21 % 15 - 40 % [facility] MCH (RBC) [Entitic mass] 28.9 pg 26 - 34 pg [facility] MCHC (RBC) [Mass/Vol] 33.5 g/dL 31 - 37 g/dL [facility] MCV (RBC) [Entitic vol] 86.2 fL 80 - 100 fL [facility] Monocytes/100 WBC (Bld) 5 % 4 - 8 % [facility] Platelet distribution width (Bld) [Ratio] 12.3 % 12.1 - 15.2 % [facility] Platelets (Bld) [#/Vol] 265 10*3/uL [facility] RBC (Bld) [#/Vol] 5.05 10*6/uL 4.0 - 5.2 m/uL [facility] Segmented neutrophils/100 WBC (Bld) 74 % 47 - 75 % [facility] Segs Absolute 6.60 [facility] WBC (Bld) [#/Vol] 9.1 10*3/uL [facility] Comprehensive Metabolic Pane davi 12-13-2021 Albumin [Mass/Vol] 4.3 g/dL 3.5 - 5.2 g/dL [facility] ALP (Bld) [Catalytic activity/Vol] 77 U/L 35 - 104 U/L [facility] ALT [Catalytic activity/Vol] 23 U/L 5 - 33 U/L [facility] Anion gap [Moles/Vol] 11 mmol/L 9 - 17 mmol/L [facility] AST [Catalytic activity/Vol] 15 U/L <32 [facility] Bilirubin [Mass/Vol] 0.51 mg/dL 0.30 - 1.20 mg/dL [facility] Calcium [Mass/Vol] 9.6 mg/dL 8.6 - 10.4 mg/dL [facility] Chloride [Moles/Vol] 102 mmol/L 98 - 107 mmol/L [facility] CO2 [Moles/Vol] 25 mmol/L 20 - 31 mmol/L [facility] Creatinine [Mass/Vol] 0.77 mg/dL 0.50 - 0.90 mg/dL [facility] Free PSA/Total PSA [Mass fraction] 7.4 g/dL 6.4 - 8.3 g/dL [facility] GFR >60 >60 mL/min [facility] GFR Non- >60 >60 mL/min [facility] GFR/1.73 sq M.predicted MDRD (S/P/Bld) [Vol rate/Area] [facility] Comment on above: Average GFR for 20-2 9 years old: 116 mL/min/1.73sq m Chronic Kidney Disease: <60 mL/min/1.73sq m Kidney failure: <15 mL/min/1.73sq m eGFR calculated using average adult body mass. Additional eGFR calculator available at: http://www.[employer]/multiple_crcl_2011.htm Glucose [Mass/Vol] 93 mg/dL 70 - 99 mg/dL [facility] Potassium [Moles/Vol] 4.2 mmol/L 3.7 - 5.3 mmol /L [facility] Sodium [Moles/Vol] 138 mmol/L 135 - 144 mmol/L [facility] Urea nitrogen (BldV) [Mass/Vol] 9 mg/dL 6 - 20 mg/dL [facility] Urea nitrogen/Creatinine (Bld) [Mass ratio] 12 [facility] Encounters Encounter Date Encounter Type Care Provider Facility Start: 11-13-2023 End: 11-13-2023 ambulatory NAHED RITA Not Available Start: 11-06-2023 End: 11-06-2023 ambulatory NAHED RITA Not Available Start: 10-31-2023 End: 10-31-2023 ambulatory NHAED RITA Not Available Start: 10-23-2023 End: 10-23-2023 [...] 05-30-2023 End: 05-31-2023 [facility] Start: 04-16-2023 End: 04-17-2023 [facility] Start: 12-13-2021 End: 12-13-2021 Subsequent hospital visit by physician Arpit Leblanc CNP Work Phone: [id number] Comment on above: Blood in stool, zeina k; Gastroesophageal reflux disease without esophagitis; Diarrhea, unspecified type; Abdominal cramping Start: 03-01-2019 End: 03-01-2019 Subsequent hospital visit by physician Arpit Parekh [facility] Comment on above: Need for varicella v accine Procedures Date Procedure Procedure Detail Performing Clinician Start: 12-13-2021 Comprehensive metabo lic panel Arpit Parekh APRN - [employer] Work Phone: Plan of Treatment Date Care Activity Detail Author Start: 11-26-2029 DTaP/Tdap/Td vaccine (3 - Td or Tdap) DTaP/Tdap/Td vaccine (3 - Td or Tdap) [facility] Start: 12-13-2022 Depression Screen Depression Screen [facility] Start: 03-14-2022 COVID-19 Vaccine (3 - Booster for Pfizer series) COVID-19 Vaccine (3 - Booster for Pfizer series) [facility] Start: 03-10-2022 Influenza vaccination Flu vaccine (S angelo Ended) [facility] Start: 01-11-2022 End: 01-11-2022 Patient encounter procedure 01/11/2022 Office Visit Family Medicine Arpit Parekh, [employer]IC[employer] - [employer] PERSON [address] [phone] [facility] Start: 2019 Screening for malign ant neoplasm of cervix Pap smear [facility] Start: 03-10-2019 Influenza vaccination Flu vaccine (# 1) [place], [place] Start: 2017 DTaP/Tdap/Td vaccine (1 - Tdap) DTaP/Tdap/Td vaccine (1 - Tdap) [place], [place] Start: 2016 Hepatitis C screening Hepatitis C sc reen [facility] Start: 2014 Chlamydia screen Chlamydia screen [place], [place] Start: 2014 Screening for Chlamy nathalie trachomatis Chlamydia screen [facility] Start: 2013 HIV screen HIV screen [place], [place] Start: 2013 HIV screening HIV screen [facility] Start: 2013 HPV vaccine (1 - Fem dana 3-dose series) HPV vaccine (1 - Female 3-dose series) [place], [place] Start: 2011 Varicella Vaccine (1 of 2 - 13+ 2-dose series) Varicella Vaccine (1 of 2 - 13+ 2-dose series) [place], [place] Start: 2009 HPV vaccine (1 - 2-d ose series) HPV vaccine (1 - 2-dose series) [facility] Start: 1999 Varicella vaccine (1 of 2 - 2-dose childhood series) Varicella vaccine (1 of 2 - 2-dose childhood series) [facility] End: 12-13-2021 CBC W Auto Differential panel - Blood CBC with Auto Differential Lab Routine Diarrhea, unspecified type Blood in stool, gustavo 1 Occurrences starting 12/13/2021 until 12/13/2021 [employer] Phone: Comment on above: 1 Occurrences starti ng 12/13/2021 until 12/13/2021 End: 12-13-2021 Celiac Disease Panel Celiac Disease Panel Lab Routine Diarrhea, unspecified type Abdominal cramping 1 Occurrences starting 12/13/2021 until 12/13/2021 [employer] Phone: Comment on above: 1 Occurrences starti ng 12/13/2021 until 12/13/2021 End: 12-13-2021 Celiac Plus [employer] Phone: Comment on above: Once for 1 Occurrenc es starting 12/13/2021 until 12/13/2021 End: 12-13-2021 Comprehensive metabolic 2000 panel - Serum or Plasma Comprehensive Metabolic Panel Lab Routine Blood in stool, gustavo Gastroesophageal reflux disease without esophagitis 1 Occurrences starting 12/13/2021 until 12/13/2021 [employer] Phone: Comment on above: 1 Occurrences starti ng 12/13/2021 until 12/13/2021 End: 03-01-2019 Varicella Zoster Antibody, IgG Varicella Zoster Antibody, IgG Lab Routine Need for varicella vaccine 1 Occurrences starting 03/01/2019 until 03/01/2019 [place], [place] Comment on above: 1 Occurrences starti ng 03/01/2019 until 03/01/2019 Varicella Zoster Antibody, IgG Varicella Zoster Antibody, IgG Lab Routine Need for varicella vaccine 03/01/2019 11:50 AM EDT [place], [place] Immunizations Immunization Date Immunization Notes Care Provider Rohit mcnally 09-18-2021 COVID-19, Pfizer Pur ple top, DILUTE for use, 12+ yrs, 30mcg/0.3mL dose Arpit Parekh [employer] - [employer] Work Phone: [employer] Phone: 11-27-2019 Hepatitis B vaccine (recombinant), CpG adjuvanted Arpit Parekh [facility] Work Phone: [facility] Work Phone: 11-27-2019 tetanus toxoid, redu gordon diphtheria toxoid, and acellular pertussis vaccine, adsorbed Arpit Parekh [facility] Work Phone: [facility] Work Phone: 03-27-2019 hepatitis B vaccine, adult dosage Arpit Parekh [facility] Work Phone: [facility] Work Phone: 03-27-2019 measles, mumps and rubella virus vaccine Arpit Parekh [facility] Work Phone: [facility] Work Phone: 03-03-2019 measles, mumps and rubella virus vaccine Arpit Parekh [facility] Work Phone: [facility] Work Phone: 02-25-2019 hepatitis B vaccine, adult dosage Arpit Parekh [facility] Payers Date Payer Category Payer Unknown [id number] 2022 Private Health Insurance [id number] 2018 Unknown BCBS [place] - [place] P PO xxxxxxxxxxxx 2018-Present [address] [place] [address] xxxxxxxxxxxx [id number] 2018 Unknown [id number] [id number] .[id number] 1998 Unknown [id number] 2.16.840.1.951599.3.579.2 .174 1998 Unknown [id number] 2.16.840.1.250936.3.579.2 .174 1998 Unknown [id number] 2.16.840.1.958058.3.579.2 .1259 1998 Unknown [id number] 2.16.840.1.906280.3.579.2 .9 1998 Unknown [id number] 2.16.840.1.554398.3.579.2 .9 1998 Unknown [id number] 2.16.840.1.572029.3.579.2 .9 1998 Unknown [id number] 2.16.840.1.779255.3.579.2 .1259 1998 Unknown [id number] 2.16.840.1.087924.3.579.2 .9 1998 Unknown [id number] 2.16.840.1.069182.3.579.2 .9 1998 Unknown [id number] 2.16.840.1.895929.3.579.2 .9 1998 Unknown [id number] 2.16.840.1.809411.3.579.2 .9 1998 Unknown [id number] 2.16.840.1.457754.3.579.2 .1259 Social History Date Type Detail Facility Start: 04-25-2016 End: 11-26-2018 Tobacco smoking status NHIS Never smoker [place], [place] Start: 11-26-2018 Alcohol intake No [place], [place] Start: 1998 Sex Assigned At Not on file M [place] Start: 04-25-2016 Tobacco use and exposure Smokeless tobacco non-user [employer] Phone: Start: 12-13-2021 Alcohol intake 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) [employer] Phone: Start: 12-13-2021 History SDOH Financial 5 [employer] Phone: Start: 12-13-2021 History 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 1 [facility] [employer] Work Phone: Evaluation note Note Date & Type Note Facility Evaluation note Diagnosis Blood in stool, gustavo Blood in stool Gastroesophageal reflux disease without esophagitis Esophageal reflux Diarrhea, unspecified type Abdominal cramping Abdominal pain, unspecified site documented in this encounter [facility] [employer] Work Phone: Assessments Diagnosis Need for varicella vaccine Need for prophylactic vaccination and inoculation against varicella Advance Directives No Advanced Directives Records FoundDocuments on File Type Date Recorded Patient Reimbursement Director Expl anation Advance Directives and Living Will Power of Supervisor Gluing Documents on File Type Date Recorded Patient Reimbursement Director Expl anation ACP-Advance Directive ACP-Power of Supervisor Gluing Summary Purpose Family History No Family History Records FoundNo Family History Records Found Additional Source Comments Care Teams (unrecognized sec tion and content) Inspector Boiler Relationship Specialty Start Date End Date Arpit Parekh, [employer] PERSON [address] [place] [address] PCP - General Nurse Practitioner 11/23/16 INFORMATION SOURCE (unrecogn ized section and content) DATE CREATED AUTHOR 06/02/2023 Lorriezahida QuirogaGrey Eaglemoriah allen DATE CREATED AUTHOR AUTHOR'S CHARLIE ATJUDD 11/14/2023 [facility] FOR RECORDS PERTAINING TO PATIENTS [...] BE BASED ON THE PRIMARY CLINICAL RECORDS. [employer] provides no warranty or guarantee of the accuracy or completeness of information in this document.
[2023-11-15 11:07] VITALS: BP 128/71; PULSE 90
== END 2023-11-15 11:41 | disposition home or self-care (01) ==
LOC: FBCO 07:28 → FBC 11:02
PROVIDERS: Visit Provider Obstetrics & Gynecology
DX: O99.283 Endocrine, nutritional and metabolic diseases complicating pregnancy, third trimester (principal)
CPT/HCPCS: 59025

== ENCOUNTER 2023-11-17 07:56 | Inpatient (IN) | payer BC, OTHER, SELFPAY ==
[2023-11-17] VITALS (53 sets, daily range): BP systolic 96–168; BP diastolic 52–107; PULSE 80–131; TEMP 36.8–37.1
--- OUTSIDE RECORDS SUMMARY | 2023-11-17 08:01 | XMS_ITS | CCD ---
Author Organization [facility] Care Team Providers Care Supervisor Felling Bucking Name Role Phone Arpit Parekh [facility] [...] 05-30-2023 Abs. Basophil 0.01 k/uL Normal 0.00-0.20 [facility] Comment on above: Performed By: #### C DP, CP #### [facility] [address] [place] [address] Endocrinology Teacher: Mike Forde MD Abs.Imm.Granulocyte 0.01 k/uL Normal 0.00-0.30 [facility] Comment on above: Performed By: #### C DP, CP #### [facility] [address] [place] [phone] Endocrinology Teacher: Mike Forde MD Abs.Neutrophil (Seg) 6.24 k/uL Normal 2.5-7.0 [facility] Comment on above: Performed By: #### C DP, CP #### [facility] [address] [place] [address] Endocrinology Teacher: Mike Forde MD Basophils/100 WBC (Bld) 0 % Normal 0-2 [facility] Comment on above: Performed By: #### C DP, CP #### [facility] [address] [place] [phone] Endocrinology Teacher: Mike Forde MD Eosinophils (Bld) [#/Vol] 0.00 10*3/uL Normal 0.00-0.40 [facility] Comment on above: Performed By: #### C DP, CP #### [facility] [address] [place] [address] Endocrinology Teacher: Mike Forde MD Eosinophils/100 WBC (Bld) 0 % Normal 0-5 [facility] Comment on above: Performed By: #### C DP, CP #### [facility] [address] [place], [place] [phone] Endocrinology Teacher: Mike Forde MD Erythrocyte distribution width (RBC) [Ratio] 11.9 % Low 12.1-15.2 [facility] Comment on above: Performed By: #### C DP, CP #### [facility] [address] [place], [place] [phone] Endocrinology Teacher: Mike Forde MD Hematocrit (Bld) [Volume fraction] 41.1 % Normal 36.0-46.0 [facility] Comment on above: Performed By: #### C DP, CP #### [facility] [address] [place], [place] [phone] Endocrinology Teacher: Mike Forde MD Hemoglobin (Bld) [Mass/Vol] 14.5 g/dL Normal 12.0-16.0 [facility] Comment on above: Performed By: #### C DP, CP #### [facility] [address] [place], [place] [phone] Endocrinology Teacher: Mike Forde MD Immature granulocytes/100 WBC (Bld) 0 % Normal 0-5 [facility] Comment on above: Performed By: #### C DP, CP #### [facility] [address] [place] [address] Endocrinology Teacher: Mike Forde MD Lymphocytes (Bld) [#/Vol] 1.74 10*3/uL Normal 1.00-4.80 [facility] Comment on above: Performed By: #### C DP, CP #### [facility] [address] [place], [place] [phone] Endocrinology Teacher: Mike Forde MD Lymphocytes/100 WBC (Bld) 21 % Normal 15-40 [facility] Comment on above: Performed By: #### C DP, CP #### [facility] [address] [place] [address] Endocrinology Teacher: Mike Forde MD MCH (RBC) [Entitic mass] 29.2 pg Normal 26.0-34.0 [facility] Comment on above: Performed By: #### C DP, CP #### [facility] [address] [place] [phone] Endocrinology Teacher: Mike Forde MD MCHC (RBC) [Mass/Vol] 35.3 g/dL Normal 31.0-37.0 [facility] Comment on above: Performed By: #### C DP, CP #### [facility] [address] [place] [phone] Endocrinology Teacher: Mike Forde MD MCV (RBC) [Entitic vol] 82.9 fL Normal 80.0-100.0 [facility] Comment on above: Performed By: #### C DP, CP #### [facility] [address] [place] [address] Endocrinology Teacher: Mike Forde MD Monocytes (Bld) [#/Vol] 0.50 10*3/uL Normal 0.00-1.00 [facility] Comment on above: Performed By: #### C DP, CP #### [facility] [address] [place] [phone] Endocrinology Teacher: Mike Forde MD Monocytes/100 WBC (Bld) 6 % Normal 4-8 [facility] Comment on above: Performed By: #### C DP, CP #### [facility] [address] [place] [address] Endocrinology Teacher: Mike Forde MD Neutrophil (Seg) 73 % Normal 47-75 [facility] Comment on above: Performed By: #### C DP, CP #### [facility] [address] [place], [place] [phone] Endocrinology Teacher: Mike Forde MD Platelet mean volume (Bld) [Entitic vol] 10.4 fL Normal 6.0-12.0 [facility] Comment on above: Performed By: #### C DP, CP #### [facility] [address] [place] [address] Endocrinology Teacher: Mike Forde MD Platelets (Bld) [#/Vol] 227 10*3/uL Normal 140-450 [facility] Comment on above: Performed By: #### C DP, CP #### [facility] [address] [place] [phone] Endocrinology Teacher: Mike Forde MD RBC (Bld) [#/Vol] 4.96 10*6/uL Normal 4.00-5.20 [facility] Comment on above: Performed By: #### C DP, CP #### [facility] [address] [place], [place] [phone] Endocrinology Teacher: Mike Forde MD WBC (Bld) [#/Vol] 8.5 10*3/uL Normal 3.5-11.0 [facility] Comment on above: Performed By: #### C DP, CP #### [facility] [address] [place] [address] Endocrinology Teacher: Mike Forde MD Comp Metabolic Profon 2022 Albumin [Mass/Vol] 4.2 g/dL Normal 3.5-5.2 [facility] Comment on above: Performed By: #### C DP, CP #### [facility] [address] [place] [address] Endocrinology Teacher: Mike Forde MD Alkaline Phos 48 U/L Normal 35-104 [facility] Comment on above: Performed By: #### C DP, CP #### [facility] [address] [place], [place] [phone] Endocrinology Teacher: Mike Forde MD ALT [Catalytic activity/Vol] 12 U/L Normal 5-33 [facility] Comment on above: Performed By: #### C DP, CP #### [facility] [address] [place], [place] [phone] Endocrinology Teacher: Mike Forde MD Anion gap [Moles/Vol] 15 mmol/L Normal 9-17 [facility] Comment on above: Performed By: #### C DP, CP #### [facility] [address] [place], [place] [phone] Endocrinology Teacher: Mike Forde MD AST [Catalytic activity/Vol] 11 U/L Normal <32 [facility] Comment on above: Performed By: #### C DP, CP #### [facility] [address] [place], [place] [phone] Endocrinology Teacher: Mike Forde MD Bilirubin [Mass/Vol] mg/dL Low 0.3-1.2 [facility] Comment on above: Performed By: #### C DP, CP #### [facility] [address] [place], [place] [phone] Endocrinology Teacher: Mike Forde MD BUN/CRE Ratio 14 Normal 9-20 [facility] Comment on above: Performed By: #### C DP, CP #### [facility] [address] [place], [place] [phone] Endocrinology Teacher: Mike Forde MD Calcium [Mass/Vol] 9.7 mg/dL Normal 8.6-10.4 [facility] Comment on above: Performed By: #### C DP, CP #### [facility] [address] [place], [place] [phone] Endocrinology Teacher: Mike Forde MD Chloride [Moles/Vol] 101 mmol/L Normal 98-107 [facility] Comment on above: Performed By: #### C DP, CP #### [facility] [address] [place], [place] [phone] Endocrinology Teacher: Mike Forde MD CO2 [Moles/Vol] 22 mmol/L Normal 20-31 [facility] Comment on above: Performed By: #### C DP, CP #### [facility] [address] [place] [address] Endocrinology Teacher: Mike Forde MD Creatinine [Mass/Vol] 0.5 mg/dL Normal 0.5-0.9 [facility] Comment on above: Performed By: #### C DP, CP #### [facility] [address] [place] [address] Endocrinology Teacher: Mike Forde MD GFR/1.73 sq M.predicted among non-blacks MDRD (S/P/Bld) [Vol rate/Area] mL/min/{1.73_m2} Normal >60 [facility] Comment on above: Result Comment: [...] Performed By: #### C DP, CP #### [facility] [address] [place] [address] Endocrinology Teacher: Mike Forde MD Glucose [Mass/Vol] 90 mg/dL Normal 70-99 [facility] Comment on above: Performed By: #### C DP, CP #### [facility] [address] [place], [place] [phone] Endocrinology Teacher: Mike Forde MD Potassium [Moles/Vol] 3.5 mmol/L Low 3.7-5.3 [facility] Comment on above: Performed By: #### C DP, CP #### [facility] [address] [place] [address] Endocrinology Teacher: Mike Forde MD Protein [Mass/Vol] 7.5 g/dL Normal 6.4-8.3 [facility] Comment on above: Performed By: #### C DP, CP #### [facility] [address] [place], [place] [phone] Endocrinology Teacher: Mike Forde MD Sodium [Moles/Vol] 138 mmol/L Normal 135-144 [facility] Comment on above: Performed By: #### C DP, CP #### [facility] [address] [place] [address] Endocrinology Teacher: Mike Forde MD Urea nitrogen [Mass/Vol] 7 mg/dL Normal 6-20 [facility] Comment on above: Performed By: #### C DP, CP #### [facility] [address] [place] [address] Endocrinology Teacher: Mike Forde MD Basic Metabolic Profon 04-16 Anion gap [Moles/Vol] 15 mmol/L Normal - [facility] Comment on above: Performed By: #### C DP, BMP #### [facility] [address] [place] [address] Endocrinology Teacher: Mike Forde MD BUN/CRE Ratio 10 Normal -20 [facility] Comment on above: Performed By: #### C DP, BMP #### [facility] [address] [place] [address] Endocrinology Teacher: Mike Forde MD Calcium [Mass/Vol] 10.2 mg/dL Normal 8.6-10.4 [facility] Comment on above: Performed By: #### C DP, BMP #### [facility] [address] [place], [place] [phone] Endocrinology Teacher: Mike Forde MD Chloride [Moles/Vol] 98 mmol/L Normal 98-107 [facility] Comment on above: Performed By: #### C DP, BMP #### [facility] [address] [place] [address] Endocrinology Teacher: Mike Forde MD CO2 [Moles/Vol] 22 mmol/L Normal 20-31 [facility] Comment on above: Performed By: #### C DP, BMP #### [facility] [address] [place] [address] Endocrinology Teacher: Mike Forde MD Creatinine [Mass/Vol] 0.7 mg/dL Normal 0.5-0.9 [facility] Comment on above: Performed By: #### C DP, BMP #### [facility] [address] [place], [place] [phone] Endocrinology Teacher: Mike Forde MD GFR/1.73 sq M.predicted among non-blacks MDRD (S/P/Bld) [Vol rate/Area] mL/min/{1.73_m2} Normal >60 [facility] Comment on above: Result Comment: [...] Performed By: #### C DP, BMP #### [facility] [address] [place], [place] [phone] Endocrinology Teacher: Mike Forde MD Glucose [Mass/Vol] 113 mg/dL High 70-99 [facility] Comment on above: Performed By: #### C DP, BMP #### [facility] [address] [place] [address] Endocrinology Teacher: Mike Forde MD Potassium [Moles/Vol] 3.4 mmol/L Low 3.7-5.3 [facility] Comment on above: Performed By: #### C DP, BMP #### [facility] [address] [place] [phone] Endocrinology Teacher: Mike Forde MD Sodium [Moles/Vol] 135 mmol/L Normal 135-144 [facility] Comment on above: Performed By: #### C DP, BMP #### [facility] [address] [place] [phone] Endocrinology Teacher: Mike Forde MD Urea nitrogen [Mass/Vol] 7 mg/dL Normal 6-20 [facility] Comment on above: Performed By: #### C DP, BMP #### [facility] [address] [place] [address] Endocrinology Teacher: Mike Forde MD CBC with Diffon 04-16-2023 Abs. Basophil 0.03 k/uL Normal 0.00-0.20 [facility] Comment on above: Performed By: #### C DP, BMP #### [facility] [address] [place] [phone] Endocrinology Teacher: Mike Forde MD Abs.Imm.Granulocyte 0.02 k/uL Normal 0.00-0.30 [facility] Comment on above: Performed By: #### C DP, BMP #### [facility] [address] [place] [address] Endocrinology Teacher: Mike Forde MD Abs.Neutrophil (Seg) 7.51 k/uL High 2.5-7.0 [facility] Comment on above: Performed By: #### C DP, BMP #### [facility] [address] [place] [phone] Endocrinology Teacher: Mike Forde MD Basophils/100 WBC (Bld) 0 % Normal 0-2 [facility] Comment on above: Performed By: #### C DP, BMP #### [facility] [address] [place], [place] [phone] Endocrinology Teacher: Mike Forde MD Eosinophils (Bld) [#/Vol] 0.03 10*3/uL Normal 0.00-0.40 [facility] Comment on above: Performed By: #### C DP, BMP #### [facility] [address] [place], [place] [phone] Endocrinology Teacher: Mike Forde MD Eosinophils/100 WBC (Bld) 0 % Normal 0-5 [facility] Comment on above: Performed By: #### C DP, BMP #### [facility] [address] [place] [address] Endocrinology Teacher: Mike Forde MD Erythrocyte distribution width (RBC) [Ratio] 11.8 % Low 12.1-15.2 [facility] Comment on above: Performed By: #### C DP, BMP #### [facility] [address] [place], [place] [phone] Endocrinology Teacher: Mike Forde MD Hematocrit (Bld) [Volume fraction] 43.4 % Normal 36.0-46.0 [facility] Comment on above: Performed By: #### C DP, BMP #### [facility] [address] [place], [place] [phone] Endocrinology Teacher: Mike Forde MD Hemoglobin (Bld) [Mass/Vol] 15.5 g/dL Normal 12.0-16.0 [facility] Comment on above: Performed By: #### C DP, BMP #### [facility] [address] [place], [place] [phone] Endocrinology Teacher: Mike Forde MD Immature granulocytes/100 WBC (Bld) 0 % Normal 0-5 [facility] Comment on above: Performed By: #### C DP, BMP #### [facility] [address] [place], [place] [phone] Endocrinology Teacher: Mike Forde MD Lymphocytes (Bld) [#/Vol] 2.33 10*3/uL Normal 1.00-4.80 [facility] Comment on above: Performed By: #### C DP, BMP #### [facility] [address] [place] [address] Endocrinology Teacher: Mike Forde MD Lymphocytes/100 WBC (Bld) 22 % Normal 15-40 [facility] Comment on above: Performed By: #### C DP, BMP #### [facility] [address] [place] [phone] Endocrinology Teacher: Mike Forde MD MCH (RBC) [Entitic mass] 28.9 pg Normal 26.0-34.0 [facility] Comment on above: Performed By: #### C DP, BMP #### [facility] [address] [place] [phone] Endocrinology Teacher: Mike Forde MD MCHC (RBC) [Mass/Vol] 35.7 g/dL Normal 31.0-37.0 [facility] Comment on above: Performed By: #### C DP, BMP #### [facility] [address] [place] [address] Endocrinology Teacher: Mike Forde MD MCV (RBC) [Entitic vol] 80.8 fL Normal 80.0-100.0 [facility] Comment on above: Performed By: #### C DP, BMP #### [facility] [address] [place] [address] Endocrinology Teacher: Mike Forde MD Monocytes (Bld) [#/Vol] 0.88 10*3/uL Normal 0.00-1.00 [facility] Comment on above: Performed By: #### C DP, BMP #### [facility] [address] [place] [address] Endocrinology Teacher: Mike Forde MD Monocytes/100 WBC (Bld) 8 % Normal 4-8 [facility] Comment on above: Performed By: #### C DP, BMP #### [facility] [address] [place], [place] [phone] Endocrinology Teacher: Mike Forde MD Neutrophil (Seg) 70 % Normal 47-75 [facility] Comment on above: Performed By: #### C DP, BMP #### [facility] [address] [place], [place] [phone] Endocrinology Teacher: Mike Forde MD Platelet mean volume (Bld) [Entitic vol] 10.5 fL Normal 6.0-12.0 [facility] Comment on above: Performed By: #### C DP, BMP #### [facility] [address] [place], [place] [phone] ([phone] Endocrinology Teacher: Mike Forde MD Platelets (Bld) [#/Vol] 279 10*3/uL Normal 140-450 [facility] Comment on above: Performed By: #### C DP, BMP #### [facility] [address] [place], [place] [phone] ([phone] Endocrinology Teacher: Mike Forde MD RBC (Bld) [#/Vol] 5.37 10*6/uL High 4.00-5.20 [facility] Comment on above: Performed By: #### C DP, BMP #### [facility] [address] [place], [place] [phone] ([phone] Endocrinology Teacher: Mike Forde MD WBC (Bld) [#/Vol] 10.8 10*3/uL Normal 3.5-11.0 [facility] Comment on above: Performed By: #### C DP, BMP #### [facility] [address] [place], [place] [phone] Endocrinology Teacher: Mike Forde MD CBC with Auto Differentialon 12-13-2021 Absolute Eos # 0.00 [facility] Absolute Lymph # 1.90 [facility] Absolute Bollinger # 0.50 [facility] Basophils (Bld) [#/Vol] 0.00 10*3/uL [facility] Basophils/100 WBC (Bld) 0 % 0 - 2 % [facility] Differential Type YES [facility] Eosinophils/100 WBC (Bld) 0 % 0 - 5 % [facility] Hematocrit (Bld) [Volume fraction] 43.5 % 36 - 46 % [facility] Hemoglobin (Bld) [Mass/Vol] 14.6 g/dL 12.0 - 16.0 g/dL [facility] Lymphocytes/100 WBC (Bld) 21 % 15 - 40 % [facility] MCH (RBC) [Entitic mass] 28.9 pg 26 - 34 pg [facility] MCHC (RBC) [Mass/Vol] 33.5 g/dL 31 - 37 g/dL [facility] MCV (RBC) [Entitic vol] 86.2 fL 80 - 100 fL [facility] Monocytes/100 WBC (Bld) 5 % 4 - 8 % [facility] Platelet distribution width (Bld) [Ratio] 12.3 % 12.1 - 15.2 % [facility] Platelets (Bld) [#/Vol] 265 10*3/uL [facility] RBC (Bld) [#/Vol] 5.05 10*6/uL 4.0 - 5.2 m/uL [facility] Segmented neutrophils/100 WBC (Bld) 74 % 47 - 75 % [facility] Segs Absolute 6.60 [facility] WBC (Bld) [#/Vol] 9.1 10*3/uL [facility] Comprehensive Metabolic Pane davi 12-13-2021 Albumin [Mass/Vol] 4.3 g/dL 3.5 - 5.2 g/dL [facility] ALP (Bld) [Catalytic activity/Vol] 77 U/L 35 - 104 U/L [facility] ALT [Catalytic activity/Vol] 23 U/L 5 - 33 U/L [facility] Anion gap [Moles/Vol] 11 mmol/L 9 - 17 mmol/L [facility] AST [Catalytic activity/Vol] 15 U/L <32 [facility] Bilirubin [Mass/Vol] 0.51 mg/dL 0.30 - 1.20 mg/dL [facility] Calcium [Mass/Vol] 9.6 mg/dL 8.6 - 10.4 mg/dL [facility] Chloride [Moles/Vol] 102 mmol/L 98 - 107 mmol/L [facility] CO2 [Moles/Vol] 25 mmol/L 20 - 31 mmol/L [facility] Creatinine [Mass/Vol] 0.77 mg/dL 0.50 - 0.90 mg/dL [facility] Free PSA/Total PSA [Mass fraction] 7.4 g/dL 6.4 - 8.3 g/dL [facility] GFR >60 >60 mL/min [facility] GFR Non- >60 >60 mL/min [facility] GFR/1.73 sq M.predicted MDRD (S/P/Bld) [Vol rate/Area] [facility] Comment on above: Average GFR for 20-2 9 years old: 116 mL/min/1.73sq m Chronic Kidney Disease: <60 mL/min/1.73sq m Kidney failure: <15 mL/min/1.73sq m eGFR calculated using average adult body mass. Additional eGFR calculator available at: http://www.[employer]/multiple_crcl_2011.htm Glucose [Mass/Vol] 93 mg/dL 70 - 99 mg/dL [facility] Potassium [Moles/Vol] 4.2 mmol/L 3.7 - 5.3 mmol /L [facility] Sodium [Moles/Vol] 138 mmol/L 135 - 144 mmol/L [facility] Urea nitrogen (BldV) [Mass/Vol] 9 mg/dL 6 - 20 mg/dL [facility] Urea nitrogen/Creatinine (Bld) [Mass ratio] 12 [facility] Encounters Encounter Date Encounter Type [...] 05-30-2023 End: 05-31-2023 [facility] Start: 04-16-2023 End: 04-17-2023 [facility] Start: 12-13-2021 End: 12-13-2021 Subsequent hospital visit by physician Arpit Leblanc CNP Work Phone: [facility] Comment on above: Blood in stool, zeina k; Gastroesophageal reflux disease without esophagitis; Diarrhea, unspecified type; Abdominal cramping Start: 03-01-2019 End: 03-01-2019 Subsequent hospital visit by physician Arpit Parekh [facility] Comment on above: Need for varicella v accine Procedures Date Procedure Procedure Detail Performing Clinician Start: 12-13-2021 Comprehensive metabo lic panel Arpit Parekh APRN - PSYCHOMETRICIAN Work Phone: Plan of Treatment Date Care Activity Detail Author Start: 11-26-2029 DTaP/Tdap/Td vaccine (3 - Td or Tdap) DTaP/Tdap/Td vaccine (3 - Td or Tdap) [facility] Start: 12-13-2022 Depression Screen Depression Screen [facility] Start: 03-14-2022 COVID-19 Vaccine (3 - Booster for Pfizer series) COVID-19 Vaccine (3 - Booster for Pfizer series) [facility] Start: 03-10-2022 Influenza vaccination Flu vaccine (S angelo Ended) [facility] Start: 01-11-2022 End: 01-11-2022 Patient encounter procedure 01/11/2022 Office Visit Family Medicine Arpit Parekh, [employer] - PSYCHOMETRICIAN [address] [phone] [facility] [place] Start: 2019 Screening for malign ant neoplasm of cervix Pap smear [facility] Start: 03-10-2019 Influenza vaccination Flu vaccine (# 1) [place], [place] Start: 2017 DTaP/Tdap/Td vaccine (1 - Tdap) DTaP/Tdap/Td vaccine (1 - Tdap) [place], [place] Start: 2016 Hepatitis C screening Hepatitis C sc reen [facility] Start: 2014 Chlamydia screen Chlamydia screen [place], [place] Start: 2014 Screening for Chlamy nathalie trachomatis Chlamydia screen [facility] Start: 2013 HIV screen HIV screen [place], [place] Start: 2013 HIV screening HIV screen [facility] Start: 2013 HPV vaccine (1 - Fem dana 3-dose series) HPV vaccine (1 - Female 3-dose series) [place] Start: 2011 Varicella Vaccine (1 of 2 - 13+ 2-dose series) Varicella Vaccine (1 of 2 - 13+ 2-dose series) [place] Start: 2009 HPV vaccine (1 - 2-d ose series) HPV vaccine (1 - 2-dose series) [facility] Start: 1999 Varicella vaccine (1 of 2 - 2-dose childhood series) Varicella vaccine (1 of 2 - 2-dose childhood series) [facility] End: 12-13-2021 CBC W Auto Differential panel - Blood CBC with Auto Differential Lab Routine Diarrhea, unspecified type Blood in stool, gustavo 1 Occurrences starting 12/13/2021 until 12/13/2021 [employer]: Comment on above: 1 Occurrences starti ng 12/13/2021 until 12/13/2021 End: 12-13-2021 Celiac Disease Panel Celiac Disease Panel Lab Routine Diarrhea, unspecified type Abdominal cramping 1 Occurrences starting 12/13/2021 until 12/13/2021 [employer]: Comment on above: 1 Occurrences starti ng 12/13/2021 until 12/13/2021 End: 12-13-2021 Celiac Plus [employer]: Comment on above: Once for 1 Occurrenc es starting 12/13/2021 until 12/13/2021 End: 12-13-2021 Comprehensive metabolic 2000 panel - Serum or Plasma Comprehensive Metabolic Panel Lab Routine Blood in stool, gustavo Gastroesophageal reflux disease without esophagitis 1 Occurrences starting 12/13/2021 until 12/13/2021 [employer]: Comment on above: 1 Occurrences starti ng 12/13/2021 until 12/13/2021 End: 03-01-2019 Varicella Zoster Antibody, IgG Varicella Zoster Antibody, IgG Lab Routine Need for varicella vaccine 1 Occurrences starting 03/01/2019 until 03/01/2019 [place] Comment on above: 1 Occurrences starti ng 03/01/2019 until 03/01/2019 Varicella Zoster Antibody, IgG Varicella Zoster Antibody, IgG Lab Routine Need for varicella vaccine 03/01/2019 11:50 AM EDT [place] Immunizations Immunization Date Immunization Notes Care Provider Rohit mcnally 09-18-2021 COVID-19, Pfizer Pur ple top, DILUTE for use, 12+ yrs, 30mcg/0.3mL dose Arpit Parekh ACCOUNT EXECUTIVE METALWORKING - PSYCHOMETRICIAN Work Phone: [employer]: 11-27-2019 Hepatitis B vaccine (recombinant), CpG adjuvanted Arpit Parekh [facility] Work Phone: [facility] Work Phone: 11-27-2019 tetanus toxoid, redu gordon diphtheria toxoid, and acellular pertussis vaccine, adsorbed Arpit Parekh [facility] Work Phone: [facility] Work Phone: 03-27-2019 hepatitis B vaccine, adult dosage Arpit Parekh [facility] Work Phone: [facility] Work Phone: 03-27-2019 measles, mumps and rubella virus vaccine Arpit Parekh [facility] Work Phone: [facility] Work Phone: 03-03-2019 measles, mumps and rubella virus vaccine Arpit Parekh [facility] Work Phone: [facility] Work Phone: 02-25-2019 hepatitis B vaccine, adult dosage Arpit Parekh [facility] Payers Date Payer Category Payer Unknown [id number] 2022 Private Health Insurance [id number] 2018 Unknown BCBS [place] P PO xxxxxxxxxxxx 2018-Present [address] [place] [address] xxxxxxxxxxxx [id number] 2018 Unknown [id number] 1998 Unknown [id number] .174 1998 Unknown [id number] .174 1998 Unknown [id number] [id number] .1259 1998 Unknown [id number] [id number] .9 1998 Unknown [id number] [id number] .9 1998 Unknown [id number] [id number] .9 1998 Unknown [id number] [id number] .1259 1998 Unknown [id number] 2.16.840.1.848042.3.579.2 .9 1998 Unknown [id number] 2.16.840.1.287748.3.579.2 .9 1998 Unknown [id number] 2.16.840.1.236912.3.579.2 .9 1998 Unknown [id number] [id number] .9 1998 Unknown [id number] .1259 Social History Date Type Detail Facility Start: 04-25-2016 End: 11-26-2018 Tobacco smoking status NHIS Never smoker [place] Start: 11-26-2018 Alcohol intake No [place], [place] Start: 1998 Sex Assigned At Not on file [place] Start: 04-25-2016 Tobacco use and exposure Smokeless tobacco non-user [employer]: Start: 12-13-2021 Alcohol intake 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) [employer]: Start: 12-13-2021 History SDOH Financial 5 [employer]: Start: 12-13-2021 History 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 1 [facility] [employer] Work Phone: Evaluation note Note Date & Type Note Facility Evaluation note Diagnosis Blood in stool, gustavo Blood in stool Gastroesophageal reflux disease without esophagitis Esophageal reflux Diarrhea, unspecified type Abdominal cramping Abdominal pain, unspecified site documented in this encounter [facility] [employer] Work Phone: Assessments Diagnosis Need for varicella vaccine Need for prophylactic vaccination and inoculation against varicella Advance Directives No Advanced Directives Records FoundDocuments on File Type Date Recorded Patient Metalizer Expl anation Advance Directives and Living Will Power of Dish Technician Documents on File Type Date Recorded Patient Metalizer Expl anation ACP-Advance Directive ACP-Power of Dish Technician Summary Purpose Family History No Family History Records FoundNo Family History Records Found Additional Source Comments Care Teams (unrecognized sec tion and content) Supervisor Felling Bucking Relationship Specialty Start Date End Date Arpit Parekh, ACCOUNT EXECUTIVE METALWORKING - PSYCHOMETRICIAN [address] [place] [address] PCP - General Nurse Practitioner 11/23/16 INFORMATION SOURCE (unrecogn ized section and content) DATE CREATED AUTHOR 06/02/2023 Lorriezahida QuirogaXumoriah allen DATE CREATED AUTHOR AUTHOR'S CHARLIE ATJUDD 11/14/2023 [facility] FOR RECORDS PERTAINING TO PATIENTS WHO [...] BE BASED ON THE PRIMARY CLINICAL RECORDS. [employer] provides no warranty or guarantee of the accuracy or completeness of information in this document.
[2023-11-17 09:28] LABS: Hematocrit 37.1 % (36.0-48.0); Hemoglobin 11.9 g/dL (12.0-16.0); Mean Corpuscular HGB Conc 32.1 g/dL (29.9-35.2); Mean Corpuscular Hemoglobin 27.2 pg (26.7-34.0); Mean Corpuscular Volume 84.9 fL (81.0-99.0); Mean Platelet Volume 11.8 fL (9.5-13.5); Platelet Count 261 10^3/uL (150-450); Red Blood Count 4.37 10^6/uL (4.20-5.40); Red Cell Distribution Width 13.2 % (11.0-15.0); White Blood Count 9.4 10^3/uL (4.0-11.0)
[2023-11-17] MEDS: 0.9 % SODIUM CHLORIDE 1,000 ML 125 ML IV (09:30)
[2023-11-17] MEDS: ONDANSETRON PF 4 MG/2 ML VIAL IV (10:04)
[2023-11-17] MEDS: ROPIVACAINE HCL/PF 400 MG/200 ML PREMIX 10 MG EPIDURAL (11:31)
[2023-11-17] MEDS: ROPIVACAINE HCL 0.2% PF 40 MG/20 ML VIAL EPIDURAL (11:31)
[2023-11-17] MEDS: OXYTOCIN/0.9 % SODIUM CHLORIDE 10 UNITS/500 ML PLAST..BAG 6 UNIT IV (12:22)
[2023-11-17 13:50] LABS: Amphetamine Screen Urine NEGATIVE (NEGATIVE); Benzodiazepines Screen Urine NEGATIVE (NEGATIVE); Cannabinoid Screen Urine NEGATIVE (NEGATIVE); Cocaine Screen Urine NEGATIVE (NEGATIVE); Methamphetamines Screen Urine NEGATIVE (NEGATIVE); Opiate Screen Urine NEGATIVE (NEGATIVE); Phencyclidine Screen Urine NEGATIVE (NEGATIVE); Tricyclic Antidepressant Urine NEGATIVE (NEGATIVE)
[2023-11-17 13:51] LABS: Barbiturates Screen Urine NEGATIVE (NEGATIVE); Buprenorphine Screen Urine NEGATIVE (NEGATIVE); Methadone Screen Urine NEGATIVE (NEGATIVE); Oxycodone Screen Urine NEGATIVE (NEGATIVE)
[2023-11-17] MEDS: OXYTOCIN/0.9 % SODIUM CHLORIDE 20 UNITS/1,000 ML PLAST..BAG 999 UNIT IV (15:15)
--- NOTE | 2023-11-17 15:24 | PM.OBPRCVD ---
Procedure Intrapartal events: None Induction method: none Delivery augmentation: rupture of membranes Delivery monitor: external FHT and external uterine Route of delivery: Episiotomy Description: none L&D Laceration Description: perineal - 2nd degree Delivery repair: Vicryl Estimated blood loss (mL): 200 Anesthesia type: Epidural Disposition: PACU Delivery date: 11/17/23 Gender: male presentation: vertex Placental delivery description: Spontaneous cord description: 3 Vessels
[2023-11-18] MEDS: IBUPROFEN 600 MG TABLET PO ×2 (04:20→11:23)
[2023-11-18 06:13] LABS: Basophils Percent Auto 0.4 % (0.2-2.0); Eosinophils Percent Auto 0.3 % (0.9-7.0); Hematocrit 30.9 % (36.0-48.0); Hemoglobin 9.6 g/dL (12.0-16.0); Immature Granulocytes Abs Auto 0.04 10^3/uL (0.00-0.03); Immature Granulocytes Pct Auto 0.4 % (0.0-0.5); Lymphocytes Absolute Auto 1.6 10^3/uL (1.2-3.8); Lymphocytes Percent Auto 16.1 % (20.5-60.0); Mean Corpuscular HGB Conc 31.1 g/dL (29.9-35.2); Mean Corpuscular Hemoglobin 27.4 pg (26.7-34.0); Mean Corpuscular Volume 88.3 fL (81.0-99.0); Mean Platelet Volume 11.7 fL (9.5-13.5); Monocytes Absolute Auto 0.5 10^3/uL (0.3-0.8); Monocytes Percent Auto 5.4 % (1.7-12.0); Neutrophils Absolute Auto 7.8 10^3/uL (1.4-6.5); Neutrophils Percent Auto 77.4 % (43.0-75.0); Platelet Count 175 10^3/uL (150-450); Red Cell Distribution Width 13.6 % (11.0-15.0)
[2023-11-18 08:06] VITALS: BP 120/73; PULSE 100
--- NOTE | 2023-11-18 08:46 | PM.OBPN ---
OB - PN: Subj Subjective Patient comments: no complaints [place] status: doing well [place] feeding status: exclusively Exam Constitutional Vital Signs, click to edit/add: Last Vital Signs Temp 98.7 F 11/17/23 23:45 Pulse 100 H 11/18/23 08:06 Resp 20 11/17/23 18:11 BP 120/73 11/18/23 08:06 Documenting provider has reviewed patient's vital signs: yes Common normals: no apparent distress Orientation/consciousness: Yes awake, Yes oriented to person, Yes oriented to place and Yes oriented to time HENMT Common normals: normocephalic Eye Common normals: EOMs intact bilaterally Neck & C-Spine Common normals: full ROM and no lymphadenopathy Lymph Lymphatic: no lymphadenopathy noted Chest Common normals: inspection of chest normal Respiratory Common normals: normal respiratory effort, no retractions, no use of accessory muscles and clear to auscultation bilaterally Cardio Common normals: regular rate and regular rhythm Rate: regular rate GI Common normals: Normal to inspection, nondistended, normoactive bowel sounds present Inspection: normal to inspection Palpation: soft Common normals: no CVA tenderness Back & Pelvis Common normals: no CVA tenderness Extremity Common normals: normal to inspection and full ROM Neuro Anabel Coma Scale: document GCS findings Common normals: oriented x3 Psych Common normals: mental status grossly normal Appearance: well kempt Attitude: calm Results Labs Labs: Short CBC 11/17/23 11/18/23 Range/Units 08:25 06:03 WBC 9.4 10.0 (4.0-11.0) 10^3/uL Hgb 11.9 L 9.6 L (12.0-16.0) g/dL Hct 37.1 30.9 L (36.0-48.0) % Plt Count 261 175 (150-450) 10^3/uL OB - PN: A/P Plan - Vaginal Delivery day: 1 Plan: routine care Time Spent with Patient Time: Total time spent is greater than 50% in coordination of care (as documented) at patient's floor/unit and/or counseling patient: Total time spent with greater than 50% in coordination of care (as documented) at patient's floor/unit and/or counseling patient: less than 15 minutes
[2023-11-18 09:10] VITALS: TEMP 36.7
[2023-11-18] MEDS: DOCUSATE SODIUM 100 MG CAPSULE PO (11:24)
--- OUTSIDE RECORDS SUMMARY | 2023-11-20 10:44 | XMS_ITS | CCD ---
Author Organization [facility] Care Team Providers Care Topographical Field Assistant Name Role Phone Arpit Parekh Primary Care [...] 05-30-2023 Abs. Basophil 0.01 k/uL Normal 0.00-0.20 [facility] Comment on above: Performed By: #### C DP, CP #### [facility] [address] [place] [address] Line Lead: Mike Forde MD Abs.Imm.Granulocyte 0.01 k/uL Normal 0.00-0.30 [facility] Comment on above: Performed By: #### C DP, CP #### [facility] [address] [place] [phone] Line Lead: Mike Forde MD Abs.Neutrophil (Seg) 6.24 k/uL Normal 2.5-7.0 [facility] Comment on above: Performed By: #### C DP, CP #### [facility] [address] [place] [address] Line Lead: Mike Forde MD Basophils/100 WBC (Bld) 0 % Normal 0-2 [facility] Comment on above: Performed By: #### C DP, CP #### [facility] [address] [place] [id number] Line Lead: Mike Forde MD Eosinophils (Bld) [#/Vol] 0.00 10*3/uL Normal 0.00-0.40 [facility] Comment on above: Performed By: #### C DP, CP #### [facility] [address] [place] [address] Line Lead: Mike Forde MD Eosinophils/100 WBC (Bld) 0 % Normal 0-5 [facility] Comment on above: Performed By: #### C DP, CP #### [facility] [address] [place], [place] [phone] Line Lead: Mike Forde MD Erythrocyte distribution width (RBC) [Ratio] 11.9 % Low 12.1-15.2 [facility] Comment on above: Performed By: #### C DP, CP #### [facility] [address] [place], [place] 1005890 Line Lead: Mike Forde MD Hematocrit (Bld) [Volume fraction] 41.1 % Normal 36.0-46.0 [facility] Comment on above: Performed By: #### C DP, CP #### [facility] [address] [place], [place] [phone] Line Lead: Mike Forde MD Hemoglobin (Bld) [Mass/Vol] 14.5 g/dL Normal 12.0-16.0 [facility] Comment on above: Performed By: #### C DP, CP #### [facility] [address] [place], [place] 2338190 Line Lead: Mike Forde MD Immature granulocytes/100 WBC (Bld) 0 % Normal 0-5 [facility] Comment on above: Performed By: #### C DP, CP #### [facility] [address] [place] [address] Line Lead: Mike Forde MD Lymphocytes (Bld) [#/Vol] 1.74 10*3/uL Normal 1.00-4.80 [facility] Comment on above: Performed By: #### C DP, CP #### [facility] [address] [place], [place] [id number] Line Lead: Mike Forde MD Lymphocytes/100 WBC (Bld) 21 % Normal 15-40 [facility] Comment on above: Performed By: #### C DP, CP #### [facility] [address] [place] [address] Line Lead: Mike Forde MD MCH (RBC) [Entitic mass] 29.2 pg Normal 26.0-34.0 [facility] Comment on above: Performed By: #### C DP, CP #### [facility] [address] [place] [phone] Line Lead: Mike Forde MD MCHC (RBC) [Mass/Vol] 35.3 g/dL Normal 31.0-37.0 [facility] Comment on above: Performed By: #### C DP, CP #### [facility] [address] [place] [phone] Line Lead: Mike Forde MD MCV (RBC) [Entitic vol] 82.9 fL Normal 80.0-100.0 [facility] Comment on above: Performed By: #### C DP, CP #### [facility] [address] [place] [address] Line Lead: Mike Forde MD Monocytes (Bld) [#/Vol] 0.50 10*3/uL Normal 0.00-1.00 [facility] Comment on above: Performed By: #### C DP, CP #### [facility] [address] [place] [phone] Line Lead: Mike Forde MD Monocytes/100 WBC (Bld) 6 % Normal 4-8 [facility] Comment on above: Performed By: #### C DP, CP #### [facility] [address] [place] [address] Line Lead: Mike Forde MD Neutrophil (Seg) 73 % Normal 47-75 [facility] Comment on above: Performed By: #### C DP, CP #### [facility] [address] [place], [place] [id number] Line Lead: Mike Forde MD Platelet mean volume (Bld) [Entitic vol] 10.4 fL Normal 6.0-12.0 [facility] Comment on above: Performed By: #### C DP, CP #### [facility] [address] [place] [address] Line Lead: Mike Forde MD Platelets (Bld) [#/Vol] 227 10*3/uL Normal 140-450 [facility] Comment on above: Performed By: #### C DP, CP #### [facility] [address] [place] [phone] Line Lead: Mike Forde MD RBC (Bld) [#/Vol] 4.96 10*6/uL Normal 4.00-5.20 [facility] Comment on above: Performed By: #### C DP, CP #### [facility] [address] [place], [place] [phone] Line Lead: Mike Forde MD WBC (Bld) [#/Vol] 8.5 10*3/uL Normal 3.5-11.0 [facility] Comment on above: Performed By: #### C DP, CP #### [facility] [address] [place] [address] Line Lead: Mike Forde MD Comp Metabolic Profon 2022 Albumin [Mass/Vol] 4.2 g/dL Normal 3.5-5.2 [facility] Comment on above: Performed By: #### C DP, CP #### [facility] [address] [place] [address] Line Lead: Mike Forde MD Alkaline Phos 48 U/L Normal 35-104 [facility] Comment on above: Performed By: #### C DP, CP #### [facility] [address] [place], [place] [phone] Line Lead: Mike Forde MD ALT [Catalytic activity/Vol] 12 U/L Normal 5-33 [facility] Comment on above: Performed By: #### C DP, CP #### [facility] [address] [place], [place] [id number] Line Lead: Mike Forde MD Anion gap [Moles/Vol] 15 mmol/L Normal 9-17 [facility] Comment on above: Performed By: #### C DP, CP #### [facility] [address] [place], [place] [id number] Line Lead: Mike Forde MD AST [Catalytic activity/Vol] 11 U/L Normal <32 [facility] Comment on above: Performed By: #### C DP, CP #### [facility] [address] [place], [place] [id number] Line Lead: Mike Forde MD Bilirubin [Mass/Vol] mg/dL Low 0.3-1.2 [facility] Comment on above: Performed By: #### C DP, CP #### [facility] [address] [place], [place] 6558190 Line Lead: Mike Forde MD BUN/CRE Ratio 14 Normal 9-20 [facility] Comment on above: Performed By: #### C DP, CP #### [facility] [address] [place], [place] 11536[address] Line Lead: Mike Forde MD Calcium [Mass/Vol] 9.7 mg/dL Normal 8.6-10.4 [facility] Comment on above: Performed By: #### C DP, CP #### [facility] [address] [place], [place] 285[address] Line Lead: Mike Forde MD Chloride [Moles/Vol] 101 mmol/L Normal 98-107 [facility] Comment on above: Performed By: #### C DP, CP #### [facility] [address] [place], [place] [address] Line Lead: Mike Forde MD CO2 [Moles/Vol] 22 mmol/L Normal 20-31 [facility] Comment on above: Performed By: #### C DP, CP #### [facility] [address] [place] [address] Line Lead: Mike Forde MD Creatinine [Mass/Vol] 0.5 mg/dL Normal 0.5-0.9 [facility] Comment on above: Performed By: #### C DP, CP #### [facility] [address] [place] [address] Line Lead: Mike Forde MD GFR/1.73 sq M.predicted among non-blacks MDRD (S/P/Bld) [Vol rate/Area] mL/min/{1.73_m2} Normal >60 [facility] Comment on above: Result Comment: These [...] Performed By: #### C DP, CP #### [facility] [address] [place] [address] Line Lead: Mike Forde MD Glucose [Mass/Vol] 90 mg/dL Normal 70-99 [facility] Comment on above: Performed By: #### C DP, CP #### [facility] [address] [place], [place] [phone] Line Lead: Mike Forde MD Potassium [Moles/Vol] 3.5 mmol/L Low 3.7-5.3 [facility] Comment on above: Performed By: #### C DP, CP #### [facility] [address] [place] [address] Line Lead: Mike Forde MD Protein [Mass/Vol] 7.5 g/dL Normal 6.4-8.3 [facility] Comment on above: Performed By: #### C DP, CP #### [facility] [address] [place], [place] [phone] Line Lead: Mike Forde MD Sodium [Moles/Vol] 138 mmol/L Normal 135-144 [facility] Comment on above: Performed By: #### C DP, CP #### [facility] [address] [place] [address] Line Lead: Mike Forde MD Urea nitrogen [Mass/Vol] 7 mg/dL Normal 6-20 [facility] Comment on above: Performed By: #### C DP, CP #### [facility] [address] [place] [address] Line Lead: Mike Forde MD Basic Metabolic Profon 04-16 Anion gap [Moles/Vol] 15 mmol/L Normal - [facility] Comment on above: Performed By: #### C DP, BMP #### [facility] [address] [place] [address] Line Lead: Mike Forde MD BUN/CRE Ratio 10 Normal -20 [facility] Comment on above: Performed By: #### C DP, BMP #### [facility] [address] [place] [address] Line Lead: Mike Forde MD Calcium [Mass/Vol] 10.2 mg/dL Normal 8.6-10.4 [facility] Comment on above: Performed By: #### C DP, BMP #### [facility] [address] [place], [place] 11330[address] Line Lead: Mike Forde MD Chloride [Moles/Vol] 98 mmol/L Normal 98-107 [facility] Comment on above: Performed By: #### C DP, BMP #### [facility] [address] [place] [address] Line Lead: Mike Forde MD CO2 [Moles/Vol] 22 mmol/L Normal 20-31 [facility] Comment on above: Performed By: #### C DP, BMP #### [facility] [address] [place] [address] Line Lead: Mike Forde MD Creatinine [Mass/Vol] 0.7 mg/dL Normal 0.5-0.9 [facility] Comment on above: Performed By: #### C DP, BMP #### [facility] [address] [place], [place] 64947[address] Line Lead: Mike Forde MD GFR/1.73 sq M.predicted among non-blacks MDRD (S/P/Bld) [Vol rate/Area] mL/min/{1.73_m2} Normal >60 [facility] Comment on above: Result Comment: These [...] Performed By: #### C DP, BMP #### [facility] [address] [place], [place] 67870[address] Line Lead: Mike Forde MD Glucose [Mass/Vol] 113 mg/dL High 70-99 [facility] Comment on above: Performed By: #### C DP, BMP #### [facility] [address] [place] [address] Line Lead: Mike Forde MD Potassium [Moles/Vol] 3.4 mmol/L Low 3.7-5.3 [facility] Comment on above: Performed By: #### C DP, BMP #### [facility] [address] [place] [phone] Line Lead: Mike Forde MD Sodium [Moles/Vol] 135 mmol/L Normal 135-144 [facility] Comment on above: Performed By: #### C DP, BMP #### [facility] [address] [place] [phone] Line Lead: Mike Forde MD Urea nitrogen [Mass/Vol] 7 mg/dL Normal 6-20 [facility] Comment on above: Performed By: #### C DP, BMP #### [facility] [address] [place] [address] Line Lead: Mike Forde MD CBC with Diffon 04-16-2023 Abs. Basophil 0.03 k/uL Normal 0.00-0.20 [facility] Comment on above: Performed By: #### C DP, BMP #### [facility] [address] [place] [phone] Line Lead: Mike Forde MD Abs.Imm.Granulocyte 0.02 k/uL Normal 0.00-0.30 [facility] Comment on above: Performed By: #### C DP, BMP #### [facility] [address] [place] [address] Line Lead: Mike Forde MD Abs.Neutrophil (Seg) 7.51 k/uL High 2.5-7.0 [facility] Comment on above: Performed By: #### C DP, BMP #### [facility] [address] [place] [phone] Line Lead: Mike Forde MD Basophils/100 WBC (Bld) 0 % Normal 0-2 [facility] Comment on above: Performed By: #### C DP, BMP #### [facility] [address] [place], [place] [phone] Line Lead: Mike Forde MD Eosinophils (Bld) [#/Vol] 0.03 10*3/uL Normal 0.00-0.40 [facility] Comment on above: Performed By: #### C DP, BMP #### [facility] [address] [place], [place] [id number] Line Lead: Mike Forde MD Eosinophils/100 WBC (Bld) 0 % Normal 0-5 [facility] Comment on above: Performed By: #### C DP, BMP #### [facility] [address] [place] [address] Line Lead: Mike Forde MD Erythrocyte distribution width (RBC) [Ratio] 11.8 % Low 12.1-15.2 [facility] Comment on above: Performed By: #### C DP, BMP #### [facility] [address] [place], [place] 74808[address] Line Lead: Mike Forde MD Hematocrit (Bld) [Volume fraction] 43.4 % Normal 36.0-46.0 [facility] Comment on above: Performed By: #### C DP, BMP #### [facility] [address] [place], [place] 1095590 Line Lead: Mike Forde MD Hemoglobin (Bld) [Mass/Vol] 15.5 g/dL Normal 12.0-16.0 [facility] Comment on above: Performed By: #### C DP, BMP #### [facility] [address] [place], [place] [id number] Line Lead: Mike Forde MD Immature granulocytes/100 WBC (Bld) 0 % Normal 0-5 [facility] Comment on above: Performed By: #### C DP, BMP #### [facility] [address] [place], [place] 0783990 Line Lead: Mike Forde MD Lymphocytes (Bld) [#/Vol] 2.33 10*3/uL Normal 1.00-4.80 [facility] Comment on above: Performed By: #### C DP, BMP #### [facility] [address] [place] [address] Line Lead: Mike Forde MD Lymphocytes/100 WBC (Bld) 22 % Normal 15-40 [facility] Comment on above: Performed By: #### C DP, BMP #### [facility] [address] [place] [phone] Line Lead: Mike Forde MD MCH (RBC) [Entitic mass] 28.9 pg Normal 26.0-34.0 [facility] Comment on above: Performed By: #### C DP, BMP #### [facility] [address] [place] [phone] Line Lead: Mike Forde MD MCHC (RBC) [Mass/Vol] 35.7 g/dL Normal 31.0-37.0 [facility] Comment on above: Performed By: #### C DP, BMP #### [facility] [address] [place] [address] Line Lead: Mike Forde MD MCV (RBC) [Entitic vol] 80.8 fL Normal 80.0-100.0 [facility] Comment on above: Performed By: #### C DP, BMP #### [facility] [address] [place] [address] Line Lead: Mike Forde MD Monocytes (Bld) [#/Vol] 0.88 10*3/uL Normal 0.00-1.00 [facility] Comment on above: Performed By: #### C DP, BMP #### [facility] [address] [place] [address] Line Lead: Mike Forde MD Monocytes/100 WBC (Bld) 8 % Normal 4-8 [facility] Comment on above: Performed By: #### C DP, BMP #### [facility] [address] [place], [place] [phone] ([phone] Line Lead: Mike Forde MD Neutrophil (Seg) 70 % Normal 47-75 [facility] Comment on above: Performed By: #### C DP, BMP #### [facility] [address] [place], [place] [phone] ([phone] Line Lead: Mike Forde MD Platelet mean volume (Bld) [Entitic vol] 10.5 fL Normal 6.0-12.0 [facility] Comment on above: Performed By: #### C DP, BMP #### [facility] [address] [place], [place] [phone] ([phone] Line Lead: Mike Forde MD Platelets (Bld) [#/Vol] 279 10*3/uL Normal 140-450 [facility] Comment on above: Performed By: #### C DP, BMP #### [facility] [address] [place], [place] [phone] ([phone] Line Lead: Mike Forde MD RBC (Bld) [#/Vol] 5.37 10*6/uL High 4.00-5.20 [facility] Comment on above: Performed By: #### C DP, BMP #### [facility] [address] [place], [place] [phone] ([phone] Line Lead: Mike Forde MD WBC (Bld) [#/Vol] 10.8 10*3/uL Normal 3.5-11.0 [facility] Comment on above: Performed By: #### C DP, BMP #### [facility] [address] [place], [place] [phone] ([phone] Line Lead: Mike Forde MD CBC with Auto Differentialon 12-13-2021 Absolute Eos # 0.00 [facility] Absolute Lymph # 1.90 [facility] Absolute [place] # 0.50 [facility] Basophils (Bld) [#/Vol] 0.00 10*3/uL [facility] Basophils/100 WBC (Bld) 0 % 0 - 2 % [facility] Differential Type YES [facility] Eosinophils/100 WBC (Bld) 0 % 0 - [...] - 37 g/dL [facility] MCV (RBC) [Entitic vol] 86.2 fL 80 - 100 fL [facility] Monocytes/100 WBC (Bld) 5 % 4 - 8 % [facility] Platelet distribution width (Bld) [Ratio] 12.3 % 12.1 - 15.2 % [facility] Platelets (Bld) [#/Vol] 265 10*3/uL [facility] RBC (Bld) [#/Vol] 5.05 10*6/uL 4.0 - 5.2 m/uL [facility] Segmented neutrophils/100 WBC (Bld) 74 % 47 - 75 % [facility] Segs Absolute 6.60 [facility] WBC (Bld) [#/Vol] 9.1 10*3/uL [facility] Comprehensive Metabolic Pane davi 12-13-2021 Albumin [Mass/Vol] 4.3 g/dL 3.5 - 5.2 g/dL [facility] N [facility] ALP (Bld) [Catalytic activity/Vol] 77 U/L [...] mmol/L 20 - 31 mmol/L [facility] Creatinine [Mass/Vol] 0.77 mg/dL 0.50 - [...] body mass. Additional eGFR calculator available at: http://www.[employer].ipsy/multiple_crcl_2011.htm Glucose [Mass/Vol] 93 mg/dL 70 - 99 mg/dL [facility] Potassium [Moles/Vol] 4.2 mmol/L 3.7 - 5.3 mmol /L [facility] Sodium [Moles/Vol] 138 mmol/L 135 - 144 mmol/L [facility] Urea nitrogen (BldV) [Mass/Vol] 9 mg/dL 6 - 20 mg/dL [facility] Urea nitrogen/Creatinine (Bld) [Mass ratio] 12 [facility] Encounters Encounter Date Encounter Type [...] 05-30-2023 End: 05-31-2023 [facility] Start: 04-16-2023 End: 04-17-2023 [facility] Start: 12-13-2021 End: 12-13-2021 Subsequent hospital visit by physician Arpit Leblanc CNP Work Phone: [facility] Comment on above: Blood in stool, zeina k; Gastroesophageal reflux disease without esophagitis; Diarrhea, unspecified type; Abdominal cramping Start: 03-01-2019 End: 03-01-2019 Subsequent hospital visit by physician Arpit Parekh [facility] Comment on above: Need for varicella v accine Procedures Date Procedure Procedure Detail Performing Clinician Start: 12-13-2021 Comprehensive metabo lic panel Arpit Parekh APRN - PROFESSIONAL SERVICES CONSULTANT Work Phone: Plan of Treatment Date Care [...] 01/11/2022 Office Visit Family Medicine Arpit Parekh, PLANNING DIVISION SUPERINTENDENT - PROFESSIONAL SERVICES CONSULTANT [address] [phone] [facility] [place] Start: 2019 Screening for malign ant neoplasm of cervix Pap smear [facility] Start: 03-10-2019 Influenza vaccination Flu vaccine (# 1) [place], [place] Start: 2017 DTaP/Tdap/Td vaccine (1 - Tdap) DTaP/Tdap/Td vaccine (1 - Tdap) [place], [place] Start: 2016 Hepatitis C screening Hepatitis C sc reen [facility] Start: 2014 Chlamydia screen Chlamydia screen [place], [place] Start: 2014 Screening for Chlamy nathalie trachomatis Chlamydia screen [facility] Start: 2013 HIV screen HIV screen [place], [place] Start: 2013 HIV screening HIV screen [facility] Start: 2013 HPV vaccine (1 - Fem dana 3-dose series) HPV vaccine (1 - Female 3-dose series) [place], [place] Start: 2011 Varicella Vaccine (1 of 2 - 13+ 2-dose series) Varicella Vaccine (1 of 2 - 13+ 2-dose series) [place], [place] Start: 2009 HPV vaccine (1 - [...] gustavo 1 Occurrences starting 12/13/2021 until 12/13/2021 [employer] Phone: Comment on above: 1 Occurrences starti ng 12/13/2021 until 12/13/2021 End: 12-13-2021 Celiac Disease Panel Celiac Disease Panel Lab Routine Diarrhea, unspecified type Abdominal cramping 1 Occurrences starting 12/13/2021 until 12/13/2021 [employer] Phone: Comment on above: 1 Occurrences starti ng 12/13/2021 until 12/13/2021 End: 12-13-2021 Celiac Plus [employer] Phone: Comment on above: Once for 1 Occurrenc es starting 12/13/2021 until 12/13/2021 End: 12-13-2021 Comprehensive metabolic 2000 panel - Serum or Plasma Comprehensive Metabolic Panel Lab Routine Blood in stool, gustavo Gastroesophageal reflux disease without esophagitis 1 Occurrences starting 12/13/2021 until 12/13/2021 [employer] Phone: Comment on above: 1 Occurrences starti ng 12/13/2021 until 12/13/2021 End: 03-01-2019 Varicella Zoster Antibody, IgG Varicella Zoster Antibody, IgG Lab Routine Need for varicella vaccine 1 Occurrences starting 03/01/2019 until 03/01/2019 [place] Comment on above: 1 Occurrences starti ng 03/01/2019 until 03/01/2019 Varicella Zoster Antibody, IgG Varicella Zoster Antibody, IgG Lab Routine Need for varicella vaccine 03/01/2019 11:50 AM EDT [place], [place] Immunizations Immunization Date Immunization Notes Care Provider Rohit mcnally 09-18-2021 COVID-19, Pfizer Pur ple top, DILUTE for use, 12+ yrs, 30mcg/0.3mL dose Arpit Parekh PLANNING DIVISION SUPERINTENDENT - PROFESSIONAL SERVICES CONSULTANT Work Phone: [employer] Phone: 11-27-2019 Hepatitis B vaccine (recombinant), CpG adjuvanted Arpit Parekh [facility] Work Phone: [facility] Work Phone: 11-27-2019 tetanus toxoid, redu gordon diphtheria toxoid, and acellular pertussis vaccine, adsorbed Arpit Parekh [facility] Work Phone: [facility] Work Phone: 03-27-2019 hepatitis B vaccine, adult dosage Arpit Parekh [facility] Work Phone: [facility] Work Phone: 03-27-2019 measles, mumps and rubella virus vaccine Arpit Parekh [facility] Work Phone: [facility] [employer] [facility] Work Phone: 03-03-2019 measles, mumps and rubella virus vaccine Arpit Parekh [facility] Work Phone: [facility] Work Phone: 02-25-2019 hepatitis B vaccine, adult dosage Arpit Parekh [facility] Payers Date Payer Category Payer Unknown [id number] 2022 Private Health Insurance [id number] 2018 Unknown BCBS [place] - [place] P PO xxxxxxxxxxxx 2018-Present [address] [place] [address] xxxxxxxxxxxx [id number] 2018 Unknown [id number] 1998 Unknown [id number] .174 1998 Unknown [id number] [id number] .174 1998 Unknown [id number] [id number] .1259 1998 Unknown [id number] [id number] .9 1998 Unknown [id number] [id number] .9 1998 Unknown [id number] [id number] .9 1998 Unknown [id number] [id number] .1259 1998 Unknown [id number] [id number] .9 1998 Unknown [id number] [id number] .9 1998 Unknown [id number] [id number] .9 1998 Unknown [id number] [id number] .9 1998 Unknown [id number] .1259 Social History Date Type Detail Facility Start: 04-25-2016 End: 11-26-2018 Tobacco smoking status NHIS Never smoker [place] Start: 11-26-2018 Alcohol intake No [place], [place] Start: 1998 Sex Assigned At Not on file [place] Start: 04-25-2016 Tobacco use and exposure Smokeless tobacco non-user [employer] Phone: Start: 12-13-2021 Alcohol intake 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) [employer] Phone: Start: 12-13-2021 History SDOH Financial 5 [employer] Phone: Start: 12-13-2021 History 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 1 [facility] [employer] Work Phone: Evaluation note Note Date & Type Note Facility Evaluation note Diagnosis Blood in stool, gustavo Blood in stool Gastroesophageal reflux disease without esophagitis Esophageal reflux Diarrhea, unspecified type Abdominal cramping Abdominal pain, unspecified site documented in this encounter [facility] [employer] Work Phone: Assessments Diagnosis Need for varicella vaccine Need for prophylactic vaccination and inoculation against varicella Advance Directives No Advanced Directives Records FoundDocuments on File Type Date Recorded Patient Chemistry Department Chair Expl anation Advance Directives and Living Will Power of Public Relations Counselor Documents on File Type Date Recorded Patient Chemistry Department Chair Expl anation ACP-Advance Directive ACP-Power of Public Relations Counselor Summary Purpose Family History No Family History Records FoundNo Family History Records Found Additional Source Comments Care Teams (unrecognized sec tion and content) Topographical Field Assistant Relationship Specialty Start Date End Date Arpit Parekh, PLANNING DIVISION SUPERINTENDENT - PROFESSIONAL SERVICES CONSULTANT [address] [place] [id number] PCP - General Nurse Practitioner 11/23/16 INFORMATION SOURCE (unrecogn ized section and content) DATE CREATED AUTHOR 06/02/2023 Lorriezahida QuirogaXumoriah allen DATE CREATED AUTHOR AUTHOR'S CHARLIE ATJUDD 11/14/2023 [facility] FOR RECORDS PERTAINING TO PATIENTS [...] BE BASED ON THE PRIMARY CLINICAL RECORDS. [employer] provides no warranty or guarantee of the accuracy or completeness of information in this document.
== END 2023-11-18 16:50 | disposition home or self-care (01) | DRG 807 ==
PROVIDERS: Admitting Provider Obstetrics & Gynecology; Visit Provider Midwife
DX: O69.81X0 Labor and delivery complicated by cord around neck, without compression, not applicable or unspecified (principal); Z37.0 Single live birth; O70.1 Second degree perineal laceration during delivery; Z3A.39 39 weeks gestation of pregnancy; Z87.440 Personal history of urinary (tract) infections; O99.284 Endocrine, nutritional and metabolic diseases complicating childbirth; E03.9 Hypothyroidism, unspecified
CPT/HCPCS: 36415; 80307; 85025; 85027; 86850; 86900; 86901; 96374; 96375; 96376

== ENCOUNTER 2023-11-21 08:30 | Outpatient (OUT) | payer BC, OTHER, SELFPAY ==
--- OUTSIDE RECORDS SUMMARY | 2023-11-21 08:46 | XMS_ITS | CCD ---
Author Organization [facility] Care Team Providers Care Power Manager Name Role Phone Arpit Parekh Primary [...] 05-30-2023 Abs. Basophil 0.01 k/uL Normal 0.00-0.20 [facility] Comment on above: Performed By: #### C DP, CP #### [facility] [address] [place] [address] Toy Mechanic: Mike Forde MD Abs.Imm.Granulocyte 0.01 k/uL Normal 0.00-0.30 [facility] Comment on above: Performed By: #### C DP, CP #### [facility] [address] [place] [phone] Toy Mechanic: Mike Forde MD Abs.Neutrophil (Seg) 6.24 k/uL Normal 2.5-7.0 [facility] Comment on above: Performed By: #### C DP, CP #### [facility] [address] [place] [address] Toy Mechanic: Mike Forde MD Basophils/100 WBC (Bld) 0 % Normal 0-2 [facility] Comment on above: Performed By: #### C DP, CP #### [facility] [address] [phone] Toy Mechanic: Mike Forde MD Eosinophils (Bld) [#/Vol] 0.00 10*3/uL Normal 0.00-0.40 [facility] Comment on above: Performed By: #### C DP, CP #### [facility] [address] [place] [address] Toy Mechanic: Mkie Forde MD Eosinophils/100 WBC (Bld) 0 % Normal 0-5 [facility] Comment on above: Performed By: #### C DP, CP #### [facility] [address] [place], [place] [phone] Toy Mechanic: Mike Forde MD Erythrocyte distribution width (RBC) [Ratio] 11.9 % Low 12.1-15.2 [facility] Comment on above: Performed By: #### C DP, CP #### [facility] [address] [place], [place] [phone] Toy Mechanic: Mike Forde MD Hematocrit (Bld) [Volume fraction] 41.1 % Normal 36.0-46.0 [facility] Comment on above: Performed By: #### C DP, CP #### [facility] [address] [place], [place] [phone] Toy Mechanic: Mike Forde MD Hemoglobin (Bld) [Mass/Vol] 14.5 g/dL Normal 12.0-16.0 [facility] Comment on above: Performed By: #### C DP, CP #### [facility] [address] [place], [place] [phone] Toy Mechanic: Mike Forde MD Immature granulocytes/100 WBC (Bld) 0 % Normal 0-5 [facility] Comment on above: Performed By: #### C DP, CP #### [facility] [address] [place] [address] Toy Mechanic: Mike Forde MD Lymphocytes (Bld) [#/Vol] 1.74 10*3/uL Normal 1.00-4.80 [facility] Comment on above: Performed By: #### C DP, CP #### [facility] [address] [place], [place] [phone] Toy Mechanic: Mike Forde MD Lymphocytes/100 WBC (Bld) 21 % Normal 15-40 [facility] Comment on above: Performed By: #### C DP, CP #### [facility] [address] [place] [address] Toy Mechanic: Mike Forde MD MCH (RBC) [Entitic mass] 29.2 pg Normal 26.0-34.0 [facility] Comment on above: Performed By: #### C DP, CP #### [facility] [address] [place] [phone] Toy Mechanic: Mike Forde MD MCHC (RBC) [Mass/Vol] 35.3 g/dL Normal 31.0-37.0 [facility] Comment on above: Performed By: #### C DP, CP #### [facility] [address] [place] [phone] Toy Mechanic: Mike Forde MD MCV (RBC) [Entitic vol] 82.9 fL Normal 80.0-100.0 [facility] Comment on above: Performed By: #### C DP, CP #### [facility] [address] [place] [address] Toy Mechanic: Mike Forde MD Monocytes (Bld) [#/Vol] 0.50 10*3/uL Normal 0.00-1.00 [facility] Comment on above: Performed By: #### C DP, CP #### [facility] [address] [phone] Toy Mechanic: Mike Forde MD Monocytes/100 WBC (Bld) 6 % Normal 4-8 [facility] Comment on above: Performed By: #### C DP, CP #### [facility] [address] [place] [address] Toy Mechanic: Mike Forde MD Neutrophil (Seg) 73 % Normal 47-[address] [facility] Comment on above: Performed By: #### C DP, CP #### [facility] [address] [place], [place] [phone] Toy Mechanic: Mike Forde MD Platelet mean volume (Bld) [Entitic vol] 10.4 fL Normal 6.0-12.0 [facility] Comment on above: Performed By: #### C DP, CP #### [facility] [address] [place] [address] Toy Mechanic: Mike Forde MD Platelets (Bld) [#/Vol] 227 10*3/uL Normal 140-450 [facility] Comment on above: Performed By: #### C DP, CP #### [facility] [address] [place] [phone] Toy Mechanic: Mike Forde MD RBC (Bld) [#/Vol] 4.96 10*6/uL Normal 4.00-5.20 [facility] Comment on above: Performed By: #### C DP, CP #### [facility] [address] [place], [place] [phone] Toy Mechanic: Mike Forde MD WBC (Bld) [#/Vol] 8.5 10*3/uL Normal 3.5-11.0 [facility] Comment on above: Performed By: #### C DP, CP #### [facility] [address] [place] [address] Toy Mechanic: Mike Forde MD Comp Metabolic Profon 2022 Albumin [Mass/Vol] 4.2 g/dL Normal 3.5-5.2 [facility] Comment on above: Performed By: #### C DP, CP #### [facility] [address] [place] [address] Toy Mechanic: Mike Forde MD Alkaline Phos 48 U/L Normal 35-104 [facility] Comment on above: Performed By: #### C DP, CP #### [facility] [address] [place], [place] [id number] Toy Mechanic: Mike Forde MD ALT [Catalytic activity/Vol] 12 U/L Normal 5-33 [facility] Comment on above: Performed By: #### C DP, CP #### [facility] [address] [place], [place] [phone] Toy Mechanic: Mike Forde MD Anion gap [Moles/Vol] 15 mmol/L Normal 9-17 [facility] Comment on above: Performed By: #### C DP, CP #### [facility] [address] [place], [place] [phone] Toy Mechanic: Mike Forde MD AST [Catalytic activity/Vol] 11 U/L Normal <32 [facility] Comment on above: Performed By: #### C DP, CP #### [facility] [address] [place], [place] [phone] Toy Mechanic: Mike Forde MD Bilirubin [Mass/Vol] mg/dL Low 0.3-1.2 [facility] Comment on above: Performed By: #### C DP, CP #### [facility] [address] [place], [place] [phone] Toy Mechanic: Mike Forde MD BUN/CRE Ratio 14 Normal 9-20 [facility] Comment on above: Performed By: #### C DP, CP #### [facility] [address] [place], [place] [phone] Toy Mechanic: Mike Forde MD Calcium [Mass/Vol] 9.7 mg/dL Normal 8.6-10.4 [facility] Comment on above: Performed By: #### C DP, CP #### [facility] [address] [place], [place] [phone] Toy Mechanic: Mike Forde MD Chloride [Moles/Vol] 101 mmol/L Normal 98-107 [facility] Comment on above: Performed By: #### C DP, CP #### [facility] [address] [place], [place] [phone] Toy Mechanic: Mike Forde MD CO2 [Moles/Vol] 22 mmol/L Normal 20-31 [facility] Comment on above: Performed By: #### C DP, CP #### [facility] [address] [place] [address] Toy Mechanic: Mike Forde MD Creatinine [Mass/Vol] 0.5 mg/dL Normal 0.5-0.9 [facility] Comment on above: Performed By: #### C DP, CP #### [facility] [address] [place] [address] Toy Mechanic: Mike Forde MD GFR/1.73 sq M.predicted among non-blacks MDRD (S/P/Bld) [Vol rate/Area] mL/min/{1.73_m2} Normal >60 [facility] Comment on above: Result Comment: These [...] Performed By: #### C DP, CP #### [facility] [address] [place] [address] Toy Mechanic: Mike Forde MD Glucose [Mass/Vol] 90 mg/dL Normal 70-99 [facility] Comment on above: Performed By: #### C DP, CP #### [facility] [address] [place], [place] [phone] Toy Mechanic: Mike Forde MD Potassium [Moles/Vol] 3.5 mmol/L Low 3.7-5.3 [facility] Comment on above: Performed By: #### C DP, CP #### [facility] [address] [place] [address] Toy Mechanic: Mike Forde MD Protein [Mass/Vol] 7.5 g/dL Normal 6.4-8.3 [facility] Comment on above: Performed By: #### C DP, CP #### [facility] [address] [place], [place] [phone] Toy Mechanic: Mike Forde MD Sodium [Moles/Vol] 138 mmol/L Normal 135-144 [facility] Comment on above: Performed By: #### C DP, CP #### [facility] [address] [place] [address] Toy Mechanic: Mike Forde MD Urea nitrogen [Mass/Vol] 7 mg/dL Normal 6-20 [facility] Comment on above: Performed By: #### C DP, CP #### [facility] [address] [place] [address] Toy Mechanic: Mike Forde MD Basic Metabolic Profon 04-16 Anion gap [Moles/Vol] 15 mmol/L Normal - [facility] Comment on above: Performed By: #### C DP, BMP #### [facility] [address] [place] [address] Toy Mechanic: Mike Forde MD BUN/CRE Ratio 10 Normal -20 [facility] Comment on above: Performed By: #### C DP, BMP #### [facility] [address] [place] [address] Toy Mechanic: Mike Forde MD Calcium [Mass/Vol] 10.2 mg/dL Normal 8.6-10.4 [facility] Comment on above: Performed By: #### C DP, BMP #### [facility] [address] [place], [place] [phone] Toy Mechanic: Mike Forde MD Chloride [Moles/Vol] 98 mmol/L Normal 98-107 [facility] Comment on above: Performed By: #### C DP, BMP #### [facility] [address] [place] [address] Toy Mechanic: Mike Forde MD CO2 [Moles/Vol] 22 mmol/L Normal 20-31 [facility] Comment on above: Performed By: #### C DP, BMP #### [facility] [address] [place] [address] Toy Mechanic: Mike Forde MD Creatinine [Mass/Vol] 0.7 mg/dL Normal 0.5-0.9 [facility] Comment on above: Performed By: #### C DP, BMP #### [facility] [address] [place], [place] [address] Toy Mechanic: Mike Forde MD GFR/1.73 sq M.predicted among non-blacks MDRD (S/P/Bld) [Vol rate/Area] mL/min/{1.73_m2} Normal >60 [facility] Comment on above: Result Comment: These [...] Performed By: #### C DP, BMP #### [facility] [address] [place], [place] [phone] Toy Mechanic: Mike Forde MD Glucose [Mass/Vol] 113 mg/dL High 70-99 [facility] Comment on above: Performed By: #### C DP, BMP #### [facility] [address] [place] [address] Toy Mechanic: Mike Forde MD Potassium [Moles/Vol] 3.4 mmol/L Low 3.7-5.3 [facility] Comment on above: Performed By: #### C DP, BMP #### [facility] [address] [place] [phone] Toy Mechanic: Mike Forde MD Sodium [Moles/Vol] 135 mmol/L Normal 135-144 [facility] Comment on above: Performed By: #### C DP, BMP #### [facility] [address] [place] [phone] Toy Mechanic: Mike Forde MD Urea nitrogen [Mass/Vol] 7 mg/dL Normal 6-20 [facility] Comment on above: Performed By: #### C DP, BMP #### [facility] [address] [place] [address] Toy Mechanic: Mike Forde MD CBC with Diffon 04-16-2023 Abs. Basophil 0.03 k/uL Normal 0.00-0.20 [facility] Comment on above: Performed By: #### C DP, BMP #### [facility] [address] [place] [phone] Toy Mechanic: Mike Forde MD Abs.Imm.Granulocyte 0.02 k/uL Normal 0.00-0.30 [facility] Comment on above: Performed By: #### C DP, BMP #### [facility] [address] [place] [address] Toy Mechanic: Mike Forde MD Abs.Neutrophil (Seg) 7.51 k/uL High 2.5-7.0 [facility] Comment on above: Performed By: #### C DP, BMP #### [facility] [address] [place] [phone] Toy Mechanic: Mike Forde MD Basophils/100 WBC (Bld) 0 % Normal 0-2 [facility] Comment on above: Performed By: #### C DP, BMP #### [facility] [address] [place], [place] [phone] Toy Mechanic: Mike Forde MD Eosinophils (Bld) [#/Vol] 0.03 10*3/uL Normal 0.00-0.40 [facility] Comment on above: Performed By: #### C DP, BMP #### [facility] [address] [place], [place] [phone] Toy Mechanic: Mike Forde MD Eosinophils/100 WBC (Bld) 0 % Normal 0-5 [facility] Comment on above: Performed By: #### C DP, BMP #### [facility] [address] [place] [address] Toy Mechanic: Mike Forde MD Erythrocyte distribution width (RBC) [Ratio] 11.8 % Low 12.1-15.2 [facility] Comment on above: Performed By: #### C DP, BMP #### [facility] [address] [place], [place] [phone] Toy Mechanic: Mike Forde MD Hematocrit (Bld) [Volume fraction] 43.4 % Normal 36.0-46.0 [facility] Comment on above: Performed By: #### C DP, BMP #### [facility] [address] [place], [place] [phone] Toy Mechanic: Mike Forde MD Hemoglobin (Bld) [Mass/Vol] 15.5 g/dL Normal 12.0-16.0 [facility] Comment on above: Performed By: #### C DP, BMP #### [facility] [address] [place], [place] [phone] Toy Mechanic: Mike Forde MD Immature granulocytes/100 WBC (Bld) 0 % Normal 0-5 [facility] Comment on above: Performed By: #### C DP, BMP #### [facility] [address] [place], [place] [phone] Toy Mechanic: Mike Forde MD Lymphocytes (Bld) [#/Vol] 2.33 10*3/uL Normal 1.00-4.80 [facility] Comment on above: Performed By: #### C DP, BMP #### [facility] [address] [place] [address] Toy Mechanic: Mike Forde MD Lymphocytes/100 WBC (Bld) 22 % Normal 15-40 [facility] Comment on above: Performed By: #### C DP, BMP #### [facility] [address] [place] [phone] Toy Mechanic: Mike Forde MD MCH (RBC) [Entitic mass] 28.9 pg Normal 26.0-34.0 [facility] Comment on above: Performed By: #### C DP, BMP #### [facility] [address] [place] [phone] Toy Mechanic: Mike Forde MD MCHC (RBC) [Mass/Vol] 35.7 g/dL Normal 31.0-37.0 [facility] Comment on above: Performed By: #### C DP, BMP #### [facility] [address] [place] [address] Toy Mechanic: Mike Forde MD MCV (RBC) [Entitic vol] 80.8 fL Normal 80.0-100.0 [facility] Comment on above: Performed By: #### C DP, BMP #### [facility] [address] [place] [address] Toy Mechanic: Mike Forde MD Monocytes (Bld) [#/Vol] 0.88 10*3/uL Normal 0.00-1.00 [facility] Comment on above: Performed By: #### C DP, BMP #### [facility] [address] [place] [address] Toy Mechanic: Mike Forde MD Monocytes/100 WBC (Bld) 8 % Normal 4-8 [facility] Comment on above: Performed By: #### C DP, BMP #### [facility] [address] [place], [place] [phone] Toy Mechanic: Mike Forde MD Neutrophil (Seg) 70 % Normal 47-[address] [facility] Comment on above: Performed By: #### C DP, BMP #### [facility] [address] [place], [place] [phone] Toy Mechanic: Mike Forde MD Platelet mean volume (Bld) [Entitic vol] 10.5 fL Normal 6.0-12.0 [facility] Comment on above: Performed By: #### C DP, BMP #### [facility] [address] [place], [place] [phone] Toy Mechanic: Mike Forde MD Platelets (Bld) [#/Vol] 279 10*3/uL Normal 140-450 [facility] Comment on above: Performed By: #### C DP, BMP #### [facility] [address] [place], [place] [phone] Toy Mechanic: Mike Forde MD RBC (Bld) [#/Vol] 5.37 10*6/uL High 4.00-5.20 [facility] Comment on above: Performed By: #### C DP, BMP #### [facility] [address] [place], [place] [phone] Toy Mechanic: Mike Forde MD WBC (Bld) [#/Vol] 10.8 10*3/uL Normal 3.5-11.0 [facility] Comment on above: Performed By: #### C DP, BMP #### [facility] [address] [place], [place] [phone] Toy Mechanic: Mike Forde MD CBC with Auto Differentialon 12-13-2021 Absolute Eos # 0.00 [facility] Absolute Lymph # 1.90 [facility] Absolute [place] # 0.50 [facility] Basophils (Bld) [#/Vol] 0.00 10*3/uL [facility] Basophils/100 WBC (Bld) 0 % 0 - 2 % [facility] Differential Type YES [facility] Eosinophils/100 WBC (Bld) 0 % 0 - 5 % [facility] Hematocrit (Bld) [Volume fraction] 43.5 % 36 - 46 % [facility] Hemoglobin (Bld) [Mass/Vol] 14.6 g/dL 12.0 - 16.0 g/dL [facility] Lymphocytes/100 WBC (Bld) 21 % 15 - 40 % [facility] MCH (RBC) [Entitic mass] 28.9 pg 26 - 34 pg [facility] MCHC (RBC) [Mass/Vol] 33.5 g/dL 31 - 37 g/dL [facility] MCV (RBC) [Entitic vol] 86.2 fL 80 - 100 fL [facility] Monocytes/100 WBC (Bld) 5 % 4 - 8 % [facility] Platelet distribution width (Bld) [Ratio] 12.3 % 12.1 - 15.2 % [facility] Platelets (Bld) [#/Vol] 265 10*3/uL [facility] RBC (Bld) [#/Vol] 5.05 10*6/uL 4.0 - 5.2 m/uL [facility] Segmented neutrophils/100 WBC (Bld) 74 % 47 - 75 % [facility] Segs Absolute 6.60 [facility] WBC (Bld) [#/Vol] 9.1 10*3/uL [facility] Comprehensive Metabolic Pane davi 12-13-2021 Albumin [Mass/Vol] 4.3 g/dL 3.5 - 5.2 g/dL YASMIN N [facility] ALP (Bld) [Catalytic activity/Vol] 77 U/L 35 - 104 U/L [facility] ALT [Catalytic activity/Vol] 23 U/L 5 - 33 U/L [facility] Anion gap [Moles/Vol] 11 mmol/L 9 - 17 mmol/L [facility] AST [Catalytic activity/Vol] 15 U/L <32 [facility] Bilirubin [Mass/Vol] 0.51 mg/dL 0.30 - 1.20 mg/dL [facility] Calcium [Mass/Vol] 9.6 mg/dL 8.6 - 10.4 mg/dL [facility] Chloride [Moles/Vol] 102 mmol/L 98 - 107 mmol/L [facility] CO2 [Moles/Vol] 25 mmol/L 20 - 31 mmol/L [facility] Creatinine [Mass/Vol] 0.77 mg/dL 0.50 - 0.90 mg/dL [facility] Free PSA/Total PSA [Mass fraction] 7.4 g/dL 6.4 - 8.3 g/dL [facility] GFR >60 >60 mL/min [facility] GFR Non- >60 >60 mL/min [facility] GFR/1.73 sq M.predicted MDRD (S/P/Bld) [Vol rate/Area] [facility] Comment on above: Average GFR for 20-2 9 years old: 116 mL/min/1.73sq m Chronic Kidney Disease: <60 mL/min/1.73sq m Kidney failure: <15 mL/min/1.73sq m eGFR calculated using average adult body mass. Additional eGFR calculator available at: http://www.Bimici.Razient/multiple_crcl_2011.htm Glucose [Mass/Vol] 93 mg/dL 70 - 99 mg/dL [facility] Potassium [Moles/Vol] 4.2 mmol/L 3.7 - 5.3 mmol /L [facility] Sodium [Moles/Vol] 138 mmol/L 135 - 144 mmol/L [facility] Urea nitrogen (BldV) [Mass/Vol] 9 mg/dL 6 - 20 mg/dL [facility] Urea nitrogen/Creatinine (Bld) [Mass ratio] 12 [place] [...] 05-30-2023 End: 05-31-2023 [facility] Start: 04-16-2023 End: 04-17-2023 [facility] Start: 12-13-2021 End: 12-13-2021 Subsequent hospital visit by physician Arpit Leblanc CNP Work Phone: [employer] [facility] Comment on above: Blood in stool, zeina k; Gastroesophageal reflux disease without esophagitis; Diarrhea, unspecified type; Abdominal cramping Start: 03-01-2019 End: 03-01-2019 Subsequent hospital visit by physician Arpit Parekh [facility] Comment on above: Need for varicella v accine Procedures Date Procedure Procedure Detail Performing Clinician Start: 12-13-2021 Comprehensive metabo lic panel Arpit Parekh APRN - DESK REPORTER Work Phone: Plan of Treatment Date Care Activity Detail Author Start: 11-26-2029 DTaP/Tdap/Td vaccine (3 - Td or Tdap) DTaP/Tdap/Td vaccine (3 - Td or Tdap) [facility] Start: 12-13-2022 Depression Screen Depression Screen [facility] Start: 03-14-2022 COVID-19 Vaccine (3 - Booster for Pfizer series) COVID-19 Vaccine (3 - Booster for Pfizer series) [facility] Start: 03-10-2022 Influenza vaccination Flu vaccine (S angelo Ended) [facility] Start: 01-11-2022 End: 01-11-2022 Patient encounter procedure 01/11/2022 Office Visit Family Medicine Arpit Parekh, HIDE WASHER - DESK REPORTER [address] [phone] [facility] Start: 2019 Screening for malign ant neoplasm of cervix Pap smear [facility] Start: 03-10-2019 Influenza vaccination Flu vaccine (# 1) [place], [place] Start: 2017 DTaP/Tdap/Td vaccine (1 - Tdap) DTaP/Tdap/Td vaccine (1 - Tdap) [place] Start: 2016 Hepatitis C screening Hepatitis C sc reen [facility] Start: 2014 Chlamydia screen Chlamydia screen [place], [place] Start: 2014 Screening for Chlamy nathalie trachomatis Chlamydia screen [facility] Start: 2013 HIV screen HIV screen [place], [place] Start: 2013 HIV screening HIV screen [facility] Start: 2013 HPV vaccine (1 - Fem dana 3-dose series) HPV vaccine (1 - Female 3-dose series) [place], [place] Start: 2011 Varicella Vaccine (1 of 2 - 13+ 2-dose series) Varicella Vaccine (1 of 2 - 13+ 2-dose series) [place], [place] Start: 2009 HPV vaccine (1 - 2-d ose series) HPV vaccine (1 - 2-dose series) [facility] Start: 1999 Varicella vaccine (1 of 2 - 2-dose childhood series) Varicella vaccine (1 of 2 - 2-dose childhood series) [facility] End: 12-13-2021 CBC W Auto Differential panel - Blood CBC with Auto Differential Lab Routine Diarrhea, unspecified type Blood in stool, gustavo 1 Occurrences starting 12/13/2021 until 12/13/2021 [employer] Phone: Comment on above: 1 Occurrences starti ng 12/13/2021 until 12/13/2021 End: 12-13-2021 Celiac Disease Panel Celiac Disease Panel Lab Routine Diarrhea, unspecified type Abdominal cramping 1 Occurrences starting 12/13/2021 until 12/13/2021 [employer] Phone: Comment on above: 1 Occurrences starti ng 12/13/2021 until 12/13/2021 End: 12-13-2021 Celiac Plus [employer] Phone: Comment on above: Once for 1 Occurrenc es starting 12/13/2021 until 12/13/2021 End: 12-13-2021 Comprehensive metabolic 2000 panel - Serum or Plasma Comprehensive Metabolic Panel Lab Routine Blood in stool, gustavo Gastroesophageal reflux disease without esophagitis 1 Occurrences starting 12/13/2021 until 12/13/2021 [employer] Phone: Comment on above: 1 Occurrences starti ng 12/13/2021 until 12/13/2021 End: 03-01-2019 Varicella Zoster Antibody, IgG Varicella Zoster Antibody, IgG Lab Routine Need for varicella vaccine 1 Occurrences starting 03/01/2019 until 03/01/2019 [place], [place] Comment on above: 1 Occurrences starti ng 03/01/2019 until 03/01/2019 Varicella Zoster Antibody, IgG Varicella Zoster Antibody, IgG Lab Routine Need for varicella vaccine 03/01/2019 11:50 AM EDT [place], [place] Immunizations Immunization Date Immunization Notes Care Provider Rohit mcnally 09-18-2021 COVID-19, Pfizer Pur ple top, DILUTE for use, 12+ yrs, 30mcg/0.3mL dose Arpit Parekh HIDE WASHER - DESK REPORTER Work Phone: [employer] Phone: 11-27-2019 Hepatitis B vaccine (recombinant), CpG adjuvanted Arpit Parekh [facility] Work Phone: [facility] Work Phone: 11-27-2019 tetanus toxoid, redu gordon diphtheria toxoid, and acellular pertussis vaccine, adsorbed Arpit Parekh [facility] Work Phone: [facility] Work Phone: 03-27-2019 hepatitis B vaccine, adult dosage Arpit Parekh [facility] Work Phone: [facility] Work Phone: 03-27-2019 measles, mumps and rubella virus vaccine Arpit Parekh [facility] Work Phone: [facility] Work Phone: 03-03-2019 measles, mumps and rubella virus vaccine Arpit Parekh [facility] Work Phone: [facility] Work Phone: 02-25-2019 hepatitis B vaccine, adult dosage Arpit Parekh [facility] Payers Date Payer Category Payer Unknown [id number] 2022 Private Health Insurance [id number] 2018 Unknown BCBS [place] - [place] P PO xxxxxxxxxxxx 2018-Present [address] [place] [address] xxxxxxxxxxxx [id number] 2018 Unknown [id number] 1998 Unknown [id number] 2.16.840.1.394169.3.579.2 .174 1998 Unknown [id number] 2.16.840.1.819220.3.579.2 .174 1998 Unknown [id number] 2.16.840.1.894729.3.579.2 .1259 1998 Unknown [id number] 2.16.840.1.613573.3.579.2 .9 1998 Unknown [id number] 2.16.840.1.861416.3.579.2 .9 1998 Unknown [id number] 2.16.840.1.093200.3.579.2 .9 1998 Unknown [id number] 2.16.840.1.497752.3.579.2 .1259 1998 Unknown [id number] 2.16.840.1.483389.3.579.2 .9 1998 Unknown [id number] 2.16.840.1.689276.3.579.2 .9 1998 Unknown [id number] 2.16.840.1.858430.3.579.2 .9 1998 Unknown [id number] 2.16.840.1.278984.3.579.2 .9 1998 Unknown [id number] 2.16.840.1.568117.3.579.2 .1259 Social History Date Type Detail Facility Start: 04-25-2016 End: 11-26-2018 Tobacco smoking status NHIS Never smoker [place], [place] Start: 11-26-2018 Alcohol intake No [place], [place] Start: 1998 Sex Assigned At Not on file M [place], [place] Start: 04-25-2016 Tobacco use and exposure Smokeless tobacco non-user [employer] Phone: Start: 12-13-2021 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 intake 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) [employer] Phone: Start: 12-13-2021 History SDOH Financial 5 [employer] Phone: Start: 12-13-2021 History 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 1 MAURICE Strutta Work Phone: Evaluation note Note Date & Type Note Facility Evaluation note Diagnosis Blood in stool, gustavo Blood in stool Gastroesophageal reflux disease without esophagitis Esophageal reflux Diarrhea, unspecified type Abdominal cramping Abdominal pain, unspecified site documented in this encounter MAURICE Strutta Work Phone: Assessments Diagnosis Need for varicella vaccine Need for prophylactic vaccination and inoculation against varicella Advance Directives No Advanced Directives Records FoundDocuments on File Type Date Recorded 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 Advance Directives and Living Will Power of Pastrycook Documents on File Type Date Recorded 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 Specialists [facility] FOR RECORDS PERTAINING TO PATIENTS WHO [...] BE BASED ON THE PRIMARY CLINICAL RECORDS. [employer] provides no warranty or guarantee of the accuracy or completeness of information in this document.
--- NOTE | 2023-11-21 16:57 | PC.NURSE ---
Kirill latches and feeds well from left breast. Audible swallowing noted. to right breast, pushes, cries, arching back. Rooting frantically without latch. Used cross cradle, football hold and laid back positions without latch. Mom and baby into side lying position with success of latch . Baby relaxes without pressure on shoulder blades and directing head towards breast. appears to dislike head turning past midline towards right shoulder. Bilateral shoulders high and tight. Mother requests referral to healthcare insurance sales agent for infant Given info. nurses 20 minutes in side lying position
--- NOTE | 2023-11-21 17:08 | PC.NURSE ---
Family arrives for follow up appointment. Mom states is concerned as baby weighed at Dr Good's office and was down to 6 pounds Baby is breastfed, feeding well at left breast and very difficult on right breast to latch and maintain latch. LC assesses and monitors feeding, finding will latch in side lying position. Baby resists turning head past midline to right shoulder, shoulders are high and tight. Referral for chiropractic evaluation given per mom's request. Luke VSS and assessment WNL. BP elevated, and states because I am upset Will return 11/24/2023 for assistance. Baby Kirill VSS and assessment WNL. No bili as no trace of jaundice in skin tone. Infant weight obtained at 6-5, and re-checked for accuracy. Remains 6-5 (2870 gms) Family home and will return for continued assistance
[2023-11-21 17:09] VITALS: BP 143/92; PULSE 110; TEMP 36.9; O2SAT 98
== END 2023-11-21 17:13 | disposition home or self-care (01) ==
LOC: FBCO 08:31
PROVIDERS: Visit Provider Obstetrics & Gynecology
DX: Z39.1 Encounter for care and examination of lactating mother (principal)

== ENCOUNTER 2023-11-24 08:21 | Outpatient (OUT) | payer BC, OTHER, SELFPAY ==
--- OUTSIDE RECORDS SUMMARY | 2023-11-24 08:31 | XMS_ITS | CCD ---
Author Organization [facility] Care Team Providers Care Flying Squad Worker Name Role Phone Arpit Parekh Primary Care Provider TERRENCE WOLF Attending Unavailable ARPIT PAREKH Primary Care Unavailable ARPIT PAREKH Primary Care Unavailable WILLIAM WHITAKER Attending Unavailable ASTON, ALICIA Attending Unavailable RITA, NAHED Attending Unavailable ASTNO, ALICIA Attending Unavailable RITA, NAHED Attending Unavailable [...] 05-30-2023 Abs. Basophil 0.01 k/uL Normal 0.00-0.20 [facility] Comment on above: Performed By: #### C DP, CP #### [facility] [address] [place] [address] Sandblast Operator: Mkie Forde MD Abs.Imm.Granulocyte 0.01 k/uL Normal 0.00-0.30 [facility] Comment on above: Performed By: #### C DP, CP #### [facility] [address] [place] [phone] Sandblast Operator: Mike Forde MD Abs.Neutrophil (Seg) 6.24 k/uL Normal 2.5-7.0 [facility] Comment on above: Performed By: #### C DP, CP #### [facility] [address] [place] [address] Sandblast Operator: Mike Forde MD Basophils/100 WBC (Bld) 0 % Normal 0-2 [facility] Comment on above: Performed By: #### C DP, CP #### [facility] [address] [place] [phone] Sandblast Operator: Mike Forde MD Eosinophils (Bld) [#/Vol] 0.00 10*3/uL Normal 0.00-0.40 [facility] Comment on above: Performed By: #### C DP, CP #### [facility] [address] [place] [address] Sandblast Operator: Mike Forde MD Eosinophils/100 WBC (Bld) 0 % Normal 0-5 [facility] Comment on above: Performed By: #### C DP, CP #### [facility] [address] [place], [place] [phone] Sandblast Operator: Mike Forde MD Erythrocyte distribution width (RBC) [Ratio] 11.9 % Low 12.1-15.2 [facility] Comment on above: Performed By: #### C DP, CP #### [facility] [address] [place], [place] [phone] Sandblast Operator: Mike Forde MD Hematocrit (Bld) [Volume fraction] 41.1 % Normal 36.0-46.0 [facility] Comment on above: Performed By: #### C DP, CP #### [facility] [address] [place], [place] [phone] Sandblast Operator: Mike Forde MD Hemoglobin (Bld) [Mass/Vol] 14.5 g/dL Normal 12.0-16.0 [facility] Comment on above: Performed By: #### C DP, CP #### [facility] [address] [place], [place] [phone] Sandblast Operator: Mike Forde MD Immature granulocytes/100 WBC (Bld) 0 % Normal 0-5 [facility] Comment on above: Performed By: #### C DP, CP #### [facility] [address] [place] [address] Sandblast Operator: Mike Forde MD Lymphocytes (Bld) [#/Vol] 1.74 10*3/uL Normal 1.00-4.80 [facility] Comment on above: Performed By: #### C DP, CP #### [facility] [address] [place], [place] [phone] Sandblast Operator: Mike Forde MD Lymphocytes/100 WBC (Bld) 21 % Normal 15-40 [facility] Comment on above: Performed By: #### C DP, CP #### [facility] [address] [place] [address] Sandblast Operator: Mike Forde MD MCH (RBC) [Entitic mass] 29.2 pg Normal 26.0-34.0 [facility] Comment on above: Performed By: #### C DP, CP #### [facility] [address] [place] [phone] Sandblast Operator: Mike Forde MD MCHC (RBC) [Mass/Vol] 35.3 g/dL Normal 31.0-37.0 [facility] Comment on above: Performed By: #### C DP, CP #### [facility] [address] [place] [phone] Sandblast Operator: Mike Forde MD MCV (RBC) [Entitic vol] 82.9 fL Normal 80.0-100.0 [facility] Comment on above: Performed By: #### C DP, CP #### [facility] [address] [place] [address] Sandblast Operator: Miek Forde MD Monocytes (Bld) [#/Vol] 0.50 10*3/uL Normal 0.00-1.00 [facility] Comment on above: Performed By: #### C DP, CP #### [facility] [address] [place] [phone] Sandblast Operator: Mike Forde MD Monocytes/100 WBC (Bld) 6 % Normal 4-8 [facility] Comment on above: Performed By: #### C DP, CP #### [facility] [address] [place] [address] Sandblast Operator: Mike Forde MD Neutrophil (Seg) 73 % Normal 47-75 [facility] Comment on above: Performed By: #### C DP, CP #### [facility] [address] [place], [place] [phone] Sandblast Operator: Mike Forde MD Platelet mean volume (Bld) [Entitic vol] 10.4 fL Normal 6.0-12.0 [facility] Comment on above: Performed By: #### C DP, CP #### [facility] [address] [place] [address] Sandblast Operator: Mike Forde MD Platelets (Bld) [#/Vol] 227 10*3/uL Normal 140-450 [facility] Comment on above: Performed By: #### C DP, CP #### [facility] [address] [place] [phone] Sandblast Operator: Mike Forde MD RBC (Bld) [#/Vol] 4.96 10*6/uL Normal 4.00-5.20 [facility] Comment on above: Performed By: #### C DP, CP #### [facility] [address] [place], [place] [phone] Sandblast Operator: Mike Forde MD WBC (Bld) [#/Vol] 8.5 10*3/uL Normal 3.5-11.0 [facility] Comment on above: Performed By: #### C DP, CP #### [facility] [address] [place] [address] Sandblast Operator: Mike Forde MD Comp Metabolic Profon 2022 Albumin [Mass/Vol] 4.2 g/dL Normal 3.5-5.2 [facility] Comment on above: Performed By: #### C DP, CP #### [facility] [address] [place] [address] Sandblast Operator: Mike Forde MD Alkaline Phos 48 U/L Normal 35-104 [facility] Comment on above: Performed By: #### C DP, CP #### [facility] [address] [place], [place] [phone] Sandblast Operator: Mike Forde MD ALT [Catalytic activity/Vol] 12 U/L Normal 5-33 [facility] Comment on above: Performed By: #### C DP, CP #### [facility] [address] [place], [place] [phone] Sandblast Operator: Mike Forde MD Anion gap [Moles/Vol] 15 mmol/L Normal 9-17 [facility] Comment on above: Performed By: #### C DP, CP #### [facility] [address] [place], [place] [phone] Sandblast Operator: Mike Forde MD AST [Catalytic activity/Vol] 11 U/L Normal <32 [facility] Comment on above: Performed By: #### C DP, CP #### [facility] [address] [place], [place] [phone] Sandblast Operator: Mike Forde MD Bilirubin [Mass/Vol] mg/dL Low 0.3-1.2 [facility] Comment on above: Performed By: #### C DP, CP #### [facility] [address] [place], [place] [phone] Sandblast Operator: Mike Forde MD BUN/CRE Ratio 14 Normal 9-20 [facility] Comment on above: Performed By: #### C DP, CP #### [facility] [address] [place], [place] [phone] Sandblast Operator: Mike Forde MD Calcium [Mass/Vol] 9.7 mg/dL Normal 8.6-10.4 [facility] Comment on above: Performed By: #### C DP, CP #### [facility] [address] [place], [place] [phone] Sandblast Operator: Mike Forde MD Chloride [Moles/Vol] 101 mmol/L Normal 98-107 [facility] Comment on above: Performed By: #### C DP, CP #### [facility] [address] [place], [place] [phone] Sandblast Operator: Mike Forde MD CO2 [Moles/Vol] 22 mmol/L Normal 20-31 [facility] Comment on above: Performed By: #### C DP, CP #### [facility] [address] [place] [address] Sandblast Operator: Mike Forde MD Creatinine [Mass/Vol] 0.5 mg/dL Normal 0.5-0.9 [facility] Comment on above: Performed By: #### C DP, CP #### [facility] [address] [place] [address] Sandblast Operator: Mike Forde MD GFR/1.73 sq M.predicted among non-blacks MDRD (S/P/Bld) [Vol rate/Area] mL/min/{1.73_m2} Normal >60 [facility] Comment on above: Result Comment: [...] CP #### [facility] [address] [place] [address] Sandblast Operator: Mike Forde MD Glucose [Mass/Vol] 90 mg/dL Normal 70-99 [facility] Comment on above: Performed By: #### C DP, CP #### [facility] [address] [place], [place] [phone] Sandblast Operator: Mike Forde MD Potassium [Moles/Vol] 3.5 mmol/L Low 3.7-5.3 [facility] Comment on above: Performed By: #### C DP, CP #### [facility] [address] [place] [address] Sandblast Operator: Mike Forde MD Protein [Mass/Vol] 7.5 g/dL Normal 6.4-8.3 [facility] Comment on above: Performed By: #### C DP, CP #### [facility] [address] [place], [place] [phone] Sandblast Operator: Mike Forde MD Sodium [Moles/Vol] 138 mmol/L Normal 135-144 [facility] Comment on above: Performed By: #### C DP, CP #### [facility] [address] [place] [address] Sandblast Operator: Mike Forde MD Urea nitrogen [Mass/Vol] 7 mg/dL Normal 6-20 [facility] Comment on above: Performed By: #### C DP, CP #### [facility] [address] [place] [address] Sandblast Operator: Mike Forde MD Basic Metabolic Profon 04-16 Anion gap [Moles/Vol] 15 mmol/L Normal - [facility] Comment on above: Performed By: #### C DP, BMP #### [facility] [address] [place] [address] Sandblast Operator: Mike Forde MD BUN/CRE Ratio 10 Normal -20 [facility] Comment on above: Performed By: #### C DP, BMP #### [facility] [address] [place] [address] Sandblast Operator: Mike Forde MD Calcium [Mass/Vol] 10.2 mg/dL Normal 8.6-10.4 [facility] Comment on above: Performed By: #### C DP, BMP #### [facility] [address] [place], [place] [phone] Sandblast Operator: Mike Forde MD Chloride [Moles/Vol] 98 mmol/L Normal 98-107 [facility] Comment on above: Performed By: #### C DP, BMP #### [facility] [address] [place] [address] Sandblast Operator: Mike Forde MD CO2 [Moles/Vol] 22 mmol/L Normal 20-31 [facility] Comment on above: Performed By: #### C DP, BMP #### [facility] [address] [place] [address] Sandblast Operator: Mike Forde MD Creatinine [Mass/Vol] 0.7 mg/dL Normal 0.5-0.9 [facility] Comment on above: Performed By: #### C DP, BMP #### [facility] [address] [place], [place] [phone] Sandblast Operator: Mike Forde MD GFR/1.73 sq M.predicted among non-blacks MDRD (S/P/Bld) [Vol rate/Area] mL/min/{1.73_m2} Normal >60 [facility] Comment on above: Result Comment: [...] BMP #### [facility] [address] [place], [place] [phone] Sandblast Operator: Mike Forde MD Glucose [Mass/Vol] 113 mg/dL High 70-99 [facility] Comment on above: Performed By: #### C DP, BMP #### [facility] [address] [place] [address] Sandblast Operator: Mike Forde MD Potassium [Moles/Vol] 3.4 mmol/L Low 3.7-5.3 [facility] Comment on above: Performed By: #### C DP, BMP #### [facility] [address] [place] [phone] Sandblast Operator: Mike Forde MD Sodium [Moles/Vol] 135 mmol/L Normal 135-144 [facility] Comment on above: Performed By: #### C DP, BMP #### [facility] [address] [place] [phone] Sandblast Operator: Mike Forde MD Urea nitrogen [Mass/Vol] 7 mg/dL Normal 6-20 [facility] Comment on above: Performed By: #### C DP, BMP #### [facility] [address] [place] [address] Sandblast Operator: Mike Forde MD CBC with Diffon 04-16-2023 Abs. Basophil 0.03 k/uL Normal 0.00-0.20 [facility] Comment on above: Performed By: #### C DP, BMP #### [facility] [address] [place] [phone] Sandblast Operator: Mike Forde MD Abs.Imm.Granulocyte 0.02 k/uL Normal 0.00-0.30 [facility] Comment on above: Performed By: #### C DP, BMP #### [facility] [address] [place] [address] Sandblast Operator: Mike Forde MD Abs.Neutrophil (Seg) 7.51 k/uL High 2.5-7.0 [facility] Comment on above: Performed By: #### C DP, BMP #### [facility] [address] [place] [phone] Sandblast Operator: Mike Forde MD Basophils/100 WBC (Bld) 0 % Normal 0-2 [facility] Comment on above: Performed By: #### C DP, BMP #### [facility] [address] [place], [place] [phone] Sandblast Operator: Mike Forde MD Eosinophils (Bld) [#/Vol] 0.03 10*3/uL Normal 0.00-0.40 [facility] Comment on above: Performed By: #### C DP, BMP #### [facility] [address] [place], [place] [phone] Sandblast Operator: Mike Forde MD Eosinophils/100 WBC (Bld) 0 % Normal 0-5 [facility] Comment on above: Performed By: #### C DP, BMP #### [facility] [address] [place] [address] Sandblast Operator: Mike Forde MD Erythrocyte distribution width (RBC) [Ratio] 11.8 % Low 12.1-15.2 [facility] Comment on above: Performed By: #### C DP, BMP #### [facility] [address] [place], [place] [phone] Sandblast Operator: Mike Forde MD Hematocrit (Bld) [Volume fraction] 43.4 % Normal 36.0-46.0 [facility] Comment on above: Performed By: #### C DP, BMP #### [facility] [address] [place], [place] [phone] Sandblast Operator: Mike Forde MD Hemoglobin (Bld) [Mass/Vol] 15.5 g/dL Normal 12.0-16.0 [facility] Comment on above: Performed By: #### C DP, BMP #### [facility] [address] [place], [place] [phone] Sandblast Operator: Mike Forde MD Immature granulocytes/100 WBC (Bld) 0 % Normal 0-5 [facility] Comment on above: Performed By: #### C DP, BMP #### [facility] [address] [place], [place] [phone] Sandblast Operator: Mike Forde MD Lymphocytes (Bld) [#/Vol] 2.33 10*3/uL Normal 1.00-4.80 [facility] Comment on above: Performed By: #### C DP, BMP #### [facility] [address] [place] [address] Sandblast Operator: Mike Forde MD Lymphocytes/100 WBC (Bld) 22 % Normal 15-40 [facility] Comment on above: Performed By: #### C DP, BMP #### [facility] [address] [place] [phone] Sandblast Operator: Mike Forde MD MCH (RBC) [Entitic mass] 28.9 pg Normal 26.0-34.0 [facility] Comment on above: Performed By: #### C DP, BMP #### [facility] [address] [place] [phone] Sandblast Operator: Mike Forde MD MCHC (RBC) [Mass/Vol] 35.7 g/dL Normal 31.0-37.0 [facility] Comment on above: Performed By: #### C DP, BMP #### [facility] [address] [place] [address] Sandblast Operator: Mike Forde MD MCV (RBC) [Entitic vol] 80.8 fL Normal 80.0-100.0 [facility] Comment on above: Performed By: #### C DP, BMP #### [facility] [address] [place] [address] Sandblast Operator: Mike Forde MD Monocytes (Bld) [#/Vol] 0.88 10*3/uL Normal 0.00-1.00 [facility] Comment on above: Performed By: #### C DP, BMP #### [facility] [address] [place] [address] Sandblast Operator: Mike Forde MD Monocytes/100 WBC (Bld) 8 % Normal 4-8 [facility] Comment on above: Performed By: #### C DP, BMP #### [facility] [address] [place], [place] [phone] ([phone] Sandblast Operator: Mike Forde MD Neutrophil (Seg) 70 % Normal 47-75 [facility] Comment on above: Performed By: #### C DP, BMP #### [facility] [address] [place], [place] [phone] ([phone] Sandblast Operator: Mike Forde MD Platelet mean volume (Bld) [Entitic vol] 10.5 fL Normal 6.0-12.0 [facility] Comment on above: Performed By: #### C DP, BMP #### [facility] [address] [place], [place] [phone] ([phone] Sandblast Operator: Mike Forde MD Platelets (Bld) [#/Vol] 279 10*3/uL Normal 140-450 [facility] Comment on above: Performed By: #### C DP, BMP #### [facility] [address] [place], [place] [phone] (149) Sandblast Operator: Mike Forde MD RBC (Bld) [#/Vol] 5.37 10*6/uL High 4.00-5.20 [facility] Comment on above: Performed By: #### C DP, BMP #### [facility] [address] [place], [place] [phone] ([phone] Sandblast Operator: Mike Forde MD WBC (Bld) [#/Vol] 10.8 10*3/uL Normal 3.5-11.0 [facility] Comment on above: Performed By: #### C DP, BMP #### [facility] [address] [place], [place] [phone] ([phone] Sandblast Operator: Mike Forde MD CBC with Auto Differentialon 12-13-2021 Absolute Eos # 0.00 [facility] Absolute Lymph # 1.90 MAURICE HERRERAO MILAN [facility] Absolute Shannon # 0.50 [facility] Basophils (Bld) [#/Vol] 0.00 10*3/uL [facility] Basophils/100 WBC (Bld) 0 % 0 - 2 % [facility] Differential Type YES [facility] Eosinophils/100 WBC (Bld) 0 % 0 - 5 % [facility] Hematocrit (Bld) [Volume fraction] 43.5 % 36 - 46 % [facility] Hemoglobin (Bld) [Mass/Vol] 14.6 g/dL 12.0 - 16.0 g/dL [facility] Lymphocytes/100 WBC (Bld) 21 % 15 - 40 % [facility] MCH (RBC) [Entitic mass] 28.9 pg 26 - 34 pg [facility] MCHC (RBC) [Mass/Vol] 33.5 g/dL 31 - 37 g/dL [facility] MCV (RBC) [Entitic vol] 86.2 fL 80 - 100 fL [facility] Monocytes/100 WBC (Bld) 5 % 4 - 8 % [facility] Platelet distribution width (Bld) [Ratio] 12.3 % 12.1 - 15.2 % [facility] Platelets (Bld) [#/Vol] 265 10*3/uL [facility] RBC (Bld) [#/Vol] 5.05 10*6/uL 4.0 - 5.2 m/uL [facility] Segmented neutrophils/100 WBC (Bld) 74 % 47 - 75 % [facility] Segs Absolute 6.60 [facility] WBC (Bld) [#/Vol] 9.1 10*3/uL [facility] Comprehensive Metabolic Pane davi 12-13-2021 Albumin [Mass/Vol] 4.3 g/dL 3.5 - 5.2 g/dL [facility] ALP (Bld) [Catalytic activity/Vol] 77 U/L 35 - 104 U/L [facility] ALT [Catalytic activity/Vol] 23 U/L 5 - 33 U/L [facility] Anion gap [Moles/Vol] 11 mmol/L 9 - 17 mmol/L [facility] AST [Catalytic activity/Vol] 15 U/L <32 [facility] Bilirubin [Mass/Vol] 0.51 mg/dL 0.30 - 1.20 mg/dL [facility] Calcium [Mass/Vol] 9.6 mg/dL 8.6 - 10.4 mg/dL [facility] Chloride [Moles/Vol] 102 mmol/L 98 - 107 mmol/L [facility] CO2 [Moles/Vol] 25 mmol/L 20 - 31 mmol/L [facility] Creatinine [Mass/Vol] 0.77 mg/dL 0.50 - 0.90 mg/dL [facility] Free PSA/Total PSA [Mass fraction] 7.4 g/dL 6.4 - 8.3 g/dL [facility] GFR >60 >60 mL/min [facility] GFR Non- >60 >60 mL/min [facility] GFR/1.73 sq M.predicted MDRD (S/P/Bld) [Vol rate/Area] [facility] Comment on above: Average GFR for 20-2 9 years old: 116 mL/min/1.73sq m Chronic Kidney Disease: <60 mL/min/1.73sq m Kidney failure: <15 mL/min/1.73sq m eGFR calculated using average adult body mass. Additional eGFR calculator available at: http://www.[employer]/multiple_crcl_2011.htm Glucose [Mass/Vol] 93 mg/dL 70 - 99 mg/dL [facility] Potassium [Moles/Vol] 4.2 mmol/L 3.7 - 5.3 mmol /L [facility] Sodium [Moles/Vol] 138 mmol/L 135 - 144 mmol/L [facility] Urea nitrogen (BldV) [Mass/Vol] 9 mg/dL 6 - 20 mg/dL [facility] Urea nitrogen/Creatinine (Bld) [Mass ratio] 12 [facility] Encounters Encounter Date Encounter Type Care Provider Facility Start: 11-13-2023 End: 11-13-2023 ambulatory NAHED RITA Not Available Start: 11-06-2023 End: 11-06-2023 ambulatory NAHED RITA Not Available Start: 10-31-2023 End: 10-31-2023 ambulatory NAHED RITA Not Available Start: 10-23-2023 End: 10-23-2023 ambulatory NAHED RITA Not Available Start: 10-05-2023 End: 10-05-2023 ambulatory ALICIA ASTON Not Available Start: 09-21-2023 End: 09-21-2023 ambulatory NHAED RITA Not Available Start: 09-07-2023 End: 09-07-2023 ambulatory ALICIA ASTON Not Available Start: 08-09-2023 End: 08-09-2023 ambulatory NAHED RITA Not Available Start: 07-12-2023 End: 07-12-2023 ambulatory ALICIA ASTON Not Available Start: 06-14-2023 End: 06-14-2023 ambulatory NAHED RITA Not Available Start: 05-30-2023 End: 05-31-2023 [facility] Start: 04-16-2023 End: 04-17-2023 [facility] Start: 12-13-2021 End: 12-13-2021 Subsequent hospital visit by physician Arpit Leblanc CNP Work Phone: [employer] [facility] Comment on above: Blood in stool, zeina k; Gastroesophageal reflux disease without esophagitis; Diarrhea, unspecified type; Abdominal cramping Start: 03-01-2019 End: 03-01-2019 Subsequent hospital visit by physician Arpit Parekh [facility] Comment on above: Need for varicella v accine Procedures Date Procedure Procedure Detail Performing Clinician Start: 12-13-2021 Comprehensive metabo lic panel Arpit Parekh APRN - [employer] Work Phone: Plan of Treatment Date Care Activity Detail Author Start: 11-26-2029 DTaP/Tdap/Td vaccine (3 - Td or Tdap) DTaP/Tdap/Td vaccine (3 - Td or Tdap) [facility] Start: 12-13-2022 Depression Screen Depression Screen [facility] Start: 03-14-2022 COVID-19 Vaccine (3 - Booster for Pfizer series) COVID-19 Vaccine (3 - Booster for Pfizer series) [facility] Start: 03-10-2022 Influenza vaccination Flu vaccine (S angelo Ended) [facility] Start: 01-11-2022 End: 01-11-2022 Patient encounter procedure 01/11/2022 Office Visit Family Medicine Arpit Parekh, TESTING CONSULTANT - [employer] [address] [phone] [facility] [place] Start: 2019 Screening for malign ant neoplasm of cervix Pap smear [facility] Start: 03-10-2019 Influenza vaccination Flu vaccine (# 1) [place], [place] Start: 2017 DTaP/Tdap/Td vaccine (1 - Tdap) DTaP/Tdap/Td vaccine (1 - Tdap) [place] Start: 2016 Hepatitis C screening Hepatitis C sc reen [facility] Start: 2014 Chlamydia screen Chlamydia screen [place], [place] Start: 2014 Screening for Chlamy nathalie trachomatis Chlamydia screen [facility] Start: 2013 HIV screen HIV screen [place], [place] Start: 2013 HIV screening HIV screen [facility] Start: 2013 HPV vaccine (1 - Fem dana 3-dose series) HPV vaccine (1 - Female 3-dose series) [place], [place] Start: 2011 Varicella Vaccine (1 of 2 - 13+ 2-dose series) Varicella Vaccine (1 of 2 - 13+ 2-dose series) [place] Start: 2009 HPV vaccine (1 - 2-d ose series) HPV vaccine (1 - 2-dose series) [facility] Start: 1999 Varicella vaccine (1 of 2 - 2-dose childhood series) Varicella vaccine (1 of 2 - 2-dose childhood series) [facility] End: 12-13-2021 CBC W Auto Differential panel - Blood CBC with Auto Differential Lab Routine Diarrhea, unspecified type Blood in stool, gustavo 1 Occurrences starting 12/13/2021 until 12/13/2021 [employer] Phone: Comment on above: 1 Occurrences starti ng 12/13/2021 until 12/13/2021 End: 12-13-2021 Celiac Disease Panel Celiac Disease Panel Lab Routine Diarrhea, unspecified type Abdominal cramping 1 Occurrences starting 12/13/2021 until 12/13/2021 [employer] Phone: Comment on above: 1 Occurrences starti ng 12/13/2021 until 12/13/2021 End: 12-13-2021 Celiac Plus [employer] Phone: Comment on above: Once for 1 Occurrenc es starting 12/13/2021 until 12/13/2021 End: 12-13-2021 Comprehensive metabolic 2000 panel - Serum or Plasma Comprehensive Metabolic Panel Lab Routine Blood in stool, gustavo Gastroesophageal reflux disease without esophagitis 1 Occurrences starting 12/13/2021 until 12/13/2021 [employer] Phone: Comment on above: 1 Occurrences starti ng 12/13/2021 until 12/13/2021 End: 03-01-2019 Varicella Zoster Antibody, IgG Varicella Zoster Antibody, IgG Lab Routine Need for varicella vaccine 1 Occurrences starting 03/01/2019 until 03/01/2019 [place], [place] Comment on above: 1 Occurrences starti ng 03/01/2019 until 03/01/2019 Varicella Zoster Antibody, IgG Varicella Zoster Antibody, IgG Lab Routine Need for varicella vaccine 03/01/2019 11:50 AM EDT [place] Immunizations Immunization Date Immunization Notes Care Provider Rohit mcnally 09-18-2021 COVID-19, Pfizer Pur ple top, DILUTE for use, 12+ yrs, 30mcg/0.3mL dose Arpit Parekh [employer]ING [employer]ANT [employer] Work Phone: [employer] Phone: 11-27-2019 Hepatitis B vaccine (recombinant), CpG adjuvanted Arpit Parekh [facility] Work Phone: [facility] [employer] [facility] Work Phone: 11-27-2019 tetanus toxoid, redu gordon diphtheria toxoid, and acellular pertussis vaccine, adsorbed Arpit Parekh [facility] Work Phone: [facility] Work Phone: 03-27-2019 hepatitis B vaccine, adult dosage Arpti Parekh [facility] Work Phone: [facility] Work Phone: 03-27-2019 measles, mumps and rubella virus vaccine Arpit Parekh [facility] Work Phone: [facility] [employer] [facility] Work Phone: 03-03-2019 measles, mumps and rubella virus vaccine Arpit Parekh [facility] Work Phone: [facility] Work Phone: 02-25-2019 hepatitis B vaccine, adult dosage Arpit Parekh [facility] Payers Date Payer Category Payer Unknown [id number] 2022 Private Health Insurance [id number] 2018 Unknown BCBS [place] - [place] P PO xxxxxxxxxxxx 2018-Present [address] [place] [address] xxxxxxxxxxxx [id number] 2018 Unknown [id number] 1998 Unknown [id number] 2.16.840.1.354159.3.579.2 .174 1998 Unknown [id number] 2.16.840.1.963576.3.579.2 .174 1998 Unknown [id number] 2.16.840.1.072815.3.579.2 .1259 1998 Unknown [id number] 2.16.840.1.059843.3.579.2 .9 1998 Unknown [id number] 2.16.840.1.137934.3.579.2 .9 1998 Unknown [id number] 2.16.840.1.678344.3.579.2 .9 1998 Unknown [id number] 2.16.840.1.807892.3.579.2 .1259 1998 Unknown [id number] 2.16.840.1.670509.3.579.2 .9 1998 Unknown [id number] 2.16.840.1.744620.3.579.2 .9 1998 Unknown [id number] 2.16.840.1.852950.3.579.2 .9 1998 Unknown [id number] 2.16.840.1.662308.3.579.2 .9 1998 Unknown [id number] 2.16.840.1.479807.3.579.2 .1259 Social History Date Type Detail Facility Start: 04-25-2016 End: 11-26-2018 Tobacco smoking status NHIS Never smoker [place] Start: 11-26-2018 Alcohol intake No [place], [place] Start: 1998 Sex Assigned At Not on file [place] Start: 04-25-2016 Tobacco use and exposure Smokeless tobacco non-user [employer] Phone: Start: 12-13-2021 Alcohol intake Current non-dr shaft sinker of alcohol (finding) [employer] Phone: Start: 12-13-2021 History SDOH Financial 5 [employer] Phone: Start: 12-13-2021 History 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 1 [facility] [employer] Work Phone: Evaluation note Note Date & Type Note Facility Evaluation note Diagnosis Blood in stool, gustavo Blood in stool Gastroesophageal reflux disease without esophagitis Esophageal reflux Diarrhea, unspecified type Abdominal cramping Abdominal pain, unspecified site documented in this encounter [facility] [employer] Work Phone: Assessments Diagnosis Need for varicella vaccine Need for prophylactic vaccination and inoculation against varicella Advance Directives No Advanced Directives Records FoundDocuments on File Type Date Recorded Patient Seed Technician Expl anation Advance Directives and Living Will Power of Political Theory Professor Documents on File Type Date Recorded Patient Seed Technician Expl anation ACP-Advance Directive ACP-Power of Political Theory Professor Summary Purpose Family History No Family History Records FoundNo Family History Records Found Additional Source Comments Care Teams (unrecognized sec tion and content) 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 [employer] provides no warranty or guarantee of the accuracy or completeness of information in this document.
--- NOTE | 2023-11-24 12:36 | PC.NURSE ---
Luke, and 7 dy old Kirill arrive for weight check. Mom states everything has changed Baby latches without difficulty, nurses well fo r30 minutes each feed, using both breasts. Feeding every 2 hours during the day and allows infant to wake on own for night time, slept 4.5 hours last night. Parents feel confident and capable in infant care. WEight increase of 40 grams since Monday afternoon. Infant has 8 wets and at least 8 yellow stools per parents report. Baby latches well and feeds well from both breasts, does not struggle to latch to either breast. Mom pleased with weight gain and progress made with latching. Will return 11/29/2023 for weight check.
== END 2023-11-24 12:45 | disposition home or self-care (01) ==
LOC: FBCO 08:22
PROVIDERS: Visit Provider Obstetrics & Gynecology
DX: Z39.1 Encounter for care and examination of lactating mother (principal)
CPT/HCPCS: G0463

== ENCOUNTER 2023-11-29 08:20 | Outpatient (OUT) | payer BC, OTHER, SELFPAY ==
--- OUTSIDE RECORDS SUMMARY | 2023-11-29 08:38 | XMS_ITS | CCD ---
Author Organization [facility] CliniSyal Care Team Providers Care Obedience Trainer Name Role Phone Arpit Parekh Primary [...] 05-30-2023 Abs. Basophil 0.01 k/uL Normal 0.00-0.20 [facility] Comment on above: Performed By: #### C DP, CP #### [facility] [address] [place] [address] Medical Specialist: Mike Forde MD Abs.Imm.Granulocyte 0.01 k/uL Normal 0.00-0.30 [facility] Comment on above: Performed By: #### C DP, CP #### [facility] [address] [place] [address] Medical Specialist: Mike Forde MD Abs.Neutrophil (Seg) 6.24 k/uL Normal 2.5-7.0 [facility] Comment on above: Performed By: #### C DP, CP #### [facility] [address] [place] [address] Medical Specialist: Mike Forde MD Basophils/100 WBC (Bld) 0 % Normal 0-2 [facility] Comment on above: Performed By: #### C DP, CP #### [facility] [address] [place] [address] Medical Specialist: Mike Forde MD Eosinophils (Bld) [#/Vol] 0.00 10*3/uL Normal 0.00-0.40 [facility] Comment on above: Performed By: #### C DP, CP #### [facility] [address] [place] [address] Medical Specialist: Mike Forde MD Eosinophils/100 WBC (Bld) 0 % Normal 0-5 [facility] Comment on above: Performed By: #### C DP, CP #### [facility] [address] [place], [place] [phone] Medical Specialist: Mike Forde MD Erythrocyte distribution width (RBC) [Ratio] 11.9 % Low 12.1-15.2 [facility] Comment on above: Performed By: #### C DP, CP #### [facility] [address] [place], [place] [phone] Medical Specialist: Mike Fored MD Hematocrit (Bld) [Volume fraction] 41.1 % Normal 36.0-46.0 [facility] Comment on above: Performed By: #### C DP, CP #### [facility] [address] [place] [address] Medical Specialist: Mike Forde MD Hemoglobin (Bld) [Mass/Vol] 14.5 g/dL Normal 12.0-16.0 [facility] Comment on above: Performed By: #### C DP, CP #### [facility] [address] [place] [address] Medical Specialist: Mike Forde MD Immature granulocytes/100 WBC (Bld) 0 % Normal 0-5 [facility] Comment on above: Performed By: #### C DP, CP #### [facility] [address] [place], [place] [id number] Medical Specialist: Mike Forde MD Lymphocytes (Bld) [#/Vol] 1.74 10*3/uL Normal 1.00-4.80 [facility] Comment on above: Performed By: #### C DP, CP #### [facility] [address] [place] [address] Medical Specialist: Mike Forde MD Lymphocytes/100 WBC (Bld) 21 % Normal 15-40 [facility] Comment on above: Performed By: #### C DP, CP #### [facility] [address] [place] [address] Medical Specialist: Mike Forde MD MCH (RBC) [Entitic mass] 29.2 pg Normal 26.0-34.0 [facility] Comment on above: Performed By: #### C DP, CP #### [facility] [address] [place] [phone] Medical Specialist: Mike Forde MD MCHC (RBC) [Mass/Vol] 35.3 g/dL Normal 31.0-37.0 [facility] Comment on above: Performed By: #### C DP, CP #### [facility] [address] [place] [phone] Medical Specialist: Mike Forde MD MCV (RBC) [Entitic vol] 82.9 fL Normal 80.0-100.0 [facility] Comment on above: Performed By: #### C DP, CP #### [facility] [address] [place] [address] Medical Specialist: Mike Forde MD Monocytes (Bld) [#/Vol] 0.50 10*3/uL Normal 0.00-1.00 [facility] Comment on above: Performed By: #### C DP, CP #### [facility] [address] [place] [address] Medical Specialist: Mike Forde MD Monocytes/100 WBC (Bld) 6 % Normal 4-8 [facility] Comment on above: Performed By: #### C DP, CP #### [facility] [address] [place] [address] Medical Specialist: Mike Forde MD Neutrophil (Seg) 73 % Normal 47-75 [facility] Comment on above: Performed By: #### C DP, CP #### [facility] [address] [place] [address] Medical Specialist: Mike Forde MD Platelet mean volume (Bld) [Entitic vol] 10.4 fL Normal 6.0-12.0 [facility] Comment on above: Performed By: #### C DP, CP #### [facility] [address] [place] [address] Medical Specialist: Mike Fodre MD Platelets (Bld) [#/Vol] 227 10*3/uL Normal 140-450 [facility] Comment on above: Performed By: #### C DP, CP #### [facility] [address] [place] [address] Medical Specialist: Mike Forde MD RBC (Bld) [#/Vol] 4.96 10*6/uL Normal 4.00-5.20 [facility] Comment on above: Performed By: #### C DP, CP #### [facility] [address] [place] [address] Medical Specialist: Mike Forde MD WBC (Bld) [#/Vol] 8.5 10*3/uL Normal 3.5-11.0 [facility] Comment on above: Performed By: #### C DP, CP #### [facility] [address] [place] [address] Medical Specialist: Mike Forde MD Comp Metabolic Profon 2022 Albumin [Mass/Vol] 4.2 g/dL Normal 3.5-5.2 [facility] Comment on above: Performed By: #### C DP, CP #### [facility] [address] [place] [address] Medical Specialist: Mike Forde MD Alkaline Phos 48 U/L Normal 35-104 [facility] Comment on above: Performed By: #### C DP, CP #### [facility] [address] [place], [place] [phone] Medical Specialist: Mike Forde MD ALT [Catalytic activity/Vol] 12 U/L Normal 5-33 [facility] Comment on above: Performed By: #### C DP, CP #### [facility] [address] [place], [place] [phone] Medical Specialist: Mike Forde MD Anion gap [Moles/Vol] 15 mmol/L Normal 9-17 [facility] Comment on above: Performed By: #### C DP, CP #### [facility] [address] [place], [place] [phone] Medical Specialist: Mike Forde MD AST [Catalytic activity/Vol] 11 U/L Normal <32 [facility] Comment on above: Performed By: #### C DP, CP #### [facility] [address] [place], [place] [phone] Medical Specialist: Mike Forde MD Bilirubin [Mass/Vol] mg/dL Low 0.3-1.2 [facility] Comment on above: Performed By: #### C DP, CP #### [facility] [address] [place], [place] [phone] Medical Specialist: Mike Forde MD BUN/CRE Ratio 14 Normal 9-20 [facility] Comment on above: Performed By: #### C DP, CP #### [facility] [address] [place], [place] [phone] Medical Specialist: Mike Forde MD Calcium [Mass/Vol] 9.7 mg/dL Normal 8.6-10.4 [facility] Comment on above: Performed By: #### C DP, CP #### [facility] [address] [place], [place] [phone] Medical Specialist: Mike Forde MD Chloride [Moles/Vol] 101 mmol/L Normal 98-107 [facility] Comment on above: Performed By: #### C DP, CP #### [facility] [address] [place], [place] [phone] Medical Specialist: Mike Forde MD CO2 [Moles/Vol] 22 mmol/L Normal 20-31 [facility] Comment on above: Performed By: #### C DP, CP #### [facility] [address] [place], [place] [phone] Medical Specialist: Mike Forde MD Creatinine [Mass/Vol] 0.5 mg/dL Normal 0.5-0.9 [facility] Comment on above: Performed By: #### C DP, CP #### [facility] [address] [place] [address] Medical Specialist: Mike Forde MD GFR/1.73 sq M.predicted among non-blacks MDRD (S/P/Bld) [Vol rate/Area] mL/min/{1.73_m2} Normal >60 [facility] Comment on above: Result Comment: These [...] Performed By: #### C DP, CP #### [facility] [address] [place] [address] Medical Specialist: Mike Forde MD Glucose [Mass/Vol] 90 mg/dL Normal 70-99 [facility] Comment on above: Performed By: #### C DP, CP #### [facility] [address] [place], [place] [phone] Medical Specialist: Mike Forde MD Potassium [Moles/Vol] 3.5 mmol/L Low 3.7-5.3 [facility] Comment on above: Performed By: #### C DP, CP #### [facility] [address] [place] [address] Medical Specialist: Mike Forde MD Protein [Mass/Vol] 7.5 g/dL Normal 6.4-8.3 [facility] Comment on above: Performed By: #### C DP, CP #### [facility] [address] [place], [place] [phone] Medical Specialist: Mike Forde MD Sodium [Moles/Vol] 138 mmol/L Normal 135-144 [facility] Comment on above: Performed By: #### C DP, CP #### [facility] [address] [place], [place] [phone] Medical Specialist: Mike Forde MD Urea nitrogen [Mass/Vol] 7 mg/dL Normal 6-20 [facility] Comment on above: Performed By: #### C DP, CP #### [facility] [address] [place], [place] [phone] Medical Specialist: Mike Forde MD Basic Metabolic Profon 04-16 Anion gap [Moles/Vol] 15 mmol/L Normal - [facility] Comment on above: Performed By: #### C DP, BMP #### [facility] [address] [place], [place] [phone] Medical Specialist: Mike Forde MD BUN/CRE Ratio 10 Normal - [facility] Comment on above: Performed By: #### C DP, BMP #### [facility] [address] [place], [place] [id number] Medical Specialist: Mike Forde MD Calcium [Mass/Vol] 10.2 mg/dL Normal 8.6-10.4 [facility] Comment on above: Performed By: #### C DP, BMP #### [facility] [address] [place], [place] [phone] Medical Specialist: Mike Forde MD Chloride [Moles/Vol] 98 mmol/L Normal 98-107 [facility] Comment on above: Performed By: #### C DP, BMP #### [facility] [address] [place], [place] [phone] Medical Specialist: Mike Forde MD CO2 [Moles/Vol] 22 mmol/L Normal 20-31 [facility] Comment on above: Performed By: #### C DP, BMP #### [facility] [address] [place], [place] [phone] Medical Specialist: Mike Forde MD Creatinine [Mass/Vol] 0.7 mg/dL Normal 0.5-0.9 [facility] Comment on above: Performed By: #### C DP, BMP #### [facility] [address] [place] [address] Medical Specialist: Mike Forde MD GFR/1.73 sq M.predicted among non-blacks MDRD (S/P/Bld) [Vol rate/Area] mL/min/{1.73_m2} Normal >60 [facility] Comment on above: Result Comment: These [...] Performed By: #### C DP, BMP #### [facility] [address] [place], [place] [phone] Medical Specialist: Mike Forde MD Glucose [Mass/Vol] 113 mg/dL High 70-99 [facility] Comment on above: Performed By: #### C DP, BMP #### [facility] [address] [place], [place] [phone] Medical Specialist: Mike Forde MD Potassium [Moles/Vol] 3.4 mmol/L Low 3.7-5.3 [facility] Comment on above: Performed By: #### C DP, BMP #### [facility] [address] [place], [place] [phone] Medical Specialist: Mike Forde MD Sodium [Moles/Vol] 135 mmol/L Normal 135-144 [facility] Comment on above: Performed By: #### C DP, BMP #### [facility] [address] [place] [address] Medical Specialist: Mike Forde MD Urea nitrogen [Mass/Vol] 7 mg/dL Normal 6-20 [facility] Comment on above: Performed By: #### C DP, BMP #### [facility] [address] [place] [address] Medical Specialist: Mike Forde MD CBC with Diffon 04-16-2023 Abs. Basophil 0.03 k/uL Normal 0.00-0.20 [facility] Comment on above: Performed By: #### C DP, BMP #### [facility] [address] [place] [phone] Medical Specialist: Mike Forde MD Abs.Imm.Granulocyte 0.02 k/uL Normal 0.00-0.30 [facility] Comment on above: Performed By: #### C DP, BMP #### [facility] [address] [place] [address] Medical Specialist: Mike Forde MD Abs.Neutrophil (Seg) 7.51 k/uL High 2.5-7.0 [facility] Comment on above: Performed By: #### C DP, BMP #### [facility] [address] [place] [phone] Medical Specialist: Mike Forde MD Basophils/100 WBC (Bld) 0 % Normal 0-2 [facility] Comment on above: Performed By: #### C DP, BMP #### [facility] [address] [place], [place] [phone] Medical Specialist: Mike Forde MD Eosinophils (Bld) [#/Vol] 0.03 10*3/uL Normal 0.00-0.40 [facility] Comment on above: Performed By: #### C DP, BMP #### [facility] [address] [place], [place] [phone] Medical Specialist: Mike Forde MD Eosinophils/100 WBC (Bld) 0 % Normal 0-5 [facility] Comment on above: Performed By: #### C DP, BMP #### [facility] [address] [place] [address] Medical Specialist: Mike Forde MD Erythrocyte distribution width (RBC) [Ratio] 11.8 % Low 12.1-15.2 [facility] Comment on above: Performed By: #### C DP, BMP #### [facility] [address] [place], [place] [phone] Medical Specialist: Mike Forde MD Hematocrit (Bld) [Volume fraction] 43.4 % Normal 36.0-46.0 [facility] Comment on above: Performed By: #### C DP, BMP #### [facility] [address] [place] [address] Medical Specialist: Mike Forde MD Hemoglobin (Bld) [Mass/Vol] 15.5 g/dL Normal 12.0-16.0 [facility] Comment on above: Performed By: #### C DP, BMP #### [facility] [address] [place], [place] [id number] Medical Specialist: Mike Forde MD Immature granulocytes/100 WBC (Bld) 0 % Normal 0-5 [facility] Comment on above: Performed By: #### C DP, BMP #### [facility] [address] [place] [address] Medical Specialist: Mike Forde MD Lymphocytes (Bld) [#/Vol] 2.33 10*3/uL Normal 1.00-4.80 [facility] Comment on above: Performed By: #### C DP, BMP #### [facility] [address] [place] [address] Medical Specialist: Mike Forde MD Lymphocytes/100 WBC (Bld) 22 % Normal 15-40 [facility] Comment on above: Performed By: #### C DP, BMP #### [facility] [address] [place] [address] Medical Specialist: Mike Forde MD MCH (RBC) [Entitic mass] 28.9 pg Normal 26.0-34.0 [facility] Comment on above: Performed By: #### C DP, BMP #### [facility] [address] [place] [address] Medical Specialist: Mike Forde MD MCHC (RBC) [Mass/Vol] 35.7 g/dL Normal 31.0-37.0 [facility] Comment on above: Performed By: #### C DP, BMP #### [facility] [address] [place] [phone] Medical Specialist: Mike Forde MD MCV (RBC) [Entitic vol] 80.8 fL Normal 80.0-100.0 [facility] Comment on above: Performed By: #### C DP, BMP #### [facility] [address] [place] [phone] Medical Specialist: Mike Forde MD Monocytes (Bld) [#/Vol] 0.88 10*3/uL Normal 0.00-1.00 [facility] Comment on above: Performed By: #### C DP, BMP #### [facility] [address] [place] [address] Medical Specialist: Mike Forde MD Monocytes/100 WBC (Bld) 8 % Normal 4-8 [facility] Comment on above: Performed By: #### C DP, BMP #### [facility] [address] [place], [place] [phone] ([phone]) Medical Specialist: Mike Forde MD Neutrophil (Seg) 70 % Normal 47-75 [facility] Comment on above: Performed By: #### C DP, BMP #### [facility] [address] [place], [place] [phone] ([phone] Medical Specialist: Mike Forde MD Platelet mean volume (Bld) [Entitic vol] 10.5 fL Normal 6.0-12.0 [facility] Comment on above: Performed By: #### C DP, BMP #### [facility] [address] [place], [place] [phone] (308) Medical Specialist: Mike Fored MD Platelets (Bld) [#/Vol] 279 10*3/uL Normal 140-450 [facility] Comment on above: Performed By: #### C DP, BMP #### [facility] [address] [place] [address] (336) Medical Specialist: Mike Forde MD RBC (Bld) [#/Vol] 5.37 10*6/uL High 4.00-5.20 [facility] Comment on above: Performed By: #### C DP, BMP #### [facility] [address] [place], [place] [phone] (216) Medical Specialist: Mike Forde MD WBC (Bld) [#/Vol] 10.8 10*3/uL Normal 3.5-11.0 [facility] Comment on above: Performed By: #### C DP, BMP #### [facility] [address] [place], [place] [phone] ([phone] Medical Specialist: Mike Forde MD CBC with Auto Differentialon 12-13-2021 Absolute Eos # 0.00 [facility] Absolute Lymph # 1.90 [facility] Absolute Meigs # 0.50 [facility] Basophils (Bld) [#/Vol] 0.00 10*3/uL [facility] Basophils/100 WBC (Bld) 0 % 0 - 2 % [facility] Differential Type YES [facility] Eosinophils/100 WBC (Bld) 0 % 0 - 5 % [facility] Hematocrit (Bld) [Volume fraction] 43.5 % 36 - 46 % [facility] Hemoglobin (Bld) [Mass/Vol] 14.6 g/dL 12.0 - 16.0 g/dL [facility] Lymphocytes/100 WBC (Bld) 21 % 15 - 40 % [facility] MCH (RBC) [Entitic mass] 28.9 pg 26 - 34 pg [facility] MCHC (RBC) [Mass/Vol] 33.5 g/dL 31 - 37 g/dL [facility] MCV (RBC) [Entitic vol] 86.2 fL 80 - 100 fL [facility] Monocytes/100 WBC (Bld) 5 % 4 - 8 % [facility] Platelet distribution width (Bld) [Ratio] 12.3 % 12.1 - 15.2 % [facility] Platelets (Bld) [#/Vol] 265 10*3/uL [facility] RBC (Bld) [#/Vol] 5.05 10*6/uL 4.0 - 5.2 m/uL [facility] Segmented neutrophils/100 WBC (Bld) 74 % 47 - 75 % [facility] Segs Absolute 6.60 [facility] WBC (Bld) [#/Vol] 9.1 10*3/uL [facility] Comprehensive Metabolic Pane davi 12-13-2021 Albumin [Mass/Vol] 4.3 g/dL 3.5 - 5.2 g/dL [facility] ALP (Bld) [Catalytic activity/Vol] 77 U/L 35 - 104 U/L [facility] ALT [Catalytic activity/Vol] 23 U/L 5 - 33 U/L [facility] Anion gap [Moles/Vol] 11 mmol/L 9 - 17 mmol/L [facility] AST [Catalytic activity/Vol] 15 U/L <32 [facility] Bilirubin [Mass/Vol] 0.51 mg/dL 0.30 - 1.20 mg/dL [facility] Calcium [Mass/Vol] 9.6 mg/dL 8.6 - 10.4 mg/dL [facility] Chloride [Moles/Vol] 102 mmol/L 98 - 107 mmol/L [facility] CO2 [Moles/Vol] 25 mmol/L 20 - 31 mmol/L [facility] Creatinine [Mass/Vol] 0.77 mg/dL 0.50 - 0.90 mg/dL [facility] Free PSA/Total PSA [Mass fraction] 7.4 g/dL 6.4 - 8.3 g/dL [facility] GFR >60 >60 mL/min [facility] GFR Non- >60 >60 mL/min [facility] GFR/1.73 sq M.predicted MDRD (S/P/Bld) [Vol rate/Area] [facility] Comment on above: Average GFR for 20-2 9 years old: 116 mL/min/1.73sq m Chronic Kidney Disease: <60 mL/min/1.73sq m Kidney failure: <15 mL/min/1.73sq m eGFR calculated using average adult body mass. Additional eGFR calculator available at: http://www.[employer]/multiple_crcl_2011.htm Glucose [Mass/Vol] 93 mg/dL 70 - 99 mg/dL [facility] Potassium [Moles/Vol] 4.2 mmol/L 3.7 - 5.3 mmol /L [facility] Sodium [Moles/Vol] 138 mmol/L 135 - 144 mmol/L [facility] Urea nitrogen (BldV) [Mass/Vol] 9 mg/dL 6 - 20 mg/dL [facility] Urea nitrogen/Creatinine (Bld) [Mass ratio] 12 [facility] Encounters Encounter Date Encounter Type [...] department patient visit TERRENCE WOLF [facility] Start: 04-16-2023 End: 04-17-2023 [facility] Start: 12-13-2021 End: 12-13-2021 Subsequent hospital visit by physician Arpit Parekh APRN - GLOBAL PROGRAM MANAGER Work Phone: [facility] Comment on above: Blood in stool, zeina k; Gastroesophageal reflux disease without esophagitis; Diarrhea, unspecified type; Abdominal cramping Start: 03-01-2019 End: 03-01-2019 Subsequent hospital visit by physician Arpit Parekh [facility] Comment on above: Need for varicella v accine Procedures Date Procedure Procedure Detail Performing Clinician Start: 12-13-2021 Comprehensive metabo lic panel Arpit Parekh GREENHOUSE INSTRUCTOR - GLOBAL PROGRAM MANAGER Work Phone: Plan of Treatment Date Care Activity Detail Author Start: 11-26-2029 DTaP/Tdap/Td vaccine (3 - Td or Tdap) DTaP/Tdap/Td vaccine (3 - Td or Tdap) [facility] Start: 12-13-2022 Depression Screen Depression Screen [facility] Start: 03-14-2022 COVID-19 Vaccine (3 - Booster for Pfizer series) COVID-19 Vaccine (3 - Booster for Pfizer series) [facility] Start: 03-10-2022 Influenza vaccination Flu vaccine (S angelo Ended) [facility] Start: 01-11-2022 End: 01-11-2022 Patient encounter procedure 01/11/2022 Office Visit Family Medicine Arpit Parekh, GREENHOUSE INSTRUCTOR - GLOBAL PROGRAM MANAGER [address] [place] [address] [facility] Start: 2019 Screening for malign ant neoplasm of cervix Pap smear [facility] Start: 03-10-2019 Influenza vaccination Flu vaccine (# 1) [place], [place] Start: 2017 DTaP/Tdap/Td vaccine (1 - Tdap) DTaP/Tdap/Td vaccine (1 - Tdap) [place], [place] Start: 2016 Hepatitis C screening Hepatitis C sc reen [facility] Start: 2014 Chlamydia screen Chlamydia screen [place], [place] Start: 2014 Screening for Chlamy nathalie trachomatis Chlamydia screen [facility] Start: 2013 HIV screen HIV screen [place], [place] Start: 2013 HIV screening HIV screen [facility] Start: 2013 HPV vaccine (1 - Fem dana 3-dose series) HPV vaccine (1 - Female 3-dose series) [place], [place] Start: 2011 Varicella Vaccine (1 of 2 - 13+ 2-dose series) Varicella Vaccine (1 of 2 - 13+ 2-dose series) [place], [place] Start: 2009 HPV vaccine (1 - 2-d ose series) HPV vaccine (1 - 2-dose series) [facility] Start: 1999 Varicella vaccine (1 of 2 - 2-dose childhood series) Varicella vaccine (1 of 2 - 2-dose childhood series) [facility] End: 12-13-2021 CBC W Auto Differential panel - Blood CBC with Auto Differential Lab Routine Diarrhea, unspecified type Blood in stool, gustavo 1 Occurrences starting 12/13/2021 until 12/13/2021 [employer] Phone: Comment on above: 1 Occurrences starti ng 12/13/2021 until 12/13/2021 End: 12-13-2021 Celiac Disease Panel Celiac Disease Panel Lab Routine Diarrhea, unspecified type Abdominal cramping 1 Occurrences starting 12/13/2021 until 12/13/2021 [employer] Phone: Comment on above: 1 Occurrences starti ng 12/13/2021 until 12/13/2021 End: 12-13-2021 Celiac Plus [employer] Phone: Comment on above: Once for 1 Occurrenc es starting 12/13/2021 until 12/13/2021 End: 12-13-2021 Comprehensive metabolic 2000 panel - Serum or Plasma Comprehensive Metabolic Panel Lab Routine Blood in stool, gustavo Gastroesophageal reflux disease without esophagitis 1 Occurrences starting 12/13/2021 until 12/13/2021 [employer] Phone: Comment on above: 1 Occurrences starti ng 12/13/2021 until 12/13/2021 End: 03-01-2019 Varicella Zoster Antibody, IgG Varicella Zoster Antibody, IgG Lab Routine Need for varicella vaccine 1 Occurrences starting 03/01/2019 until 03/01/2019 [place], [place] Comment on above: 1 Occurrences starti ng 03/01/2019 until 03/01/2019 Varicella Zoster Antibody, IgG Varicella Zoster Antibody, IgG Lab Routine Need for varicella vaccine 03/01/2019 11:50 AM EDT [place], [place] Immunizations Immunization Date Immunization Notes Care Provider Rohit mcnally 09-18-2021 COVID-19, Pfizer Pur ple top, DILUTE for use, 12+ yrs, 30mcg/0.3mL dose Arpit Parekh GREENHOUSE INSTRUCTOR - GLOBAL PROGRAM MANAGER Work Phone: [employer] Work Phone: 11-27-2019 Hepatitis B vaccine (recombinant), CpG adjuvanted Arpit Parekh [facility] [facility] Work Phone: [facility] Work Phone: 11-27-2019 tetanus toxoid, redu godron diphtheria toxoid, and acellular pertussis vaccine, adsorbed Arpit Parekh [facility] Work Phone: [facility] Work Phone: 03-27-2019 hepatitis B vaccine, adult dosage Arpit Parekh [facility] Work Phone: [facility] Work Phone: 03-27-2019 measles, mumps and rubella virus vaccine Arpit Parekh [facility] Work Phone: [facility] [employer] [facility] Work Phone: 03-03-2019 measles, mumps and rubella virus vaccine Arpit Parekh [facility] Work Phone: [facility] Work Phone: 02-25-2019 hepatitis B vaccine, adult dosage Arpit Parekh [facility] Payers Date Payer Category Payer Unknown [id number] 2022 Private Health Insurance [id number] 2018 Unknown BCBS [place] P PO xxxxxxxxxxxx 2018-Present [address] [place] [address] xxxxxxxxxxxx [id number] 2018 Unknown [id number] 1998 Unknown [id number] 2.16.840.1.419557.3.579.2 .174 1998 Unknown [id number] 2.16.840.1.314084.3.579.2 .174 1998 Unknown [id number] 2.16.840.1.900568.3.579.2 .1259 1998 Unknown [id number] 2.16.840.1.921575.3.579.2 .1259 1998 Unknown [id number] 2.16.840.1.990269.3.579.2 .9 1998 Unknown [id number] 2.16.840.1.548390.3.579.2 .1259 1998 Unknown [id number] 2.16.840.1.522370.3.579.2 .9 1998 Unknown [id number] 2.16.840.1.661197.3.579.2 .1259 1998 Unknown [id number] 2.16.840.1.323773.3.579.2 .9 1998 Unknown [id number] 2.16.840.1.586181.3.579.2 .9 1998 Unknown [id number] 2.16.840.1.073534.3.579.2 .9 1998 Unknown [id number] 2.16.840.1.575080.3.579.2 .1259 Social History Date Type Detail Facility Start: 04-25-2016 End: 11-26-2018 Tobacco smoking status NHIS Never smoker [place], [place] Start: 11-26-2018 Alcohol intake No [place], [place] Start: 1998 Sex Assigned At Not on file [place] Start: 04-25-2016 Tobacco use and exposure Smokeless tobacco non-user [employer] Phone: Start: 12-13-2021 Alcohol intake 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) [employer] Phone: Start: 12-13-2021 History SDOH Financial 5 [employer] Phone: Start: 12-13-2021 History 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 1 MAURICE Petsy Work Phone: Evaluation note Note Date & Type Note Facility Evaluation note Diagnosis Blood in stool, gustavo Blood in stool Gastroesophageal reflux disease without esophagitis Esophageal reflux Diarrhea, unspecified type Abdominal cramping Abdominal pain, unspecified site documented in this encounter [employer] Work Phone: Assessments Diagnosis Need for varicella vaccine Need for prophylactic vaccination and inoculation against varicella Advance Directives No Advanced Directives Records FoundDocuments on File Type Date Recorded 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 Advance Directives and Living Will Power of Polls Or Surveys Interviewer Documents on File Type Date Recorded 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 ACP-Advance Directive ACP-Power of Polls Or Surveys Interviewer Summary Purpose Family History No Family History Records FoundNo Family History Records Found Additional Source Comments Care Teams (unrecognized sec tion and content) Obedience Trainer Relationship Specialty Start Date End Date Arpit Parekh, GREENHOUSE INSTRUCTOR - GLOBAL PROGRAM MANAGER [address] [place] [address] PCP - General Nurse Practitioner 11/23/16 INFORMATION SOURCE (unrecogn ized section and content) DATE CREATED AUTHOR 06/02/2023 Rachel allen DATE CREATED AUTHOR AUTHOR'S MARÍA ELENAIZ KALIN 11/14/2023 [facility] FOR RECORDS PERTAINING [...] BE BASED ON THE PRIMARY CLINICAL RECORDS. [employer] provides no warranty or guarantee of the accuracy or completeness of information in this document.
--- NOTE | 2023-11-29 11:53 | PC.NURSE ---
Luke and 12 day old baby Kirill, arrive for weight check. Mom undresses and places him to breast immediately. States he cried the whole ride here, it's time for a feed Kirill latches without difficulty, mom handles self and baby well. Infant with deep latch and audible swallows noted. Feeds well fo r25 minutes with small break for burping. No nipple damage noted and Luke states working on feeding from both breasts per feed. If baby doesn't latch well or remove milk from 2nd breast, then will pump to move milk. Parents states everything is getting easier Home, will call as needed and plans to attend [facility] group.
== END 2023-11-29 11:59 | disposition home or self-care (01) ==
LOC: FBCO 08:20
PROVIDERS: Visit Provider Obstetrics & Gynecology
DX: Z39.1 Encounter for care and examination of lactating mother (principal)
CPT/HCPCS: G0463

== ENCOUNTER 2024-08-06 20:36 | Outpatient (REF) | payer BC, SELFPAY ==
--- OUTSIDE RECORDS SUMMARY | 2024-08-06 20:39 | XMS_ITS | CCD ---
Author Organization [facility] CliniSyid Care Team Providers Care Chief Digital Media Officer Name Role Phone Arpit Parekh Primary Care Provider TERRENCE WOLF Attending Unavailable ARPIT PAREKH Primary Care Unavailable ARPIT PAREKH Primary Care Unavailable WILLIAM WHITAKER Attending Unavailable ASTON, ALICIA Attending Unavailable RITA, NAHED Attending Unavailable ASTON, ALICIA Attending Unavailable RITA, NAHED Attending Unavailable ASTON, ALICIA Attending Unavailable RITA, NAHED Attending Unavailable RITA, [...] sources) Irregular periods; Translations: [Irregular menstruation, unspecified] 10-17-2016 Chronic Other complications of (1 source) Mild [...] Normal 0.00-0.20 [facility] Comment on above: Performed By: #### C DP, CP #### [facility] [address] [place] [address] Lubrication Worker: Mike Forde MD Abs.Imm.Granulocyte 0.01 k/uL Normal 0.00-0.30 [facility] Comment on above: Performed By: #### C DP, CP #### [facility] [address] [place] [address] Lubrication Worker: Mike Forde MD Abs.Neutrophil (Seg) 6.24 k/uL Normal 2.5-7.0 [facility] Comment on above: Performed By: #### C DP, CP #### [facility] [address] [place] [address] Lubrication Worker: Mike Forde MD Basophils/100 WBC (Bld) 0 % Normal 0-2 [facility] Comment on above: Performed By: #### C DP, CP #### [facility] [address] [place] [address] Lubrication Worker: Mike Forde MD Eosinophils (Bld) [#/Vol] 0.00 10*3/uL Normal 0.00-0.40 [facility] Comment on above: Performed By: #### C DP, CP #### [facility] [address] [place], [place] [id number] Lubrication Worker: Mike Forde MD Eosinophils/100 WBC (Bld) 0 % Normal 0-5 [facility] Comment on above: Performed By: #### C DP, CP #### [facility] [address] [place], [place] [phone] Lubrication Worker: Mike Forde MD Erythrocyte distribution width (RBC) [Ratio] 11.9 % Low 12.1-15.2 [facility] Comment on above: Performed By: #### C DP, CP #### [facility] [address] [place], [place] [id number] Lubrication Worker: Mike Forde MD Hematocrit (Bld) [Volume fraction] 41.1 % Normal 36.0-46.0 [facility] Comment on above: Performed By: #### C DP, CP #### [facility] [address] [place], [place] [phone] Lubrication Worker: Mike Forde MD Hemoglobin (Bld) [Mass/Vol] 14.5 g/dL Normal 12.0-16.0 [facility] Comment on above: Performed By: #### C DP, CP #### [facility] [address] [place], [place] [id number] Lubrication Worker: Mike Forde MD Immature granulocytes/100 WBC (Bld) 0 % Normal 0-5 [facility] Comment on above: Performed By: #### C DP, CP #### [facility] [address] [place], [place] [phone] Lubrication Worker: Mike Forde MD Lymphocytes (Bld) [#/Vol] 1.74 10*3/uL Normal 1.00-4.80 [facility] Comment on above: Performed By: #### C DP, CP #### [facility] [address] [place], [place] [phone] Lubrication Worker: Mike Forde MD Lymphocytes/100 WBC (Bld) 21 % Normal 15-40 [facility] Comment on above: Performed By: #### C DP, CP #### [facility] [address] [place] [address] Lubrication Worker: Mike Forde MD MCH (RBC) [Entitic mass] 29.2 pg Normal 26.0-34.0 [facility] Comment on above: Performed By: #### C DP, CP #### [facility] [address] [place] [phone] Lubrication Worker: Mike Forde MD MCHC (RBC) [Mass/Vol] 35.3 g/dL Normal 31.0-37.0 [facility] Comment on above: Performed By: #### C DP, CP #### [facility] [address] [place] [address] Lubrication Worker: Mike Forde MD MCV (RBC) [Entitic vol] 82.9 fL Normal 80.0-100.0 [facility] Comment on above: Performed By: #### C DP, CP #### [facility] [address] [place] [address] Lubrication Worker: Mike Forde MD Monocytes (Bld) [#/Vol] 0.50 10*3/uL Normal 0.00-1.00 [facility] Comment on above: Performed By: #### C DP, CP #### [facility] [address] [place] [address] Lubrication Worker: Mike Forde MD Monocytes/100 WBC (Bld) 6 % Normal 4-8 [facility] Comment on above: Performed By: #### C DP, CP #### [facility] [address] [place] [address] Lubrication Worker: Mike Forde MD Neutrophil (Seg) 73 % Normal 47-75 [facility] Comment on above: Performed By: #### C DP, CP #### [facility] [address] [place], [place] [phone] ([phone] Lubrication Worker: Mike Forde MD Platelet mean volume (Bld) [Entitic vol] 10.4 fL Normal 6.0-12.0 [facility] Comment on above: Performed By: #### C DP, CP #### [facility] [address] [place], [place] [phone] ([phone] Lubrication Worker: Mike Forde MD Platelets (Bld) [#/Vol] 227 10*3/uL Normal 140-450 [facility] Comment on above: Performed By: #### C DP, CP #### [facility] [address] [place], [place] [phone] ([phone] Lubrication Worker: Mike Forde MD RBC (Bld) [#/Vol] 4.96 10*6/uL Normal 4.00-5.20 [facility] Comment on above: Performed By: #### C DP, CP #### [facility] [address] [place], [place] [phone] (486) Lubrication Worker: Mike Forde MD WBC (Bld) [#/Vol] 8.5 10*3/uL Normal 3.5-11.0 [facility] Comment on above: Performed By: #### C DP, CP #### [facility] [address] [place], [place] [phone] ([phone] Lubrication Worker: Mike Forde MD Comp Metabolic Profon 2022 Albumin [Mass/Vol] 4.2 g/dL Normal 3.5-5.2 [facility] Comment on above: Performed By: #### C DP, CP #### [facility] [address] [place], [place] [phone] (135) Lubrication Worker: Mike Forde MD Alkaline Phos 48 U/L Normal 35-104 [facility] Comment on above: Performed By: #### C DP, CP #### [facility] [address] [place] [address] Lubrication Worker: Mike Forde MD ALT [Catalytic activity/Vol] 12 U/L Normal 5-33 [facility] Comment on above: Performed By: #### C DP, CP #### [facility] [address] [place] [address] Lubrication Worker: Mike Forde MD Anion gap [Moles/Vol] 15 mmol/L Normal 9-17 [facility] Comment on above: Performed By: #### C DP, CP #### [facility] [address] [place] [address] Lubrication Worker: Mike Forde MD AST [Catalytic activity/Vol] 11 U/L Normal <32 [facility] Comment on above: Performed By: #### C DP, CP #### [facility] [address] [place] [address] Lubrication Worker: Mike Forde MD Bilirubin [Mass/Vol] mg/dL Low 0.3-1.2 [facility] Comment on above: Performed By: #### C DP, CP #### [facility] [address] [place] [address] Lubrication Worker: Mike Forde MD BUN/CRE Ratio 14 Normal 9-20 [facility] Comment on above: Performed By: #### C DP, CP #### [facility] [address] [place], [place] [phone] Lubrication Worker: Mike Forde MD Calcium [Mass/Vol] 9.7 mg/dL Normal 8.6-10.4 [facility] Comment on above: Performed By: #### C DP, CP #### [facility] [address] [place], [place] [phone] Lubrication Worker: Mike Forde MD Chloride [Moles/Vol] 101 mmol/L Normal 98-107 [facility] Comment on above: Performed By: #### C DP, CP #### [facility] [address] [place], [place] [phone] Lubrication Worker: Mike Forde MD CO2 [Moles/Vol] 22 mmol/L Normal 20-31 [facility] Comment on above: Performed By: #### C DP, CP #### [facility] [address] [place], [place] [phone] Lubrication Worker: Mike Forde MD Creatinine [Mass/Vol] 0.5 mg/dL Normal 0.5-0.9 [facility] Comment on above: Performed By: #### C DP, CP #### [facility] [address] [place] [address] Lubrication Worker: Mike Forde MD GFR/1.73 sq M.predicted among non-blacks MDRD (S/P/Bld) [Vol rate/Area] mL/min/{1.73_m2} Normal >60 [facility] Comment on above: Result Comment: These [...] Performed By: #### C DP, CP #### [facility] [address] [place] [address] Lubrication Worker: Mike Forde MD Glucose [Mass/Vol] 90 mg/dL Normal 70-99 [facility] Comment on above: Performed By: #### C DP, CP #### [facility] [address] [place], [place] [phone] Lubrication Worker: Mike Forde MD Potassium [Moles/Vol] 3.5 mmol/L Low 3.7-5.3 [facility] Comment on above: Performed By: #### C DP, CP #### [facility] [address] [place], [place] [phone] Lubrication Worker: Mike Forde MD Protein [Mass/Vol] 7.5 g/dL Normal 6.4-8.3 [facility] Comment on above: Performed By: #### C DP, CP #### [facility] [address] [place], [place] [phone] Lubrication Worker: Mike Forde MD Sodium [Moles/Vol] 138 mmol/L Normal 135-144 [facility] Comment on above: Performed By: #### C DP, CP #### [facility] [address] [place], [place] [phone] Lubrication Worker: Mike Forde MD Urea nitrogen [Mass/Vol] 7 mg/dL Normal -20 [facility] Comment on above: Performed By: #### C DP, CP #### [facility] [address] [place], [place] [phone] Lubrication Worker: Mike Forde MD Basic Metabolic Profon 04-16 Anion gap [Moles/Vol] 15 mmol/L Normal - [facility] Comment on above: Performed By: #### C DP, BMP #### [facility] [address] [place], [place] [phone] Lubrication Worker: Mike Forde MD BUN/CRE Ratio 10 Normal - [facility] Comment on above: Performed By: #### C DP, BMP #### [facility] [address] [place], [place] [phone] Lubrication Worker: Mike Forde MD Calcium [Mass/Vol] 10.2 mg/dL Normal 8.6-10.4 [facility] Comment on above: Performed By: #### C DP, BMP #### [facility] [address] [place], [place] [phone] Lubrication Worker: Mike Forde MD Chloride [Moles/Vol] 98 mmol/L Normal 98-107 [facility] Comment on above: Performed By: #### C DP, BMP #### [facility] [address] [place], [place] [phone] Lubrication Worker: Mike Forde MD CO2 [Moles/Vol] 22 mmol/L Normal 20-31 [facility] Comment on above: Performed By: #### C DP, BMP #### [facility] [address] [place], [place] [phone] Lubrication Worker: Mike Forde MD Creatinine [Mass/Vol] 0.7 mg/dL Normal 0.5-0.9 [facility] Comment on above: Performed By: #### C DP, BMP #### [facility] [address] [place] [address] Lubrication Worker: Mike Forde MD GFR/1.73 sq M.predicted among non-blacks MDRD (S/P/Bld) [Vol rate/Area] mL/min/{1.73_m2} Normal >60 [facility] Comment on above: Result Comment: These [...] Performed By: #### C DP, BMP #### [facility] [address] [place] [address] Lubrication Worker: Mike Forde MD Glucose [Mass/Vol] 113 mg/dL High 70-99 [facility] Comment on above: Performed By: #### C DP, BMP #### [facility] [address] [place], [place] 1895490 Lubrication Worker: Mike Forde MD Potassium [Moles/Vol] 3.4 mmol/L Low 3.7-5.3 [facility] Comment on above: Performed By: #### C DP, BMP #### [facility] [address] [place], [place] [phone] Lubrication Worker: Mike Forde MD Sodium [Moles/Vol] 135 mmol/L Normal 135-144 [facility] Comment on above: Performed By: #### C DP, BMP #### [facility] [address] [place] [address] Lubrication Worker: Mike Forde MD Urea nitrogen [Mass/Vol] 7 mg/dL Normal 6-20 [facility] Comment on above: Performed By: #### C DP, BMP #### [facility] [address] [place] [phone] Lubrication Worker: Mike Forde MD CBC with Diffon 04-16-2023 Abs. Basophil 0.03 k/uL Normal 0.00-0.20 [facility] Comment on above: Performed By: #### C DP, BMP #### [facility] [address] [place] [address] Lubrication Worker: Mike Forde MD Abs.Imm.Granulocyte 0.02 k/uL Normal 0.00-0.30 [facility] Comment on above: Performed By: #### C DP, BMP #### [facility] [address] [place], [place] [phone] Lubrication Worker: Mike Forde MD Abs.Neutrophil (Seg) 7.51 k/uL High 2.5-7.0 [facility] Comment on above: Performed By: #### C DP, BMP #### [facility] [address] [place] [address] Lubrication Worker: Mike Forde MD Basophils/100 WBC (Bld) 0 % Normal 0-2 [facility] Comment on above: Performed By: #### C DP, BMP #### [facility] [address] [place], [place] [phone] Lubrication Worker: Mike Forde MD Eosinophils (Bld) [#/Vol] 0.03 10*3/uL Normal 0.00-0.40 [facility] Comment on above: Performed By: #### C DP, BMP #### [facility] [address] [place] [phone] Lubrication Worker: Mike Forde MD Eosinophils/100 WBC (Bld) 0 % Normal 0-5 [facility] Comment on above: Performed By: #### C DP, BMP #### [facility] [address] [place] [address] Lubrication Worker: Mike Forde MD Erythrocyte distribution width (RBC) [Ratio] 11.8 % Low 12.1-15.2 [facility] Comment on above: Performed By: #### C DP, BMP #### [facility] [address] [place] [phone] Lubrication Worker: Mike Forde MD Hematocrit (Bld) [Volume fraction] 43.4 % Normal 36.0-46.0 [facility] Comment on above: Performed By: #### C DP, BMP #### [facility] [address] [place] [phone] Lubrication Worker: Mike Forde MD Hemoglobin (Bld) [Mass/Vol] 15.5 g/dL Normal 12.0-16.0 [facility] Comment on above: Performed By: #### C DP, BMP #### [facility] [address] [place] [phone] Lubrication Worker: Mike Forde MD Immature granulocytes/100 WBC (Bld) 0 % Normal 0-5 [facility] Comment on above: Performed By: #### C DP, BMP #### [facility] [address] [place] [phone] Lubrication Worker: Mike Forde MD Lymphocytes (Bld) [#/Vol] 2.33 10*3/uL Normal 1.00-4.80 [facility] Comment on above: Performed By: #### C DP, BMP #### [facility] [address] [place] [phone] Lubrication Worker: Mike Forde MD Lymphocytes/100 WBC (Bld) 22 % Normal 15-40 [facility] Comment on above: Performed By: #### C DP, BMP #### [facility] [address] [place] [address] Lubrication Worker: Mike Forde MD MCH (RBC) [Entitic mass] 28.9 pg Normal 26.0-34.0 [facility] Comment on above: Performed By: #### C DP, BMP #### [facility] [address] [place] [address] Lubrication Worker: Mike Forde MD MCHC (RBC) [Mass/Vol] 35.7 g/dL Normal 31.0-37.0 [facility] Comment on above: Performed By: #### C DP, BMP #### [facility] [address] [place] [address] Lubrication Worker: Mike Forde MD MCV (RBC) [Entitic vol] 80.8 fL Normal 80.0-100.0 [facility] Comment on above: Performed By: #### C DP, BMP #### [facility] [address] [place] [address] Lubrication Worker: Mike Forde MD Monocytes (Bld) [#/Vol] 0.88 10*3/uL Normal 0.00-1.00 [facility] Comment on above: Performed By: #### C DP, BMP #### [facility] [address] [place] [phone] Lubrication Worker: Mike Forde MD Monocytes/100 WBC (Bld) 8 % Normal 4-8 [facility] Comment on above: Performed By: #### C DP, BMP #### [facility] [address] [place], [place] [phone] ([phone]) Lubrication Worker: Mike Forde MD Neutrophil (Seg) 70 % Normal 47-75 [facility] Comment on above: Performed By: #### C DP, BMP #### [facility] [address] [place], [place] [phone] (234) Lubrication Worker: Mike Forde MD Platelet mean volume (Bld) [Entitic vol] 10.5 fL Normal 6.0-12.0 [facility] Comment on above: Performed By: #### C DP, BMP #### [facility] [address] [place] [address] (762) Lubrication Worker: Mike Forde MD Platelets (Bld) [#/Vol] 279 10*3/uL Normal 140-450 [facility] Comment on above: Performed By: #### C DP, BMP #### [facility] [address] [place] [address] (052) Lubrication Worker: Mike Forde MD RBC (Bld) [#/Vol] 5.37 10*6/uL High 4.00-5.20 [facility] Comment on above: Performed By: #### C DP, BMP #### [facility] [address] [place] [address] (973) Lubrication Worker: Mike Forde MD WBC (Bld) [#/Vol] 10.8 10*3/uL Normal 3.5-11.0 [facility] Comment on above: Performed By: #### C DP, BMP #### [facility] [address] [place] [address] ([phone]) Lubrication Worker: Mike Forde MD CBC with Auto Differentialon 12-13-2021 Absolute Eos # 0.00 [facility] Absolute Lymph # 1.90 [facility] Absolute Pershing # 0.50 [facility] Basophils (Bld) [#/Vol] 0.00 10*3/uL [facility] Basophils/100 WBC (Bld) 0 % 0 - 2 % [facility] Differential Type YES [facility] Eosinophils/100 WBC (Bld) 0 % 0 - 5 % [facility] Hematocrit (Bld) [Volume fraction] 43.5 % 36 - 46 % [facility] Hemoglobin (Bld) [Mass/Vol] 14.6 g/dL 12.0 - 16.0 g/dL [facility] Lymphocytes/100 WBC (Bld) 21 % 15 - 40 % [facility] MCH (RBC) [Entitic mass] 28.9 pg 26 - 34 pg [facility] MCHC (RBC) [Mass/Vol] 33.5 g/dL 31 - 37 g/dL [facility] MCV (RBC) [Entitic vol] 86.2 fL 80 - 100 fL [facility] Monocytes/100 WBC (Bld) 5 % 4 - 8 % [facility] Platelet distribution width (Bld) [Ratio] 12.3 % 12.1 - 15.2 % [facility] Platelets (Bld) [#/Vol] 265 10*3/uL [facility] RBC (Bld) [#/Vol] 5.05 10*6/uL 4.0 - 5.2 m/uL [facility] Segmented neutrophils/100 WBC (Bld) 74 % 47 - 75 % [facility] Segs Absolute 6.60 [facility] WBC (Bld) [#/Vol] 9.1 10*3/uL [facility] Comprehensive Metabolic Pane davi 12-13-2021 Albumin [Mass/Vol] 4.3 g/dL 3.5 - 5.2 g/dL YASMIN N [facility] ALP (Bld) [Catalytic activity/Vol] 77 U/L 35 - 104 U/L [facility] ALT [Catalytic activity/Vol] 23 U/L 5 - 33 U/L [facility] Anion gap [Moles/Vol] 11 mmol/L 9 - 17 mmol/L [facility] AST [Catalytic activity/Vol] 15 U/L <32 [facility] Bilirubin [Mass/Vol] 0.51 mg/dL 0.30 - 1.20 mg/dL [facility] Calcium [Mass/Vol] 9.6 mg/dL 8.6 - 10.4 mg/dL [facility] Chloride [Moles/Vol] 102 mmol/L 98 - 107 mmol/L [facility] CO2 [Moles/Vol] 25 mmol/L 20 - 31 mmol/L [facility] Creatinine [Mass/Vol] 0.77 mg/dL 0.50 - 0.90 mg/dL [facility] Free PSA/Total PSA [Mass fraction] 7.4 g/dL 6.4 - 8.3 g/dL [facility] GFR >60 >60 mL/min [facility] GFR Non- >60 >60 mL/min [facility] GFR/1.73 sq M.predicted MDRD (S/P/Bld) [Vol rate/Area] [facility] Comment on above: Average GFR for 20-2 9 years old: 116 mL/min/1.73sq m Chronic Kidney Disease: <60 mL/min/1.73sq m Kidney failure: <15 mL/min/1.73sq m eGFR calculated using average adult body mass. Additional eGFR calculator available at: http://www.[employer].com.[employer]/multiple_crcl_2011.htm Glucose [Mass/Vol] 93 mg/dL 70 - 99 mg/dL [facility] Potassium [Moles/Vol] 4.2 mmol/L 3.7 - 5.3 mmol /L [facility] Sodium [Moles/Vol] 138 mmol/L 135 - 144 mmol/L [facility] Urea nitrogen (BldV) [Mass/Vol] 9 mg/dL 6 - 20 mg/dL [facility] Urea nitrogen/Creatinine (Bld) [Mass ratio] 12 [facility] Encounters Encounter Date Encounter Type Care Provider Facility Start: 01-01-2024 End: 01-01-2024 ambulatory NAHED RITA Not Available Start: 11-13-2023 End: 11-13-2023 ambulatory NAHED RITA [...] 05-30-2023 End: 05-31-2023 Emergency department patient visit [email or web address]EZIO Lozano [facility] Start: 04-16-2023 End: 04-17-2023 [facility] Start: 12-13-2021 End: 12-13-2021 Subsequent hospital visit by physician Arpit Leblanc CNP Work Phone: [facility] Comment on above: Blood in stool, zeina k; Gastroesophageal reflux disease without esophagitis; Diarrhea, unspecified type; Abdominal cramping Start: 03-01-2019 End: 03-01-2019 Subsequent hospital visit by physician Arpit Parekh [facility] Comment on above: Need for varicella v accine Procedures Date Procedure Procedure Detail Performing Clinician Start: 12-13-2021 Comprehensive metabo lic panel Arpit Parekh CORRESPONDENCE SECTION SUPERVISOR - TRANSFORMATION SPECIALIST Work Phone: Plan of Treatment Date Care Activity Detail Author Start: 11-26-2029 DTaP/Tdap/Td vaccine (3 - Td or Tdap) DTaP/Tdap/Td vaccine (3 - Td or Tdap) [facility] Start: 12-13-2022 Depression Screen Depression Screen [facility] Start: 03-14-2022 COVID-19 Vaccine (3 - Booster for Pfizer series) COVID-19 Vaccine (3 - Booster for Pfizer series) [facility] Start: 03-10-2022 Influenza vaccination Flu vaccine (S angelo Ended) [facility] Start: 01-11-2022 End: 01-11-2022 Patient encounter procedure 01/11/2022 Office Visit Family Medicine Arpit Parekh, CORRESPONDENCE SECTION SUPERVISOR - TRANSFORMATION SPECIALIST [address] [place] [address] [facility] Start: 2019 Screening for malign ant neoplasm of cervix Pap smear [facility] Start: 03-10-2019 Influenza vaccination Flu vaccine (# 1) [place], [place] Start: 2017 DTaP/Tdap/Td vaccine (1 - Tdap) DTaP/Tdap/Td vaccine (1 - Tdap) [place], [place] Start: 2016 Hepatitis C screening Hepatitis C sc reen [facility] Start: 2014 Chlamydia screen Chlamydia screen [place], [place] Start: 2014 Screening for Chlamy nathalie trachomatis Chlamydia screen [facility] Start: 2013 HIV screen HIV screen [place], [place] Start: 2013 HIV screening HIV screen [facility] Start: 2013 HPV vaccine (1 - Fem dana 3-dose series) HPV vaccine (1 - Female 3-dose series) [place], [place] Start: 2011 Varicella Vaccine (1 of 2 - 13+ 2-dose series) Varicella Vaccine (1 of 2 - 13+ 2-dose series) [place], [place] Start: 2009 HPV vaccine (1 - 2-d ose series) HPV vaccine (1 - 2-dose series) [facility] Start: 1999 Varicella vaccine (1 of 2 - 2-dose childhood series) Varicella vaccine (1 of 2 - 2-dose childhood series) [place] End: 12-13-2021 CBC W Auto Differential panel - Blood CBC with Auto Differential Lab Routine Diarrhea, unspecified type Blood in stool, gustavo 1 Occurrences starting 12/13/2021 until 12/13/2021 [place] Work Phone: Comment on above: 1 Occurrences starti ng 12/13/2021 until 12/13/2021 End: 12-13-2021 Celiac Disease Panel Celiac Disease Panel Lab Routine Diarrhea, unspecified type Abdominal cramping 1 Occurrences starting 12/13/2021 until 12/13/2021 [place] Work Phone: Comment on above: 1 Occurrences starti ng 12/13/2021 until 12/13/2021 End: 12-13-2021 Celiac Plus [place] Work Phone: Comment on above: Once for 1 Occurrenc es starting 12/13/2021 until 12/13/2021 End: 12-13-2021 Comprehensive metabolic 2000 panel - Serum or Plasma Comprehensive Metabolic Panel Lab Routine Blood in stool, gustavo Gastroesophageal reflux disease without esophagitis 1 Occurrences starting 12/13/2021 until 12/13/2021 [place] Work Phone: Comment on above: 1 Occurrences starti ng 12/13/2021 until 12/13/2021 End: 03-01-2019 Varicella Zoster Antibody, IgG Varicella Zoster Antibody, IgG Lab Routine Need for varicella vaccine 1 Occurrences starting 03/01/2019 until 03/01/2019 [place] Comment on above: 1 Occurrences starti ng 03/01/2019 until 03/01/2019 Varicella Zoster Antibody, IgG Varicella Zoster Antibody, IgG Lab Routine Need for varicella vaccine 03/01/2019 11:50 AM EDT [facility] Immunizations Immunization Date Immunization Notes Care Provider Rohit mcnally 09-18-2021 COVID-19, Pfizer Pur ple top, DILUTE for use, 12+ yrs, 30mcg/0.3mL dose Arpit Parekh CORRESPONDENCE SECTION SUPERVISOR - TRANSFORMATION SPECIALIST Work Phone: [facility] [employer] [facility] Work Phone: 11-27-2019 Hepatitis B vaccine (recombinant), CpG adjuvanted Arpit Parekh [facility] Work Phone[facility] Work Phone: 11-27-2019 tetanus toxoid, redu gordon diphtheria toxoid, and acellular pertussis vaccine, adsorbed Arpit Parekh [facility] [employer] [facility] Work Phone: [facility] Work Phone: 03-27-2019 hepatitis B vaccine, adult dosage Arpit Parekh [facility] Work Phone: [facility] Work Phone: 03-27-2019 measles, mumps and rubella virus vaccine Arpit Parekh [facility] [employer] [facility] Work Phone: [facility] Work Phone: 03-03-2019 measles, mumps and rubella virus vaccine Arpit Parekh [facility] [employer] [facility] Work Phone: [facility] Work Phone: 02-25-2019 hepatitis B vaccine, adult dosage Arpit Parekh [facility] Payers Date Payer Category Payer Unknown [id number] 2022 Private Health Insurance [id number] 2018 Unknown BCBS [place] - [place] P PO xxxxxxxxxxxx 2018-Present [address] [place] [address] xxxxxxxxxxxx [id number] 2018 Unknown [id number] 1998 Unknown [id number] 2.16.840.1.693908.3.579.2 .174 1998 Unknown [id number] 2.16.840.1.226167.3.579.2 .174 1998 Unknown [id number] 2.16.840.1.659971.3.579.2 .1259 1998 Unknown [id number] 2.16.840.1.576654.3.579.2 .9 1998 Unknown [id number] 2.16.840.1.190758.3.579.2 .1259 1998 Unknown [id number] 2.16.840.1.076196.3.579.2 .9 1998 Unknown [id number] 2.16.840.1.280978.3.579.2 .1259 1998 Unknown [id number] 2.16.840.1.754524.3.579.2 .9 1998 Unknown [id number] 2.16.840.1.537799.3.579.2 .1259 1998 Unknown [id number] 2.16.840.1.942642.3.579.2 .9 1998 Unknown [id number] 2.16.840.1.221570.3.579.2 .9 1998 Unknown [id number] 2.16.840.1.713914.3.579.2 .9 1998 Unknown [id number] 2.16.840.1.419539.3.579.2 .1259 Social History Date Type Detail Facility Start: 04-25-2016 End: 11-26-2018 Tobacco smoking status NHIS Never smoker [place], [place] Start: 11-26-2018 Alcohol intake No [place], [place] Start: 1998 Sex Assigned At Not on file [place] Start: 04-25-2016 Tobacco use and exposure Smokeless tobacco non-user 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 [facility] [employer] Work Phone: Start: 12-13-2021 Alcohol intake 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) [facility] Phone: Start: 12-13-2021 History SDOH Financial 5 [facility] Phone: Start: 12-13-2021 History 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 1 [facility] Phone: Evaluation note Note Date & Type Note Facility Evaluation note Diagnosis Blood in stool, gustavo Blood in stool Gastroesophageal reflux disease without esophagitis Esophageal reflux Diarrhea, unspecified type Abdominal cramping Abdominal pain, unspecified site documented in this encounter [facility] Phone: Assessments Diagnosis Need for varicella vaccine Need for prophylactic vaccination and inoculation against varicella Advance Directives No Advanced Directives Records FoundDocuments on File Type Date Recorded Patient Executive Account Manager Expl anation Advance Directives and Living Will Power of Warehouse Inventory Clerk Documents on File Type Date Recorded Patient Executive Account Manager Expl anation ACP-Advance Directive ACP-Power of Warehouse Inventory Clerk Summary Purpose Family History No Family History Records FoundNo Family History Records Found Additional Source Comments Care Teams (unrecognized sec tion and content) Chief Digital Media Officer Relationship Specialty Start Date End Date Arpit Parekh, CORRESPONDENCE SECTION SUPERVISOR - TRANSFORMATION SPECIALIST [address] [place] [address] PCP - General Nurse Practitioner 11/23/16 INFORMATION SOURCE (unrecogn ized section and content) DATE CREATED AUTHOR 06/02/2023 Rachel allen DATE CREATED AUTHOR AUTHOR'S ORGANIZ ATION 01/02/2024 [facility] FOR RECORDS PERTAINING TO PATIENTS WHO [...] BE BASED ON THE PRIMARY CLINICAL RECORDS. [facility] provides no warranty or guarantee of the accuracy or completeness of information in this document.
[2024-08-12 12:08] LABS: Age Gdln ACOG Testing Note (.); IGP, rfx Aptima HPV ASCU Note (.)
== END 2024-08-06 20:37 | disposition home or self-care (01) ==
LOC: LAB 20:36
PROVIDERS: Visit Provider Obstetrics & Gynecology
DX: Z01.419 Encounter for gynecological examination (general) (routine) without abnormal findings (principal)
CPT/HCPCS: 88175